=== PATIENT | female | born 1975 ===

== ENCOUNTER 2020-08-29 10:29 | Inpatient (IN) | payer OTHER, SELFPAY ==
[2020-08-29] VITALS (10 sets, daily range): BP systolic 117–140; BP diastolic 66–84; PULSE 58–80; RESP 14–18; TEMP 36.4–37.1; O2SAT 97–100; BMI 25.7
--- NOTE | 2020-08-29 11:25 | ECG_ITS ---
Test Reason : CHEST PRESSURE Blood Pressure : / mmHG Vent. Rate : 054 BPM Atrial Rate : 054 BPM P-R Int : 124 ms QRS Dur : 084 ms QT Int : 392 ms P-R-T Axes : 029 074 053 degrees QTc Int : 371 ms Sinus bradycardia Otherwise normal ECG No previous ECGs available Referred By: Marcio Lauren Electronically Signed By:ELKE SAMPSON MD
--- NOTE | 2020-08-29 11:25 | ED.SYNCOPE ---
HPI - Syncope General Chief Complaint: Headache Stated Complaint: syncope Time Seen by Provider: 08/29/20 12:27 Source: patient Mode of arrival: ambulatory Limitations: no limitations History of Present Illness HPI narrative: patient presents to ED for or witness syncopal fall that occurred on the 16 of August and patient states since then she has had near syncopal episodes, headache, and dizziness. Patient states denies any slurred speech, loss of vision, black curtain like loss of vission in either eye at one time, paralysis, neck pain, fever, or chills. . patient states she has had moments since 08/16 where she feels like she is about to pass out and feels like she is blacking out ( in terms of vision becoming dark) , but never actually passing out. Patient states she gathers herself and never loses consciousness. patient states this has happened before in the past due to low blood pressure. MD complaint: almost passed out Related Data Allergies Allergy/AdvReac Type Severity Reaction Status Date / Time erythromycin base Allergy Severe PANCREATITI Unverified 06/28/20 19:35 [ERYTHROMYCIN BASE] S Penicillins [PCN] Allergy Severe HIVES Unverified 06/28/20 19:35 Review of Systems Review of Systems: Yes all other systems are reviewed and are negative Constitutional: Constitutional: Reports as per HPI and Reports no additional constitutional complaints Eyes: Eyes: Reports as per HPI and Reports no additional eye complaints ENT: Reports system reviewed and no additional complaints, except as documented and Reports as per HPI Cardiovascular: Cardiovascular: Reports as per HPI and Reports no additional cardiovascular complaints Respiratory: Respiratory: Reports as per HPI and Reports no additional respiratory complaints Gastrointestinal: Gastrointestinal: Reports as per HPI and Reports no additional gastrointestinal complaints Musculoskeletal: Musculoskeletal: Reports no additional musculoskeletal complaints and Reports as per HPI Neurologic: Reports system reviewed and no additional complaints, except as documented and Reports as per HPI Psychiatric: Psychiatric: Reports no additional psychiatric complaints and Reports as per HPI [facility] [place] Social History Social History Alcohol intake: never Smoking Status: Never smoker Use of substances other than those prescribed or required for medical reasons: No Advance Directives: No Advance Directives Information Provided: Yes Physical Exam Vital Signs: Vital Signs: Last Vital Signs Temp 98.7 F 08/29/20 11:28 Pulse 80 08/29/20 11:28 Resp 18 08/29/20 11:28 BP 140/81 H 08/29/20 11:28 Pulse Ox 100 08/29/20 15:22 Body Mass Index 25.7 Const: General: cooperative, healthy appearing, comfortable, no acute distress, well developed, alert and awake Orientation/consciousness: patient oriented x3 HENMT: Head: Yes normal to inspection, Yes No palpable skull fracture present, Yes normocephalic, Yes atraumatic, No Friend's sign, No contusion, No hematoma, No laceration, No occipital foramen tenderness, No palpable skull fracture, No raccoon eyes, No scalp lesion, No scalp tenderness, No Temporal artery tenderness present and No periorbital ecchymosis Eyes: General: appearance normal, both eyes and all related structures Neck: Neck: Yes normal visual inspection, Yes full ROM, Yes no lymphadenopathy, Yes no meningeal signs, Yes trachea midline and No tender Chest: Chest palpation & inspection: normal inspection of the chest, normal palpation of entire chest wall and no localized rib tenderness Resp: Effort & Inspection: normal respiratory effort and able to speak in complete sentences Auscultation: clear to auscultation bilaterally Cardio: Jugular venous distension: no JVD Heart sounds: S1 normal heart sound present and S2 normal heart sound present GI: Inspection: Yes normal to inspection and No abdominal wall ecchymosis Palpation (GI): not firm, nontender, no guarding and not rigid : General: No CVA tenderness and Yes no CVA tenderness Back/Spine/Pelvis: Back: no CVA tenderness, No CVA tenderness and No back tenderness Skin: General skin exam: no rashes or lesions noted Neuro: General: patient oriented x3, gait normal, no meningeal signs and CN's II-XI intact bilaterally Cranial nerves: Yes CN's II-XII intact bilaterally Extrem: General: Yes normal to inspection and Yes full ROM Psych: Appearance: grossly normal and well kempt Course Course Course Narrative: patient presently is asymptomatic. Due to patient stating falling hitting head having symptoms ever since. Patient have his CT scan to rule out any bleed or fracture. Patient also have a cardiac workup and also D-dimer due to patient states she is on oral control pills. Although present patient denies any chest pain or shortness of breath. Patient also states chronic right shoulder and right buttock pain due to chronic disease that caused joint issues. Reevaluation(s) Reevaluation #1: patient not in any distress. patient's D-dimer came back positive. Patient sent for chest CT to rule out PE and it came back positive for small PE. Head CT negative for bleed. Spoke with hospitalist who accepted case for patient. Patient started on Lovenox. Time: 16:29 MDM - Syncope MDM Narrative Medical decision making narrative: PE Lab Data Result diagrams: 08/29/20 11:40 08/29/20 11:40 Labs: Lab Results 08/29/20 08/29/20 08/29/20 Range/Units 11:40 11:40 11:40 WBC (4.8-10.8) X10*3/uL RBC (4.20-5.50) X10*6/uL Hgb (12.0-16.0) g/dl Hct (37-47) % MCV (80-98) fL MCH (27.0-33.0) pg MCHC (31.0-35.0) g/dl RDW (11.0-16.0) % Plt Count (160-400) X10*3/uL MPV (9.4-12.3) fL Immature Gran % (Auto) (0.0-0.4) % Neut % (Auto) (45-73) % Lymph % (Auto) (20-40) % Andrew % (Auto) (2-11) % Eos % (Auto) (0-4) % Baso % (Auto) (0-2) % Lymph # (Auto) (1.2-4.9) X10*3/uL Andrew # (Auto) (0.1-1.2) X10*3/uL Eos # (Auto) (0.0-0.4) X10*3/uL Baso # (Auto) (0.0-0.2) X10*3/uL Abs Immat Gran (auto) (0.00-0.03) X10*3/uL Absolute Neuts (auto) (2.0-8.3) X10*3/uL Absolute Nucleated RBC (0.0-0.012) X10*3/uL Nucleated RBC % (auto) (0.0-0.2) /100WBC PT 11.1 (10.8-13.0) SEC INR 0.9 (0.9-1.1) APTT 29.0 (24.1-38.0) SEC D-Dimer 958 NG/ML Sodium 133 L (135-145) mmol/L Potassium 4.9 (3.3-5.1) mmol/l Chloride 102 (96-108) mmol/L Carbon Dioxide 24 (22-29) mmol/L Anion Gap 12 (12-20) BUN 10 (9-16) mg/dL Creatinine 0.81 (0.5-1.4) mg/dL Estim Creat Clear Calc 81.6 Estimated GFR > 60 Random Glucose 88 (60-115) mg/dL Calcium 8.3 L (8.4-10.2) mg/dL Total Bilirubin 0.4 (0.0-1.0) mg/dL AST 19 (5-31) U/L ALT 11 (0-31) U/L Alkaline Phosphatase 55 (39-117) U/L Troponin I High Sens < 3.5 (<3.5-17.0) ng/L Total Protein 6.9 (6.5-8.0) g/dL Albumin 3.9 (3.5-5.0) g/dL Beta HCG, Quant < 2 mIU/mL 1118/20 Range/Units 11:40 WBC 6.5 (4.8-10.8) X10*3/uL RBC 4.00 L (4.20-5.50) X10*6/uL Hgb 11.5 L (12.0-16.0) g/dl Hct 35.9 L (37-47) % MCV 89.8 (80-98) fL MCH 28.8 (27.0-33.0) pg MCHC 32.0 (31.0-35.0) g/dl RDW 13.4 (11.0-16.0) % Plt Count 341 (160-400) X10*3/uL MPV 9.0 L (9.4-12.3) fL Immature Gran % (Auto) 0.2 (0.0-0.4) % Neut % (Auto) 61.2 (45-73) % Lymph % (Auto) 29.2 (20-40) % Andrew % (Auto) 7.3 (2-11) % Eos % (Auto) 1.9 (0-4) % Baso % (Auto) 0.2 (0-2) % Lymph # (Auto) 1.9 (1.2-4.9) X10*3/uL Andrew # (Auto) 0.5 (0.1-1.2) X10*3/uL Eos # (Auto) 0.1 (0.0-0.4) X10*3/uL Baso # (Auto) 0.0 (0.0-0.2) X10*3/uL Abs Immat Gran (auto) 0.01 (0.00-0.03) X10*3/uL Absolute Neuts (auto) 4.0 (2.0-8.3) X10*3/uL Absolute Nucleated RBC 0.000 (0.0-0.012) X10*3/uL Nucleated RBC % (auto) 0.0 (0.0-0.2) /100WBC PT (10.8-13.0) SEC INR (0.9-1.1) APTT (24.1-38.0) SEC D-Dimer NG/ML Sodium (135-145) mmol/L Potassium (3.3-5.1) mmol/l Chloride (96-108) mmol/L Carbon Dioxide (22-29) mmol/L Anion Gap (12-20) BUN (9-16) mg/dL Creatinine (0.5-1.4) mg/dL Estim Creat Clear Calc Estimated GFR Random Glucose (60-115) mg/dL Calcium (8.4-10.2) mg/dL Total Bilirubin (0.0-1.0) mg/dL AST (5-31) U/L ALT (0-31) U/L Alkaline Phosphatase (39-117) U/L Troponin I High Sens (<3.5-17.0) ng/L Total Protein (6.5-8.0) g/dL Albumin (3.5-5.0) g/dL Beta HCG, Quant mIU/mL ECG Data Interpretation: sinus bradycardia. Ventricular rate 54. AR interval 124. QRS 84. Negative STEMI Discharge Plan Discharge Clinical Impression: Pulmonary embolism Patient Disposition: Admitted As Inpatient
[2020-08-29 11:53] LABS: INTERNATIONAL NORM RATIO 0.9 (0.9-1.1); Prothrombin Time 11.1 SEC (10.8-13.0)
[2020-08-29] MEDS: 0.9 % Sodium Chloride 1,000 ML 999 ML IVCONT (11:58)
[2020-08-29 12:15] LABS: MANUAL DIFF FLAG NO
[2020-08-29 12:16] LABS: Basophils Percent Auto 0.2 % (0-2); Eosinophils Absolute Auto 0.1 X10*3/uL (0.0-0.4); Eosinophils Percent Auto 1.9 % (0-4); Hematocrit 35.9 % (37-47); Hemoglobin 11.5 g/dl (12.0-16.0); Imm Gran Abs Auto 0.01 X10*3/uL (0.00-0.03); Imm Gran Pct Auto 0.2 % (0.0-0.4); Lymphocytes Absolute Auto 1.9 X10*3/uL (1.2-4.9); Lymphocytes Percent Auto 29.2 % (20-40); Mean Corpuscular Hemoglobin 28.8 pg (27.0-33.0); Mean Corpuscular Volume 89.8 fL (80-98); Monocytes Absolute Auto 0.5 X10*3/uL (0.1-1.2); Monocytes Percent Auto 7.3 % (2-11); Neutrophils Percent Auto 61.2 % (45-73); Platelet Count 341 X10*3/uL (160-400); Red Cell Distribution Width 13.4 % (11.0-16.0); White Blood Count 6.5 X10*3/uL (4.8-10.8)
[2020-08-29 12:21] LABS: HCG Quantitative < 2 mIU/mL; Troponin-I High Sensitivity < 3.5 ng/L (<3.5-17.0)
[2020-08-29 12:36] LABS: Alanine Aminotransferase 11 U/L (0-31); Albumin Level 3.9 g/dL (3.5-5.0); Alkaline Phosphatase 55 U/L (39-117); Anion Gap 12 (12-20); Aspartate Amino Transferase 19 U/L (5-31); Bilirubin Total 0.4 mg/dL (0.0-1.0); Blood Urea Nitrogen 10 mg/dL (9-16); Calcium 8.3 mg/dL (8.4-10.2); Carbon Dioxide 24 mmol/L (22-29); Chloride 102 mmol/L (96-108); Creatinine Clr Calc Pharmacy 81.6; Estimated Glomerular Filt Rate > 60; Glucose Random 88 mg/dL (60-115); Potassium 4.9 mmol/l (3.3-5.1); Sodium 133 mmol/L (135-145); Total Protein 6.9 g/dL (6.5-8.0)
[2020-08-29 12:40] LABS: D Dimer 958 NG/ML
--- NOTE | 2020-08-29 13:13 | CT_ITS ---
EXAMINATION: CT HEAD WITHOUT CONTRAST CLINICAL INFORMATION: Syncope. COMPARISON: None TECHNIQUE: Contiguous axial imaging was performed from the skull base to vertex without intravenous administration of contrast. Multiplanar reformatted images are submitted. This CT examination was performed using dose optimization techniques as appropriate, variously including the following: *Automated exposure control *Adjustment of mA and/or kV according to patient size (this includes techniques or standardized protocols for targeted exams where dose is matched to indication/reason for exam; i.e. extremities or head) *Use of iterative reconstruction technique DLP: 635 mGy-cm FINDINGS: There is no evidence of acute intracranial hemorrhage or territorial infarction. No abnormal mass effect or midline shift is seen. Gomez to white matter differentiation is well preserved. No extra-axial fluid collections are identified. The ventricles are normal in size. There is no abnormal attenuation within the brain parenchyma. The osseous structures and soft tissues are normal. The mastoid air cells and visualized portions of the paranasal sinuses are well aerated. CT/CT head/brain wo con IMPRESSION: No acute intracranial pathology.
--- NOTE | 2020-08-29 13:13 | CT_ITS ---
EXAMINATION: CT ANGIOGRAM OF THE CHEST WITH AND WITHOUT CONTRAST (CT PULMONARY ANGIOGRAM FOR PE) CLINICAL INFORMATION: Elevated d-dimer, rule out pulmonary embolism. COMPARISON: None TECHNIQUE: Prior to contrast administration, noncontrast localization images were obtained. Subsequently, multidetector volumetric imaging was performed from the thoracic inlet to below the diaphragms following the administration of 65 mLOmnipaque 350 intravenous contrast. No contrast reaction reported Sagittal, coronal, and MIP oblique sagittal reformatted images were obtained on the CT workstation, uploaded to PACS, and reviewed. This CT examination was performed using dose optimization techniques as appropriate, variously including the following: *Automated exposure control *Adjustment of mA and/or kV according to patient size (this includes techniques or standardized protocols for targeted exams where dose is matched to indication/reason for exam; i.e. extremities or head) *Use of iterative reconstruction technique Total exam dose-length product 235 mGy-cm FINDINGS: QUALITY OF STUDY/CONTRAST BOLUS: Satisfactory. PULMONARY ARTERIES: Filling defects are seen and subsegmental branches in the anterior posterior segment of the right lower lobe. No large filling defects are seen in the central arterial branches. THORACIC AORTA: No aneurysm or dissection. LUNGS/PLEURA/AIRWAYS: No significant/suspicious pulmonary nodule is seen. There are no pleural effusions. The airways are patent. MEDIASTINUM: Normal heart size. The thyroid gland is unremarkable. No pericardial effusion. No hilar or mediastinal lymphadenopathy. No evidence of septal bowing or right heart strain. CHEST WALL/AXILLA: No axillary or internal mammary lymphadenopathy. Bilateral subpectoral breast implants are seen in place without abnormality. OSSEOUS STRUCTURES: No acute or suspicious osseous abnormality. UPPER ABDOMEN: Unremarkable. No reflux of contrast into the hepatic veins to suggest elevated right heart pressures. CT/CT angio chest PE protocol IMPRESSION: 1. Positive pulmonary emboli in the anterior posterior segment of the right lower lobe. No other significant pulmonary abnormality. This critical result was discussed with RODERICK Hernandez at 2:19 PM on 08/29/2020 and it was ascertained that the content and urgency of the report was understood at the time of direct communication.
[2020-08-29] MEDS: iohexoL 350 MG/ML 100 ML INFUS..BTL IV (13:37)
[2020-08-29] MEDS: Enoxaparin Sodium 100 MG/ML SYRINGE 65 MG SUBCUT (15:19)
--- NOTE | 2020-08-29 15:20 | PC.NURSE ---
pt medictaed per emar, ambulating to bathroom att w steady gait. awaiting hospitalist eval.
[2020-08-29 16:48] LABS: COVID-19 Test Negative (Negative)
--- NOTE | 2020-08-29 17:53 | US_ITS ---
EXAMINATION: US VENOUS ULTRASOUND WITH DOPPLER LOWER EXTREMITY, BILATERAL CLINICAL INFORMATION: Pulmonary emboli. COMPARISON: None TECHNIQUE: Ultrasound of the deep veins is performed from the hip to the calf with compression sonography and color and pulse Doppler assessment. Spectral analysis with color-flow imaging is performed. FINDINGS: RIGHT: There is normal venous compression and respiratory variation and augmented flow. The visualized common femoral vein, superficial femoral vein, profunda femoral vein, popliteal vein, and the trifurcation region shows no evidence of deep venous thrombosis. There is no significant popliteal fossa cyst. LEFT: There is normal venous compression and respiratory variation and augmented flow. The visualized common femoral vein, superficial femoral vein, profunda femoral vein, popliteal vein, and the trifurcation region shows no evidence of deep venous thrombosis. There is no significant popliteal fossa cyst. There is a normal-appearing lymph node with fatty deondre and a short axis diameter 0.8 cm in the left groin. If the patient's symptoms persist, followup ultrasound in 5 days 7 days might be of value to exclude proximal propagation from a non-visualized calf vein. US/US venous duplex LE BI IMPRESSION: No DVT demonstrated in the bilateral lower extremity.
--- NOTE | 2020-08-29 17:54 | US_ITS ---
EXAMINATION: US EXTRACRANIAL CAROTID DUPLEX, BILATERAL CLINICAL INFORMATION: Syncope COMPARISON: CTA head on 08/29/2020 TECHNIQUE: Real-time ultrasound and Doppler techniques (integrating B-mode 2-D vascular images, Doppler spectral analysis and color-flow Doppler imaging) were utilized to interrogate the extracranial carotid arteries, the vertebral arteries and proximal subclavian arteries bilaterally. The degree of stenosis is determined by criteria similar to NASCET. FINDINGS: Right Side: 1. There is no atherosclerotic plaque seen in the bifurcation/proximal ICA region. 2. The common carotid artery PSV proximally is 77 cm/s and distally 75 cm/s. 3. The proximal internal carotid artery velocities are 74 cm/s systolic and 30 cm/s diastolic. 4. The proximal external carotid artery PSV is 94 cm/s. 5. The vertebral artery shows antegrade flow. 6. The subclavian artery waveforms are normal. Left Side: 1. There is no atherosclerotic plaque seen in the bifurcation/proximal ICA region. 2. The common carotid artery PSV proximally is 90 cm/s and distally 83 cm/s. 3. The proximal internal carotid artery velocities are 97 cm/s systolic and 36 cm/s diastolic. 4. The proximal external carotid artery PSV is 88 cm/s. 5. The vertebral artery shows antegrade flow. 6. The subclavian artery waveforms are normal. US/US carotid duplex BI IMPRESSION: 1. RIGHT: Normal right internal carotid artery without atherosclerotic plaque or hemodynamically significant stenosis. 2. LEFT: Normal left internal carotid artery without atherosclerotic plaque or hemodynamically significant stenosis.
--- NOTE | 2020-08-29 17:55 | P.HPHOSP_ITS ---
History of Present Illness Date of Service: 08/29/20 Chief Complaint: Syncope 45-year-old female who has history of dizziness she says from last year, but said she never passed out , she says usually when she tried to stand and walk she feel dizzy but she take it easy and does not had any episode of passing out until 5 days ago when she was sitting with her child and tried to stand up quickly to do something and then she does not remember she was on the floor- before passing out she says that she felt like she is blacking out and everything going dark, denies any chest pain or shortness of breath or palpitat ions or any seizure-like activity before that. 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 Hirsch who has done outpatient MRI with she is shows subchondral sclerosis in the left hip and she has outpatient appointment being made for ortho. She also says that she is eating and drinking as she regularly does, her orthostatics are fine. Labs hays has mild anemia, hyponatremia mild, EKG shows sinus bradycardia mild. Past medical history hays: EDS hypermobility type. Past surgical history: 1. Has left foot injury has brace. 2. She has ACL replacement and revision of right knee area. 3. Left hip subchondral sclerosis 4. Spinal fusion in neck C5-C6 area 5. Patient also had right shoulder surgery because of arthritis as per the patient. Allergy hays: She says she is allergic to penicillin it gives her hives And also she is allergic to erythromycin-she got pancreatitis as per the patient. Social history hays: Patient lives with her son, denies any use of any recreational drugs, EtOH use, no smoking. Review of Systems Review of Systems: Patient denies any chest pain or shortness of breath or abdominal pain or fever or chills or urinary complaints Patient has left foot pain which is chronic from 2 years due to foot injury Also has left hip pain area due to subchondral sclerosis as per the patient, and limited range of motion. Denies any weakness or numbness or any blurry vision Neurologic: Reports system reviewed and no additional complaints, except as documented and Reports as per [facility] Medical History EDS (Juan-Danlos syndrome) Subchondral sclerosis Surgical History H/O knee surgery H/O shoulder surgery Social History Household Members: Children Housing: Apartment Do you presently have visiting nurse or other home services: No Alcohol intake: never Smoking Status: Never smoker Smoked in Last 30 Days: No Patient Interested in Nicotine Replacement: No Patient Given Instructions on How to Stop Smoking: No Second Hand Smoke Exposure: No Use of substances other than those prescribed or required for medical reasons: No Currently Displaying Signs/Symptoms of Drug Intoxication Withdrawal: No Advance Directives: No Advance Directives Information Provided: Yes Do you have thoughts of harming others: None Do you have a plan to hurt others: No Plan service: No Current occupational status: unemployed Meds Allergies Allergy/AdvReac Type Severity Reaction Status Date / Time erythromycin base Allergy Severe PANCREATITI Unverified 06/28/20 19:35 [ERYTHROMYCIN BASE] S Penicillins [PCN] Allergy Severe HIVES Unverified 06/28/20 19:35 Home Medications Medication Instructions Recorded Confirmed Type buspirone 1 tab PO BID 08/29/20 08/29/20 History clonazepam 0.5 tab PO TID PRN 08/29/20 08/29/20 History dextroamphetamine-amphetamine 1 cap PO QAM 08/29/20 08/29/20 History dextroamphetamine-amphetamine 1 cap PO QAM 08/29/20 08/29/20 History gabapentin 1 tab PO TID 08/29/20 08/29/20 History norethindrone-ethin estradiol 1 tab PO DAILY 08/29/20 08/29/20 History [Nortrel 0.5/35 (28)] oxycodone-acetaminophen 1 tab PO Q8H PRN 08/29/20 08/29/20 History tizanidine 1 tab PO Q8H PRN 08/29/20 08/29/20 History vortioxetine [Trintellix] 1 tab PO DAILY 08/29/20 08/29/20 History Physical Exam Vital Signs and Narrative: Vital Signs: Last Vital Signs Temp 98.7 F 08/29/20 11:28 Pulse 75 08/29/20 16:28 Resp 16 08/29/20 16:28 BP 125/82 08/29/20 16:28 Pulse Ox 100 08/29/20 16:28 Body Mass Index 25.7 Physical exam: Constitutional Awake and Alert, No apparent distress Neck Supple, No lymphadenopathy Cvs: rrr, [id number] , no murmur res: clear to auscultation ,no rhonchii or wheezing abd: no rebound or guarding ,nt, bs present. ext pulses present , no cyanosis Left foot has brace Skin: No rash or erythema. neuro: axo3 , nonfocal. Results Labs CBC and Chem 7: 08/30/20 05:41 08/29/20 11:40 Labs: Laboratory Results - last 24 hr 08/29/20 08/29/20 08/29/20 11:40 11:40 11:40 MCV MCH MCHC RDW Plt Count MPV Immature Gran % (Auto) Neut % (Auto) Lymph % (Auto) [place] % (Auto) Eos % (Auto) Baso % (Auto) Lymph # (Auto) [place] # (Auto) Eos # (Auto) Baso # (Auto) Abs Immat Gran (auto) Absolute Neuts (auto) Absolute Nucleated RBC Nucleated RBC % (auto) PT 11.1 INR 0.9 APTT 29.0 D-Dimer 958 Anion Gap 12 Estim Creat Clear Calc 81.6 Estimated GFR > 60 Random Glucose 88 Calcium 8.3 L Total Bilirubin 0.4 AST 19 ALT 11 Alkaline Phosphatase 55 Troponin I High Sens < 3.5 Total Protein 6.9 Albumin 3.9 Beta HCG, Quant < 2 COVID-19 ([facility]ANDANA) COVID-19 Clin Com 08/29/20 08/29/20 11:40 16:23 MCV 89.8 MCH 28.8 MCHC 32.0 RDW 13.4 Plt Count 341 MPV 9.0 L Immature Gran % (Auto) 0.2 Neut % (Auto) 61.2 Lymph % (Auto) 29.2 [place] % (Auto) 7.3 Eos % (Auto) 1.9 Baso % (Auto) 0.2 Lymph # (Auto) 1.9 [place] # (Auto) 0.5 Eos # (Auto) 0.1 Baso # (Auto) 0.0 Abs Immat Gran (auto) 0.01 Absolute Neuts (auto) 4.0 Absolute Nucleated RBC 0.000 Nucleated RBC % (auto) 0.0 PT INR APTT D-Dimer Anion Gap Estim Creat Clear Calc Estimated GFR Random Glucose Calcium Total Bilirubin AST ALT Alkaline Phosphatase Troponin I High Sens Total Protein Albumin Beta HCG, Quant COVID-19 (VANDANA) Negative COVID-19 Clin Com See Note Imaging Radiologist's Impressions: Impressions Chest CTA 08/29/20 13:13 IMPRESSION: 1. Positive pulmonary emboli in the anterior posterior segment of the right lower lobe. No other significant pulmonary abnormality. This critical result was discussed with RODERICK Hernandez at 2:19 PM on 08/29/2020 and it was ascertained that the content and urgency of the report was understood at the time of direct communication. Head CT 08/29/20 13:13 IMPRESSION: No acute intracranial pathology. Assessment and Plan (1) Pulmonary embolism: Status: Acute (2) EDS (Juan-Danlos syndrome): Status: Inactive (3) Oral contraceptive use: Status: Acute Patient came with syncopal which happened 5 days ago, still feel on and off dizzy subsequently came to the ED: Workup shows pulmonary embolism -as per ED patient was started on Lovenox and admission is requested for syncope and pulmonary embolism. 1. Pulmonary embolism: Probably ? Oral contraceptive use, limited mobility might be contributing Patient was started on Lovenox already Venous duplex 2. syncope: Unclear etiology trops negative, ekg bradycardia Orthostasis negative Added carotid duplex and echo Cardiology evaluation in the morning 3.EDS: Patient has hypermobility type Has left hip subchondral sclerosis and has pain-managing with pain medication and muscle relaxer out patiently as per patient. full code
[2020-08-29] MEDS: Cyclobenzaprine HCl 10 MG TABLET PO (17:59)
[2020-08-29] MEDS: Gabapentin 600 MG TABLET PO (17:59)
[2020-08-29] MEDS: oxyCODONE HCl Immed Release 5 MG TABLET PO (17:59)
--- NOTE | 2020-08-29 18:17 | PC.NURSE ---
pt given one time dose of prn pain medication, tolerating po w.o issue.
--- NOTE | 2020-08-29 23:24 | PC.NURSE ---
called to c to give report and Pee anand will call back for report.
--- NOTE | 2020-08-29 23:44 | PC.NURSE ---
report given to Pee anand.
--- NOTE | 2020-08-30 00:17 | PC.NURSE ---
[place] [facility] [place]
[2020-08-30 00:35] VITALS: BP 151/90; PULSE 64; RESP 16; TEMP 37.1; O2SAT 99
[2020-08-30] MEDS: 0.9 % Sodium Chloride Flush 3 ML SYRINGE IVFLUSH (00:37)
[2020-08-30] MEDS: oxyCODONE HCl Immed Release 5 MG TABLET PO ×3 (00:48→16:06)
[2020-08-30] MEDS: TiZANidine HCL 4 MG TABLET PO ×3 (00:48→16:06)
[2020-08-30] MEDS: Gabapentin 600 MG TABLET PO ×3 (00:48→16:04)
[2020-08-30] MEDS: busPIRone HCl 5 MG TABLET 15 MG PO ×2 (00:50→09:03)
[2020-08-30] MEDS: clonazePAM 1 MG TABLET 0.5 MG PO (00:50)
[2020-08-30] MEDS: Enoxaparin Sodium 80 MG/0.8 ML SYRINGE 65 MG SUBCUT (01:12)
[2020-08-30] MEDS: 0.9 % Sodium Chloride 1,000 ML 100 ML IVCONT ×2 (01:13→09:58)
[2020-08-30 03:47] VITALS: BP 82/53; BP 98/59; PULSE 67; RESP 16; TEMP 36.9; O2SAT 95
[2020-08-30 06:56] LABS: Hematocrit 32.7 % (37-47); Hemoglobin 10.2 g/dl (12.0-16.0); Mean Corpuscular HGB Conc 31.2 g/dl (31.0-35.0); Mean Corpuscular Hemoglobin 28.1 pg (27.0-33.0); Mean Corpuscular Volume 90.1 fL (80-98); Mean Platelet Volume 9.7 fL (9.4-12.3); Platelet Count 326 X10*3/uL (160-400); Red Blood Count 3.63 X10*6/uL (4.20-5.50); Red Cell Distribution Width 13.4 % (11.0-16.0); White Blood Count 5.2 X10*3/uL (4.8-10.8)
[2020-08-30 07:43] VITALS: BP 105/62; PULSE 56; RESP 16; TEMP 36.9; O2SAT 99
[2020-08-30] MEDS: Vortioxetine Hydrobromide 20 MG TABLET PO (09:04)
--- NOTE | 2020-08-30 10:27 | PM.CNCAR ---
History of Present Illness History of Present Illness Date of Consult: August 30, 2020 Chief complaint: syncope,pulm embolism,eds hypermobility Narrative: This is a cardiology consultation regarding syncopal episode. 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 Does not have any known cardiac problems but at 1 point, she has been told to have incomplete right bundle-branch block. Otherwise no known coronary disease or myocardial infarction or cardiomyopathy or in fact any other cardiac concerns. She states that she was talking to her son and all of a sudden she felt dizzy. At that time, seems that she had a syncopal episode. However no cardiac symptoms like angina or shortness of breath or palpitations or seizure-like activity before that. She has been admitted for further evaluation. She states that she is feeling better. Chest CT has shown pulmonary embolism in the right lower lobe. She takes oral contraceptive Review of Systems Review of Systems: Cardiac-positive for dizziness syncope; no angina; shortness of breath or palpitations or leg swelling. Yes all other systems are reviewed and are negative PMFSH Past Medical History Medical History EDS (Juan-Danlos syndrome) Subchondral sclerosis Family History Pertinent family history: No significant family history per patient. Surgical History Surgical History H/O knee surgery H/O shoulder surgery Social History Social History Household Members: Children Housing: Apartment Do you presently have visiting nurse or other home services: No Alcohol intake: never Smoking Status: Never smoker Smoked in Last 30 Days: No Patient Interested in Nicotine Replacement: No Patient Given Instructions on How to Stop Smoking: No Second Hand Smoke Exposure: No Use of substances other than those prescribed or required for medical reasons: No Advance Directives: No Advance Directives Information Provided: Yes Meds Allergies Allergy/AdvReac Type Severity Reaction Status Date / Time erythromycin base Allergy Severe PANCREATITI Unverified 06/28/20 19:35 [ERYTHROMYCIN BASE] S Penicillins [PCN] Allergy Severe HIVES Unverified 06/28/20 19:35 Home Medications Medication Instructions Recorded Confirmed Type buspirone 1 tab PO BID 08/29/20 08/29/20 History clonazepam 0.5 tab PO TID PRN 08/29/20 08/29/20 History dextroamphetamine-amphetamine 1 cap PO QAM 08/29/20 08/29/20 History dextroamphetamine-amphetamine 1 cap PO QAM 08/29/20 08/29/20 History gabapentin 1 tab PO TID 08/29/20 08/29/20 History norethindrone-ethin estradiol 1 tab PO DAILY 08/29/20 08/29/20 History [Nortrel 0.5/35 (28)] oxycodone-acetaminophen 1 tab PO Q8H PRN 08/29/20 08/29/20 History tizanidine 1 tab PO Q8H PRN 08/29/20 08/29/20 History vortioxetine [Trintellix] 1 tab PO DAILY 08/29/20 08/29/20 History Physical Exam Vital Signs: Vital Signs: Last Vital Signs Temp 98.5 F 08/30/20 07:43 Pulse 56 08/30/20 07:43 Resp 16 08/30/20 07:43 BP 105/62 08/30/20 07:43 Pulse Ox 99 08/30/20 07:43 Body Mass Index 25.7 Comfortable, no distress No pallor, icterus or cyanosis HEENT -unremarkable JVD- normal Cardiac- normal heart sounds, no murmurs, gallops or rubs, normal PMI Respiratory-normal breath sounds bilaterally, no crackles, no wheeze Abdomen- soft, nontender Neuro- alert and oriented Lower extremities- no significant edema, warm well perfused Results Labs and Meds Result diagrams: 08/30/20 05:41 08/29/20 11:40 Lab results: Laboratory Results - last 24 hr 08/29/20 08/29/20 08/29/20 11:40 11:40 11:40 WBC RBC Hgb Hct MCV MCH MCHC RDW Plt Count MPV Immature Gran % (Auto) Neut % (Auto) Lymph % (Auto) [place] % (Auto) Eos % (Auto) Baso % (Auto) Lymph # (Auto) [place] # (Auto) Eos # (Auto) Baso # (Auto) Abs Immat Gran (auto) Absolute Neuts (auto) Absolute Nucleated RBC Nucleated RBC % (auto) PT 11.1 INR 0.9 APTT 29.0 D-Dimer 958 Sodium 133 L Potassium 4.9 Chloride 102 Carbon Dioxide 24 Anion Gap 12 BUN 10 Creatinine 0.81 Estim Creat Clear Calc 81.6 Estimated GFR > 60 Random Glucose 88 Calcium 8.3 L Total Bilirubin 0.4 AST 19 ALT 11 Alkaline Phosphatase 55 Troponin I High Sens < 3.5 Total Protein 6.9 Albumin 3.9 Beta HCG, Quant < 2 COVID-19 ([facility]) COVID-19 Clin Com 08/29/20 08/29/20 08/30/20 11:40 16:23 05:41 WBC 6.5 5.2 RBC 4.00 L 3.63 L Hgb 11.5 L 10.2 L Hct 35.9 L 32.7 L MCV 89.8 90.1 MCH 28.8 28.1 MCHC 32.0 31.2 RDW 13.4 13.4 Plt Count 341 326 MPV 9.0 L 9.7 Immature Gran % (Auto) 0.2 Neut % (Auto) 61.2 Lymph % (Auto) 29.2 [place] % (Auto) 7.3 Eos % (Auto) 1.9 Baso % (Auto) 0.2 Lymph # (Auto) 1.9 [place] # (Auto) 0.5 Eos # (Auto) 0.1 Baso # (Auto) 0.0 Abs Immat Gran (auto) 0.01 Absolute Neuts (auto) 4.0 Absolute Nucleated RBC 0.000 0.000 Nucleated RBC % (auto) 0.0 0.0 PT INR APTT D-Dimer Sodium Potassium Chloride Carbon Dioxide Anion Gap BUN Creatinine Estim Creat Clear Calc Estimated GFR Random Glucose Calcium Total Bilirubin AST ALT Alkaline Phosphatase Troponin I High Sens Total Protein Albumin Beta HCG, Quant COVID-19 ([facility]) Negative COVID-19 Clin Com See Note Assessment and Plan (1) Syncope and collapse: Status: Acute (2) Pulmonary embolism: Status: Acute EKG shows underlying sinus bradycardia at 54/Min; normal NV /QTc; otherwise unremarkable. Telemetry shows sinus bradycardia in the 50s but otherwise no significant Chai or tachyarrhythmias. CT scan of the chest as above shows positive pulmonary embolism. Negative orthostatic BPs from ER. Overrnight, she has had some low blood pressures as low as 82/53 mm Hg but now in normal range. From the pulmonary embolic standpoint, can use anticoagulation per protocol. Otherwise based on clinical examination, no obvious cardiac etiology to explain her dizziness /syncope. We can echocardiogram is as an inpatient or as an outpatient depending on when she is getting discharge. Follow-up can be arranged. Procedures Abscess I/D Date of Service: 08/30/20
[2020-08-30 11:53] VITALS: BP 108/59; PULSE 51; RESP 18; TEMP 36.6; O2SAT 98
--- NOTE | 2020-08-30 12:05 | MHC.CM.PN ---
CM met with pt who reports she lives at home with her 5yo autistic son. Pt reports she has no services in the home for herself and has no DME. Pt reports concern regarding being able to navigate her home as it is a 2 story apartment with a basement. CM discussed seeing her PCP to discuss a referral to [facility] based on her insurance. CM will arrange a VNA with [employer] services to assist while she works on the [facility] referral. pt reports she does not have a HCP but would like to complete one naming her mother, Jeniffer Malcolm ([phone]) as her agent. Current DC plan is home with VNA (agency TBD) and a PCP appt to discuss [facility] referral.
--- NOTE | 2020-08-30 12:19 | MHC.CM.PN ---
CM continuing to search for a VNA agency contracted with pts insurance that is able to provide necessary services. Pt is aware she will DC home with VNA and reported having no preferences around agency. ZIGZAG MACHINE OPERATOR contacted pts primary care office to arrange a follow up appt for pt, pt will discuss ongoing home care services at that appt. Per [facility] policy, the nurse will contact pt directly with appt. Pt also aware she will be going home on a new Eliquis prescription. 30 coupon provided along with explanation and instructions on why/how to use it.
--- NOTE | 2020-08-30 14:16 | MHC.CM.PN ---
Pt will discharge home with [facility]. Pt will transport herself at OR
--- NOTE | 2020-08-30 15:18 | PM.DS ---
DS: Providers Provider Date of admission: 08/29/20 17:49 Primary care physician: Frances Gaytan DO Consults: 08/29/20 23:28 Consult to Cardiology Routine Consulting Provider: James Ledesma Reason for consultation: Syncope ? blackout /dizziness Has provider been notified: No Consult to Hematology / Oncology Routine Consulting Provider: Luna Archuleta Reason for consultation: new pulm embolism , Eds Has provider been notified: No 08/30/20 07:36 Consult to Orthopedics Routine Consulting Provider: Fernie North Reason for consultation: EDS-left hip pain /subchondral sclerosis ? Has provider been notified: No DS: Diagnosis Discharge Diagnosis (1) Pulmonary embolism: Status: Acute (2) EDS (Juan-Danlos syndrome): Status: Inactive (3) Oral contraceptive use: Status: Acute DS: Medications Discharge Medications Home Medications: Home Medications Medication Instructions Recorded Confirmed buspirone 1 tab PO BID 08/29/20 08/29/20 clonazepam 0.5 tab PO TID PRN 08/29/20 08/29/20 dextroamphetamine-amphetamine 1 cap PO QAM 08/29/20 08/29/20 dextroamphetamine-amphetamine 1 cap PO QAM 08/29/20 08/29/20 gabapentin 1 tab PO TID 08/29/20 08/29/20 norethindrone-ethin estradiol 1 tab PO DAILY 08/29/20 08/29/20 [Nortrel 0.5/35 (28)] oxycodone-acetaminophen 1 tab PO Q8H PRN 08/29/20 08/29/20 tizanidine 1 tab PO Q8H PRN 08/29/20 08/29/20 vortioxetine [Trintellix] 1 tab PO DAILY 08/29/20 08/29/20 DS: Summary Hospital Course Hospital Course: 45-year-old female who has history of dizziness she says from last year, but said she never passed out , she says usually when she tried to stand and walk she feel dizzy but she take it easy and does not had any episode of passing out until 5 days ago when she was sitting with her child and tried to stand up quickly to do something and then she does not remember she was on the floor-before passing out she says that she felt like she is blacking out and everything going dark, denies any chest pain or shortness of breath or palpitations or any seizure-like activity before that. 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 Hirsch who has done outpatient MRI with she is shows subchondral sclerosis in the left hip and she has outpatient appointment being made for ortho. She also says that she is eating and drinking as she regularly does, her orthostatics are fine. Labs hays has mild anemia, hyponatremia mild, EKG shows sinus bradycardia mild. Past medical history hays: EDS hypermobility type. Past surgical history: 1. Has left foot injury has brace. 2. She has ACL replacement and revision of right knee area. 3. Left hip subchondral sclerosis 4. Spinal fusion in neck C5-C6 area 5. Patient also had right shoulder surgery because of arthritis as per the patient. Hospital Course problem hays section: Patient was found to have pulmonary embolism right lower lobe probably related to limited low mobility due to her underlying EDS, as well as patient was taking contraceptives, started on subcu Lovenox and subsequently patient says her shortness of breath seems better, walking fine without sob. Patient was switched to p.o. Eliquis upon discharge. Venous duplex negative Patient needs to follow up outpatient with Hematology, hematology office number was given to the patient. Syncopal hays: Etiology unclear but Patient was seen by Cardiology, carotid duplex seems fine, orthostasis negative, telemetry seems also fine except some bradycardia. Cardio saw the patient and recommended outpatient workup for syncopal episode. Patient had borderline blood pressure overnight 1 time, patient was told to hydrate well. EDS, left hip-OA / labral injruy stuff: Seen by Ortho recommended outpatient follow-up, patient is to call and make an appointment out patiently with Ortho. Physiotherapy saw the patient-recommended no PT at home at present. workers compensation adjuster have discussed the option of services as per PCP and information given.. Above management discussed with the patient in detail length she understand and in agreement with the above plan, time spent 50 minutes and 50% time spent on counseling. Significant findings: As above. Procedures performed: None. Treatment and response: As above. Complications: None. Time Spent with Patient Time attestation: Total time spent providing and/or coordinating discharge services: Physical Exam Vital Signs: Vital Signs: Last Vital Signs Temp 98 F 08/30/20 11:53 Pulse 51 08/30/20 11:53 Resp 18 08/30/20 11:53 BP 108/59 L 08/30/20 11:53 Pulse Ox 98 08/30/20 11:53 Body Mass Index 25.7 Physical exam: heent: eyes anicteric , no dischrage. Cvs: rrr, [id number] , no murmur res: clear to auscultation ,no rhonchii or wheezing abd: no rebound or guarding ,nt, bs present. ext pulses present , no cyanosis left foot brace. neuro: axo3 , nonfocal. DS: Data Data Completed and Pending Labs on day of discharge: 08/29/20 11:25 ECG 12 lead EKG Stat EKG Documentation DIRECTED 0.9 % Sodium Chloride [Ns] 1,000 ml IVCONT 999 mls/hr 08/29/20 11:40 Add Laboratory Test Stat Complete Blood Count Auto Diff Stat Comprehensive Met. Panel Stat D Dimer Stat HCG Quantitative Stat Partial Thromboplastin Time Stat Prothrombin Time INR Stat Troponin-I High Sensitivity Stat 08/29/20 12:33 Add Laboratory Test Stat 08/29/20 13:13 CT angio chest PE protocol Stat CT head/brain wo con Stat 08/29/20 13:37 iohexoL 350 MG/ML [Omnipaque 350 MG/ML] 100 ml IV ONCE ONE 08/29/20 14:44 Enoxaparin Sodium [Lovenox] 65 mg SUBCUT ONCE STA 08/29/20 16:23 COVID-19 ID NOW ([place]) Stat 08/29/20 17:35 Transfer Order Routine 08/29/20 17:53 Cyclobenzaprine HCl [Flexeril] 10 mg PO ONCE ONE Gabapentin [Neurontin] 600 mg PO ONCE ONE oxyCODONE HCl Immed Release [Roxicodone] 5 mg PO ONCE ONE 08/29/20 17:53 US venous duplex LE BI Stat 08/29/20 17:54 US carotid duplex BI Stat 08/29/20 23:28 Enoxaparin Sodium [Lovenox] 65 mg SUBCUT Q12H 08/29/20 23:28 Intake and Output QSHIFTE 08/30/20 05:41 Complete Blood Count no Diff DAILY@0600 Laboratory Last Values WBC 5.2 X10*3/uL (4.8-10.8) 08/30/20 05:41 RBC 3.63 X10*6/uL (4.20-5.50) L 08/30/20 05:41 Hgb 10.2 g/dl (12.0-16.0) L 08/30/20 05:41 Hct 32.7 % (37-47) L 08/30/20 05:41 MCV 90.1 fL (80-98) 08/30/20 05:41 MCH 28.1 pg (27.0-33.0) 08/30/20 05:41 MCHC 31.2 g/dl (31.0-35.0) 08/30/20 05:41 RDW 13.4 % (11.0-16.0) 08/30/20 05:41 Plt Count 326 X10*3/uL (160-400) 08/30/20 05:41 MPV 9.7 fL (9.4-12.3) 08/30/20 05:41 Immature Gran % (Auto) 0.2 % (0.0-0.4) 08/29/20 11:40 Neut % (Auto) 61.2 % (45-73) 08/29/20 11:40 Lymph % (Auto) 29.2 % (20-40) 08/29/20 11:40 [place] % (Auto) 7.3 % (2-11) 08/29/20 11:40 Eos % (Auto) 1.9 % (0-4) 08/29/20 11:40 Baso % (Auto) 0.2 % (0-2) 08/29/20 11:40 Lymph # (Auto) 1.9 X10*3/uL (1.2-4.9) 08/29/20 11:40 [place] # (Auto) 0.5 X10*3/uL (0.1-1.2) 08/29/20 11:40 Eos # (Auto) 0.1 X10*3/uL (0.0-0.4) 08/29/20 11:40 Baso # (Auto) 0.0 X10*3/uL (0.0-0.2) 08/29/20 11:40 Abs Immat Gran (auto) 0.01 X10*3/uL (0.00-0.03) 08/29/20 11:40 Absolute Neuts (auto) 4.0 X10*3/uL (2.0-8.3) 08/29/20 11:40 Absolute Nucleated RBC 0.000 X10*3/uL (0.0-0.012) 08/30/20 05:41 Nucleated RBC % (auto) 0.0 /100WBC (0.0-0.2) 08/30/20 05:41 PT 11.1 SEC (10.8-13.0) 08/29/20 11:40 INR 0.9 (0.9-1.1) 08/29/20 11:40 APTT 29.0 SEC (24.1-38.0) 08/29/20 11:40 D-Dimer 958 NG/ML 08/29/20 11:40 Sodium 133 mmol/L (135-145) L 08/29/20 11:40 Potassium 4.9 mmol/l (3.3-5.1) 08/29/20 11:40 Chloride 102 mmol/L (96-108) 08/29/20 11:40 Carbon Dioxide 24 mmol/L (22-29) 08/29/20 11:40 Anion Gap 12 (12-20) 08/29/20 11:40 BUN 10 mg/dL (9-16) 08/29/20 11:40 Creatinine 0.81 mg/dL (0.5-1.4) 08/29/20 11:40 Estim Creat Clear Calc 81.6 08/29/20 11:40 Estimated GFR > 60 08/29/20 11:40 Random Glucose 88 mg/dL (60-115) 08/29/20 11:40 Calcium 8.3 mg/dL (8.4-10.2) L 08/29/20 11:40 Total Bilirubin 0.4 mg/dL (0.0-1.0) 08/29/20 11:40 AST 19 U/L (5-31) 08/29/20 11:40 ALT 11 U/L (0-31) 08/29/20 11:40 Alkaline Phosphatase 55 U/L (39-117) 08/29/20 11:40 Troponin I High Sens < 3.5 ng/L (<3.5-17.0) 08/29/20 11:40 Total Protein 6.9 g/dL (6.5-8.0) 08/29/20 11:40 Albumin 3.9 g/dL (3.5-5.0) 08/29/20 11:40 Beta HCG, Quant < 2 mIU/mL 08/29/20 11:40 COVID-19 ([facility]) Negative (Negative) 08/29/20 16:23 COVID-19 Clin Com See Note 08/29/20 16:23 Discharge Plan Discharge Patient Disposition: Home, Self-Care Referrals: [facility] [Outside] Frances Sung DO [Primary Care Provider] - 1 Week (Nurse will call you with a follow up appointment today.) Discharge Medications: New Eliquis 5 mg Tablet 10 mg PO BID Qty: 42 RF: 0 Continued gabapentin 600 mg tablet 1 tab PO TID RF: 0 tizanidine 4 mg tablet 1 tab PO Q8H PRN (Reason: muscle spasm) RF: 0 clonazepam 1 mg tablet 0.5 tab PO TID PRN (Reason: Anxiety) RF: 0 oxycodone-acetaminophen 5-325 mg tablet 1 tab PO Q8H PRN (Reason: pain) RF: 0 dextroamphetamine-amphetamine 10 mg capsule,extended release 24hr 1 cap PO QAM RF: 0 dextroamphetamine-amphetamine 30 mg capsule,extended release 24hr 1 cap PO QAM RF: 0 buspirone 15 mg tablet 1 tab PO BID RF: 0 Trintellix 20 mg tablet 1 tab PO DAILY RF: 0 Discontinued Nortrel 0.5/35 (28) 0.5-35 mg-mcg tablet 1 tab PO DAILY RF: 0 Diet: advance to usual diet Activity on Discharge: As tolerated Visit Report Forms: Patient Portal Discharge page Care Plan Goals: Patient was admitted to the hospital because of for pulmonary embolism, started on blood thinner patient is to continue to take that, and follow-up with Hematology outpatient. Syncope hays: No other episode, only her blood pressure is slightly borderline overnight but improved, seen by Cardiology further workup out patiently and patient was encouraged to hydrate herself. EDS and hip pain hays: Follow-up outpatient with Ortho. In addition patient was advised to cut down slowly her psych medications if possible that might also be contributed to dizziness. Also patient was advised to hold off on oral concert contraceptive and follow-up with PCP for further use since patient has pulmonary embolism. Health Concerns: As above. Plan of Treatment: As above.
[2020-08-30 15:31] VITALS: BP 117/66; PULSE 77; RESP 18; TEMP 37; O2SAT 100
--- NOTE | 2020-08-30 16:17 | W.MHC.F2F ---
Service Date Service Date: 08/30/20 Encounter Date of encounter: 08/30/20 Encounter: Pulmonary embolism, syncope, EDS Reasons for Services Homebound: Leaving the home is medically contraindicated at this time without the asist of a device and/or another person due th the listed conditions above and below. Homebound supporting statement: Patient is generalized weak and needed go to appointments. Certification: Based on the above findings, I certify that this patient is confined to the home and needs intermittent [facility] care, physical therapy and/or speech therapy, or continues to need occupational therapy. The patient is under my care, and I have initiated the establishment of the plan of care. The patient will be followed by a physician who will periodically review the plan of care.
== END 2020-08-30 16:24 | disposition home health service (06) | DRG 134 ==
LOC: HO.ED 16:30 → HO.IMC 21:04
PROVIDERS: Physician Assistant; Admitting Provider Internal Medicine; Emergency Provider Emergency Medicine; PCP Internal Medicine; Visit Provider Internal Medicine
DX: I26.99 Other pulmonary embolism without acute cor pulmonale (principal); Q79.60 Ehlers-Danlos syndrome, unspecified; Z20.828 Contact with and (suspected) exposure to other viral communicable diseases; Z88.0 Allergy status to penicillin; Z79.3 Long term (current) use of hormonal contraceptives; Z79.01 Long term (current) use of anticoagulants; Z79.890 Hormone replacement therapy; Z79.899 Other long term (current) drug therapy
CPT/HCPCS: 36415; 70450; 71275; 80053; 84484; 84702; 85025; 85027; 85379; 85610; 85730; 87635; 93005; 93880; 93970; 96360; 96372; 97161; 99285; J1650; Q9967

== ENCOUNTER 2020-09-02 21:27 | Emergency (ER) | payer OTHER, SELFPAY ==
--- NOTE | 2020-09-02 08:39 | ECG_ITS ---
Test Reason : ARRHYTHMIA Blood Pressure : / mmHG Vent. Rate : 054 BPM Atrial Rate : 054 BPM P-R Int : 140 ms QRS Dur : 084 ms QT Int : 394 ms P-R-T Axes : 044 064 053 degrees QTc Int : 373 ms Sinus bradycardia Otherwise normal ECG When compared with ECG of 29-AUG-2020 16:01, No significant change was found Referred By: Francis Michelle Electronically Signed By:ELKE SAMPSON MD
[2020-09-02 21:40] VITALS: BP 115/68; PULSE 68; RESP 15; TEMP 36.9; O2SAT 98; BMI 25.7
--- NOTE | 2020-09-02 21:50 | ED.ARRPALP ---
HPI - Arrhythmia/Palpitations General Chief Complaint: Arrhythmia/Palpitations Stated Complaint: CP/SOB Time Seen by Provider: 09/02/20 21:49 Source: patient Mode of arrival: ambulatory Limitations: no limitations History of Present Illness HPI narrative: patient with recent diagnosis of PE on 08/29 after use of control pills on Eliquis 10 mg twice a day discharge 3 days ago comes back as while going upstairs patient notices palpitations check the heart rate on her wash was 140, with chest heaviness which lasted for 10 minutes now she is complaining of increased weakness no palpitation at this time patient denies any shortness of breath patient never had palpitations in the past patient denies any dizziness loss of consciousness MD complaint: rapid heart beat Related Data Home Medications Medication Instructions Recorded Confirmed Trintellix 1 tab PO DAILY 08/29/20 08/29/20 buspirone 1 tab PO BID 08/29/20 08/29/20 clonazepam 0.5 tab PO TID PRN 08/29/20 08/29/20 dextroamphetamine-amphetamine 1 cap PO QAM 08/29/20 08/29/20 dextroamphetamine-amphetamine 1 cap PO QAM 08/29/20 08/29/20 gabapentin 1 tab PO TID 08/29/20 08/29/20 oxycodone-acetaminophen 1 tab PO Q8H PRN 08/29/20 08/29/20 tizanidine 1 tab PO Q8H PRN 08/29/20 08/29/20 Previous Rx's Medication Instructions Recorded apixaban [Eliquis] 10 mg PO BID #42 tab 08/30/20 Allergies Allergy/AdvReac Type Severity Reaction Status Date / Time erythromycin base Allergy Severe PANCREATITI Unverified 06/28/20 19:35 [ERYTHROMYCIN BASE] S Penicillins [PCN] Allergy Severe HIVES Unverified 06/28/20 19:35 Review of Systems Review of Systems: REVIEW OF SYSTEMS: Pertinent positives and negatives are stated above in the history. GEN: no fevers, chills, fatigue ++ HEENT: no nasal congestion, sore throat, ear pain NEURO: no headache, dizziness, focal weakness PULM: no cough, shortness of breath CV:+ chest painm and palpitations, -ve LE edema ABD: no abdominal pain, nausea, vomiting, diarrhea : no dysuria, urgency, frequency SKIN: no rash ROS otherwise negative x 10 [facility] Past Medical History Medical History EDS (Juan-Danlos syndrome) Subchondral sclerosis Surgical History H/O knee surgery H/O shoulder surgery Social History Social History Household Members: Children Housing: Apartment Alcohol intake: never Smoking Status: Never smoker Smoked in Last 30 Days: No Second Hand Smoke Exposure: No Use of substances other than those prescribed or required for medical reasons: No Advance Directives: No Advance Directives Information Provided: Yes service: No Current occupational status: unemployed Physical Exam Vital Signs: Vital Signs: Last Vital Signs Temp 98.4 F 09/02/20 21:40 Pulse 56 09/02/20 22:41 Resp 15 09/02/20 22:41 BP 115/68 09/02/20 21:40 Pulse Ox 98 09/02/20 22:41 Body Mass Index 25.7 Const: General: cooperative and healthy appearing Nutritional Appearance: average body habitus Orientation/consciousness: oriented to person, oriented to place and oriented to time Limitations: no limitations HENMT: Mouth: moist mucous membranes Resp: Effort & Inspection: normal respiratory effort Auscultation: clear to auscultation bilaterally, no crackles, no rales and no rhonchi Cardio: Rate: regular rate Rhythm: regular rhythm Heart sounds: S1 normal heart sound present and S2 normal heart sound present Peripheral pulses: Peripheral pulses 2+ throughout GI: Inspection: Yes normal to inspection Palpation (GI): Soft to palpation and nontender Back/Spine/Pelvis: Thoracic/Lumbar Spine: thoracic and lumbar spine normal to inspection Neuro: General: oriented to person, oriented to place, oriented to time, gait normal, moves all extremities and Normal light touch and pain sensation Course Course Course Narrative: during stay in the ER environmental monitoring technician showed normal sinus rhythm with heart rate around 57-60 no arrhythmias noticed MDM - Arrhythmia/Palpitations Differential Diagnosis Differential diagnosis: Likely palpitations, anxiety, sinus tachycardia and artial fibrillation Lab Data Result diagrams: 09/02/20 23:00 09/02/20 22:22 Labs: Lab Results 09/02/20 09/02/2009/02/20 Range/Units 22:22 22:22 23:00 WBC 7.1 (4.8-10.8) X10*3/uL RBC 4.09 L (4.20-5.50) X10*6/uL Hgb 11.7 L (12.0-16.0) g/dl Hct 36.3 L (37-47) % MCV 88.8 (80-98) fL MCH 28.6 (27.0-33.0) pg MCHC 32.2 (31.0-35.0) g/dl RDW 13.3 (11.0-16.0) % Plt Count 308 (160-400) X10*3/uL MPV 9.3 L (9.4-12.3) fL Immature Gran % (Auto) 0.3 (0.0-0.4) % Neut % (Auto) 54.0 (45-73) % Lymph % (Auto) 35.0 (20-40) % [place] % (Auto) 8.3 (2-11) % Eos % (Auto) 2.0 (0-4) % Baso % (Auto) 0.4 (0-2) % Lymph # (Auto) 2.5 (1.2-4.9) X10*3/uL [place] # (Auto) 0.6 (0.1-1.2) X10*3/uL Eos # (Auto) 0.1 (0.0-0.4) X10*3/uL Baso # (Auto) 0.0 (0.0-0.2) X10*3/uL Abs Immat Gran (auto) 0.02 (0.00-0.03) X10*3/uL Absolute Neuts (auto) 3.9 (2.0-8.3) X10*3/uL Absolute Nucleated RBC 0.000 (0.0-0.012) X10*3/uL Nucleated RBC % (auto) 0.0 (0.0-0.2) /100WBC Sodium 138 (135-145) mmol/L Potassium 4.8 (3.3-5.1) mmol/l Chloride 102 (96-108) mmol/L Carbon Dioxide 23 (22-29) mmol/L Anion Gap 18 (12-20) BUN 13 (9-16) mg/dL Creatinine 0.78 (0.5-1.4) mg/dL Estim Creat Clear Calc 84.7 Estimated GFR > 60 Random Glucose 91 (60-115) mg/dL Calcium 8.6 (8.4-10.2) mg/dL Troponin I High Sens < 3.5 (<3.5-17.0) ng/L ECG Data Attestation: I personally reviewed and interpreted this ECG as follows: ECG interpretation date: 09/02/20 Prior ECG tracings: available for review Interpretation: sinus bradycardia with heart rate of 54 normal axis and intervals no acute ischemic changes impression sinus bradycardia Discharge Plan Discharge Clinical Impression: Palpitations Patient Disposition: Home, Self-Care Instructions: Heart Palpitations (ED) Additional Instructions: follow-up with your PCP. for further workup if palpitation recurs, Continue your medications Prescriptions: No Action gabapentin 600 mg tablet 1 tab PO TID RF: 0 tizanidine 4 mg tablet 1 tab PO Q8H PRN (Reason: muscle spasm) RF: 0 clonazepam 1 mg tablet 0.5 tab PO TID PRN (Reason: Anxiety) RF: 0 oxycodone-acetaminophen 5-325 mg tablet 1 tab PO Q8H PRN (Reason: pain) RF: 0 dextroamphetamine-amphetamine 10 mg capsule,extended release 24hr 1 cap PO QAM RF: 0 dextroamphetamine-amphetamine 30 mg capsule,extended release 24hr 1 cap PO QAM RF: 0 buspirone 15 mg tablet 1 tab PO BID RF: 0 Trintellix 20 mg tablet 1 tab PO DAILY RF: 0 Eliquis 5 mg Tablet 10 mg PO BID Qty: 42 RF: 0 Interventions: ED Discharge Assessment Last Done: 09/02/20 23:37 Discharge Date/Time: 09/02/20 23:38
[2020-09-02] MEDS: Apixaban 5 MG TABLET 10 MG PO (22:35)
[2020-09-02 22:41] VITALS: PULSE 56; RESP 15; O2SAT 98
--- NOTE | 2020-09-02 22:41 | PC.NURSE ---
Pt's daughter Rose Mary would like call with updates [phone]
--- NOTE | 2020-09-02 22:48 | PC.NURSE ---
ORDER ENTERED FOR REPEAT CBC W/AUTO DIFF TO BE DRAWN. SPOKE WITH LAB PRIOR TO [employer] DEVELOPER. PRIMARY RN AWARE.
[2020-09-02 22:57] LABS: Anion Gap 18 (12-20); Blood Urea Nitrogen 13 mg/dL (9-16); Calcium 8.6 mg/dL (8.4-10.2); Carbon Dioxide 23 mmol/L (22-29); Chloride 102 mmol/L (96-108); Creatinine Clr Calc Pharmacy 84.7; Estimated Glomerular Filt Rate > 60; Glucose Random 91 mg/dL (60-115); Potassium 4.8 mmol/l (3.3-5.1); Sodium 138 mmol/L (135-145)
[2020-09-02 23:02] LABS: Troponin-I High Sensitivity < 3.5 ng/L (<3.5-17.0)
[2020-09-02 23:05] LABS: Basophils Percent Auto 0.4 % (0-2); Eosinophils Absolute Auto 0.1 X10*3/uL (0.0-0.4); Hematocrit 36.3 % (37-47); Hemoglobin 11.7 g/dl (12.0-16.0); Imm Gran Abs Auto 0.02 X10*3/uL (0.00-0.03); Imm Gran Pct Auto 0.3 % (0.0-0.4); Lymphocytes Absolute Auto 2.5 X10*3/uL (1.2-4.9); MANUAL DIFF FLAG NO; Mean Corpuscular HGB Conc 32.2 g/dl (31.0-35.0); Mean Corpuscular Hemoglobin 28.6 pg (27.0-33.0); Mean Corpuscular Volume 88.8 fL (80-98); Mean Platelet Volume 9.3 fL (9.4-12.3); Monocytes Absolute Auto 0.6 X10*3/uL (0.1-1.2); Monocytes Percent Auto 8.3 % (2-11); Neutrophils Absolute Auto 3.9 X10*3/uL (2.0-8.3); Platelet Count 308 X10*3/uL (160-400); Red Blood Count 4.09 X10*6/uL (4.20-5.50); Red Cell Distribution Width 13.3 % (11.0-16.0); White Blood Count 7.1 X10*3/uL (4.8-10.8)
== END 2020-09-02 23:38 | disposition home or self-care (01) ==
PROVIDERS: Emergency Provider Internal Medicine; PCP Internal Medicine
DX: R00.2 Palpitations (principal); Z86.711 Personal history of pulmonary embolism; Z79.01 Long term (current) use of anticoagulants; Z79.899 Other long term (current) drug therapy
CPT/HCPCS: 36415; 80048; 84484; 85025; 93005; 99283; 99284

== ENCOUNTER → 2020-09-13 11:31 | Outpatient (REF) | payer OTHER, SELFPAY ==
--- NOTE | 2020-09-13 11:33 | CA_ITS ---
Transthoracic Echocardiogram Patient (Last, First, Middle): Deb Malcolm, Gender: Female Date of : 1975 Age: 45 Procedure Date: 09/13/2020 Procedure Type: Transthoracic Echocardiogram Location: OP Height: 160.02 cm Weight: 65.77 kg BSA: 1.69 m2 Heart Rate: bpm BP: 104 / 68 mmHg Civil Engineering Drafter: GEORGINA German MD: James Ledesma MD Executive Marketing Assistant: Toñito Menezes MD Symptoms: R55 - Syncope and collapse Study Quality: Fair ECG Rhythm: Sinus Conclusions: - Low normal LV systolic function otherwise normal study Findings Left Ventricle Normal left ventricular cavity size. There is normal left ventricular wall thickness. The left ventricular systolic function is low normal. Diastolic function is normal for age. Right Ventricle Normal right ventricular cavity size and systolic function. Atria Both atria are normal in size. There is no evidence of interatrial shunt. Aortic Valve Normal aortic valve structure and function. There is no aortic valve stenosis. There is no aortic valve regurgitation. Mitral Valve Normal mitral valve structure and function. There is trace mitral valve regurgitation. There is no mitral valve stenosis. Pulmonic Valve The pulmonic valve was not well visualized. Tricuspid Valve Likely normal tricuspid valve structure and function. There is trace tricuspid valve regurgitation. The right ventricular systolic pressure is normal. The right ventricular systolic pressure is 15 mmHg. Normal right atrial pressure. There is no evidence of pulmonary hypertension. Great Vessels All visible segments of the aorta are normal in size. The pulmonary artery was not well visualized. Venous The inferior vena cava is normal in size and collapses greater than 50% with inspiration. Pericardium/Pleural There is no evidence of pericardial effusion. Prior Study Comparison No prior study available for comparison. Measurements 2D Linear Measurements RVIDd: 2.74 RVIDd Index: 1.62 IVSd: 0.59 0.6-0.9/0.6-1.0 cm LVIDd: 5.01 3.9-5.3/4.2-5.9 cm LVIDd Index: 2.96 2.4-3.2/2.2-3.1 cm/m2 LVIDs: 3.60 2.0-3.6 cm LVPWd: 0.68 0.7-1.1 cm Ao Root: 2.80 2.1-3.5 cm LA Diam: 2.70 2.7-3.8/3.0-4.0 cm LAIDs Index: 1.60 1.5-2.3 cm/m2 LV Mass: 126.92 67-162/88-224 g LV Mass Index: 75.10 43-95/49-115 g/m2 LVOT Diam: 2.20 3.0+(-)1.3 cm 2D Systolic Function EF 4C: 48.10 >55% EF 2C: 64.70 >55% Mitral Valve MV Pk E: 0.50 MV PK A: 0.41 MV Decel Time: 183.00 E/A: 1.20 E'Lateral: 6.85 E'Medial: 6.64 E/E' Med: 7.60 E/E' Lat: 7.30 Aortic Valve AoV Pk Arsh: 1.12 AoV Mn Arsh: 0.88 AoV VTI: 0.18 AoV Pk Grad: 5.00 Aov Mn Grad: 3.00 DIYA Cont.VTI: 2.58 LVOT LVOT Pk Arsh: 0.72 LVOT Mn Arsh: 0.55 LVOT VTI: 0.12 LVOT Pk Grad: 2.00 LVOT Mn Grad: 1.00 LVOT Diam: 2.20 LVOT Area: 3.80 Diastolic Function MV Pk E: 0.50 MV Pk A: 0.41 E/A: 1.20 E'Medial: 6.64 E/E' Med: 7.60 E' Laterial: 6.85 E/E' Lat: 7.30 Tricuspid Valve TR Pk Arsh: 1.74 TR Pk Grad: 12.00 RA Press: 3.00 RVSP: 15.00 Great Vessels Aorta Ao Root-2D: 2.80 2.0-3.7 cm Ao Asc: 2.50 2.1-3.4 cm Ao Arch: 2.40 Updated in Other Vendor System with Status of Final Toñito Menezes MD electronically signed on 09/14/2020 3:54:44 PM with status of Final
== END ==
LOC: HO.CARD 11:31
PROVIDERS: Visit Provider Internal Medicine
DX: R55 Syncope and collapse (principal)
CPT/HCPCS: 93306

== ENCOUNTER → 2020-09-20 14:47 | Outpatient (BNVA) | payer OTHER, SELFPAY | PROVIDERS: PCP Internal Medicine; Referring Provider Internal Medicine; Visit Provider Internal Medicine | DX: R55 Syncope and collapse (principal); I26.99 Other pulmonary embolism without acute cor pulmonale; Q79.60 Ehlers-Danlos syndrome, unspecified | CPT/HCPCS: 99212 ==

== ENCOUNTER → 2020-09-21 10:58 | Outpatient (BNVA) | payer OTHER, SELFPAY | PROVIDERS: PCP Internal Medicine; Referring Provider Internal Medicine; Visit Provider Physician Assistant | DX: M25.552 Pain in left hip (principal) | CPT/HCPCS: 99202 ==

== ENCOUNTER 2020-10-01 12:24 | Outpatient (REF) | payer OTHER, SELFPAY | END 2020-10-01 12:25 | disposition home or self-care (01) | LOC: HO.LAB 12:24 | PROVIDERS: PCP Internal Medicine; Visit Provider Internal Medicine | DX: Z20.828 Contact with and (suspected) exposure to other viral communicable diseases (principal) | CPT/HCPCS: C9803; U0003 ==

== ENCOUNTER 2020-10-04 10:39 | Inpatient (IN) | payer OTHER, SELFPAY ==
[2020-10-04] VITALS (8 sets, daily range): BP systolic 55–103; BP diastolic 37–55; PULSE 44–69; RESP 12–20; TEMP 36.1–36.6; O2SAT 96–100; BMI 25.7
--- NOTE | 2020-10-04 11:14 | XR_ITS ---
EXAMINATION: XR CHEST CLINICAL INFORMATION: Shortness of breath COMPARISON: None TECHNIQUE: Portable upright AP view of the chest was obtained. FINDINGS: The lungs are clear. There is no airspace consolidation or groundglass opacity or effusion. The heart is normal in size and the hilar and mediastinal contours are normal. Vascularity normal. There is gentle dextrocurvature lower thoracic spine. XR/XR chest 1V IMPRESSION: Unremarkable examination.
--- NOTE | 2020-10-04 11:14 | CT_ITS ---
EXAMINATION: CT HEAD WITHOUT CONTRAST CLINICAL INFORMATION: Head injury. On Eliquis. COMPARISON: CT had noncontrast 08/29/2020. TECHNIQUE: Contiguous axial imaging was performed from the skull base to vertex without intravenous administration of contrast. Additional 2-D coronal and sagittal reformatted images are generated on the CT workstation and uploaded to PACS. This CT examination was performed using dose optimization techniques as appropriate, variously including the following: *Automated exposure control *Adjustment of mA and/or kV according to patient size (this includes techniques or standardized protocols for targeted exams where dose is matched to indication/reason for exam; i.e. extremities or head) *Use of iterative reconstruction technique DLP: 580 mGy-cm FINDINGS: There is no intracranial hemorrhage, hematoma, or extra-axial fluid collection. The ventricles are normal in size. There is no hydrocephalus, edema, or mass effect. The vargas-white matter differentiation appears symmetric. There is no visible acute territorial infarct or mass lesion. The calvarium appears intact. There is no pneumocephalus or orbital emphysema. The visualized sinuses and middle ears and mastoid air cells show no significant mucosal thickening. There are no air-fluid levels. CT/CT head/brain wo con IMPRESSION: No acute intracranial abnormality.
--- NOTE | 2020-10-04 11:14 | ECG_ITS ---
Test Reason : DIZZY Blood Pressure : / mmHG Vent. Rate : 052 BPM Atrial Rate : 052 BPM P-R Int : 150 ms QRS Dur : 086 ms QT Int : 426 ms P-R-T Axes : 050 092 075 degrees QTc Int : 396 ms Sinus bradycardia Rightward axis Borderline ECG When compared with ECG of 02-SEP-2020 21:52, No significant change was found Referred By: Thi Canela Electronically Signed By:ALEKS KELLEY MD
[2020-10-04 11:53] LABS: Basophils Percent Auto 0.3 % (0-2); Eosinophils Absolute Auto 0.2 X10*3/uL (0.0-0.4); Eosinophils Percent Auto 2.3 % (0-4); Hematocrit 35.6 % (37-47); Hemoglobin 11.3 g/dl (12.0-16.0); Imm Gran Abs Auto 0.03 X10*3/uL (0.00-0.03); Imm Gran Pct Auto 0.4 % (0.0-0.4); Lymphocytes Absolute Auto 1.7 X10*3/uL (1.2-4.9); Lymphocytes Percent Auto 24.8 % (20-40); MANUAL DIFF FLAG NO; Mean Corpuscular HGB Conc 31.7 g/dl (31.0-35.0); Mean Corpuscular Hemoglobin 28.1 pg (27.0-33.0); Mean Corpuscular Volume 88.6 fL (80-98); Mean Platelet Volume 9.6 fL (9.4-12.3); Monocytes Absolute Auto 0.6 X10*3/uL (0.1-1.2); Monocytes Percent Auto 8.9 % (2-11); Neutrophils Absolute Auto 4.4 X10*3/uL (2.0-8.3); Neutrophils Percent Auto 63.3 % (45-73); Platelet Count 334 X10*3/uL (160-400); Red Blood Count 4.02 X10*6/uL (4.20-5.50); Red Cell Distribution Width 12.8 % (11.0-16.0)
[2020-10-04] MEDS: 0.9 % Sodium Chloride 1,000 ML 999 ML IVCONT (11:58)
[2020-10-04 12:02] LABS: INTERNATIONAL NORM RATIO 1.4 (0.9-1.1); Prothrombin Time 16.7 SEC (10.8-13.0)
[2020-10-04 12:09] LABS: COVID-19 Test Negative (Negative); IDNOW Serial# 9DD0AD1C
[2020-10-04 12:22] LABS: Alanine Aminotransferase 13 U/L (0-31); Albumin Level 4.3 g/dL (3.5-5.0); Alkaline Phosphatase 67 U/L (39-117); Anion Gap 15 (12-20); Aspartate Amino Transferase 24 U/L (5-31); Bilirubin Direct 0.3 mg/dL (0.0-0.5); Bilirubin Total 0.7 mg/dL (0.0-1.0); Blood Urea Nitrogen 20 mg/dL (9-16); Calcium 9.7 mg/dL (8.4-10.2); Carbon Dioxide 28 mmol/L (22-29); Chloride 98 mmol/L (96-108); Creatinine Clr Calc Pharmacy 39.5; Estimated Glomerular Filt Rate 33; Glucose Random 104 mg/dL (60-115); Magnesium 2.1 mg/dL (1.6-2.6); Potassium 4.7 mmol/l (3.3-5.1); Sodium 136 mmol/L (135-145); Total Protein 7.4 g/dL (6.5-8.0)
[2020-10-04 12:29] LABS: HCG Quantitative < 2 mIU/mL; Troponin-I High Sensitivity < 3.5 ng/L (<3.5-17.0)
--- NOTE | 2020-10-04 12:59 | ED_ITS ---
HPI - Weakness General Chief complaint: Weakness Stated complaint: fall - dizziness Time Seen by Provider: 10/04/20 11:14 History of Present Illness HPI Narrative: Patient is a 45-year-old female with a history of connective tissue disorder. Presented today with generalized malaise weakness. Patient claims every time she sits up she is having feelings of almost passing out. Actually passed out twice. Patient did hit her head. Feels very tired. Also been having heavy menstrual bleeding. Patient has a history of being on Eliquis. She is on it for pulmonary emboli that was discovered previously. No coughing or congestion or upper respiratory symptoms. No diaphoresis. Patient is from home. No chest pain. No overt nausea no vomiting. No focal weakness. Positive feeling extremely tired. Related Data Home Medications Medication Instructions Recorded Confirmed Trintellix 20 mg PO QAM 08/29/20 10/04/20 buspirone 15 mg PO BID 08/29/20 10/04/20 clonazepam 0.5 tab PO TID PRN 08/29/20 10/04/20 dextroamphetamine-amphetamine 10 mg PO QAM 08/29/20 10/04/20 dextroamphetamine-amphetamine 30 mg PO QAM 08/29/20 10/04/20 gabapentin 600 mg PO TID 08/29/20 10/04/20 oxycodone-acetaminophen 1 tab PO Q8H PRN 08/29/20 10/04/20 tizanidine 4 mg PO Q8H PRN 08/29/20 10/04/20 apixaban 2.5 mg tablet 2.5 mg PO BID 09/20/20 10/04/20 multivitamin 1 tab PO DAILY 10/04/20 10/04/20 Allergies Allergy/AdvReac Type Severity Reaction Status Date / Time erythromycin base Allergy Severe PANCREATITI Verified 09/21/20 11:08 [ERYTHROMYCIN BASE] S Penicillins [PCN] Allergy Severe HIVES Verified 09/21/20 11:08 Review of Systems Review of Systems: Positive generalized malaise positive diffuse body ache positive headache positive head injury positive nausea positive heavy menstrual bleeding no rectal bleeding stools normal no vomiting Yes all other systems are reviewed and are negative PMFSH Past Medical History Attestation statement: The following information was validated with the patient. Source: unable to obtain Medical History EDS (Juan-Danlos syndrome) Oral contraceptive use Subchondral sclerosis Subchondral sclerosis Surgical History H/O knee surgery H/O shoulder surgery Family History Family History Paternal Aunt Breast cancer Father Diabetes High cholesterol HTN (hypertension) Maternal Uncle Stroke Maternal Grandfather Emphysema lung Lung cancer Maternal Grandmother Asthma Son Asthma Social History Social History Household Members: Children Housing: Apartment Alcohol intake: never Smoking Status: Never smoker Second Hand Smoke Exposure: No Use of substances other than those prescribed or required for medical reasons: No Advance Directives: No Advance Directives Information Provided: No service: No Current occupational status: unemployed Physical Exam Vital Signs: Vital Signs: Last Vital Signs Temp 97.8 F 10/04/20 11:19 Pulse 44 L 10/04/20 12:00 Resp 16 10/04/20 12:00 BP 75/41 L 10/04/20 12:00 Pulse Ox 96 10/04/20 11:19 Body Mass Index 25.7 Appearance: Alert. Oriented X3. Sick appearing Eyes: Pupils equal, round and reactive to light. ENT: Pharynx normal. Mucous membrane was pale Neck: Normal inspection. Neck supple. No lymph nodes noted. No crepitus CVS: Normal heart rate and rhythm. Pulses normal. Normal S1 and S2 Respiratory: No respiratory distress. Breath sounds normal. No Wheezing. No rales Abdomen: Soft and nontender. No rigidity. No distention. good BS x4 Skin: Skin warm and dry. Normal skin color. Normal skin turgor. Extremities: No lower extremity edema. Neurovascular intact to all extremities. No Lacerations. No Rash Neuro: Oriented X 3. No motor deficit. No sensory deficit. Moving all extermities. No slurred speech NIH Stroke Scale Internal: Initial- Upon Arrival Level of Consciousness: Alert Level of Consciousness Questions: Answers both questions correctly Level of Consciousness Commands: Performs both tasks correctly Best Gaze: Normal Visual: No visual loss Facial Palsy: Normal Motor Arm (Right): No drift Motor Arm (Left): No drift Motor Leg (Right): No drift Motor Leg (Left): No drift Limb Ataxia: Absent Sensory: Normal Best Language: No aphasia Dysarthia: Normal Extinction and Inattention: No abnormality Score: 0 MDM - Weakness MDM Narrative Medical decision making narrative: CT scan of the head was grossly negative for any acute evidence of bleeding. Given patient has a history of connective tissue disorder had syncopal episode had low blood pressure initially. A CT scan of the chest abdomen pelvis was done. There is no evidence for dissection no evidence for aneurysm. Patient's electrolytes showed an elevated BUN and creatinine consistent with dehydration. Multiple L of IV fluid was given. Blood pressure improved. Patient is to be admitted for further monitoring. Currently in stable condition. Lab Data Result diagrams: 10/04/20 11:39 10/04/20 11:39 Labs: Lab Results 10/04/20 10/04/20 10/04/20 Range/Units 11:39 11:39 11:39 WBC 7.0 (4.8-10.8) X10*3/uL RBC 4.02 L (4.20-5.50) X10*6/uL Hgb 11.3 L (12.0-16.0) g/dl Hct 35.6 L (37-47) % MCV 88.6 (80-98) fL MCH 28.1 (27.0-33.0) pg MCHC 31.7 (31.0-35.0) g/dl RDW 12.8 (11.0-16.0) % Plt Count 334 (160-400) X10*3/uL MPV 9.6 (9.4-12.3) fL Immature Gran % (Auto) 0.4 (0.0-0.4) % Neut % (Auto) 63.3 (45-73) % Lymph % (Auto) 24.8 (20-40) % [place] % (Auto) 8.9 (2-11) % Eos % (Auto) 2.3 (0-4) % Baso % (Auto) 0.3 (0-2) % Lymph # (Auto) 1.7 (1.2-4.9) X10*3/uL [place] # (Auto) 0.6 (0.1-1.2) X10*3/uL Eos # (Auto) 0.2 (0.0-0.4) X10*3/uL Baso # (Auto) 0.0 (0.0-0.2) X10*3/uL Abs Immat Gran (auto) 0.03 (0.00-0.03) X10*3/uL Absolute Neuts (auto) 4.4 (2.0-8.3) X10*3/uL Absolute Nucleated RBC 0.000 (0.0-0.012) X10*3/uL Nucleated RBC % (auto) 0.0 (0.0-0.2) /100WBC PT 16.7 H (10.8-13.0) SEC INR 1.4 H (0.9-1.1) Sodium 136 (135-145) mmol/L Potassium 4.7 (3.3-5.1) mmol/l Chloride 98 (96-108) mmol/L Carbon Dioxide 28 (22-29) mmol/L Anion Gap 15 (12-20) BUN 20 H D (9-16) mg/dL Creatinine 1.67 H (0.5-1.4) mg/dL Estim Creat Clear Calc 39.5 Estimated GFR 33 Random Glucose 104 (60-115) mg/dL Calcium 9.7 (8.4-10.2) mg/dL Magnesium 2.1 (1.6-2.6) mg/dL Total Bilirubin 0.7 (0.0-1.0) mg/dL Direct Bilirubin 0.3 (0.0-0.5) mg/dL AST 24 (5-31) U/L ALT 13 (0-31) U/L Alkaline Phosphatase 67 (39-117) U/L Troponin I High Sens (<3.5-17.0) ng/L Total Protein 7.4 (6.5-8.0) g/dL Albumin 4.3 (3.5-5.0) g/dL Beta HCG, Quant < 2 mIU/mL COVID-19 ([facility]ANDANA) (Negative) COVID-19 Clin Com Blood Type Antibody Screen 10/04/20 10/04/20 10/04/20 Range/Units 11:39 11:42 12:08 WBC (4.8-10.8) X10*3/uL RBC (4.20-5.50) X10*6/uL Hgb (12.0-16.0) g/dl Hct (37-47) % MCV (80-98) fL MCH (27.0-33.0) pg MCHC (31.0-35.0) g/dl RDW (11.0-16.0) % Plt Count (160-400) X10*3/uL MPV (9.4-12.3) fL Immature Gran % (Auto) (0.0-0.4) % Neut % (Auto) (45-73) % Lymph % (Auto) (20-40) % [place] % (Auto) (2-11) % Eos % (Auto) (0-4) % Baso % (Auto) (0-2) % Lymph # (Auto) (1.2-4.9) X10*3/uL [place] # (Auto) (0.1-1.2) X10*3/uL Eos # (Auto) (0.0-0.4) X10*3/uL Baso # (Auto) (0.0-0.2) X10*3/uL Abs Immat Gran (auto) (0.00-0.03) X10*3/uL Absolute Neuts (auto) (2.0-8.3) X10*3/uL Absolute Nucleated RBC (0.0-0.012) X10*3/uL Nucleated RBC % (auto) (0.0-0.2) /100WBC PT (10.8-13.0) SEC INR (0.9-1.1) Sodium (135-145) mmol/L Potassium (3.3-5.1) mmol/l Chloride (96-108) mmol/L Carbon Dioxide (22-29) mmol/L Anion Gap (12-20) BUN (9-16) mg/dL Creatinine (0.5-1.4) mg/dL Estim Creat Clear Calc Estimated GFR Random Glucose (60-115) mg/dL Calcium (8.4-10.2) mg/dL Magnesium (1.6-2.6) mg/dL Total Bilirubin (0.0-1.0) mg/dL Direct Bilirubin (0.0-0.5) mg/dL AST (5-31) U/L ALT (0-31) U/L Alkaline Phosphatase (39-117) U/L Troponin I High Sens < 3.5 (<3.5-17.0) ng/L Total Protein (6.5-8.0) g/dL Albumin (3.5-5.0) g/dL Beta HCG, Quant mIU/mL COVID-19 (VANDANA) Negative (Negative) COVID-19 Clin Com See Note Blood Type A Positive Antibody Screen NEGATIVE ECG Data Attestation: I personally reviewed and interpreted this ECG as follows: Interpretation: Sinus heart rate of 45 AL QRS QT within normal limits is no acute ST segment elevation noted. Critical Care Time Critical Care Time Total Critical Care Time: 40 Attestation: I have personally provided 40 minutes of critical care time exclusive of time spent on separately billable procedures. Time includes review of lab data, radiology results, discussion with consultants, and monitoring for potential decompensation. Interventions were performed as documented above Discharge Plan Discharge Clinical Impression: EDS (Juan-Danlos syndrome), Syncope and collapse, Dehydration Prescriptions: No Action multivitamin Tablet 1 tab PO DAILY RF: 0 gabapentin 600 mg tablet 600 mg PO TID RF: 0 tizanidine 4 mg tablet 4 mg PO Q8H PRN (Reason: muscle spasm) RF: 0 clonazepam 1 mg tablet 0.5 tab PO TID PRN (Reason: Anxiety) RF: 0 oxycodone-acetaminophen 5-325 mg tablet 1 tab PO Q8H PRN (Reason: pain) RF: 0 dextroamphetamine-amphetamine 10 mg capsule,extended release 24hr 10 mg PO QAM RF: 0 dextroamphetamine-amphetamine 30 mg capsule,extended release 24hr 30 mg PO QAM RF: 0 buspirone 15 mg tablet 15 mg PO BID RF: 0 Trintellix 20 mg tablet 20 mg PO QAM RF: 0 Eliquis 2.5 mg tablet 2.5 mg PO BID RF: 0
--- NOTE | 2020-10-04 13:04 | CT_ITS ---
CTA CHEST CTA ABDOMEN PELVIS CLINICAL INFORMATION: Trauma, shortness of breath, on Eliquis. Recent PE. COMPARISON: Chest radiographs 10/04/2020, CT had 10/04/2020, bilateral leg venous ultrasound with Doppler 08/29/2020, CTA chest 08/29/2020. TECHNIQUE: Multidetector volumetric CT imaging of the chest, abdomen, and pelvis is obtained after the administration of 100 mL Ultravist 370 intravenous contrast without immediate adverse reactions. Additional reformatted 2D images and maximum intensity projection 3D MIP images are generated on the CT workstation. This CT examination was performed using dose optimization techniques as appropriate, variously including the following: *Automated exposure control *Adjustment of mA and/or kV according to patient size (this includes techniques or standardized protocols for targeted exams where dose is matched to indication/reason for exam; i.e. extremities or head) *Use of iterative reconstruction technique DLP: 569 mGy-cm (chest, abdomen, pelvis) FINDINGS: CT CHEST: PULMONARY ARTERIES: The right lower lobe posterior segmental pulmonary emboli noted on prior CT 08/29/2020 and no longer demonstrated. There is no acute or sequela from chronic pulmonary emboli demonstrated. MEDIASTINUM: No hilar or mediastinal adenopathy. The thoracic aorta is normal in caliber and shows no dissection. Normal branching aortic arch. No right ventricular strain. No pericardial effusion. LUNGS: Bibasilar dependent atelectasis. No lobar or segmental airspace consolidation or groundglass opacities. No pneumothorax. Central airways are clear. PLEURA: There is no pleural effusion. No pleural mass or thickening. AXILLA: No axillary adenopathy. Bilateral breast implants present. CT ABDOMEN/PELVIS: LIVER, GALLBLADDER, AND BILIARY TREE: The liver is normal in size and smooth in contour and parenchyma are homogeneous. No focal parenchymal abnormality. Gallbladder is distended to 3.8 cm in diameter. There are nonmineralized gallstones with nitrogen gas scattered in the lumen. No gallbladder wall thickening or pericholecystic inflammatory changes. Common duct unremarkable. PANCREAS: Unremarkable. SPLEEN: Unremarkable. ADRENAL GLANDS: Unremarkable. KIDNEYS AND URETERS: Kidneys enhance symmetrically and are normal in size and contour. No hydronephrosis or perinephric stranding. BLADDER: Unremarkable. GASTROINTESTINAL TRACT: No inflammatory changes in bowel or mesentery. No ascites or fluid collection. ABDOMINAL WALL: No significant hernia is appreciated. LYMPH NODES: No lymphadenopathy. VASCULAR: The abdominal aorta and iliac arteries are unremarkable. No aneurysmal enlargement or dissection. Major abdominal aortic branches unremarkable. PELVIC VISCERA: No adnexal mass appreciated. No pelvic ascites. There is some accentuated myometrial vascularity likely related to the contrast bolus. OSSEOUS STRUCTURES: No acute bony abnormality. CT/CT angio abdomen pelvis IMPRESSION: 1. No thoracic or abdominal aortic aneurysm or dissection. 2. Recent right lower lobe segmental pulmonary embolism resolved. No acute PE. 3. Distended gallbladder with nonmineralized gallstones. No wall thickening or biliary ductal dilatation.
[2020-10-04] MEDS: iohexoL 350 MG/ML 100 ML INFUS..BTL IV (13:58)
[2020-10-04] MEDS: 0.9 % Sodium Chloride 500 ML 999 ML IV (14:16)
[2020-10-04] MEDS: 0.9 % Sodium Chloride 1,000 ML 999 ML IV (14:17)
[2020-10-04 15:19] LABS: Thyroid Stimulating Hormone 2.27 uIU/mL (0.32-4.0)
[2020-10-04 16:19] LABS: Glucose Urine UA NEG (NEG); Leukocyte Esterase Urine TRACE (NEG); Nitrite Urine NEG (NEG); Specific Gravity - Urine <= 1.005 (1.005-1.025); Urine Blood 3+ (NEG); Urine Ketones NEG (NEG); Urine Protein 1+ MG/DL (NEG-TRACE)
[2020-10-04 16:38] LABS: Appearance Urine TURBID; Color Urine RED
[2020-10-04 16:42] LABS: WBC Urine 0-2 /HPF (0-4)
[2020-10-04 16:43] LABS: Squamous Epithelial Cell Urine TRACE /LPF
[2020-10-04 16:47] LABS: Amphetamine Screen Urine Not Detected (Not Detect); Barbiturates, Urine Not Detected (Not Detect); Benzodiazepines Screen Urine Not Detected (Not Detect); Cannabinoid Screen Urine POSITIVE (Not Detect); Cocaine Screen Urine Not Detected (Not Detect); Opiate Screen Urine Not Detected (Not Detect); Phencyclidine Screen Urine Not Detected (Not Detect)
--- NOTE | 2020-10-04 17:01 | P.HPHOSP_ITS ---
History of Present Illness Date of Service: 10/04/20 Chief Complaint: Dizziness, vaginal bleeding, syncope A 45 years old lady with PMH of EDS hypermotility syndrome, recent PE on Eliquis among others who presented to the hospital for increased dizziness and shortness of breath with episode of syncope. The patient reports that she feels dizzy on and of during regular days but for the last 2 days she start having her menstrual per the iod For the 1st time while on blood thinners and noticed significant amount of bleeding using 6-8 pads the a day. She noticed exertional dyspnea and shortness of breath and she was not able to walk for any short distance because of dizziness and dyspnea. She denies any chest pain but reported feeling palpitation and O2 sat heart rate was running around 120 with exertion. She was well walking upstairs when she lost her conscious and fell on the stairs hitting a her face but seems like she never lost her conscious. In the emergency CTA of chest abdomen pelvis were negative for any acute findings. Showing previous PE to be resolved. Blood pressure was noted to be significantly low and admitted for further evaluation and treatment Review of Systems Review of Systems: No fever, chills but reports generalized weakness and lethargy No chest pain, palpitation Dyspnea on exertion but no coughing No abdominal pain, nausea or vomiting No urinary symptoms No any rash or wounds [facility] Medical History EDS (Juan-Danlos syndrome) Oral contraceptive use Subchondral sclerosis Subchondral sclerosis Family History Paternal Aunt Breast cancer Father Diabetes High cholesterol HTN (hypertension) Maternal Uncle Stroke Maternal Grandfather Emphysema lung Lung cancer Maternal Grandmother Asthma Son Asthma Surgical History H/O knee surgery H/O shoulder surgery Social History Household Members: Children Housing: Apartment Alcohol intake: never Smoking Status: Never smoker Second Hand Smoke Exposure: No Use of substances other than those prescribed or required for medical reasons: No Advance Directives: No Advance Directives Information Provided: No service: No Current occupational status: unemployed Meds Allergies Allergy/AdvReac Type Severity Reaction Status Date / Time erythromycin base Allergy Severe PANCREATITI Verified 09/21/20 11:08 [ERYTHROMYCIN BASE] S Penicillins [PCN] Allergy Severe HIVES Verified 09/21/20 11:08 Home Medications Medication Instructions Recorded Confirmed Type Trintellix 20 mg PO QAM 08/29/20 10/04/20 History buspirone 15 mg PO BID 08/29/20 10/04/20 History clonazepam 0.5 tab PO TID PRN 08/29/20 10/04/20 History dextroamphetamine-amphetamine 10 mg PO QAM 08/29/20 10/04/20 History dextroamphetamine-amphetamine 30 mg PO QAM 08/29/20 10/04/20 History gabapentin 600 mg PO TID 08/29/20 10/04/20 History oxycodone-acetaminophen 1 tab PO Q8H PRN 08/29/20 10/04/20 History tizanidine 4 mg PO Q8H PRN 08/29/20 10/04/20 History apixaban 2.5 mg tablet 2.5 mg PO BID 09/20/20 10/04/20 History multivitamin 1 tab PO DAILY 10/04/20 10/04/20 History Physical Exam Vital Signs and Narrative: Vital Signs: Last Vital Signs Temp 97.8 F 10/04/20 11:19 Pulse 46 L 10/04/20 15:19 Resp 18 10/04/20 15:19 BP 95/54 L 10/04/20 15:19 Pulse Ox 99 10/04/20 15:19 Body Mass Index 25.7 Constitutional : Alert, oriented, not in distress Neck : Normal inspection, Supple Cardiovascular : RRR, S1 S2, no lower extremity edema Respiratory : Good bilateral air entry, no crackles, wheezes or rhonchi Gastrointestinal: soft, lax, Normal bowel sounds, Non tender Skin : Warm/Dry, No rash Neurological : Alert & oriented x3, No focal deficit Results Labs CBC and Chem 7: 10/04/20 11:39 10/04/20 11:39 Labs: Laboratory Results - last 24 hr 10/04/20 10/04/20 10/04/20 11:39 11:39 11:39 MCV 88.6 MCH 28.1 MCHC 31.7 RDW 12.8 Plt Count 334 MPV 9.6 Immature Gran % (Auto) 0.4 Neut % (Auto) 63.3 Lymph % (Auto) 24.8 [place] % (Auto) 8.9 Eos % (Auto) 2.3 Baso % (Auto) 0.3 Lymph # (Auto) 1.7 [place] # (Auto) 0.6 Eos # (Auto) 0.2 Baso # (Auto) 0.0 Abs Immat Gran (auto) 0.03 Absolute Neuts (auto) 4.4 Absolute Nucleated RBC 0.000 Nucleated RBC % (auto) 0.0 PT 16.7 H INR 1.4 H Anion Gap 15 Estim Creat Clear Calc 39.5 Estimated GFR 33 Random Glucose 104 Calcium 9.7 Magnesium 2.1 Total Bilirubin 0.7 Direct Bilirubin 0.3 AST 24 ALT 13 Alkaline Phosphatase 67 Troponin I High Sens Total Protein 7.4 Albumin 4.3 TSH 2.27 Beta HCG, Quant < 2 Urine Color Urine Appearance Urine pH Ur Specific [place] Urine Protein Urine Glucose (UA) Urine Ketones Urine Blood Urine Nitrite Ur Leukocyte Esterase Urine RBC Urine WBC Ur Squamous Epith Cells Urine Bacteria Urine Opiates Screen Ur Barbiturates Screen Ur Phencyclidine Scrn Ur Amphetamines Screen U Benzodiazepines Scrn Urine Cocaine Screen U Marijuana (THC) Screen COVID-19 ([facility]ANDANA) COVID-19 Clin Com Blood Type Antibody Screen Crossmatch 10/04/20 10/04/20 10/04/20 11:39 11:42 12:08 MCV MCH MCHC RDW Plt Count MPV Immature Gran % (Auto) Neut % (Auto) Lymph % (Auto) [place] % (Auto) Eos % (Auto) Baso % (Auto) Lymph # (Auto) [place] # (Auto) Eos # (Auto) Baso # (Auto) Abs Immat Gran (auto) Absolute Neuts (auto) Absolute Nucleated RBC Nucleated RBC % (auto) PT INR Anion Gap Estim Creat Clear Calc Estimated GFR Random Glucose Calcium Magnesium Total Bilirubin Direct Bilirubin AST ALT Alkaline Phosphatase Troponin I High Sens < 3.5 Total Protein Albumin TSH Beta HCG, Quant Urine Color Urine Appearance Urine pH Ur Specific [place] Urine Protein Urine Glucose (UA) Urine Ketones Urine Blood Urine Nitrite Ur Leukocyte Esterase Urine RBC Urine WBC Ur Squamous Epith Cells Urine Bacteria Urine Opiates Screen Ur Barbiturates Screen Ur Phencyclidine Scrn Ur Amphetamines Screen U Benzodiazepines Scrn Urine Cocaine Screen U Marijuana (THC) Screen COVID-19 (VANDANA) Negative COVID-19 Clin Com See Note Blood Type A Positive Antibody Screen NEGATIVE Crossmatch See Detail 10/04/20 10/04/20 16:07 16:07 MCV MCH MCHC RDW Plt Count MPV Immature Gran % (Auto) Neut % (Auto) Lymph % (Auto) [place] % (Auto) Eos % (Auto) Baso % (Auto) Lymph # (Auto) [place] # (Auto) Eos # (Auto) Baso # (Auto) Abs Immat Gran (auto) Absolute Neuts (auto) Absolute Nucleated RBC Nucleated RBC % (auto) PT INR Anion Gap Estim Creat Clear Calc Estimated GFR Random Glucose Calcium Magnesium Total Bilirubin Direct Bilirubin AST ALT Alkaline Phosphatase Troponin I High Sens Total Protein Albumin TSH Beta HCG, Quant Urine Color RED Urine Appearance TURBID Urine pH 5.0 Ur Specific [place] <= 1.005 Urine Protein 1+ H Urine Glucose (UA) NEG Urine Ketones NEG Urine Blood 3+ H Urine Nitrite NEG Ur Leukocyte Esterase TRACE H Urine RBC 76-150 H Urine WBC 0-2 Ur Squamous Epith Cells TRACE Urine Bacteria NONE Urine Opiates Screen Not Detected Ur Barbiturates Screen Not Detected Ur Phencyclidine Scrn Not Detected Ur Amphetamines Screen Not Detected U Benzodiazepines Scrn Not Detected Urine Cocaine Screen Not Detected U Marijuana (THC) Screen POSITIVE H COVID-19 (VANDANA) COVID-19 Clin Com Blood Type Antibody Screen Crossmatch Imaging Radiologist's Impressions: Impressions Chest X-Ray 10/04/20 11:14 IMPRESSION: Unremarkable examination. Head CT 10/04/20 11:14 IMPRESSION: No acute intracranial abnormality. Abdomen/Pelvis CTA 10/04/20 13:04 IMPRESSION: 1. No thoracic or abdominal aortic aneurysm or dissection. 2. Recent right lower lobe segmental pulmonary embolism resolved. No acute PE. 3. Distended gallbladder with nonmineralized gallstones. No wall thickening or biliary ductal dilatation. Chest CTA 10/04/20 13:04 IMPRESSION: 1. No thoracic or abdominal aortic aneurysm or dissection. 2. Recent right lower lobe segmental pulmonary embolism resolved. No acute PE. 3. Distended gallbladder with nonmineralized gallstones. No wall thickening or biliary ductal dilatation. Assessment and Plan (1) Syncope and collapse: Status: Acute (2) Acute kidney injury (BISI) with acute tubular necrosis (ATN): Status: Acute (3) Dyspnea: Status: Acute (4) Blood loss anemia: Status: Acute A 45 years old lady with PMH of EDS hypermotility syndrome, recent PE on Eliquis among others who presented to the hospital for increased dizziness and shortness of breath with episode of syncope. Hypotension Unclear etiology, no clear underlying infection, mildly dehydrated to give IV fluid 1 now Monitor blood pressure and check orthostatic in the morning Blood-loss anemia Reporting significant amount of blood loss Hemoglobin remained stable as the blood loss acute but she has symptoms with dizziness, shortness of breath To give a unit of blood for the time being Monitor H&H To get gynecology evaluation Acute kidney injury Creatinine in double from baseline to 1.7 Could be ATN secondary to dehydration, prerenal To give IV fluid and monitor BMP Syncope and collapse Has recent presentation with similar complain, cardiac workup was negative at that point Could be related to postural hypotension, acute blood loss anemia The give blood transfusion To give IV fluid To check orthostatic pressure in the morning Given telemetry overnight Might need further evaluation and midodrine Recent PE Hold Eliquis for severe menstrual bleed DVT PPX Use SCDs for
[2020-10-04] MEDS: Gabapentin 300 MG CAPSULE 600 MG PO (17:59)
[2020-10-04] MEDS: busPIRone HCl 10 MG TABLET 15 MG PO (17:59)
[2020-10-04] MEDS: TiZANidine HCL 4 MG TABLET PO ×2 (18:00→22:42)
[2020-10-04] MEDS: oxyCODONE HCl Immed Release 5 MG TABLET PO (18:00)
[2020-10-04] MEDS: 0.9 % Sodium Chloride 1,000 ML 100 ML IVCONT (20:00)
[2020-10-04] MEDS: Lactated Ringers 1,000 ML 999 ML IVCONT (21:30)
[2020-10-04] MEDS: busPIRone HCl 5 MG TABLET 15 MG PO (22:21)
[2020-10-04] MEDS: Gabapentin 600 MG TABLET PO (22:21)
[2020-10-04] MEDS: clonazePAM 0.5 MG TABLET PO (22:43)
[2020-10-04] MEDS: Lactated Ringers 500 ML 999 ML IVCONT (23:13)
[2020-10-05] VITALS (10 sets, daily range): BP systolic 100–137; BP diastolic 55–75; PULSE 48–72; RESP 16–20; TEMP 35.8–36.8; O2SAT 98–100; BMI 24.1
[2020-10-05] MEDS: oxyCODONE HCl Immed Release 5 MG TABLET PO ×4 (00:23→21:21)
[2020-10-05] MEDS: 0.9 % Sodium Chloride 1,000 ML 100 ML IVCONT (00:26)
[2020-10-05] MEDS: 0.9 % Sodium Chloride Flush 3 ML SYRINGE IVFLUSH ×4 (01:17→20:01)
[2020-10-05 06:31] LABS: MANUAL DIFF FLAG NO
[2020-10-05 06:57] LABS: Basophils Percent Auto 0.2 % (0-2); Eosinophils Absolute Auto 0.2 X10*3/uL (0.0-0.4); Eosinophils Percent Auto 4.5 % (0-4); Hematocrit 33.1 % (37-47); Hemoglobin 10.7 g/dl (12.0-16.0); Imm Gran Abs Auto 0.01 X10*3/uL (0.00-0.03); Imm Gran Pct Auto 0.2 % (0.0-0.4); Lymphocytes Absolute Auto 1.7 X10*3/uL (1.2-4.9); Lymphocytes Percent Auto 37.4 % (20-40); Mean Corpuscular HGB Conc 32.3 g/dl (31.0-35.0); Mean Corpuscular Hemoglobin 28.5 pg (27.0-33.0); Mean Platelet Volume 10.1 fL (9.4-12.3); Monocytes Absolute Auto 0.5 X10*3/uL (0.1-1.2); Neutrophils Absolute Auto 2.1 X10*3/uL (2.0-8.3); Neutrophils Percent Auto 45.7 % (45-73); Platelet Count 244 X10*3/uL (160-400); Red Blood Count 3.76 X10*6/uL (4.20-5.50); Red Cell Distribution Width 12.9 % (11.0-16.0); White Blood Count 4.5 X10*3/uL (4.8-10.8)
[2020-10-05 06:59] LABS: Prothrombin Time 12.1 SEC (10.8-13.0)
[2020-10-05 07:23] LABS: Thyroid Stimulating Hormone 0.52 uIU/mL (0.32-4.0)
[2020-10-05 07:26] LABS: Anion Gap 11 (12-20); Blood Urea Nitrogen 17 mg/dL (9-16); Carbon Dioxide 23 mmol/L (22-29); Chloride 110 mmol/L (96-108); Creatinine Clr Calc Pharmacy 68.2; Estimated Glomerular Filt Rate > 60; Glucose Random 100 mg/dL (60-115); Potassium 4.4 mmol/l (3.3-5.1); Sodium 140 mmol/L (135-145)
[2020-10-05 07:42] LABS: Calcium 7.6 mg/dL (8.4-10.2)
[2020-10-05] MEDS: Vortioxetine Hydrobromide 20 MG TABLET PO (07:52)
[2020-10-05] MEDS: Gabapentin 600 MG TABLET PO ×3 (07:52→20:01)
[2020-10-05] MEDS: Multivitamin TABLET 1 TAB PO (07:52)
[2020-10-05] MEDS: busPIRone HCl 5 MG TABLET 15 MG PO ×2 (07:53→20:01)
[2020-10-05] MEDS: TiZANidine HCL 4 MG TABLET PO ×3 (07:57→23:15)
--- NOTE | 2020-10-05 08:24 | MHC.CM.PN ---
Female 45 DX Dizziness BISI Blood loss anemia. Pt lives with family. She requires assistance ADLs and uses a walker. HCP info and document provided, copy in chart. Referral [facility] res[facility] of [employer] [facility] and OT. DP resume services with [employer] [facility] transport. CM will follow.
--- NOTE | 2020-10-05 11:54 | HO.PM.IMPN ---
Subjective Subjective Date of Service: 10/05/20 Interval History: the patient was seen and evaluated this morning Laying in bed, feels comfortable Denies any fever, chills or shortness of breath but still feels dizzy Upon standing the bleeding decreased significantly The No reported other overnight events. Systemic review: No fever, chills she still feeling weakness No chest pain, palpitation No shortness of breath or coughing No abdominal pain, nausea or vomiting Vaginal spotting this morning No any rash or wounds The Physical Exam Vital Signs: Vital Signs: Last Vital Signs Temp 98.2 F 10/05/20 11:34 Pulse 60 10/05/20 11:38 Resp 18 10/05/20 11:34 BP 111/65 10/05/20 11:38 Pulse Ox 100 10/05/20 11:38 Body Mass Index 24.1 Constitutional : Alert, oriented, not in distress Neck : Normal inspection, Supple Cardiovascular : RRR, S1 S2, no lower extremity edema Respiratory : Good bilateral air entry, no crackles, wheezes or rhonchi Gastrointestinal: soft, lax, Normal bowel sounds, Non tender Skin : Warm/Dry, No rash Neurological : Alert & oriented x3, No focal deficit Objective Data Current Medications Generic Name Dose Route Start Last Admin Trade Name Freq PRN Reason Stop Dose Admin Acetaminophen 650 mg 10/04/20 18:27 Acetaminophen 325 Mg Tablet PO Q6H PRN Pain, Mild (Pain Scale 1-3) Apixaban 2.5 mg 10/05/20 21:00 Apixaban 2.5 Mg Tablet PO BID VERONICA Buspirone HCl 15 mg 10/04/20 21:00 10/05/20 07:53 Buspirone Hcl 5 Mg Tablet PO 15 mg BID VEROINCA Administration Clonazepam 0.5 mg 10/04/20 19:08 10/04/20 22:43 Clonazepam 0.5 Mg Tablet PO 0.5 mg TID PRN Administration Anxiety Gabapentin 600 mg 10/04/20 21:00 10/05/20 07:52 Gabapentin 600 Mg Tablet PO 600 mg TID VERONICA Administration Multivitamins/Vitamin C 1 tab 10/05/20 09:00 10/05/20 07:52 Multivitamin Tablet PO 1 tab DAILY VERONICA Administration Non-Formulary Medication 30 each 10/05/20 09:00 Non-Formulary Medication PO DAILY VERONICA Ondansetron HCl 4 mg 10/04/20 18:27 Ondansetron Hcl 4 Mg/2 Ml Vial IVPUSH Q8H PRN Nausea and Vomiting Oxycodone HCl 5 mg 10/04/20 16:55 10/05/20 07:57 Oxycodone Hcl Immed Release 5 Mg Tablet PO 5 mg Q6H PRN Administration Pain, Severe (Pain Scale 7-10) Pharmacy Consult 1 each 10/04/20 14:44 Consult Rx Perform Med Rec MISCELLANE ONCE PRN Consult order Sodium Chloride 3 ml 10/05/20 00:00 10/05/20 07:53 0.9 % Sodium Chloride Flush 3 Ml Syringe IVFLUSH 3 ml QSHIFT VERONICA Administration Tizanidine HCl 4 mg 10/04/20 18:27 10/05/20 07:57 Tizanidine Hcl 4 Mg Tablet PO 4 mg Q8H PRN Administration muscle spasm Vortioxetine 20 mg 10/05/20 09:00 10/05/20 07:52 Vortioxetine Hydrobromide 20 Mg Tablet PO 20 mg DAILY VERONICA Administration Labs CBC & Chem 7: 10/05/20 05:33 10/05/20 05:33 Microbiology Microbiology Results: Microbiology 10/04/20 16:00 Urine clean catch - Clean Catch Midstream Urine Culture - Preliminary No growth to date. Assessment and Plan (1) Syncope and collapse: Status: Acute (2) Acute kidney injury (BISI) with acute tubular necrosis (ATN): Status: Acute (3) Dyspnea: Status: Acute (4) Blood loss anemia: Status: Acute Assessment and Plan: A 45 years old lady with PMH of EDS hypermotility syndrome, recent PE on Eliquis among others who presented to the hospital for increased dizziness and shortness of breath with episode of syncope. Hypotension Seems to be her baseline with unclear etiology, could be related to ED S Blood pressure better controlled today, to hold IVF check orthostatic in the morning Blood-loss anemia Bleeding decreased Hemoglobin dropped to 10 even after 1 unit blood transfusion Hold on further transfusion for today Monitor H&H Vaginal Bleeding Bleeding decreased today Gynecology input appreciated, to do biopsy as outpatient To restart Eliquis and monitor for worsening bleeding Acute kidney injury Creatinine improved almost to baseline Likely secondary to dehydration, prerenal Hold IVF monitor BMP Syncope and collapse Has recent presentation with similar complain, cardiac workup was negative at that point Could be related to postural hypotension, acute blood loss anemia Received IVF and blood transfusion Monitor orthostatic pressure Given telemetry overnight Might need further evaluation and midodrine Recent PE Hold Eliquis for severe menstrual bleed DVT PPX Eliquis blood in, depression the (5) Vaginal bleeding: Status: Acute (6) Pulmonary embolism: Status: Acute
[2020-10-05] MEDS: Acetaminophen 325 MG TABLET 650 MG PO ×2 (11:58→20:01)
--- NOTE | 2020-10-05 12:05 | PM.GYNCN ---
[facility] - CN: HPI Data of Consult Consult date: 10/05/20 Requesting Physician: Parth Mo MD Primary Care Provider: Frances Gaytan DO Consult Narrative Narrative: Deb Malcolm is a 45 year old female who presented to the emergency room an episode of unconsciousness. Patient has been having heavy vaginal bleeding since you she was taken off the control pills because of the diagnosis of being in mid August and since then the patient has been on Eliquis. The patient has a long-term history of menorrhagia that has been controlled on control pills for the last few years. Since the patient was taken off the control pills menorrhagia recurred and this was the 1st episode the patient she had since she was started on Eliquis. The patient was admitted for observation Eliquis was put on hold and her bleeding stopped since yesterday repeat hematocrit dropped from 35 on admission to 33 this morning. TSH, hCG was negative. 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 - Review of Systems Review of Systems ROS Unobtainable: All systems reviewed & are unremarkable except as noted in HPI and below Cardiovascular: Denies Palpatations, Loss of consciousness and Chest pain Respiratory: Denies Cough, Wheezing and Shortness of breath Musculoskeletal: Denies Low back pain Gastrointestinal: Denies Heartburn, Constipation, Diarrhea, Nausea and Vomiting Genitourinary: Denies Pain with urination, Burning with urination and Urinary frequency Neurological: Denies Migranes Psychological: Denies Depression OB PMFSH Past Medical History Medical History EDS (Juan-Danlos syndrome) Oral contraceptive use Subchondral sclerosis Subchondral sclerosis Family History Family History Paternal Aunt Breast cancer Father Diabetes High cholesterol HTN (hypertension) Maternal Uncle Stroke Maternal Grandfather Emphysema lung Lung cancer Maternal Grandmother Asthma Son Asthma Surgical History Surgical History H/O knee surgery H/O shoulder surgery Social History Social History Household Members: Children Housing: Apartment Do you presently have visiting nurse or other home services: Yes (home health aid for housekeeping) Alcohol intake: never Smoking Status: Never smoker Second Hand Smoke Exposure: No Use of substances other than those prescribed or required for medical reasons: No Have you been hit, kicked, punched, or otherwise hurt by someone within the past year? If so, by whom?: No Do you feel safe in your current relationship?: No Current Relationship Is there a partner from a previous relationship who is making you feel unsafe now?: No Are you made to feel afraid or neglected: No Advance Directives: No Advance Directives Information Provided: No Do you have thoughts of harming others: None Do you have a plan to hurt others: No Plan Recently lost weight without trying: No service: No Current occupational status: unemployed Meds Allergies Allergy/AdvReac Type Severity Reaction Status Date / Time erythromycin base Allergy Severe PANCREATITI Verified 09/21/20 11:08 [ERYTHROMYCIN BASE] S Penicillins [PCN] Allergy Severe HIVES Verified 09/21/20 11:08 Home Medications Medication Instructions Recorded Confirmed Type Trintellix 20 mg PO QAM 08/29/20 10/04/20 History buspirone 15 mg PO BID 08/29/20 10/04/20 History clonazepam 0.5 tab PO TID PRN 08/29/20 10/04/20 History dextroamphetamine-amphetamine 10 mg PO QAM 08/29/20 10/04/20 History dextroamphetamine-amphetamine 30 mg PO QAM 08/29/20 10/04/20 History gabapentin 600 mg PO TID 08/29/20 10/04/20 History oxycodone-acetaminophen 1 tab PO Q8H PRN 08/29/20 10/04/20 History tizanidine 4 mg PO Q8H PRN 08/29/20 10/04/20 History apixaban 2.5 mg tablet 2.5 mg PO BID 09/20/20 10/04/20 History multivitamin 1 tab PO DAILY 10/04/20 10/04/20 History [facility] Physical Exam Vitals Vital signs: Temp Pulse Resp BP Pulse Ox 98.2 F 60 18 111/65 100 10/05/20 11:34 10/05/20 11:38 10/05/20 11:34 10/05/20 11:38 10/05/20 11:38 Body Mass Index 24.1 Constitutional General Appearance: Healthy appearing, Well-nourished and Well-developed Psychiatric Mood and Affect: active and alert, normal mood and normal affect Skin Appearance: No rashes and No lesions Lungs Respiratory Effort: No intercostal retractions Auscultation: Clear to auscultation Cardiovascular Auscultation: RRR Abdomen Auscultation/Inspection/Palpation: Normal bowel sounds, Soft, Non-distended and No tenderness Female Genitalia (Pelvic) Bladder/Urethra: Normal meatus Vulva: No lesions Vagina: No erythema and No lesions Cervix: Grossly normal and No discharge Uterus: Normal size Additional Comments: No blood per vagina no evidence of any vaginal bleeding [facility] - Results Labs CBC & Chem 7: 10/05/20 05:33 10/05/20 05:33 Labs: Short CBC 10/05/20 Range/Units 05:33 WBC 4.5 L (4.8-10.8) X10*3/uL Hgb 10.7 L (12.0-16.0) g/dl Hct 33.1 L (37-47) % Plt Count 244 D (160-400) X10*3/uL BMP 10/04/20 10/05/20 11:39 05:33 Sodium 136 140 Potassium 4.7 4.4 Chloride 98 110 H Carbon Dioxide 28 23 BUN 20 H D 17 H Creatinine 1.67 H 0.88 Calcium 9.7 7.6 L D Liver Function 10/04/20 Range/Units 11:39 Total Bilirubin 0.7 (0.0-1.0) mg/dL Direct Bilirubin 0.3 (0.0-0.5) mg/dL AST 24 (5-31) U/L ALT 13 (0-31) U/L Alkaline Phosphatase 67 (39-117) U/L Albumin 4.3 (3.5-5.0) g/dL Urine 10/04/20 Range/Units 16:07 Urine Color RED Urine Appearance TURBID Urine pH 5.0 (5.0-8.0) Ur Specific [place] <= 1.005 (1.005-1.025) Urine Protein 1+ H (NEG-TRACE) MG/DL Urine Glucose (UA) NEG (NEG) MG/DL Antibody Screen Antibody Screen NEGATIVE 10/04/20 12:08 Assessment and Plan (1) Menorrhagia: Status: Acute Discussed with the patient differential diagnosis menorrhagia including but not limited to thyroid disorders, accidents of which both were ruled, structural abnormalities in the uterus and adnexa which were both were ruled out by a normal CT, endometrial pathology including hyperplasia cancer for which endometrial biopsy is recommended. Also discussed the patient options treatment taking into consideration contraindication for estrogen treatment, including p.o. progesterone, progesterone IUD, endometrial ablation. All the pros and cons, risks and benefits of each were discussed with the patient and the patient elected to go ahead with the progesterone IUD. Will plan on endometrial biopsy on Thursday and progesterone IUD insertion. I Recommend to restart the pt on Eliquis ;if bleeding starts and it is [id number] will start the patient on p.o. Provera 10 mg q.d. till IUD insertion, if the bleeding is heavy & the patient is changing a pad every hour will proceed with D&C and emergent endometrial ablation. If IUD progesterone does not work within 3 months will consider endometrial ablation if both optionso f treatment fail the next step is a hysterectomy which we should try to avoid if possible given the patient's history of PE Eliquis. All questions answered, the patient verbalized understanding and agreed with the plan. Discussed the management with Dr. Love
[2020-10-05] MEDS: clonazePAM 0.5 MG TABLET PO ×2 (13:33→21:21)
[2020-10-05] MEDS: Apixaban 2.5 MG TABLET PO (20:01)
[2020-10-06] VITALS (11 sets, daily range): BP systolic 97–147; BP diastolic 56–87; PULSE 46–65; RESP 16–18; TEMP 36.6–37.1; O2SAT 97–100
[2020-10-06] MEDS: diphenhydrAMINE HCL 50 MG/ML VIAL 25 MG IVPUSH (00:35)
[2020-10-06] MEDS: diphenhydrAMINE HCL 50 MG/ML VIAL 12.5 MG IVPUSH ×3 (06:24→23:35)
[2020-10-06] MEDS: oxyCODONE HCl Immed Release 5 MG TABLET PO ×3 (06:24→20:21)
[2020-10-06 06:58] LABS: Hemoglobin 11.2 g/dl (12.0-16.0); Mean Corpuscular Hemoglobin 28.2 pg (27.0-33.0); Mean Corpuscular Volume 88.2 fL (80-98); Mean Platelet Volume 10.3 fL (9.4-12.3); Platelet Count 250 X10*3/uL (160-400); Red Blood Count 3.97 X10*6/uL (4.20-5.50); White Blood Count 5.3 X10*3/uL (4.8-10.8)
[2020-10-06 07:28] LABS: Anion Gap 12 (12-20); Blood Urea Nitrogen 10 mg/dL (9-16); Carbon Dioxide 25 mmol/L (22-29); Chloride 108 mmol/L (96-108); Creatinine Clr Calc Pharmacy 88.2; Estimated Glomerular Filt Rate > 60; Glucose Random 78 mg/dL (60-115); Potassium 3.6 mmol/l (3.3-5.1); Sodium 141 mmol/L (135-145)
[2020-10-06] MEDS: Gabapentin 600 MG TABLET PO ×3 (07:47→20:20)
[2020-10-06] MEDS: Vortioxetine Hydrobromide 20 MG TABLET PO (07:47)
[2020-10-06] MEDS: TiZANidine HCL 4 MG TABLET PO ×3 (07:47→23:30)
[2020-10-06] MEDS: Apixaban 2.5 MG TABLET PO ×2 (07:48→20:20)
[2020-10-06] MEDS: Multivitamin TABLET 1 TAB PO (07:48)
[2020-10-06] MEDS: busPIRone HCl 5 MG TABLET 15 MG PO ×2 (07:48→20:20)
[2020-10-06] MEDS: 0.9 % Sodium Chloride Flush 3 ML SYRINGE IVFLUSH ×3 (07:48→20:21)
--- NOTE | 2020-10-06 10:51 | MHC.CM.PN ---
pt to be dcd today request sent to for a script for a wheeled waLKER
[2020-10-06] MEDS: Acetaminophen 325 MG TABLET 650 MG PO ×2 (13:58→23:34)
[2020-10-06] MEDS: clonazePAM 0.5 MG TABLET PO ×2 (14:02→23:30)
--- NOTE | 2020-10-06 15:22 | HO.PM.IMPN ---
Subjective Subjective Date of Service: 10/06/20 Interval History: Interval History: the patient was seen and evaluated this morning Laying in bed, feels comfortable Denies any fever, chills or shortness of breath but still feels headache, more tired with reported left tremor the bleeding decreased significantly The No reported other overnight events. Systemic review: No fever, chills she still feeling weakness No chest pain, palpitation No shortness of breath or coughing No abdominal pain, nausea or vomiting Vaginal spotting this morning No any rash or wounds Physical Exam Vital Signs: Vital Signs: Last Vital Signs Temp 98.5 F 10/06/20 11:18 Pulse 65 10/06/20 11:18 Resp 18 10/06/20 11:18 BP 131/68 10/06/20 15:17 Pulse Ox 98 10/06/20 11:18 Body Mass Index 24.1 Constitutional : Alert, oriented, not in distress Neck : Normal inspection, Supple Cardiovascular : RRR, S1 S2, no lower extremity edema Respiratory : Good bilateral air entry, no crackles, wheezes or rhonchi Gastrointestinal: soft, lax, Normal bowel sounds, Non tender Skin : Warm/Dry, No rash Neurological : Alert & oriented x3, No focal deficit, left hand tremor which is not typical for resting or essential tremor, totally normal when the patient is distracted, likely anxiety related Objective Data Current Medications Generic Name Dose Route Start Last Admin Trade Name Freq PRN Reason Stop Dose Admin Acetaminophen 650 mg 10/04/20 18:27 10/06/20 13:58 Acetaminophen 325 Mg Tablet PO 650 mg Q6H PRN Administration Pain, Mild (Pain Scale 1-3) Apixaban 2.5 mg 10/05/20 21:00 10/06/20 07:48 Apixaban 2.5 Mg Tablet PO 2.5 mg BID VERONICA Administration Buspirone HCl 15 mg 10/04/20 21:00 10/06/20 07:48 Buspirone Hcl 5 Mg Tablet PO 15 mg BID VERONICA Administration Clonazepam 0.5 mg 10/04/20 19:08 10/06/20 14:02 Clonazepam 0.5 Mg Tablet PO 0.5 mg TID PRN Administration Anxiety Diphenhydramine HCl 12.5 mg 10/06/20 06:02 10/06/20 13:59 Diphenhydramine Hcl 50 Mg/Ml Vial IVPUSH 12.5 mg Q8H PRN Administration Itching Gabapentin 600 mg 10/04/20 21:00 10/06/20 13:59 Gabapentin 600 Mg Tablet PO 600 mg TID VERONICA Administration Multivitamins/Vitamin C 1 tab 10/05/20 09:00 10/06/20 07:48 Multivitamin Tablet PO 1 tab DAILY VERONICA Administration Non-Formulary Medication 30 each 10/05/20 09:00 Non-Formulary Medication PO DAILY VERONICA Ondansetron HCl 4 mg 10/04/20 18:27 Ondansetron Hcl 4 Mg/2 Ml Vial IVPUSH Q8H PRN Nausea and Vomiting Oxycodone HCl 5 mg 10/04/20 16:55 10/06/20 11:55 Oxycodone Hcl Immed Release 5 Mg Tablet PO 5 mg Q6H PRN Administration Pain, Severe (Pain Scale 7-10) Pharmacy Consult 1 each 10/04/20 14:44 Consult Rx Perform Med Rec MISCELLANE ONCE PRN Consult order Sodium Chloride 3 ml 10/05/20 00:00 10/06/20 14:02 0.9 % Sodium Chloride Flush 3 Ml Syringe IVFLUSH 3 ml QSHIFT VERONICA Administration Tizanidine HCl 4 mg 10/04/20 18:27 10/06/20 07:47 Tizanidine Hcl 4 Mg Tablet PO 4 mg Q8H PRN Administration muscle spasm Vortioxetine 20 mg 10/05/20 09:00 10/06/20 07:47 Vortioxetine Hydrobromide 20 Mg Tablet PO 20 mg DAILY VERONICA Administration Labs CBC & Chem 7: 10/06/20 05:11 10/06/20 05:11 Microbiology Microbiology Results: Microbiology 10/04/20 16:00 Urine clean catch - Clean Catch Midstream Urine Culture - Final No growth. Assessment and Plan (1) Syncope and collapse: Status: Acute (2) Acute kidney injury (BISI) with acute tubular necrosis (ATN): Status: Acute (3) Dyspnea: Status: Acute (4) Blood loss anemia: Status: Acute Assessment and Plan: A 45 years old lady with PMH of EDS hypermotility syndrome, recent PE on Eliquis among others who presented to the hospital for increased dizziness and shortness of breath with episode of syncope. Hypotension Seems to be her baseline with unclear etiology, dehydration , EDS? Blood pressure dropped to 90s over 40s this morning Improved with oral intake, to hold on IV fluids for now Encourage oral intake To use midodrine if continue to drop her blood pressure recheck orthostatic in the morning Acute Blood-loss anemia No more bleeding reported Hemoglobin stable after 1 unit blood transfusion Hold on further transfusion Monitor H&H Vaginal Bleeding Bleeding decreased today Gynecology input appreciated, to do biopsy as outpatient Continue Eliquis and monitor for worsening bleeding Acute kidney injury Creatinine improved almost to baseline Likely secondary to dehydration, prerenal Hold IVF monitor BMP Syncope and collapse Has recent presentation with similar complain, cardiac workup was negative at that point Could be related to postural hypotension, acute blood loss anemia Received IVF and blood transfusion Monitor orthostatic pressure Given telemetry overnight Might need further evaluation and midodrine Headache Seems to be secondary to sinus pain Start nasal spray and Advil Recent PE Hold Eliquis for severe menstrual bleed DVT PPX Eliquis blood in, depression the (5) Vaginal bleeding: Status: Acute (6) Pulmonary embolism: Status: Acute
--- NOTE | 2020-10-06 15:28 | PC.NURSE ---
Addendum entered by Sagrario Jeffrey RN 10/06/20 15:31: pt wanting to stay an additional night. aware. holding d/c for now Original Note: pt was set to d/c this afternoon. Pt rang call [facility]rew[facility] - stating she is having a naggining headache 04/20 and doesnt usually get headaches but cant shake this one. Also states she is having a tremor in left hand. Rn held hands of pt - very slight tremor in left. Pt unsure about leaving. Contacted Md; to room to talk with pt. Gave pt some tylenol for headache pain - accepted hot packs, didnt want any ice packs. Pt stated tylenol helped a bit but that the headache still lingering- MD added advil for sinus pain as well as nasal spray. Will give when pharmacy verifies.
[2020-10-06] MEDS: Ibuprofen 400 MG TABLET PO (15:54)
[2020-10-06] MEDS: Sodium Chloride 0.65 % Nasal 44 ML SPRBTL 1 SPRAY NOSTRIL-B ×3 (16:01→23:30)
[2020-10-07 04:16] VITALS: BP 125/71; PULSE 50; RESP 14; TEMP 37.1; O2SAT 97
[2020-10-07] MEDS: oxyCODONE HCl Immed Release 5 MG TABLET PO (05:40)
[2020-10-07] MEDS: Sodium Chloride 0.65 % Nasal 44 ML SPRBTL 1 SPRAY NOSTRIL-B (05:41)
[2020-10-07] MEDS: Acetaminophen 325 MG TABLET 650 MG PO (06:48)
[2020-10-07 06:59] LABS: Hematocrit 38.1 % (37-47); Hemoglobin 12.2 g/dl (12.0-16.0); Mean Corpuscular Hemoglobin 28.6 pg (27.0-33.0); Mean Corpuscular Volume 89.2 fL (80-98); Mean Platelet Volume 10.2 fL (9.4-12.3); Platelet Count 320 X10*3/uL (160-400); Red Blood Count 4.27 X10*6/uL (4.20-5.50); Red Cell Distribution Width 13.2 % (11.0-16.0); White Blood Count 7.1 X10*3/uL (4.8-10.8)
[2020-10-07 07:15] VITALS: BP 135/80; PULSE 47; RESP 18; TEMP 36.7; O2SAT 97
[2020-10-07] MEDS: Multivitamin TABLET 1 TAB PO (07:38)
[2020-10-07] MEDS: busPIRone HCl 5 MG TABLET 15 MG PO (07:38)
[2020-10-07] MEDS: Apixaban 2.5 MG TABLET PO (07:38)
[2020-10-07] MEDS: clonazePAM 0.5 MG TABLET PO (07:38)
[2020-10-07] MEDS: Gabapentin 600 MG TABLET PO (07:38)
[2020-10-07] MEDS: TiZANidine HCL 4 MG TABLET PO (07:38)
[2020-10-07] MEDS: Vortioxetine Hydrobromide 20 MG TABLET PO (07:38)
[2020-10-07] MEDS: diphenhydrAMINE HCL 50 MG/ML VIAL 12.5 MG IVPUSH (07:39)
[2020-10-07] MEDS: 0.9 % Sodium Chloride Flush 3 ML SYRINGE IVFLUSH (07:39)
[2020-10-07 08:00] VITALS: BP 135/80; PULSE 47
--- NOTE | 2020-10-07 11:10 | MHC.CM.PN ---
Pt will DC home today with no services
--- NOTE | 2020-10-07 16:20 | P.DS_ITS ---
DS: Providers Provider Date of admission: 10/04/20 16:55 Primary care physician: Frances Gaytan DO Consults: 10/04/20 16:56 Consult to Obstetrics / Gynecology Routine Consulting Provider: Harjinder Stovall Reason for consultation: symptomatic anemia, vaginal bleed, Hx uterin polyps on blood thinners DS: Diagnosis Discharge Diagnosis (1) Syncope and collapse: Status: Acute (2) Acute kidney injury (BISI) with acute tubular necrosis (ATN): Status: Acute (3) Dyspnea: Status: Acute (4) Blood loss anemia: Status: Acute (5) Vaginal bleeding: Status: Acute (6) Pulmonary embolism: Status: Acute DS: Medications Discharge Medications Home Medications: Home Medications Medication Instructions Recorded Confirmed Trintellix 20 mg PO QAM 08/29/20 10/04/20 buspirone 15 mg PO BID 08/29/20 10/04/20 clonazepam 0.5 tab PO TID PRN 08/29/20 10/04/20 dextroamphetamine-amphetamine 10 mg PO QAM 08/29/20 10/04/20 dextroamphetamine-amphetamine 30 mg PO QAM 08/29/20 10/04/20 gabapentin 600 mg PO TID 08/29/20 10/04/20 oxycodone-acetaminophen 1 tab PO Q8H PRN 08/29/20 10/04/20 tizanidine 4 mg PO Q8H PRN 08/29/20 10/04/20 apixaban 2.5 mg tablet 2.5 mg PO BID 09/20/20 10/04/20 multivitamin 1 tab PO DAILY 10/04/20 10/04/20 Previous Rx's Medication Instructions Recorded ferrous sulfate 325 mg PO DAILY #30 tab 10/06/20 walker [Ultra-Light Rollator] #1 ea 10/06/20 DS: Summary Hospital Course Hospital Course: Admission note HPI A 45 years old lady with PMH of EDS hypermotility syndrome, recent PE on Eliquis among others who presented to the hospital for increased dizziness and shortness of breath with episode of syncope. The patient reports that she feels dizzy on and of during regular days but for the last 2 days she start having her menstrual per the iod For the 1st time while on blood thinners and noticed significant amount of bleeding using 6-8 pads the a day. She noticed exertional dyspnea and shortness of breath and she was not able to walk for any short distance because of dizziness and dyspnea. She denies any chest pain but reported feeling palpitation and O2 sat heart rate was running around 120 with exertion. She was well walking upstairs when she lost her conscious and fell on the stairs hitting a her face but seems like she never lost her conscious. In the emergency CTA of chest abdomen pelvis were negative for any acute findings. Showing previous PE to be resolved. Blood pressure was noted to be significantly low and admitted for further evaluation and treatment Hospital course Acute Blood-loss anemia Symptomatic anemia As a of result or vaginal bleeding. Presented with dyspnea on exertion, fatigue. Hemoglobin was noticed to be dropping and she received 1 unit of transfusion with improvement to 12 at time of discharge. Vaginal Bleeding Secondary to commences while on Eliquis without taking her hormone and therapy. Gynecology evaluated the patient and there input appreciated, to do biopsy as outpatient S suggested to Continue Eliquis. The patient did not have any worsening bleedi ng after 1 day of Eliquis. To be discharged home to follow-up with Dr. Stovall in the office. Acute kidney injury Noticed at time of presentation which is likely a result of dehydration. Improved back to baseline with IV fluids. Syncope and collapse Likely related to postural hypotension, and acute blood loss anemia Has recent presentation with similar complain, cardiac workup was negative at th at point Hydration and decreased oral intake. Improved with IV fluid and encouraged oral intake. Orthostatic vitals were checked and returned back to normal with no symptomatic dizziness. Headache Seems to be secondary to sinus pain Relieved with nasal spray and Advil Recent PE Restarted on Eliquis Time Spent with Patient Time attestation: Total time spent providing and/or coordinating discharge services: Physical Exam Vital Signs: Vital Signs: Last Vital Signs Temp 98.1 F 10/07/20 07:15 Pulse 47 L 10/07/20 08:00 Resp 18 10/07/20 07:15 BP 135/80 10/07/20 08:00 Pulse Ox 97 10/07/20 07:15 Body Mass Index 24.1 Constitutional : Alert, oriented, not in distress Neck : Normal inspection, Supple Cardiovascular : RRR, S1 S2, no lower extremity edema Respiratory : Good bilateral air entry, no crackles, wheezes or rhonchi Gastrointestinal: soft, lax, Normal bowel sounds, Non tender Skin : Warm/Dry, No rash Neurological : Alert & oriented x3, No focal deficit DS: Data Data Completed and Pending Labs on day of discharge: 10/04/20 11:14 ECG [address] head/brain wo con Stat XR chest 1V Stat 10/04/20 11:15 0.9 % Sodium Chloride [Ns] 1,000 ml IVCONT 999 mls/hr 10/04/20 11:16 Continuous Cardiac Monitoring NOW EKG Documentation DIRECTED Vital Signs, Orthostatic NOW 10/04/20 11:39 Basic Metabolic Panel Stat Complete Blood Count Auto Diff Stat HCG Quantitative Stat Liver Panel Stat Magnesium Stat Prothrombin Time INR Stat Thyroid Stimulating Hormone Stat Troponin-I High Sensitivity Stat 10/04/20 11:42 COVID-19 ID NOW (Amanda Huff [facility]) Stat 10/04/20 12:08 Red Blood Cells Stat Type and Screen Stat 10/04/20 13:04 CT angio abdomen pelvis Stat CT angio chest Stat 10/04/20 13:15 0.9 % Sodium Chloride [Ns] 500 ml IV 999 mls/hr 10/04/20 13:30 0.9 % Sodium Chloride [Ns] 1,000 ml IV 999 mls/hr 10/04/20 13:57 iohexoL 350 MG/ML [Omnipaque 350 MG/ML] 100 ml IV ONCE ONE 10/04/20 14:38 Add Laboratory Test Stat 10/04/20 14:44 Consult Rx Perform Med Rec 1 each MISCELLANE ONCE PRN 10/04/20 16:00 Urine Culture Routine 10/04/20 16:07 Drug Screen Urine Stat 10/04/20 16:48 Transfer Order Routine 10/04/20 16:50 Code Status Routine 10/04/20 16:55 oxyCODONE HCl Immed Release [Roxicodone] 5 mg PO Q6H PRN 10/04/20 16:55 Compression Therapy QSHIFT 10/04/20 17:00 0.9 % Sodium Chloride [Ns] 1,000 ml IVCONT 100 mls/hr 10/04/20 17:46 Gabapentin [Neurontin] 600 mg PO ONCE ONE TiZANidine HCL [Zanaflex] 4 mg PO ONCE ONE busPIRone HCl [BuSpar] 15 mg PO ONCE ONE 10/04/20 18:27 Acetaminophen [Tylenol] 650 mg PO Q6H PRN TiZANidine HCL [Zanaflex] 4 mg PO Q8H PRN clonazePAM [KlonoPIN] 0.5 mg PO TID PRN ondansetron HCL [Zofran] 4 mg IVPUSH Q8H PRN 10/04/20 18:27 Bedrest w/bathroom privileges .as directed Cont. Telemetry w/Vital Sign limit Q4HR IV insert/maintain Q4HR Intake and Output QSHIFTE Pulse Oximetry Q4HR Vital Signs Q4HR 10/04/20 19:08 clonazePAM [KlonoPIN] 0.5 mg PO TID PRN 10/04/20 21:00 Gabapentin [Neurontin] 600 mg PO TID busPIRone HCl [BuSpar] 15 mg PO BID 10/04/20 21:45 Lactated Ringers [Lr] 1,000 ml IVCONT 999 mls/hr 10/04/20 23:00 Lactated Ringers [Lr] 500 ml IVCONT 999 mls/hr 10/05/20 00:00 0.9 % Sodium Chloride Flush [NS Flush] 3 ml IVFLUSH QSHIFT 10/05/20 05:33 Basic Metabolic Panel DAILY@0600 Complete Blood Count Auto Diff DAILY@0600 Prothrombin Time INR DAILY@0600 Thyroid Stimulating Hormone Routine 10/05/20 09:00 Vital Signs, Orthostatic DAILY Multivitamin 1 tab PO DAILY Non-Formulary Medication 30 each PO DAILY Vortioxetine Hydrobromide [Trintellix] 20 mg PO DAILY 10/05/20 10:48 Physical Therapy Eval & Treat NEEDED 10/05/20 21:00 Apixaban [Eliquis] 2.5 mg PO BID 10/06/20 00:24 diphenhydrAMINE HCL [Benadryl] 25 mg IVPUSH ONCE ONE 10/06/20 05:11 Basic Metabolic Panel DAILY@0600 Complete Blood Count no Diff DAILY@0600 10/06/20 06:02 diphenhydrAMINE HCL [Benadryl] 12.5 mg IVPUSH Q8H PRN 10/06/20 15:21 Ibuprofen [Motrin] 400 mg PO ONCE ONE Sodium Chloride 0.65 % Nasal [[place] 0.65% Nasal] 1 spray NOSTRIL-B Q1H PRN 10/07/20 05:18 Complete Blood Count no Diff DAILY@0600 Laboratory Last Values WBC 7.1 X10*3/uL (4.8-10.8) 10/07/20 05:18 RBC 4.27 X10*6/uL (4.20-5.50) 10/07/20 05:18 Hgb 12.2 g/dl (12.0-16.0) 10/07/20 05:18 Hct 38.1 % (37-47) 10/07/20 05:18 MCV 89.2 fL (80-98) 10/07/20 05:18 MCH 28.6 pg (27.0-33.0) 10/07/20 05:18 MCHC 32.0 g/dl (31.0-35.0) 10/07/20 05:18 RDW 13.2 % (11.0-16.0) 10/07/20 05:18 Plt Count 320 X10*3/uL (160-400) D 10/07/20 05:18 MPV 10.2 fL (9.4-12.3) 10/07/20 05:18 Immature Gran % (Auto) 0.2 % (0.0-0.4) 10/05/20 05:33 Neut % (Auto) 45.7 % (45-73) 10/05/20 05:33 Lymph % (Auto) 37.4 % (20-40) 10/05/20 05:33 [place] % (Auto) 12.0 % (2-11) H 10/05/20 05:33 Eos % (Auto) 4.5 % (0-4) H 10/05/20 05:33 Baso % (Auto) 0.2 % (0-2) 10/05/20 05:33 Lymph # (Auto) 1.7 X10*3/uL (1.2-4.9) 10/05/20 05:33 [place] # (Auto) 0.5 X10*3/uL (0.1-1.2) 10/05/20 05:33 Eos # (Auto) 0.2 X10*3/uL (0.0-0.4) 10/05/20 05:33 Baso # (Auto) 0.0 X10*3/uL (0.0-0.2) 10/05/20 05:33 Abs Immat Gran (auto) 0.01 X10*3/uL (0.00-0.03) 10/05/20 05:33 Absolute Neuts (auto) 2.1 X10*3/uL (2.0-8.3) 10/05/20 05:33 Absolute Nucleated RBC 0.000 X10*3/uL (0.0-0.012) 10/07/20 05:18 Nucleated RBC % (auto) 0.0 /100WBC (0.0-0.2) 10/07/20 05:18 PT 12.1 SEC (10.8-13.0) D 10/05/20 05:33 INR 1.0 (0.9-1.1) 10/05/20 05:33 Sodium 141 mmol/L (135-145) 10/06/20 05:11 Potassium 3.6 mmol/l (3.3-5.1) 10/06/20 05:11 Chloride 108 mmol/L (96-108) 10/06/20 05:11 Carbon Dioxide 25 mmol/L (22-29) 10/06/20 05:11 Anion Gap 12 (-20) 10/06/20 05:11 BUN 10 mg/dL (9-16) 10/06/20 05:11 Creatinine 0.68 mg/dL (0.5-1.4) 10/06/20 05:11 Estim Creat Clear Calc 88.2 10/06/20 05:11 Estimated GFR > 60 10/06/20 05:11 Random Glucose 78 mg/dL (60-115) 10/06/20 05:11 Calcium 8.0 mg/dL (8.4-10.2) L 10/06/20 05:11 Magnesium 2.1 mg/dL (1.6-2.6) 10/04/20 11:39 Total Bilirubin 0.7 mg/dL (0.0-1.0) 10/04/20 11:39 Direct Bilirubin 0.3 mg/dL (0.0-0.5) 10/04/20 11:39 AST 24 U/L (5-31) 10/04/20 11:39 ALT 13 U/L (0-31) 10/04/20 11:39 Alkaline Phosphatase 67 U/L (39-117) 10/04/20 11:39 Troponin I High Sens < 3.5 ng/L (<3.5-17.0) 10/04/20 11:39 Total Protein 7.4 g/dL (6.5-8.0) 10/04/20 11:39 Albumin 4.3 g/dL (3.5-5.0) 10/04/20 11:39 TSH 0.52 uIU/mL (0.32-4.0) 10/05/20 05:33 Beta HCG, Quant < 2 mIU/mL 10/04/20 11:39 Urine Color RED 10/04/20 16:07 Urine Appearance TURBID 10/04/20 16:07 Urine pH 5.0 (5.0-8.0) 10/04/20 16:07 Ur Specific [place] <= 1.005 (1.005-1.025) 10/04/20 16:07 Urine Protein 1+ MG/DL (NEG-TRACE) H 10/04/20 16:07 Urine Glucose (UA) NEG MG/DL (NEG) 10/04/20 16:07 Urine Ketones NEG MG/DL (NEG) 10/04/20 16:07 Urine Blood 3+ (NEG) H 10/04/20 16:07 Urine Nitrite NEG (NEG) 10/04/20 16:07 Ur Leukocyte Esterase TRACE (NEG) H 10/04/20 16:07 Urine RBC 76-150 /HPF (0) H 10/04/20 16:07 Urine WBC 0-2 /HPF (0-4) 10/04/20 16:07 Ur Squamous Epith Cells TRACE /LPF 10/04/20 16:07 Urine Bacteria NONE /LPF 10/04/20 16:07 Urine Opiates Screen Not Detected (Not Detect) 10/04/20 16:07 Ur Barbiturates Screen Not Detected (Not Detect) 10/04/20 16:07 Ur Phencyclidine Scrn Not Detected (Not Detect) 10/04/20 16:07 Ur Amphetamines Screen Not Detected (Not Detect) 10/04/20 16:07 U Benzodiazepines Scrn Not Detected (Not Detect) 10/04/20 16:07 Urine Cocaine Screen Not Detected (Not Detect) 10/04/20 16:07 U Marijuana (THC) Screen POSITIVE (Not Detect) H 10/04/20 16:07 COVID-19 (VANDANA) Negative (Negative) 10/04/20 11:42 COVID-19 Clin Com See Note 10/04/20 11:42 Blood Type A Positive 10/04/20 12:08 Antibody Screen NEGATIVE 10/04/20 12:08 Crossmatch See Detail 10/04/20 12:08 Discharge Plan Discharge Patient Disposition: Home Health Service Referrals: [facility] [Outside] Frances Sung DO [Primary Care Provider] - Discharge Medications: New ferrous sulfate 325 mg (65 mg iron) tablet 325 mg PO DAILY Qty: 30 RF: 0 (DME) Ultra-Light Rollator Misc See Rx Instructions .ROUTE .MEDSUPPLY Qty: 1 RF: 0 Continued multivitamin Tablet 1 tab PO DAILY RF: 0 gabapentin 600 mg tablet 600 mg PO TID RF: 0 tizanidine 4 mg tablet 4 mg PO Q8H PRN (Reason: muscle spasm) RF: 0 clonazepam 1 mg tablet 0.5 tab PO TID PRN (Reason: Anxiety) RF: 0 oxycodone-acetaminophen 5-325 mg tablet 1 tab PO Q8H PRN (Reason: pain) RF: 0 dextroamphetamine-amphetamine 10 mg capsule,extended release 24hr 10 mg PO QAM RF: 0 dextroamphetamine-amphetamine 30 mg capsule,extended release 24hr 30 mg PO QAM RF: 0 buspirone 15 mg tablet 15 mg PO BID RF: 0 Trintellix 20 mg tablet 20 mg PO QAM RF: 0 apixaban 2.5 mg tablet 2.5 mg PO BID RF: 0 Discharge Orders: Discharge Order (Routine); Ordered 10/07/20 Ordered By: Parth Mo Diet: advance to usual diet Activity on Discharge: As tolerated Discharge Date/Time: 10/07/20 12:50 Visit Report Forms: Patient Portal Discharge page Care Plan Goals: Read below Health Concerns: Read below Plan of Treatment: Admitted to the hospital for evaluation of increased dizziness and shortness of breath. Complaining of vaginal bleeding. You were noticed to have a drop in your blood level requiring 1 unit transfusion with good response. Your blood pressure improved with hydration. We advise you to continue drinking plenty of water during the day. You were evaluated by cadd operator Dr. Stovall who recommended follow-up as outpatient for further testing of your bleeding problem. Your kidneys were try at time of presentation but improved back to baseline with IV fluids. Continue home medications Start taking iron pills daily Follow-up with Dr. Stovall in the office after calling for an appointment
== END 2020-10-07 12:50 | disposition home health service (06) | DRG 532 ==
LOC: HO.ED 11:28 → HO.IMC 17:16
PROVIDERS: Admitting Provider Student in an Organized Health Care Education/Training Program; Emergency Provider Emergency Medicine Emergency Medical Services; PCP Internal Medicine; Visit Provider Student in an Organized Health Care Education/Training Program
DX: N92.0 Excessive and frequent menstruation with regular cycle (principal); N17.0 Acute kidney failure with tubular necrosis; D62 Acute posthemorrhagic anemia; I95.1 Orthostatic hypotension; Z20.828 Contact with and (suspected) exposure to other viral communicable diseases; Z86.711 Personal history of pulmonary embolism; Z88.0 Allergy status to penicillin; Z79.01 Long term (current) use of anticoagulants; Z79.3 Long term (current) use of hormonal contraceptives; Z79.891 Long term (current) use of opiate analgesic; Z79.899 Other long term (current) drug therapy
CPT/HCPCS: 36415; 70450; 71045; 71275; 74174; 80048; 80076; 80307; 81001; 83735; 84443; 84484; 84702; 85025; 85027; 85610; 86850; 86900; 86901; 86920; 86923; 87086; 87635; 93005; 96360; 96361; 97162; 99284; 99291; J1200; P9016; Q9967

== ENCOUNTER 2020-10-08 13:45 | Outpatient (REF) | payer OTHER, SELFPAY | END 2020-10-08 13:46 | disposition home or self-care (01) | LOC: HO.LAB 13:45 | PROVIDERS: PCP Internal Medicine; Visit Provider Obstetrics & Gynecology | DX: N93.9 Abnormal uterine and vaginal bleeding, unspecified (principal) | CPT/HCPCS: 58100; 88305; 99212 ==

== ENCOUNTER 2020-10-18 10:05 | Outpatient (REF) | payer OTHER, SELFPAY ==
[2020-10-19 22:38] LABS: C. trachomatis RNA TMA NOT DETECTED (NOT DETECTED); N. gonorrhoeae RNA TMA NOT DETECTED (NOT DETECTED)
== END 2020-10-18 10:06 | disposition home or self-care (01) ==
LOC: HO.LAB 10:05
PROVIDERS: PCP Internal Medicine; Visit Provider Obstetrics & Gynecology
DX: N93.9 Abnormal uterine and vaginal bleeding, unspecified (principal); Z30.430 Encounter for insertion of intrauterine contraceptive device
CPT/HCPCS: 36415; 87491; 87591

== ENCOUNTER 2020-10-19 14:28 | Emergency (ER) | payer OTHER, SELFPAY ==
[2020-10-19 14:44] VITALS: BP 141/87; PULSE 68; RESP 18; TEMP 36.8; O2SAT 100; BMI 25.7
== END 2020-10-19 19:00 | disposition left against medical advice (07) ==
PROVIDERS: Emergency Provider Emergency Medicine; PCP Internal Medicine
DX: Z04.9 Encounter for examination and observation for unspecified reason (principal)
CPT/HCPCS: 99281; 99282

== ENCOUNTER 2020-10-19 20:06 | Emergency (ER) | payer OTHER, SELFPAY ==
[2020-10-19 20:19] VITALS: BP 155/84; BP 172/90; PULSE 87; PULSE 88; RESP 18; TEMP 36.8; O2SAT 99; BMI 25.7
--- NOTE | 2020-10-19 22:21 | ECG_ITS ---
Test Reason : DIZZINESS Blood Pressure : / mmHG Vent. Rate : 055 BPM Atrial Rate : 055 BPM P-R Int : 136 ms QRS Dur : 094 ms QT Int : 408 ms P-R-T Axes : 049 084 061 degrees QTc Int : 390 ms Sinus bradycardia Anterior T wave inverions - consider ischemia abnormal ECG When compared to the previous EKG of Anterior T wave inversions are more prominent Referred By: Brett Roldan Electronically Signed By:Gerson Toibn
--- NOTE | 2020-10-19 22:21 | CT_ITS ---
EXAMINATION: CT HEAD WITHOUT CONTRAST CLINICAL INFORMATION: Headache. On blood thinners. COMPARISON: CT head 10/04/2020 TECHNIQUE: Contiguous axial imaging was performed from the skull base to vertex without intravenous administration of contrast. Coronal and sagittal reformatted images are performed at CT scanner This CT examination was performed using dose optimization techniques as appropriate, variously including the following: *Automated exposure control *Adjustment of mA and/or kV according to patient size (this includes techniques or standardized protocols for targeted exams where dose is matched to indication/reason for exam; i.e. extremities or head) *Use of iterative reconstruction technique DLP: 629 mGy-cm FINDINGS: There is no evidence of acute intracranial hemorrhage or territorial infarction. No abnormal mass effect or midline shift is seen. [place] to white matter differentiation is well preserved. No extra-axial fluid collections are identified. The ventricles are normal in size. There is no abnormal attenuation within the brain parenchyma. The osseous structures and soft tissues are normal. The mastoid air cells and visualized portions of the paranasal sinuses are well aerated. CT/CT head/brain wo con IMPRESSION: No acute intracranial pathology.
--- NOTE | 2020-10-19 22:24 | ED_ITS ---
HPI - General Adult General Chief complaint: General Medical Stated complaint: nausea vomiting dizness Time Seen by Provider: 10/19/20 22:06 Source: patient Mode of arrival: ambulatory Limitations: no limitations History of Present Illness HPI narrative: 45-year-old female who presents emergency department for evalu ation of dizziness, nausea, headache, blurred vision and weakness x1 day. The patient describes the dizziness as a lightheaded sensation as if she is going to pass out. She states that over the past 24 hours she has had nausea and vomiting has not been able to eat or drink secondary to her nausea and vomiting. The patient states that she is also having posterior neck pain and posterior headache which she describes as a constant, dull ache which is [id number] in intensity. Patient also states that she has been having visual hallucinations, seeing numbers and letters. The patient states that she had similar dizziness 2 weeks prior when she was admitted to the hospital. In reviewing the patient's records, the patient was admitted to this hospital October 04, 2020 for syncope secondary anemia caused by vaginal bleeding. The patient had a recent diagnosis of pulmonary embolism and was started on Eliquis which cause her to have significant vaginal bleeding which was thought to be the source of her anemia. The patient states that she was transfused 1 unit while she was in the hospital. She was also noted to have mild acute kidney injury secondary to acute tubular necrosis felt to be secondary to volume depletion. The patient did follow-up with gynecology and had a Mirena IUD placed yesterday. She states that since being discharged from the hospital she is continuing to take Eliquis and she has continued to have vaginal bleeding. She states that she changes her OB had every 3-4 hours which is less frequent than previously but still unusual for her. Related Data Home Medications Medication Instructions Recorded Confirmed Trintellix 20 mg PO QAM 08/29/20 10/04/20 buspirone 15 mg PO BID 08/29/20 10/04/20 clonazepam 0.5 tab PO TID PRN 08/29/20 10/04/20 dextroamphetamine-amphetamine 10 mg PO QAM 08/29/20 10/04/20 dextroamphetamine-amphetamine 30 mg PO QAM 08/29/20 10/04/20 gabapentin 600 mg PO TID 08/29/20 10/04/20 oxycodone-acetaminophen 1 tab PO Q8H PRN 08/29/20 10/04/20 tizanidine 4 mg PO Q8H PRN 08/29/20 10/04/20 apixaban 2.5 mg tablet 2.5 mg PO BID 09/20/20 10/04/20 multivitamin 1 tab PO DAILY 10/04/20 10/04/20 Previous Rx's Medication Instructions Recorded ferrous sulfate 325 mg PO DAILY #30 tab 10/06/20 walker [Ultra-Light Rollator] #1 ea 10/06/20 norethindrone (contraceptive) 0.35 0.35 mg PO DAILY #28 tab 10/08/20 mg tablet Allergies Allergy/AdvReac Type Severity Reaction Status Date / Time erythromycin base Allergy Severe PANCREATITI Verified 10/18/20 10:23 [ERYTHROMYCIN BASE] S Penicillins [PCN] Allergy Severe HIVES Verified 10/18/20 10:23 Review of Systems Review of Systems: Yes all other systems are reviewed and are negative Neurologic: Reports Abnormal speech present [facility] Past Medical History [facility] Narrative: The patient denies tobacco and alcohol use. She states that she uses medical marijuana for chronic pain but has not smoked in over 2 weeks. She usually smokes marijuana daily. Medical History EDS (Juan-Danlos syndrome) Menorrhagia Oral contraceptive use Pulmonary embolism Subchondral sclerosis Subchondral sclerosis Syncope and collapse Surgical History H/O knee surgery H/O shoulder surgery Family History Family History Paternal Aunt Breast cancer Father Diabetes High cholesterol HTN (hypertension) Maternal Uncle Stroke Maternal Grandfather Emphysema lung Lung cancer Maternal Grandmother Asthma Son Asthma Social History Social History Household Members: Children Housing: Apartment Alcohol intake: never Smoking Status: Never smoker Second Hand Smoke Exposure: No Advance Directives: No Advance Directives Information Provided: Yes service: No Current occupational status: unemployed Physical Exam Vital Signs: Vital Signs: Last Vital Signs Temp 98.3 F 10/19/20 20:19 Pulse 62 10/19/20 22:45 Resp 14 10/19/20 22:45 BP 141/86 H 10/19/20 22:45 Pulse Ox 99 10/19/20 22:45 Body Mass Index 25.7 Const: General: cooperative, healthy appearing and other (Very pleasant and cooperative) Orientation/consciousness: oriented to person and oriented to place Limitations: no limitations HENMT: Head: Yes normal to inspection, Yes normocephalic, Yes atraumatic and Yes scalp tenderness (Occipital area) Ears: external ears normal General nose exam: Normal external nose present Face and sinus: Yes normal facial exam Mouth: Normal oral and palatal mucosa present Throat: Yes posterior oropharynx normal Eyes: Periorbital: periorbital findings normal Eyelids: Yes eyelids normal Conjunctivae: conjunctivae normal Sclerae: sclerae normal Corneas: corneas normal Pupils: Equal, round and reactive pupils present Direct Ophthalmoscopy: normal light reflex Neck: Neck: Yes full ROM, Yes no lymphadenopathy, Yes no meningeal signs, Yes trachea midline, Yes supple and Yes other (Tender trapezius muscles bilaterally) Chest: Chest palpation & inspection: normal inspection of the chest and normal palpation of entire chest wall Resp: Effort & Inspection: normal respiratory effort and able to speak in complete sentences Auscultation: clear to auscultation bilaterally Cardio: Rate: regular rate Rhythm: regular rhythm Heart sounds: S1 n ormal heart sound present, S2 normal heart sound present and no murmurs GI: Inspection: Yes normal to inspection Palpation (GI): Soft to palpation, nontender, no guarding, not rigid and No hepatosplenomegaly present : General: Yes no CVA tenderness Back/Spine/Pelvis: Back: no CVA tenderness Cervical Spine: normal cervical lordosis Thoracic/Lumbar Spine: thoracic and lumbar spine normal to inspection Skin: Lesions: no lesions Rashes: no rashes Wounds: no wounds Neuro: General: oriented to person, oriented to place and no meningeal signs Cranial nerves: Yes CN's II-XII intact bilaterally, Yes Equal, round and reactive pupils present, Yes Nystagmus not present and Yes Midline tongue present Cognition (Neuro): normal cognition Speech: Abnormal speech present Motor exam (neuro): 5/5 motor strength present throughout Extrem: General: Yes normal to inspection and Yes full ROM Psych: Appearance: well kempt Mental Status: mental status grossly normal Speech and movement: Normal speech and movement present Affect: normal affect Attitude: cooperative Thought process: Normal thought process present Thought content: Normal thought content present Course Course Course Narrative: 45-year-old female who presents emergency department for evaluation nausea, vomiting, weakness and headache which started 24 hours prior to evaluation. The patient was hospitalized approximately 2 weeks prior for syncopal episode secondary to anemia caused by vaginal bleeding secondary to Eliquis use for recent pulmonary embolism. Patient states he has required 1 unit of transfusion during that admission. Patient continues to have vaginal bleeding since discharge. She did have a Mirena IUD placed yesterday. Patient's examination revealed a subcapital and neck tenderness otherwise was unremarkable. I did order laboratory evaluation, EKG to evaluate her weakness and CT scan of the head to rule out bleed secondary to anticoagulant use. Patient was ordered to get normal saline x1 L and Zofran 4 mg IV. 0034: The patient's H&H was normal at 12.9 and 39.7 which rules out anemia as the cause of her symptoms. The patient's laboratory evaluation was otherwise unremarkable except for urinalysis. The patient had positive trace leukocyte esterase, negative nitrates, microscopic field 15-29 wbc's, 3+ bacteria 3+ squamous cells. The patient is minimally symptomatic with pelvic pain with this could be related to IUD. I did discuss treating with antibiotics versus waiting for cultures and patient prefers inserted on antibiotic for possible urinary tract infection. She was given her 1st dose of Bactrim orally and started on Bactrim b.i.d. x5 days. Patient states she is feeling significantly better after receiving IV fluid and getting Zofran IV. Patient's symptoms may be related to the IUD or she may have a viral infection I discussed this with her. She was discharged with a prescription for Zofran as well. Medical Decision Making Lab Data Result diagrams: 10/19/20 23:00 10/19/20 23:00 Labs: Lab Results 10/19/20 10/19/20 10/19/20 Range/Units 22:38 23:00 23:00 WBC 9.9 (4.8-10.8) X10*3/uL RBC 4.57 (4.20-5.50) X10*6/uL Hgb 12.9 (12.0-16.0) g/dl Hct 39.7 (37-47) % MCV 86.9 (80-98) fL MCH 28.2 (27.0-33.0) pg MCHC 32.5 (31.0-35.0) g/dl RDW 13.3 (11.0-16.0) % Plt Count 401 H D (160-400) X10*3/uL MPV 9.6 (9.4-12.3) fL Immature Gran % (Auto) 0.2 (0.0-0.4) % Neut % (Auto) 72.1 (45-73) % Lymph % (Auto) 20.9 (20-40) % [place] % (Auto) 6.4 (2-11) % Eos % (Auto) 0.2 (0-4) % Baso % (Auto) 0.2 (0-2) % Lymph # (Auto) 2.1 (1.2-4.9) X10*3/uL [place] # (Auto) 0.6 (0.1-1.2) X10*3/uL Eos # (Auto) 0.0 (0.0-0.4) X10*3/uL Baso # (Auto) 0.0 (0.0-0.2) X10*3/uL Abs Immat Gran (auto) 0.02 (0.00-0.03) X10*3/uL Absolute Neuts (auto) 7.1 (2.0-8.3) X10*3/uL Absolute Nucleated RBC 0.000 (0.0-0.012) X10*3/uL Nucleated RBC % (auto) 0.0 (0.0-0.2) /100WBC Sodium 140 (135-145) mmol/L Potassium 3.5 (3.3-5.1) mmol/l Chloride 102 (96-108) mmol/L Carbon Dioxide 26 (22-29) mmol/L Anion Gap 16 (12-20) BUN 5 L (9-16) mg/dL Creatinine 0.74 (0.5-1.4) mg/dL Estim Creat Clear Calc 89.3 Estimated GFR > 60 Random Glucose 96 (60-115) mg/dL Calcium 9.3 D (8.4-10.2) mg/dL Total Bilirubin 0.9 (0.0-1.0) mg/dL AST 14 D (5-31) U/L ALT 9 (0-31) U/L Alkaline Phosphatase 55 (39-117) U/L Total Protein 8.1 H (6.5-8.0) g/dL Albumin 5.0 (3.5-5.0) g/dL Lipase 33 (8-78) U/L Urine Color YELLOW Urine Appearance HAZY Urine pH 6.0 (5.0-8.0) Ur Specific Shel[place] 1.020 (1.005-1.025) Urine Protein 2+ H (NEG-TRACE) MG/DL Urine Glucose (UA) NEG (NEG) MG/DL Urine Ketones >=80 (NEG) MG/DL Urine Blood 3+ H (NEG) Urine Nitrite NEG (NEG) Ur Leukocyte Esterase TRACE H (NEG) Urine RBC 1-4 (0) /HPF Urine WBC 15-29 H (0-4) /HPF Ur Squamous Epith Cells 3+ /LPF Urine Bacteria 3+ /LPF Blood Type Antibody Screen 10/19/20 Range/Units 23:00 WBC (4.8-10.8) X10*3/uL RBC (4.20-5.50) X10*6/uL Hgb (12.0-16.0) g/dl Hct (37-47) % MCV (80-98) fL MCH (27.0-33.0) pg MCHC (31.0-35.0) g/dl RDW (11.0-16.0) % Plt Count (160-400) X10*3/uL MPV (9.4-12.3) fL Immature Gran % (Auto) (0.0-0.4) % Neut % (Auto) (45-73) % Lymph % (Auto) (20-40) % [place] % (Auto) (2-11) % Eos % (Auto) (0-4) % Baso % (Auto) (0-2) % Lymph # (Auto) (1.2-4.9) X10*3/uL [place] # (Auto) (0.1-1.2) X10*3/uL Eos # (Auto) (0.0-0.4) X10*3/uL Baso # (Auto) (0.0-0.2) X10*3/uL Abs Immat Gran (auto) (0.00-0.03) X10*3/uL Absolute Neuts (auto) (2.0-8.3) X10*3/uL Absolute Nucleated RBC (0.0-0.012) X10*3/uL Nucleated RBC % (auto) (0.0-0.2) /100WBC Sodium (135-145) mmol/L Potassium (3.3-5.1) mmol/l Chloride (96-108) mmol/L Carbon Dioxide (22-29) mmol/L Anion Gap (12-20) BUN (9-16) mg/dL Creatinine (0.5-1.4) mg/dL Estim Creat Clear Calc Estimated GFR Random Glucose (60-115) mg/dL Calcium (8.4-10.2) mg/dL Total Bilirubin (0.0-1.0) mg/dL AST (5-31) U/L ALT (0-31) U/L Alkaline Phosphatase (39-117) U/L Total Protein (6.5-8.0) g/dL Albumin (3.5-5.0) g/dL Lipase (8-78) U/L Urine Color Urine Appearance Urine pH (5.0-8.0) Ur Specific Shelly (1.005-1.025) Urine Protein (NEG-TRACE) MG/DL Urine Glucose (UA) (NEG) MG/DL Urine Ketones (NEG) MG/DL Urine Blood (NEG) Urine Nitrite (NEG) Ur Leukocyte Esterase (NEG) Urine RBC (0) /HPF Urine WBC (0-4) /HPF Ur Squamous Epith Cells /LPF Urine Bacteria /LPF Blood Type A Positive Antibody Screen NEGATIVE Discharge Plan Discharge Clinical Impression: Vomiting, Acute dehydration, UTI (urinary tract infection) Patient Disposition: Home, Self-Care Instructions: Acute Nausea and Vomiting (ED), Urinary Tract Infection in Women (ED) Prescriptions: No Action multivitamin Tablet 1 tab PO DAILY RF: 0 ferrous sulfate 325 mg (65 mg iron) tablet 325 mg PO DAILY Qty: 30 RF: 0 (DME) Ultra-Light Rollator Misc See Rx Instructions .ROUTE .MEDSUPPLY Qty: 1 RF: 0 gabapentin 600 mg tablet 600 mg PO TID RF: 0 tizanidine 4 mg tablet 4 mg PO Q8H PRN (Reason: muscle spasm) RF: 0 clonazepam 1 mg tablet 0.5 tab PO TID PRN (Reason: Anxiety) RF: 0 oxycodone-acetaminophen 5-325 mg tablet 1 tab PO Q8H PRN (Reason: pain) RF: 0 dextroamphetamine-amphetamine 10 mg capsule,extended release 24hr 10 mg PO QAM RF: 0 dextroamphetamine-amphetamine 30 mg capsule,extended release 24hr 30 mg PO QAM RF: 0 buspirone 15 mg tablet 15 mg PO BID RF: 0 Trintellix 20 mg tablet 20 mg PO QAM RF: 0 apixaban 2.5 mg tablet 2.5 mg PO BID RF: 0 norethindrone (contraceptive) 0.35 mg tablet 0.35 mg PO DAILY Qty: 28 RF: 1
[2020-10-19 22:45] VITALS: BP 141/86; PULSE 62; RESP 14; O2SAT 99
[2020-10-19 23:11] LABS: Basophils Percent Auto 0.2 % (0-2); Eosinophils Percent Auto 0.2 % (0-4); Hematocrit 39.7 % (37-47); Hemoglobin 12.9 g/dl (12.0-16.0); Imm Gran Abs Auto 0.02 X10*3/uL (0.00-0.03); Imm Gran Pct Auto 0.2 % (0.0-0.4); Lymphocytes Absolute Auto 2.1 X10*3/uL (1.2-4.9); Lymphocytes Percent Auto 20.9 % (20-40); MANUAL DIFF FLAG NO; Mean Corpuscular HGB Conc 32.5 g/dl (31.0-35.0); Mean Corpuscular Hemoglobin 28.2 pg (27.0-33.0); Mean Corpuscular Volume 86.9 fL (80-98); Mean Platelet Volume 9.6 fL (9.4-12.3); Monocytes Absolute Auto 0.6 X10*3/uL (0.1-1.2); Monocytes Percent Auto 6.4 % (2-11); Neutrophils Absolute Auto 7.1 X10*3/uL (2.0-8.3); Neutrophils Percent Auto 72.1 % (45-73); Platelet Count 401 X10*3/uL (160-400); Red Blood Count 4.57 X10*6/uL (4.20-5.50); Red Cell Distribution Width 13.3 % (11.0-16.0); White Blood Count 9.9 X10*3/uL (4.8-10.8)
[2020-10-19 23:19] LABS: Glucose Urine UA NEG (NEG); Leukocyte Esterase Urine TRACE (NEG); Nitrite Urine NEG (NEG); Urine Blood 3+ (NEG); Urine Ketones >=80 MG/DL (NEG); Urine Protein 2+ MG/DL (NEG-TRACE)
[2020-10-19 23:32] LABS: Appearance Urine HAZY; Color Urine YELLOW
[2020-10-19 23:34] LABS: Alanine Aminotransferase 9 U/L (0-31); Alkaline Phosphatase 55 U/L (39-117); Anion Gap 16 (12-20); Aspartate Amino Transferase 14 U/L (5-31); Bilirubin Total 0.9 mg/dL (0.0-1.0); Blood Urea Nitrogen 5 mg/dL (9-16); Calcium 9.3 mg/dL (8.4-10.2); Carbon Dioxide 26 mmol/L (22-29); Chloride 102 mmol/L (96-108); Creatinine Clr Calc Pharmacy 89.3; Estimated Glomerular Filt Rate > 60; Glucose Random 96 mg/dL (60-115); Lipase 33 U/L (8-78); Potassium 3.5 mmol/l (3.3-5.1); Sodium 140 mmol/L (135-145); Total Protein 8.1 g/dL (6.5-8.0)
[2020-10-19 23:35] LABS: Squamous Epithelial Cell Urine 3+ /LPF
[2020-10-19 23:36] LABS: Bacteria Urine 3+ /LPF
[2020-10-19] MEDS: 0.9 % Sodium Chloride 1,000 ML 999 ML IV (23:52)
[2020-10-19] MEDS: ondansetron HCL 4 MG/2 ML VIAL IVPUSH (23:52)
--- NOTE | 2020-10-19 23:52 | PC.NURSE ---
20G IV ACCESS ESTABLISHED IN RIGHT AC. LABS PREVIOUSLY DRAWN AND SENT FOR ANALYSIS. PATIENT MEDICATED PER MD ORDER WITH NORMAL SALINE AND ZOFRAN FOR NAUSEA. PATIENT HAS NOT VOMITTED SINCE ARRIVAL TO ED. WILL CONTINUE TO MONITOR.
[2020-10-20] VITALS: BP 132/87; PULSE 66; RESP 18; O2SAT 99
== END 2020-10-20 01:00 | disposition home or self-care (01) ==
PROVIDERS: Emergency Provider Emergency Medicine Emergency Medical Services
DX: N39.0 Urinary tract infection, site not specified (principal); E86.0 Dehydration; R44.1 Visual hallucinations; R11.2 Nausea with vomiting, unspecified; M54.2 Cervicalgia; R42 Dizziness and giddiness; Z79.899 Other long term (current) drug therapy; Z79.01 Long term (current) use of anticoagulants
CPT/HCPCS: 36415; 70450; 80053; 81001; 81003; 83690; 85025; 86850; 86900; 86901; 87086; 93005; 96361; 96374; 99284; J2405

== ENCOUNTER → 2020-12-03 13:14 | Outpatient (REF) | payer OTHER, SELFPAY ==
--- NOTE | 2020-12-03 13:18 | ECG_ITS ---
Hook-up date: 2020-12-03 13:26:00 Duration: 47:57:00 Test Indications: SYNCOPE AND COLLAPSE Medications: 82019 QRS complexes 19 Ventricular ectopics which represent <1 % of total QRS comp. 5 Supraventricular ectopics which represent <1 % of total QRS comp. * Paced QRS complexs which represent % of total QRS comp. VENTRICULAR ECTOPY 19 Isolated 0 Bigeminal Cycles 0 Couplets 0 Runs 0 Beats in Runs * Beats LONGEST at * BPM at :: -- * Beats FASTEST at * BPM at :: -- SUPRAVENTRICULAR ECTOPY 0 Isolated 0 Couplets 1 Runs 5 Beats in Runs 5 Beats LONGEST at 91 BPM at 21:10:06 2020-12-03 5 Beats FASTEST at 91 BPM at 21:10:06 2020-12-03 HEART RATES 39 MIN at 01:29:46 2020-12-04 59 AVG 135 MAX at 10:32:53 2020-12-04 LONGEST RR 1.5680 secs at 01:29:40 2020-12-04 S-T LEVELS Channel 1 - 128 mm at 13:26:00 2020-12-03 - 128 mm at 13:26:00 2020-12-03 Channel 2 - 128 mm at 13:26:00 2020-12-03 - 128 mm at 13:26:00 2020-12-03 Channel 3 - 128 mm at 03:24:51 -- - 128 mm at 03:24:51 Basic rhythm Normal sinus rhythm No long pauses Frequent Sinus bradycardia , 61% of time HR < 60 bpm Rare Premature atrial complexes Patient reported symptom of partial syncope correlated with NSR Referred By: James Ledesma Overread By: ALEKS KELLEY MD
== END ==
LOC: HO.CARD 13:14
PROVIDERS: Visit Provider Internal Medicine
DX: R55 Syncope and collapse (principal)
CPT/HCPCS: 93225; 93226

== ENCOUNTER → 2021-02-06 09:47 | Outpatient (REF) | payer OTHER, SELFPAY ==
--- NOTE | 2021-02-06 09:51 | CA_ITS ---
Acquisition Time: 2021-02-06 09:59:33 Total Exercise Time: 00:06:49 Test Indications: Abnormal ECG Medications: APIXABAN BUSPIRONE CLONAZAPAM GABAPENTIN TIZANIDINE TRINTELLEX Protocol: ADENIKE Max HR: 157 BPM 88% of Pred: 177 BPM Max BP: 134/070 mmHG Max Work Load: 8.1 METS Exercise stress test using Adenike protocol, total of 6 min 49 sec. METS 8.10, TAPHR up to 88 %. Pt tolerated well, denies any anginal sx. EKG without any arrhythmias, no ischemic changes seen during exercise or in recovery. Normotensive response to exercise. Test reviewed with Dr. Menezes. Referred By: James Ledesma Overread By: Saida Fraser NP
== END ==
LOC: HO.CARD 09:47
PROVIDERS: Visit Provider Internal Medicine
DX: R55 Syncope and collapse (principal)
CPT/HCPCS: 93017; 93018

== ENCOUNTER → 2021-02-08 10:24 | Outpatient (BNVA) | payer OTHER, SELFPAY | PROVIDERS: PCP Internal Medicine; Visit Provider Obstetrics & Gynecology | DX: Z30.431 Encounter for routine checking of intrauterine contraceptive device (principal); N93.9 Abnormal uterine and vaginal bleeding, unspecified | CPT/HCPCS: 99212 ==

== ENCOUNTER 2021-02-13 18:23 | Emergency (ER) | payer OTHER, SELFPAY ==
[2021-02-13 19:12] VITALS: BP 96/55; PULSE 51; RESP 16; TEMP 36.6; O2SAT 98; BMI 26.6
--- NOTE | 2021-02-13 22:43 | ED_ITS ---
HPI - Female Genitourinary General Chief complaint: Urogenital-Female Stated complaint: bleeding, on blood thinner Time Seen by Provider: 02/13/21 22:13 Source: patient Mode of arrival: ambulatory History of Present Illness HPI Narrative: 45-year-old female with significant past medical history of Erhler Danlos, PE secondary to control and currently on Eliquis who presents with heavy menstrual bleeding that has worsened over the past 2-3 days, the patient states she has been bleeding since October despite having the Mirena placed. She states she has been offered ablation and plans to discuss further with her physician. However, she comes in today with increasing feelings of fatigue but denies any shortness of breath, chest pain/palpitations, GI symptoms, or symptoms. In addition, patient complaints of multiple bruising across her thighs and endorses she does have an autistic 5-year-old child, but does not feel that there has been additional physical of events that may have contributed to the bruising on her thighs. Related Data Home Medications Medication Instructions Recorded Confirmed Trintellix 20 mg PO QAM 08/29/20 02/06/21 buspirone 15 mg PO BID 08/29/20 02/06/21 clonazepam 0.5 tab PO TID PRN 08/29/20 02/06/21 dextroamphetamine-amphetamine 10 mg PO QAM 08/29/20 02/06/21 dextroamphetamine-amphetamine 30 mg PO QAM 08/29/20 02/06/21 gabapentin 600 mg PO TID 08/29/20 02/06/21 oxycodone-acetaminophen 1 tab PO Q8H PRN 08/29/20 02/06/21 tizanidine 4 mg PO Q8H PRN 08/29/20 02/06/21 levonorgestrel [Mirena] VAGINAL ONCE 02/06/21 02/06/21 Previous Rx's Medication Instructions Recorded walker [Ultra-Light Rollator] #1 ea 10/06/20 ondansetron 4 mg PO Q6-8H PRN #14 tab 10/20/20 apixaban 2.5 mg PO BID #180 tab 02/04/21 Allergies Allergy/AdvReac Type Severity Reaction Status Date / Time erythromycin base Allergy Severe PANCREATITI Verified 10/18/20 10:23 [ERYTHROMYCIN BASE] S Penicillins [PCN] Allergy Severe HIVES Verified 10/18/20 10:23 Review of Systems Review of Systems: Pertinent positives and negatives as stated in HPI 10 point review of systems is otherwise negative. [facility] Past Medical History Source: nursing notes reviewed Medical History EDS (Juan-Danlos syndrome) Menorrhagia Oral contraceptive use Pulmonary embolism Subchondral sclerosis Subchondral sclerosis Syncope and collapse Surgical History H/O knee surgery H/O shoulder surgery Family History Family History Paternal Aunt Breast cancer Father Diabetes High cholesterol HTN (hypertension) Maternal Uncle Stroke Maternal Grandfather Emphysema lung Lung cancer Maternal Grandmother Asthma Son Asthma Social History Social History Household Members: Children Housing: Apartment Alcohol intake: never Smoking Status: Never smoker Second Hand Smoke Exposure: No Advance Directives: No Advance Directives Information Provided: Yes Patient : No service: No Current occupational status: unemployed Physical Exam Vital Signs: Vital Signs: Last Vital Signs Temp 97.9 F 02/13/21 19:12 Pulse 51 02/13/21 19:12 Resp 16 02/13/21 19:12 BP 96/55 L 02/13/21 19:12 Pulse Ox 98 02/13/21 19:12 Body Mass Index 26.6 VITAL SIGNS: Reviewed. GENERAL: Well developed, well nourished, in no acute distress. HEAD: Normocephalic/atraumatic, EYES: PERRLA, EOMI, pale conjunctiva OROPHARYNX: no oral lesions noted, posterior pharynx clear NECK: Supple, no adenopathy LUNGS: Normal breath sounds. No adventitious sounds or accessory muscle use. SpO2<98> CARDIOVASCULAR: Regular rate and rhythm without noted murmurs ABDOMEN: Soft, non-tender, non-distended with bowel sounds. BILATERAL THIGHS: Patient does have scattered bruising noted to bilateral upper thighs (left> right) that appear to be in different stages of healing as there is noted yellowing along the edges without any skin breaks SKIN: Inspection of the skin reveals no rashes, ulcerations, jaundice, pallor, or petechiae. NEUROLOGIC: Alert and oriented x 4. Course Course Course Narrative: 45-year-old female with history and clinical presentation consistent with menorrhagia likely secondary to anticoagulation, but will rule out the need for transfusion. Review of all investigations and on re-evaluation there are no acute findings from chronic baseline and patient feels better after having received the IV fluid resuscitation. All results and findings were discussed with her bedside and she was strongly encouraged to consider the ablation therapy for her menorrhagia. She was encouraged to follow up tomorrow morning with her outpatient providers. MDM - Female Genitourinary Lab Data Result diagrams: 02/13/21 23:11 02/13/21 23:11 Labs: Lab Results 02/13/21 02/13/21 02/13/21 Range/Units 23:07 23:07 23:11 WBC 6.9 (4.8-10.8) X10*3/uL RBC 4.15 L (4.20-5.50) X10*6/uL Hgb 11.9 L (12.0-16.0) g/dl Hct 37.2 (37-47) % MCV 89.6 (80-98) fL MCH 28.7 (27.0-33.0) pg MCHC 32.0 (31.0-35.0) g/dl RDW 12.7 (11.0-16.0) % Plt Count 281 (160-400) X10*3/uL MPV 9.2 L (9.4-12.3) fL Immature Gran % (Auto) 0.1 (0.0-0.4) % Neut % (Auto) 40.3 L (45-73) % Lymph % (Auto) 49.6 H (20-40) % [place] % (Auto) 7.2 (2-11) % Eos % (Auto) 2.7 (0-4) % Baso % (Auto) 0.1 (0-2) % Lymph # (Auto) 3.4 (1.2-4.9) X10*3/uL [place] # (Auto) 0.5 (0.1-1.2) X10*3/uL Eos # (Auto) 0.2 (0.0-0.4) X10*3/uL Baso # (Auto) 0.0 (0.0-0.2) X10*3/uL Abs Immat Gran (auto) 0.01 (0.00-0.03) X10*3/uL Absolute Neuts (auto) 2.8 (2.0-8.3) X10*3/uL Absolute Nucleated RBC 0.000 (0.0-0.012) X10*3/uL Nucleated RBC % (auto) 0.0 (0.0-0.2) /100WBC PT (10.8-13.0) SEC INR (0.9-1.1) Sodium (135-145) mmol/L Potassium (3.3-5.1) mmol/L Chloride (96-108) mmol/L Carbon Dioxide (22-29) mmol/L Anion Gap (12-20) BUN (9-16) mg/dL Creatinine (0.5-1.4) mg/dL Estim Creat Clear Calc Estimated GFR Random Glucose (60-115) mg/dL Calcium (8.4-10.2) mg/dL Total Bilirubin (0.0-1.0) mg/dL AST (5-31) U/L ALT (0-31) U/L Alkaline Phosphatase (39-117) U/L Total Protein (6.5-8.0) g/dL Albumin (3.5-5.0) g/dL Urine Color YELLOW Urine Appearance CLEAR Urine pH 5.5 (5.0-8.0) Ur Specific [place] >= 1.030 H (1.005-1.025) Urine Protein NEG (NEG-TRACE) MG/DL Urine Glucose (UA) NEG (NEG) MG/DL Urine Ketones NEG (NEG) MG/DL Urine Blood 3+ H (NEG) Urine Nitrite NEG (NEG) Ur Leukocyte Esterase TRACE H (NEG) Urine RBC 5-9 H (0) /HPF Urine WBC 15-29 H (0-4) /HPF Ur Squamous Epith Cells 1+ /LPF Urine Bacteria 2+ /LPF Urine Mucus 1+ /LPF Urine Test NEGATIVE (NEGATIVE) 02/13/21 02/13/21 Range/Units 23:11 23:11 WBC (4.8-10.8) X10*3/uL RBC (4.20-5.50) X10*6/uL Hgb (12.0-16.0) g/dl Hct (37-47) % MCV (80-98) fL MCH (27.0-33.0) pg MCHC (31.0-35.0) g/dl RDW (11.0-16.0) % Plt Count (160-400) X10*3/uL MPV (9.4-12.3) fL Immature Gran % (Auto) (0.0-0.4) % Neut % (Auto) (45-73) % Lymph % (Auto) (20-40) % [place] % (Auto) (2-11) % Eos % (Auto) (0-4) % Baso % (Auto) (0-2) % Lymph # (Auto) (1.2-4.9) X10*3/uL [place] # (Auto) (0.1-1.2) X10*3/uL Eos # (Auto) (0.0-0.4) X10*3/uL Baso # (Auto) (0.0-0.2) X10*3/uL Abs Immat Gran (auto) (0.00-0.03) X10*3/uL Absolute Neuts (auto) (2.0-8.3) X10*3/uL Absolute Nucleated RBC (0.0-0.012) X10*3/uL Nucleated RBC % (auto) (0.0-0.2) /100WBC PT 12.0 (10.8-13.0) SEC INR 1.0 (0.9-1.1) Sodium 138 (135-145) mmol/L Potassium 4.3 (3.3-5.1) mmol/L Chloride 104 (96-108) mmol/L Carbon Dioxide 29 (22-29) mmol/L Anion Gap 9 L (12-20) BUN 17 H (9-16) mg/dL Creatinine 0.87 (0.5-1.4) mg/dL Estim Creat Clear Calc 80.2 Estimated GFR > 60 Random Glucose 97 (60-115) mg/dL Calcium 8.8 (8.4-10.2) mg/dL Total Bilirubin 0.5 (0.0-1.0) mg/dL AST 18 (5-31) U/L ALT 6 (0-31) U/L Alkaline Phosphatase 58 (39-117) U/L Total Protein 7.5 (6.5-8.0) g/dL Albumin 4.4 (3.5-5.0) g/dL Urine Color Urine Appearance Urine pH (5.0-8.0) Ur Specific [place] (1.005-1.025) Urine Protein (NEG-TRACE) MG/DL Urine Glucose (UA) (NEG) MG/DL Urine Ketones (NEG) MG/DL Urine Blood (NEG) Urine Nitrite (NEG) Ur Leukocyte Esterase (NEG) Urine RBC (0) /HPF Urine WBC (0-4) /HPF Ur Squamous Epith Cells /LPF Urine Bacteria /LPF Urine Mucus /LPF Urine Test (NEGATIVE) Discharge Plan Discharge Clinical Impression: Menorrhagia Patient Disposition: Home, Self-Care Instructions: Menorrhagia (ED) Additional Instructions: 1. Resume all home medications as prescribed. 2. Continue to drink plenty of fluids especially water. 3. Please follow-up with your primary care provider and/or air table operator for further discussion regarding next steps as it pertains to your heavy menstrual cycles. Do not hesitate to return to the emergency department for any acute worsening of your symptoms. Prescriptions: No Action apixaban 2.5 mg tablet 2.5 mg PO BID Qty: 180 RF: 4 (DME) Ultra-Light Rollator Misc See Rx Instructions .ROUTE .MEDSUPPLY Qty: 1 RF: 0 gabapentin 600 mg tablet 600 mg PO TID RF: 0 tizanidine 4 mg tablet 4 mg PO Q8H PRN (Reason: muscle spasm) RF: 0 clonazepam 1 mg tablet 0.5 tab PO TID PRN (Reason: Anxiety) RF: 0 oxycodone-acetaminophen 5-325 mg tablet 1 tab PO Q8H PRN (Reason: pain) RF: 0 dextroamphetamine-amphetamine 10 mg capsule,extended release 24hr 10 mg PO QAM RF: 0 dextroamphetamine-amphetamine 30 mg capsule,extended release 24hr 30 mg PO QAM RF: 0 buspirone 15 mg tablet 15 mg PO BID RF: 0 Trintellix 20 mg tablet 20 mg PO QAM RF: 0 Mirena 20 mcg/24 hours (6 yrs) 52 mg intrauterine device vaginal ONCE RF: 0 ondansetron 4 mg tablet,disintegrating 4 mg PO Q6-8H PRN (Reason: nausea and vomiting) Qty: 14 RF: 0 Referrals: Frances Sung DO [Primary Care Provider] - 2 days (Re-evaluation and discussion regarding heavy menstrual bleeding secondary to anticoagulative therapy.)
[2021-02-13] MEDS: 0.9 % Sodium Chloride 1,000 ML 999 ML IV (23:15)
[2021-02-13 23:20] LABS: MANUAL DIFF FLAG NO
[2021-02-13 23:21] LABS: Basophils Percent Auto 0.1 % (0-2); Eosinophils Absolute Auto 0.2 X10*3/uL (0.0-0.4); Eosinophils Percent Auto 2.7 % (0-4); Hematocrit 37.2 % (37-47); Hemoglobin 11.9 g/dl (12.0-16.0); Imm Gran Abs Auto 0.01 X10*3/uL (0.00-0.03); Imm Gran Pct Auto 0.1 % (0.0-0.4); Lymphocytes Absolute Auto 3.4 X10*3/uL (1.2-4.9); Lymphocytes Percent Auto 49.6 % (20-40); Mean Corpuscular Hemoglobin 28.7 pg (27.0-33.0); Mean Corpuscular Volume 89.6 fL (80-98); Mean Platelet Volume 9.2 fL (9.4-12.3); Monocytes Absolute Auto 0.5 X10*3/uL (0.1-1.2); Monocytes Percent Auto 7.2 % (2-11); Neutrophils Absolute Auto 2.8 X10*3/uL (2.0-8.3); Neutrophils Percent Auto 40.3 % (45-73); Platelet Count 281 X10*3/uL (160-400); Red Blood Count 4.15 X10*6/uL (4.20-5.50); Red Cell Distribution Width 12.7 % (11.0-16.0); White Blood Count 6.9 X10*3/uL (4.8-10.8)
[2021-02-13 23:22] LABS: Glucose Urine UA NEG (NEG); Leukocyte Esterase Urine TRACE (NEG); Nitrite Urine NEG (NEG); PH 5.5 (5.0-8.0); Specific Gravity - Urine >= 1.030 (1.005-1.025); UACC Culture Trigger YES; Urine Blood 3+ (NEG); Urine Ketones NEG (NEG); Urine Protein NEG (NEG-TRACE)
[2021-02-13 23:24] LABS: UPreg QC Valid YES; Urine Pregnancy NEGATIVE (NEGATIVE)
[2021-02-13 23:29] LABS: Appearance Urine CLEAR; Color Urine YELLOW
[2021-02-13 23:30] LABS: Bacteria Urine 2+ /LPF; Mucus Urine 1+ /LPF; Squamous Epithelial Cell Urine 1+ /LPF
[2021-02-13 23:50] LABS: Alanine Aminotransferase 6 U/L (0-31); Albumin Level 4.4 g/dL (3.5-5.0); Alkaline Phosphatase 58 U/L (39-117); Aspartate Amino Transferase 18 U/L (5-31); Bilirubin Total 0.5 mg/dL (0.0-1.0); Blood Urea Nitrogen 17 mg/dL (9-16); Calcium 8.8 mg/dL (8.4-10.2); Creatinine Clr Calc Pharmacy 80.2; Estimated Glomerular Filt Rate > 60; Glucose Random 97 mg/dL (60-115); Total Protein 7.5 g/dL (6.5-8.0)
[2021-02-14] LABS: Anion Gap 9 (12-20); Carbon Dioxide 29 mmol/L (22-29); Chloride 104 mmol/L (96-108); Potassium 4.3 mmol/L (3.3-5.1); Sodium 138 mmol/L (135-145)
[2021-02-14 01:21] VITALS: BP 108/55; PULSE 87; RESP 16; O2SAT 97
== END 2021-02-14 01:38 | disposition home or self-care (01) ==
PROVIDERS: Emergency Provider Student in an Organized Health Care Education/Training Program; PCP Internal Medicine
DX: N92.0 Excessive and frequent menstruation with regular cycle (principal); Z79.01 Long term (current) use of anticoagulants; Z79.899 Other long term (current) drug therapy
CPT/HCPCS: 36415; 80053; 81001; 81003; 81025; 85025; 85610; 87086; 99284

== ENCOUNTER 2021-03-12 12:30 | Emergency (ER) | payer OTHER, SELFPAY ==
--- NOTE | ~2021-03-12 | XR_ITS ---
EXAMINATION: XR HAND, RIGHT CLINICAL INFORMATION: Trauma, pain COMPARISON: None TECHNIQUE: PA, lateral, and oblique views of the right hand. FINDINGS: There is a oblique fracture involving the distal shaft and neck right fifth metacarpal. There is mild overlap of the fracture fragments and mild medial displacement distal fracture fragment with dorsal angulation at fracture site. A few small comminuted osseous foci are present at the fracture site. There is no dislocation or destructive process. XR/XR hand RT min 3V IMPRESSION: Displaced oblique fracture distal shaft and neck right fifth metacarpal with mild comminution. No dislocation or destructive process.
[2021-03-12 13:20] VITALS: BP 97/67; PULSE 62; RESP 18; TEMP 36.3; O2SAT 99; BMI 27.4
--- NOTE | 2021-03-12 14:14 | ED.EXTPRO ---
HPI - Extremity Problem General Chief complaint: Extremity Injury, Upper Stated complaint: rt hand inj Time Seen by Provider: 03/12/21 13:35 History of Present Illness HPI Narrative: Patient complains of right hand pain after punching the wall several days ago after getting some bad news, no other injury, no numbness weakness or tingling Related Data Home Medications Medication Instructions Recorded Confirmed Trintellix 20 mg PO QAM 08/29/20 02/06/21 buspirone 15 mg PO BID 08/29/20 02/06/21 clonazepam 0.5 tab PO TID PRN 08/29/20 02/06/21 dextroamphetamine-amphetamine 10 mg PO QAM 08/29/20 02/06/21 dextroamphetamine-amphetamine 30 mg PO QAM 08/29/20 02/06/21 gabapentin 600 mg PO TID 08/29/20 02/06/21 oxycodone-acetaminophen 1 tab PO Q8H PRN 08/29/20 02/06/21 tizanidine 4 mg PO Q8H PRN 08/29/20 02/06/21 levonorgestrel [Mirena] VAGINAL ONCE 02/06/21 02/06/21 Previous Rx's Medication Instructions Recorded walker [Ultra-Light Rollator] #1 ea 10/06/20 ondansetron 4 mg PO Q6-8H PRN #14 tab 10/20/20 apixaban 2.5 mg PO BID #180 tab 02/04/21 oxycodone-acetaminophen 1 - 2 tab PO Q6H PRN #30 tab 03/19/21 oxycodone 5 mg capsule 5 mg PO Q6H PRN #20 cap 03/20/21 Allergies Allergy/AdvReac Type Severity Reaction Status Date / Time erythromycin base Allergy Severe PANCREATITI Verified 03/13/21 13:24 [ERYTHROMYCIN BASE] S Penicillins [PCN] Allergy Severe HIVES Verified 03/13/21 13:24 Review of Systems Review of Systems: Positive for right hand pain Negatives are no headache no neck pain no back pain no numbness weakness or tingling no laceration Yes all other systems are reviewed and are negative PMFSH Past Medical History Source: nursing notes reviewed Medical History EDS (Juan-Danlos syndrome) Menorrhagia Oral contraceptive use Pulmonary embolism Subchondral sclerosis Subchondral sclerosis Syncope and collapse Surgical History H/O knee surgery H/O shoulder surgery Family History Family History Paternal Aunt Breast cancer Father Diabetes High cholesterol HTN (hypertension) Maternal Uncle Stroke Maternal Grandfather Emphysema lung Lung cancer Maternal Grandmother Asthma Son Asthma Social History Social History Household Members: Children Housing: Apartment Do you presently have visiting nurse or other home services: Yes (home health aid for housekeeping) Alcohol intake: never Patient Tobacco Use Status: Never used Tobacco Second Hand Smoke Exposure: No Use of substances other than those prescribed or required for medical reasons: Yes Substance Use Type: Marijuana Substance Use Type Other:: Medical marijuana Substance Use Frequency: Occasionally Advance Directives: No Advance Directives Information Provided: No Patient : No service: No Current occupational status: unemployed Current occupation: right handed Physical Exam Vital Signs: Vital Signs: Last Vital Signs Temp 97.3 F 03/12/21 13:20 Pulse 62 03/12/21 13:20 Resp 18 03/12/21 13:20 BP 97/67 03/12/21 13:20 Pulse Ox 99 03/12/21 13:20 Body Mass Index 27.4 General appearance is no acute distress Head is normocephalic atraumatic Neck is supple Respiratory no distress The right hand exam showed tenderness and swelling in the dorsal right hand ulnar aspect, neurovascular intact distal, skin is intact and normal Other extremities normal Skin no rash Neuro no gross motor sensory deficits Course Course Course Narrative: X-ray showed a 5th metatarsal fracture on the right side Tech placed ulnar gutter splint and re-evaluation post application showed neurovascular intact Plans follow with orthopedic hand specialist and patient is given a referral Discharge Plan Discharge Clinical Impression: Hand fracture, right Patient Disposition: Home, Self-Care Additional Instructions: X-ray showed a broken bone in the hand so you will need to follow-up with hand doctor Leave splint in place and call Hand doctor today or tomorrow morning to make an appointment Return any time any concerns Prescriptions: No Action apixaban 2.5 mg tablet 2.5 mg PO BID Qty: 180 RF: 4 oxycodone 5 mg capsule 5 mg PO Q6H PRN (Reason: pain) Qty: 20 RF: 0 (DME) Ultra-Light Rollator Misc See Rx Instructions .ROUTE .MEDSUPPLY Qty: 1 RF: 0 oxycodone-acetaminophen 5-325 mg tablet 1 - 2 tab PO Q6H PRN (Reason: pain) Qty: 30 RF: 0 gabapentin 600 mg tablet 600 mg PO TID RF: 0 tizanidine 4 mg tablet 4 mg PO Q8H PRN (Reason: muscle spasm) RF: 0 clonazepam 1 mg tablet 0.5 tab PO TID PRN (Reason: Anxiety) RF: 0 oxycodone-acetaminophen 5-325 mg tablet 1 tab PO Q8H PRN (Reason: pain) RF: 0 dextroamphetamine-amphetamine 10 mg capsule,extended release 24hr 10 mg PO QAM RF: 0 dextroamphetamine-amphetamine 30 mg capsule,extended release 24hr 30 mg PO QAM RF: 0 buspirone 15 mg tablet 15 mg PO BID RF: 0 Trintellix 20 mg tablet 20 mg PO QAM RF: 0 Mirena 20 mcg/24 hours (6 yrs) 52 mg intrauterine device vaginal ONCE RF: 0 ondansetron 4 mg tablet,disintegrating 4 mg PO Q6-8H PRN (Reason: nausea and vomiting) Qty: 14 RF: 0 Referrals: Nereida Vazquez MD [Physician] - 2 days (Right hand 5th metacarpal fracture) Interventions: ED Discharge Assessment Last Done: 03/12/21 14:40 Discharge Date/Time: 03/12/21 14:43
== END 2021-03-12 14:43 | disposition home or self-care (01) ==
PROVIDERS: Emergency Provider Emergency Medicine; PCP Internal Medicine
DX: S62.91XA Unspecified fracture of right hand, initial encounter for closed fracture (principal); S62.101A Fracture of unspecified carpal bone, right wrist, initial encounter for closed fracture; M79.641 Pain in right hand; X58.XXXA Exposure to other specified factors, initial encounter; Y93.9 Activity, unspecified; Y92.009 Unspecified place in unspecified non-institutional (private) residence as the place of occurrence of the external cause; Y99.9 Unspecified external cause status; Z79.899 Other long term (current) drug therapy
CPT/HCPCS: 29130; 73130; 99283

== ENCOUNTER → 2021-03-13 13:14 | Outpatient (BNVA) | payer OTHER, SELFPAY | PROVIDERS: Visit Provider Physician Assistant | DX: S62.308A Unspecified fracture of other metacarpal bone, initial encounter for closed fracture (principal) | CPT/HCPCS: 99212 ==

== ENCOUNTER 2021-03-19 11:24 | Day surgery (SDC) | payer OTHER, SELFPAY ==
--- NOTE | 2021-03-18 10:55 | HO.ANESPROP2 ---
Documented by User: Eugenie Loo 03/18/21 10:57 HPI - Anesthesia Eval Consult details Narrative: 45yo F for Right 5th Metacarpal ORIF vs Closed Reduction with Fixation Recent negative cardiac work up after syncopal episode and dx of Juan Danlos Eliquis for PE 08/2020 opioids prn PMFSH Active Problems Active Problems: All Active Problems (Updated 03/13/21 @ 15:01 by Fernie North PA-C) Fracture of fifth metacarpal bone (Acute) Physical deconditioning (Acute) Left hip pain (Acute) H/O shoulder surgery (Chronic) Pulmonary embolism (Acute) Past Medical History Medical History EDS (Juan-Danlos syndrome) Menorrhagia Oral contraceptive use Pulmonary embolism Subchondral sclerosis Subchondral sclerosis Syncope and collapse Family History Family History Paternal Aunt Breast cancer Father Diabetes High cholesterol HTN (hypertension) Maternal Uncle Stroke Maternal Grandfather Emphysema lung Lung cancer Maternal Grandmother Asthma Son Asthma Surgical History Surgical History H/O knee surgery H/O shoulder surgery Social History Social History Household Members: Children Housing: Apartment Do you presently have visiting nurse or other home services: Yes (home health aid for housekeeping) Alcohol intake: never Patient Tobacco Use Status: Never used Tobacco Second Hand Smoke Exposure: No Use of substances other than those prescribed or required for medical reasons: Yes Substance Use Frequency: Daily Are you DNR?: No Advance Directives: No Advance Directives Information Provided: Yes service: No Current occupational status: unemployed Current occupation: right handed Meds Allergies Allergy/AdvReac Type Severity Reaction Status Date / Time erythromycin base Allergy Severe PANCREATITI Verified 03/13/21 13:24 [ERYTHROMYCIN BASE] S Penicillins [PCN] Allergy Severe HIVES Verified 03/13/21 13:24 Home Medications Medication Instructions Recorded Confirmed Last Taken Type Trintellix 20 mg PO QAM 08/29/20 02/06/21 10/04/20 History buspirone 15 mg PO BID 08/29/20 02/06/21 03/19/21 History clonazepam 0.5 tab PO TID PRN 08/29/20 02/06/21 10/04/20 History dextroamphetamine-amphetamine 10 mg PO QAM 08/29/20 02/06/21 10/04/20 History dextroamphetamine-amphetamine 30 mg PO QAM 08/29/20 02/06/21 10/04/20 History gabapentin 600 mg PO TID 08/29/20 02/06/21 03/19/21 History oxycodone-acetaminophen 1 tab PO Q8H PRN 08/29/20 02/06/21 03/19/21 History tizanidine 4 mg PO Q8H PRN 08/29/20 02/06/21 03/19/21 History levonorgestrel [Mirena] VAGINAL ONCE 02/06/21 02/06/21 Unknown History Exam Exam Date and Time: March 18, 2021 1055 Pertinent Lab Results Pertinent Lab Results: Laboratory Tests 02/13/21 02/13/21 23:11 23:11 WBC 6.9 Hgb 11.9 L Hct 37.2 Plt Count 281 Sodium 138 Potassium 4.3 Chloride 104 Carbon Dioxide 29 BUN 17 H Creatinine 0.87 Narrative Narrative: EKG 10/2020 Vent. Rate : 055 BPM Atrial Rate : 055 BPM P-R Int : 136 ms QRS Dur : 094 ms QT Int : 408 ms P-R-T Axes : 049 084 061 degrees QTc Int : 390 ms Sinus bradycardia Anterior T wave inverions - consider ischemia abnormal ECG When compared to the previous EKG of Anterior T wave inversions are more prominent Holter 11/2020 Basic rhythm Normal sinus rhythm No long pauses Frequent Sinus bradycardia , 61% of time HR < 60 bpm Rare Premature atrial complexes Patient reported symptom of partial syncope correlated with NSR ECHO 09/2020 Conclusions: - Low normal LV systolic function otherwise normal study Stress 01/2021 Exercise stress test using Louie protocol, total of 6 min 49 sec. METS 8.10, TAPHR up to 88 %. Pt tolerated well, denies any anginal sx. EKG without any arrhythmias, no ischemic changes seen during exercise or in recovery. Normotensive response to exercise. Test reviewed with Dr. Menezes. Assessment and Plan Assessment Anesthesia Assessment: Chart Reviewed Documented by User: Jeffery Monk 03/19/21 15:47 [facility] Past Medical History Medical History EDS (Juan-Danlos syndrome) Menorrhagia Oral contraceptive use Pulmonary embolism Subchondral sclerosis Subchondral sclerosis Syncope and collapse Family History Family History Paternal Aunt Breast cancer Father Diabetes High cholesterol HTN (hypertension) Maternal Uncle Stroke Maternal Grandfather Emphysema lung Lung cancer Maternal Grandmother Asthma Son Asthma Surgical History Surgical History H/O knee surgery H/O shoulder surgery Social History Social History Household Members: Children Housing: Apartment Do you presently have visiting nurse or other home services: Yes (home health aid for housekeeping) Alcohol intake: never Patient Tobacco Use Status: Never used Tobacco Second Hand Smoke Exposure: No Use of substances other than those prescribed or required for medical reasons: Yes Substance Use Frequency: Daily Are you DNR?: No Advance Directives: No Advance Directives Information Provided: Yes service: No Current occupational status: unemployed Current occupation: right handed Meds Allergies Allergy/AdvReac Type Severity Reaction Status Date / Time erythromycin base Allergy Severe PANCREATITI Verified 03/13/21 13:24 [ERYTHROMYCIN BASE] S Penicillins [PCN] Allergy Severe HIVES Verified 03/13/21 13:24 Home Medications Medication Instructions Recorded Confirmed Last Taken Type Trintellix 20 mg PO QAM 08/29/20 02/06/21 10/04/20 History buspirone 15 mg PO BID 08/29/20 02/06/21 03/19/21 History clonazepam 0.5 tab PO TID PRN 08/29/20 02/06/21 10/04/20 History dextroamphetamine-amphetamine 10 mg PO QAM 08/29/20 02/06/21 10/04/20 History dextroamphetamine-amphetamine 30 mg PO QAM 08/29/20 02/06/21 10/04/20 History gabapentin 600 mg PO TID 08/29/20 02/06/21 03/19/21 History oxycodone-acetaminophen 1 tab PO Q8H PRN 08/29/20 02/06/21 03/19/21 History tizanidine 4 mg PO Q8H PRN 08/29/20 02/06/21 03/19/21 History levonorgestrel [Mirena] VAGINAL ONCE 02/06/21 02/06/21 Unknown History Exam Airway Mallampati Class: II TM Dist: >3cm Neck ROM: Full Loose/Missing/Broken Teeth: Yes Heart: [id number] Lungs: cta b/l Assessment and Plan Assessment Anesthesia Assessment: Anesthesia Plan Discussed, PAT Visit and Chart Reviewed Final Anesthetic Review NPO: Yes ASA Class: III Final Preanesthetic Review: No Changes in Pt Med Stat, Meds/Allgs Chart Reviewed, Consent Obtained/Reviewed and Anes Risks/Benef Reviewed Patient Risk: Intermediate Procedure Risk: Low Assessment/Block/Sedation in SS: Assess/Block/Sedation-SS Anesthetic Plan Anesthetic Plan: GA and Agree w/ Assess. and Plan Disposition: Standard PACU
[2021-03-19] VITALS (12 sets, daily range): BP systolic 96–150; BP diastolic 56–97; PULSE 45–108; RESP 15–19; TEMP 35.9–36.3; O2SAT 97–100; BMI 26.6
--- NOTE | ~2021-03-19 | FL_ITS ---
EXAMINATION: XR FLUOROSCOPY WITH IMAGES CLINICAL INFORMATION: Right fifth metacarpal fracture COMPARISON: Previous x-ray 03/12/2021 TECHNIQUE: Fluoroscopy performed by George. Fluoroscopy time: 76 seconds DAP: [id number] Images: 5 FINDINGS: Images demonstrate 2 K wires across the fracture of the distal shaft of the fifth metacarpal bone with improved alignment. FL/FL guidance in OR IMPRESSION: Fluoroscopy guidance for ORIF of right fifth metacarpal fracture.
[2021-03-19 12:37] LABS: UPreg QC Valid YES; Urine Pregnancy NEGATIVE (NEGATIVE)
[2021-03-19] MEDS: Lactated Ringers 1,000 ML 100 ML IVCONT (13:09)
--- NOTE | 2021-03-19 13:16 | MHC.SHP ---
Pre-Procedural Eval Section B Chief Complaint: 5th metacarpal bone Allergies: Allergies Allergy/AdvReac Type Severity Reaction Status Date / Time erythromycin base Allergy Severe PANCREATITI Verified 03/13/21 13:24 [ERYTHROMYCIN BASE] S Penicillins [PCN] Allergy Severe HIVES Verified 03/13/21 13:24 Plan I have reviewed the history and physical and performed a pertinent physical examination on my patient. No changes have occurred unless specified.
--- NOTE | 2021-03-19 13:16 | W.PM.OPN ---
Operative Note Operative Note Date of Service: 03/19/21 Narrative: Operative Note Narrative: Preop diagnosis: 1. Right 5th Metacarpal shaft fracture Postop diagnosis: Same Procedure: 1. Right 5th Metacarpal fracture closed reduction percutaneous pinning 2. Ulnar nerve block Surgeon: Nereida Vazquez MD Anesthesia: General Findings: Metacarpal fracture Implants: 0.062 K-wires times 2 Tourniquet time: None EBL: Minimal Specimen: None Drains: None Complications: None Disposition: Brought to the recovery room in stable condition Plan: Follow-up in 10-14 days for a wound check, postop radiographs and for placement in a short-arm cast or splint Anticipate K-wire removal in 4 weeks based on interval bony healing Educate the patient that full fracture healing anticipated in approximately 8-12 weeks. Indications: The patient is 45 years old with right 5th metacarpal shaft fracture after punching a wall . The risks and benefits of operative treatment, including but not limited to risk of damage to blood vessels, nerves, tendons, infection, recurrence, delayed or nonunion of fracture, persistent pain or numbness, incomplete resolution of preoperative symptoms, or need for further surgery were discussed with the patient and they wished to proceed with surgery. Procedure: Once consent was obtained patient was brought back to the operating suite and placed in the operating table in a supine position. . Perioperative antibiotics and general anesthesia was administered by the anesthesia team. A tourniquet was applied to the proximal aspect of the right upper extremity and the limb was prepped and draped in a standard surgical fashion. Tourniquet was not inflated during the case. The FluoroScan was used during the case to assist with our fracture reduction and placement of all implants. The patient has an oblique fracture of the 5th metacarpal shaft. A closed reduction was performed on the patient's right metacarpal shaft fracture. I placed a single 0.062 K-wire retrograde through the head of the 5th metacarpal extending proximally to the fracture site. I then angled the distal fracture fragment so that I was able to pass the K-wire retrograde across the fracture site into the shaft. I then further reduced the fracture by bringing the distal fragment into alignment with the proximal fragment, and then advanced the K-wire retrograde down the shaft to the base of the metacarpal. I was very satisfied with our reduction and placement of this K-wire. A 2nd 0.062 K-wire was placed obliquely through the ulnar aspect of the 5th metacarpal shaft passing distally across the oblique fracture and then into the 4th metacarpal to prevent malrotation. Fracture alignment was assessed for both angular and rotational malalignment. Once satisfied with our fracture reduction and implant placement, the K-wires were bent and cut short and pin caps applied. Final fluoroscopic images were then obtained. The wounds were copiously irrigated with normal saline. An ulnar nerve block was then performed by infiltrating about the ulnar nerve at the wrist with some 0.5% plain Marcaine for postop pain control. A Sterile dressing and short volar splint was applied. The patient appears to have tolerated the procedure well and with no complications. All digits were well vascularized at the conclusion of the case.
[2021-03-19] MEDS: oxyCODONE HCl Immed Release 5 MG TABLET PO (14:39)
[2021-03-19] MEDS: Gabapentin 600 MG TABLET PO (14:40)
[2021-03-19] MEDS: Ketorolac Tromethamine 15 MG/ML VIAL 30 MG IV (18:12)
[2021-03-19] MEDS: fentaNYL citrate/PF 100 MCG/2 ML VIAL 50 MCG IVPUSH ×2 (18:30→18:40)
[2021-03-19] MEDS: ondansetron HCL 4 MG/2 ML VIAL IVPUSH (19:06)
== END 2021-03-19 19:35 ==
LOC: HO.SSS 11:24
PROVIDERS: Nurse Practitioner; PCP Internal Medicine; Visit Provider Orthopaedic Surgery
PROC: (CPT 26615; principal; 2021-03-19 15:10)
DX: S62.326A Displaced fracture of shaft of fifth metacarpal bone, right hand, initial encounter for closed fracture (principal); W22.09XA Striking against other stationary object, initial encounter; Y93.9 Activity, unspecified; Y92.9 Unspecified place or not applicable; Y99.9 Unspecified external cause status; Z88.0 Allergy status to penicillin
CPT/HCPCS: 26608; 81025; J0131; J0330; J0690; J1100; J1885; J2250; J2370; J2405; J3010

== ENCOUNTER 2021-03-30 06:24 | Emergency (ER) | payer OTHER, SELFPAY ==
--- NOTE | 2021-03-30 | ECG_ITS ---
Test Reason : CP Blood Pressure : / mmHG Vent. Rate : 059 BPM Atrial Rate : 059 BPM P-R Int : 124 ms QRS Dur : 094 ms QT Int : 402 ms P-R-T Axes : 041 089 084 degrees QTc Int : 397 ms Sinus bradycardia T inversion anterior leads; When compared with ECG of 19-OCT-2020 22:50, No significant change was found Referred By: Generic ED Physician Electronically Signed By:TRISH CARBAJAL
--- NOTE | ~2021-03-30 | CT_ITS ---
EXAMINATION: CTA CHEST PE STUDY CLINICAL INFORMATION: recent surgery off Eliquis for 2 days r/o PE COMPARISON: 10/04/2020 TECHNIQUE: Prior to contrast administration, noncontrast localization images were obtained. After the administration of 70 mL of Omnipaque 350 IV contrast, contiguous thin slice helical images were obtained through the thorax. Reformatted MIP images in the coronal and sagittal planes were obtained at the acquisition workstation. This CT examination was performed using dose optimization techniques as appropriate, variously including the following: *Automated exposure control *Adjustment of mA and/or kV according to patient size (this includes techniques or standardized protocols for targeted exams where dose is matched to indication/reason for exam; i.e. extremities or head) *Use of iterative reconstruction technique DLP: 273 mGy-cm. FINDINGS: The bolus timing on this study was acceptable for visualization of the pulmonary arterial tree. There are no intraluminal pulmonary arterial filling defects present to suggest pulmonary embolism. Minimal dependent atelectasis.. No abnormal pulmonary nodules or masses are appreciated. No significant hilar or mediastinal adenopathy. There is no evidence of pleural effusion or pneumothorax. The heart is normal in size. No evidence of ventricular septal bowing or right heart strain. Great vessels are normal. Otherwise the mediastinum is unremarkable. There is no pericardial effusion or pericardial thickening. Bilateral breast prostheses noted. Limited evaluation of the upper abdominal viscera is unremarkable. CT/CT angio chest PE protocol IMPRESSION: No evidence for pulmonary emboli. Minimal basilar atelectasis. VTE: Negative
[2021-03-30 06:40] VITALS: BP 135/86; PULSE 60; RESP 14; TEMP 36.6; O2SAT 97; BMI 26.6
--- NOTE | 2021-03-30 06:50 | ED.CHESTPAIN ---
HPI - Chest Pain General Chief Complaint: Chest Pain Stated Complaint: chest pains, nausea and vomit Time Seen by Provider: 03/30/21 06:40 Source: patient Mode of arrival: ambulatory Limitations: no limitations History of Present Illness complaint: chest pain Onset (ago): day(s) (today) Prior episodes: Yes Onset: during rest Pain location: substernal Pain radiation: none Severity: moderate Quality: aching Relieving factors: nothing Exacerbating factors: other (started after 2 days of n/v which she suspects is related to recent anesthesia off of eliquis for 2 days) Context: recent surgery Associated symptoms: nausea and vomiting Treatment prior to arrival: none Related Data Home Medications Medication Instructions Recorded Confirmed Trintellix 20 mg PO QAM 08/29/20 02/06/21 buspirone 15 mg PO BID 08/29/20 02/06/21 clonazepam 0.5 tab PO TID PRN 08/29/20 02/06/21 dextroamphetamine-amphetamine 10 mg PO QAM 08/29/20 02/06/21 dextroamphetamine-amphetamine 30 mg PO QAM 08/29/20 02/06/21 gabapentin 600 mg PO TID 08/29/20 02/06/21 oxycodone-acetaminophen 1 tab PO Q8H PRN 08/29/20 02/06/21 tizanidine 4 mg PO Q8H PRN 08/29/20 02/06/21 levonorgestrel [Mirena] VAGINAL ONCE 02/06/21 02/06/21 Previous Rx's Medication Instructions Recorded walker [Ultra-Light Rollator] #1 ea 10/06/20 ondansetron 4 mg PO Q6-8H PRN #14 tab 10/20/20 apixaban 2.5 mg PO BID #180 tab 02/04/21 oxycodone-acetaminophen 1 - 2 tab PO Q6H PRN #30 tab 03/19/21 oxycodone 5 mg capsule 5 mg PO Q6H PRN #20 cap 03/20/21 ondansetron 4 mg PO Q8H PRN #20 tab 03/30/21 promethazine 25 mg MN Q6H PRN #12 ea 03/30/21 Allergies Allergy/AdvReac Type Severity Reaction Status Date / Time erythromycin base Allergy Severe PANCREATITI Verified 03/13/21 13:24 [ERYTHROMYCIN BASE] S Penicillins [PCN] Allergy Severe HIVES Verified 03/13/21 13:24 Review of Systems Review of Systems: Constitutional : No Weight loss, No Fever, No Chills ENT/Mouth : No sore throat, No Rhinorrhea Eyes: No Eye Pain, No Swelling Cardiovascular : pos Chest Pain, no SOB, no Dyspnea on Exertion, No Orthopnea, No Edema, No Palpitations Respiratory : No Cough, No Sputum Gastrointestinal : pos Nausea, pos Vomiting, No Diarrhea, No abdominal Pain, No Hematochezia, No Melena Genitourinary : No Dysuria, No Urinary Frequency, pos vaginal bleedig for months Musculoskeletal : No joint pain, No Myalgias, No Joint Swelling Skin : No Skin Lesions, No rash Neuro : No Weakness, No Numbness, No Dizziness, No Headache Psych : No Anxiety/Panic, No Depression Heme/Lymph: No Bruising, No Lymphadenopathy Endocrine : No Polyuria, No Polydipsia All other systems reviewed and are negative [facility] Past Medical History Attestation statement: The following information was validated with the patient. Medical History EDS (Juan-Danlos syndrome) Menorrhagia Oral contraceptive use Pulmonary embolism Subchondral sclerosis Subchondral sclerosis Syncope and collapse Surgical History H/O knee surgery H/O shoulder surgery Family History Family History Paternal Aunt Breast cancer Father Diabetes High cholesterol HTN (hypertension) Maternal Uncle Stroke Maternal Grandfather Emphysema lung Lung cancer Maternal Grandmother Asthma Son Asthma Social History Social History Household Members: Children Housing: Apartment Do you presently have visiting nurse or other home services: Yes (home health aid for housekeeping) Alcohol intake: never Patient Tobacco Use Status: Never used Tobacco Second Hand Smoke Exposure: No Use of substances other than those prescribed or required for medical reasons: Yes Substance Use Type: Marijuana Substance Use Type Other:: Medical marijuana Substance Use Frequency: Occasionally Advance Directives: No Advance Directives Information Provided: No Patient : No service: No Current occupational status: unemployed Current occupation: right handed Physical Exam Vital Signs: Vital Signs: Last Vital Signs Temp 98.3 F 03/30/21 09:02 Pulse 60 03/30/21 09:02 Resp 18 03/30/21 09:02 BP 132/74 03/30/21 09:02 Pulse Ox 100 03/30/21 09:02 Body Mass Index 26.6 Appearance: Alert. Oriented X3. No acute distress. Eyes: Pupils equal, round and reactive to light. ENT: Pharynx normal. Neck: Normal inspection. Neck supple. CVS: Normal heart rate and rhythm. Pulses normal. Respiratory: No respiratory distress. Breath sounds normal. Abdomen: Soft and non-tender. Skin: Skin warm and dry. Normal skin color. Normal skin turgor. Extremities: No lower extremity edema. No calf ttp Neuro: Oriented X 3. No motor deficit. No sensory deficit. Course Course Course Narrative: trop remains flat, no changes in EKG at this time, negative for PE, will refer back to cardiology doubt dissection/PE/ACS or myocarditis at this time MDM - Chest Pain MDM Narrative Medical decision making narrative: 45 yo female with bouts of chest pain in past worked up negative for cardiac in past through our cardiology office, hx of PE on eliquis comes in today with c/o chest pain since this morning but also c/o n/v for 2 days likely due to recent anesthesia from repair of R hand fracture - she has not taken her eliquis in 2 days at this time labs, EKG, IVF, zofran/pepcid, CTA of chest to r/o PE, doubt ACS at this time Lab Data Result diagrams: 03/30/21 07:22 03/30/21 07:22 Labs: Lab Results 03/30/21 03/30/21 03/30/21 Range/Units 07:21 07:22 07:22 WBC 6.5 (4.8-10.8) X10*3/uL RBC 4.21 (4.20-5.50) X10*6/uL Hgb 11.7 L (12.0-16.0) g/dl Hct 35.6 L (37-47) % MCV 84.6 (80-98) fL MCH 27.8 (27.0-33.0) pg MCHC 32.9 (31.0-35.0) g/dl RDW 13.0 (11.0-16.0) % Plt Count 305 (160-400) X10*3/uL MPV 9.3 L (9.4-12.3) fL Immature Gran % (Auto) 0.2 (0.0-0.4) % Neut % (Auto) 70.4 (45-73) % Lymph % (Auto) 22.6 (20-40) % [place] % (Auto) 6.3 (2-11) % Eos % (Auto) 0.3 (0-4) % Baso % (Auto) 0.2 (0-2) % Lymph # (Auto) 1.5 (1.2-4.9) X10*3/uL [place] # (Auto) 0.4 (0.1-1.2) X10*3/uL Eos # (Auto) 0.0 (0.0-0.4) X10*3/uL Baso # (Auto) 0.0 (0.0-0.2) X10*3/uL Abs Immat Gran (auto) 0.01 (0.00-0.03) X10*3/uL Absolute Neuts (auto) 4.6 (2.0-8.3) X10*3/uL Absolute Nucleated RBC 0.000 (0.0-0.012) X10*3/uL Nucleated RBC % (auto) 0.0 (0.0-0.2) /100WBC PT (10.8-13.0) SEC INR (0.9-1.1) APTT (24.1-38.0) SEC Sodium 139 (135-145) mmol/L Potassium 3.5 (3.3-5.1) mmol/L Chloride 104 (96-108) mmol/L Carbon Dioxide 24 (22-29) mmol/L Anion Gap 15 (12-20) BUN 7 L D (9-16) mg/dL Creatinine 0.79 (0.5-1.4) mg/dL Estim Creat Clear Calc 88.3 Estimated GFR > 60 Random Glucose 89 (60-115) mg/dL Calcium 9.6 D (8.4-10.2) mg/dL Magnesium (1.6-2.6) mg/dL Total Bilirubin (0.0-1.0) mg/dL Direct Bilirubin (0.0-0.5) mg/dL AST (5-31) U/L ALT (0-31) U/L Alkaline Phosphatase (39-117) U/L Troponin I High Sens 19.1 H* (<3.5-17.0) ng/L Total Protein (6.5-8.0) g/dL Albumin (3.5-5.0) g/dL Lipase (8-78) U/L 03/30/21 03/30/21 Range/Units 07:22 07:22 WBC (4.8-10.8) X10*3/uL RBC (4.20-5.50) X10*6/uL Hgb (12.0-16.0) g/dl Hct (37-47) % MCV (80-98) fL MCH (27.0-33.0) pg MCHC (31.0-35.0) g/dl RDW (11.0-16.0) % Plt Count (160-400) X10*3/uL MPV (9.4-12.3) fL Immature Gran % (Auto) (0.0-0.4) % Neut % (Auto) (45-73) % Lymph % (Auto) (20-40) % [place] % (Auto) (2-11) % Eos % (Auto) (0-4) % Baso % (Auto) (0-2) % Lymph # (Auto) (1.2-4.9) X10*3/uL [place] # (Auto) (0.1-1.2) X10*3/uL Eos # (Auto) (0.0-0.4) X10*3/uL Baso # (Auto) (0.0-0.2) X10*3/uL Abs Immat Gran (auto) (0.00-0.03) X10*3/uL Absolute Neuts (auto) (2.0-8.3) X10*3/uL Absolute Nucleated RBC (0.0-0.012) X10*3/uL Nucleated RBC % (auto) (0.0-0.2) /100WBC PT 13.7 H (10.8-13.0) SEC INR 1.2 H (0.9-1.1) APTT 36.5 (24.1-38.0) SEC Sodium (135-145) mmol/L Potassium (3.3-5.1) mmol/L Chloride (96-108) mmol/L Carbon Dioxide (22-29) mmol/L Anion Gap (12-20) BUN (9-16) mg/dL Creatinine (0.5-1.4) mg/dL Estim Creat Clear Calc Estimated GFR Random Glucose (60-115) mg/dL Calcium (8.4-10.2) mg/dL Magnesium 1.8 (1.6-2.6) mg/dL Total Bilirubin 0.8 (0.0-1.0) mg/dL Direct Bilirubin 0.3 (0.0-0.5) mg/dL AST 15 (5-31) U/L ALT 6 (0-31) U/L Alkaline Phosphatase 59 (39-117) U/L Troponin I High Sens (<3.5-17.0) ng/L Total Protein 7.8 (6.5-8.0) g/dL Albumin 4.7 (3.5-5.0) g/dL Lipase 112 H (8-78) U/L ECG Data ECG #1: Attestation: I personally reviewed and interpreted this ECG as follows: ECG interpretation date: 03/30/21 ECG interpretation time: 06:51 Interpretation: Rate: 59 Rhythm: sinus bradycardia [place]:normal Normal P waves. Normal ZHANE. Normal QRS complex. ST T wave : inverted aVL biphasic V1-V3, no CELESTINA qTC: normal prior studies: no change from Oct 2020 The study has been interpreted contemporaneously by me. . Discharge Plan Discharge Clinical Impression: Atypical chest pain, Elevated troponin Vomiting Qualifiers: Vomiting type: unspecified Vomiting Intractability: non-intractable Nausea presence: with nausea Qualified Code(s): R11.2 - Nausea with vomiting, unspecified Patient Disposition: Home, Self-Care Instructions: Chest Pain (ED), Acute Nausea and Vomiting (ED) Additional Instructions: return to ED for any worsening symptoms or concerns Prescriptions: New promethazine 25 mg suppository 25 mg MN Q6H PRN (Reason: nausea and vomiting) Qty: 12 RF: 0 ondansetron 4 mg tablet,disintegrating 4 mg PO Q8H PRN (Reason: nausea and vomiting) Qty: 20 RF: 0 No Action apixaban 2.5 mg tablet 2.5 mg PO BID Qty: 180 RF: 4 oxycodone 5 mg capsule 5 mg PO Q6H PRN (Reason: pain) Qty: 20 RF: 0 (DME) Ultra-Light Rollator Misc See Rx Instructions .ROUTE .MEDSUPPLY Qty: 1 RF: 0 oxycodone-acetaminophen 5-325 mg tablet 1 - 2 tab PO Q6H PRN (Reason: pain) Qty: 30 RF: 0 gabapentin 600 mg tablet 600 mg PO TID RF: 0 tizanidine 4 mg tablet 4 mg PO Q8H PRN (Reason: muscle spasm) RF: 0 clonazepam 1 mg tablet 0.5 tab PO TID PRN (Reason: Anxiety) RF: 0 oxycodone-acetaminophen 5-325 mg tablet 1 tab PO Q8H PRN (Reason: pain) RF: 0 dextroamphetamine-amphetamine 10 mg capsule,extended release 24hr 10 mg PO QAM RF: 0 dextroamphetamine-amphetamine 30 mg capsule,extended release 24hr 30 mg PO QAM RF: 0 buspirone 15 mg tablet 15 mg PO BID RF: 0 Trintellix 20 mg tablet 20 mg PO QAM RF: 0 Mirena 20 mcg/24 hours (6 yrs) 52 mg intrauterine device vaginal ONCE RF: 0 ondansetron 4 mg tablet,disintegrating 4 mg PO Q6-8H PRN (Reason: nausea and vomiting) Qty: 14 RF: 0 Referrals: James Ledesma MD [Physician] - 1 week
[2021-03-30 07:30] LABS: MANUAL DIFF FLAG NO
[2021-03-30 07:32] LABS: Basophils Percent Auto 0.2 % (0-2); Eosinophils Percent Auto 0.3 % (0-4); Hematocrit 35.6 % (37-47); Hemoglobin 11.7 g/dl (12.0-16.0); Imm Gran Abs Auto 0.01 X10*3/uL (0.00-0.03); Imm Gran Pct Auto 0.2 % (0.0-0.4); Lymphocytes Absolute Auto 1.5 X10*3/uL (1.2-4.9); Lymphocytes Percent Auto 22.6 % (20-40); Mean Corpuscular HGB Conc 32.9 g/dl (31.0-35.0); Mean Corpuscular Hemoglobin 27.8 pg (27.0-33.0); Mean Corpuscular Volume 84.6 fL (80-98); Mean Platelet Volume 9.3 fL (9.4-12.3); Monocytes Absolute Auto 0.4 X10*3/uL (0.1-1.2); Monocytes Percent Auto 6.3 % (2-11); Neutrophils Absolute Auto 4.6 X10*3/uL (2.0-8.3); Neutrophils Percent Auto 70.4 % (45-73); Platelet Count 305 X10*3/uL (160-400); Red Blood Count 4.21 X10*6/uL (4.20-5.50); White Blood Count 6.5 X10*3/uL (4.8-10.8)
[2021-03-30 07:39] LABS: INTERNATIONAL NORM RATIO 1.2 (0.9-1.1); Prothrombin Time 13.7 SEC (10.8-13.0)
[2021-03-30 07:42] LABS: Partial Thromboplastin Time 36.5 SEC (24.1-38.0)
[2021-03-30] MEDS: 0.9 % Sodium Chloride 1,000 ML 999 ML IVCONT (07:46)
[2021-03-30] MEDS: ondansetron HCL 4 MG/2 ML VIAL IVPUSH (07:47)
[2021-03-30] MEDS: Famotidine/PF 20 MG/2 ML VIAL IVPUSH (07:47)
[2021-03-30 08:04] LABS: Troponin-I High Sensitivity 19.1 ng/L (<3.5-17.0)
[2021-03-30 08:04] LABS: Anion Gap 15 (12-20); Blood Urea Nitrogen 7 mg/dL (9-16); Calcium 9.6 mg/dL (8.4-10.2); Carbon Dioxide 24 mmol/L (22-29); Chloride 104 mmol/L (96-108); Creatinine Clr Calc Pharmacy 88.3; Estimated Glomerular Filt Rate > 60; Glucose Random 89 mg/dL (60-115); Potassium 3.5 mmol/L (3.3-5.1); Sodium 139 mmol/L (135-145)
[2021-03-30 08:09] LABS: Alanine Aminotransferase 6 U/L (0-31); Albumin Level 4.7 g/dL (3.5-5.0); Alkaline Phosphatase 59 U/L (39-117); Aspartate Amino Transferase 15 U/L (5-31); Bilirubin Direct 0.3 mg/dL (0.0-0.5); Bilirubin Total 0.8 mg/dL (0.0-1.0); Magnesium 1.8 mg/dL (1.6-2.6); Total Protein 7.8 g/dL (6.5-8.0)
[2021-03-30 08:22] LABS: Lipase 112 U/L (8-78)
[2021-03-30 09:02] VITALS: BP 132/74; PULSE 60; RESP 18; TEMP 36.8; O2SAT 100
[2021-03-30 09:03] VITALS: PULSE 75
[2021-03-30] MEDS: iohexoL 350 MG/ML 100 ML INFUS..BTL IV (09:08)
[2021-03-30] MEDS: diphenhydrAMINE HCL 50 MG/ML VIAL 25 MG IVPUSH (09:17)
[2021-03-30] MEDS: Metoclopramide HCl 10 MG/2 ML VIAL IVPUSH (09:18)
--- NOTE | 2021-03-30 09:18 | PC.NURSE ---
When pt returned from CT she reported that she continued to feel nauseous. Ponce ordered/given.
== END 2021-03-30 11:38 | disposition home or self-care (01) ==
PROVIDERS: Emergency Provider Emergency Medicine
DX: R07.89 Other chest pain (principal); R11.2 Nausea with vomiting, unspecified; R79.89 Other specified abnormal findings of blood chemistry; Z86.711 Personal history of pulmonary embolism
CPT/HCPCS: 36415; 71275; 80048; 80076; 83690; 83735; 84484; 85025; 85610; 85730; 93005; 96361; 96374; 96375; 99285; J1200; J2405; J2765; Q9967

== ENCOUNTER 2021-04-01 09:06 | Outpatient (REF) | payer OTHER, SELFPAY ==
--- NOTE | ~2021-04-01 | XR_ITS ---
EXAMINATION: XR HAND, RIGHT CLINICAL INFORMATION: Fracture COMPARISON: Previous x-rays most recent 03/19/2021 TECHNIQUE: PA, lateral, and oblique views of the right hand. FINDINGS: There are 2 wires or pins transfixing the oblique fracture of the distal shaft of the fifth metacarpal bone. Orthopedic hardware appears unchanged. Bone alignment appears unchanged. Soft tissues are unremarkable. XR/XR hand RT min 3V IMPRESSION: ORIF of right fifth metacarpal fracture similar to fluoroscopic exam 03/19/2021
== END 2021-04-01 09:07 | disposition home or self-care (01) ==
LOC: HO.HOSX 09:06
PROVIDERS: Visit Provider Orthopaedic Surgery
DX: S62.326D Displaced fracture of shaft of fifth metacarpal bone, right hand, subsequent encounter for fracture with routine healing (principal)
CPT/HCPCS: 73130; 99212

== ENCOUNTER → 2021-04-05 11:09 | Outpatient (BNVA) | payer OTHER, SELFPAY | PROVIDERS: Visit Provider Obstetrics & Gynecology | DX: N93.9 Abnormal uterine and vaginal bleeding, unspecified (principal) | CPT/HCPCS: 99212 ==

== ENCOUNTER 2021-04-11 08:51 | Day surgery (SDC) | payer OTHER, SELFPAY ==
--- NOTE | 2021-03-12 14:55 | P.CONAN_ITS ---
HPI - Anesthesia Eval Consult details Narrative: 45yo F for D&C Hysteroscopy with Novasure & IUD Removal Recent negative cardiac work up after syncopal episode and dx of Juan Loli Ornelasis of PE 08/2020 Rescheduled to 04/11/21 [facility] Active Problems Active Problems: All Active Problems (Updated 03/12/21 @ 14:17 by RODERICK De Leon) Hand fracture, right (Acute) Physical deconditioning (Acute) Left hip pain (Acute) H/O shoulder surgery (Chronic) Pulmonary embolism (Acute) Past Medical History Medical History EDS (Juan-Danlos syndrome) Menorrhagia Oral contraceptive use Pulmonary embolism Subchondral sclerosis Subchondral sclerosis Syncope and collapse Family History Family History Paternal Aunt Breast cancer Father Diabetes High cholesterol HTN (hypertension) Maternal Uncle Stroke Maternal Grandfather Emphysema lung Lung cancer Maternal Grandmother Asthma Son Asthma Surgical History Surgical History H/O knee surgery H/O shoulder surgery Social History Social History (Updated 03/13/21 @ 13:24 by RADHA Salcedo) Household Members: Children Housing: Apartment Do you presently have visiting nurse or other home services: Yes (home health aid for housekeeping) Alcohol intake: never Second Hand Smoke Exposure: No service: No Current occupational status: unemployed Current occupation: right handed Meds Allergies Allergy/AdvReac Type Severity Reaction Status Date / Time erythromycin base Allergy Severe PANCREATITI Verified 03/13/21 13:24 [ERYTHROMYCIN BASE] S Penicillins [PCN] Allergy Severe HIVES Verified 03/13/21 13:24 Home Medications Medication Instructions Recorded Confirmed Last Taken Type Trintellix 20 mg PO QAM 08/29/20 02/06/21 10/04/20 History buspirone 15 mg PO BID 08/29/20 02/06/21 10/04/20 History clonazepam 0.5 tab PO TID PRN 08/29/20 02/06/21 10/04/20 History dextroamphetamine-amphetamine 10 mg PO QAM 08/29/20 02/06/2110/04/20 History dextroamphetamine-amphetamine 30 mg PO QAM 08/29/20 02/06/21 10/04/20 History gabapentin 600 mg PO TID 08/29/20 02/06/21 10/04/20 History oxycodone-acetaminophen 1 tab PO Q8H PRN 08/29/20 02/06/21 10/04/20 History tizanidine 4 mg PO Q8H PRN 08/29/20 02/06/21 10/04/20 History levonorgestrel [Mirena] VAGINAL ONCE 02/06/21 02/06/21 Unknown History Exam Exam Date and Time: March 12, 2021 1455 Narrative Narrative: EKG 10/2020 Vent. Rate : 055 BPM Atrial Rate : 055 BPM P-R Int : 136 ms QRS Dur : 094 ms QT Int : 408 ms P-R-T Axes : 049 084 061 degrees QTc Int : 390 ms Sinus bradycardia Anterior T wave inverions - consider ischemia abnormal ECG When compared to the previous EKG of Anterior T wave inversions are more prominent Holter 11/2020 Basic rhythm Normal sinus rhythm No long pauses Frequent Sinus bradycardia , 61% of time HR < 60 bpm Rare Premature atrial complexes Patient reported symptom of partial syncope correlated with NSR ECHO 09/2020 Conclusions: - Low normal LV systolic function otherwise normal study Stress 01/2021 Exercise stress test using Louie protocol, total of 6 min 49 sec. METS 8.10, TAPHR up to 88 %. Pt tolerated well, denies any anginal sx. EKG without any arrhythmias, no ischemic changes seen during exercise or in recovery. Normotensive response to exercise. Test reviewed with Dr. Menezes. Assessment and Plan Assessment Anesthesia Assessment: Chart Reviewed
[2021-04-11] VITALS (7 sets, daily range): BP systolic 102–119; BP diastolic 60–92; PULSE 55–74; RESP 16–18; TEMP 36.4; O2SAT 97–100; BMI 23.0
[2021-04-11 09:21] LABS: UPreg QC Valid YES; Urine Pregnancy NEGATIVE (NEGATIVE)
[2021-04-11] MEDS: Lactated Ringers 1,000 ML 100 ML IVCONT (09:29)
--- NOTE | 2021-04-11 09:36 | HO.ANESPROP2 ---
HPI - Anesthesia Eval Consult details Narrative: 45 yo female patient for D&C, hysteroscopy with Novasure ablation and IUD removal Recent negative cardiac work up after syncopal episode and dx of Juan Danlos Shaniquequis for PE 08/2020 Rescheduled to 04/11/21 Again seen in ED on 03/30/21 for chestpain, N&V after hand surgery. Elevated troponins on initial check but stayed flat. No other change in cardiac status. Discharged with diagnosis of atypical chest pain;N&V probably secondary to anesthesia PMFSH Active Problems Active Problems: All Active Problems (Updated 04/05/21 @ 11:14 by Soraya Valderrama MD) Abnormal uterine bleeding (Acute) Pulmonary embolism (Acute) Left hip pain (Acute) Physical deconditioning (Acute) Fracture of fifth metacarpal bone (Acute) Fracture of shaft of fifth metacarpal bone of right hand (Acute) H/O shoulder surgery (Chronic) Past Medical History Medical History (Updated 04/11/21 @ 10:03 by Teressa Haskins) Atypical chest pain EDS (Juan-Danlos syndrome) Menorrhagia On anticoagulant therapy Oral contraceptive use GEORGES (obstructive sleep apnea) Pulmonary embolism Subchondral sclerosis Subchondral sclerosis Syncope and collapse Family History Family History Paternal Aunt Breast cancer Father Diabetes High cholesterol HTN (hypertension) Maternal Uncle Stroke Maternal Grandfather Emphysema lung Lung cancer Maternal Grandmother Asthma Son Asthma Family history of problems with anesthesia: No Surgical History Surgical History H/O knee surgery H/O shoulder surgery History of Problems with Anesthesia: Yes (PONV) Social History Social History Household Members: Children Housing: Apartment Do you presently have visiting nurse or other home services: Yes (home health aid for housekeeping) Alcohol intake: never Patient Tobacco Use Status: Never used Tobacco Second Hand Smoke Exposure: No Use of substances other than those prescribed or required for medical reasons: Yes Substance Use Type: Marijuana Substance Use Frequency: Daily Are you DNR?: No Advance Directives: No Advance Directives Information Provided: Yes service: No Current occupational status: unemployed Current occupation: right handed Meds Allergies Allergy/AdvReac Type Severity Reaction Status Date / Time erythromycin base Allergy Severe PANCREATITI Verified 04/05/21 11:18 [ERYTHROMYCIN BASE] S Penicillins [PCN] Allergy Severe HIVES Verified 04/05/21 11:18 Active Medications: Current Medications Generic Name Dose Route Start Last Admin Trade Name Adamq PRN Reason Stop Dose Admin Lactated Ringer's 1,000 mls @ 100 mls/hr 04/11/21 09:00 04/11/21 09:29 Lr IVCONT 100 mls/hr .Q10H VERONICA Administration Home Medications Medication Instructions Recorded Confirmed Last Taken Type Trintellix 20 mg PO QAM 08/29/20 04/05/21 10/04/20 History buspirone 15 mg PO BID 08/29/20 04/05/21 04/11/21 History clonazepam 0.5 tab PO TID PRN 08/29/20 04/05/21 04/11/21 History dextroamphetamine-amphetamine 10 mg PO QAM 08/29/20 04/05/21 10/04/20 History dextroamphetamine-amphetamine 30 mg PO QAM 08/29/20 04/05/21 10/04/20 History gabapentin 600 mg PO TID 08/29/20 04/05/21 04/11/21 History oxycodone-acetaminophen 1 tab PO Q8H PRN 08/29/20 02/06/21 03/19/21 History tizanidine 4 mg PO Q8H PRN 08/29/20 04/05/21 03/19/21 History levonorgestrel [Mirena] VAGINAL ONCE 02/06/21 02/06/21 Unknown History Exam Exam Date and Time: April 11, 2021 0936 Height,Weight and Vital Signs: Height 5 ft 4 in Weight 60.781 kg Last Vital Signs Temp 97.5 F 04/11/21 09:00 Pulse 64 04/11/21 09:00 Resp 18 04/11/21 09:00 BP 102/69 04/11/21 09:00 Pulse Ox 97 04/11/21 09:00 Pertinent Lab Results Pertinent Lab Results: Laboratory Tests 04/11/21 09:05 Urine Test NEGATIVE Narrative Narrative: Date of Service: 03/30/21 Procedure(s): ECG 12 lead EKG Test Reason : CP Blood Pressure : / mmHG Vent. Rate : 059 BPM Atrial Rate : 059 BPM P-R Int : 124 ms QRS Dur : 094 ms QT Int : 402 ms P-R-T Axes : 041 089 084 degrees QTc Int : 397 ms Sinus bradycardia T inversion anterior leads; When compared with ECG of 19-OCT-2020 22:50, No significant change was found Holter 11/2020 Basic rhythm Normal sinus rhythm No long pauses Frequent Sinus bradycardia , 61% of time HR < 60 bpm Rare Premature atrial complexes Patient reported symptom of partial syncope correlated with NSR ECHO 09/2020 Conclusions: - Low normal LV systolic function otherwise normal study Stress 01/2021 Exercise stress test using Louie protocol, total of 6 min 49 sec. METS 8.10, TAPHR up to 88 %. Pt tolerated well, denies any anginal sx. EKG without any arrhythmias, no ischemic changes seen during exercise or in recovery. Normotensive response to exercise. Test reviewed with Dr. Menezes Airway Mallampati Class: II TM Dist: >3cm Neck ROM: Full Loose/Missing/Broken Teeth: Yes (Missing some) Heart: RRR Lungs: CTAB Assessment and Plan Assessment Anesthesia Assessment: Anesthesia Plan Discussed and Chart Reviewed Final Anesthetic Review NPO: Yes ASA Class: III Final Preanesthetic Review: No Changes in Pt Med Stat, Meds/Allgs Chart Reviewed, Consent Obtained/Reviewed and Anes Risks/Benef Reviewed Patient Risk: Intermediate Procedure Risk: Low Assessment/Block/Sedation in SS: Assess/Block/Sedation-SS Anesthetic Plan Anesthetic Plan: GA (Anti-emetics) Disposition: Standard PACU
[2021-04-11] MEDS: Scopolamine 1.5 MG PATCH.TD.3 TRANSDERMA (10:01)
--- NOTE | 2021-04-11 10:33 | P.OP_ITS ---
Operative Note Operative Note Date of Service: 04/11/21 Narrative: Ms. Malcolm is a 45yo with AUB which has been unresponsive to Mirena IUD, inserted 10/18/20. An endometrial biopsy was performed, which showed proliferative endometrium; no atypia or hyperplasia seen. A pelvic CT was done when the patient presented to the ER with acute AUB in September and was unremarkable. The patient was counseled that endometrial ablation is not indicated if she desires future fertility. The patient expressed understanding of this and stated that her family planning is complete and her current form of control is abstinence. Surgical Risks: The patient was informed of the risks and benefits of the procedure. Risks included but were not limited to bleeding, infection, injury to the vulva, vagina, or cervix, and uterine perforation. The patient was also informed of the risk that the Novasure ablation may not result in full resolution of symptoms. The patient expressed understanding of the risks involved, all questions were answered, and she consented to the procedure. The patient was taken to the operating room where a time out was performed to confirm correct patient and correct procedure. []General anesthesia was established. The patient was then positioned on the operating table in the dorsal lithotomy position and her legs supported using stirrups. All pressure points were padded and a warm blanket was placed to maintain control of core body temperature. The patient was then prepped and draped in the usual sterile fashion. The adnexa were palpated bilaterally and there were no palpable masses. The bladder was emptied with a straight catheter and 75mL of urine was ob tained. A bivalve speculum was inserted into the vagina. The cervix was visualized with Mirena IUD strings visible at the os. These were grasped with a ring forceps and the IUD was removed with gentle traction. The anterior lip of the cervix was grasped using a single tooth tenaculum. 6mL of 0.5% bupivicaine was injected at the 4 and 8 o?clock positions each as a paracervical block. The hysteroscope was introduced through the cervix and advanced to the fundus of the uterus under direct visualization using distending media. Inspection of the entire uterine cavity was performed. There were no abnormalities noted. The ostia were visualized bilaterally. The hysteroscope was then removed and sharp curettage performed covering all uterine surfaces. Endometrial curettings were sent to pathology for examination. The Novasure SureSound device was then inserted through the cervix. The malecot was then deployed and the device was anchored on the internal os. The cervical length was measured and found to be 3cm. The probe was then extended to the fundus and the uterine cavity was measured and found to be 5.5cm. The SureSound was then removed and the Novasure was introduced through the cervix and advanced to the fundus. The Novasure was released and rotated from side to side in order to measure the cavity width; it was found to be 3.4cm. The test was performed using the NovaSure and there was no leakage of gas noted. The NovaSure was then set and deployed. It was set to a power of 103W and a burn time of 1:27. The NovaSure was then fully retracted and the hysteroscope reintroduced through the cervix and global ablation to the entire cavity was noted. The procedure was felt to be successful. The hysteroscope was then removed and the single tooth tenaculum was removed from the anterior lip of the cervix. Good hemostasis was confirmed. All needle, sponge, and instrument counts were noted to be correct x2 at the end of the procedure. The patient was transferred to the recovery room in stable condition.
--- NOTE | 2021-04-11 10:37 | MHC.SHP ---
Pre-Procedural Eval Section A Date of Service: 04/11/21 The patient is an INPATIENT: No Changes since office visit: No Cold of Flu in the past 2 weeks, No New Medical Problems, No Changes in Medication and No Patient answered all questions The History & Physical has been completed within 30 days and I have reviewed it.: Yes Section B Chief Complaint: AUB, IUD Surveillance Allergies: Allergies Allergy/AdvReac Type Severity Reaction Status Date / Time erythromycin base Allergy Severe PANCREATITI Verified 04/05/21 11:18 [ERYTHROMYCIN BASE] S Penicillins [PCN] Allergy Severe HIVES Verified 04/05/21 11:18 Plan I have reviewed the history and physical and performed a pertinent physical examination on my patient. No changes have occurred unless specified.
[2021-04-11] MEDS: Ketorolac Tromethamine 15 MG/ML VIAL IVPUSH (12:08)
== END 2021-04-11 13:00 | disposition home or self-care (01) ==
LOC: HO.SSS 08:51
PROVIDERS: Nurse Practitioner; PCP Internal Medicine; Visit Provider Obstetrics & Gynecology
PROC: (CPT 58563; principal; 2021-04-11 11:30)
DX: N93.8 Other specified abnormal uterine and vaginal bleeding (principal); Z30.432 Encounter for removal of intrauterine contraceptive device; I26.99 Other pulmonary embolism without acute cor pulmonale; Z79.899 Other long term (current) drug therapy; Z88.0 Allergy status to penicillin; Z88.1 Allergy status to other antibiotic agents
CPT/HCPCS: 58563; 58301; 81025; 88305; J1100; J1885; J2250; J2405; J2765; J3010

== ENCOUNTER → 2021-04-19 11:32 | Outpatient (BNVA) | payer OTHER, SELFPAY | PROVIDERS: PCP Internal Medicine; Visit Provider Obstetrics & Gynecology ==

== ENCOUNTER 2021-04-24 08:28 | Outpatient (REF) | payer OTHER, SELFPAY ==
--- NOTE | ~2021-04-24 | XR_ITS ---
EXAMINATION: XR HAND, RIGHT CLINICAL INFORMATION: Right hand pain. COMPARISON: Most recent right hand radiographs dated 04/01/2021. TECHNIQUE: PA, lateral, and oblique views of the right hand. FINDINGS: Oblique 5th metacarpal fracture in unchanged anatomic alignment with associated orthopedic pins. No hardware fracture. No perihardware lucency to suggest loosening or infection. Increased new bone/callus formation when compared to the prior examination. XR/XR hand RT min 3V IMPRESSION: Fifth metacarpal fracture in unchanged anatomic alignment with increase in new bone/callus formation. Orthopedic pins without evidence of hardware complication.
== END 2021-04-24 08:29 | disposition home or self-care (01) ==
LOC: HO.HOSX 08:28
PROVIDERS: Visit Provider Orthopaedic Surgery
DX: S62.326D Displaced fracture of shaft of fifth metacarpal bone, right hand, subsequent encounter for fracture with routine healing (principal)
CPT/HCPCS: 73130; 99212

== ENCOUNTER 2021-05-22 08:31 | Outpatient (REF) | payer OTHER, SELFPAY | END 2021-05-22 08:32 | disposition home or self-care (01) | LOC: HO.HOSX 08:31 | PROVIDERS: Visit Provider Orthopaedic Surgery | DX: Z13.89 Encounter for screening for other disorder (principal) ==

== ENCOUNTER 2022-05-14 11:45 | Outpatient (REF) | payer OTHER, SELFPAY ==
[2022-05-14 19:47] LABS: CT PCR DETECTED (Not Detect.); NG PCR NOT DETECTED (Not Detect.)
[2022-05-15 09:20] LABS: BV Int Neg Control Negative (Negative); BV Int Pos Control Positive (Positive)
[2022-05-17 14:37] LABS: HPV mRNA E6/E7 rflx Not Detected (Not Detected)
== END 2022-05-14 11:46 | disposition home or self-care (01) ==
LOC: HO.LAB 11:45
PROVIDERS: PCP Internal Medicine; Visit Provider Obstetrics & Gynecology
DX: Z01.419 Encounter for gynecological examination (general) (routine) without abnormal findings (principal); Z11.51 Encounter for screening for human papillomavirus (HPV); B37.3 Candidiasis of vulva and vagina
CPT/HCPCS: 81025; 87480; 87491; 87510; 87591; 87624; 87660; 88142; 99212

== ENCOUNTER 2022-06-12 12:29 | Outpatient (REF) | payer OTHER, SELFPAY ==
[2022-06-12 15:37] LABS: CT PCR NOT DETECTED (Not Detect.); NG PCR NOT DETECTED (Not Detect.)
[2022-06-13 08:07] LABS: HBsAGNum1 0.23 S/CO (0.00-0.99); HIV AB/AG Nonreactive (Nonreactive); HIV Num 1 0.08 S/CO (0.00-0.99); Hepatitis B Surface Antigen Negative (Negative); ~HepC Num1 0.09 S/CO (0.00-0.79); ~Hepatitis C Antibody Nonreactive (Nonreactive)
[2022-06-13 08:08] LABS: Syphilis Screen Nonreactive (Nonreactive)
[2022-06-13 14:29] LABS: BV Int Neg Control Negative (Negative); BV Int Pos Control Positive (Positive)
== END 2022-06-12 12:30 | disposition home or self-care (01) ==
LOC: HO.LAB 12:29
PROVIDERS: PCP Internal Medicine; Visit Provider Obstetrics & Gynecology
DX: A74.9 Chlamydial infection, unspecified (principal); Z11.3 Encounter for screening for infections with a predominantly sexual mode of transmission; Z11.8 Encounter for screening for other infectious and parasitic diseases; Z11.4 Encounter for screening for human immunodeficiency virus [HIV]; Z11.59 Encounter for screening for other viral diseases
CPT/HCPCS: 36415; 86780; 86803; 87340; 87389; 87480; 87491; 87510; 87591; 87660; 99212

== ENCOUNTER 2022-07-22 11:10 | Outpatient (REF) | payer OTHER, SELFPAY ==
[2022-07-22 14:25] LABS: CT PCR NOT DETECTED (Not Detect.); NG PCR NOT DETECTED (Not Detect.)
[2022-07-23 12:44] LABS: BV Int Neg Control Negative (Negative); BV Int Pos Control Positive (Positive)
== END 2022-07-22 11:11 | disposition home or self-care (01) ==
LOC: HO.LNP 11:10
PROVIDERS: Visit Provider Obstetrics & Gynecology
DX: Z11.3 Encounter for screening for infections with a predominantly sexual mode of transmission (principal); N93.9 Abnormal uterine and vaginal bleeding, unspecified
CPT/HCPCS: 87480; 87491; 87510; 87591; 87660; 99212

== ENCOUNTER → 2022-09-16 08:44 | Outpatient (BNVA) | payer OTHER, SELFPAY | PROVIDERS: PCP Internal Medicine; Visit Provider Internal Medicine Rheumatology | DX: M79.7 Fibromyalgia (principal); Q79.60 Ehlers-Danlos syndrome, unspecified | CPT/HCPCS: 99212 ==

== ENCOUNTER 2022-12-30 14:47 | Outpatient (REF) | payer OTHER, SELFPAY ==
--- NOTE | ~2022-12-30 | US_ITS ---
EXAM: Pelvic Ultrasound CLINICAL INDICATION: Abnormal uterine bleeding COMPARISON: None TECHNIQUE: The pelvis was evaluated using transabdominal and transvaginal imaging. FINDINGS: The uterus measures 9.2 x 4.4 x 4.9 cm in longitudinal by AP by transverse dimension. The uterus demonstrates overall heterogeneous echotexture. There is shadowing of the anterior uterus felt to be from prior scar. The endometrial stripe is not thickened and measures 0.5 cm. The cervix measures approximately 2.2 cm in length. Nabothian cyst identified within the cervix. The left ovary measures approximately 3.6 x 2.3 x 2.2 cm and is normal. The right ovary measures approximately 2.2 x 1.2 x 2.1 cm and is also normal. There are no abnormal adnexal masses. There is a small amount of free fluid in the pelvis. US/US pelvic and transvaginal IMPRESSION: 1. Normal thickness endometrial stripe. 2. Heterogeneous echotexture of the uterus. 3. Shadowing of the anterior uterus felt to be from prior scar. 4. Small amount of free pelvic fluid which is likely physiologic in a female of this age.
== END 2022-12-30 14:48 | disposition home or self-care (01) ==
LOC: HO.US 14:47
PROVIDERS: PCP Internal Medicine; Visit Provider Obstetrics & Gynecology
DX: N93.9 Abnormal uterine and vaginal bleeding, unspecified (principal)
CPT/HCPCS: 76830; 76856

== ENCOUNTER 2023-01-22 08:17 | Outpatient (REF) | payer OTHER, SELFPAY | END 2023-01-22 08:18 | disposition home or self-care (01) | LOC: HO.LNP 08:17 | PROVIDERS: PCP Internal Medicine; Visit Provider Obstetrics & Gynecology | DX: N93.9 Abnormal uterine and vaginal bleeding, unspecified (principal) | CPT/HCPCS: 58100; 81025; 88305 ==

== ENCOUNTER 2023-01-22 09:00 | Outpatient (REF) | payer OTHER, SELFPAY ==
[2023-01-23 08:23] LABS: HBsAGNum1 0.41 S/CO (0.00-0.99); HIV AB/AG Nonreactive (Nonreactive); Hepatitis B Surface Antigen Negative (Negative); ~HepC Num1 0.16 S/CO (0.00-0.79); ~Hepatitis C Antibody Nonreactive (Nonreactive)
[2023-01-23 08:47] LABS: Syphilis Screen Nonreactive (Nonreactive)
[2023-01-23 09:25] LABS: CT PCR NOT DETECTED (Not Detect.); NG PCR NOT DETECTED (Not Detect.)
[2023-01-23 09:56] LABS: BV Int Neg Control Negative (Negative); BV Int Pos Control Positive (Positive)
== END 2023-01-22 09:01 | disposition home or self-care (01) ==
LOC: HO.LAB 09:00
PROVIDERS: PCP Internal Medicine; Visit Provider Obstetrics & Gynecology
DX: N93.9 Abnormal uterine and vaginal bleeding, unspecified (principal); Z20.2 Contact with and (suspected) exposure to infections with a predominantly sexual mode of transmission
CPT/HCPCS: 0353U; 86780; 86803; 87340; 87389; 87480; 87510; 87660

== ENCOUNTER 2023-02-19 08:15 | Outpatient (REF) | payer OTHER, SELFPAY ==
[2023-02-19 10:01] LABS: Hematocrit 38.2 % (37.0-47.0); Hemoglobin 12.1 g/dl (12.0-16.0); Mean Corpuscular HGB Conc 31.7 g/dl (31.0-35.0); Mean Corpuscular Hemoglobin 27.8 pg (27.0-33.0); Mean Corpuscular Volume 87.6 fL (80.0-98.0); Mean Platelet Volume 9.4 fL (9.4-12.3); Platelet Count 316 X10*3/uL (160-400); Red Blood Count 4.36 X10*6/uL (4.20-5.50); Red Cell Distribution Width 13.6 % (11.0-16.0); White Blood Count 6.8 X10*3/uL (4.8-10.8)
[2023-02-19 10:57] LABS: HCG Quantitative < 2 mIU/mL; TSH reflex Free T4 1.79 uIU/mL (0.32-4.0)
[2023-02-20 08:42] LABS: Syphilis Screen Nonreactive (Nonreactive)
[2023-02-20 09:19] LABS: HBsAGNum1 0.34 S/CO (0.00-0.99); HIV AB/AG Nonreactive (Nonreactive); HIV Num 1 0.08 S/CO (0.00-0.99); Hepatitis B Surface Antigen Negative (Negative); ~HepC Num1 0.13 S/CO (0.00-0.79); ~Hepatitis C Antibody Nonreactive (Nonreactive)
[2023-02-21 06:03] LABS: Follicle Stimulating Hormone 8.1 mIU/mL; Lutenizing Hormone 10.6 mIU/mL
== END 2023-02-19 08:16 | disposition home or self-care (01) ==
LOC: HO.LAB 08:15
PROVIDERS: PCP Internal Medicine; Visit Provider Obstetrics & Gynecology
DX: Z30.09 Encounter for other general counseling and advice on contraception (principal); N93.9 Abnormal uterine and vaginal bleeding, unspecified; N92.0 Excessive and frequent menstruation with regular cycle
CPT/HCPCS: 36415; 81025; 83001; 83002; 84443; 84702; 85027; 86780; 86803; 87340; 87389

== ENCOUNTER 2023-03-17 08:56 | Outpatient (REF) | payer OTHER, SELFPAY ==
--- NOTE | ~2023-03-17 | XR_ITS ---
EXAMINATION: XR KNEE, RIGHT CLINICAL INFORMATION: Chondromalacia patellae, unspecified knee Pain COMPARISON: None available. TECHNIQUE: Three views of the right knee. FINDINGS: The bones are intact. No fracture or joint effusion. Alignment is anatomic. There is evidence of prior ACL repair with 2 screws in the distal femur and a screw in the proximal medial tibia and a second anchor in the proximal medial tibial shaft evidence of a tunnel is seen within the tibia. There is moderate narrowing of the medial joint compartment with marginal osteophyte formation. There is mild narrowing of the patellofemoral joint compartment. There is tricompartment marginal osteophyte formation. XR/XR knee RT 3V IMPRESSION: 1. No acute bony abnormality. 2. Status post ACL repair. 3. Moderate osteoarthritis.
--- NOTE | ~2023-03-17 | XR_ITS ---
EXAMINATION: XR SHOULDER, LEFT CLINICAL INFORMATION: Other specified post procedural is states Pain COMPARISON: None available. TECHNIQUE: AP external rotation, Grashey, scapular Y, and axillary views of the left shoulder. FINDINGS: The bones and soft tissues are normal. No fracture. Glenohumeral and acromioclavicular alignment is anatomic with normal joint space. No abnormal soft tissue calcifications. XR/XR shoulder LT min 2V IMPRESSION: No bony abnormality.
--- NOTE | ~2023-03-17 | XR_ITS ---
EXAMINATION: XR KNEE, LEFT CLINICAL INFORMATION: Patellar chondromalacia COMPARISON: None available. TECHNIQUE: Four views of the left knee. FINDINGS: Bones and soft tissues are normal. No fracture or joint effusion. Alignment is anatomic. Joint spaces are well maintained. No abnormal soft tissue calcification. XR/XR knee LT 3V IMPRESSION: Normal left knee.
== END 2023-03-17 08:57 | disposition home or self-care (01) ==
LOC: HO.XRAY 08:56
PROVIDERS: PCP Internal Medicine; Visit Provider Internal Medicine Rheumatology
DX: M22.40 Chondromalacia patellae, unspecified knee (principal); M79.7 Fibromyalgia; Q79.60 Ehlers-Danlos syndrome, unspecified; Z98.890 Other specified postprocedural states; Z79.899 Other long term (current) drug therapy
CPT/HCPCS: 73030; 73562

== ENCOUNTER → 2023-03-25 12:11 | Outpatient (BNVA) | payer OTHER, SELFPAY | PROVIDERS: PCP Physician Assistant; Visit Provider Obstetrics & Gynecology | DX: Z30.430 Encounter for insertion of intrauterine contraceptive device (principal); Z53.8 Procedure and treatment not carried out for other reasons | CPT/HCPCS: 58300; 81025 ==

== ENCOUNTER 2023-04-29 12:50 | Outpatient (REF) | payer OTHER, SELFPAY ==
[2023-04-30 11:26] LABS: CT PCR NOT DETECTED (Not Detect.); NG PCR NOT DETECTED (Not Detect.)
[2023-04-30 14:07] LABS: BV Int Neg Control Negative (Negative); BV Int Pos Control Positive (Positive)
== END 2023-04-29 12:51 | disposition home or self-care (01) ==
LOC: HO.LNP 12:50
PROVIDERS: PCP Physician Assistant; Visit Provider Obstetrics & Gynecology
DX: A60.00 Herpesviral infection of urogenital system, unspecified (principal)
CPT/HCPCS: 0353U; 87255; 87480; 87510; 87660

== ENCOUNTER 2023-04-29 12:50 | Outpatient (AMB) | payer OTHER, SELFPAY ==
--- NOTE | 2023-04-29 12:51 | A.OFFVIS_ITS ---
Intake Vital Signs 04/29/23 12:54 Height 5 ft 3 in Weight 156 lb 8.451 oz BMI 27.7 BP 116/68 Intake Visit Reasons: outbreak Inlayer Required: No Information Interpreted: non-clinical & clinical Green Building Engineer: Green Building Engineer Present (Elba GARCIA) Accompanied by: Self / Same As Patient Allergies erythromycin base [ERYTHROMYCIN BASE] Allergy (Severe, Verified 04/29/23 12:55) PANCREATITIS Penicillins [PCN] Allergy (Severe, Verified 04/29/23 12:55) HIVES Is last menstrual period known: Yes Last menstrual period: 04/25/23 HPI HPI Comments 2 History of Present Illness Details Presenting complaining of outbreak of lesions on the vulva that the tender in nature patient went to urgent care few weeks ago with the same outbreak had a swab and was negative PFSH Medical History Atypical chest pain EDS (Juan-Danlos syndrome) Menorrhagia On anticoagulant therapy GEORGES (obstructive sleep apnea) Pulmonary embolism Subchondral sclerosis Subchondral sclerosis Syncope and collapse Surgical History H/O bilateral breast reduction surgery H/O knee surgery H/O shoulder surgery (~02/2019) History of back surgery Hx of section Family History Paternal Aunt Breast cancer Father Diabetes High cholesterol HTN (hypertension) Maternal Uncle Stroke Maternal Grandfather Emphysema lung Lung cancer Maternal Grandmother Asthma Son Asthma Social History Household Members: Children Housing: Apartment Do you presently have visiting nurse or other home services: Yes (home health aid for housekeeping) Alcohol intake: never Patient Tobacco Use Status: Never used Tobacco Second Hand Smoke Exposure: No Substance Use Type: Marijuana service: No Current occupational status: employed 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 Gender identity: Female Female Reproductive History Menstrual Age of Menarche: 14 Date of last menstrual period: 04/25/23 Review of Systems Const All systems reviewed & are unremarkable except as noted in HPI and below Physical Exam Vital Signs: Last Vital Signs BP 116/68 04/29/23 12:54 BMI result Body Mass Index 27.7 General: Yes no CVA tenderness External Female Exam: normal appearance of the urethra and other (Bilateral multiple vesicles tender herpes like) Speculum Exam - Vagina: normal appearance of the vagina, normal palpation, no lesions and no masses Speculum Exam - Cervix: normal appearance of the cervix, normal palpation, no lesions, no masses and nontender Bimanual exam- vagina & uterus: normal bimanual exam, normal palpation, uterine size normal, normal palpation, uterine shape normal, No Cervical tenderness present and non-tender Bimanual Exam- Adnexa, other: normal adnexae Back/Spine/Pelvis Back: no CVA tenderness Assessment & Plan Assessment & Plan (1) Herpes genitalia: Code(s): A60.00 - Herpesviral infection of urogenital system, unspecified Plan: Discussed with the patient the findings on physical exam, diagnosis being suspicious for herpes and the mode of transmission. Will rule out other STDs including RPR, hep B and C, HIV, GC and chlamydia and Trichomonas. Valtrex Prescription 500 mg p.o. b.i.d. for 5 days days for episodic therapy outbreak was sent to the patient pharmacy with 6 refills. Instructions given the patient to discontinue Tizanidone intake during Valtrex course because of the int eraction. all questions answered patient verbalized understanding. Orders: Orders Bacterial Vaginosis Panel Today A60.00 - Herpesviral infection of urogenital system, unspecified CT NG by PCR Today A60.00 - Herpesviral infection of urogenital system, u nspecified Herpes Virus Culture rflx Type Today A60.00 - Herpesviral infection of urogenital system, unspecified Medications: New valacyclovir (Valtrex) Start 1 tablet twice a day for 3 days p.r.n. out break 500 mg PO BID 3 days 6 tabs 6RF Discontinued tizanidine Discontinued Reason: Doctor's Order 4 mg PO Q8H PRN 90 tabs 3RF for muscle spasm M79.7 - Fibromyalgia Coding Level of Care Code Est Pt Level 3 (38617) Diagnoses Herpes genitalia A60.00
[2023-04-29 12:54] VITALS: BP 116/68; BMI 27.7
== END 2023-04-29 15:53 | disposition home or self-care (01) ==
LOC: HO.HWS 12:50
PROVIDERS: PCP Physician Assistant; Visit Provider Obstetrics & Gynecology
DX: A60.00 Herpesviral infection of urogenital system, unspecified (principal)
CPT/HCPCS: 99213

== ENCOUNTER 2023-05-05 09:12 | Outpatient (AMB) | payer OTHER, SELFPAY ==
[2023-05-05 09:14] VITALS: BP 106/68; PULSE 78; O2SAT 100; BMI 31.0
--- NOTE | 2023-05-05 09:14 | MHC.PC.OV ---
Vital Signs 05/05/23 09:14 Height 5 ft 3 in Weight 175 lb BMI 31.0 BP 106/68 Blood Pressure Location Lt brachial Position Sitting Pulse 78 Pulse Source Pulse Oximeter Pulse Oximetry (%) 100 Oxygen Delivery Method Room Air Intake Visit Reasons: PHYSICAL Allergies erythromycin base [ERYTHROMYCIN BASE] Allergy (Severe, Verified 05/05/23 09:40) PANCREATITIS Penicillins [PCN] Allergy (Severe, Verified 05/05/23 09:40) HIVES Medication List - Last Reconciled 05/05/23 by Betito Rico PA-C acetaminophen ER 650 mg PO Q8H aripiprazole 5 mg PO DAILY cholecalciferol (vitamin D3) 50 mcg PO DAILY clonazepam 0.5 mg PO BID PRN dextroamphetamine-amphetamine 20 mg ER 1 cap PO QAM dextroamphetamine-amphetamine 30 mg ER 30 mg PO QAM diclofenac sodium 1% grams topical docusate sodium 100 mg PO BID fluoxetine (Prozac) 40 mg PO DAILY ibuprofen 800 mg PO Q8H pregabalin 300 mg PO BID trazodone 50 mg PO BEDTIME valacyclovir (Valtrex) 500 mg PO BID 3 days Tobacco use date assessed: 05/05/23 Dental Screening Dental Screen Date: 05/05/23 Did you have a dental visit in the last 12 months?: Yes Did you have a dental problem in the last 6 months where you did not have access to dental care?: No Was dental information given to patient?: Patient has dentist HPI PHYSICAL HPI Details Pateint is a 47 y/u F here today for a new patient annual physical. Patient has a past medical history significant for EDS, fibromyalgia, ADHD, mood disorder. .. Mood disorder/ADHD: Followed by a therapist and a psychiatrist whom is working well with her. She feels stable from a mental health point of view. .. EDS : Followed by a business and marketing teacher and gets injections which have helped reduce her joint pains. Has had multiple surgeries on her knees and neck related to her EDS and disc disorder. Was previously on narcotic pain medication though has been able to get off. Continues on pregabalin which has been helpful reducing her widespread pain. She would like to continue seeing a chief of vital statistics as she reports having a genetic disorder/disposition to EDS. .. ADJUSTER AND INSPECTOR: Is followed by [facility], has done Pap smear which was normal . Colon cancer screening: Willing to do colonoscopy Mammogram: Willing to get mammogram done [facility] Medical History Atypical chest pain EDS (Juan-Danlos syndrome) Menorrhagia On anticoagulant therapy GEORGES (obstructive sleep apnea) Pulmonary embolism Subchondral sclerosis Subchondral sclerosis Syncope and collapse Surgical History H/O bilateral breast reduction surgery H/O knee surgery H/O shoulder surgery (~02/2019) History of back surgery Hx of section Family History Paternal Aunt Breast cancer Father Diabetes High cholesterol HTN (hypertension) Maternal Uncle Stroke Maternal Grandfather Emphysema lung Lung cancer Maternal Grandmother Asthma Son Asthma Social History (Updated 05/05/23 @ 09:52 by Betito Rico PA-C) Household Members: Children Housing: Apartment Do you presently have visiting nurse or other home services: Yes (home health aid for housekeeping) Alcohol intake: current Alcohol intake frequency: holidays/special occasions only Patient Tobacco Use Status: Never used Tobacco Second Hand Smoke Exposure: No Substance Use Type: Marijuana service: No Current occupational status: employed 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 1. Little interest or pleasure in doing things: not at all 2. Feeling down, depressed, or hopeless: not at all 3. Trouble falling or staying asleep, or sleeping too much: not at all 4. Feeling tired or having little energy: not at all 5. Poor appetite or overeating: not at all 6. Feeling bad about yourself - or that you are a failure or have let yourself or your family down: not at all 7. Trouble concentrating on things, such as reading the newspaper or watching television: not at all 8. Moving or speaking so slowly that other people could have noticed. Or the opposite - being so fidgety or restless that you have been moving around a lot more than usual: not at all 9. Thoughts that you would be better off or of hurting yourself in some way: not at all Total score: 0 Depression Screening Interpretation: Negative 99167 - PHQ-9 Billing: Yes Source: Developed by Drs. Joseluis Chew, Tameka Lane, Jose J Josue and colleagues, with an educational ligia from [employer]. Thrive Questionnaire Date Thrive assessed: 05/05/23 I am a: Patient What is your living situation today?: I have a steady place to live Within the past 12 months, did the food you bought not last and you didn't have the money to get more?: Never true Within the past 12 months, did you worry whether your food would run out before you got money to buy more?: Never true AUDIT C Alcohol Use Questionnaire (AUDIT-C) 1. How often do you have a drink containing alcohol?: Never 3. How often do you have six or more drinks on one occasion?: Never Total Score: 0 ARLENE-7 AMB Questionnaire ARLENE-7 Date ARLENE - 7 assessed: 05/05/23 Feeling nervous, anxious, or on edge: 0 = Not at all Not being able to stop or control worryin = Not at all Worrying too much about different things: 0 = Not at all Trouble relaxin = Not at all Being so restless that it is hard to sit still: 0 = Not at all Becoming easily annoyed or irritable: 0 = Not at all Feeling afraid as if something awful might happen: 0 = Not at all Total ARLENE-7 score (0-4 normal; 5-9 mild; 10-14 moderate; 15-21 severe): 0 Source: Developed by Drs. Joseluis Chew, Tameka Lane, Jose J Josue and colleagues, with an educational ligia from [employer]. ARLENE-7 Assessment Billing ARLENE-7 Assessment Tool: ARLENE-7 Assessment 15632 Review of Systems Const Denies body aches, Denies chills, Denies excessive sweating, Denies fatigue, Denies fever(s) and Denies headache(s) Eyes Denies blurry vision ENT Denies dysphagia, Denies vertigo, Denies dizziness, Denies headache(s), Denies hearing loss, Reports neck pain and Denies tinnitus Card Denies chest pain, Denies chest pain with activity, Denies syncope, Denies irregular heart rhythm and Denies dyspnea Resp Denies chest congestion, Denies cough, Denies hemoptysis, Denies dyspnea and Denies wheezing GI Denies abdominal pain, Denies melena, Denies hematochezia, Denies coffee ground emesis, Denies dysphagia, Denies diarrhea, Denies nausea and Denies vomiting Denies urinary frequency, Denies dysuria, Denies urinary hesitancy and Denies urinary urgency Musc Details: + bilateral shoulder and neck pains Reports back pain, Reports arthralgias, Denies limited range of motion, Denies muscle cramps, Denies muscle weakness and Reports neck pain Skin/Breast Denies rash and Denies skin ulcer Neuro Denies Abnormal speech present, Denies confusion, Denies vertigo, Denies dizziness, Denies syncope, Denies headache(s), Denies memory loss and Denies seizure-like activity Psych Denies anxiety, Denies confusion, Denies depression, Denies memory loss, Denies panic attacks and Denies paranoia Endo Denies excessive sweating, Denies fatigue, Denies flushing, Denies polydipsia and Denies polyuria Aller/Immun Denies wheezing Physical exam (Primary Care) Vital Signs: Last Vital Signs Pulse 78 05/05/23 09:14 BP 106/68 05/05/23 09:14 Pulse Ox 100 05/05/23 09:14 Oxygen Delivery Method Room Air 05/05/23 09:14 BMI result Body Mass Index 31.0 BMI Assessment/Plan discussion: High Tobacco/Smoking Status: Tobacco use Status Tobacco use date assessed 05/05/23 05/05/23 09:19 Patient Tobacco Use Status Never used Tobacco 05/05/23 09:52 PHQ-9: PHQ-9 Score PHQ-9: Total score 0 05/05/23 10:10 Depression Screening Interpretation: Negative Thrive Assessment: Date of Thrive Assessment Date Thrive assessed 05/05/23 05/05/23 09:19 Const Other: Obese General: cooperative, comfortable, no acute distress, alert and awake; No confusion Orientation/consciousness: oriented to person, oriented to place, patient oriented x3 and No confusion HENMT Head: Yes normocephalic Ears: external ears normal and TM's normal bilaterally Face and sinus: No sinus tenderness Mouth: Normal oral and palatal mucosa present and tongue normal Teeth and gingiva: dentition normal and gingiva normal Throat: Yes posterior oropharynx normal, Yes tonsils normal and Yes uvula midline Eyes Conjunctivae: conjunctivae normal Sclerae: sclerae normal Pupils: Equal, round and reactive pupils present EOM: EOMs intact bilaterally Direct Ophthalmoscopy: No no photophobia Neck Neck: Yes no lymphadenopathy, No tender and Yes no JVD Thyroid: Thyroid normal Carotids: no bruits Chest Chest palpation & inspection: no tenderness Resp Effort & Inspection: normal respiratory effort, no audible wheezes, not labored and no stridor Auscultation: no crackles, no rales, no rhonchi and no wheezes Cardio Jugular venous distension: no JVD Rate: regular rate, not bradycardic and not tachycardic Rhythm: regular rhythm Bruits: no carotid bruits Peripheral pulses: Peripheral pulses 2+ throughout GI Inspection: Yes normal to inspection, No abdominal wall ecchymosis and No visible herniation Palpation (GI): Soft to palpation, nontender, no guarding, not rigid and No hepatosplenomegaly present Auscultation: normoactive bowel sounds General: Yes no CVA tenderness Back/Spine/Pelvis Back: no CVA tenderness and No back tenderness Cervical Spine: cervical ROM normal Thoracic/Lumbar Spine: thoracic and lumbar spine normal to inspection, straight leg raise negative bilaterally, No thoraco-lumbar ROM limited and No lumbar spinal tenderness Skin Lesions: no lesions Rashes: no rashes Wounds: no wounds Neuro General: oriented to person, oriented to place, patient oriented x3, CN's II-XI intact bilaterally and No confusion Cranial nerves: Yes Equal, round and reactive pupils present and Yes Normal accommodation reflex present Cognition (Neuro): normal cognition Speech: No Abnormal speech present Gait exam (Neuro): Normal gait present Motor exam (neuro): 5/5 motor strength present throughout Extrem Right upper extremity: full ROM; no cyanosis Left upper extremity: full ROM; no cyanosis Right lower extremity: no edema Left lower extremity: no edema Psych Appearance: grossly normal Mental Status: mental status grossly normal Affect: normal affect Attitude: cooperative Thought process: Normal thought process present Immunizations Boostrix Tdap Performing Provider: Betito Rico PA-C Administered by: RADHA Gutierrez on 05/05/23 10:10 Dose Route Admin Location Lot Number Expiration Date NDC Early Years Teacher 0.5 mL IM Left Deltoid [id number] 07/22/25 [id number] [employer] VIS Given Date VIS Provided VIS Publication Date 05/05/23 Single Vaccine 21 Eligibility Eligibility Date Funding Source Not [facility] Eligible 05/05/23 Private Assessment and Plan Assessment & Plan (1) Annual physical exam: Code(s): Z00.00 - Encounter for general adult medical examination without abnormal findings (2) EDS (Juan-Danlos syndrome): Comment: Hyperextensible joints with several orthopedic surgeries. Not aware of any affectation of heart or blood vessels Code(s): Q79.60 - Juan-Danlos syndrome, unspecified Plan: Continues to follow a business and marketing teacher whom gives her injections and handles her medications for pain. She reports her pain has been fairly controlled with pregabalin. Would like to follow-up with chief of vital statistics about her genetic disposition to EDS (3) MDD (major depressive disorder), recurrent episode, moderate: Code(s): F33.1 - Major depressive disorder, recurrent, moderate Plan: Continues to follow psychiatry and continues on SSRI therapy and mood stabilizer. She feels she is stable from a mental health point of view. ---> Did have trouble with major /severe depression after her grandmother had passed. (4) Colon cancer screening: Code(s): Z12.11 - Encounter for screening for malignant neoplasm of colon (5) Breast cancer screening: Code(s): Z12.39 - Encounter for other screening for malignant neoplasm of breast Qualifiers: Breast cancer screening modality: mammogram Qualified Code(s): Z12.31 - Encounter for screening mammogram for malignant neoplasm of breast (6) Screening for diabetes mellitus (DM): Code(s): Z13.1 - Encounter for screening for diabetes mellitus (7) Borderline high cholesterol: Code(s): E78.9 - Disorder of lipoprotein metabolism, unspecified Plan: Has a history of borderline high cholesterol. Also taking antipsychotic medication. Will check fasting lipid panel. (8) Obese: Code(s): E66.9 - Obesity, unspecified Qualifiers: Obesity type: due to excess calories Obesity classification: adult class 1 (BMI 30 - 34.9) Serious obesity comorbidity presence: without serious comorbidity Body mass index: BMI 31.0-31.9 Qualified Code(s): E66.09 - Other obesity due to excess calories; Z68.31 - Body mass index [BMI] 31.0-31.9, adult Plan: Has gained weight since increasing her psychiatric medications. Patient does understand her BMI is at 31 will work on being more physically active and adapting to better eating habits to reduce her weight. Orders: Orders Comprehensive [place]. Panel Fast Today Z13.1 - Encounter for screening for diabetes mellitus Lipid Panel Today E78.9 - Disorder of lipoprotein metabolism, unspecified MM screening mammo BI Today Z12.31 - Encounter for screening mammogram for malignant neoplasm of breast TDaP Immunization Today F33.1 - Major depressive disorder, recurrent, moderate, Z23 - Encounter for immunization Referrals Gastroenterology Referral Z12.11 - Encounter for screening for malignant neoplasm of colon Genetics Referral Q79.60 - Juan-Danlos syndrome, unspecified Medications: Changed From cholecalciferol (vitamin D3) 50 mcg PO DAILY F33.1 - Major depressive disorder, recurrent, moderate To cholecalciferol (vitamin D3) 50 mcg PO DAILY 90 caps 1RF 90 days F33.1 - Major depressive disorder, recurrent, moderate Coding Level of Care Code New Pt Prev Care 40-64y(82821) Diagnoses Annual physical exam Z00.00 EDS (Juan-Danlos syndrome) Q79.60 MDD (major depressive disorder), recurrent episode, moderate F33.1 Colon cancer screening Z12.11 Breast cancer screening Z12.31 Breast cancer screening modality: mammogram Screening for diabetes mellitus (DM) Z13.1 Borderline high cholesterol E78.9 Obese E66.09; Z68.31 Obesity type: due to excess calories Obesity classification: adult class 1 (BMI 30 - 34.9) Serious obesity comorbidity presence: without serious comorbidity Body mass index: BMI 31.0-31.9 Additional Codes ARLENE-7 Assessment Billing - ARLENE-7 Assessment Tool: ARLENE-7 Assessment 45327 ([id number])
== END 2023-05-05 11:43 | disposition home or self-care (01) ==
PROVIDERS: PCP Physician Assistant; Visit Provider Physician Assistant
DX: Z00.00 Encounter for general adult medical examination without abnormal findings (principal); F33.1 Major depressive disorder, recurrent, moderate; Z68.31 Body mass index [BMI] 31.0-31.9, adult; Z23 Encounter for immunization; Q79.60 Ehlers-Danlos syndrome, unspecified; Z12.11 Encounter for screening for malignant neoplasm of colon; E66.09 Other obesity due to excess calories; Z12.31 Encounter for screening mammogram for malignant neoplasm of breast; Z13.1 Encounter for screening for diabetes mellitus; E78.9 Disorder of lipoprotein metabolism, unspecified
CPT/HCPCS: 90471; 90715; 99386

== ENCOUNTER 2023-05-05 13:20 | Emergency (ER) | payer OTHER, MEDICARE, MEDICAID, SELFPAY ==
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
--- NOTE | ~2023-05-05 | CT_ITS ---
EXAMINATION: CT CERVICAL SPINE WITHOUT CONTRAST CLINICAL INFORMATION: Neck pain COMPARISON: None available. TECHNIQUE: Noncontrast CT imaging of the cervical spine is performed. The axial images and multiplanar reformatted images are reviewed. This CT examination was performed using dose optimization techniques as appropriate, variously including the following: *Automated exposure control *Adjustment of mA and/or kV according to patient size (this includes techniques or standardized protocols for targeted exams where dose is matched to indication/reason for exam; i.e. extremities or head) *Use of iterative reconstruction technique DLP: 1187 mGy-cm FINDINGS: The craniocervical junction is normal. The cervical vertebra have normal height and alignment. No focal lytic or osteoblastic lesion. No fracture, subluxation, prevertebral edema or soft tissue hematoma. The dens and atlantodental articulation are intact. The facet joints are normal. There is mild dextrocurvature of the cervical spine. The disc spaces are well-preserved at C2-C3 and C3-C4. At C4-C5, there is [id number] degenerative loss of disc height and mild vertebral osteophyte formation. The uncovertebral joints are hypertrophied at C4-C5 and osteophytes mildly narrow the neural foramina (left worse than right). No spinal canal stenosis. There has been discectomy and anterior fusion at C5-C6. The bone graft is incorporated into the vertebral endplates. The anterior fusion plate and screws are well-positioned; no hardware loosening. Mild narrowing of disc space and small osteophytes at C6-C7. C7-T1 is unremarkable. The visualized upper thoracic vertebra are normal. Soft tissues of neck are unremarkable. No lymphadenopathy. Thyroid gland is normal. The visualized lung apices are normal. CT/CT cervical spine wo IV con IMPRESSION: * No acute imaging abnormalities within the cervical spine. No fracture or malalignment. * [id number]-mh-czjjuncy disc degenerative change, bilateral uncovertebral joint hypertrophy and mild neural foraminal stenosis (left more so than right) at C4-C5. * Postoperative changes from discectomy and anterior fusion at C5-C6. No loosening of the spinal fusion hardware.
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
[2023-05-05 13:24] VITALS: BP 102/70; PULSE 68; O2SAT 97
[2023-05-05 13:43] VITALS: BP 112/74; PULSE 61; RESP 16; TEMP 36.3; O2SAT 97; BMI 31.0
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
[2023-05-05 14:43] LABS: MANUAL DIFF FLAG NO
[2023-05-05] MEDS: Ketorolac Tromethamine 15 MG/ML VIAL IVPUSH (14:47)
[2023-05-05 14:48] LABS: Appearance Urine Clear; Color Urine Yellow; Glucose Urine UA Negative (Negative); Leukocyte Esterase Urine Negative (Negative); Nitrite Urine Negative (Negative); Specific Gravity - Urine <= 1.005 (1.005-1.025); Urine Blood Negative (Negative); Urine Ketones Negative (Negative); Urine Protein Negative (Neg-Trace)
[2023-05-05 14:49] LABS: Basophils Percent Auto 0.6 % (0-2); Eosinophils Absolute Auto 0.1 X10*3/uL (0.0-0.4); Hematocrit 39.1 % (37.0-47.0); Hemoglobin 12.1 g/dl (12.0-16.0); Imm Gran Abs Auto 0.01 X10*3/uL (0.00-0.03); Imm Gran Pct Auto 0.1 % (0.0-0.4); Lymphocytes Absolute Auto 2.3 X10*3/uL (1.2-4.9); Lymphocytes Percent Auto 32.5 % (20-40); Mean Corpuscular HGB Conc 30.9 g/dl (31.0-35.0); Mean Corpuscular Volume 90.5 fL (80.0-98.0); Mean Platelet Volume 9.6 fL (9.4-12.3); Monocytes Absolute Auto 0.5 X10*3/uL (0.1-1.2); Monocytes Percent Auto 7.2 % (2-11); Neutrophils Percent Auto 57.6 % (45-73); Platelet Count 350 X10*3/uL (160-400); Red Blood Count 4.32 X10*6/uL (4.20-5.50); Red Cell Distribution Width 13.6 % (11.0-16.0)
[2023-05-05 14:50] LABS: Bacteria Urine None Seen (None Seen); Hyaline Casts Urine 0-2 /LPF (0-2); RBC Urine 0-2 /HPF (0-2); Squamous Epithelial Cell Urine 0-2 /HPF (0-2); WBC Urine 0-5 /HPF (0-5)
[2023-05-05 14:55] LABS: UPreg QC Valid YES; Urine Pregnancy NEGATIVE (NEGATIVE)
[2023-05-05 14:59] LABS: Anion Gap 11 (12-20); Blood Urea Nitrogen 9 mg/dL (9-16); Calcium 9.1 mg/dL (8.4-10.2); Carbon Dioxide 32 mmol/L (22-29); Chloride 103 mmol/L (96-108); Creatinine Clr Calc Pharmacy 90.8; Estimated Glomerular Filt Rate > 60; Glucose Random 83 mg/dL (60-115); Potassium 3.8 mmol/L (3.3-5.1); Sodium 142 mmol/L (135-145)
[2023-05-05] MEDS: iohexoL 350 MG/ML 100 ML INFUS..BTL IV (15:12)
== END 2023-05-05 17:12 | disposition home or self-care (01) ==
PROVIDERS: Emergency Provider Emergency Medicine Emergency Medical Services; PCP Physician Assistant
DX: S09.90XA Unspecified injury of head, initial encounter (principal); V43.52XA Car driver injured in collision with other type car in traffic accident, initial encounter; K80.20 Calculus of gallbladder without cholecystitis without obstruction; Y93.89 Activity, other specified; Y92.414 Local residential or business street as the place of occurrence of the external cause; Y99.9 Unspecified external cause status; F12.90 Cannabis use, unspecified, uncomplicated; Z86.711 Personal history of pulmonary embolism; Z79.899 Other long term (current) drug therapy; Z79.01 Long term (current) use of anticoagulants
CPT/HCPCS: 36415; 70450; 71260; 72125; 74177; 80048; 81001; 81025; 85025; 96374; 99284; J1885; Q9967

== ENCOUNTER 2023-05-11 07:44 | Outpatient (REF) | payer OTHER, SELFPAY ==
[2023-05-11 08:43] LABS: Alanine Aminotransferase 21 U/L (0-31); Albumin Level 3.9 g/dL (3.5-5.0); Alkaline Phosphatase 70 U/L (39-117); Anion Gap 15 (12-20); Aspartate Amino Transferase 22 U/L (5-31); Bilirubin Total 0.2 mg/dL (0.0-1.0); Blood Urea Nitrogen 10 mg/dL (9-16); Calcium 9.2 mg/dL (8.4-10.2); Carbon Dioxide 26 mmol/L (22-29); Chloride 103 mmol/L (96-108); Cholesterol 214 mg/dL; Estimated Glomerular Filt Rate > 60; Glucose Fasting 98 mg/dL (60-99); HDL Cholesterol 58 mg/dL; LDL Cholesterol Calculated 135 mg/dl; Potassium 3.9 mmol/L (3.3-5.1); Sodium 140 mmol/L (135-145); Total Protein 7.4 g/dL (6.5-8.0); Triglycerides 107 mg/dL
== END 2023-05-11 07:45 | disposition home or self-care (01) ==
LOC: HO.LAB 07:44
PROVIDERS: PCP Physician Assistant; Visit Provider Physician Assistant
DX: Z13.1 Encounter for screening for diabetes mellitus (principal); E78.9 Disorder of lipoprotein metabolism, unspecified
CPT/HCPCS: 36415; 80053; 80061

== ENCOUNTER 2023-05-14 07:27 | Outpatient (AMB) | payer OTHER, SELFPAY ==
--- NOTE | 2023-05-14 07:49 | A.OFFVIS_ITS ---
Intake Vital Signs 05/14/23 07:54 Height 5 ft 3 in Weight 175 lb BMI 31.0 BP 106/60 Blood Pressure Location Lt brachial Position Sitting Pulse 95 Intake Visit Reasons: Colonoscopy Screening Intake Note: Patient new consult for 1st pre colonoscopy screening. Patient cc: between diarrhea/constipation, GERD with burning sensation, some abdominal pain, couples of month patient was with rectal bleeding. Boat Hoist Operator Required: No Allergies erythromycin base [ERYTHROMYCIN BASE] Allergy (Severe, Verified 05/14/23 07:44) PANCREATITIS Penicillins [PCN] Allergy (Severe, Verified 05/14/23 07:44) HIVES Medication List - Last Reconciled 05/14/23 by Ximena Howard PA-C acetaminophen ER 650 mg PO Q8H aripiprazole 5 mg PO DAILY cholecalciferol (vitamin D3) 50 mcg PO DAILY 90 days clonazepam 0.5 mg PO BID PRN dextroamphetamine-amphetamine 20 mg ER 1 cap PO QAM dextroamphetamine-amphetamine 30 mg ER 30 mg PO QAM diclofenac sodium 1% grams topical docusate sodium 100 mg PO BID fluoxetine (Prozac) 40 mg PO DAILY ibuprofen 400 mg PO Q6H PRN ibuprofen 800 mg PO Q8H pregabalin 300 mg PO BID trazodone 50 mg PO BEDTIME valacyclovir (Valtrex) 500 mg PO BID 3 days HPI HPI Comments History of Present Illness Details 47-year-old female EDS referred for index screening colonoscopy. She has alternating stool pattern.She had a period where she had diarrhea- for several months- has resolved. 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[employer] she recently changed her jobs to a less physical demanding due to EDS No nausea, vomiting, hematemesis, hematochezia fever chills PFSH Medical History (Updated 05/14/23 @ 08:44 by Ximena Howard PA-C) Atypical chest pain EDS (Juan-Danlos syndrome) Menorrhagia On anticoagulant therapy GEORGES (obstructive sleep apnea) Pulmonary embolism Subchondral sclerosis Subchondral sclerosis Syncope and collapse Surgical History H/O bilateral breast reduction surgery H/O knee surgery H/O shoulder surgery (~02/2019) History of back surgery Hx of section Family History Paternal Aunt Breast cancer Father Diabetes High cholesterol HTN (hypertension) Maternal Uncle Stroke Maternal Grandfather Emphysema lung Lung cancer Maternal Grandmother Asthma Son Asthma Social History Household Members: Children Housing: Apartment Do you presently have visiting nurse or other home services: Yes (home health aid for housekeeping) Alcohol intake: never Patient Tobacco Use Status: Never used Tobacco Second Hand Smoke Exposure: No Substance Use Type: Marijuana service: No Current occupational status: employed 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 Gender identity: Female Cognitive needs: No Hearing needs: No Vision needs: No Female Reproductive History Menstrual Age of Menarche: 14 Review of Systems Const All systems reviewed & are unremarkable except as noted in HPI and below Card Denies chest pain and Denies dyspnea Resp Denies dyspnea GI Denies abdominal pain, Denies hematochezia, Reports heartburn, Denies diarrhea, Denies nausea and Denies vomiting Musc Reports arthralgias Physical Exam Const General: cooperative, healthy appearing, comfortable and no acute distress Orientation/consciousness: patient oriented x3 Limitations: no limitations Resp Effort & Inspection: normal respiratory effort and able to speak in complete sentences Auscultation: clear to auscultation bilaterally, no rales, no rhonchi and no wheezes Cardio Rate: regular rate Rhythm: regular rhythm Heart sounds: S1 normal heart sound present and S2 normal heart sound present GI Palpation (GI): Soft to palpation and nontender Auscultation: normal bowel sounds Neuro General: patient oriented x3 Psych Appearance: grossly normal and well kempt Mental Status: mental status grossly normal Speech and movement: Normal speech and movement present Affect: normal affect Attitude: cooperative Thought process: Normal thought process present Thought content: Normal thought content present Insight: Good insight present (Psych) Judgement: Good judgement present (Psych) Results Reviewed Results Reviewed: ED Assessment & Plan Assessment & Plan (1) Colon cancer screening: Comment: Mother history colon polyps Code(s): Z12.11 - Encounter for screening for malignant neoplasm of colon Plan: Index screening colonoscopy MiraLax Gatorade (2) Chronic GERD: Comment: History GERD, treated in the past however had resolved Recent weight gain-likely plays a role However, works with patient's, will get H pylori breath test if positive will treat Code(s): K21.9 - Gastro-esophageal reflux disease without esophagitis Plan: Try to avoid further weight gain She will begin pantoprazole 20 mg Await results of H pylori if positive will treat Orders: Orders H Pylori Breath Test Today Colonoscopy - GI Use Only Today Z12.11 - Encounter for screening for malignant neoplasm of colon Medications: New pantoprazole 20 mg PO QAM 30 tabs 6RF bisacodyl (Dulcolax (bisacodyl)) Take 4 tablets by mouth at 12:00pm the day before your procedure. 20 mg (4 x 5 mg) PO ONCE 1 day 4 tabs 0RF colonoscopy prep Z12.11 - Encounter for screening for malignant neoplasm of colon polyethylene glycol 3350 (Miralax) Take as directed by mouth the day before your procedure. 238 grams PO ONCE 1 day 238 grams 0RF Patient Instructions: A very pleasant 47-year-old female referred for index screening colonoscopy Discussed procedure, rare risks, need for escorted due to anesthesia as well as MiraLax Gatorade prep literature given Will await H pylori breath test if positive will treat Encouraged to call questions or concerns Coding Level of Care Code New Pt Level 3 (57552) Diagnoses Colon cancer screening Z12.11 Chronic GERD K21.9 Time Spent (min) 30
[2023-05-14 07:54] VITALS: BP 106/60; PULSE 95; BMI 31.0
== END 2023-05-14 08:23 | disposition home or self-care (01) ==
PROVIDERS: PCP Physician Assistant; Visit Provider Physician Assistant
DX: K21.9 Gastro-esophageal reflux disease without esophagitis (principal); Z12.11 Encounter for screening for malignant neoplasm of colon; Z83.71 Family history of colonic polyps
CPT/HCPCS: 99213

== ENCOUNTER 2023-05-14 08:18 | Outpatient (REF) | payer OTHER, SELFPAY ==
[2023-05-15 10:12] LABS: H Pylori Breath Test Negative (Negative)
== END 2023-05-14 08:19 | disposition home or self-care (01) ==
LOC: HO.LNP 08:18
PROVIDERS: PCP Physician Assistant; Visit Provider Physician Assistant
DX: Z11.2 Encounter for screening for other bacterial diseases (principal); K21.9 Gastro-esophageal reflux disease without esophagitis; M17.11 Unilateral primary osteoarthritis, right knee
CPT/HCPCS: 83013

== ENCOUNTER 2023-05-14 14:39 | Outpatient (AMB) | payer OTHER, SELFPAY ==
--- NOTE | 2023-05-14 14:56 | MHC.OFFVIS ---
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 Patient reports pain presented about a couple of month ago and has been getting worse. States nerve pain that starts in anterior aspect of knee and shoots down to her vaughn area. Her pain is worse with walking and stair use. Takes lyrica for nerve pain. Denies injury, numbness or tingling. Finds relief with voltarin gel, lyrica, Tylenol and Motrin. Hx of right knee surgeries, states ACL repair, meniscus repair and a ACL revision. 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 She states she has worsening nerve pain in the anterior aspect of her knee which radiates down to her vaughn area. Her pain is aggravated with ambulation and stair use. She denies any numbness or tingling and has not had any injury in the past. She finds relief with voltaren gel, Lyrica, Tylenol and Motrin. She has a history of ACL reconstruction with revision . [facility] Medical History Atypical chest pain EDS (Juan-Danlos syndrome) Menorrhagia On anticoagulant therapy GEORGES (obstructive sleep apnea) Pulmonary embolism Subchondral sclerosis Subchondral sclerosis Syncope and collapse Surgical History H/O bilateral breast reduction surgery H/O knee surgery H/O shoulder surgery (~02/2019) History of back surgery Hx of section Family History Paternal Aunt Breast cancer Father Diabetes High cholesterol HTN (hypertension) Maternal Uncle Stroke Maternal Grandfather Emphysema lung Lung cancer Maternal Grandmother Asthma Son Asthma Social History Household Members: Children Housing: Apartment Do you presently have visiting nurse or other home services: Yes (home health aid for housekeeping) Alcohol intake: never Patient Tobacco Use Status: Never used Tobacco Second Hand Smoke Exposure: No Substance Use Type: Marijuana service: No Current occupational status: employed 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 Gender identity: Female Cognitive needs: No Hearing needs: No Vision needs: No Female Reproductive History Menstrual Age of Menarche: 14 Review of Systems Const All systems reviewed & are unremarkable except as noted in HPI and below Physical Exam Const General: cooperative, healthy appearing, comfortable, no acute distress, well developed and alert Orientation/consciousness: patient oriented x3 HEENT Head: Yes normal to inspection, Yes normocephalic and Yes atraumatic Eyes General: appearance normal, both eyes and all related structures Resp Effort & Inspection: normal respiratory effort and able to speak in complete sentences Cardio Rate: regular rate Peripheral pulses: Peripheral pulses 2+ throughout GI Palpation (GI): Soft to palpation Skin Lesions: no lesions Rashes: no rashes Neuro General: patient oriented x3 Extrem Other: Right knee: Skin intact, no erythema or joint effusion. Lateral retropatellar tenderness present. Full ROM with crepitus. Negative Raya?s. No ligamentous laxity. NVI. Results Reviewed Results Reviewed: xrays of the right knee obtained on 03/17/23 IMPRESSION: 1. No acute bony abnormality. 2. Status post ACL repair. 3. Moderate osteoarthritis. Assessment & Plan Assessment & Plan (1) Osteoarthritis of right knee: Code(s): M17.11 - Unilateral primary osteoarthritis, right knee Plan We discussed options which include PT, NSAIDs and injections. The patient will defer on formal therapy today and proceed with PT and NSAIDs. She was given some home exercises to work on her right knee. She was also fit for an off the shelf Janumet knee brace in the office today. If symptoms persist, the patient will contact me for an injection, otherwise, PRN. Patient Instructions: Scribed for Fernie North PA-C, by Cristhian Morrison medical affairs specialist, on 05/14/2023 at 3:00 PM EST. Fernie Glass PA-C, have personally reviewed and agree with the information entered by the scribe. Coding Level of Care Code New Pt Level 3 (76975) Diagnoses Osteoarthritis of right knee M17.11
== END 2023-05-14 15:58 | disposition home or self-care (01) ==
PROVIDERS: PCP Physician Assistant; Visit Provider Physician Assistant
DX: M17.11 Unilateral primary osteoarthritis, right knee (principal)
CPT/HCPCS: 99213

== ENCOUNTER 2023-05-19 07:50 | Outpatient (AMB) | payer OTHER, MEDICAID, SELFPAY ==
[2023-05-19 07:53] VITALS: BP 122/74; PULSE 80; O2SAT 98; BMI 31.4
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
== END 2023-05-19 08:18 | disposition home or self-care (01) ==
PROVIDERS: PCP Physician Assistant; Visit Provider Physician Assistant
DX: R07.9 Chest pain, unspecified (principal); T07.XXXA Unspecified multiple injuries, initial encounter; V89.2XXD Person injured in unspecified motor-vehicle accident, traffic, subsequent encounter; Z04.2 Encounter for examination and observation following work accident
CPT/HCPCS: 99213

== ENCOUNTER 2023-06-11 09:55 | Outpatient (AMB) | payer OTHER, SELFPAY ==
--- NOTE | 2023-06-11 09:56 | MHC.OFFVIS ---
Intake Vital Signs 06/11/23 09:57 Height 5 ft 3 in Weight 177 lb BMI 31.4 Intake Visit Reasons: OV-RT knee Synvisc injection Intake Note: Deb a 47 year old female who presents today for a right knee synvisc injection. Allergies erythromycin base [ERYTHROMYCIN BASE] Allergy (Severe, Verified 06/11/23 09:57) PANCREATITIS Penicillins [PCN] Allergy (Severe, Verified 06/11/23 09:57) HIVES HPI OV-RT knee Synvisc injection HPI Details 47-year-old female who returns to the office today for a right knee Synvisc injection. [facility] Medical History Atypical chest pain EDS (Juan-Danlos syndrome) Menorrhagia On anticoagulant therapy GEORGES (obstructive sleep apnea) Pulmonary embolism Subchondral sclerosis Subchondral sclerosis Syncope and collapse Surgical History H/O bilateral breast reduction surgery H/O knee surgery H/O shoulder surgery (~02/2019) History of back surgery Hx of section Family History Paternal Aunt Breast cancer Father Diabetes High cholesterol HTN (hypertension) Maternal Uncle Stroke Maternal Grandfather Emphysema lung Lung cancer Maternal Grandmother Asthma Son Asthma Social History Household Members: Children Housing: Apartment Do you presently have visiting nurse or other home services: Yes (home health aid for housekeeping) Alcohol intake: never Patient Tobacco Use Status: Never used Tobacco e-Cigarette/Vaping Use: Never Used Second Hand Smoke Exposure: No Substance Use Type: Marijuana service: No 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 occupational status: employed 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 Gender identity: Female Cognitive needs: No Hearing needs: No Vision needs: No Female Reproductive History Menstrual Age of Menarche: 14 Review of Systems Const All systems reviewed & are unremarkable except as noted in HPI and below Physical Exam Vital Signs: BMI result Body Mass Index 31.4 Const General: cooperative, healthy appearing, comfortable, no acute distress, well developed and alert Orientation/consciousness: patient oriented x3 HEENT Head: Yes normal to inspection, Yes normocephalic and Yes atraumatic Eyes General: appearance normal, both eyes and all related structures Resp Effort & Inspection: normal respiratory effort and able to speak in complete sentences Cardio Rate: regular rate Peripheral pulses: Peripheral pulses 2+ throughout GI Palpation (GI): Soft to palpation Skin Lesions: no lesions Rashes: no rashes Neuro General: patient oriented x3 Extrem Other: Right knee: Skin intact, no erythema or joint effusion. Lateral retropatellar tenderness present. Full ROM with crepitus. Negative Raya?s. No ligamentous laxity. NVI. Office Procedures Joint Injection/Drain Joint Injection/Drain Details: Hylan G-F 20 [Synvisc-One] ? 48 mg INTRAARTIC .STK-MED ONE Primary Site: right knee Prep: site was prepped using aseptic technique, ethochloride spray was applied and injection warnings given Injected: in the joint Approach Used: anterolateral Procedure: The patient tolerated the procedure well Coding 88003 - Glenohumeral/Tronchanteric Bursa/Intraarticular Procedure code (CPT) selection complete Results Reviewed Results Reviewed: 06/11/23 09:48 Hylan G-F 20 [Synvisc-One] 48 mg INTRAARTIC .STK-MED ONE Assessment & Plan Assessment & Plan (1) Osteoarthritis of right knee: Code(s): M17.11 - Unilateral primary osteoarthritis, right knee Plan She did consent to move forward with the right knee Synvisc 1 injection, which was tolerated well. I recommended rest, ice and elevation and OTC anti-inflammatories PRN for discomfort. If symptoms persist or worsens over the next 6-8 weeks, patient will contact the office, otherwise follow-up as needed. Patient Instructions: Scribed for Fernie North PA-C, by Cristhian Morrison faculty i on call medical assistant, on 06/11/2023 at 9:15 AM EST. IFernie PA-C, have personally reviewed and agree with the information entered by the scribe. Coding Level of Care Code Procedure Only Diagnoses Osteoarthritis of right knee M17.11 CPT Codes Coding - Joint 7: 50820 - Glenohumeral/Tronchanteric Bursa/Intraarticular ([id number])
[2023-06-11 09:57] VITALS: BMI 31.4
== END 2023-06-11 10:04 | disposition home or self-care (01) ==
LOC: HO.HOS 09:55
PROVIDERS: PCP Physician Assistant; Visit Provider Physician Assistant
DX: M17.11 Unilateral primary osteoarthritis, right knee (principal)
CPT/HCPCS: 20610

== ENCOUNTER → 2023-06-11 09:55 | Outpatient (BNVA) | payer OTHER, SELFPAY | PROVIDERS: PCP Physician Assistant; Visit Provider Physician Assistant | DX: M17.11 Unilateral primary osteoarthritis, right knee (principal) | CPT/HCPCS: 20610; J7325 ==

== ENCOUNTER 2023-06-25 07:42 | Outpatient (REF) | payer OTHER, SELFPAY ==
--- NOTE | ~2023-06-25 | MM_ITS ---
EXAMINATION: MM SCREENING DIGITAL BREAST TOMOSYNTHESIS, BILATERAL WITH BREAST IMPLANTS CLINICAL INFORMATION: Screening. Asymptomatic. COMPARISON: Mammography: There are no prior mammograms for comparison. TECHNIQUE: Digital mammography is performed in craniocaudal and mediolateral oblique views along with computer-aided detection (CAD). Digital breast tomosynthesis is performed in implant-displaced craniocaudal and implant-displaced mediolateral oblique views along with computer-aided detection (CAD). Synthesized 2D images are generated from the tomosynthesis. FINDINGS: There are scattered areas of fibroglandular density (ACR BI-RADS breast composition Category b). There are bilateral, retropectoral, mammographically intact saline breast implants. There are no significant masses, abnormal calcifications, or other abnormalities. MM/MM tomosynthesis screen imp BI IMPRESSION: There are no significant changes from prior study. ASSESSMENT: BI-RADS BI-RADS 1 - Negative RECOMMENDATION: Routine annual mammography screening. 1 year F/U This patient's information was entered into a reminder system with a target due date for their next mammogram.
== END 2023-06-25 07:43 | disposition home or self-care (01) ==
LOC: HO.MAMMO 07:42
PROVIDERS: PCP Physician Assistant; Visit Provider Physician Assistant
DX: Z12.31 Encounter for screening mammogram for malignant neoplasm of breast (principal)
CPT/HCPCS: 77063; 77067

== ENCOUNTER → 2023-06-25 08:00 | Outpatient (BNV) | payer OTHER, SELFPAY | PROVIDERS: PCP Physician Assistant; Visit Provider Radiology Diagnostic Radiology | DX: Z12.31 Encounter for screening mammogram for malignant neoplasm of breast (principal) | CPT/HCPCS: 77063; 77067 ==

== ENCOUNTER 2023-07-13 11:07 | Outpatient (AMB) | payer OTHER, SELFPAY ==
--- NOTE | 2023-07-13 11:17 | AM.OFFVISNUR ---
Intake Intake Visit Reasons: flu shot Allergies erythromycin base [ERYTHROMYCIN BASE] Allergy (Severe, Verified 06/11/23 09:57) PANCREATITIS Penicillins [PCN] Allergy (Severe, Verified 06/11/23 09:57) HIVES Office Procedures Flu Questionnaire Does the patient have a severe egg allergy?: No Does the patient have severe life threatening allergies?: No Does the patient have a fever or illness today?: No Has the patient ever had Guillain-Cobb Syndrome?: No Has the patient ever had any past reaction to a flu shot?: No Immunizations flu vacc [id number] 6mos up(PF) 60 mcg(15 mcgx4)/0.5 mL IM syringe Performing Provider: Betito Rico PA-C [facility] Administered by: Israel Palomino RN on 07/13/23 11:05 Dose Route Admin Location Dispensed Lot Number Expiration Date NDC [employer] Property Evaluator 0.5 mL IM Right Deltoid 0.5 mL [id number] 04/10/24 69099-823-15 [facility] VIS Given Date VIS Provided VIS Publication Date 07/13/23 Single Vaccine 21 Eligibility Eligibility Date Funding Source Not VFC Eligible 07/13/23 Private Administration Comments: tolerated well Coding Assessment & Plan Assessment & Plan Orders: Orders Influenza [id number] Immunization Today Z23 - Encounter for immunization
== END 2023-07-13 11:23 | disposition home or self-care (01) ==
PROVIDERS: PCP Physician Assistant; Visit Provider Physician Assistant
DX: Z23 Encounter for immunization (principal)
CPT/HCPCS: 90471; 90686

== ENCOUNTER 2023-07-23 09:07 | Day surgery (SDC) | payer OTHER, SELFPAY ==
[2023-07-21 14:24] VITALS: BMI 31.0
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
[2023-07-23 09:18] VITALS: BMI 31.0
[2023-07-23 09:27] VITALS: BP 106/61; PULSE 61; RESP 16; TEMP 36.2; O2SAT 97
[2023-07-23 09:30] LABS: UPreg QC Valid YES; Urine Pregnancy NEGATIVE (NEGATIVE)
[2023-07-23] MEDS: Lactated Ringers 1,000 ML 100 ML IVCONT (09:32)
--- NOTE | 2023-07-23 09:36 | MHC.SHP ---
Pre-Procedural Eval Section A Date of Service: 07/23/23 Section B Chief Complaint: screening Details of Present Illness: mother with colon polyps Relevant Family History (Specify if Yes): Yes Relevant Social History: None Present Medications: see Short Stay Collaborative assessment Medical History: Significant History (Osteoarthritis Depression GERD (gastroesophageal reflux disease) Atypical chest pain GEORGES (obstructive sleep apnea) On anticoagulant therapy Menorrhagia Pulmonary embolism Syncope and collapse Subchondral sclerosis EDS (Juan-Danlos syndrome)) History of Previous Operations: Relevant previous surgery/procedure and date(s) (Hx of hand surgery History of endometrial ablation H/O bilateral breast reduction surgery Hx of section History of back surgery H/O knee surgery H/O shoulder surgery (~02/2019)) Allergies: Allergies Allergy/AdvReac Type Severity Reaction Status Date / Time erythromycin base Allergy Severe PANCREATITI Verified 07/23/23 09:28 [ERYTHROMYCIN BASE] S Penicillins [PCN] Allergy Severe HIVES Verified 07/23/23 09:28 Review of Systems Sugical H&P ROS: Negative: Constitution, Cardiovascular, Respiratory, Neurological, Psychiatric, Hem-Onc, Allergic/Immunologic, Gastrointestinal, Genitourinary, Musculoskeletal, Integumentary, Endocrine and Eyes/Ears/Nose/Throat Exam Surgical H&P Exam: Normal: HEENT, Normal: Heart, Normal: Lungs, Normal: Extremities, Normal: Abdomen, Normal: Skin and Normal: Neurological Plan Diagnosis/Plan: Unchanged I have reviewed the history and physical and performed a pertinent physical examination on my patient. No changes have occurred unless specified. Time Spent With Patient Time: Total time managing care of this patient today ____ minutes.
--- NOTE | 2023-07-23 10:07 | W.PM.OPN ---
Operative Note Operative Note Date of Service: 07/23/23 Narrative: Operative Information Procedure Description: Colonoscopy Indication: screening Anesthesia: MAC COLONOSCOPY Instrument: Olympus variable stiffness pediatric scope 190L Colonoscopy Monitoring: Vital signs and clinical assessment, continuous EKG monitoring, Pulse oximetry, Carbon Dioxide monitoring and blood pressure monitoring were done throughout the procedure. Colon withdrawal time was 10 minutes. Procedure: The patient was placed in the left lateral decubitis position and pre-procedure medications were administered. After a digital rectal examination of the ano-rectum, the video colonoscope was inserted into the rectum and advanced through the colon to the cecum/TI. The colonoscope was slowly withdrawn in a retrograde panoramic fashion and the colon mucosa was carefully examined including a retroflexed view of the rectum. Findings and interventions are described below. Procedure Difficulty: moderate Findings: Terminal Ileum- unable to intubate due to looping Cecum:normal Ascending Colon: normal Transverse Colon -normal Descending Colon:normal Sigmoid Colon: normal Rectum: Retroflexion with small internal hemorrhoids, grade I Anorectum - normal Colon preparation: [place] Bowel Preparation Scale Right colon; 2 Transverse colon: 2 Left colon; 2 (0 = Unprepared colon segment with mucosa not seen due to solid stool that cannot be cleared. 1 = Portion of mucosa of the colon segment seen, but other areas of the colon segment not well seen due to staining, residual stool and/or opaque liquid. 2 = Minor amount of residual staining, small fragments of stool and/or opaque liquid, but mucosa of colon segment seen well. 3 = Entire mucosa of colon segment seen well with no residual staining, small fragments of stool or opaque liquid) Impression and Post Procedure Diagnosis: internal hemorrhoids Plan: High fiber diet leaflet Avoid straining at stool, epsom salts and sitz bath, anusol supps or cream Repeat Colonoscopy in 10 years or earlier if clinically indicated Above findings were reviewed with the patient and relevant handouts were provided if indicated.
[2023-07-23 10:14] VITALS: BP 101/70; PULSE 58; RESP 20; TEMP 36.6; O2SAT 96
[2023-07-23 10:29] VITALS: BP 107/64; PULSE 69; RESP 18; TEMP 36.6; O2SAT 97
== END 2023-07-23 10:53 | disposition home or self-care (01) ==
PROVIDERS: Nurse Practitioner; PCP Physician Assistant; Visit Provider Internal Medicine Gastroenterology
PROC: 0DJD8ZZ Inspection of Lower Intestinal Tract, Via Natural or Artificial Opening Endoscopic (ICD-10-PCS; CPT 45378; principal; 2023-07-23 10:50)
DX: Z12.11 Encounter for screening for malignant neoplasm of colon (principal); Z83.719 Family history of colon polyps, unspecified; K64.0 First degree hemorrhoids; K21.9 Gastro-esophageal reflux disease without esophagitis; G47.33 Obstructive sleep apnea (adult) (pediatric); I26.99 Other pulmonary embolism without acute cor pulmonale; Q79.60 Ehlers-Danlos syndrome, unspecified; M24.152 Other articular cartilage disorders, left hip; M79.7 Fibromyalgia; F32.A Depression, unspecified; Z79.01 Long term (current) use of anticoagulants; Z79.899 Other long term (current) drug therapy; Z88.0 Allergy status to penicillin; Z88.1 Allergy status to other antibiotic agents; Z79.890 Hormone replacement therapy; F12.90 Cannabis use, unspecified, uncomplicated
CPT/HCPCS: 45378; 81025

== ENCOUNTER → 2023-07-23 09:07 | Outpatient (BNV) | payer OTHER, SELFPAY | PROVIDERS: PCP Physician Assistant; Visit Provider Internal Medicine Gastroenterology | DX: Z12.11 Encounter for screening for malignant neoplasm of colon (principal); K64.0 First degree hemorrhoids | CPT/HCPCS: 45378 ==

== ENCOUNTER 2023-07-23 19:05 | Inpatient (IN) | payer OTHER, SELFPAY ==
--- NOTE | 2023-07-23 19:33 | ECG_ITS ---
Test Reason : MEDICAL CLEARANCE Blood Pressure : / mmHG Vent. Rate : 054 BPM Atrial Rate : 054 BPM P-R Int : 140 ms QRS Dur : 092 ms QT Int : 410 ms P-R-T Axes : 040 081 063 degrees QTc Int : 388 ms Sinus bradycardia Otherwise normal ECG When compared with ECG of 30-MAR-2021 06:34, No significant change was found Referred By: Miltno Weiss Electronically Signed By:ELKE SAMPSON MD
--- NOTE | 2023-07-23 19:34 | ED.GENADULT ---
HPI - General Adult General Chief complaint: Psychiatric Symptoms Stated complaint: 72 hour hold Time Seen by Provider: 07/23/23 19:43 Source: patient and old records reviewed Mode of arrival: ambulatory Limitations: no limitations History of Present Illness HPI narrative: 48 yo female with PMH of EDS, GERD, HLD, depression, fibromyalgia, GEORGES, PE here with c/o recently losing her about a week ago unexpectedly (daughter had alcoholism and from multiorgan system failure) now with overwhelming grief and thoughts of SI. She has just been taking her clonazepam and smoking THC. She has SI, she has been self harming her L wrist. She notes 2 years ago when her grandmother she overdosed on her clonazepam and tizanidine and was intubated - she was very upset and did not want to wake up and could not believe she was saved. Her family is checking on her but she just doesn't know how to live. complaint: SI Onset (ago): week(s) (1) Severity: moderate Exacerbating factors: other (loss of daughter) Associated symptoms: other (superficial abrasions to L forearm) Treatments prior to arrival: none Related Data Home Medications Medication Instructions Recorded Confirmed fluoxetine 40 mg capsule (Prozac) 40 mg PO DAILY 05/14/22 07/23/23 diclofenac sodium 1 % topical gel 1 ea topical DAILY 09/16/22 07/23/23 trazodone 50 mg tablet 50 mg PO BEDTIME 09/16/22 07/23/23 aripiprazole 5 mg tablet 5 mg PO DAILY 03/17/23 07/23/23 clonazepam 0.5 mg tablet 0.5 mg PO BID PRN Anxiety 03/17/23 07/23/23 dextroamphetamine-amphetamine ER 1 cap PO DAILY@1400 07/23/23 07/23/23 20 mg 24hr capsule,extend release dextroamphetamine-amphetamine ER 1 cap PO DAILY@0800 07/23/23 07/23/23 30 mg 24hr capsule,extend release pantoprazole 20 mg tablet,delayed 20 mg PO DAILY 07/23/23 07/23/23 release pregabalin 300 mg capsule 300 mg PO BID 07/23/23 07/23/23 Allergies Allergy/AdvReac Type Severity Reaction Status Date / Time erythromycin base Allergy Severe PANCREATITI Verified 07/23/23 09:28 [ERYTHROMYCIN BASE] S Penicillins [PCN] Allergy Severe HIVES Verified 07/23/23 09:28 Review of Systems Review of Systems: Constitutional : No Fever, No Chills Cardiovascular : No Chest Pain, No SOB Respiratory : No Cough, No Sputum, No Dyspnea Gastrointestinal : No Nausea, No Vomiting, No Diarrhea, No Hematochezia, No Melena Genitourinary : No Dysuria, No Urinary Frequency, No Hematuria Musculoskeletal : No Myalgias Skin : No Skin Lesions, No rash Neuro : No Weakness, No Numbness, No Paresthesias, No Dizziness, No Headache Psych : positive Anxiety, positive Depression, positive SI no HI All other systems reviewed and are negative PMFSH Past Medical History Source: old records reviewed Medical History Osteoarthritis Depression GERD (gastroesophageal reflux disease) Atypical chest pain GEORGES (obstructive sleep apnea) On anticoagulant therapy Menorrhagia Pulmonary embolism Syncope and collapse Subchondral sclerosis EDS (Juan-Danlos syndrome) Surgical History Hx of hand surgery History of endometrial ablation H/O bilateral breast reduction surgery Hx of section History of back surgery H/O knee surgery H/O shoulder surgery (~02/2019) Family History Family History Paternal Aunt Breast cancer Father Diabetes High cholesterol HTN (hypertension) Maternal Uncle Stroke Maternal Grandfather Emphysema lung Lung cancer Maternal Grandmother Asthma Son Asthma Social History Social History Household Members: Children Housing: Apartment Do you presently have visiting nurse or other home services: Yes (home health aid for housekeeping) Alcohol intake: never Patient Tobacco Use Status: Never used Tobacco e-Cigarette/Vaping Use: Never Used Second Hand Smoke Exposure: No Substance Use Type: Marijuana Advance Directives: No Advance Directives Information Provided: No service: No 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 Oriented X3. No acute distress. appears mildly sedated Eyes: Pupils equal, round and reactive to light. ENT: Pharynx normal. Neck: Normal inspection. Neck supple. CVS: Normal heart rate and rhythm. Pulses normal. Respiratory: No respiratory distress. Breath sounds normal. Abdomen: Soft and nontender. Skin: Skin warm and dry. Normal skin color. Normal skin turgor. Extremities: No lower extremity edema. No calf ttp Neuro: Oriented X 3. No motor deficit. No sensory deficit. CN2-12 intact Course Course Course Narrative: RME- 48 year old female presents for evaluation of depression with suicidal ideation. She reports this was triggered by the of her daughter 4 days ago. Plan for care team consult after medical clearance. She will be brought back to the behavioral pod Reevaluation(s) Reevaluation #1: Physician observation started at 847pm. Patient placed in physician observation because the patient needed more time for CARE team to assess the need for psych admission. At the time observation was started the patient's vitals were stable, patient is alert and oriented, Neuro: nonfocal, CV RRR, Lungs clear Medical Decision Making Medical Decision Making [facility] Narrative: 48 yo female with PMH of EDS, GERD, HLD, depression, fibromyalgia, GEORGES, PE who recently lost her 29 year old daughter due to ETOH abuse and liver failure/organ failure in the past week - she comes in with c/o SI and has hx of attempt 2 years ago requiring intubation. She denies ingestion to me. At this time will need labs, CARE team consult. Differential Diagnosis Differential Diagnoses: The differential diagnosis associated with the presentation includes SI, depression, grief reaction Admission/Observation Consideration of admission/observation: Escalation of care including admission/observation considered observe until cleared by CARE team Consult Healthcare Provider Management of the patient was discussed with: Behavioral Health Provider Lab Data [facility] Lab Attestation statement: I reviewed the patient's lab results. no urinary symptoms will wait on culture lipase always elevated denies abdominal pain 07/23/23 20:17 07/23/23 20:17 Labs: Lab Results 07/23/23 07/23/23 Range/Units 20:08 20:17 WBC 7.5 (4.8-10.8) X10*3/uL RBC 4.08 L (4.20-5.50) X10*6/uL Hgb 11.3 L (12.0-16.0) g/dl Hct 35.8 L (37.0-47.0) % MCV 87.7 (80.0-98.0) fL MCH 27.7 (27.0-33.0) pg MCHC 31.6 (31.0-35.0) g/dl RDW 13.9 (11.0-16.0) % Plt Count 317 (160-400) X10*3/uL MPV 9.4 (9.4-12.3) fL Immature Gran % (Auto) 0.4 (0.0-0.4) % Neut % (Auto) 61.0 (45-73) % Lymph % (Auto) 27.3 (20-40) % [place] % (Auto) 7.6 (2-11) % Eos % (Auto) 3.3 (0-4) % Baso % (Auto) 0.4 (0-2) % Lymph # (Auto) 2.1 (1.2-4.9) X10*3/uL [place] # (Auto) 0.6 (0.1-1.2) X10*3/uL Eos # (Auto) 0.3 (0.0-0.4) X10*3/uL Baso # (Auto) 0.0 (0.0-0.2) X10*3/uL Abs Immat Gran (auto) 0.03 (0.00-0.03) X10*3/uL Absolute Neuts (auto) 4.6 (2.0-8.3) x10*3/uL Absolute Nucleated RBC 0.000 (0.0-0.012) X10*3/uL Nucleated RBC % (auto) 0.0 (0.0-0.2) /100WBC Sodium 143 (135-145) mmol/L Potassium 4.1 (3.3-5.1) mmol/L Chloride 108 (96-108) mmol/L Carbon Dioxide 25 (22-29) mmol/L Anion Gap 14 (12-20) BUN 7 L (9-16) mg/dL Creatinine 0.85 (0.5-1.4) mg/dL Estim Creat Clear Calc 82.5 Estimated GFR > 60 Random Glucose 89 (60-115) mg/dL Calcium 8.7 (8.4-10.2) mg/dL Total Bilirubin 0.3 (0.0-1.0) mg/dL AST 18 (5-31) U/L ALT 10 (0-31) U/L Alkaline Phosphatase 91 (39-117) U/L Total Protein 7.5 (6.5-8.0) g/dL Albumin 3.8 (3.5-5.0) g/dL Lipase 122 H (8-78) U/L Urine Color Yellow Urine Appearance Clear Urine pH 5.5 (5.0-9.0) Ur Specific [place] 1.010 (1.005-1.025) Urine Protein Negative (Neg-Trace) mg/dL Urine Glucose (UA) Negative (Negative) mg/dL Urine Ketones Negative (Negative) mg/dL Urine Blood Negative (Negative) Urine Nitrite Negative (Negative) Ur Leukocyte Esterase Small (1+) H (Negative) Urine RBC 0-2 (0-2) /HPF Urine WBC 11-20 H (0-5) /HPF Ur Squamous Epith Cells 3-5 (0-2) /HPF Urine Bacteria 3+ (None Seen) Hyaline Casts 0-2 (0-2) /LPF Urine Test NEGATIVE (NEGATIVE) Salicylates < 5.0 L (15-30) mg/dL Acetaminophen < 17 (<30) mcg/mL Ethyl Alcohol < 10 mg/dL External Record Review External record reviewed: Inpatient record Social Determinants Patient?s care significantly limited by Social Determinants of Health including: Alcoholism and drug addiction in family and Problems related to primary support group Discharge Plan Discharge Clinical Impression: Grief reaction Depression Qualifiers: Depression Type: unspecified Qualified Code(s): F32.A - Depression, unspecified Patient Disposition: Still a Patient Prescriptions: No Action dextroamphetamine-amphetamine 20 mg capsule,extended release 24hr 1 cap PO DAILY@1400 pantoprazole 20 mg tablet,delayed release (DR/EC) 20 mg PO DAILY pregabalin 300 mg capsule 300 mg PO BID dextroamphetamine-amphetamine 30 mg capsule,extended release 24hr 1 cap PO DAILY@0800 diclofenac sodium 1 % gel 1 ea topical DAILY trazodone 50 mg tablet 50 mg PO BEDTIME fluoxetine [Prozac] 40 mg capsule 40 mg PO DAILY aripiprazole 5 mg tablet 5 mg PO DAILY clonazepam 0.5 mg tablet 0.5 mg PO BID PRN (Reason: Anxiety)
[2023-07-23 19:36] VITALS: BP 116/69; PULSE 58; RESP 16; TEMP 36.1; O2SAT 98; BMI 31.0
[2023-07-23 20:22] LABS: MANUAL DIFF FLAG NO
[2023-07-23 20:24] LABS: Basophils Percent Auto 0.4 % (0-2); Eosinophils Absolute Auto 0.3 X10*3/uL (0.0-0.4); Eosinophils Percent Auto 3.3 % (0-4); Hematocrit 35.8 % (37.0-47.0); Hemoglobin 11.3 g/dl (12.0-16.0); Imm Gran Abs Auto 0.03 X10*3/uL (0.00-0.03); Imm Gran Pct Auto 0.4 % (0.0-0.4); Lymphocytes Absolute Auto 2.1 X10*3/uL (1.2-4.9); Lymphocytes Percent Auto 27.3 % (20-40); Mean Corpuscular HGB Conc 31.6 g/dl (31.0-35.0); Mean Corpuscular Hemoglobin 27.7 pg (27.0-33.0); Mean Corpuscular Volume 87.7 fL (80.0-98.0); Mean Platelet Volume 9.4 fL (9.4-12.3); Monocytes Absolute Auto 0.6 X10*3/uL (0.1-1.2); Monocytes Percent Auto 7.6 % (2-11); Neutrophils Absolute Auto 4.6 x10*3/uL (2.0-8.3); Platelet Count 317 X10*3/uL (160-400); Red Blood Count 4.08 X10*6/uL (4.20-5.50); Red Cell Distribution Width 13.9 % (11.0-16.0); White Blood Count 7.5 X10*3/uL (4.8-10.8)
[2023-07-23 20:28] LABS: Appearance Urine Clear; Color Urine Yellow; Glucose Urine UA Negative (Negative); Leukocyte Esterase Urine Small (1+) (Negative); Nitrite Urine Negative (Negative); PH 5.5 (5.0-9.0); UMIC TRIGGER UACC YES; UPreg QC Valid YES; Urine Blood Negative (Negative); Urine Ketones Negative (Negative); Urine Pregnancy NEGATIVE (NEGATIVE); Urine Protein Negative (Neg-Trace)
[2023-07-23 20:41] LABS: Bacteria Urine 3+ (None Seen); Hyaline Casts Urine 0-2 /LPF (0-2); RBC Urine 0-2 /HPF (0-2); UACC Culture Trigger YES
[2023-07-23 20:42] LABS: Acetaminophen LAB < 17 mcg/mL (<30); Alanine Aminotransferase 10 U/L (0-31); Albumin Level 3.8 g/dL (3.5-5.0); Alkaline Phosphatase 91 U/L (39-117); Anion Gap 14 (12-20); Aspartate Amino Transferase 18 U/L (5-31); Bilirubin Total 0.3 mg/dL (0.0-1.0); Blood Urea Nitrogen 7 mg/dL (9-16); Calcium 8.7 mg/dL (8.4-10.2); Carbon Dioxide 25 mmol/L (22-29); Chloride 108 mmol/L (96-108); Creatinine Clr Calc Pharmacy 82.5; Estimated Glomerular Filt Rate > 60; Ethanol < 10 mg/dL; Glucose Random 89 mg/dL (60-115); Lipase 122 U/L (8-78); Potassium 4.1 mmol/L (3.3-5.1); Salicylate < 5.0 mg/dL (15-30); Sodium 143 mmol/L (135-145); Total Protein 7.5 g/dL (6.5-8.0)
[2023-07-23] MEDS: traZODone HCL 50 MG TABLET PO (21:49)
[2023-07-23] MEDS: Pregabalin 150 MG CAPSULE 300 MG PO (21:50)
[2023-07-23] MEDS: clonazePAM 0.5 MG TABLET PO (21:50)
[2023-07-23 22:12] LABS: Amphetamine Screen Urine Not Detected (Not Detect); Barbiturates, Urine Not Detected (Not Detect); Benzodiazepines Screen Urine Not Detected (Not Detect); Cannabinoid Screen Urine POSITIVE (Not Detect); Cocaine Screen Urine Not Detected (Not Detect); Fentanyl, urine Not Detected (Not Detect); Opiate Screen Urine Not Detected (Not Detect); Phencyclidine Screen Urine Not Detected (Not Detect)
[2023-07-24] MEDS: clonazePAM 0.5 MG TABLET PO ×3 (00:14→20:47)
--- NOTE | 2023-07-24 06:12 | PC.NURSE ---
Patient slept through the night, no distress observed/reported except emotional pain due to sad demise of her daughter a week ago, patient had few tearful moments, medication compliant, engaged well with care team clinician, disposition is section 12 inpatient bed search, labs completed/resulted, VSS, will continue to monitor.
[2023-07-24] MEDS: Omeprazole 20 MG CAPSULE.DR PO (08:25)
[2023-07-24] MEDS: ARIPiprazole 5 MG TABLET PO (08:25)
[2023-07-24] MEDS: Dextroamphetamine/Amphetamine XR 10 MG CAP.ER.24H 30 MG PO (08:25)
[2023-07-24] MEDS: FLUoxetine HCl 20 MG CAPSULE 40 MG PO (08:25)
[2023-07-24] MEDS: Pregabalin 150 MG CAPSULE 300 MG PO ×2 (08:25→20:47)
[2023-07-24 08:47] LABS: COVID-19 Test Negative (Negative); IDNOW Serial# 08D9AD1C
[2023-07-24] MEDS: TiZANidine HCL 4 MG TABLET PO (09:53)
[2023-07-24] MEDS: Trolamine Salicylate 10 % Cream 85 GM TUBE 1 APPL TOPICAL (09:53)
--- NOTE | 2023-07-24 10:34 | PC.NURSE ---
upon arrival to shift patient requesting medications soon after t/ws arrival cooperative and patient, appeared to be in little distress, stated my daughter last week , will continue to monitor for safety
[2023-07-24 13:41] VITALS: BP 113/64; PULSE 50; RESP 16; TEMP 36.1; O2SAT 100
[2023-07-24] MEDS: Dextroamphetamine/Amphetamine XR 10 MG CAP.ER.24H 20 MG PO (14:35)
[2023-07-24 17:00] VITALS: BP 120/70; PULSE 80; TEMP 37.1; O2SAT 98
--- NOTE | 2023-07-24 17:38 | PC.ADMIT ---
Deb is a 48-year-old female admitted from [facility] pod to M3 on a CV for treatment of MDD, PTSD, adjustment disorder with depressed mood. Tox screen positive for THC. Pt reports SI with plan to cut herself and increased depression after her daughter last week from organ failure related to alcoholism. Pt's grandmother also two years ago from COVID. Pt reports two prior suicide attempts, one attempt was by toxic ingestion of pills resulting in hospitalization and intubation. Upon admission assessment, pt is alert, oriented, pleasant and cooperative with linear thought process. Pt is anxious because her psychiatric provider reduced her Klonopin from TID to BID but that was prior to her daughter's and she feels like she needs it to be increased again. Pt is worried about being unable to function or cope. 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 Pt endorses frequent thoughts of dying but does not have a specific plan while on the unit. Pt denies HI/AH/VH but will reach out to staff if thoughts occur.
--- NOTE | 2023-07-24 18:13 | PC.NURSE ---
Pt refused flu vaccine, pt stated she had already been immunized this season.
[2023-07-24] MEDS: Acetaminophen 325 MG TABLET 650 MG PO (18:39)
[2023-07-24] MEDS: hydrOXYzine HCL 25 MG TABLET PO (18:40)
[2023-07-24 19:55] VITALS: BP 113/63; PULSE 57; RESP 16; TEMP 36.4; O2SAT 100
[2023-07-25] MEDS: traZODone HCL 50 MG TABLET PO (01:47)
[2023-07-25] MEDS: Omeprazole 20 MG CAPSULE.DR PO (06:18)
[2023-07-25] MEDS: hydrOXYzine HCL 25 MG TABLET PO (06:18)
[2023-07-25] MEDS: TiZANidine HCL 4 MG TABLET PO ×2 (07:36→15:50)
[2023-07-25 08:40] VITALS: BP 92/54; PULSE 54; RESP 16; TEMP 36.2; O2SAT 96
[2023-07-25] MEDS: FLUoxetine HCl 20 MG CAPSULE 40 MG PO (08:44)
[2023-07-25] MEDS: Pregabalin 150 MG CAPSULE 300 MG PO ×2 (08:45→20:33)
[2023-07-25] MEDS: ARIPiprazole 5 MG TABLET PO (08:45)
[2023-07-25] MEDS: Dextroamphetamine/Amphetamine XR 10 MG CAP.ER.24H 30 MG PO (08:46)
[2023-07-25 11:10] LABS: Alanine Aminotransferase 12 U/L (0-31); Albumin Level 3.8 g/dL (3.5-5.0); Alkaline Phosphatase 85 U/L (39-117); Anion Gap 14 (12-20); Aspartate Amino Transferase 16 U/L (5-31); Bilirubin Total 0.3 mg/dL (0.0-1.0); Blood Urea Nitrogen 12 mg/dL (9-16); Calcium 9.2 mg/dL (8.4-10.2); Carbon Dioxide 23 mmol/L (22-29); Chloride 106 mmol/L (96-108); Cholesterol 185 mg/dL (<200); Creatinine Clr Calc Pharmacy 84.4; Estimated Glomerular Filt Rate > 60; Glucose Fasting 128 mg/dL (60-99); HDL Cholesterol 49 mg/dL (>40); LDL Cholesterol Calculated 109 mg/dL (<100); Potassium 3.8 mmol/L (3.3-5.1); Sodium 139 mmol/L (135-145); Total Protein 7.3 g/dL (6.5-8.0); Triglycerides 137 mg/dL (<150)
[2023-07-25 11:15] LABS: Estimated Average Glucose 111 mg/dL; Hemoglobin A1c % 5.5 % (<6.0)
--- NOTE | 2023-07-25 11:17 | P.HPPS_ITS ---
HPI Date of Service: 07/25/23 Chief Complaint: SI Sources of Information: patient interviewed, chart reviewed and crisis/core team assessment reviewed HPI Subjective Notes: Conditional Voluntary Narrative: met with patient. Discussed with Nursing. 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 Overall patient lost her daughter age 29 on 07/19/2023. Daughter from complications of alcohol disorder in [place]. Patient was with her when she passed in the hospital. Reports that she is finding it hard to see a future or purpose in living and after her daughter passed took an overdose of Eliquis tablets that she had from prior PE treatment. Reports in recent a superficially cutting herself and punching her face and has bruises consistent with same. Reports feeling guilty, sad, overwhelmed and suicidal. Also open to help. Reports that the last time she felt this way was when her grandma 2 years ago and she had a significant overdose requiring intubation. Reports she feels much worse mentally this time compared to 2 years ago. Mood low, energy motivational, sleep broken, no psychosis. Endorses SI. No plans or intent on the unit and feels supported. No HI. Regarding medications was on Abilify 7 mg and this was over 2 months ago, Klonopin 0.5 mg 3 times per day which was lower 4 months ago, Adderall, Prozac. No substance issues. Abilify and Klonopin were lowered as patient was doing better. Patient is open to Abilify being increased again along with Klonopin on a short-term basis. Past Psychiatric History: Reports history of 5 suicide attempts and the last use 1 week ago with Eliquis after her daughter . Was significant was 2 years ago after her grandmother which was an overdose and required intubation. On Klonopin, Adderall, Prozac, Abilify. 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 Lives in [place] mostly alone. A year old son was with his father in [place]. Two adult children in [place] that will be coming to visit soon. No substance issues. Has a court date that may have passed for an eviction hearing and also a upcoming court date for child support payments but unsure when this is. Diagnostics Vital Signs (24Hr): Vital Signs - 24 hr 07/24/23 13:41 07/24/23 17:00 07/24/23 19:55 Temperature 97.0 F 98.7 F 97.6 F Pulse Rate 50 80 57 Respiratory Rate 16 16 Blood Pressure 113/64 120/70 113/63 Pulse Oximetry 100 98 100 Oxygen Delivery Method Room Air Room Air Room Air BMI result Body Mass Index 31.0 Labs 07/23/23 20:17 07/25/23 10:09 Labs: Laboratory Results - last 48 hr 07/23/23 07/23/23 07/24/23 20:08 20:17 08:08 WBC 7.5 RBC 4.08 L Hgb 11.3 L Hct 35.8 L MCV 87.7 MCH 27.7 MCHC 31.6 RDW 13.9 Plt Count 317 MPV 9.4 Immature Gran % (Auto) 0.4 Neut % (Auto) 61.0 Lymph % (Auto) 27.3 [place] % (Auto) 7.6 Eos % (Auto) 3.3 Baso % (Auto) 0.4 Lymph # (Auto) 2.1 [place] # (Auto) 0.6 Eos # (Auto) 0.3 Baso # (Auto) 0.0 Abs Immat Gran (auto) 0.03 Absolute Neuts (auto) 4.6 Absolute Nucleated RBC 0.000 Nucleated RBC % (auto) 0.0 Sodium 143 Potassium 4.1 Chloride 108 Carbon Dioxide 25 Anion Gap 14 BUN 7 L Creatinine 0.85 Estim Creat Clear Calc 82.5 Estimated GFR > 60 Random Glucose 89 Fasting Glucose Estimat Average Glucose Hemoglobin A1c % Calcium 8.7 Total Bilirubin 0.3 AST 18 ALT 10 Alkaline Phosphatase 91 Total Protein 7.5 Albumin 3.8 Triglycerides Cholesterol LDL Cholesterol, Calc HDL Cholesterol Lipase 122 H Urine Color Yellow Urine Appearance Clear Urine pH 5.5 Ur Specific [place] 1.010 Urine Protein Negative Urine Glucose (UA) Negative Urine Ketones Negative Urine Blood Negative Urine Nitrite Negative Ur Leukocyte Esterase Small (1+) H Urine RBC 0-2 Urine WBC 11-20 H Ur Squamous Epith Cells 3-5 Urine Bacteria 3+ Hyaline Casts 0-2 Urine Test NEGATIVE Salicylates < 5.0 L Urine Opiates Screen Not Detected Urine Fentanyl Screen Not Detected Acetaminophen < 17 Ur Barbiturates Screen Not Detected Ur Phencyclidine Scrn Not Detected Ur Amphetamines Screen Not Detected U Benzodiazepines Scrn Not Detected Urine Cocaine Screen Not Detected U Marijuana (THC) Screen POSITIVE H Ethyl Alcohol < 10 COVID-19 (VANDANA) Negative COVID-19 Merfac See Note 07/25/23 10:09 WBC RBC Hgb Hct MCV MCH MCHC RDW Plt Count MPV Immature Gran % (Auto) Neut % (Auto) Lymph % (Auto) [place] % (Auto) Eos % (Auto) Baso % (Auto) Lymph # (Auto) [place] # (Auto) Eos # (Auto) Baso # (Auto) Abs Immat Gran (auto) Absolute Neuts (auto) Absolute Nucleated RBC Nucleated RBC % (auto) Sodium 139 Potassium 3.8 Chloride 106 Carbon Dioxide 23 Anion Gap 14 BUN 12 Creatinine 0.83 Estim Creat Clear Calc 84.4 Estimated GFR > 60 Random Glucose Fasting Glucose 128 H Estimat Average Glucose 111 Hemoglobin A1c % 5.5 Calcium 9.2 Total Bilirubin 0.3 AST 16 ALT 12 Alkaline Phosphatase 85 Total Protein 7.3 Albumin 3.8 Triglycerides 137 Cholesterol 185 LDL Cholesterol, Calc 109 H HDL Cholesterol 49 Lipase Urine Color Urine Appearance Urine pH Ur Specific [place] Urine Protein Urine Glucose (UA) Urine Ketones Urine Blood Urine Nitrite Ur Leukocyte Esterase Urine RBC Urine WBC Ur Squamous Epith Cells Urine Bacteria Hyaline Casts Urine Test Salicylates Urine Opiates Screen Urine Fentanyl Screen Acetaminophen Ur Barbiturates Screen Ur Phencyclidine Scrn Ur Amphetamines Screen U Benzodiazepines Scrn Urine Cocaine Screen U Marijuana (THC) Screen Ethyl Alcohol COVID-19 (VANDANA) COVID-19 Merfac Meds/Allergies Meds Home Medications Medication Instructions Recorded Confirmed Type fluoxetine 40 mg capsule (Prozac) 40 mg PO DAILY 05/14/22 07/23/23 History diclofenac sodium 1 % topical gel 1 ea topical DAILY 09/16/22 07/23/23 History trazodone 50 mg tablet 50 mg PO BEDTIME 09/16/22 07/23/23 History aripiprazole 5 mg tablet 5 mg PO DAILY 03/17/23 07/23/23 History clonazepam 0.5 mg tablet 0.5 mg PO BID PRN Anxiety 03/17/23 07/23/23 History dextroamphetamine-amphetamine ER 1 cap PO DAILY@1400 07/23/23 07/23/23 History 20 mg 24hr capsule,extend release dextroamphetamine-amphetamine ER 1 cap PO DAILY@0800 07/23/23 07/23/23 History 30 mg 24hr capsule,extend release pantoprazole 20 mg tablet,delayed 20 mg PO DAILY 07/23/23 07/23/23 History release pregabalin 300 mg capsule 300 mg PO BID 07/23/23 07/23/23 History Allergies Allergies Allergy/AdvReac Type Severity Reaction Status Date / Time erythromycin base Allergy Severe PANCREATITI Verified 07/23/23 09:28 [ERYTHROMYCIN BASE] S Penicillins [PCN] Allergy Severe HIVES Verified 07/23/23 09:28 Mental Status Exam Mental Status Exam Narrative: Pleasant. Engaged. Fairly presented. Depressed. Suicidal. No plans or intent currently. wants help. No HI. No agitation. No psychosis. Insight and judgment fair Assessment & Plan Assessment & Plan (1) Severe major depression: Status: Acute Code(s): F32.2 - Major depressive disorder, single episode, severe without psychotic features Plan Presents with major depressive episode in the context of a significant loss. Also additional stressors (court x 2). Regarding medications was on Abilify 7 mg and this was over 2 months ago, Klonopin 0.5 mg 3 times per day which was lower 4 months ago, Adderall, Prozac. No substance issues. Abilify and Klonopin were lowered as patient was doing better. Patient is open to Abilify being increased again along with Klonopin on a short-term basis. Patient educated on: diagnosis and medication risk/benefits Informed Consent: understands Reason for continued inpatient stay Substantial Risk for: harm to self Statement Statement: I have reviewed the history and physical and performed a pertinent examination on my patient. No changes have occurred unless specified. If the History and Physical was not performed prior to admission, the Hospitalist's service will be consulted for completing the admission physical. Time Spent With Patient Time: Total time managing care of this patient today ____ minutes.
[2023-07-25 11:27] LABS: Free T4 (Free Thyroxine) 0.76 ng/dL (0.71-1.85); Thyroid Stimulating Hormone 1.43 uIU/mL (0.32-4.0)
[2023-07-25 11:35] LABS: Folate 3.9 ng/mL (> or = 4.0); Vitamin B12 274 pg/mL (200-900)
[2023-07-25] MEDS: clonazePAM 0.5 MG TABLET PO ×2 (11:45→20:33)
[2023-07-25] MEDS: Dextroamphetamine/Amphetamine XR 10 MG CAP.ER.24H 20 MG PO (14:21)
[2023-07-25 20:25] VITALS: BP 99/59; PULSE 77; RESP 16; TEMP 36.4; O2SAT 96
[2023-07-26] MEDS: traZODone HCL 50 MG TABLET PO ×2 (01:45→20:38)
[2023-07-26] MEDS: hydrOXYzine HCL 25 MG TABLET PO ×2 (01:45→16:18)
[2023-07-26] MEDS: Acetaminophen 325 MG TABLET 650 MG PO (02:39)
[2023-07-26 08:35] VITALS: BP 114/73; PULSE 79; RESP 16; TEMP 36.7; O2SAT 98
[2023-07-26] MEDS: Dextroamphetamine/Amphetamine XR 10 MG CAP.ER.24H 30 MG PO (08:35)
[2023-07-26] MEDS: Omeprazole 20 MG CAPSULE.DR PO (08:36)
[2023-07-26] MEDS: Pregabalin 150 MG CAPSULE 300 MG PO ×2 (08:37→20:35)
[2023-07-26] MEDS: FLUoxetine HCl 20 MG CAPSULE 40 MG PO (08:37)
[2023-07-26] MEDS: ARIPiprazole 10 MG TABLET PO (08:37)
[2023-07-26] MEDS: TiZANidine HCL 4 MG TABLET PO ×2 (08:46→18:29)
[2023-07-26] MEDS: clonazePAM 0.5 MG TABLET PO ×2 (12:05→20:35)
[2023-07-26] MEDS: Dextroamphetamine/Amphetamine XR 10 MG CAP.ER.24H 20 MG PO (14:22)
--- NOTE | 2023-07-26 14:32 | P.PNPSI_ITS ---
Subjective Subjective Date of Service: 07/26/23 Reason For Visit: SI Subjective Notes: Conditional Voluntary Interim History: met with patient. Discussed with Nursing. Reports that today is much better than yesterday. More relaxed. Attending groups. Or work has been helpful. Trying to read and meditate. Hopeful she can be discharged by the end of the week as her daughter from [place] will be coming up. No suicidal thoughts today. Medication Compliance: Yes Side effects from medications: No Attending Groups: Yes Review of Systems Acute medical concerns: No Review of Systems Review of Systems Yes all other systems are reviewed and are negative Mental Status Exam Mental Status Exam Narrative: Pleasant. Engaged. Organized. Brighter affect and less depressed. No SI. No HI. No agitation or psychosis. Insight and judgment fair Diagnostics Vital Signs (24Hr): Vital Signs - 24 hr 07/25/23 20:25 07/26/23 08:35 Temperature 97.5 F 98.0 F Pulse Rate 77 79 Respiratory Rate 16 16 Blood Pressure 99/59 L 114/73 Pulse Oximetry 96 98 Oxygen Delivery Method Room Air Room Air BMI result Body Mass Index 31.0 Labs 07/23/23 20:17 07/25/23 10:09 Labs: Laboratory Results - last 48 hr 07/25/23 10:09 Sodium 139 Potassium 3.8 Chloride 106 Carbon Dioxide 23 Anion Gap 14 BUN 12 Creatinine 0.83 Estim Creat Clear Calc 84.4 Estimated GFR > 60 Fasting Glucose 128 H Estimat Average Glucose 111 Hemoglobin A1c % 5.5 Calcium 9.2 Total Bilirubin 0.3 AST 16 ALT 12 Alkaline Phosphatase 85 Total Protein 7.3 Albumin 3.8 Triglycerides 137 Cholesterol 185 LDL Cholesterol, Calc 109 H HDL Cholesterol 49 Vitamin B12 274 Folate 3.9 L TSH 1.43 Free T4 0.76 Medications Medications Current Medications Acetaminophen (Acetaminophen 325 Mg Tablet) 650 mg PO Q6H PRN PRN Reason: Headache/Pain Mild Scale (1-3) Last Admin: 07/26/23 02:39 Dose: 650 mg Al Hydroxide/Mg Hydroxide (Magnesium Hydrox/Alum Hydrox 30 Ml Oral.Susp) 30 ml PO Q6H PRN PRN Reason: Heartburn/Nausea Amphetamine/Dextroamphetamine (Dextroamphetamine/Amphetamine Xr 10 Mg Cap.Er.24h) 20 mg PO DAILY@1400 [facility] Last Admin: 07/26/23 14:22 Dose: 20 mg Amphetamine/Dextroamphetamine (Dextroamphetamine/Amphetamine Xr 10 Mg Cap.Er.24h) 30 mg PO DAILY@0800 [facility] Last Admin: 07/26/23 08:35 Dose: 30 mg Aripiprazole (Aripiprazole 10 Mg Tablet) 10 mg PO DAILY [facility] Last Admin: 07/26/23 08:37 Dose: 10 mg Clonazepam (Clonazepam 0.5 Mg Tablet) 0.5 mg PO TID PRN PRN Reason: Anxiety Last Admin: 07/26/23 12:05 Dose: 0.5 mg Fluoxetine HCl (Fluoxetine Hcl 20 Mg Capsule) 40 mg PO DAILY [facility] Last Admin: 07/26/23 08:37 Dose: 40 mg Hydroxyzine HCl (Hydroxyzine Hcl 25 Mg Tablet) 25 mg PO Q6H PRN PRN Reason: Anxiety Last Admin: 07/26/23 01:45 Dose: 25 mg Magnesium Hydroxide (Milk Of Magnesia 30 Ml Oral.Susp) 30 ml PO DAILY PRN PRN Reason: Constipation Nicotine Polacrilex (Nicotine Polacrilex 2 Mg Gum) 2 mg BUCCAL Q2H PRN PRN Reason: Nicotine Cravings Pt Own (Diclofenac (75mg)) 75 each PO BID PRN PRN Reason: moderate pain Last Admin: 07/25/23 22:21 Dose: 75 each Non-Formulary Medication ( Diclofenac 1% Gel) 1 each TOPICAL TID PRN PRN Reason: joint pain Last Admin: 07/26/23 02:47 Dose: 1 each Omeprazole (Omeprazole 20 Mg Capsule.Dr) 20 mg PO DAILY@0630 [facility] Last Admin: 07/26/23 08:36 Dose: 20 mg Pregabalin (Pregabalin 150 Mg Capsule) 300 mg PO BID [facility] Last Admin: 07/26/23 08:37 Dose: 300 mg Tizanidine HCl (Tizanidine Hcl 4 Mg Tablet) 4 mg PO TID PRN PRN Reason: Muscle Spasm Last Admin: 07/26/23 08:46 Dose: 4 mg Trazodone HCl (Trazodone Hcl 50 Mg Tablet) 50 mg PO BEDTIME [facility] Last Admin: 07/26/23 02:05 Dose: Not Given Trazodone HCl (Trazodone Hcl 50 Mg Tablet) 50 mg PO BEDTIME MRX1 PRN PRN Reason: Insomnia Last Admin: 07/26/23 01:45 Dose: 50 mg Allergies Allergies Allergy/AdvReac Type Severity Reaction Status Date / Time erythromycin base Allergy Severe PANCREATITI Verified 07/23/23 09:28 [ERYTHROMYCIN BASE] S Penicillins [PCN] Allergy Severe HIVES Verified 07/23/23 09:28 Assessment & Plan Assessment & Plan (1) Severe major depression: Status: Acute Code(s): F32.2 - Major depressive disorder, single episode, severe without psychotic features Plan Presents with major depressive episode in the context of a significant loss. Also additional stressors (court x 2). Regarding medications was on Abilify 7 mg and this was over 2 months ago, Klonopin 0.5 mg 3 times per day which was lower 4 months ago, Adderall, Prozac. No substance issues. Abilify and Klonopin were lowered as patient was doing better. Patient is open to Abilify being increased again along with Klonopin on a short-term basis. 07/26: no med changes. Reason for continued inpatient stay Substantial Risk for: harm to self Time Spent With Patient Time: Total time managing care of this patient today ____ minutes.
[2023-07-26 18:20] VITALS: BP 136/87; PULSE 85; RESP 16; TEMP 36.2; O2SAT 97
[2023-07-27] MEDS: hydrOXYzine HCL 25 MG TABLET PO ×2 (01:51→22:01)
[2023-07-27] MEDS: traZODone HCL 50 MG TABLET PO ×2 (01:53→22:01)
[2023-07-27] MEDS: TiZANidine HCL 4 MG TABLET PO ×3 (03:34→22:49)
[2023-07-27] MEDS: Omeprazole 20 MG CAPSULE.DR PO (08:24)
[2023-07-27] MEDS: ARIPiprazole 10 MG TABLET PO (08:24)
[2023-07-27] MEDS: FLUoxetine HCl 20 MG CAPSULE 40 MG PO (08:25)
[2023-07-27] MEDS: Pregabalin 150 MG CAPSULE 300 MG PO ×2 (08:25→22:01)
[2023-07-27] MEDS: Dextroamphetamine/Amphetamine XR 10 MG CAP.ER.24H 30 MG PO (08:26)
[2023-07-27 09:10] VITALS: BP 110/69; PULSE 84; RESP 16; TEMP 36.5; O2SAT 99
[2023-07-27] MEDS: clonazePAM 0.5 MG TABLET PO (14:25)
[2023-07-27] MEDS: Dextroamphetamine/Amphetamine XR 10 MG CAP.ER.24H 20 MG PO (14:26)
--- NOTE | 2023-07-27 15:31 | HO.PSYCHPN ---
Subjective Subjective Date of Service: 07/27/23 Reason For Visit: SI Interim History: feeling sad but safe. wants to discharge or thursday so she can attend wake for her daughter. asks to increase SSRI, which is accommodated. per staff, dep 10, anx 6. no SIBI. poor sleep, but normal for her. no SI O/N. trazodone, atarax PRN. slept about 5 hours total overnight. Mental Status Exam Mental Status Exam Narrative: Pleasant. Engaged. Organized. Brighter affect and less depressed. No SI. No HI. No agitation or psychosis. Insight and judgment fair Diagnostics Vital Signs (24Hr): Vital Signs - 24 hr 07/26/23 18:20 07/27/23 09:10 Temperature 97.1 F 97.7 F Pulse Rate 85 84 Respiratory Rate 16 16 Blood Pressure 136/87 110/69 Pulse Oximetry 97 99 Oxygen Delivery Method Room Air Room Air BMI result Body Mass Index 31.0 Labs 07/23/23 20:17 07/25/23 10:09 Medications Medications Current Medications Acetaminophen (Acetaminophen 325 Mg Tablet) 650 mg PO Q6H PRN PRN Reason: Headache/Pain Mild Scale (1-3) Last Admin: 07/26/23 02:39 Dose: 650 mg Al Hydroxide/Mg Hydroxide (Magnesium Hydrox/Alum Hydrox 30 Ml Oral.Susp) 30 ml PO Q6H PRN PRN Reason: Heartburn/Nausea Amphetamine/Dextroamphetamine (Dextroamphetamine/Amphetamine Xr 10 Mg Cap.Er.24h) 20 mg PO DAILY@1400 [facility] Last Admin: 07/27/23 14:26 Dose: 20 mg Amphetamine/Dextroamphetamine (Dextroamphetamine/Amphetamine Xr 10 Mg Cap.Er.24h) 30 mg PO DAILY@0800 [facility] Last Admin: 07/27/23 08:26 Dose: 30 mg Aripiprazole (Aripiprazole 10 Mg Tablet) 10 mg PO DAILY [facility] Last Admin: 07/27/23 08:24 Dose: 10 mg Clonazepam (Clonazepam 0.5 Mg Tablet) 0.5 mg PO TID PRN PRN Reason: Anxiety Last Admin: 07/27/23 14:25 Dose: 0.5 mg Fluoxetine HCl (Fluoxetine Hcl 20 Mg Capsule) 60 mg PO DAILY [facility] Hydroxyzine HCl (Hydroxyzine Hcl 25 Mg Tablet) 25 mg PO Q6H PRN PRN Reason: Anxiety Last Admin: 07/27/23 01:51 Dose: 25 mg Magnesium Hydroxide (Milk Of Magnesia 30 Ml Oral.Susp) 30 ml PO DAILY PRN PRN Reason: Constipation Nicotine Polacrilex (Nicotine Polacrilex 2 Mg Gum) 2 mg BUCCAL Q2H PRN PRN Reason: Nicotine Cravings Pt Own (Diclofenac (75mg)) 75 each PO BID PRN PRN Reason: moderate pain Last Admin: 07/26/23 16:18 Dose: 75 each Non-Formulary Medication ( Diclofenac 1% Gel) 1 each TOPICAL TID PRN PRN Reason: joint pain Last Admin: 07/26/23 02:47 Dose: 1 each Omeprazole (Omeprazole 20 Mg Capsule.Dr) 20 mg PO DAILY@0630 [facility] Last Admin: 07/27/23 08:24 Dose: 20 mg Pregabalin (Pregabalin 150 Mg Capsule) 300 mg PO BID [facility] Last Admin: 07/27/23 08:25 Dose: 300 mg Tizanidine HCl (Tizanidine Hcl 4 Mg Tablet) 4 mg PO TID PRN PRN Reason: Muscle Spasm Last Admin: 07/27/23 11:33 Dose: 4 mg Trazodone HCl (Trazodone Hcl 50 Mg Tablet) 50 mg PO BEDTIME [facility] Last Admin: 07/26/23 20:38 Dose: 50 mg Trazodone HCl (Trazodone Hcl 50 Mg Tablet) 50 mg PO BEDTIME MRX1 PRN PRN Reason: Insomnia Last Admin: 07/27/23 01:53 Dose: 50 mg Allergies Allergies Allergy/AdvReac Type Severity Reaction Status Date / Time erythromycin base Allergy Severe PANCREATITI Verified 07/23/23 09:28 [ERYTHROMYCIN BASE] S Penicillins [PCN] Allergy Severe HIVES Verified 07/23/23 09:28 Assessment & Plan Assessment & Plan (1) Severe major depression: Status: Acute Code(s): F32.2 - Major depressive disorder, single episode, severe without psychotic features Plan Presents with major depressive episode in the context of a significant loss. Also additional stressors (court x 2). Regarding medications was on Abilify 7 mg and this was over 2 months ago, Klonopin 0.5 mg 3 times per day which was lower 4 months ago, Adderall, Prozac. No substance issues. Abilify and Klonopin were lowered as patient was doing better. Patient is open to Abilify being increased again along with Klonopin on a short-term basis. 07/26: no med changes. 07/27: increase rpozac to 60. otherwise continue current mgmt. sad but safe. planning to discharge or thursday in time for daughter's wake thursday. Reason for continued inpatient stay Substantial Risk for: harm to self, inability to function and rapid decompensation Time Spent With Patient Time: Total time managing care of this patient today __25__ minutes.
[2023-07-27 19:45] VITALS: BP 112/60; PULSE 73; RESP 18; TEMP 36.5; O2SAT 98
[2023-07-28] MEDS: clonazePAM 0.5 MG TABLET PO (04:25)
[2023-07-28 06:00] VITALS: BP 103/66; PULSE 77; RESP 16; TEMP 36.3; O2SAT 98
[2023-07-28] MEDS: ARIPiprazole 10 MG TABLET PO (09:32)
[2023-07-28] MEDS: Omeprazole 20 MG CAPSULE.DR PO (09:32)
[2023-07-28] MEDS: Pregabalin 150 MG CAPSULE 300 MG PO ×2 (09:32→19:58)
[2023-07-28] MEDS: FLUoxetine HCl 20 MG CAPSULE 60 MG PO (09:33)
[2023-07-28] MEDS: Dextroamphetamine/Amphetamine XR 10 MG CAP.ER.24H 30 MG PO (09:34)
[2023-07-28] MEDS: TiZANidine HCL 4 MG TABLET PO ×2 (12:35→19:59)
[2023-07-28] MEDS: hydrOXYzine HCL 25 MG TABLET PO ×2 (12:35→20:49)
[2023-07-28] MEDS: Dextroamphetamine/Amphetamine XR 10 MG CAP.ER.24H 20 MG PO (13:21)
--- NOTE | 2023-07-28 15:34 | HO.PSYCHPN ---
Subjective Subjective Date of Service: 07/28/23 Reason For Visit: SI Interim History: calm, cooperative, pleasant. 3-day up but says she's will to stay until thursday. denies side effects from medications regimen. per staff, no SI/HI. attending groups. social, cooperative. med-compliant. slept about 5 hours overnight. Mental Status Exam Mental Status Exam Narrative: Pleasant. Engaged. Organized. Brighter affect and less depressed. No SI. No HI. No agitation or psychosis. Insight and judgment fair Diagnostics Vital Signs (24Hr): Vital Signs - 24 hr 07/27/23 19:45 07/28/23 06:00 Temperature 97.7 F 97.4 F Pulse Rate 73 77 Respiratory Rate 18 16 Blood Pressure 112/60 103/66 Pulse Oximetry 98 98 Oxygen Delivery Method Room Air Room Air BMI result Body Mass Index 31.0 Labs 07/23/23 20:17 07/25/23 10:09 Medications Medications Current Medications Acetaminophen (Acetaminophen 325 Mg Tablet) 650 mg PO Q6H PRN PRN Reason: Headache/Pain Mild Scale (1-3) Last Admin: 07/26/23 02:39 Dose: 650 mg Al Hydroxide/Mg Hydroxide (Magnesium Hydrox/Alum Hydrox 30 Ml Oral.Susp) 30 ml PO Q6H PRN PRN Reason: Heartburn/Nausea Amphetamine/Dextroamphetamine (Dextroamphetamine/Amphetamine Xr 10 Mg Cap.Er.24h) 20 mg PO DAILY@1400 [facility] Last Admin: 07/28/23 13:21 Dose: 20 mg Amphetamine/Dextroamphetamine (Dextroamphetamine/Amphetamine Xr 10 Mg Cap.Er.24h) 30 mg PO DAILY@0800 [facility] Last Admin: 07/28/23 09:34 Dose: 30 mg Aripiprazole (Aripiprazole 10 Mg Tablet) 10 mg PO DAILY [facility] Last Admin: 07/28/23 09:32 Dose: 10 mg Clonazepam (Clonazepam 0.5 Mg Tablet) 0.5 mg PO TID PRN PRN Reason: Anxiety Last Admin: 07/28/23 04:25 Dose: 0.5 mg Fluoxetine HCl (Fluoxetine Hcl 20 Mg Capsule) 60 mg PO DAILY [facility] Last Admin: 07/28/23 09:33 Dose: 60 mg Hydroxyzine HCl (Hydroxyzine Hcl 25 Mg Tablet) 25 mg PO Q6H PRN PRN Reason: Anxiety Last Admin: 07/28/23 12:35 Dose: 25 mg Magnesium Hydroxide (Milk Of Magnesia 30 Ml Oral.Susp) 30 ml PO DAILY PRN PRN Reason: Constipation Nicotine Polacrilex (Nicotine Polacrilex 2 Mg Gum) 2 mg BUCCAL Q2H PRN PRN Reason: Nicotine Cravings Pt Own (Diclofenac (75mg)) 75 each PO BID PRN PRN Reason: moderate pain Last Admin: 07/28/23 04:25 Dose: 75 each Non-Formulary Medication ( Diclofenac 1% Gel) 1 each TOPICAL TID PRN PRN Reason: joint pain Last Admin: 07/27/23 19:48 Dose: 1 each Omeprazole (Omeprazole 20 Mg Capsule.Dr) 20 mg PO DAILY@0630 [facility] Last Admin: 07/28/23 09:32 Dose: 20 mg Pregabalin (Pregabalin 150 Mg Capsule) 300 mg PO BID [facility] Last Admin: 07/28/23 09:32 Dose: 300 mg Tizanidine HCl (Tizanidine Hcl 4 Mg Tablet) 4 mg PO TID PRN PRN Reason: Muscle Spasm Last Admin: 07/28/23 12:35 Dose: 4 mg Trazodone HCl (Trazodone Hcl 50 Mg Tablet) 50 mg PO BEDTIME [facility] Last Admin: 07/27/23 22:01 Dose: 50 mg Trazodone HCl (Trazodone Hcl 50 Mg Tablet) 50 mg PO BEDTIME MRX1 PRN PRN Reason: Insomnia Last Admin: 07/27/23 01:53 Dose: 50 mg Allergies Allergies Allergy/AdvReac Type Severity Reaction Status Date / Time erythromycin base Allergy Severe PANCREATITI Verified 07/23/23 09:28 [ERYTHROMYCIN BASE] S Penicillins [PCN] Allergy Severe HIVES Verified 07/23/23 09:28 Assessment & Plan Assessment & Plan (1) Severe major depression: Status: Acute Code(s): F32.2 - Major depressive disorder, single episode, severe without psychotic features Plan Presents with major depressive episode in the context of a significant loss. Also additional stressors (court x 2). Regarding medications was on Abilify 7 mg and this was over 2 months ago, Klonopin 0.5 mg 3 times per day which was lower 4 months ago, Adderall, Prozac. No substance issues. Abilify and Klonopin were lowered as patient was doing better. Patient is open to Abilify being increased again along with Klonopin on a short-term basis. 07/26: no med changes. 07/27: increase rpozac to 60. otherwise continue current mgmt. sad but safe. planning to discharge or thursday in time for daughter's wake thursday. 07/28: agreeable to remain until thursday despite having three-day notice up . stable, improved. continue current mgmt. Reason for continued inpatient stay Substantial Risk for: inability to function and rapid decompensation Time Spent With Patient Time: Total time managing care of this patient today __25__ minutes.
[2023-07-28 18:00] VITALS: BP 111/71; PULSE 91; RESP 16; TEMP 36.4; O2SAT 97
[2023-07-28] MEDS: traZODone HCL 50 MG TABLET PO (20:00)
[2023-07-29] MEDS: traZODone HCL 50 MG TABLET PO ×3 (02:32→21:07)
[2023-07-29] MEDS: Acetaminophen 325 MG TABLET 650 MG PO ×2 (02:33→21:08)
[2023-07-29] MEDS: clonazePAM 0.5 MG TABLET PO ×2 (02:33→15:38)
[2023-07-29 08:30] VITALS: BP 102/65; PULSE 78; RESP 16; TEMP 36.4; O2SAT 98
[2023-07-29] MEDS: Omeprazole 20 MG CAPSULE.DR PO (08:54)
[2023-07-29] MEDS: TiZANidine HCL 4 MG TABLET PO ×2 (08:55→21:08)
[2023-07-29] MEDS: ARIPiprazole 10 MG TABLET PO (08:55)
[2023-07-29] MEDS: Pregabalin 150 MG CAPSULE 300 MG PO ×2 (08:55→21:07)
[2023-07-29] MEDS: Dextroamphetamine/Amphetamine XR 10 MG CAP.ER.24H 30 MG PO (08:56)
[2023-07-29] MEDS: FLUoxetine HCl 20 MG CAPSULE 60 MG PO (08:56)
[2023-07-29] MEDS: hydrOXYzine HCL 25 MG TABLET PO (13:00)
[2023-07-29] MEDS: Dextroamphetamine/Amphetamine XR 10 MG CAP.ER.24H 20 MG PO (14:41)
--- NOTE | 2023-07-29 15:30 | P.PNPSI_ITS ---
Subjective Subjective Date of Service: 07/29/23 Reason For Visit: SI Interim History: MNA in an agitated state. prazosin for nightmares and insomnia in PTSD discussed, pt agrees to trial. per staff, pt rescinded 3-day notice. attending groups, pleasant, cooperative, sad. spending much time on phone. had PRN at 0230 for sleep. Mental Status Exam Mental Status Exam Narrative: Pleasant. Engaged. Organized. constricted affect, depressed. No SI. No HI. No agitation or psychosis. Insight and judgment fair Diagnostics Vital Signs (24Hr): Vital Signs - 24 hr 07/28/23 18:00 07/29/23 08:30 Temperature 97.5 F 97.6 F Pulse Rate 91 78 Respiratory Rate 16 16 Blood Pressure 111/71 102/65 Pulse Oximetry 97 98 Oxygen Delivery Method Room Air Room Air BMI result Body Mass Index 31.0 Labs 07/23/23 20:17 07/25/23 10:09 Medications Medications Current Medications Acetaminophen (Acetaminophen 325 Mg Tablet) 650 mg PO Q6H PRN PRN Reason: Headache/Pain Mild Scale (1-3) Last Admin: 07/29/23 02:33 Dose: 650 mg Acyclovir (Acyclovir 800 Mg Tablet) 800 mg PO TID [facility] Stop: 07/31/23 09:01 Last Admin: 07/29/23 15:06 Dose: 800 mg Al Hydroxide/Mg Hydroxide (Magnesium Hydrox/Alum Hydrox 30 Ml Oral.Susp) 30 ml PO Q6H PRN PRN Reason: Heartburn/Nausea Amphetamine/Dextroamphetamine (Dextroamphetamine/Amphetamine Xr 10 Mg Cap.Er.24h) 20 mg PO DAILY@1400 [facility] Last Admin: 07/29/23 14:41 Dose: 20 mg Amphetamine/Dextroamphetamine (Dextroamphetamine/Amphetamine Xr 10 Mg Cap.Er.24h) 30 mg PO DAILY@0800 [facility] Last Admin: 07/29/23 08:56 Dose: 30 mg Aripiprazole (Aripiprazole 10 Mg Tablet) 10 mg PO DAILY [facility] Last Admin: 07/29/23 08:55 Dose: 10 mg Clonazepam (Clonazepam 0.5 Mg Tablet) 0.5 mg PO TID PRN PRN Reason: Anxiety Last Admin: 07/29/23 02:33 Dose: 0.5 mg Fluoxetine HCl (Fluoxetine Hcl 20 Mg Capsule) 60 mg PO DAILY [facility] Last Admin: 07/29/23 08:56 Dose: 60 mg Hydroxyzine HCl (Hydroxyzine Hcl 25 Mg Tablet) 25 mg PO Q6H PRN PRN Reason: Anxiety Last Admin: 07/29/23 13:00 Dose: 25 mg Magnesium Hydroxide (Milk Of Magnesia 30 Ml Oral.Susp) 30 ml PO DAILY PRN PRN Reason: Constipation Nicotine Polacrilex (Nicotine Polacrilex 2 Mg Gum) 2 mg BUCCAL Q2H PRN PRN Reason: Nicotine Cravings Pt Own (Diclofenac (75mg)) 75 each PO BID PRN PRN Reason: moderate pain Last Admin: 07/29/23 08:54 Dose: 75 each Non-Formulary Medication ( Diclofenac 1% Gel) 1 each TOPICAL TID PRN PRN Reason: joint pain Last Admin: 07/27/23 19:48 Dose: 1 each Omeprazole (Omeprazole 20 Mg Capsule.Dr) 20 mg PO DAILY@0630 [facility] Last Admin: 07/29/23 08:54 Dose: 20 mg Prazosin HCl (Prazosin Hcl 1 Mg Capsule) 1 mg PO BEDTIME [facility]; Protocol Pregabalin (Pregabalin 150 Mg Capsule) 300 mg PO BID [facility] Last Admin: 07/29/23 08:55 Dose: 300 mg Tizanidine HCl (Tizanidine Hcl 4 Mg Tablet) 4 mg PO TID PRN PRN Reason: Muscle Spasm Last Admin: 07/29/23 08:55 Dose: 4 mg Trazodone HCl (Trazodone Hcl 50 Mg Tablet) 50 mg PO BEDTIME [facility] Last Admin: 07/29/23 02:32 Dose: 50 mg Trazodone HCl (Trazodone Hcl 50 Mg Tablet) 50 mg PO BEDTIME MRX1 PRN PRN Reason: Insomnia Last Admin: 07/29/23 02:33 Dose: 50 mg Allergies Allergies Allergy/AdvReac Type Severity Reaction Status Date / Time erythromycin base Allergy Severe PANCREATITI Verified 07/23/23 09:28 [ERYTHROMYCIN BASE] S Penicillins [PCN] Allergy Severe HIVES Verified 07/23/23 09:28 Assessment & Plan Assessment & Plan (1) Severe major depression: Status: Acute Code(s): F32.2 - Major depressive disorder, single episode, severe without psychotic features Plan Presents with major depressive episode in the context of a significant loss. Also additional stressors (court x 2). Regarding medications was on Abilify 7 mg and this was over 2 months ago, Klonopin 0.5 mg 3 times per day which was lower 4 months ago, Adderall, Prozac. No substance issues. Abilify and Klonopin were lowered as patient was doing better. Patient is open to Abilify being increased again along with Klonopin on a short-term basis. 07/26: no med changes. 07/27: increase rpozac to 60. otherwise continue current mgmt. sad but safe. planning to discharge or thursday in time for daughter's wake thursday. 07/28: agreeable to remain until thursday despite having three-day notice up . stable, improved. continue current mgmt. 07/29: MNA, agitated. severe trauma Hx. agrees to trial of prazosin to start tonight. Reason for continued inpatient stay Substantial Risk for: harm to self, inability to function and rapid decompensation Time Spent With Patient Time: Total time managing care of this patient today __25__ minutes.
[2023-07-29 20:58] VITALS: BP 120/56; PULSE 88; RESP 18; TEMP 36.3; O2SAT 100
[2023-07-29] MEDS: Prazosin HCL 1 MG CAPSULE PO (21:07)
[2023-07-30] MEDS: traZODone HCL 50 MG TABLET PO ×3 (02:23→23:24)
[2023-07-30] MEDS: clonazePAM 0.5 MG TABLET PO ×3 (02:23→21:15)
[2023-07-30 07:00] VITALS: BMI 33.2
[2023-07-30 08:40] VITALS: BP 110/59; PULSE 89; RESP 16; TEMP 36.4; O2SAT 96
[2023-07-30] MEDS: Dextroamphetamine/Amphetamine XR 10 MG CAP.ER.24H 30 MG PO (08:41)
[2023-07-30] MEDS: FLUoxetine HCl 20 MG CAPSULE 60 MG PO (08:42)
[2023-07-30] MEDS: Pregabalin 150 MG CAPSULE 300 MG PO ×2 (08:42→21:14)
[2023-07-30] MEDS: ARIPiprazole 10 MG TABLET PO (08:43)
[2023-07-30] MEDS: Omeprazole 20 MG CAPSULE.DR PO (08:44)
[2023-07-30] MEDS: TiZANidine HCL 4 MG TABLET PO (09:02)
[2023-07-30] MEDS: hydrOXYzine HCL 25 MG TABLET PO ×2 (09:03→17:00)
--- NOTE | 2023-07-30 10:58 | P.DS_ITS ---
DS: Providers Provider Date of Service: 07/30/23 Date of admission: 07/24/23 14:59 Primary care physician: Betito Rico PA-C DS: Diagnosis Discharge Diagnosis (1) Severe major depression: Status: Acute DS: Medications Discharge Medications Home Medications: Home Medications Medication Instructions Recorded Confirmed diclofenac sodium 1 % topical gel 1 ea topical DAILY 09/16/22 07/23/23 trazodone 50 mg tablet 50 mg PO BEDTIME 09/16/22 07/23/23 dextroamphetamine-amphetamine ER 1 cap PO DAILY@1400 07/23/23 07/23/23 20 mg 24hr capsule,extend release dextroamphetamine-amphetamine ER 1 cap PO DAILY@0800 07/23/23 07/23/23 30 mg 24hr capsule,extend release pregabalin 300 mg capsule 300 mg PO BID 07/23/23 07/23/23 Previous Rx's Medication Instructions Recorded aripiprazole 10 mg tablet 10 mg PO DAILY 30 days #30 tabs 07/30/23 clonazepam 0.5 mg tablet 0.5 mg PO TID PRN Anxiety 30 days 07/30/23 #30 tabs fluoxetine 20 mg capsule 60 mg (3 x 20 mg) PO DAILY 30 days 07/30/23 #90 caps hydroxyzine HCl 25 mg tablet 25 mg PO TID PRN Anxiety 30 days 07/30/23 #90 tabs omeprazole 20 mg capsule,delayed 20 mg PO DAILY@0630 30 days #30 07/30/23 release caps prazosin 1 mg capsule 2 mg PO BEDTIME 30 days #60 caps 07/30/23 tizanidine 4 mg tablet 4 mg PO TID PRN Muscle Spasm #0 07/30/23 tabs trazodone 50 mg tablet 50 mg PO BEDTIME PRN Insomnia 30 07/30/23 days #30 tabs Mental Status Exam Mental Status Exam Narrative: Pleasant. Engaged. Organized. constricted affect, depressed. No SI. No HI. No agitation or psychosis. Insight and judgment fair Data Data Completed and Pending Completed studies during hospitalization [Text1]: 07/23/23 07/23/23 07/24/23 20:08 20:17 08:08 WBC 7.5 RBC 4.08 L Hgb 11.3 L Hct 35.8 L MCV 87.7 MCH 27.7 MCHC 31.6 RDW 13.9 Plt Count 317 MPV 9.4 Immature Gran % (Auto) 0.4 Neut % (Auto) 61.0 Lymph % (Auto) 27.3 Williamson % (Auto) 7.6 Eos % (Auto) 3.3 Baso % (Auto) 0.4 Lymph # (Auto) 2.1 Williamson # (Auto) 0.6 Eos # (Auto) 0.3 Baso # (Auto) 0.0 Abs Immat Gran (auto) 0.03 Absolute Neuts (auto) 4.6 Absolute Nucleated RBC 0.000 Nucleated RBC % (auto) 0.0 Sodium 143 Potassium 4.1 Chloride 108 Carbon Dioxide 25 Anion Gap 14 BUN 7 L Creatinine 0.85 Estim Creat Clear Calc 82.5 Estimated GFR > 60 Random Glucose 89 Fasting Glucose Estimat Average Glucose Hemoglobin A1c % Calcium 8.7 Total Bilirubin 0.3 AST 18 ALT 10 Alkaline Phosphatase 91 Total Protein 7.5 Albumin 3.8 Triglycerides Cholesterol LDL Cholesterol, Calc HDL Cholesterol Lipase 122 H Vitamin B12 Folate TSH Free T4 Urine Color Yellow Urine Appearance Clear Urine pH 5.[address] 1.010 Urine Protein Negative Urine Glucose (UA) Negative Urine Ketones Negative Urine Blood Negative Urine Nitrite Negative Ur Leukocyte Esterase Small (1+) H Urine RBC 0-2 Urine WBC 11-20 H Ur Squamous Epith Cells 3-5 Urine Bacteria 3+ Hyaline Casts 0-2 Urine Test NEGATIVE Salicylates < 5.0 L Urine Opiates Screen Not Detected Urine Fentanyl Screen Not Detected Acetaminophen < 17 Ur Barbiturates Screen Not Detected Ur Phencyclidine Scrn Not Detected Ur Amphetamines Screen Not Detected U Benzodiazepines Scrn Not Detected Urine Cocaine Screen Not Detected U Marijuana (THC) Screen POSITIVE H Ethyl Alcohol < 10 COVID-19 ([facility]) Negative COVID-19 Clin Com See Note 07/25/23 10:09 WBC RBC Hgb Hct MCV MCH MCHC RDW Plt Count MPV Immature Gran % (Auto) Neut % (Auto) Lymph % (Auto) Williamson % (Auto) Eos % (Auto) Baso % (Auto) Lymph # (Auto) Williamson # (Auto) Eos # (Auto) Baso # (Auto) Abs Immat Gran (auto) Absolute Neuts (auto) Absolute Nucleated RBC Nucleated RBC % (auto) Sodium 139 Potassium 3.8 Chloride 106 Carbon Dioxide 23 Anion Gap 14 BUN 12 Creatinine 0.83 Estim Creat Clear Calc 84.4 Estimated GFR > 60 Random Glucose Fasting Glucose 128 H Estimat Average Glucose 111 Hemoglobin A1c % 5.5 Calcium 9.2 Total Bilirubin 0.3 AST 16 ALT 12 Alkaline Phosphatase 85 Total Protein 7.3 Albumin 3.8 Triglycerides 137 Cholesterol 185 LDL Cholesterol, Calc 109 H HDL Cholesterol 49 Lipase Vitamin B12 274 Folate 3.9 L TSH 1.43 Free T4 0.76 Urine Color Urine Appearance Urine pH Ur Specific [address] Urine Protein Urine Glucose (UA) Urine Ketones Urine Blood Urine Nitrite Ur Leukocyte Esterase Urine RBC Urine WBC Ur Squamous Epith Cells Urine Bacteria Hyaline Casts Urine Test Salicylates Urine Opiates Screen Urine Fentanyl Screen Acetaminophen Ur Barbiturates Screen Ur Phencyclidine Scrn Ur Amphetamines Screen U Benzodiazepines Scrn Urine Cocaine Screen U Marijuana (THC) Screen Ethyl Alcohol COVID-19 ([facility]) COVID-19 Clin Com 07/23/23 21:19 Urine clean catch - Urine vargas top Urine Culture - Final DS: Summary Hospital Course Hospital Course: per 07/25 admission note: met with patient. Discussed with Nursing. 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 Overall patient lost her daughter age 29 on 07/19/2023. Daughter from complications of alcohol disorder in [place]. Patient was with her when she passed in the hospital. Reports that she is finding it hard to see a future or purpose in living and after her daughter passed took an overdose of Eliquis tablets that she had from prior PE treatment. Reports in recent a superficially cutting herself and punching her face and has bruises consistent with same. Reports feeling guilty, sad, overwhelmed and suicidal. Also open to help. Repo rts that the last time she felt this way was when her grandma 2 years ago and she had a significant overdose requiring intubation. Reports she feels much worse mentally this time compared to 2 years ago. Mood low, energy motivational, sleep broken, no psychosis. Endorses SI. No plans or intent on the unit and feels supported. No HI. Regarding medications was on Abilify 7 mg and this was over 2 months ago, Klonopin 0.5 mg 3 times per day which was lower 4 months ago, Adderall, Prozac. No substance issues. Abilify and Klonopin were lowered as patient was doing better. Patient is open to Abilify being increased again along with Klonopin on a short-term basis. Past Psychiatric History: Reports history of 5 suicide attempts and the last use 1 week ago with Zach after her daughter . Was significant was 2 years ago after her grandmother which was an overdose and required intubation. On Klonopin, Adderall, Prozac, Abilify. 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 Lives in [place] mostly alone. A year old son was with his father in [place]. Two adult children in [place] that will be coming to visit soon. No substance issues. Has a court date that may have passed for an eviction hearing and also a upcoming court date for child support payments but unsure when this is. Precis: Presents with major depressive episode in the context of a significant loss. Also additional stressors (court x 2). Regarding medications was on Abilify 7 mg and this was over 2 months ago, Klonopin 0.5 mg 3 times per day which was lower 4 months ago, Adderall, Prozac. No substance issues. Abilify and Klonopin were lowered as patient was doing better. Patient is open to Abilify being increased again along with Klonopin on a short-term basis. 07/26: no med changes. 07/27: increase rpozac to 60. otherwise continue current mgmt. sad but safe. planning to discharge or thursday in time for daughter's wake thursday. 07/28: agreeable to remain until thursday despite having three-day notice up . stable, improved. continue current mgmt. 07/29: MNA, agitated. severe trauma Hx. agrees to trial of prazosin to start tonight. 07/30: calm, cooperative. sad but safe. increase prazosin to 2 mg tonight. discharge tomorrow as per plan. 07/31: discharged as per plan. stable, no safety or medical concerns overnight. Time Spent with Patient Time attestation: Total time managing care of this patient today ____ minutes. Time spent: Greater than 30 minutes Discharge Plan Discharge Anticipated Discharge Date/Time: 07/31/23 11:00 Patient Disposition: Home, Self-Care Discharge Diagnosis: Bereavement Major Depressive Disorder, Recurrent, Severe Referrals: Dotty Gallardo (Psychiatry) [Other] - 08/07/23 11:20 am (TELEHEALTH APPOINTMENT) Mandy Mims (Therapy) [Other] - 08/05/23 5:30 pm (Telehealth appointment -Please reach out to your therapist in regards to this appointment taking place in person. ) Betito Rico PA-C [Primary Care Provider] - 08/10/23 1:00 pm (PCP appt confirmed for @ 1pm) Discharge Medications: New trazodone 50 mg Tablet 50 mg PO BEDTIME PRN (Reason: Insomnia) 30 Days Qty: 30 0RF tizanidine 4 mg Tablet 4 mg PO TID PRN (Reason: Muscle Spasm) Qty: 0 0RF prazosin 1 mg Capsule 2 mg PO BEDTIME 30 Days Qty: 60 0RF Protocol: Hold for SBP< HOLD for SBP < : 90 clonazepam 0.5 mg Tablet 0.5 mg PO TID PRN (Reason: Anxiety) 30 Days Qty: 30 0RF omeprazole 20 mg Capsule,Delayed Release(Dr/Ec) 20 mg PO DAILY@0630 30 Days Qty: 30 0RF hydroxyzine HCl 25 mg Tablet 25 mg PO TID PRN (Reason: Anxiety) 30 Days Qty: 90 0RF fluoxetine 20 mg Capsule 60 mg PO DAILY 30 Days Qty: 90 0RF aripiprazole 10 mg Tablet 10 mg PO DAILY 30 Days Qty: 30 0RF Continued dextroamphetamine-amphetamine 20 mg capsule,extended release 24hr 1 cap PO DAILY@1400 pregabalin 300 mg capsule 300 mg PO BID dextroamphetamine-amphetamine 30 mg capsule,extended release 24hr 1 cap PO DAILY@0800 diclofenac sodium 1 % gel 1 ea topical DAILY trazodone 50 mg tablet 50 mg PO BEDTIME Discontinued pantoprazole 20 mg tablet,delayed release (DR/EC) 20 mg PO DAILY fluoxetine [Prozac] 40 mg capsule 40 mg PO DAILY aripiprazole 5 mg tablet 5 mg PO DAILY clonazepam 0.5 mg tablet 0.5 mg PO BID PRN (Reason: Anxiety) Discharge Orders: Discharge Order (Routine); Ordered 07/31/23 Ordered By: Mikey Aguilera Diet: Advance to usual diet Activity on Discharge: As tolerated Stand Alone Forms: Patient Portal Discharge page, Community Support Care Plan Goals: remain safe and stable in the outpatient treatment setting Health Concerns: none Plan of Treatment: take medications as prescribed, attend appointments as scheduled Assessment: not at imminent risk of harm to self or others due to hopefulness, sense of strong psychosocial supports. at elevated risk generally due to history of suicide attempts and recent loss of her daughter, however. Discharge Date/Time: 07/31/23 10:58
[2023-07-30] MEDS: Dextroamphetamine/Amphetamine XR 10 MG CAP.ER.24H 20 MG PO (14:33)
[2023-07-30 21:10] VITALS: BP 121/71; PULSE 95; RESP 18; O2SAT 95
[2023-07-30] MEDS: Prazosin HCL 1 MG CAPSULE 2 MG PO (21:15)
[2023-07-31] MEDS: hydrOXYzine HCL 25 MG TABLET PO (01:10)
[2023-07-31] MEDS: TiZANidine HCL 4 MG TABLET PO (01:11)
[2023-07-31 09:00] VITALS: BP 93/52; PULSE 92; RESP 16; TEMP 36.6; O2SAT 97
[2023-07-31] MEDS: Omeprazole 20 MG CAPSULE.DR PO (09:02)
[2023-07-31] MEDS: Dextroamphetamine/Amphetamine XR 10 MG CAP.ER.24H 30 MG PO (09:02)
[2023-07-31] MEDS: ARIPiprazole 10 MG TABLET PO (09:02)
[2023-07-31] MEDS: Pregabalin 150 MG CAPSULE 300 MG PO (09:03)
[2023-07-31] MEDS: FLUoxetine HCl 20 MG CAPSULE 60 MG PO (09:04)
== END 2023-07-31 10:58 | disposition home or self-care (01) | DRG 751 ==
LOC: HO.ED 20:22 → HO.PADLT16 07-24 16:30
PROVIDERS: Physician Assistant; Student in an Organized Health Care Education/Training Program; Admitting Provider Psychiatry & Neurology Psychiatry; Emergency Provider Emergency Medicine; PCP Physician Assistant; Visit Provider Psychiatry & Neurology Psychiatry
DX: F33.2 Major depressive disorder, recurrent severe without psychotic features (principal); R45.851 Suicidal ideations; Q79.60 Ehlers-Danlos syndrome, unspecified; F43.10 Post-traumatic stress disorder, unspecified; M79.7 Fibromyalgia; Z20.822 Contact with and (suspected) exposure to COVID-19; Z91.51 Personal history of suicidal behavior; Z91.52 Personal history of nonsuicidal self-harm; Z63.4 Disappearance and death of family member
CPT/HCPCS: 36415; 80053; 80061; 80143; 80179; 80307; 81001; 81025; 82607; 82746; 83036; 83690; 84439; 84443; 85025; 87086; 87635; 93005; 99285; S9485

== ENCOUNTER → 2023-07-24 14:59 | Outpatient (BNV) | payer OTHER, SELFPAY | PROVIDERS: Admitting Provider Psychiatry & Neurology Psychiatry; Emergency Provider Emergency Medicine; PCP Physician Assistant; Visit Provider Psychiatry & Neurology Psychiatry | DX: F32.2 Major depressive disorder, single episode, severe without psychotic features (principal) | CPT/HCPCS: 90792; 99231; 99232; 99239 ==

== ENCOUNTER 2023-08-10 12:52 | Outpatient (AMB) | payer OTHER, SELFPAY ==
[2023-08-10 12:53] VITALS: BP 110/60; PULSE 69; O2SAT 100; BMI 34.1
--- NOTE | 2023-08-10 12:53 | A.OFFPC_ITS ---
Vital Signs 08/10/23 12:53 Height 5 ft 3 in Weight 192 lb 8 oz BMI 34.1 BP 110/60 Blood Pressure Location Lt brachial Position Sitting Pulse 69 Pulse Source Pulse Oximeter Pulse Oximetry (%) 100 Oxygen Delivery Method Room Air Intake Visit Reasons: HDF Intake Note: Patient is here for hospital discharge follow up. Patient was discharged from [facility] on 07/31/23. Generator Repairer Required: No Assembler Rubber Footwear: Not Required per policy Accompanied by: Self / Same As Patient Allergies erythromycin base [ERYTHROMYCIN BASE] Allergy (Severe, Verified 08/10/23 12:59) PANCREATITIS Penicillins [PCN] Allergy (Severe, Verified 08/10/23 12:59) HIVES Medication List - Last Reconciled 08/10/23 by Betito Rico PA-C aripiprazole 10 mg PO DAILY 30 days clonazepam 0.5 mg PO TID PRN 30 days dextroamphetamine-amphetamine 20 mg ER 1 cap PO DAILY@1400 dextroamphetamine-amphetamine 30 mg ER 1 cap PO DAILY@0800 diclofenac sodium 1% 1 ea topical DAILY fluoxetine 60 mg (3 x 20 mg) PO DAILY 30 days hydroxyzine HCl 25 mg PO TID PRN 30 days omeprazole 20 mg PO DAILY@0630 30 days prazosin 3 mg See Protocol PO BEDTIME pregabalin 300 mg PO BID tizanidine 4 mg PO TID PRN trazodone 50 mg PO BEDTIME PRN 30 days trazodone 50 mg PO BEDTIME Tobacco use date assessed: 08/10/23 Dental Screening Dental Screen Date: 08/10/23 Did you have a dental visit in the last 12 months?: Yes Did you have a dental problem in the last 6 months where you did not have access to dental care?: No Was dental information given to patient?: Patient has dentist HPI HDF HPI Details Patient is a 48-year-old female here today for hospital discharge follow-up . Patient has a past medical history significant for EDS, fibromyalgia, ADHD, mood disorder. Recently admitted to the hospital for his acute suicidal ideations prompted by the passing of her daughter whom was living in [place]. Patient was in mid for a few days in the psychiatric unit. Med adjustments were made to her existing medications and prazosin 3 mg was added for night time use. She reports the prazosin has been helpful on reducing her night terrors and symptoms at night. .. Obesity/ impaired glucose metabolism: Have noted some weight gain and in impaired fasting blood sugar on most recent labs. She is willing to try Ozempic for glycemic control and added benefit of weight loss. [facility] Medical History (Updated 08/10/23 @ 13:26 by Betito Rico PA-C) Osteoarthritis Depression GERD (gastroesophageal reflux disease) Atypical chest pain GEORGES (obstructive sleep apnea) On anticoagulant therapy Menorrhagia Pulmonary embolism Syncope and collapse Subchondral sclerosis EDS (Juan-Danlos syndrome) Surgical History Hx of colonoscopy Hx of hand surgery History of endometrial ablation H/O bilateral breast reduction surgery Hx of section History of back surgery H/O knee surgery H/O shoulder surgery (~02/2019) Family History Paternal Aunt Breast cancer Father Diabetes High cholesterol HTN (hypertension) Maternal Uncle Stroke Maternal Grandfather Emphysema lung Lung cancer Maternal Grandmother Asthma Son Asthma Social History Household Members: None Housing: House Do you presently have visiting nurse or other home services: Yes (home health aid for housekeeping) Alcohol intake: never Patient Tobacco Use Status: Never used Tobacco e-Cigarette/Vaping Use: Never Used Second Hand Smoke Exposure: No Substance Use Type: Marijuana service: No Current occupational status: employed 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 Jsoeluis Chew, Tameka Lane, Jose J Josue and colleagues, with an educational ligia from [employer]. Review of Systems Const Denies headache(s) Eyes Denies loss of vision ENT Denies vertigo, Denies dizziness, Denies headache(s) and Denies sore throat Card Denies chest pain, Denies leg edema and Denies lightheadedness Resp Denies cough, Denies hemoptysis and Denies wheezing GI Denies abdominal pain, Denies melena, Denies constipation, Denies diarrhea and Denies vomiting Denies urinary frequency, Denies dysuria and Denies urinary urgency Musc Denies arthralgias, Denies joint swelling, Denies numbness and Denies tingling Neuro Denies Abnormal speech present, Denies behavioral changes, Denies vertigo, Denies dizziness, Denies headache(s), Denies loss of vision, Denies memory loss, Denies numbness and Denies tingling Psych Denies anxiety, Denies behavioral changes, Reports depression, Reports hopelessness, Denies memory loss and Denies panic attacks Michael/Lymph Denies easy bleeding and Denies easy bruising Aller/Immun Denies wheezing Physical exam (Primary Care) Vital Signs: Last Vital Signs Pulse 69 08/10/23 12:53 BP 110/60 08/10/23 12:53 Pulse Ox 100 08/10/23 12:53 Oxygen Delivery Method Room Air 08/10/23 12:53 BMI result Body Mass Index 34.1 Tobacco/Smoking Status: Tobacco use Status Tobacco use date assessed 08/10/23 08/10/23 12:57 Patient Tobacco Use Status Never used Tobacco 08/10/23 12:57 e-Cigarette/Vaping Use Never Used 08/10/23 12:57 Thrive Assessment: Date of Thrive Assessment Date Thrive assessed 07/27/23 08/10/23 12:57 Const General: healthy appearing, no acute distress, alert and awake Nutritional Appearance: well nourished Orientation/consciousness: oriented to person, oriented to place and oriented to time HENMT Ears: TM's normal bilaterally General nose exam: Normal nasal mucous membranes and turbinates present Eyes Conjunctivae: conjunctivae normal Sclerae: sclerae normal Pupils: Equal, round and reactive pupils present Neck Neck: Yes no lymphadenopathy and Yes no JVD Thyroid: Thyroid normal Carotids: no bruits Resp Effort & Inspection: normal respiratory effort and not tachypneic Auscultation: no crackles, no rales, no rhonchi and no wheezes Cardio Rate: regular rate Rhythm: regular rhythm Heart sounds: no murmurs and normal S1 and S2 GI Palpation (GI): Soft to palpation, nontender, no hepatomegaly and no splenomegaly Auscultation: normal bowel sounds Skin General skin exam: no rashes or lesions noted and dry skin Neuro General: oriented to person, oriented to place and oriented to time Cranial nerves: Yes Equal, round and reactive pupils present Speech: No Abnormal speech present Gait exam (Neuro): Normal gait present Motor exam (neuro): no tremor noted Extrem Right upper extremity: full ROM Left upper extremity: full ROM Right lower extremity: full ROM; no edema Left lower extremity: full ROM; no edema Psych Mental Status: mental status grossly normal Speech and movement: Normal speech and movement present Affect: normal affect Attitude: cooperative Thought process: Normal thought process present Assessment and Plan Assessment & Plan (1) Grief reaction: Code(s): F43.21 - Adjustment disorder with depressed mood Plan: As per HPI (2) Severe major depression: Code(s): F32.2 - Major depressive disorder, single episode, severe without psychotic features Plan: As per HPI patient for having increased depression due to her recent her daughter. Psychiatric medication adjustments have been made. She is speaking with a mental therapist and her psychiatrist and feels well supported. She is back to work full-time has been helpful. She mentions she would like to join a support group for people that have lost children. Prazosin has been started 3 mg at night which has been helpful for her night terrors. (3) Obese: Code(s): E66.9 - Obesity, unspecified Qualifiers: Body mass index: BMI 31.0-31.9 Obesity classification: adult class 1 (BMI 30 - 34.9) Obesity type: due to excess calories Serious obesity comorbidity presence: without serious comorbidity Qualified Code(s): E66.09 - Other obesity due to excess calories; Z68.31 - Body mass index [BMI] 31.0-31.9, adult Plan: Unfortunately has gained weight. Likely due to psychiatric medications. Willing to try Ozempic (4) DMII (diabetes mellitus, type 2): Code(s): E11.9 - Type 2 diabetes mellitus without complications Qualifiers: Diabetes mellitus complication status: with hyperglycemia Diabetes mellitus penitentiary insulin use: without penitentiary use Qualified Code(s): E11.65 - Type 2 diabetes mellitus with hyperglycemia Plan: Patient's most recent fasting blood sugar and diabetic range. Willing to try Ozempic for added benefit of weight loss Medications: New semaglutide (Ozempic) for 4 weeks 0.25 mg (0.368 mL) subcut QWEEK 6 weeks 3 mL 1RF E11.9 - Type 2 diabetes mellitus without complications, E66.9 - Obesity, unspecified Changed From prazosin 3 mg See Protocol PO BEDTIME F32.2 - Major depressive disorder, single episode, severe without psychotic features To prazosin 3 mg See Protocol PO BEDTIME 30 days 90 caps 3RF F32.2 - Major depressive disorder, single episode, severe without psychotic features Coding Level of Care Code Est Pt Level 4 (00450) Diagnoses Grief reaction F43.21 Severe major depression F32.2 Class 1 obesity due to excess calories without serious comorbidity with body mass index (BMI) of 31.0 to 31.9 in adult E66.09; Z68.31 Body mass index: BMI 31.0-31.9 Obesity classification: adult class 1 (BMI 30 - 34.9) Obesity type: due to excess calories Serious obesity comorbidity presence: without serious comorbidity Type 2 diabetes mellitus with hyperglycemia, without long-term current use of insulin E11.65 Diabetes mellitus complication status: with hyperglycemia Diabetes mellitus toolroom checker insulin use: without penitentiary use
== END 2023-08-10 13:26 | disposition home or self-care (01) ==
PROVIDERS: PCP Physician Assistant; Visit Provider Physician Assistant
DX: F32.2 Major depressive disorder, single episode, severe without psychotic features (principal); E66.09 Other obesity due to excess calories; Z68.31 Body mass index [BMI] 31.0-31.9, adult; E11.65 Type 2 diabetes mellitus with hyperglycemia
CPT/HCPCS: 99214

== ENCOUNTER 2023-09-23 07:59 | Outpatient (AMB) | payer OTHER, SELFPAY ==
--- NOTE | 2023-09-23 08:02 | A.OFFVIS_ITS ---
Intake Vital Signs 09/23/23 08:03 Height 5 ft 3 in Weight 187 lb 2.759 oz BMI 33.2 BP 122/64 Blood Pressure Location Lt brachial Position Sitting Pulse 60 Pulse Source Pulse Oximeter Temp 97 F Temp Source Skin Pulse Oximetry (%) 96 Oxygen Delivery Method Room Air Intake Visit Reasons: fm, ehd Intake Note: Patient last seen 03/17/23, presents today for follow up and test results. Field Human Resources Manager Required: No Accompanied by: Self / Same As Patient Allergies erythromycin base [ERYTHROMYCIN BASE] Allergy (Severe, Verified 09/23/23 08:06) PANCREATITIS Penicillins [PCN] Allergy (Severe, Verified 09/23/23 08:06) HIVES Medication List - Last Reconciled 09/23/23 by Clifton Velez MD aripiprazole 5 mg PO DAILY clonazepam 0.5 mg PO TID PRN 30 days dextroamphetamine-amphetamine 20 mg ER 1 cap PO DAILY@1400 dextroamphetamine-amphetamine 30 mg ER 1 cap PO DAILY@0800 diclofenac sodium 1% 1 ea topical DAILY fluoxetine 60 mg (3 x 20 mg) PO DAILY 30 days hydroxyzine HCl 25 mg PO TID PRN 30 days pantoprazole 20 mg PO DAILY prazosin 3 mg See Protocol PO BEDTIME 30 days pregabalin 300 mg PO BID semaglutide (Ozempic) 0.25 mg (0.368 mL) subcut QWEEK 6 weeks tizanidine 4 mg PO TID PRN trazodone 50 mg PO BEDTIME PRN 30 days HPI HPI Comments History of Present Illness Details The patient returns for evaluation of her fibromyalgia and osteoarthritis. She says she feels about the same. She remains on Lyrica 300 b.i.d., tizanidine 4 mg t.i.d., and Tylenol Arthritis. She does use some diclofenac gel as well. She remains on Abilify, clonazepam, Adderall, fluoxetine, hydroxyzine, and trazodone. It sounds as if her mental health condition is reasonably stable at present. She did receive a Synvisc injection in the right knee in Orthopedics for her OA. This was helpful for a while but it is now starting to bother her once again. She has also had corticosteroid injections in the back from Dr. Olmedo. They were somewhat helpful as well. She has had distant surgery on the left shoulder but it is occasionally bothersome. I had referred her for physical therapy for the shoulder earlier in the year but apparently she says she was never called about that. [facility] Medical History (Updated 09/23/23 @ 09:52 by Clifton Velez MD) Osteoarthritis Depression GERD (gastroesophageal reflux disease) Atypical chest pain GEORGES (obstructive sleep apnea) On anticoagulant therapy Menorrhagia Pulmonary embolism Syncope and collapse Subchondral sclerosis EDS (Juan-Danlos syndrome) Surgical History Hx of colonoscopy Hx of hand surgery History of endometrial ablation H/O bilateral breast reduction surgery Hx of section History of back surgery H/O knee surgery H/O shoulder surgery (~02/2019) Family History Paternal Aunt Breast cancer Father Diabetes High cholesterol HTN (hypertension) Maternal Uncle Stroke Maternal Grandfather Emphysema lung Lung cancer Maternal Grandmother Asthma Son Asthma Social History Household Members: None Housing: House Do you presently have visiting nurse or other home services: Yes (home health aid for housekeeping) Alcohol intake: never Comment: stated was minimal Patient Tobacco Use Status: Never used Tobacco e-Cigarette/Vaping Use: Never Used Second Hand Smoke Exposure: No Substance Use Type: Marijuana service: No Current occupational status: employed 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 Negative for appetite change, weight change, fever, chills, malaise Eyes Details: Occasional headache. Negative for vision change, dry eyes, and dizziness ENT Details: Negative for hearing change, tinnitus, oral ulcer, nose bleeds and oral dryness. Card Details: Negative chest pain, edema and syncope Resp Details: Negative for SOB, cough and wheezing GI Details: Negative indigestion/heartburn, nausea, abdominal pain, bowel changes, diarrhea, constipation and bloody stool. Psych Details: anxiety, depression stable with current medications Endo Details: Negative for polyuria and polydypsia Michael/Lymph Details: Negative for excessive bruising or bleeding. Physical Exam Vital Signs: Last Vital Signs Temp 97 F 09/23/23 08:03 Pulse 60 09/23/23 08:03 BP 122/64 09/23/23 08:03 Pulse Ox 96 09/23/23 08:03 Oxygen Delivery Method Room Air 09/23/23 08:03 BMI result Body Mass Index 33.2 APPEARANCE: Patient in no acute distress EXTREMITIES: No edema, no calf tenderness, normal peripheral pulses. SKIN: No inflammatory or neoplastic lesions. Normal color and turgor JOINT EXAM: Cervical Spine:.? Full range of motion without pain; mild cervical muscle tenderness. Thoracic Spine:.? No scoliosis.? Mild paraspinal muscle tenderness on palpation. Lumbar Spine:.? Alignment normal.? Full range of motion without pain, no tenderness. Chest Wall:.? No tenderness, swelling, increased warmth or erythema. Hands:? Right:? Slight pain across the MCPs but no swelling is appreciated.? There is slight tenderness of the MCPs but no triggering or swelling is noted. There is also no tenderness or swelling in the PIP or DIP joints.? No sensory loss or thenar atrophy.? Left: Slight tenderness across the MCPs without swelling.? Other joints have normal pain-free range of motion without tenderness, swelling, increased warmth or erythema. Able to make a full fist and has a good hearing aid mechanic strength. Wrists:.? Mild pains with flexion extension at 75 degrees with some dorsal tenderness but no swelling, increased warmth or erythema.? She is able to passively abduct both thumbs such that they touched the forearm. Elbows:.? There is some degree of hyperextension the elbows. This is perhaps for 15 degrees.? However there is pain-free range of motion without tenderness, swelling, increased warmth or erythema. Shoulders:.? Left:? Mild pain with abduction at 135 degrees or with more than 20 degrees of internal or external rotation. There is mild subacromial, anterior and posterior tenderness. I do not detect any abductor weakness or adenopathy.? Right:? Full range of motion without pain. No tenderness, weakness, swelling, increased warmth or erythema. Hips:.? Full range of motion without pain. Hip bursa:.? Mild return tenderness. Knees:.??Right: Multiple well-healed scars are noted. There is mild pain at full extension or flexion.? Mild medial tenderness without redness or effusion.? Left:? Normal pain-free range of motion with slight peripatellar tenderness but no effusion, joint margin tenderness, swelling, increased warmth or erythema.? Ankles:? Normal pain-free range of motion with slight tenderness but no swelling, increased warmth or erythema. Feet:? Normal pain-free range of motion without tenderness, swelling, increased warmth or erythema. Tender points:? Mild tenderness to digital palpation at the trapezius, second rib, lateral epicondyle, knees, greater trochanter? area bilaterally. ?? Results Reviewed Results Reviewed: Laboratory Tests 07/23/23 07/25/23 20:17 10:09 WBC 7.5 Hgb 11.3 L Creatinine 0.83 TSH 1.43 [place] [id number] XRay Report Signed Patient: Deb Malcolm MR#: [id number] : 1975 Acct:[id number] Age/Sex: 47 / F ADM Date: 03/17/23 Ordering Physician: Clifton Velez MD Date of Service: 03/17/23 Procedure(s): XR shoulder LT min 2V Accession Number(s): [id number] cc: Clifton Velez MD~ EXAMINATION: XR SHOULDER, LEFT CLINICAL INFORMATION: Other specified post procedural is states Pain COMPARISON: None available. TECHNIQUE: AP external rotation, Grashey, scapular Y, and axillary views of the left shoulder. FINDINGS: The bones and soft tissues are normal. No fracture. Glenohumeral and acromioclavicular alignment is anatomic with normal joint space. No abnormal soft tissue calcifications. XR/XR shoulder LT min 2V IMPRESSION: No bony abnormality. Dictated By: Sharon Ervin MD Assessment & Plan Assessment & Plan (1) Tendinitis of left rotator cuff: Code(s): M75.82 - Other shoulder lesions, left shoulder (2) Osteoarthritis of right knee: Code(s): M17.11 - Unilateral primary osteoarthritis, right knee (3) Fibromyalgia: Code(s): M79.7 - Fibromyalgia Plan There are many tender points but no signs of an active inflammatory disease. The back pain is likely due to osteoarthritis and degenerative disc disease. She has had surgery on the left shoulder and now has impingement symptoms suggesting some rotator cuff tendinitis. I think again a course of physical therapy may be helpful so we will try to arrange that. She seems to be taking the medications including the pregabalin without any apparent side effects so I think it can be continued. Follow-up in 6 months would be reasonable. Orders: Orders PT Evaluation and Treatment Today M75.82 - Other shoulder lesions, left shoulder Coding Level of Care Code Est Pt Level 3 (85013) Diagnoses Tendinitis of left rotator cuff M75.82 Osteoarthritis of right knee M17.11 Fibromyalgia M79.7
[2023-09-23 08:03] VITALS: BP 122/64; PULSE 60; TEMP 36.1; O2SAT 96; BMI 33.2
== END 2023-09-23 08:34 | disposition home or self-care (01) ==
PROVIDERS: PCP Physician Assistant; Visit Provider Internal Medicine Rheumatology
DX: M75.82 Other shoulder lesions, left shoulder (principal); M17.11 Unilateral primary osteoarthritis, right knee; M79.7 Fibromyalgia
CPT/HCPCS: 99213

== ENCOUNTER → 2023-09-23 07:59 | Outpatient (BNVA) | payer OTHER, SELFPAY | PROVIDERS: PCP Physician Assistant; Visit Provider Internal Medicine Rheumatology ==

== ENCOUNTER 2023-09-24 09:17 | Outpatient (REF) | payer OTHER, SELFPAY ==
--- NOTE | ~2023-09-24 | XR_ITS ---
EXAMINATION: XR SHOULDER, LEFT CLINICAL INFORMATION: Impingement. COMPARISON: Left shoulder radiographs dated 03/17/2023. TECHNIQUE: AP external rotation, Grashey, scapular Y, and axillary views of the left shoulder. FINDINGS: No acute fracture or dislocation. No joint space narrowing or marginal osteophytes. Mild prominence of the acromioclavicular space is unchanged when compared to remote radiographs. No acute injury. No abnormal soft tissue calcification. No osseous erosion. XR/XR shoulder LT min 2V IMPRESSION: Unremarkable examination.
== END 2023-09-24 09:18 | disposition home or self-care (01) ==
LOC: HO.XRAY 09:17
PROVIDERS: PCP Physician Assistant; Visit Provider Physical Medicine & Rehabilitation
DX: M75.42 Impingement syndrome of left shoulder (principal)
CPT/HCPCS: 73030

== ENCOUNTER 2023-10-22 13:07 | Outpatient (REF) | payer OTHER, SELFPAY ==
[2023-10-28 05:39] LABS: PTT (LAC) Screen 38 sec (<=40)
== END 2023-10-22 13:08 | disposition home or self-care (01) ==
LOC: HO.LAB 13:07
PROVIDERS: Visit Provider Psychiatry & Neurology Neurology
DX: R55 Syncope and collapse (principal)
CPT/HCPCS: 36415; 85597; 85598; 85613; 85730; 86147

== ENCOUNTER 2023-10-27 07:00 | Outpatient (RCR) | payer OTHER, SELFPAY ==
--- NOTE | 2023-10-21 10:49 | MHC.PT.EP ---
[facility] [place] Office [place] Office [place] Office [address] Rashard Ballard [address] [phone] F: [phone] F: [phone] F: [phone] F: [phone] Physical Therapy Plan of Care Date of Evaluation: 10/21/23 Date of Surgery: Diagnosis: TENDONITIS LEFT ROTATOR CUFF Assessment: 48 YO FEMALE REF TO PT FOR Lt SHOULDER ANTERIOR SHOULDER/ RC PAIN- SHE HAS A H/O Lt DCE/SAD APPROX 7 YRS AGO- OF IMPORTANCE, THE Pt HAS A H/O EDS (Juan-Danlos syndrome), CERVICAL ACDF C5/C6, ON ANTICOAG THERAPY, H/O PULM EMBOLISM. 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 THE Pt IS Rt HAND DOMINANT- HER PAIN IS WORST WHILE SLEEPING SHE PREFERS SIDESLEEPING. OBJECTIVE FINDINGS INCLUDE: DECR POSTURAL AWARENESS, TIGHT/ DOMINANT PECT MM, WEAK POST RC/ SCAPULAR MM, TTP Lt UT/ LEV /ANT GH, AND PAIN IN Lt ANT GH. FUNCTIONAL LIMITATIONS INCLUDE DECR MADHAV TO PHYSICALLY CHALLENGING ADLs W REG ADLs / WORK TASKS AND SORENESS THROUGHOUT THE RANGE OF MOTION. SHE WOULD BENEFIT FROM GENTLE PT, ADDRESSING POSTURE, SOFT TISSUE MOB , AND THER EX W RESPECT TO EDS. Frequency and Duration: The patient will be seen 2 x WK x 5 WKS Short Term Goals: *Pt INDEP SELF-CORRECT POSTURE W VARIED ADLs, WORK-SITE *DECR Lt ANT SH PAIN TO 2-12/19 *INITIATE HEP *Pt DEMON APPROP SCAP DEPR/ RETRACTION W/O PECT MM COMPENSATION/ DOMINANCE Prison Goals: *Pt INDEP W HEP AND SELF-SX MGMT STRATEGIES *Pt RESUME REG ADLS W/O Lt SH SXS IMPACTNG HER MADHAV-> IMPROVED SPADI BY 8 POINTS (AT EVAL 34/130) *Pt REPORT ABLE TO SIDESLEEP W/O Lt SH SXS SELF-LIMITING Treatment Plan: Modalities to reduce pain, spasms and effusion. Manual therapy to restore motion and function. Therapeutic exercise to improve strength and flexibility. Neuromuscular re-education for posture and balance. Therapeutic activities to return to functional activities of daily living. Electronically signed by: JAMAL MORRISSEY PT Please sign and return to therapist. Thank you for your referral.
--- NOTE | 2023-11-05 07:42 | MHC.PT.DC ---
[facility] [place] Office [place] Office [place] Office [address] Rashard Ballard 140 [facility] [phone] F: [phone] F: [phone] F: [phone] F: [phone] Physical Therapy Discharge Report Diagnosis: TENDONITIS LEFT ROTATOR CUFF Date of Surgery: Date of Evaluation: 10/21/23 Date of Discharge: 11/05/23 Treatments to Date: 2 Cancellations to Date: 0 No Shows to Date: 4 Discharge Status: Patient Elected to Stop Visit Non-compliance Discharge Summary: MS BEARD APPEARED TO RESPOND WELL TO GENTLE, GRADUAL PROGRESSION W EXER-> GRACIE EXER TO ADDRESS SH STABILITY AND INDIRECTLY EASE ANT Lt SH TISSUE TENSION- WE INITIATED A GENTLE KT TRIAL TO EASE TISSUE TENSION AND POSTURAL CARRYOVER W ADLs/WORK-SITE TASKS. THE Pt IS DISCHARGED HOWEVER, PER THE PT DEPT ATTENDANCE POLICY, DUE TO POOR ATTENDANCE FOR SCHEDULED PT APPTS NOTED ABOVE. Electronically signed by: JAMAL MORRISSEY,PT Please sign and return to therapist. Thank you for your referral.
== END 2023-11-05 07:42 | disposition home or self-care (01) ==
LOC: HO.PT 07:00
PROVIDERS: PCP Physician Assistant; Visit Provider Internal Medicine Rheumatology
DX: M75.82 Other shoulder lesions, left shoulder (principal)
CPT/HCPCS: 97035; 97140; 97162; 97530

== ENCOUNTER 2023-10-29 17:19 | Outpatient (REF) | payer OTHER, SELFPAY ==
--- NOTE | ~2023-10-29 | MR_ITS ---
EXAMINATION: MR BRAIN WITHOUT CONTRAST CLINICAL INFORMATION: Syncope. Collapse. COMPARISON: CT head from 05/05/2023. TECHNIQUE: MRI of the brain was obtained using routine sequences without contrast. FINDINGS: No focal restricted diffusion is demonstrated to suggest acute or subacute cerebral ischemia. No evidence of acute or chronic hemorrhagic products on heme-sensitive imaging. Few nonspecific scattered periventricular and deep white matter faint T2 FLAIR hyperintensities. The ventricles are normal in morphology and size. No abnormal mass effect. No midline shift. Normal appearance of the pituitary gland. Normal positioning of the cerebellar tonsils. Normal arterial and venous vascular flow voids are present. Normal, homogeneous marrow signal. Mild mucosal thickening of the paranasal sinuses. Moderate leftward nasal septal deviation. No signal abnormalities within the mastoids. MR/MR head/brain wo con IMPRESSION: 1. No acute intracranial abnormalities. 2. Mild nonspecific white matter changes.
== END 2023-10-29 17:20 | disposition home or self-care (01) ==
LOC: HO.MRI 17:19
PROVIDERS: PCP Physician Assistant; Visit Provider Psychiatry & Neurology Neurology
DX: R55 Syncope and collapse (principal)
CPT/HCPCS: 70551

== ENCOUNTER 2024-04-27 13:05 | Outpatient (AMB) | payer OTHER, SELFPAY ==
[2024-04-27 13:07] VITALS: BP 98/64; PULSE 76; O2SAT 97; BMI 31.9
--- NOTE | 2024-04-27 13:07 | A.OFFPC_ITS ---
Vital Signs 04/27/24 13:07 Height 5 ft 3 in Weight 180 lb 4 oz BMI 31.9 BP 98/64 Blood Pressure Location Lt brachial Position Sitting Pulse 76 Pulse Source Pulse Oximeter Pulse Oximetry (%) 97 Oxygen Delivery Method Room Air Intake Visit Reasons: OD SUICIDE ATTEMPT String Laster Required: No Accompanied by: Self / Same As Patient Allergies erythromycin base [ERYTHROMYCIN BASE] Allergy (Severe, Verified 04/27/24 13:18) PANCREATITIS Penicillins [PCN] Allergy (Severe, Verified 04/27/24 13:18) HIVES Medication List - Last Reconciled 04/27/24 by Betito Rico PA-C aripiprazole 5 mg PO DAILY cholecalciferol (vitamin D3) 50 mcg PO DAILY 90 days clonazepam 0.5 mg PO TID PRN 30 days dextroamphetamine-amphetamine 20 mg ER 1 cap PO DAILY@1400 dextroamphetamine-amphetamine 30 mg ER 1 cap PO DAILY@0800 diclofenac sodium 1% 1 ea topical DAILY fluoxetine 60 mg (3 x 20 mg) PO DAILY 30 days hydroxyzine HCl 25 mg PO TID PRN 30 days pantoprazole 20 mg PO DAILY prazosin 3 mg See Protocol PO BEDTIME 30 days pregabalin 300 mg PO BID semaglutide (weight loss) (Wegovy) 0.5 mg (0.5 mL) subcut QWEEK 4 weeks tizanidine 4 mg PO TID PRN trazodone 50 mg PO BEDTIME PRN 30 days valacyclovir (Valtrex) 500 mg PO BID 3 days Tobacco use date assessed: 04/27/24 Dental Screening Dental Screen Date: 04/27/24 Did you have a dental visit in the last 12 months?: Yes Did you have a dental problem in the last 6 months where you did not have access to dental care?: No Was dental information given to patient?: Patient has dentist HPI OD SUICIDE ATTEMPT HPI Details Patient is a 48-year-old female here today for hospital discharge follow-up . Patient has a past medical history significant for EDS, fibromyalgia, ADHD, mood disorder. Recently admitted to the hospital for his acute suicide attempt due to feeling overwhelmed increasingly depressed prompted by the passing of her daughter whom was living in [place]. Patient was in mid for a few days in the psychiatric unit. Med adjustments were made to her existing medications and prazosin was discontinued She reports the prazosin has been helpful on reducing her night terrors and symptoms at night. Patient does have a psychiatrist nurse practitioner whom is managing her mental health medications. She reports she would like to establish with a mental health counselor for grief counseling. [facility] Medical History (Updated 04/28/24 @ 12:46 by Betito Rico PA-C) Osteoarthritis Depression GERD (gastroesophageal reflux disease) Atypical chest pain GEORGES (obstructive sleep apnea) On anticoagulant therapy Menorrhagia Pulmonary embolism Syncope and collapse Subchondral sclerosis EDS (Juan-Danlos syndrome) Surgical History Hx of colonoscopy Hx of hand surgery History of endometrial ablation H/O bilateral breast reduction surgery Hx of section History of back surgery H/O knee surgery H/O shoulder surgery (~02/2019) Family History Paternal Aunt Breast cancer Father Diabetes High cholesterol HTN (hypertension) Maternal Uncle Stroke Maternal Grandfather Emphysema lung Lung cancer Maternal Grandmother Asthma Son Asthma Social History Household Members: None Housing: House Do you presently have visiting nurse or other home services: Yes (home health aid for housekeeping) Alcohol intake: never Comment: stated was minimal Patient Tobacco Use Status: Never used Tobacco e-Cigarette/Vaping Use: Never Used Second Hand Smoke Exposure: No Substance Use Type: Marijuana service: No Current occupational status: employed 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 1. Little interest or pleasure in doing things: several days 2. Feeling down, depressed, or hopeless: more than half the days 3. Trouble falling or staying asleep, or sleeping too much: not at all 4. Feeling tired or having little energy: more than half the days 5. Poor appetite or overeating: several days 6. Feeling bad about yourself - or that you are a failure or have let yourself or your family down: more than half the days 7. Trouble concentrating on things, such as reading the newspaper or watching television: several days 8. Moving or speaking so slowly that other people could have noticed. Or the opposite - being so fidgety or restless that you have been moving around a lot more than usual: not at all 9. Thoughts that you would be better off or of hurting yourself in some way: several days Total score: 10 Depression Screening Interpretation: Positive Depression Screening Follow-up: Existing condition and In treatment Depression Screening Done: Yes 62360 - PHQ-9 Billing: Yes Source: Developed by Drs. Joseluis Chew, Tameka Lane, Jose J Josue and colleagues, with an educational ligia from [employer]. Thrive Questionnaire Date Thrive assessed: 04/27/24 I am a: Patient What is your living situation today?: I have a steady place to live Within the past 12 months, did the food you bought not last and you didn't have the money to get more?: Never true Within the past 12 months, did you worry whether your food would run out before you got money to buy more?: Never true Do you have trouble paying for medicines?: No Do you have trouble getting transportation to medical appointments?: No Do you have trouble paying your heating and electricity bill?: No Do you have trouble taking care of your child, family member or friend?: No Do you have trouble with day-to-day activities such as bathing, preparing meals, shopping, managing finances, etc.?: No Are you currently unemployed and looking for a job?: No Are you interested in more education?: No Please select the resources that you would like help with: None Currently or been in a relationship where the following occur: No concerns reported THRIVE Score: 0 AUDIT C Alcohol Use Questionnaire (AUDIT-C) 1. How often do you have a drink containing alcohol?: Never 3. How often do you have six or more drinks on one occasion?: Never Total Score: 0 ARLENE-7 AMB Questionnaire ARLENE-7 Date ARLENE - 7 assessed: 04/27/24 Feeling nervous, anxious, or on edge: 1 = Several days Not being able to stop or control worryin = More than half the days Worrying too much about different things: 2 = More than half the days Trouble relaxin = Several days Being so restless that it is hard to sit still: 1 = Several days Becoming easily annoyed or irritable: 1 = Several days Feeling afraid as if something awful might happen: 0 = Not at all Total ARLENE-7 score (0-4 normal; 5-9 mild; 10-14 moderate; 15-21 severe): 8 Source: Developed by Drs. Joseluis Chew, Tameka Lane, Jose J Josue and colleagues, with an educational ligia from [employer]. ARLENE-7 Assessment Billing ARLENE-7 Assessment Tool: ARLENE-7 Assessment 73092 Review of Systems Const Denies headache(s) Eyes Denies loss of vision ENT Denies vertigo, Denies dizziness, Denies headache(s) and Denies sore throat Card Denies chest pain, Denies leg edema and Denies lightheadedness Resp Denies cough, Denies hemoptysis and Denies wheezing GI Denies abdominal pain, Denies melena, Denies constipation, Denies diarrhea and Denies vomiting Denies urinary frequency, Denies dysuria and Denies urinary urgency Musc Denies arthralgias, Denies joint swelling, Denies numbness and Denies tingling Neuro Denies Abnormal speech present, Denies behavioral changes, Denies vertigo, Denies dizziness, Denies headache(s), Denies loss of vision, Denies memory loss, Denies numbness and Denies tingling Psych Denies anxiety, Denies behavioral changes, Denies depression, Denies memory loss and Denies panic attacks Michael/Lymph Denies easy bleeding and Denies easy bruising Aller/Immun Denies wheezing Physical exam (Primary Care) Vital Signs: Last Vital Signs Pulse 76 04/27/24 13:07 BP 98/64 04/27/24 13:07 Pulse Ox 97 04/27/24 13:07 Oxygen Delivery Method Room Air 04/27/24 13:07 BMI result Body Mass Index 31.9 Tobacco/Smoking Status: Tobacco use Status Tobacco use date assessed 04/27/24 04/27/24 13:16 Patient Tobacco Use Status Never used Tobacco 04/27/24 13:12 e-Cigarette/Vaping Use Never Used 04/27/24 13:12 PHQ-9: PHQ-9 Score PHQ-9: Total score 10 04/28/24 08:13 Depression Screening Interpretation: Positive Depression Screening Follow-up: Existing condition and In treatment Thrive Assessment: Date of Thrive Assessment Date Thrive assessed 04/27/24 04/27/24 13:12 Currently or been in a relationship where the following occur: No concerns reported Const General: healthy appearing, no acute distress, alert and awake Nutritional Appearance: well nourished Orientation/consciousness: oriented to person, oriented to place and oriented to time HENMT Ears: TM's normal bilaterally General nose exam: Normal nasal mucous membranes and turbinates present Eyes Conjunctivae: conjunctivae normal Sclerae: sclerae normal Pupils: Equal, round and reactive pupils present Neck Neck: Yes no lymphadenopathy and Yes no JVD Thyroid: Thyroid normal Carotids: no bruits Resp Effort & Inspection: normal respiratory effort and not tachypneic Auscultation: no crackles, no rales, no rhonchi and no wheezes Cardio Rate: regular rate Rhythm: regular rhythm Heart sounds: no murmurs and normal S1 and S2 GI Palpation (GI): Soft to palpation, nontender, no hepatomegaly and no splenomegaly Auscultation: normal bowel sounds Skin General skin exam: no rashes or lesions noted and dry skin Neuro General: oriented to person, oriented to place and oriented to time Cranial nerves: Yes Equal, round and reactive pupils present Speech: No Abnormal speech present Gait exam (Neuro): Normal gait present Motor exam (neuro): no tremor noted Extrem Right upper extremity: full ROM Left upper extremity: full ROM Right lower extremity: full ROM; no edema Left lower extremity: full ROM; no edema Psych Mental Status: mental status grossly normal Speech and movement: Normal speech and movement present Affect: normal affect Attitude: cooperative Thought process: Normal thought process present Assessment and Plan Assessment & Plan (1) Grief reaction: Code(s): F43.21 - Adjustment disorder with depressed mood Plan: As per HPI (2) Severe major depression: Code(s): F32.2 - Major depressive disorder, single episode, severe without psychotic features Plan: As per HPI patient for having increased depression due to her recent her daughter. Psychiatric medication adjustments have been made. She is now off of prazosin She is speaking with a psychiatrist and feels she has support from her family. She does have an action plan in place for feelings of suicidality . She is back to work full-time has been helpful. She would like to establish with a grief counselor. (3) GERD (gastroesophageal reflux disease): Code(s): K21.9 - Gastro-esophageal reflux disease without esophagitis Qualifiers: Esophagitis presence: without esophagitis Qualified Code(s): K21.9 - Gastro-esophageal reflux disease without esophagitis Plan: Days he does report having GERD like symptoms. Has used pantoprazole in the past though felt made her symptoms worse. Will trial Carafate. Orders: Orders Lipid Panel 04/27/24 E78.9 - Disorder of lipoprotein metabolism, unspecified Comprehensive [place]. Panel Fast 04/27/24 E78.9 - Disorder of lipoprotein metabolism, unspecified Complete Blood Count no Diff 04/27/24 E78.9 - Disorder of lipoprotein metabolism, unspecified Medications: New sucralfate (Carafate) 1 g PO BID 60 tabs 2RF 30 days K21.9 - Gastro-esophageal reflux disease without esophagitis Discontinued prazosin Discontinued Reason: Doctor's Order 3 mg See Protocol PO BEDTIME 30 days 90 caps 3RF F32.2 - Major depressive disorder, single episode, severe without psychotic features Coding Level of Care Code Est Pt Level 4 (12732) Diagnoses Grief reaction F43.21 Severe major depression F32.2 Gastroesophageal reflux disease without esophagitis K21.9 Esophagitis presence: without esophagitis Additional Codes ARLENE-7 Assessment Billing - ARLENE-7 Assessment Tool: ARLENE-7 Assessment 48307 ([id number])
== END 2024-04-27 14:19 | disposition home or self-care (01) ==
PROVIDERS: PCP Physician Assistant; Visit Provider Physician Assistant
DX: F43.21 Adjustment disorder with depressed mood (principal); F32.2 Major depressive disorder, single episode, severe without psychotic features; K21.9 Gastro-esophageal reflux disease without esophagitis
CPT/HCPCS: 99214

== ENCOUNTER → 2024-06-09 13:37 | Outpatient (RCR) | payer OTHER, SELFPAY ==
[2020-09-12 14:32] VITALS: BP 117/74; PULSE 96; RESP 12; TEMP 36.4; O2SAT 100; BMI 24.5
--- NOTE | 2020-09-12 14:44 | PM.HEMONCCN ---
Subjective - Subjective Chief complaint: consult for PE. Consult date: 09/12/20 Primary Care Provider: Frances Gaytan DO Medical Summary: DIAGNOSIS: PULMONARY EMBOLISM. HPI - Consult Narrative Reason for consult: PULMONARY EMBOLISM Narrative: Deb Malcolm is a pleasant 45 year old lady,45-year-old female who has history of dizziness she says from last year, but said she never passed out , she says usually when she tried to stand and walk she feel dizzy but she take it easy and does not had any episode of passing out until 5 days ago when she was sitting with her child and tried to stand up quickly to do something and then she does not remember she was on the floor-before passing out she says that she felt like she is blacking out and everything going dark, denies any chest pain or shortness of breath or palpitations or any seizure-like activity before that. CTA revealed; Positive pulmonary emboli in the anterior posterior segment of the right lower lobe. No other significant pulmonary abnormality. U/S of L.E: No DVT demonstrated in the bilateral lower extremity. 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 Hirsch who has done outpatient MRI with she is shows subchondral sclerosis in the left hip and she has outpatient appointment being made for ortho. She also says that she is eating and drinking as she regularly does, her orthostatics are fine. Labs hays has mild anemia, hyponatremia mild, EKG shows sinus bradycardia mild. Hospital Course: Patient was found to have pulmonary embolism right lower lobe probably related to limited low mobility due to her underlying EDS, as well as patient was taking contraceptives. Started on subcu Lovenox. Subsequently her shortness of breath improved, walking fine without sob. She was switched to p.o. Eliquis upon discharge. Venous duplex negative Syncopal hays: Etiology unclear but Patient was seen by Cardiology, carotid duplex seems fine, orthostasis negative, telemetry seems also fine except some bradycardia. Cardio saw the patient and recommended outpatient workup for syncopal episode. EDS, left hip-OA / labral injruy stuff: Seen by Ortho recommended outpatient follow-up, patient is to call and make an appointment out patiently with Ortho. Past medical history: EDS hypermobility type. Past surgical history: 1. Has left foot injury has brace. 2. She has ACL replacement and revision of right knee area. 3. Left hip subchondral sclerosis 4. Spinal fusion in neck C5-C6 area 5. Patient also had right shoulder surgery because of arthritis as per the patient. Review of Systems - Constitutional Reports system reviewed and no additional complaints, except as documented, Reports fatigue, Reports lack of energy, Reports malaise, Reports poor appetite, Denies anorexia, Denies fever(s), Denies headache(s), Denies night sweats - Eyes Reports as per HPI, Reports system reviewed and no additional complaints, except as documented, Denies double vision - ENT Reports system reviewed and no additional complaints, except as documented - Cardiovascular Reports system reviewed and no additional complaints, except as documented, Reports shortness of breath - Respiratory Reports no additional respiratory complaints - Gastrointestinal Reports system reviewed and no additional complaints, except as documented - Genitourinary Reports no additional female genitourinary complaints, Reports abnormal vaginal bleeding, Reports heavy periods - Musculoskeletal Reports system reviewed and no additional complaints, except as documented - Integumentary/Breasts Skin/Breast: Reports no additional skin complaints - Neurologic Reports system reviewed and no additional complaints, except as documented - Psychiatric Reports system reviewed and no additional complaints, except as documented - Endocrine Reports no additional endocrine complaints - Hematologic/Lymphatic Reports system reviewed and no additional complaints, except as documented - Allergic/Immunologic Reports system reviewed and no additional complaints, except as documented PMFSH Medical History: Medical History (Last Reviewed 09/21/20 @ 11:09 by Cayla Hdez CMA) EDS (Juan-Danlos syndrome) Oral contraceptive use Subchondral sclerosis Subchondral sclerosis Functional capacity: independent ambulation Patient : No Family History: Family History (Last Reviewed 09/21/20 @ 11:09 by Cayla Hdez CMA) Paternal Aunt Breast cancer Father Diabetes High cholesterol HTN (hypertension) Maternal Uncle Stroke Maternal Grandfather Emphysema lung Lung cancer Maternal Grandmother Asthma Son Asthma Surgical History: Surgical History (Last Reviewed 09/21/20 @ 11:09 by Cayla Hdez CMA) H/O knee surgery H/O shoulder surgery Smoking status: Never smoker Home Medications and Allergies Home Medications Medication Instructions Recorded Confirmed Type Trintellix 1 tab PO DAILY 08/29/20 09/20/20 History buspirone 1 tab PO BID 08/29/20 09/20/20 History clonazepam 0.5 tab PO TID PRN 08/29/20 09/20/20 History dextroamphetamine-amphetamine 1 cap PO QAM 08/29/20 09/20/20 History dextroamphetamine-amphetamine 1 cap PO QAM 08/29/20 09/20/20 History gabapentin 1 tab PO TID 08/29/20 09/20/20 History oxycodone-acetaminophen 1 tab PO Q8H PRN 08/29/20 09/20/20 History tizanidine 1 tab PO Q8H PRN 08/29/20 09/20/20 History apixaban 2.5 mg tablet 2.5 mg PO BID 09/20/20 09/20/20 History Allergies Allergy/AdvReac Type Severity Reaction Status Date / Time erythromycin base Allergy Severe PANCREATITI Verified 09/21/20 11:08 [ERYTHROMYCIN BASE] S Penicillins [PCN] Allergy Severe HIVES Verified 09/21/20 11:08 Physical Exam Vital signs: Vital Signs Temp 97.6 F 09/12/20 14:32 Pulse 96 09/12/20 14:32 Resp 12 09/12/20 14:32 BP 117/74 09/12/20 14:32 Pulse Ox 100 09/12/20 14:32 Intake & Output 09/11/20 09/12/20 09/12/20 18:59 06:59 18:59 Other: Weight 65 kg Weight 65 kg - Constitutional Present: no acute distress - Routine HEENT Exam Head: Present: normal inspection ENT: Present: mucous membranes moist - Routine Neck Exam Present: supple - Routine Respiratory Exam Present: CTAB - Routine Cardiovascular Exam Cardiovascular: Present: RRR, S1, S2 - Routine Abdominal Exam Present: soft, nontender - Routine Rectal Exam Patient deferred: digital exam - Routine Skin Exam Present: intact - Routine Neurological Exam Present: alert, oriented X3 - Detailed Neurological Exam: Coma Scale Eye Opening: Spontaneous (4) Verbal Response: Oriented (5) Motor Response: Obeys commands (6) [place] Coma Scale Total: 15 - Routine Psychiatric Exam Present: normal affect Hem/Onc Consult Result - Labs CBC & Chem 7: 09/12/20 15:01 09/12/20 15:01 Assessment and Plan (1) Pulmonary embolism Status: Acute This is a pleasant unfortunate 45-year-old lady who presented after a syncopal episode. She was diagnosed with pulmonary emboli. The ultrasound of the legs is negative for DVT. Her risk factors: are likely sedentary lifestyle from underlying loose joints from and control use. She is currently on Eliquis. PLAN: Will continue her on the Eliquis, for now. I Will proceed with workup for hypercoagulable state. Will decide about the duration of anticoagulation, based upon the results. She will return in 3 months for a follow-up visit. Thanks, CC: Loli Josue
[2020-09-12 15:03] LABS: MANUAL DIFF FLAG NO
[2020-09-12 15:42] LABS: Basophils Percent Auto 0.1 % (0-2); Eosinophils Absolute Auto 0.1 X10*3/uL (0.0-0.4); Eosinophils Percent Auto 1.6 % (0-4); Hemoglobin 12.4 g/dl (12.0-16.0); Imm Gran Abs Auto 0.02 X10*3/uL (0.00-0.03); Imm Gran Pct Auto 0.3 % (0.0-0.4); Lymphocytes Absolute Auto 2.1 X10*3/uL (1.2-4.9); Mean Corpuscular HGB Conc 31.8 g/dl (31.0-35.0); Mean Corpuscular Hemoglobin 28.1 pg (27.0-33.0); Mean Corpuscular Volume 88.2 fL (80-98); Mean Platelet Volume 9.8 fL (9.4-12.3); Monocytes Absolute Auto 0.5 X10*3/uL (0.1-1.2); Monocytes Percent Auto 6.6 % (2-11); Neutrophils Absolute Auto 4.3 X10*3/uL (2.0-8.3); Neutrophils Percent Auto 61.4 % (45-73); Platelet Count 430 X10*3/uL (160-400); Red Blood Count 4.42 X10*6/uL (4.20-5.50)
[2020-09-12 15:47] LABS: INTERNATIONAL NORM RATIO 1.4 (0.9-1.1); Prothrombin Time 16.9 SEC (10.8-13.0)
[2020-09-12 15:50] LABS: D Dimer 248 NG/ML
[2020-09-12 16:12] LABS: Alanine Aminotransferase 10 U/L (0-31); Albumin Level 4.4 g/dL (3.5-5.0); Alkaline Phosphatase 69 U/L (39-117); Anion Gap 14 (12-20); Aspartate Amino Transferase 18 U/L (5-31); Bilirubin Total 0.9 mg/dL (0.0-1.0); Blood Urea Nitrogen 10 mg/dL (9-16); Calcium 9.5 mg/dL (8.4-10.2); Carbon Dioxide 27 mmol/L (22-29); Chloride 103 mmol/L (96-108); Creatinine Clr Calc Pharmacy 78.3; Estimated Glomerular Filt Rate > 60; Glucose Random 92 mg/dL (60-115); Potassium 4.5 mmol/l (3.3-5.1); Sodium 139 mmol/L (135-145); Total Protein 7.7 g/dL (6.5-8.0)
--- NOTE | 2020-09-13 13:56 | MHC.HEMONCMA ---
Patient called in for a refill on her on her Eliquis, states that she is running low and needs refill. I called and spoke with the patient letting her know that Dr Archuleta is reducing her dose from 5mg BID to 2.5 mg BID. I let her know that she can continue to take the 5mg until she runs out and that the 2.5mg will be ready at the pharmacy for her. She is ok with this plan.
--- NOTE | 2020-09-13 14:20 | MHC.HEMONCMA ---
Called in rx for 2.5mg eliquis for patient per Dr Archuleta. Patient is aware.
[2020-09-14 09:05] LABS: PTT (LAC) Screen 38
[2020-09-14 17:57] LABS: Homocysteine 9.5 umol/L (<10.4)
[2020-09-14 23:48] LABS: Cardiolipin IgG Ab <14 GPL; Cardiolipin IgM Ab 14 MPL
--- NOTE | 2020-10-04 10:02 | MHC.HEMONCMA ---
Patient called in with some concerns, she states that she has been bleeding very heavily from her period, more than usual. She also states that she fell and hit her face/head, and has been dropping things because she is so dizzy. She also states that she can not walk to the bathroom because she is so dizzy. I advised her to go to the ER, but she was very hesitant and did not like my answer, so I let her know that I would put her on hold and get a nurse. I called Yenni over, and she spoke with the patient and advised the patient of the same things, that she needs to go to the ER to be evaluated. Patient told Yenni that she will try to get someone to bring her, and if not she will call an ambulance.
[2020-10-09 14:38] LABS: Anti-Thrombin III Antigen 108 % (80-120); Protein C Activity 126 % (70-180); Protein S Activity rflx Tot&Fr 98 % (60-140)
--- NOTE | 2021-02-06 15:30 | P.PNHO_ITS ---
Medical Summary - Medical Summary Date of Service: 02/06/21 Chief complaint: Follow-up for: PE. Medical Summary: DIAGNOSIS: PULMONARY EMBOLISM. CURRENT THERAPY: Eliquis 2.5 mg b.i.d. Interval History Interval history: Deb Malcolm is a pleasant 45 year old lady, here for a follow-up visit. She tells me she has been feeling quite well, other than feeling tired at times. She had developed heavy vaginal bleeding. the Eliquis was lowered to 2.5 mg b.i.d. she has had the Mirena IUD placed. Since then her bleeding has lightened. No Lower extremity pain or swelling. Denies headache no dizziness. No chest pain or trouble breathing. She denies abdominal pain nausea vomiting heartburn indigestion. Bowels are working without any gross blood in it. She enjoys a good appetite. Her weight is stable. She is in good spirits. Rest of the review of systems is unremarkable. Previous history: She has history of dizziness she says from last year, but said she never passed out , she says usually when she tried to stand and walk she feel dizzy but she take it easy and does not had any episode of passing out until 5 days ago when she was sitting with her child and tried to stand up quickly to do something and then she does not remember she was on the floor-before passing out she says that she felt like she is blacking out and everything going dark, denies any chest pain or shortness of breath or palpitations or any seizure-like activity before that. CTA revealed; Positive pulmonary emboli in the anterior posterior segment of the right lower lobe. No other significant pulmonary abnormality. U/S of L.E: No DVT demonstrated in the bilateral lower extremity. 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 Hirsch who has done outpatient MRI with she is shows subchondral sclerosis in the left hip and she has outpatient appointment being made for ortho. She also says that she is eating and drinking as she regularly does, her orthostatics are fine. Labs hays has mild anemia, hyponatremia mild, EKG shows sinus bradycardia mild. Hospital Course: Patient was found to have pulmonary embolism right lower lobe probably related to limited low mobility due to her underlying EDS, as well as patient was taking contraceptives. Started on subcu Lovenox. Subsequently her shortness of breath improved, walking fine without sob. She was switched to p.o. Eliquis upon discharge. Venous duplex negative Syncopal hays: Etiology unclear but Patient was seen by Cardiology, carotid duplex seems fine, orthostasis negative, telemetry seems also fine except some bradycardia. Cardio saw the patient and recommended outpatient workup for syncopal episode. EDS, left hip-OA / labral injruy stuff: Seen by Ortho recommended outpatient follow-up, patient is to call and make an appointment out patiently with Ortho. Past medical history: EDS hypermobility type. Past surgical history: 1. Has left foot injury has brace. 2. She has ACL replacement and revision of right knee area. 3. Left hip subchondral sclerosis 4. Spinal fusion in neck C5-C6 area 5. Patient also had right shoulder surgery because of arthritis as per the patient. Review of Systems - Constitutional Reports no additional constitutional complaints - Eyes Reports no additional eye complaints - ENT Reports no additional ear, nose, mouth, and throat complaints - Cardiovascular Reports no additional cardiovascular complaints - Respiratory Reports no additional respiratory complaints - Gastrointestinal Reports no additional gastrointestinal complaints - Genitourinary Reports no additional female genitourinary complaints - Musculoskeletal Reports no additional musculoskeletal complaints - Integumentary/Breasts Skin/Breast: Reports no additional skin complaints - Neurologic Reports no additional neurologic complaints, Denies headache(s) - Psychiatric Reports no additional psychiatric complaints - Endocrine Reports no additional endocrine complaints - Hematologic/Lymphatic Reports no additional hematologic/lymphatic complaints - Allergic/Immunologic Reports no additional allergic/immunologic complaints [facility] Medical History: Medical History (Last Reviewed 10/19/20 @ 22:32 by Brett Roldan MD) EDS (Juan-Danlos syndrome) Menorrhagia Oral contraceptive use Pulmonary embolism Subchondral sclerosis Subchondral sclerosis Syncope and collapse Functional capacity: independent ambulation Patient : No Family History: Family History (Last Reviewed 10/19/20 @ 22:32 by Brett Roldan MD) Paternal Aunt Breast cancer Father Diabetes High cholesterol HTN (hypertension) Maternal Uncle Stroke Maternal Grandfather Emphysema lung Lung cancer Maternal Grandmother Asthma Son Asthma Surgical History: Surgical History (Last Reviewed 10/19/20 @ 22:32 by Brett Roldan MD) H/O knee surgery H/O shoulder surgery Social History: Social History (Last Reviewed 10/19/20 @ 22:32 by Brett Roldan MD) Living Situation History: Household Members: Children Housing: Apartment Alcohol History: Alcohol intake: never Alcohol History Details: Alcohol intake frequency: does not drink Tobacco History: Smoking Status: Never smoker Second Hand Smoke Exposure: No Substance Use History: Use of substances other than those prescribed or required for medical reasons : No Nutrition Assessment: Patient : No Occupation Assessmet: service: No Current occupational status: unemployed Smoking status: Never smoker Oncology Screenings - ECOG Performance Status ECOG Performance Status: 0 Home Medications and Allergies Home Medications Medication Instructions Recorded Confirmed Type Trintellix 20 mg PO QAM 08/29/20 02/06/21 History buspirone 15 mg PO BID 08/29/20 02/06/21 History clonazepam 0.5 tab PO TID PRN 08/29/20 02/06/21 History dextroamphetamine-amphetamine 10 mg PO QAM 08/29/20 02/06/21 History dextroamphetamine-amphetamine 30 mg PO QAM 08/29/20 02/06/21 History gabapentin 600 mg PO TID 08/29/20 02/06/21 History oxycodone-acetaminophen 1 tab PO Q8H PRN 08/29/20 02/06/21 History tizanidine 4 mg PO Q8H PRN 08/29/20 02/06/21 History levonorgestrel [Mirena] VAGINAL ONCE 02/06/21 02/06/21 History Allergies Allergy/AdvReac Type Severity Reaction Status Date / Time erythromycin base Allergy Severe PANCREATITI Verified 10/18/20 10:23 [ERYTHROMYCIN BASE] S Penicillins [PCN] Allergy Severe HIVES Verified 10/18/20 10:23 Exam Vital signs: Vital Signs Temp 97.6 F 09/12/20 14:32 Pulse 96 09/12/20 14:32 Resp 12 09/12/20 14:32 BP 117/74 09/12/20 14:32 Pulse Ox 100 12/02/20 14:32 Weight 65 kg Body Mass Index 24.5 - Constitutional Present: no acute distress - Routine HEENT Exam Head: Present: normal inspection Eye: Present: normal appearance ENT: Present: mucous membranes moist - Routine Neck Exam Present: full ROM - Routine Respiratory Exam Present: CTAB - Routine Cardiovascular Exam Cardiovascular: Present: RRR, S1, S2 - Routine Abdominal Exam Present: soft, nontender - Routine Rectal Exam Patient deferred: digital exam - Routine Extremities Exam Present: nontender - Routine Back/Spine/Pelvis Exam Back/Spine: Present: full ROM - Routine Skin Exam Present: intact - Routine Neurological Exam Present: alert, oriented X3 - Detailed Neurological Exam: Coma Scale Eye Opening: Spontaneous (4) - Routine Psychiatric Exam Present: normal affect Data - Labs CBC & Chem 7: 02/06/21 15:42 02/06/21 15:42 Labs: 09/12/20 15:01 Anti-Thrombin III Antigen Routine Cardiolipin Antibodies Routine Complete Blood Count Auto Diff Routine Comprehensive Met. Panel Routine DDimer [D Dimer] Routine Factor V Leiden Routine Homocysteine Routine Lupus Anticoagulant Panel Routine Protein C Activity Reflex Ag Routine Protein S Activity reflex Ag Routine Prothrombin [id number] Routine Prothrombin Time INR Routine Laboratory Last Values WBC 7.0 X10*3/uL (4.8-10.8) 09/12/20 15:01 RBC 4.42 X10*6/uL (4.20-5.50) 09/12/20 15:01 Hgb 12.4 g/dl (12.0-16.0) 09/12/20 15:01 Hct 39.0 % (37-47) 09/12/20 15:01 MCV 88.2 fL (80-98) 09/12/20 15:01 MCH 28.1 pg (27.0-33.0) 09/12/20 15:01 MCHC 31.8 g/dl (31.0-35.0) 09/12/20 15:01 RDW 13.0 % (11.0-16.0) 09/12/20 15:01 Plt Count 430 X10*3/uL (160-400) H D 09/12/20 15:01 MPV 9.8 fL (9.4-12.3) 09/12/20 15:01 Immature Gran % (Auto) 0.3 % (0.0-0.4) 09/12/20 15:01 Neut % (Auto) 61.4 % (45-73) 09/12/20 15:01 Lymph % (Auto) 30.0 % (20-40) 09/12/20 15:01 [place] % (Auto) 6.6 % (2-11) 09/12/20 15:01 Eos % (Auto) 1.6 % (0-4) 09/12/20 15:01 Baso % (Auto) 0.1 % (0-2) 09/12/20 15:01 Lymph # (Auto) 2.1 X10*3/uL (1.2-4.9) 09/12/20 15:01 [place] # (Auto) 0.5 X10*3/uL (0.1-1.2) 09/12/20 15:01 Eos # (Auto) 0.1 X10*3/uL (0.0-0.4) 09/12/20 15:01 Baso # (Auto) 0.0 X10*3/uL (0.0-0.2) 09/12/20 15:01 Abs Immat Gran (auto) 0.02 X10*3/uL (0.00-0.03) 09/12/20 15:01 Absolute Neuts (auto) 4.3 X10*3/uL (2.0-8.3) 09/12/20 15:01 Absolute Nucleated RBC 0.000 X10*3/uL (0.0-0.012) 09/12/20 15:01 Nucleated RBC % (auto) 0.0 /100WBC (0.0-0.2) 09/12/20 15:01 PT 16.9 SEC (10.8-13.0) H D 09/12/20 15:01 INR 1.4 (0.9-1.1) H 09/12/20 15:01 D-Dimer 248 NG/ML 09/12/20 15:01 LA PTT Screen 38 09/12/20 15:01 LA Thrombin Time TNP 09/12/20 15:01 dRVVT Confirm Interp TNP 09/12/20 15:01 dRVVT Mixing Study TNP 09/12/20 15:01 dRVV Screen 42 sec (< OR = 45) 09/12/20 15:01 dRVVT Mix Interpret TNP 09/12/20 15:01 Hexagon Phase Neutraliz TNP 09/12/20 15:01 Lupus Anticoag Interp SEE NOTE (NOT DETECTED) 09/12/20 15:01 Protein C Antigen TNP 09/12/20 15:01 Protein C Activity 126 % (70-180) 09/12/20 15:01 Protein S Activity 98 % (60-140) 09/12/20 15:01 Total Protein S Ag TNP 09/12/20 15:01 Free Protein S Antigen TNP 09/12/20 15:01 Antithrombin III Ag 108 % (80-120) 09/12/20 15:01 Factor V Leiden SEE NOTE 09/12/20 15:01 Factor V Leiden Interp SEE NOTE 09/12/20 15:01 Sodium 139 mmol/L (135-145) 09/12/20 15:01 Potassium 4.5 mmol/l (3.3-5.1) 09/12/20 15:01 Chloride 103 mmol/L (96-108) 09/12/20 15:01 Carbon Dioxide 27 mmol/L (22-29) 09/12/20 15:01 Anion Gap 14 (12-20) 09/12/20 15:01 BUN 10 mg/dL (9-16) 09/12/20 15:01 Creatinine 0.80 mg/dL (0.5-1.4) 09/12/20 15:01 Estim Creat Clear Calc 78.3 09/12/20 15:01 Estimated GFR > 60 09/12/20 15:01 Random Glucose 92 mg/dL (60-115) 09/12/20 15:01 Calcium 9.5 mg/dL (8.4-10.2) D 09/12/20 15:01 Total Bilirubin 0.9 mg/dL (0.0-1.0) 09/12/20 15:01 AST 18 U/L (5-31) 09/12/20 15:01 ALT 10 U/L (0-31) 09/12/20 15:01 Alkaline Phosphatase 69 U/L (39-117) D 09/12/20 15:01 Total Protein 7.7 g/dL (6.5-8.0) 12/02/20 15:01 Albumin 4.4 g/dL (3.5-5.0) 09/12/20 15:01 Homocysteine 9.5 umol/L (<10.4) 09/12/20 15:01 Anti-Cardiolipin IgG Ab <14 GPL 09/12/20 15:01 Anti-Cardiolipin IgM Ab 14 MPL H 09/12/20 15:01 Prothrombin [id number] Mut SEE NOTE 09/12/20 15:01 Prothrombin Mut Interp SEE NOTE 09/12/20 15:01 Progress Note: A/P (1) Pulmonary embolism Status: Inactive Assessment and plan: This is a pleasant unfortunate 45-year-old lady who presented after a syncopal episode. She was diagnosed with pulmonary emboli. The ultrasound of the legs is negative for DVT. Her risk factors: are likely sedentary lifestyle from underlying loose joints from Juan Danlos syndrome, and control use. She is currently on Eliquis. I proceeded with workup for hypercoagulable state. This came back negative. He is clinically doing well. Her D-dimer is:248. PLAN: Will continue her on the Eliquis, 2.5 mg, for now. Will continue to follow clinically and with serial D-dimer levels. Will decide about the duration of anticoagulation, based upon the results. She will return in 6 months for a follow-up visit. Thanks, CC: Loraine Barcenas. - Time Spent With Patient Total time spent is greater than 50% in coordination of care (as documented) at patient's floor/unit and/or counseling patient: 25 - 35 minutes
[2021-02-06 15:35] VITALS: BP 92/61; PULSE 72; RESP 18; TEMP 35.9; O2SAT 97; BMI 21.5
[2021-02-06 15:44] LABS: MANUAL DIFF FLAG NO
[2021-02-06 15:56] LABS: Basophils Percent Auto 0.3 % (0-2); Eosinophils Absolute Auto 0.2 X10*3/uL (0.0-0.4); Eosinophils Percent Auto 2.8 % (0-4); Hematocrit 36.9 % (37-47); Hemoglobin 11.9 g/dl (12.0-16.0); Imm Gran Abs Auto 0.01 X10*3/uL (0.00-0.03); Imm Gran Pct Auto 0.2 % (0.0-0.4); Lymphocytes Absolute Auto 2.8 X10*3/uL (1.2-4.9); Lymphocytes Percent Auto 46.7 % (20-40); Mean Corpuscular HGB Conc 32.2 g/dl (31.0-35.0); Mean Corpuscular Hemoglobin 28.5 pg (27.0-33.0); Mean Corpuscular Volume 88.5 fL (80-98); Mean Platelet Volume 10.1 fL (9.4-12.3); Monocytes Absolute Auto 0.4 X10*3/uL (0.1-1.2); Monocytes Percent Auto 7.4 % (2-11); Neutrophils Absolute Auto 2.5 X10*3/uL (2.0-8.3); Neutrophils Percent Auto 42.6 % (45-73); Platelet Count 286 X10*3/uL (160-400); Red Blood Count 4.17 X10*6/uL (4.20-5.50)
[2021-02-06 16:22] LABS: Alanine Aminotransferase 7 U/L (0-31); Albumin Level 4.5 g/dL (3.5-5.0); Alkaline Phosphatase 58 U/L (39-117); Anion Gap 12 (12-20); Aspartate Amino Transferase 20 U/L (5-31); Bilirubin Total 0.4 mg/dL (0.0-1.0); Blood Urea Nitrogen 16 mg/dL (9-16); Calcium 9.2 mg/dL (8.4-10.2); Carbon Dioxide 28 mmol/L (22-29); Chloride 103 mmol/L (96-108); Creatinine Clr Calc Pharmacy 72.8; Estimated Glomerular Filt Rate > 60; Glucose Random 93 mg/dL (60-115); Sodium 139 mmol/L (135-145); Total Protein 7.5 g/dL (6.5-8.0)
[2021-02-06 16:42] LABS: Ferritin 21 ng/mL (10-250)
== END | disposition home or self-care (01) ==
LOC: HO.ONC 09-12 14:23
PROVIDERS: PCP Internal Medicine; Visit Provider Internal Medicine Medical Oncology
DX: I26.99 Other pulmonary embolism without acute cor pulmonale (principal); Z79.01 Long term (current) use of anticoagulants; Q79.60 Ehlers-Danlos syndrome, unspecified
CPT/HCPCS: 36415; 80053; 81240; 81241; 82728; 83090; 85025; 85301; 85302; 85303; 85305; 85306; 85379; 85597; 85610; 85613; 85730; 86147; 99214

== ENCOUNTER 2024-08-29 15:32 | Outpatient (AMB) | payer OTHER, SELFPAY ==
--- NOTE | 2024-08-29 15:34 | MHC.OFFVIS ---
Vital Signs 08/29/24 15:36 BP 118/70 Intake Visit Reasons: Persistent outbreaks Team Lead: Team Lead Present (Yumiko) Accompanied by: Self / Same As Patient Allergies erythromycin base [ERYTHROMYCIN BASE] Allergy (Severe, Verified 08/29/24 15:35) PANCREATITIS Penicillins [PCN] Allergy (Severe, Verified 08/29/24 15:35) HIVES HPI Comments Details: Presenting complaining of recurrent herpes outbreaks over the last year. Recurrence are according once a month, resolve after episodic treatment with valacyclovir 500 mg p.o. b.i.d. for 3 days. No other associated symptoms. Last STD serology including HIV test all were all negative in 2022 [facility] Medical History (Updated 08/29/24 @ 15:59 by Harjinder Stovall MD) Osteoarthritis Depression GERD (gastroesophageal reflux disease) Atypical chest pain GEORGES (obstructive sleep apnea) On anticoagulant therapy Menorrhagia Pulmonary embolism Syncope and collapse Subchondral sclerosis EDS (Juan-Danlos syndrome) Surgical History Hx of colonoscopy Hx of hand surgery History of endometrial ablation H/O bilateral breast reduction surgery Hx of section History of back surgery H/O knee surgery H/O shoulder surgery (~02/2019) Family History Paternal Aunt Breast cancer Father Diabetes High cholesterol HTN (hypertension) Maternal Uncle Stroke Maternal Grandfather Emphysema lung Lung cancer Maternal Grandmother Asthma Son Asthma Social History Household Members: None Housing: House Do you presently have visiting nurse or other home services: Yes (home health aid for housekeeping) Alcohol intake: never Comment: stated was minimal Patient Tobacco Use Status: Never used Tobacco e-Cigarette/Vaping Use: Never Used Second Hand Smoke Exposure: No Substance Use Type: Marijuana service: No 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 occupational status: employed 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 Gender identity: Female Cognitive needs: No Hearing needs: No Vision needs: No Female Reproductive History Menstrual Age of Menarche: 14 Review of Systems Const All systems reviewed & are unremarkable except as noted in HPI and below Reports as per HPI and Reports no additional complaints GI Reports no additional complaints Reports no additional complaints Physical Exam Vital Signs: Last Vital Signs BP 118/70 08/29/24 15:36 Assessment & Plan Assessment & Plan (1) Recurrent genital HSV (herpes simplex virus) infection: Code(s): A60.00 - Herpesviral infection of urogenital system, unspecified Category: Medical Plan: Recommended the patient repeat serology testing including HIV, hepatitis-B surface antigen, hepatitis-C antibody, and syphilis in addition will discontinue episodic treatment and start daily suppressive treatment with valacyclovir 500 mg p.o. daily. Instructions given the patient to call in case symptoms do not improve. Instructions given the patient to discontinue tizanidine since it interacts with valacyclovir. All questions answered, the patient verbalized understanding Orders: Orders Hepatitis B Surface Antigen Today Z20.2 - Contact with and (suspected) exposure to infections with a predominantly sexual mode of transmission HIV Ab/Ag Today Z20.2 - Contact with and (suspected) exposure to infections with a predominantly sexual mode of transmission Hepatitis C Antibody Today Z20.2 - Contact with and (suspected) exposure to infections with a predominantly sexual mode of transmission Syphilis Screen Today Z20.2 - Contact with and (suspected) exposure to infections with a predominantly sexual mode of transmission Medications: New valacyclovir 500 mg PO DAILY 90 days 90 tabs 3RF Discontinued tizanidine Discontinued Reason: Doctor's Order 4 mg PO TID PRN 270 tabs 0RF for muscle spasm Coding Level of Care Code Est Pt Level 3 (57367) Diagnoses Recurrent genital HSV (herpes simplex virus) infection A60.00
[2024-08-29 15:36] VITALS: BP 118/70
== END 2024-08-29 16:09 | disposition home or self-care (01) ==
LOC: HO.HWS 15:32
PROVIDERS: PCP Physician Assistant; Visit Provider Obstetrics & Gynecology
DX: A60.00 Herpesviral infection of urogenital system, unspecified (principal)
CPT/HCPCS: 99213

== ENCOUNTER → 2024-08-29 15:32 | Outpatient (BNVA) | payer OTHER, SELFPAY | PROVIDERS: PCP Physician Assistant; Visit Provider Obstetrics & Gynecology ==

== ENCOUNTER 2024-10-06 08:07 | Outpatient (AMB) | payer OTHER, SELFPAY ==
[2024-10-06 08:11] VITALS: BP 102/52; PULSE 66; O2SAT 98; BMI 32.4
--- NOTE | 2024-10-06 08:11 | MHC.PC.OV ---
Vital Signs 10/06/24 08:11 Height 5 ft 3 in Weight 183 lb BMI 32.4 BP 102/52 L Blood Pressure Location Lt brachial Position Sitting Pulse 66 Pulse Source Pulse Oximeter Pulse Oximetry (%) 98 Oxygen Delivery Method Room Air Intake Visit Reasons: Overdue PE/Weight loss medication request Allergies erythromycin base [ERYTHROMYCIN BASE] Allergy (Severe, Verified 10/06/24 08:12) PANCREATITIS Penicillins [PCN] Allergy (Severe, Verified 10/06/24 08:12) HIVES Medication List - Last Reconciled 10/06/24 by Betito Rico PA-C aripiprazole 5 mg PO DAILY cholecalciferol (vitamin D3) 50 mcg PO DAILY 90 days clonazepam 0.5 mg PO TID PRN 30 days dextroamphetamine-amphetamine 20 mg ER 1 cap PO DAILY@1400 dextroamphetamine-amphetamine 30 mg ER 1 cap PO DAILY@0800 diclofenac sodium 1% 1 ea topical DAILY fluoxetine 60 mg (3 x 20 mg) PO DAILY 30 days hydroxyzine HCl 25 mg PO TID PRN 30 days pregabalin 300 mg PO BID sucralfate (Carafate) 1 g PO BID 30 days trazodone 50 mg PO BEDTIME PRN 30 days valacyclovir 500 mg PO DAILY 90 days Tobacco use date assessed: 10/06/24 Dental Screening Dental Screen Date: 04/27/24 HPI Overdue PE/Weight loss medication request HPI Details Patient is a 49 y/u F here today for an annual physical. Patient has a past medical history significant for EDS, fibromyalgia, ADHD, mood disorder. .. Mood disorder/ADHD: Followed by a therapist and a psychiatrist whom is working well with her. She feels stable from a mental health point of view. .. Obesity: Deb has been struggling to lose weight. Today's BMI at 32.4. She reports her appetite is somewhat altered due to her mental health medication though when she eats she does not over indulge. She has not been able to be physically active due to chronic pain. Some of her weight issues are likely related to mental health medication namely Abilify and her high dose of Lyrica. .. EDS : Followed by a commercial director and gets injections which have helped reduce her joint pains. Has had multiple surgeries on her knees and neck related to her EDS and disc disorder. Was previously on narcotic pain medication though has been able to get off. Continues on pregabalin which has been helpful reducing her widespread pain. She would like to continue seeing a director process as she reports having a genetic disorder/disposition to EDS. .. 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 Colon cancer screening: Colonoscopy done in 2022-normal repeat 10 years Mammogram: Needs screening mammogram [facility] Medical History Osteoarthritis Depression GERD (gastroesophageal reflux disease) Atypical chest pain GEORGES (obstructive sleep apnea) On anticoagulant therapy Menorrhagia Pulmonary embolism Syncope and collapse Subchondral sclerosis EDS (Juan-Danlos syndrome) Surgical History Hx of colonoscopy Hx of hand surgery History of endometrial ablation H/O bilateral breast reduction surgery Hx of section History of back surgery H/O knee surgery H/O shoulder surgery (~02/2019) Family History Paternal Aunt Breast cancer Father Diabetes High cholesterol HTN (hypertension) Maternal Uncle Stroke Maternal Grandfather Emphysema lung Lung cancer Maternal Grandmother Asthma Son Asthma Social History (Updated 10/06/24 @ 08:22 by Betito Rico PA-C) Household Members: None Housing: House Do you presently have visiting nurse or other home services: Yes (home health aid for housekeeping) Alcohol intake: never Comment: stated was minimal Patient Tobacco Use Status: Never used Tobacco Tobacco use type: Cigarette e-Cigarette/Vaping Use: Never Used Second Hand Smoke Exposure: No Substance Use Type: Marijuana service: No Current occupational status: employed Current occupation: [employer] Sexual 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/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 Gender identity: Female Cognitive needs: No Hearing needs: No Vision needs: No Female Reproductive History Menstrual Age of Menarche: 14 Questionnaire PHQ-9 Over the last 2 weeks, how often have you been bothered by any of the following problems? 1. Little interest or pleasure in doing things: several days 2. Feeling down, depressed, or hopeless: several days 3. Trouble falling or staying asleep, or sleeping too much: several days 4. Feeling tired or having little energy: several days 5. Poor appetite or overeating: several days 6. Feeling bad about yourself - or that you are a failure or have let yourself or your family down: several days 7. Trouble concentrating on things, such as reading the newspaper or watching television: several days 8. Moving or speaking so slowly that other people could have noticed. Or the opposite - being so fidgety or restless that you have been moving around a lot more than usual: not at all 9. Thoughts that you would be better off or of hurting yourself in some way: not at all Total score: 7 Depression Screening Interpretation: Positive Depression Screening Follow-up: Existing condition and In treatment Depression Screening Done: Yes 39311 - PHQ-9 Billing: Yes Source: Developed by Drs. Joseluis Chew, Tameka Lane, Jose J Josue and colleagues, with an educational ligia from [employer]. Thrive Questionnaire Date Thrive assessed: 10/06/24 I am a: Patient What is your living situation today?: I have a steady place to live Within the past 12 months, did the food you bought not last and you didn't have the money to get more?: Never true Within the past 12 months, did you worry whether your food would run out before you got money to buy more?: Never true Do you have trouble paying for medicines?: No Do you have trouble getting transportation to medical appointments?: No Do you have trouble paying your heating and electricity bill?: No Do you have trouble taking care of your child, family member or friend?: No Do you have trouble with day-to-day activities such as bathing, preparing meals, shopping, managing finances, etc.?: No Are you currently unemployed and looking for a job?: No Are you interested in more education?: No Please select the resources that you would like help with: None Currently or been in a relationship where the following occur: No concerns reported THRIVE Score: 0 AUDIT C Alcohol Use Questionnaire (AUDIT-C) 1. How often do you have a drink containing alcohol?: Monthly or less 2. How many drinks containing alcohol do you have on a typical day when you are drinking?: 1 or 2 3. How often do you have six or more drinks on one occasion?: Never Total Score: 1 ARLENE-7 AMB Questionnaire ARLENE-7 Date ARLENE - 7 assessed: 10/06/24 Feeling nervous, anxious, or on edge: 0 = Not at all Not being able to stop or control worryin = Not at all Worrying too much about different things: 0 = Not at all Trouble relaxin = Not at all Being so restless that it is hard to sit still: 0 = Not at all Becoming easily annoyed or irritable: 0 = Not at all Feeling afraid as if something awful might happen: 0 = Not at all Total ARLENE-7 score (0-4 normal; 5-9 mild; 10-14 moderate; 15-21 severe): 0 Source: Developed by Drs. Joseluis Chew, Tameka Lane, Jose J Josue and colleagues, with an educational ligia from [employer]. ARLENE-7 Assessment Billing ARLENE-7 Assessment Tool: ARLENE-7 Assessment 91617 Review of Systems Const Denies body aches, Denies chills, Denies excessive sweating, Denies fatigue, Denies fever(s) and Denies headache(s) Eyes Denies blurry vision ENT Denies dysphagia, Denies vertigo, Denies dizziness, Denies headache(s), Denies hearing loss and Denies tinnitus Card Denies chest pain, Denies chest pain with activity, Denies syncope, Denies irregular heart rhythm and Denies dyspnea Resp Denies chest congestion, Denies cough, Denies hemoptysis, Denies dyspnea and Denies wheezing GI Denies abdominal pain, Denies melena, Denies hematochezia, Denies coffee ground emesis, Denies dysphagia, Denies diarrhea, Denies nausea and Denies vomiting Denies urinary frequency, Denies dysuria, Denies urinary hesitancy and Denies urinary urgency Musc Denies arthralgias, Denies limited range of motion, Denies muscle cramps and Denies muscle weakness Skin/Breast Denies rash and Denies skin ulcer Neuro Denies Abnormal speech present, Denies confusion, Denies vertigo, Denies dizziness, Denies syncope, Denies headache(s), Denies memory loss and Denies seizure-like activity Psych Denies anxiety, Denies confusion, Denies depression, Denies memory loss, Denies panic attacks and Denies paranoia Endo Denies excessive sweating, Denies fatigue, Denies flushing, Denies polydipsia and Denies polyuria Aller/Immun Denies wheezing Physical exam (Primary Care) Vital Signs: Last Vital Signs Pulse 66 10/06/24 08:11 BP 102/52 L 10/06/24 08:11 Pulse Ox 98 10/06/24 08:11 Oxygen Delivery Method Room Air 10/06/24 08:11 BMI result Body Mass Index 32.4 Tobacco/Smoking Status: Tobacco use Status Tobacco use date assessed 10/06/24 10/06/24 08:16 Patient Tobacco Use Status Never used Tobacco 10/06/24 08:22 Tobacco use type Cigarette 10/06/24 08:22 e-Cigarette/Vaping Use Never Used 10/06/24 08:22 PHQ-9: PHQ-9 Score PHQ-9: Total score 7 10/06/24 08:16 Depression Screening Interpretation: Positive Depression Screening Follow-up: Existing condition and In treatment Thrive Assessment: Date of Thrive Assessment Date Thrive assessed 10/06/24 10/06/24 08:16 Currently or been in a relationship where the following occur: No concerns reported Const General: cooperative, comfortable, no acute distress, alert and awake; No confusion Orientation/consciousness: oriented to person, oriented to place, patient oriented x3 and No confusion HENMT Head: Yes normocephalic Ears: external ears normal and TM's normal bilaterally Face and sinus: No sinus tenderness Mouth: Normal oral and palatal mucosa present and tongue normal Teeth and gingiva: dentition normal and gingiva normal Throat: Yes posterior oropharynx normal, Yes tonsils normal and Yes uvula midline Eyes Conjunctivae: conjunctivae normal Sclerae: sclerae normal Pupils: Equal, round and reactive pupils present EOM: EOMs intact bilaterally Direct Ophthalmoscopy: No no photophobia Neck Neck: Yes no lymphadenopathy, No tender and Yes no JVD Thyroid: Thyroid normal Carotids: no bruits Chest Chest palpation & inspection: no tenderness Resp Effort & Inspection: normal respiratory effort, no audible wheezes, not labored and no stridor Auscultation: no crackles, no rales, no rhonchi and no wheezes Cardio Jugular venous distension: no JVD Rate: regular rate, not bradycardic and not tachycardic Rhythm: regular rhythm Bruits: no carotid bruits Peripheral pulses: Peripheral pulses 2+ throughout GI Inspection: Yes normal to inspection, No abdominal wall ecchymosis and No visible herniation Palpation (GI): Soft to palpation, nontender, no guarding, not rigid and No hepatosplenomegaly present Auscultation: normoactive bowel sounds General: Yes no CVA tenderness Back/Spine/Pelvis Back: no CVA tenderness and No back tenderness Cervical Spine: cervical ROM normal Thoracic/Lumbar Spine: thoracic and lumbar spine normal to inspection, straight leg raise negative bilaterally, No thoraco-lumbar ROM limited and No lumbar spinal tenderness Skin Lesions: no lesions Rashes: no rashes Wounds: no wounds Neuro General: oriented to person, oriented to place, patient oriented x3, CN's II-XI intact bilaterally and No confusion Cranial nerves: Yes Equal, round and reactive pupils present and Yes Normal accommodation reflex present Cognition (Neuro): normal cognition Speech: No Abnormal speech present Gait exam (Neuro): Normal gait present Motor exam (neuro): 5/5 motor strength present throughout Extrem Right upper extremity: full ROM; no cyanosis Left upper extremity: full ROM; no cyanosis Right lower extremity: no edema Left lower extremity: no edema Psych Appearance: grossly normal Mental Status: mental status grossly normal Affect: normal affect Attitude: cooperative Thought process: Normal thought process present Coding Level of Care Code Est Pt Prev Care 40-64y(60713) Diagnoses Annual physical exam Z00.00 Class 1 obesity E66.811 MDD (major depressive disorder), recurrent episode, moderate F33.1 Borderline high cholesterol E78.9 GEORGES (obstructive sleep apnea) G47.33 Screening for diabetes mellitus (DM) Z13.1 Additional Codes PHQ-9 - 51201 - PHQ-9 Billing: Yes ([id number]) ARLENE-7 Assessment Billing - ARLENE-7 Assessment Tool: ARLENE-7 Assessment [id number] ([id number]) Assessment & Plan Assessment & Plan (1) Annual physical exam: Code(s): Z00.00 - Encounter for general adult medical examination without abnormal findings Category: Medical Plan: As per HPI (2) Class 1 obesity: Code(s): E66.811 - Obesity, class 1 Category: Medical Plan: Patient does understand her BMI is over 30 will work on being more physically active and adapting to better eating habits to reduce her weight. She is interested in starting a GLP 1 to help her lose weight as she has struggled over the last few years to lose weight. Summer for weight gain likely related to mental health medications in some of her inability to be more physically active secondary to her chronic pain. She also does have history of obstructive sleep apnea though was not using CPAP machine. Her obstructive sleep apnea symptoms likely will get better with weight reduction. (3) MDD (major depressive disorder), recurrent episode, moderate: Code(s): F33.1 - Major depressive disorder, recurrent, moderate Category: Medical Plan: Patient continues to follow psychiatry who manages her mental health medication. She feels her mental health is well managed with current medication doses. (4) Borderline high cholesterol: Code(s): E78.9 - Disorder of lipoprotein metabolism, unspecified Category: Medical Plan: Patient has a history of borderline high total cholesterol. She will work weight reduction and better eating habits to reduce her cholesterol. Will continue to follow fasting lipid panel. (5) GEORGES (obstructive sleep apnea): Comment: Had been treated with CPAP in the past but has not used recently because of change in insurance and not having supplies Code(s): G47.33 - Obstructive sleep apnea (adult) (pediatric) Category: Medical Plan: As above (6) Screening for diabetes mellitus (DM): Code(s): Z13.1 - Encounter for screening for diabetes mellitus Category: Medical Plan: As per HPI Medications: New tirzepatide (weight loss) (Zepbound) for 4 weeks 2.5 mg (0.5 mL) subcut QWEEK 2 mL 0RF 4 weeks E66.811 - Obesity, class 1, E78.9 - Disorder of lipoprotein metabolism, unspecified, G47.33 - Obstructive sleep apnea (adult) (pediatric) Refilled cholecalciferol (vitamin D3) 50 mcg PO DAILY 90 caps 1RF 90 days E55.9 - Vitamin D deficiency, unspecified, F33.1 - Major depressive disorder, recurrent, moderate
== END 2024-10-06 08:36 | disposition home or self-care (01) ==
PROVIDERS: PCP Physician Assistant; Visit Provider Physician Assistant
DX: Z00.00 Encounter for general adult medical examination without abnormal findings (principal); E66.811 Obesity, class 1; F33.1 Major depressive disorder, recurrent, moderate; Z68.32 Body mass index [BMI] 32.0-32.9, adult; E78.9 Disorder of lipoprotein metabolism, unspecified; G47.33 Obstructive sleep apnea (adult) (pediatric); Z13.1 Encounter for screening for diabetes mellitus

== ENCOUNTER 2024-10-06 08:07 | Outpatient (REF) | payer OTHER, SELFPAY ==
[2024-10-06 14:06] LABS: Syphilis Screen Nonreactive (Nonreactive)
[2024-10-06 15:08] LABS: HBsAGNum1 0.44 S/CO (0.00-0.99); HIV AB/AG Nonreactive (Nonreactive); HIV Num 1 0.06 S/CO (0.00-0.99); Hepatitis B Surface Antigen Negative (Negative); ~HepC Num1 0.15 S/CO (0.00-0.79); ~Hepatitis C Antibody Nonreactive (Nonreactive)
== END 2024-10-06 08:08 | disposition home or self-care (01) ==
LOC: HO.LAB 08:07
PROVIDERS: Absent Provider Obstetrics & Gynecology; PCP Physician Assistant; Visit Provider Physician Assistant
DX: Z00.00 Encounter for general adult medical examination without abnormal findings (principal); E66.811 Obesity, class 1; F33.1 Major depressive disorder, recurrent, moderate; E78.9 Disorder of lipoprotein metabolism, unspecified; G47.33 Obstructive sleep apnea (adult) (pediatric); Z20.2 Contact with and (suspected) exposure to infections with a predominantly sexual mode of transmission
CPT/HCPCS: 36415; 86780; 86803; 87340; 87389; 96127

== ENCOUNTER 2024-11-11 13:21 | Outpatient (REF) | payer OTHER, SELFPAY ==
--- NOTE | ~2024-11-11 | XR_ITS ---
CLINICAL HISTORY: M54.2 - Cervicalgia 3 views cervical spine Comparison: 05/05/2023 Findings: Normal alignment. No acute fractures or dislocation. Anterior cervical discectomy and fusion changes at C5-C6 with intact and well-positioned surgical hardware. C4-C5 and C6-C7 degenerative disc change.. Prevertebral soft tissues within normal limits. IMPRESSION: No acute findings. This document has been electronically signed by: Juan M Sheldon MD on 11/11/2024 19:27:39
--- NOTE | ~2024-11-11 | XR_ITS ---
CLINICAL HISTORY: M54.2 - Cervicalgia 3 views thoracic spine Comparison: None Findings: Scoliotic curvature. No acute fractures or dislocation. No significant degenerative change. IMPRESSION: No acute findings. This document has been electronically signed by: Juan M Sheldon MD on 11/11/2024 18:57:59
--- OUTSIDE RECORDS SUMMARY | 2024-11-11 13:35 | XMS_ITS | Encounter Summary ---
Author Organization [facility] Address [address] [place] [address] Care Team Providers Care Daycare Director Name Role Phone Betito Rico Primary Care Provider [phone] Reason for Referral * Pain Management (Routine) - Authorized Specialty Diagnoses / Procedures Referred By Hector bigsg Referred To Contact Pain Medicine Diagnoses Radiculopathy, thoracic region Procedures INJECTION STEROID EPIDURAL TRANSFORAMINAL LEFT Sixto Olmedo DO [address] [address] Referral ID Status Reason Start Date Expiration Date V isits Requested Visits Authorized [id number] Authorized 10/27/2024 10/27/2025 1 1 Reason for Visit * Pain Management (Routine) - Authorized Specialty Diagnoses / Procedures Referred By Hector biggs Referred To Contact Pain Medicine Diagnoses Radiculopathy, thoracic region Procedures INJECTION STEROID EPIDURAL TRANSFORAMINAL LEFT Sixto Olmedo DO [address] [address] Referral ID Status Reason Start Date Expiration Date V isits Requested Visits Authorized [id number] Authorized 10/27/2024 10/27/2025 1 1 Encounter Details Date Type Department Care Team (Latest Contact Info) Description 11/08/2024 12:08 PM EST Hospital Encounter [facility] Pain Management [address] [place] [id number] Sixto Olmedo DO [address] [address] Radiculopathy, thoracic region Social History Tobacco Use Types Packs/Day Years Used Date Smoking Tobacco: Never Smokeless Tobacco: Never Alcohol Use Standard Drinks/Week Comments Yes 0 (1 standard drink = 0.6 oz pur e alcohol) Sex and Gender Information Value Date Recorded Sex Assigned at Female 11/08/2024 12:04 PM EST Gender Identity Female 11/08/2024 12:04 PM EST Sexual Orientation Straight 11/08/2024 12 :04 PM EST Job Start Date Occupation Industry Not on file Not on file Not on file documented as of this encounter Last Filed Vital Signs Vital Sign Reading Time Taken Comments Blood Pressure 103/72 11/08/2024 2:29 PM EST Pulse 53 11/08/2024 2:29 PM EST Temperature 36.9 ??C (98.4 ??F) 11/08/2024 2:05 PM ES T Respiratory Rate 14 11/08/2024 2:29 PM EST Oxygen Saturation 99% 11/08/2024 2:29 PM EST Inhaled Oxygen Concentration - - Weight - - Height - - Body Mass Index - - documented in this encounter H&P Notes * Sixto Olmedo DO - 11/08/2024 1:30 PM EST Please refer to our office notes for complete details of history of present illness and physical examination. They were reviewed. No changes are reported. documented in this encounter Procedure Notes * Lissette Roldan RN - 11/08/2024 1:30 PM EST Johnny carrillo [phone], ride home * Kristy Parra RN - 11/08/2024 1:30 PM EST Tolerating po well Bandaid cdi Discharge instructions reviewed with stated understanding Md at bedside speaking withpatient * Sixto Olmedo DO - 11/08/2024 1:30 PM EST Procedure performed: Left T6 thoracic transforaminal epidural steroid injection Pre-op diagnosis: Thoracic pain/thoracic radiculitis Postop diagnosis: Same Physician: Sixto Olmedo DO Anesthesia: MAC Procedure in detail: After informed consent was obtained patient was brought in the procedure room and placed in the prone position on the procedure table. Skin over thoracic area was prepped and draped in usual sterile manner. Left T6 pedicle was visualized utilizing fluoroscopy. 3.5 inch 22-gauge spinal needle was introduced percutaneously and advanced toward the pedicle at about 6 o'clock position. Once level of neural foramen was reached, as documented on lateral fluoroscopic image, needle placement was verified utilizing 3 cc of Isovue contrast lotion. Total volume of 6 cc containing 3 cc of 1% lidocaine, 20mg of preservative-free dexamethasone and normal saline solution were injected after negative aspiration for blood and cerebrospinal fluid. Patient tolerated procedure very well. Patient was transported to the recovery room. After observation patient was discharged home in stable condition accompanied by family member. Postop instructions were provided. Radiation exposure was documented in the chart. documented in this encounter Plan of Treatment Scheduled Orders Name Type Priority Associated Diagnoses Orde r Schedule INJECTION STEROID EPIDURAL TRANSFORAMINAL LEFT Procedures Routine Radiculopathy, thoracic region Once for 1 Occurrences starting 11/08/2024 until 11/08/2024 documented as of this encounter Procedures Procedure Name Priority Date/Time Associated Diagnosis Comments POC PREGANCY, URINE SCREENING Routine 11/08/2024 12:22 PM EST documented in this encounter Results * POC , urine NO CHARGE screening manually resulted (11/08/2024 12:22 PM EST) HCG, Ur POC Negative Negative POC hCG Int QC Pass? Yes Yes Urine Urine specimen obtained by clean catch procedure / Unknown 11/08/2024 12:22 PM EST Sixto Olmedo DO POINT OF CARE TEST E NTER/EDIT ORDERABLES documented in this encounter Visit Diagnoses Diagnosis Radiculopathy, thoracic region Thoracic or lumbosacral neuritis or radiculitis, unspecified documented in this encounter Administered Medications Inactive Administered Medications - up to 3 most recent administrations Medication Order MAR Action Action Date Dose Rate Site dexAMETHasone (DECADRON) injection As needed, Starting on Thu11/08/24 at 1353, Intraprocedure Given 11/08/2024 1:53 PM EST 20 mg Back iopamidoL (ISOVUE-300) 300 mg iodine /mL (61 %) solution As needed, Starting on Thu11/08/24 at 1354, Intraprocedure Given 11/08/2024 1:54 PM EST 3 mL Back lidocaine (XYLOCAINE) 1 % injection As needed, Starting on Thu11/08/24 at 1354, Intraprocedure Given 11/08/2024 1:54 PM EST 5 mL Back documented in this encounter Discontinued Medications Medication Sig Discontinue Reason Start Date End Da te docusate sodium (COLACE) 100 mg capsule Take 1 Capsule by mouth 2 times daily. 11/08/2024 pregabalin (LYRICA) 300 mg capsule Take 1 Capsule by mouth 2 times daily. 11/08/2024 senna (SENOKOT) 8.6 mg tablet Take 1 Tablet by mouth 2 times daily for 30 days. 11/08/2024 documented as of this encounter Orders Medications Ordered That Aleksandr ht Not Have Been Administered Count Last Ordered Date First Ordered Date lactated Ringer's infusion 1 11/08/2024 sodium chloride 0.9 % flush 10 mL 2 025 Nursing Count Last Ordered Date First Orde red Date MAINTAIN IV ACCESS 1 11/08/2024 IV Count Last Ordered Date First Orde red Date INSERT PERIPHERAL IV 1 11/08/2024 SALINE LOCK IV 1 11/08/2024 Discharge Count Last Ordered Date First Orde red Date DISCHARGE PATIENT 1 11/08/2024 documented in this encounter Care Teams Daycare Director Relationship Specialty Start Date End Date Betito Rico PA [address] [place] [address] PCP - General Physician Launch Engineer 11/08/24 documented as of this encounter
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
--- OUTSIDE RECORDS SUMMARY | 2024-11-11 13:35 | XMS_ITS | Encounter Summary ---
Author Organization [facility] Address [address] [place] [address] Care Team Providers Care Residential Monitor Name Role Phone Betito Rico Primary Care Provider [phone] Encounter Details Date Type Department Care Team (Latest Contact Info) Description 11/08/2024 6:23 AM EST - 11/08/2024 11:59 PM EST Hospital Encounter [facility] Xray [address] [place] [address] Pain Discharge Disposition: Home or Self Care Social History Tobacco Use Types Packs/Day Years [...] on file documented as of this encounter Medications at Time of Discharge Medication Sig Dispensed Refills Start Date End Date acetaminophen (TYLENOL ORAL) Take 2 Tablets by mouth every 6 hours as needed for Pain. amphetamine-dextroamphet amine XR (ADDERALL XR) 10 mg 24 hr capsule Take 1 Capsule by mouth daily. Take one capsule in the afternoon amphetamine-dextroamphet amine XR (ADDERALL XR) 30 mg 24 hr capsule Take 30 mg by mouth every morning. ARIPiprazole (ABILIFY) 2 mg tablet Take 1 Tablet by mouth daily. ARIPiprazole (ABILIFY) 5 mg tablet Take 1 Tablet by mouth daily. cholecalciferol (VITAMIN D-3) 50 mcg (2,000 unit) capsule Take 1 Capsule by mouth daily. clonazePAM (KlonoPIN) 0.5 mg tablet Take 1 Tablet by mouth 2 times daily as needed. diclofenac (VOLTAREN) 1 % topical gel FLUoxetine (PROzac) 40 mg capsule Take 1 Capsule by mouth daily. tiZANidine (ZANAFLEX) 4 mg tablet Take 1 Tablet by mouth every 8 hours as needed for Muscle spasms (may cause sedation). traZODone (DESYREL) 50 mg tablet Take 1 Tablet by mouth at bedtime. documented as of this encounter Discharge Disposition Disposition Code Departure Means Destination Home or Self Care documented in this encounter Plan of Treatment Pending Results Name Type Priority Associated Diagnoses Date /Time XR Fluoro Up To 1 Hour Imaging Routine Pain 11/08/2024 2:04 PM EST Scheduled Orders Name Type Priority Associated Diagnoses Orde r Schedule XR Fluoro Up To 1 Hour Imaging Routine Pain Once for 1 Occurrences starting 11/08/2024 until 11/08/2024 documented as of this encounter Visit Diagnoses Diagnosis Pain Generalized pain documented in this encounter Care Teams Residential Monitor Relationship Specialty Start Date End Date Betito Rico PA [address] [place] [address] PCP - General Physician Bath House Attendant 11/08/24 documented as of this encounter
--- OUTSIDE RECORDS SUMMARY | 2024-11-11 13:35 | XMS_ITS | Encounter Summary ---
Author Organization [facility] Address [address] [place] [address] Care Team Providers Care Cassandra Developer Name Role Phone Betito Rico Primary Care Provider [phone]- [phone] Encounter Details Date Type Department Care Team (Late st Contact Info) Description 11/08/2024 1:46 PM EST Anesthesia Event [facility] [address] [place] [phone] Milton Gross MD [address] [place] [address] Anesthesia Record Procedure Summary Procedure Name Responsible Anesthesiologist Anesthesia Start Time Anesthesia Stop Time INJECTION STEROID EPIDURAL TRANSFORAMINAL LEFT Milton Gorss MD 11/08/24 1346 11/08/24 1402 Events Date Time Event Comment 11/08/2024 1231 1346 An Start 1346 An Start Data The patient wa s reevaluated immediately before moderate or deep sedation use and before anesthesia induction. 1347 In Room 1349 Anesthesia Ready 1350 Proc Start 1356 an stop data 1358 Proc Fin 1400 Out of Room 1402 Handoff to RN I completed my handoff to the receiving nurse during which we: 1. Identified the patient 2. Identified the responsible provider 3. Reviewed the pertinent medical history 4. Discussed the surgical course 5. Reviewed intra-op anesthesia management and issues during anesthesia 6. Set expectations for post-procedure period 7. Allowed opportunity for questions and acknowledgement of understanding. 1402 An Stop Meds Name Total fentaNYL 0.05 mg/mL 150 mcg midazolam 1 mg/mL 2 mg lidocaine PF (XYLOCAINE-MPF) local injec tion 2% 30 mg lactated Ringer's infusion 150 mL * Agents Name O2 N2O Air * Blood No blood administrations on file. Lines, Drains, and Airways Type Details Placement Removal Wound (puncture); Back; Le ft, Medial 11/08/24 1359 by Peripheral IV Placement Date: 10/13 06/05; Placement Time: 1233; Catheter Size: 20 G; Orientation: Posterior, Right; Location: Hand; Site Prep: Chlorhexidine; Inserted by: cb; Insertion Attempts: 1; Patient Tolerance: Tolerated well; Removal Date: 11/08/24; Removal Time: 1410 11/08/24 1233 by Lissette Roldan RN 11/08/24 1410 by Kristy Parra RN documented in this encounter Social History Tobacco Use Types Packs/Day Years [...] on file documented as of this encounter Progress Notes * Jeff Askew CRNA - 11/08/2024 2:02 PM EST Patient: Deb Malcolm Procedure Summary Date: 11/08/24 Room / Location: [facility] Anesthesia Start: 1346 Anesthesia Stop: 1402 Procedure: INJECTION STEROID EPIDURAL TRANSFORAMINAL LEFT Diagnosis: Radiculopathy, thoracic region Scheduled Providers: Sixto Olmedo DO Responsible Provider: Milton Gross MD Anesthesia Type: MAC ASA Status: 2 Anesthesia Plan: MAC Visit Vitals BP 112/71 Pulse 62 Temp 36.8 ??C (98.2 ??F) Resp 16 SpO2 99% OB Status Having periods Smoking Status Never No data recorded Anesthesia Post Evaluation Patient location during evaluation: PACU Patient participation: complete - patient participated Level of consciousness: awake and alert Pain score: 0 Pain management: adequate Airway patency: patent Anesthetic complications: no Cardiovascular status: acceptable Respiratory status: acceptable Hydration status: acceptable Nausea: No Vomiting: No There were no known notable events for this encounter. * Milton Gross MD - 11/08/2024 12:30 PM EST Relevant Problems No relevant active problems Clinical information reviewed: Tobacco Allergies Meds Med Hx Surg Hx OB Status Fam Hx Soc Hx Anesthesia Plan ASA 2 Anesthesia Plan: MAC Anesthesia Risks Discussed serious complications Anesthetic plan and risks discussed with patient. Anesthesia Evaluation No history of anesthetic complications Airway Mallampati: II Dental - normal exam Pulmonary - normal exam (-) COPD, asthma, sleep apnea Cardiovascular Exercise tolerance: good (-) past MN, dysrhythmias Rhythm: regular Rate: normal Neuro/Psych (+) psychiatric history (-) seizures, CVA Comments: Normal ROM in c-spine, s/p cervical fusions GI/Hepatic/Renal (-) GERD, liver disease, renal disease Endo/Other (-) diabetes mellitus Comments: MJ Abdominal (+) obese PONV RISK SCORE: 2 Vitals: 11/08/24 1219 BP: 112/71 Pulse: 62 Resp: 16 Temp: 36.8 ??C (98.2 ??F) SpO2: 99% SpO2 Readings from Last 1 Encounters: 11/08/24 99% No results found for: WBC , RBC , HGB , HCT , PLT , MCV Allergies Allergen Reactions Erythromycin GI intolerance Pancreatitis, acute Ibuprofen Diarrhea Other Adhesive Tape [Tape] Penicillins Hives STOP BANG: No data recorded NPO Status: Time of Last Solid: 1999 documented in this encounter Plan of Treatment Not on file documented as of this encounter Visit Diagnoses Not on filedocumented in this encounter Administered Medications Active Administered Medications - up to 3 most recent administrations Medication Order MAR Action Action Date Dose Rate Site lactated Ringer's infusion 100 mL/hr, intravenous, Continuous, Starting on Thu11/08/24 at 1300, Preprocedure New Bag 11/08/2024 1:48 PM EST Inactive Administered Medications - up to 3 most recent administrations Medication Order MAR Action Action Date Dose Rate Site fentaNYL (PF) (SUBLIMAZE) injection intravenous, As needed, Starting on Thu11/08/24 at 1349, Anesthesia Intraprocedure Given 11/08/2024 1:55 PM EST 50 mcg Given 11/08/2024 1:52 PM EST 50 mcg Given 11/08/2024 1:49 PM EST 50 mcg lidocaine (PF) (XYLOCAINE-MPF) 2 % injection injection, As needed, Starting on Thu11/08/24 at 1349, Anesthesia Intraprocedure Given 11/08/2024 1:49 PM EST 30 mg midazolam (VERSED) injection intravenous, As needed, Starting on Thu11/08/24 at 1348, Anesthesia Intraprocedure Given 11/08/2024 1:48 PM EST 2 mg documented in this encounter Care Teams Cassandra Developer Relationship Specialty Start Date End Date Betito Rico PA [address] [place] [address] PCP - General Physician Mechanical Manufacturing Engineer 11/08/24 documented as of this encounter
[2024-11-11 14:03] LABS: Hematocrit 40.1 % (37.0-47.0); Hemoglobin 12.9 g/dl (12.0-16.0); Mean Corpuscular HGB Conc 32.2 g/dl (31.0-35.0); Mean Corpuscular Hemoglobin 28.6 pg (27.0-33.0); Mean Corpuscular Volume 88.9 fL (80.0-98.0); Mean Platelet Volume 9.3 fL (9.4-12.3); Platelet Count 360 X10*3/uL (160-400); Red Blood Count 4.51 X10*6/uL (4.20-5.50); Red Cell Distribution Width 14.4 % (11.0-16.0); White Blood Count 10.1 X10*3/uL (4.8-10.8)
[2024-11-11 14:36] LABS: Alanine Aminotransferase 31 U/L (0-31); Alkaline Phosphatase 67 U/L (39-117); Anion Gap 13 (12-20); Aspartate Amino Transferase 18 U/L (5-31); Bilirubin Total 0.3 mg/dL (0.0-1.0); Blood Urea Nitrogen 21 mg/dL (9-16); Carbon Dioxide 29 mmol/L (22-29); Chloride 103 mmol/L (96-108); Cholesterol 171 mg/dL (<200); Estimated Glomerular Filt Rate > 60; Glucose Fasting 82 mg/dL (60-99); HDL Cholesterol 48 mg/dL (>40); LDL Cholesterol Calculated 109 mg/dL (<100); Potassium 4.3 mmol/L (3.3-5.1); Sodium 141 mmol/L (135-145); Total Protein 7.8 g/dL (6.5-8.0); Triglycerides 74 mg/dL (<150)
== END 2024-11-11 13:22 | disposition home or self-care (01) ==
LOC: HO.LAB 13:21
PROVIDERS: PCP Physician Assistant; Visit Provider Physician Assistant
DX: M54.2 Cervicalgia (principal); M54.6 Pain in thoracic spine; E78.9 Disorder of lipoprotein metabolism, unspecified
CPT/HCPCS: 36415; 72040; 72072; 80053; 80061; 85027

== ENCOUNTER → 2024-11-11 13:37 | Outpatient (BNV) | payer OTHER, SELFPAY | PROVIDERS: PCP Physician Assistant; Visit Provider Specialist | DX: M54.2 Cervicalgia (principal) | CPT/HCPCS: 72040; 72072 ==

== ENCOUNTER 2024-12-04 08:05 | Inpatient (IN) | payer OTHER, MEDICARE, SELFPAY ==
[2024-12-04 08:16] VITALS: BP 93/62; PULSE 67; RESP 14; TEMP 36.8; O2SAT 98; BMI 31.1
[2024-12-04 08:30] LABS: MANUAL DIFF FLAG NO
[2024-12-04 08:31] LABS: Basophils Percent Auto 0.4 % (0-2); Eosinophils Absolute Auto 0.2 X10*3/uL (0.0-0.4); Eosinophils Percent Auto 2.9 % (0-4); Hematocrit 38.3 % (37.0-47.0); Hemoglobin 12.4 g/dl (12.0-16.0); Imm Gran Abs Auto 0.03 X10*3/uL (0.00-0.03); Imm Gran Pct Auto 0.4 % (0.0-0.4); Lymphocytes Absolute Auto 2.7 X10*3/uL (1.2-4.9); Lymphocytes Percent Auto 35.6 % (20-40); Mean Corpuscular HGB Conc 32.4 g/dl (31.0-35.0); Mean Corpuscular Hemoglobin 28.6 pg (27.0-33.0); Mean Corpuscular Volume 88.5 fL (80.0-98.0); Mean Platelet Volume 9.2 fL (9.4-12.3); Monocytes Absolute Auto 0.7 X10*3/uL (0.1-1.2); Monocytes Percent Auto 9.1 % (2-11); Neutrophils Absolute Auto 3.9 x10*3/uL (2.0-8.3); Neutrophils Percent Auto 51.6 % (45-73); Platelet Count 300 X10*3/uL (160-400); Red Blood Count 4.33 X10*6/uL (4.20-5.50); Red Cell Distribution Width 14.1 % (11.0-16.0); White Blood Count 7.6 X10*3/uL (4.8-10.8)
--- NOTE | 2024-12-04 08:34 | ED.GENADULT ---
HPI - General Adult General Chief complaint: Psychiatric Symptoms Stated complaint: crisis Time Seen by Provider: 12/04/24 08:30 Source: patient Mode of arrival: ambulatory Limitations: no limitations History of Present Illness ED Provider: Amparo Marin PA-C HPI narrative: Patient is a 49 year old assigned female at with a history of fibromyalgia, MDD, EDS, and treatment resistant depression presenting to the emergency department today with SI. Patient states that she has had a recent change in medication and is now feeling suicidal and more depressed. Patient denies any dizziness, lightheadedness, abdominal pain, nausea, vomiting, fever, chills, blurry vision, double vision, loss of vision, chest pain, difficulty breathing, shortness of breath, back pain, night sweats, pain with urination, increased urinary frequency, increased urinary urgency, blood in her urine or stool, syncope or a near syncopal episode, recent trauma or falls, bowel incontinence, bladder incontinence, or any other complaints at this time. Relieving factors: none Exacerbating factors: none Associated symptoms: denies other symptoms Treatments prior to arrival: none Related Data Home Medications ?Medication ?Instructions ?Recorded ?Confirmed dextroamphetamine-amphetamine ER 1 cap PO DAILY@0800 07/23/23 12/04/24 30 mg 24hr capsule,extend release clonazepam 0.5 mg tablet 0.5 mg PO BID PRN Anxiety 12/04/24 12/04/24 lurasidone 20 mg tablet 20 mg PO BEDTIME 12/04/24 12/04/24 tizanidine 4 mg tablet 4 mg PO TID PRN muscle spasm 12/04/24 12/04/24 trazodone 50 mg tablet 100 mg PO BEDTIME Insomnia 12/04/24 12/04/24 Previous Rx's ?Medication ?Instructions ?Recorded fluoxetine 20 mg capsule 60 mg (3 x 20 mg) PO DAILY 30 days 07/30/23 #90 caps valacyclovir 500 mg tablet 500 mg PO DAILY 90 days #90 tabs 08/29/24 Allergies Allergy/AdvReac Type Severity Reaction Status Date / Time erythromycin base Allergy Severe PANCREATITI Verified 12/04/24 08:20 [ERYTHROMYCIN BASE] S Penicillins [PCN] Allergy Severe HIVES Verified 12/04/24 08:20 Review of Systems Constitutional: Constitutional: Reports no additional constitutional complaints, Denies chills, Denies fever(s) and Denies night sweats Eyes: Eyes: Reports no additional eye complaints, Denies blurry vision, Denies change in vision, Denies diplopia, Denies eye discharge, Denies loss of vision and Denies eye pain ENT: Denies dizziness Cardiovascular: Cardiovascular: Reports no additional cardiovascular complaints, Denies chest pain, Denies lightheadedness, Denies Loss of Consciousness and Denies dyspnea Respiratory: Respiratory: Reports no additional respiratory complaints and Denies dyspnea Gastrointestinal: Gastrointestinal: Reports no additional gastrointestinal complaints, Denies abdominal pain, Denies melena, Denies hematochezia, Denies change in bowel habits and Denies change in stool character Genitourinary: Genitourinary: Denies hematuria, Denies urinary frequency, Denies dysuria, Denies urinary incontinence, Denies urinary hesitancy and Denies urinary urgency Musculoskeletal: Musculoskeletal: Reports no additional musculoskeletal complaints, Denies numbness and Denies tingling Neurologic: Denies dizziness, Denies loss of vision, Denies numbness and Denies tingling Psychiatric: Psychiatric: Reports depression, Denies homicidal ideation and Reports suicidal ideation Endocrine: Endocrine: Reports no additional endocrine complaints Hematologic/Lymphatic: Hematologic/Lymphatic: Reports no additional hematologic/lymphatic complaints Allergic/Immunologic: Allergic/Immunologic: Reports no additional allergic/immunologic complaints [facility] Past Medical History Attestation statement: The following information was validated with the patient. Source: old records reviewed and nursing notes reviewed Medical History Osteoarthritis Depression GERD (gastroesophageal reflux disease) Atypical chest pain GEORGES (obstructive sleep apnea) On anticoagulant therapy Menorrhagia Pulmonary embolism Syncope and collapse Subchondral sclerosis EDS (Juan-Danlos syndrome) Surgical History Hx of colonoscopy Hx of hand surgery History of endometrial ablation H/O bilateral breast reduction surgery Hx of section History of back surgery H/O knee surgery H/O shoulder surgery (~02/2019) Family History Family History Paternal Aunt Breast cancer Father Diabetes High cholesterol HTN (hypertension) Maternal Uncle Stroke Maternal Grandfather Emphysema lung Lung cancer Maternal Grandmother Asthma Son Asthma Social History Social History Household Members: None Housing: House Do you presently have visiting nurse or other home services: Yes (home health aid for housekeeping) Alcohol intake: never Comment: stated was minimal Patient Tobacco Use Status: Never used Tobacco Tobacco use type: Cigarette Smoked in Last 30 Days: No e-Cigarette/Vaping Use: Never Used Second Hand Smoke Exposure: No Use of substances other than those prescribed or required for medical reasons: Yes Substance Use Type: Marijuana Advance Directives: Yes Advance Directives on File: Yes Advance Directives Date on File: 08/31/20 Patient : No service: No Current occupational status: employed Current occupation: [employer] Sexual 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/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 Gender identity: Female Cognitive needs: No Hearing needs: No Vision needs: No Physical Exam ED Vital Signs: Vital Signs - 24 hr 12/04/24 08:16 12/04/24 11:26 12/04/24 14:13 Temperature 98.3 F 98.1 F Pulse Rate 67 74 55 Respiratory Rate 14 14 16 Blood Pressure 93/62 86/43 L 98/52 L Pulse Oximetry 98 99 97 Oxygen Delivery Method Room Air Room Air Room Air BMI result Body Mass Index 31.1 Const General: cooperative, no acute distress, alert and awake Nutritional Appearance: well nourished Orientation/consciousness: patient oriented x3 Limitations: no limitations HENMT Head: Yes normal to inspection and Yes atraumatic Ears: hearing grossly normal bilaterally and external ears normal General nose exam: Normal external nose present, no nasal discharge noted and no epistaxis Face and sinus: Yes normal facial exam, No abrasion and No laceration Mouth: Normal oral and palatal mucosa present, no drooling and no muffled voice Eyes General: appearance normal, both eyes and all related structures Periorbital: periorbital findings normal Eyelids: Yes eyelids normal Conjunctivae: conjunctivae normal Pupils: Equal, round and reactive pupils present EOM: EOMs intact bilaterally Neck Neck: Yes normal visual inspection, Yes full ROM and Yes no lymphadenopathy Chest Chest palpation & inspection: normal inspection of the chest Resp Effort & Inspection: normal respiratory effort and able to speak in complete sentences GI Inspection: Yes normal to inspection Neuro General: patient oriented x3, moves all extremities and CN's II-XI intact bilaterally Cranial nerves: Yes Equal, round and reactive pupils present Cognition (Neuro): normal cognition Extrem General: Yes normal to inspection, Yes full ROM and Yes capillary refill normal Psych Appearance: grossly normal Mental Status: mental status grossly normal Affect: Sad affect present Attitude: Guarded attititude/behavior present Thought content: Suicidality present Course Reevaluation(s) Reevaluation #1: Patient remained stable hemodynamically no event reported here for SI remain psychiatric inpatient level of care Time: 07:05 Medications Administered Generic Name Dose Route Start Last Admin Trade Name Freq PRN Reason Stop Dose Admin Clonazepam 0.5 mg 12/04/24 17:25 12/04/24 19:15 Clonazepam 0.5 Mg Tablet PO 0.5 mg BID PRN Administration Anxiety Lurasidone HCl 20 mg 12/04/24 21:00 12/04/24 20:05 Lurasidone Hcl 20 Mg Tablet PO 20 mg BEDTIME VERONICA Administration Tizanidine HCl 4 mg 12/04/24 17:25 12/05/24 04:32 Tizanidine Hcl 4 Mg Tablet PO 4 mg TID PRN Administration muscle spasm Trazodone HCl 100 mg 12/04/24 21:00 12/04/24 20:05 Trazodone Hcl 100 Mg Tablet PO 100 mg BEDTIME VERONICA Administration Discontinued Medications Generic Name Dose Route Start Last Admin Trade Name Freq PRN Reason Stop Dose Admin Ibuprofen 600 mg 12/04/24 18:45 12/04/24 18:50 Ibuprofen 600 Mg Tablet PO 12/04/24 18:46 600 mg ONCE ONE Administration Medical Decision Making Medical Decision Making [facility] Narrative: Patient is a 49 year old assigned female at with a history of fibromyalgia, MDD, EDS, and treatment resistant depression presenting to the emergency department today with SI. Patient's physical exam was as noted in the physical exam portion of this note. Patient's blood work was unremarkable. Patient's urine showed a possible UTI but the patient has no symptoms consistent with UTI - will await culture before treating. I explained my physical exam findings as well as all test results to the patient. I answered all questions asked by the patient. Patient is awaiting CARE team evaluation. Differential Diagnosis Differential Diagnoses: The differential diagnosis associated with the presentation includes SI Depression Admission/Observation Consideration of admission/observation: Escalation of care including admission/observation considered Patient's disposition will be determined after CARE team evaluation. Lab Data [facility] Lab Attestation statement: I reviewed the patient's lab results. My interpretation of these results are in the MDM Rationale portion of this note. 12/04/24 08:27 12/04/24 08:27 Labs: Lab Results 12/04/24 12/04/24 Range/Units 08:27 09:52 WBC 7.6 (4.8-10.8) X10*3/uL RBC 4.33 (4.20-5.50) X10*6/uL Hgb 12.4 (12.0-16.0) g/dl Hct 38.3 (37.0-47.0) % MCV 88.5 (80.0-98.0) fL MCH 28.6 (27.0-33.0) pg MCHC 32.4 (31.0-35.0) g/dl RDW 14.1 (11.0-16.0) % Plt Count 300 (160-400) X10*3/uL MPV 9.2 L (9.4-12.3) fL Immature Gran % (Auto) 0.4 (0.0-0.4) % Neut % (Auto) 51.6 (45-73) % Lymph % (Auto) 35.6 (20-40) % Tillman % (Auto) 9.1 (2-11) % Eos % (Auto) 2.9 (0-4) % Baso % (Auto) 0.4 (0-2) % Lymph # (Auto) 2.7 (1.2-4.9) X10*3/uL Tillman # (Auto) 0.7 (0.1-1.2) X10*3/uL Eos # (Auto) 0.2 (0.0-0.4) X10*3/uL Baso # (Auto) 0.0 (0.0-0.2) X10*3/uL Abs Immat Gran (auto) 0.03 (0.00-0.03) X10*3/uL Absolute Neuts (auto) 3.9 (2.0-8.3) x10*3/uL Absolute Nucleated RBC 0.000 (0.0-0.012) X10*3/uL Nucleated RBC % (auto) 0.0 (0.0-0.2) /100WBC Sodium 141 (135-145) mmol/L Potassium 4.3 (3.3-5.1) mmol/L Chloride 109 H (96-108) mmol/L Carbon Dioxide 24 (22-29) mmol/L Anion Gap 12 (12-20) BUN 12 (9-16) mg/dL Creatinine 0.97 (0.5-1.4) mg/dL Estim Creat Clear Calc 71.7 Estimated GFR > 60 Random Glucose 102 (60-115) mg/dL Calcium 8.6 (8.4-10.2) mg/dL Total Bilirubin 0.4 (0.0-1.0) mg/dL AST 22 (5-31) U/L ALT 18 (0-31) U/L Alkaline Phosphatase 73 (39-117) U/L Total Protein 7.4 (6.5-8.0) g/dL Albumin 3.7 (3.5-5.0) g/dL Urine Color Yellow Urine Appearance Cloudy Urine pH 5.5 (5.0-9.0) Ur Specific [place] 1.025 (1.005-1.025) Urine Protein Negative (Neg-Trace) mg/dL Urine Glucose (UA) Negative (Negative) mg/dL Urine Ketones Negative (Negative) mg/dL Urine Blood Negative (Negative) Urine Nitrite Negative (Negative) Ur Leukocyte Esterase Moderate (2+) H (Negative) Urine RBC 0-2 (0-2) /HPF Urine WBC 11-20 (0-5) /HPF Ur Squamous Epith Cells 11-20 (0-2) /HPF Urine Bacteria 3+ (None Seen) Hyaline Casts 0-2 (0-2) /LPF Salicylates < 5.0 L (15-30) mg/dL Urine Opiates Screen POSITIVE H (Not Detect) Ur Buprenorphine Scrn Not Detected (Not Detect) ng/mL Ur Oxycodone Screen Positive H (Not Detect) ng/mL Urine Methadone Screen Not Detected (Not Detect) ng/mL Urine Fentanyl Screen Not Detected (Not Detect) Acetaminophen < 3 (<30) mcg/mL Ur Barbiturates Screen Not Detected (Not Detect) Ur Phencyclidine Scrn Not Detected (Not Detect) Ur Amphetamines Screen POSITIVE H (Not Detect) U Benzodiazepines Scrn Not Detected (Not Detect) Urine Cocaine Screen Not Detected (Not Detect) U Marijuana (THC) Screen POSITIVE H (Not Detect) Ethyl Alcohol < 10 mg/dL Discharge Plan Discharge Clinical Impression: Depression, Feeling suicidal Patient Disposition: Still a Patient Prescriptions: No Action dextroamphetamine-amphetamine 30 mg capsule,extended release 24hr 1 cap PO DAILY@0800 fluoxetine 20 mg Capsule 60 mg PO DAILY 30 Days Qty: 90 0RF trazodone 50 mg tablet 100 mg PO BEDTIME clonazepam 0.5 mg tablet 0.5 mg PO BID PRN (Reason: Anxiety) lurasidone 20 mg tablet 20 mg PO BEDTIME tizanidine 4 mg tablet 4 mg PO TID PRN (Reason: muscle spasm) valacyclovir 500 mg tablet 500 mg PO DAILY 90 Days Qty: 90 3RF Interventions: Loving-Suicide Risk Severity Scale Last Done: 12/04/24 11:49 Print Language: [place] Citizen
[2024-12-04 08:50] LABS: Acetaminophen LAB < 3 mcg/mL (<30); Salicylate < 5.0 mg/dL (15-30)
[2024-12-04 08:51] LABS: Alanine Aminotransferase 18 U/L (0-31); Albumin Level 3.7 g/dL (3.5-5.0); Alkaline Phosphatase 73 U/L (39-117); Anion Gap 12 (12-20); Aspartate Amino Transferase 22 U/L (5-31); Bilirubin Total 0.4 mg/dL (0.0-1.0); Blood Urea Nitrogen 12 mg/dL (9-16); Calcium 8.6 mg/dL (8.4-10.2); Carbon Dioxide 24 mmol/L (22-29); Chloride 109 mmol/L (96-108); Creatinine Clr Calc Pharmacy 71.7; Estimated Glomerular Filt Rate > 60; Ethanol < 10 mg/dL; Glucose Random 102 mg/dL (60-115); Potassium 4.3 mmol/L (3.3-5.1); Sodium 141 mmol/L (135-145); Total Protein 7.4 g/dL (6.5-8.0)
--- OUTSIDE RECORDS SUMMARY | 2024-12-04 09:32 | XMS_ITS | Encounter Summary ---
Author Organization [facility] Address [address] [place] [address] Care Team Providers Care Soaker Helper Name Role Phone Betito Rico Primary Care Provider [phone] Reason for Referral * Imaging (Routine) - Pending Review Specialty Diagnoses / Procedures Referred By Deedeeac dian Referred To Contact Radiology Diagnoses Radiculopathy Procedures MR Cervical Spine wo Contrast Sixto Olmedo DO [address] [address] Phone: tel: fax: [facility] Referral ID Status Reason Start Date Expiration Date V isits Requested Visits Authorized [id number] Pending Review 11/28/2024 11/28/2025 1 1 Reason for Visit * Imaging (Routine) - Pending Review Specialty Diagnoses / Procedures Referred By Hector biggs Referred To Contact Radiology Diagnoses Radiculopathy Procedures MR Cervical Spine wo Contrast Sixto Olmedo DO [address] [address] Phone: tel: fax: [facility] Referral ID Status Reason Start Date Expiration Date V isits Requested Visits Authorized [id number] Pending Review 11/28/2024 11/28/2025 1 1 Encounter Details Date Type Department Care Team (Latest Contact Info) Description 11/30/2024 6:17 PM EST - 11/30/2024 11:59 PM EST Hospital Encounter MRI [address] [place] [id number] Radiculopathy Discharge Disposition: Home or Self Care Social History Tobacco Use Types Packs/Day Years Used Date Smoking Tobacco: Never Smokeless Tobacco: Never Alcohol Use Standard Drinks/Week Comments Yes 0 (1 standard drink = 0.6 oz pur e alcohol) Comments No Sex and Gender Information Value Date Recorded Sex Assigned at Female 11/08/2024 12:04 PM EST Legal Sex Female 2:32 PM EST Gender Identity Female 11/08/2024 12:04 PM EST Sexual Orientation Straight 11/08/2024 12 :04 PM EST documented as of this encounter Medications at Time of Discharge acetaminophen (TYLENOL ORAL) Take 2 Tablets by mouth every 6 hours as needed for Pain. amphetamine-dext roamphetamine XR (ADDERALL XR) 10 mg 24 hr capsule Take 1 Capsule by mouth daily. Take one capsule in the afternoon amphetamine-dext roamphetamine XR (ADDERALL XR) 30 mg 24 hr [...] on file documented as of this encounter Procedures Procedure Name Priority Date/Time Associated Diagnosis Comments MR CERVICAL SPINE WO CONTRAST Routine 11/30/2024 6:40 PM EST Radiculopathy documented in this encounter Results * MR Cervical Spine wo Contrast (11/30/2024 6:40 PM EST) Anatomical Region Laterality Modality C-spine, Spine Magnetic Resonan ce 12/01/2024 6:52 PM EST Impressions 12/01/2024 7:18 PM EST Degenerative and postsurgical changes in the cervical spine with severe left and moderate right foraminal stenosis at C4-5. No high-grade spinal canal stenosis, mass effect upon the cord, cord signal abnormality -------- FINAL REPORT -------- Dictated By: PAZ TILLMAN Dictated Date: 12/01/2024 18:52 ET Assigned Physician: PAZ TILLMAN Reviewed and Electronically Signed By: PAZ TILLMAN Signed Date: 12/01/2024 19:18 ET Workstation ID: [id number] Transcribed By: Self Edit Transcribed Date: 12/01/2024 18:52 ET Narrative 12/01/2024 7:18 PM EST PROCEDURE: Cervical spine MRI INDICATION: Pain, radiculopathy TECHNIQUE: Multiplanar, multisequence MRI of the Cervical spine Without contrast. COMPARISON: ??No priors available. FINDINGS: Mild retrolisthesis at C4-5. ??No fracture or suspicious marrow replacing lesion. Anterior discectomy and fusion at C5-6 with complete fusion across the disc space and hardware in place anteriorly. Mild multilevel degenerative loss of normal disc height and signal with associated degenerative endplate spurring, most pronounced at C4-5 and C6-7. Cervical cord is normal in signal and morphology. ??No epidural collection or mass is seen within the spinal canal. Paraspinal muscles are normal. ??Foramen magnum is normal. Findings by level: C2-C3: No focal disc protrusion, foraminal stenosis, or spinal canal stenosis. C3-C4: No focal disc protrusion, foraminal stenosis, or spinal canal stenosis. C4-C5: Posterior disc osteophyte complex with left greater than right uncovertebral spurring resulting in moderate right and severe left foraminal stenosis. ??Mild spinal canal stenosis. C5-C6: Anterior discectomy and fusion. ??No foraminal or spinal canal stenosis. C6-C7: Posterior disc osteophyte complex and bilateral uncovertebral spurring no foraminal or spinal canal stenosis. C7-T1: No focal disc protrusion, foraminal stenosis, or spinal canal stenosis. Procedure Note Paz Tillman MD - 12/01/2024 PROCEDURE: Cervical spine MRI INDICATION: Pain, radiculopathy TECHNIQUE: Multiplanar, multisequence MRI of the Cervical spine Withoutcontrast. COMPARISON: No priors available. FINDINGS: Mild retrolisthesis at C4-5. No fracture or suspicious marrow replacinglesion. Anterior discectomy and fusion at C5-6 with complete fusion across thedisc space and hardware in place anteriorly. Mild multilevel degenerative loss of normal disc height and signal withassociated degenerative endplate spurring, most pronounced at C4-5 andC6-7. Cervical cord is normal in signal and morphology. No epidural collectionor mass is seen within the spinal canal. Paraspinal muscles are normal. Foramen magnum is normal. Findings by level: C2-C3: No focal disc protrusion, foraminal stenosis, or spinal canalstenosis. C3-C4: No focal disc protrusion, foraminal stenosis, or spinal canalstenosis. C4-C5: Posterior disc osteophyte complex with left greater than rightuncovertebral spurring resulting in moderate right and severe leftforaminal stenosis. Mild spinal canal stenosis. C5-C6: Anterior discectomy and fusion. No foraminal or spinal canalstenosis. C6-C7: Posterior disc osteophyte complex and bilateral uncovertebralspurring no foraminal or spinal canal stenosis. C7-T1: No focal disc protrusion, foraminal stenosis, or spinal canalstenosis. IMPRESSION: Degenerative and postsurgical changes in the cervical spine with severeleft and moderate right foraminal stenosis at C4-5. No high-grade spinal canal stenosis, mass effect upon the cord, cordsignal abnormality -------- FINAL REPORT -------- Dictated By: PAZ TILLMAN Dictated Date: 12/01/2024 18:52 ET Assigned Physician: PAZ TILLMAN Reviewed and Electronically Signed By: PAZ TILLMAN Signed Date: 12/01/2024 19:18 ET Workstation ID: [id number] Transcribed By: Self Edit Transcribed Date: 12/01/2024 18:52 ET Sixto Olmedo DO [facility] [place] Final Result documented in this encounter Visit Diagnoses Diagnosis Radiculopathy Unspecified neuralgia, neuritis, and radiculitis documented in this encounter Care Teams Soaker Helper Relationship Specialty Start Date End Date Betito Rico PA PCP - General Physician Radio Tower Technician 11/08/24 documented as of this encounter
--- OUTSIDE RECORDS SUMMARY | 2024-12-04 09:32 | XMS_ITS | Encounter Summary ---
Author Organization [employer] Address [address] [place] [address] Care Team Providers Care Pupil Personnel Services Director Name Role Phone Betito Rico Primary Care Provider Encounter Details Date Type Department Care Team (Late st Contact Info) Description 11/08/2024 1:46 PM EST Anesthesia Event [facility] [address] [place] [phone] Milton Gross MD [address] [place] [address] Anesthesia Record Procedure Summary Procedure Name Responsible Anesthesiologist Anesthesia Start Time Anesthesia Stop Time INJECTION STEROID EPIDURAL TRANSFORAMINAL LEFT Milton Gross MD 11/08/24 1346 11/08/24 1402 Events Date [...] PM EST documented as of this encounter Progress Notes * Jeff Askew CRNA - 11/08/2024 2:02 PM EST Patient: Deb Malcolm Procedure Summary Date: 11/08/24 Room / Location: [facility] Anesthesia Start: 1346 Anesthesia Stop: [...] apnea Cardiovascular Exercise tolerance: good (-) past [place], dysrhythmias Rhythm: regular Rate: normal Neuro/Psych (+) [...] on filedocumented in this encounter Administered Medications Inactive Administered Medications - up to 3 most recent administrations Medication Order MAR Action Action Date Dose Rate Site fentaNYL (PF) (SUBLIMAZE) injection intravenous, As needed, Starting on Thu11/08/24 at 1349, Anesthesia Intraprocedure Given 11/08/2024 1:55 PM EST 50 mcg Given 11/08/2024 1:52 PM EST 50 mcg Given 11/08/2024 1:49 PM EST 50 mcg lactated Ringer's infusion 100 mL/hr, intravenous, Continuous, Starting on Thu11/08/24 at 1300, Preprocedure New Bag 11/08/2024 1:48 PM EST lidocaine (PF) (XYLOCAINE-MPF) 2 % injection injection, As needed, Starting on Thu11/08/24 at 1349, Anesthesia Intraprocedure Given 11/08/2024 1:49 PM EST 3 0 mg midazolam (VERSED) injection intravenous, As needed, Starting on Thu11/08/24 at 1348, Anesthesia Intraprocedure Given 11/08/2024 1:48 PM EST 2 mg documented in this encounter Care Teams Pupil Personnel Services Director Relationship Specialty Start Date End Date Betito Rico PA PCP - General Physician Shelf Filler 11/08/24 documented as of this encounter
--- OUTSIDE RECORDS SUMMARY | 2024-12-04 09:32 | XMS_ITS | Encounter Summary ---
Author Organization [employer] Address [address] [place] [address] Care Team Providers Care Top Collar Maker Name Role Phone Betito Rico Primary Care Provider Encounter Details Date Type Department Care Team (Latest Contact Info) Description 11/08/2024 6:23 AM EST - 11/08/2024 11:59 PM EST Hospital Encounter [facility] [address] [place] [address] Pain Discharge Disposition: Home or Self Care [...] pain documented in this encounter Care Teams Top Collar Maker Relationship Specialty Start Date End Date Betito Rico PA PCP - General Physician Pantry Worker 11/08/24 documented as of this encounter
--- OUTSIDE RECORDS SUMMARY | 2024-12-04 09:32 | XMS_ITS | Encounter Summary ---
Author Organization [facility] Address [address] [place] [address] Care Team Providers Care Exploitation Analyst Name Role Phone Betito Rico Primary Care Provider [phone] Reason for Referral * Pain Management (Routine) - Closed Specialty Diagnoses / Procedures Referred By Deedeeac t Referred To Contact Pain Medicine Diagnoses Radiculopathy, thoracic region Procedures INJECTION STEROID EPIDURAL TRANSFORAMINAL LEFT Sixto Olmedo DO [address] [address] Phone: tel: fax: Referral ID Status Reason Start Date Expiration Date Visits Re quested Visits Authorized [id number] Closed 10/27/2024 10/27/2025 1 1 Reason for Visit * Pain Management (Routine) - Closed Specialty Diagnoses / Procedures Referred By Contac t Referred To Contact Pain Medicine Diagnoses Radiculopathy, thoracic region Procedures INJECTION STEROID EPIDURAL TRANSFORAMINAL LEFT Sixto Olmedo DO [address] [address] Phone: tel: fax: Referral ID Status Reason Start Date Expiration Date Visits Re quested Visits Authorized [id number] Closed 10/27/2024 10/27/2025 1 1 Encounter Details Date Type Department Care Team (Latest Contact Info) Description 11/08/2024 12:08 PM EST - 11/08/2024 11:59 PM EST Hospital Encounter [facility] Pain Management [address] [place] [address] YvonneSixto anand DO [address] [address] Radiculopathy, thoracic region Discharge Disposition: Home or Self Care Social [...] PM EST documented as of this encounter Last Filed [...] Index - - documented in this encounter Discharge Instructions * Attachments The following attachments cannot be sent through Care Everywhere. * Soft Tissue Injection for Pain (Croatian) documented in this encounter Medications at Time of Discharge [...] or Self Care documented in this encounter H&P Notes * Sixto Olmedo DO - 11/08/2024 1:30 PM EST Please refer to our office notes for complete details of history of present illness and physical examination. They were reviewed. No changes are reported. documented in this encounter Procedure Notes * Lissette Roldan RN - 11/08/2024 1:30 PM EST Johnny carrillo [phone], ride home * Kristy Parra RN - [...] Sixto Olmedo DO POINT OF CARE TEST ENTER/EDIT OR DERABLES Final Result documented in this encounter Visit [...] 0.9 % flush 10 mL 2 025 Discharge Count Last Ordered Date First Orde red Date DISCHARGE PATIENT 1 11/08/2024 documented in this encounter Care Teams Exploitation Analyst Relationship Specialty Start Date End Date Betito Rico PA PCP - General Physician Associate Media Planner 11/08/24 documented as of this encounter
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
[2024-12-04 10:07] LABS: Amphetamine Screen Urine POSITIVE (Not Detect); Barbiturates, Urine Not Detected (Not Detect); Benzodiazepines Screen Urine Not Detected (Not Detect); Buprenorphine Scr Not Detected (Not Detect); Cannabinoid Screen Urine POSITIVE (Not Detect); Cocaine Screen Urine Not Detected (Not Detect); Fentanyl, urine Not Detected (Not Detect); Methadone Screen, Urine Not Detected (Not Detect); Opiate Screen Urine POSITIVE (Not Detect); Oxycodone Screen Urine Positive (Not Detect); Phencyclidine Screen Urine Not Detected (Not Detect)
[2024-12-04 11:10] LABS: Appearance Urine Cloudy; Color Urine Yellow; Glucose Urine UA Negative (Negative); Leukocyte Esterase Urine Moderate (2+) (Negative); Nitrite Urine Negative (Negative); PH 5.5 (5.0-9.0); Specific Gravity - Urine 1.025 (1.005-1.025); UMIC TRIGGER UA YES; Urine Blood Negative (Negative); Urine Ketones Negative (Negative); Urine Protein Negative (Neg-Trace)
--- NOTE | 2024-12-04 11:20 | PC.NURSE ---
report given to shubham RN- pt moved to [facility]
[2024-12-04 11:25] LABS: Bacteria Urine 3+ (None Seen); Hyaline Casts Urine 0-2 /LPF (0-2); RBC Urine 0-2 /HPF (0-2)
[2024-12-04 11:26] VITALS: BP 86/43; PULSE 74; RESP 14; O2SAT 99
--- NOTE | 2024-12-04 11:50 | PC.NURSE ---
Assumed care of patient at 1140, patient is calm and cooperative, speaking with CARE team
--- NOTE | 2024-12-04 12:17 | MHC.CARE ---
Pt will be an adult [facility] bedsearch.
[2024-12-04 14:13] VITALS: BP 98/52; PULSE 55; RESP 16; TEMP 36.7; O2SAT 97
[2024-12-04] MEDS: Ibuprofen 600 MG TABLET PO (18:50)
[2024-12-04] MEDS: clonazePAM 0.5 MG TABLET PO (19:15)
[2024-12-04] MEDS: Lurasidone HCl 20 MG TABLET PO (20:05)
[2024-12-04] MEDS: traZODone HCL 100 MG TABLET PO (20:05)
[2024-12-05] MEDS: TiZANidine HCL 4 MG TABLET PO ×3 (04:32→21:08)
[2024-12-05] MEDS: FLUoxetine HCl 20 MG CAPSULE 60 MG PO (07:31)
[2024-12-05] MEDS: Dextroamphetamine/Amphetamine XR 10 MG CAP.ER.24H 30 MG PO (07:32)
[2024-12-05] MEDS: Ibuprofen 600 MG TABLET PO (07:32)
--- NOTE | 2024-12-05 07:50 | ECG_ITS ---
Test Reason : admission Blood Pressure : */* mmHG Vent. Rate : 54 BPM Atrial Rate : 54 BPM P-R Int : 134 ms QRS Dur : 86 ms QT Int : 426 ms P-R-T Axes : 47 82 65 degrees QTcB Int : 403 ms Sinus bradycardia Otherwise normal ECG When compared with ECG of 23-Jul-2023 20:28, No significant change was found Referred By: Eva Trammell Electronically Signed By: TRISH CARBAJAL
--- NOTE | 2024-12-05 09:18 | PHA.MEDREC ---
Addendum entered by Cassius Kenyon RPh 12/05/24 09:28: Med rec was reviewed by [facility]. Original Note: Pharmacy Consult ? Medication Reconciliation Pharmacy has completed the medication reconciliation. Reviewed med rec done by nursing.
[2024-12-05] MEDS: valACYclovir HCL 500 MG TABLET PO (09:26)
[2024-12-05] MEDS: clonazePAM 0.5 MG TABLET PO ×2 (09:45→23:52)
[2024-12-05] MEDS: Acetaminophen 325 MG TABLET 975 MG PO ×3 (10:27→21:09)
[2024-12-05 12:16] VITALS: BP 94/56; PULSE 61; RESP 12; TEMP 36.3; O2SAT 100
--- NOTE | 2024-12-05 12:42 | P.HPPS_ITS ---
[facility] Date of Service: 12/05/24 Chief Complaint: crisis Sources of Information: patient interviewed, chart reviewed and crisis/core team assessment reviewed HPI Subjective Notes: Barnhart Warning and Conditional Voluntary Narrative: Patient is a 49-year-old female with history MDD and PTSD who self presented to ER due to suicidal ideation secondary to increased depression. Per crisis report, patient reports suicidal ideation and increased depression. She states having a recent change in medications. History of suicide attempts, 1 requiring intubation. Was hospitalized at [facility] in 2022 after her adult daughter . She also had a suicide attempt after her grandmother in 2020; She was intubated during that attempt. History of multiple inpatient psychiatric hospitalizations. History of self-injurious behavior via cutting and hitting self. Patient reports marijuana use daily and sporadic use of opiates that she reports taking a friend's due to chronic pain. Utox positive for opiates, oxycodone, amphetamines and marijuana. Patient reports she feels her medications are not working. She reported suicidal ideation but did not want to disclose a plan. denies HI/VH/AH. She reports poor sleep. During admission assessment, patient presents alert and oriented x3. Calm and cooperative. Patient reports increased depression; patient stated, I'm always depressed. Since my daughter it has been worse. I don't feel like doing life anymore. I don't see the point in any of this . Patient reports history of depression and suicidal ideation since the age of 20. She reports multiple suicide attempts via overdosing on prescribed medications. History of cutting and hitting self but states she has not done this in a few years. She reports being medication compliant. Patient reports at baseline she still feels depressed but just not suicidal . She reports difficulty falling and staying asleep. Denies HI/VH/AH. Patient reports smoking marijuana daily but denies any other substance use. Discussed medications; risks/benefits reviewed of lithium. Patient agreed to trial. T/W spoke to outpatient prescriber, Dotty Chung, who reports patient is having a difficult time accepting the of her daughter to alcoholism. She reports patient states that she stops her medications at times to harm self and cause discomfort. Reports history of borderline personality traits. Discussed starting patient on lithium. Past Psychiatric History: History of multiple inpatient psychiatric hospitalizations. History of multiple suicide attempts since age 20. One requiring intubation. Patient reports all attempts were via overdose of prescription medications. History of SIB via cutting and hitting self. Outpatient prescriber: Dotty Chung Therapist: Anahi (she can not recall therapist last name or clinic) Medication trials of: Prozac, Wellbutrin, Paxil, Abilify, Latuda, sertraline, trintellix, trazodone, citalopram. Medical Evaluation Reviewed: Yes [facility] Medical History Osteoarthritis Depression GERD (gastroesophageal reflux disease) Atypical chest pain GEORGES (obstructive sleep apnea) On anticoagulant therapy Menorrhagia Pulmonary embolism Syncope and collapse Subchondral sclerosis EDS (Juan-Danlos syndrome) Surgical History Hx of colonoscopy Hx of hand surgery History of endometrial ablation H/O bilateral breast reduction surgery Hx of section History of back surgery H/O knee surgery H/O shoulder surgery (~02/2019) Family History: unknown. Social History: Lives alone. single. 4 kids (9 y/o son lives with his father. Two adult children in [place]. 1 child in 2022). 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 Substance History: she reports smoking marijuana daily. denies any other substance use. utox positive for marijuana, opiates and amphetamines. Trauma History: yes Diagnostics Vital Signs (24Hr): Vital Signs - 24 hr 12/04/24 14:13 12/05/24 12:16 Temperature 98.1 F 97.3 F Pulse Rate 55 61 Respiratory Rate 16 12 Blood Pressure 98/52 L 94/56 L Pulse Oximetry 97 100 Oxygen Delivery Method Room Air Room Air BMI result Body Mass Index 31.1 Labs 12/04/24 08:27 12/05/24 14:04 Labs: Laboratory Results - last 48 hr 12/04/24 12/04/24 08:27 09:52 WBC 7.6 RBC 4.33 Hgb 12.4 Hct 38.3 MCV 88.5 MCH 28.6 MCHC 32.4 RDW 14.1 Plt Count 300 MPV 9.2 L Immature Gran % (Auto) 0.4 Neut % (Auto) 51.6 Lymph % (Auto) 35.6 [place] % (Auto) 9.1 Eos % (Auto) 2.9 Baso % (Auto) 0.4 Lymph # (Auto) 2.7 [place] # (Auto) 0.7 Eos # (Auto) 0.2 Baso # (Auto) 0.0 Abs Immat Gran (auto) 0.03 Absolute Neuts (auto) 3.9 Absolute Nucleated RBC 0.000 Nucleated RBC % (auto) 0.0 Sodium 141 Potassium 4.3 Chloride 109 H Carbon Dioxide 24 Anion Gap 12 BUN 12 Creatinine 0.97 Estim Creat Clear Calc 71.7 Estimated GFR > 60 Random Glucose 102 Calcium 8.6 Total Bilirubin 0.4 AST 22 ALT 18 Alkaline Phosphatase 73 Total Protein 7.4 Albumin 3.7 Urine Color Yellow Urine Appearance Cloudy Urine pH 5.5 Ur Specific New Site 1.025 Urine Protein Negative Urine Glucose (UA) Negative Urine Ketones Negative Urine Blood Negative Urine Nitrite Negative Ur Leukocyte Esterase Moderate (2+) H Urine RBC 0-2 Urine WBC 11-20 Ur Squamous Epith Cells 11-20 Urine Bacteria 3+ Hyaline Casts 0-2 Salicylates < 5.0 L Urine Opiates Screen POSITIVE H Ur Buprenorphine Scrn Not Detected Ur Oxycodone Screen Positive H Urine Methadone Screen Not Detected Urine Fentanyl Screen Not Detected Acetaminophen < 3 Ur Barbiturates Screen Not Detected Ur Phencyclidine Scrn Not Detected Ur Amphetamines Screen POSITIVE H U Benzodiazepines Scrn Not Detected Urine Cocaine Screen Not Detected U Marijuana (THC) Screen POSITIVE H Ethyl Alcohol < 10 Meds/Allergies Meds Home Medications ?Medication ?Instructions ?Recorded ?Confirmed ?Type dextroamphetamine-amphetamine ER 1 cap PO DAILY@0800 07/23/23 12/04/24 History 30 mg 24hr capsule,extend release clonazepam 0.5 mg tablet 0.5 mg PO BID PRN Anxiety 12/04/24 12/04/24 History lurasidone 20 mg tablet 20 mg PO BEDTIME 12/04/24 12/04/24 History tizanidine 4 mg tablet 4 mg PO TID PRN muscle spasm 12/04/24 12/04/24 History trazodone 50 mg tablet 100 mg PO BEDTIME Insomnia 12/04/24 12/04/24 History Allergies Allergies Allergy/AdvReac Type Severity Reaction Status Date / Time erythromycin base Allergy Severe PANCREATITI Verified 12/04/24 08:20 [ERYTHROMYCIN BASE] S Penicillins [PCN] Allergy Severe HIVES Verified 12/04/24 08:20 Mental Status Exam Mental Status Exam Narrative: Pt is alert and oriented; behavior is cooperative, calm; dressed in casual attire; mood is described as depressed ; eye contact appropriate; Speech is normal rate, volume and not pressured; thought process is organized and goal directed; Thought content is on tx; denies HI/VH/AH. She reports suicidal ideation with plan to overdose on medications. Assessment & Plan Assessment & Plan (1) MDD (major depressive disorder), recurrent episode, moderate: Status: Acute Code(s): F33.1 - Major depressive disorder, recurrent, moderate (2) PTSD (post-traumatic stress disorder): Status: Acute Code(s): F43.10 - Post-traumatic stress disorder, unspecified Plan Patient is a 49-year-old female with history MDD and PTSD who self presented to ER due to suicidal ideation secondary to increased depression. Plan: CV 15 minute safety checks Continue home medications Start: Bailey 300mg PO BID Obtain collateral Encourage groups Discharge planning Patient educated on: diagnosis and medication risk/benefits Reason for continued inpatient stay Substantial Risk for: harm to self and med/psych decompensation Statement Statement: I have reviewed the history and physical and performed a pertinent examination on my patient. No changes have occurred unless specified. If the History and Physical was not performed prior to admission, the Hospitalist's service will be consulted for completing the admission physical. Time Spent With Patient Time: Total time managing care of this patient today __60__ minutes.
[2024-12-05 13:00] VITALS: BP 105/59; PULSE 52; RESP 16; TEMP 36.1; O2SAT 98
[2024-12-05] MEDS: Ibuprofen 800 MG TABLET PO ×2 (13:30→17:42)
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
[2024-12-05 14:19] VITALS: BMI 30.9
--- NOTE | 2024-12-05 14:25 | PC.NURSE ---
pt declined flu vaccine, already immunized this season
[2024-12-05 14:29] LABS: Alanine Aminotransferase 14 U/L (0-31); Albumin Level 3.6 g/dL (3.5-5.0); Alkaline Phosphatase 75 U/L (39-117); Anion Gap 9 (12-20); Aspartate Amino Transferase 21 U/L (5-31); Bilirubin Total 0.6 mg/dL (0.0-1.0); Blood Urea Nitrogen 10 mg/dL (9-16); Calcium 8.6 mg/dL (8.4-10.2); Carbon Dioxide 25 mmol/L (22-29); Chloride 109 mmol/L (96-108); Creatinine Clr Calc Pharmacy 84.5; Estimated Glomerular Filt Rate > 60; Glucose Random 110 mg/dL (60-115); Potassium 4.3 mmol/L (3.3-5.1); Sodium 139 mmol/L (135-145)
[2024-12-05 16:57] LABS: Appearance Urine Clear; Color Urine Yellow; Glucose Urine UA Negative (Negative); Leukocyte Esterase Urine Large (3+) (Negative); Nitrite Urine Negative (Negative); PH 6.5 (5.0-9.0); Specific Gravity - Urine 1.015 (1.005-1.025); UMIC TRIGGER UA YES; Urine Blood Negative (Negative); Urine Ketones Negative (Negative); Urine Protein Negative (Neg-Trace)
[2024-12-05 16:58] LABS: UPreg QC Valid YES; Urine Pregnancy NEGATIVE (NEGATIVE)
[2024-12-05 16:59] LABS: Bacteria Urine 3+ (None Seen); RBC Urine 0-2 /HPF (0-2); WBC Urine 21-50 /HPF (0-5)
[2024-12-05 20:00] VITALS: BP 100/50; PULSE 51; RESP 16; TEMP 36.4; O2SAT 95
[2024-12-05] MEDS: Lithium Carbonate ER 300 MG TABLET.ER PO (20:18)
[2024-12-05] MEDS: Lurasidone HCl 20 MG TABLET PO (20:18)
[2024-12-05] MEDS: traZODone HCL 50 MG TABLET PO (23:52)
[2024-12-06] MEDS: TiZANidine HCL 4 MG TABLET PO ×3 (06:56→23:50)
[2024-12-06 07:50] VITALS: BP 82/40; PULSE 50; RESP 16; TEMP 36.3; O2SAT 96
[2024-12-06 08:49] LABS: Cholesterol 193 mg/dL (<200); HDL Cholesterol 47 mg/dL (>40); LDL Cholesterol Calculated 131 mg/dL (<100); Triglycerides 78 mg/dL (<150)
[2024-12-06] MEDS: Dextroamphetamine/Amphetamine XR 10 MG CAP.ER.24H 30 MG PO (08:59)
[2024-12-06] MEDS: valACYclovir HCL 500 MG TABLET PO (09:00)
[2024-12-06] MEDS: FLUoxetine HCl 20 MG CAPSULE 60 MG PO (09:00)
[2024-12-06] MEDS: Lithium Carbonate ER 300 MG TABLET.ER PO ×2 (09:00→20:31)
--- NOTE | 2024-12-06 09:18 | P.PNPSI_ITS ---
Subjective Subjective Date of Service: 12/06/24 Reason For Visit: crisis Subjective Notes: Conditional Voluntary Interim History: Pt continues to report feeling depressed; states suicidal ideation with no plan. denies HI/VH/AH. She reports sleeping well last night. denies any side effects from medications. encouraged to attend groups. Continue current tx plan. Medication Compliance: Yes Side effects from medications: No Mental Status Exam Mental Status Exam Narrative: Pt is alert and oriented; behavior is cooperative, calm; dressed in casual attire; mood is described as depressed ; eye contact appropriate; Speech is normal rate, volume and not pressured; thought process is organized and goal directed; Thought content is on tx; denies HI/VH/AH. She reports suicidal ideation without plan. Diagnostics Vital Signs (24Hr): Vital Signs - 24 hr 12/05/24 12:16 12/05/24 13:00 12/05/24 20:00 Temperature 97.3 F 96.9 F 97.5 F Pulse Rate 61 52 51 Respiratory Rate 12 16 16 Blood Pressure 94/56 L 105/59 L 100/50 L Pulse Oximetry 100 98 95 Oxygen Delivery Method Room Air Room Air Room Air 12/06/24 07:50 Temperature 97.3 F Pulse Rate 50 Respiratory Rate 16 Blood Pressure 82/40 L Pulse Oximetry 96 Oxygen Delivery Method Room Air BMI result Body Mass Index 30.9 Labs 12/04/24 08:27 12/05/24 14:04 Labs: Laboratory Results - last 48 hr 12/04/24 12/05/24 12/05/24 09:52 14:04 16:30 Sodium 139 Potassium 4.3 Chloride 109 H Carbon Dioxide 25 Anion Gap 9 L BUN 10 Creatinine 0.82 Estim Creat Clear Calc 84.5 Estimated GFR > 60 Random Glucose 110 Calcium 8.6 Total Bilirubin 0.6 AST 21 ALT 14 Alkaline Phosphatase 75 Total Protein 7.0 Albumin 3.6 Triglycerides Cholesterol LDL Cholesterol, Calc HDL Cholesterol Urine Color Yellow Yellow Urine Appearance Cloudy Clear Urine pH 5.5 6.5 Ur Specific [place] 1.025 1.015 Urine Protein Negative Negative Urine Glucose (UA) Negative Negative Urine Ketones Negative Negative Urine Blood Negative Negative Urine Nitrite Negative Negative Ur Leukocyte Esterase Moderate (2+) H Large (3+) H Urine RBC 0-2 0-2 Urine WBC 11-20 21-50 H Ur Squamous Epith Cells 11-20 6-10 Urine Bacteria 3+ 3+ Hyaline Casts 0-2 3-5 Urine Test NEGATIVE Urine Opiates Screen POSITIVE H Ur Buprenorphine Scrn Not Detected Ur Oxycodone Screen Positive H Urine Methadone Screen Not Detected Urine Fentanyl Screen Not Detected Ur Barbiturates Screen Not Detected Ur Phencyclidine Scrn Not Detected Ur Amphetamines Screen POSITIVE H U Benzodiazepines Scrn Not Detected Urine Cocaine Screen Not Detected U Marijuana (THC) Screen POSITIVE H 12/06/24 07:31 Sodium Potassium Chloride Carbon Dioxide Anion Gap BUN Creatinine Estim Creat Clear Calc Estimated GFR Random Glucose Calcium Total Bilirubin AST ALT Alkaline Phosphatase Total Protein Albumin Triglycerides 78 Cholesterol 193 LDL Cholesterol, Calc 131 H HDL Cholesterol 47 Urine Color Urine Appearance Urine pH Ur Specific [place] Urine Protein Urine Glucose (UA) Urine Ketones Urine Blood Urine Nitrite Ur Leukocyte Esterase Urine RBC Urine WBC Ur Squamous Epith Cells Urine Bacteria Hyaline Casts Urine Test Urine Opiates Screen Ur Buprenorphine Scrn Ur Oxycodone Screen Urine Methadone Screen Urine Fentanyl Screen Ur Barbiturates Screen Ur Phencyclidine Scrn Ur Amphetamines Screen U Benzodiazepines Scrn Urine Cocaine Screen U Marijuana (THC) Screen Medications Medications Current Medications Acetaminophen (Acetaminophen 325 Mg Tablet) 975 mg PO TID PRN PRN Reason: Pain, Moderate(Pain Scale 4-6) Last Admin: 12/05/24 21:09 Dose: 975 mg Al Hydroxide/Mg Hydroxide (Magnesium Hydrox/Alum Hydrox 30 Ml Oral.Susp) 30 ml PO Q6H PRN PRN Reason: Heartburn/Nausea Amphetamine/Dextroamphetamine (Dextroamphetamine/Amphetamine Xr 10 Mg Cap.Er.24h) 30 mg PO DAILY@0800 [facility] Last Admin: 12/06/24 08:59 Dose: 30 mg Amphetamine/Dextroamphetamine (Dextroamphetamine/Amphetamine Xr 10 Mg Cap.Er.24h) 20 mg PO DAILY@1300 [facility] Clonazepam (Clonazepam 0.5 Mg Tablet) 0.5 mg PO BID PRN PRN Reason: Anxiety Last Admin: 12/05/24 23:52 Dose: 0.5 mg Fluoxetine HCl (Fluoxetine Hcl 20 Mg Capsule) 60 mg PO DAILY [facility] Last Admin: 12/06/24 09:00 Dose: 60 mg Hydroxyzine HCl (Hydroxyzine Hcl 25 Mg Tablet) 25 mg PO Q6H PRN PRN Reason: mild anxiety Ibuprofen (Ibuprofen 800 Mg Tablet) 800 mg PO TID PRN PRN Reason: Pain, Mild 1-3,fever,headache Last Admin: 12/05/24 17:42 Dose: 800 mg [place] Carbonate ([place] Carbonate Er 300 Mg Tablet.Er) 300 mg PO BID [facility] Last Admin: 12/06/24 09:00 Dose: 300 mg Lurasidone HCl (Lurasidone Hcl 20 Mg Tablet) 20 mg PO BEDTIME [facility] Last Admin: 12/05/24 20:18 Dose: 20 mg Magnesium Hydroxide (Milk Of Magnesia 30 Ml Oral.Susp) 30 ml PO DAILY PRN PRN Reason: Constipation Nicotine Polacrilex (Nicotine Polacrilex 2 Mg Gum) 4 mg BUCCAL Q2H PRN PRN Reason: Nicotine Cravings Tizanidine HCl (Tizanidine Hcl 4 Mg Tablet) 4 mg PO TID PRN PRN Reason: muscle spasm Last Admin: 12/06/24 06:56 Dose: 4 mg Trazodone HCl (Trazodone Hcl 50 Mg Tablet) 50 mg PO BEDTIME MRX1 PRN PRN Reason: Insomnia Last Admin: 12/05/24 23:52 Dose: 50 mg Valacyclovir HCl (Valacyclovir Hcl 500 Mg Tablet) 500 mg PO DAILY [facility] Last Admin: 12/06/24 09:00 Dose: 500 mg Allergies Allergies Allergy/AdvReac Type Severity Reaction Status Date / Time erythromycin base Allergy Severe PANCREATITI Verified 12/04/24 08:20 [ERYTHROMYCIN BASE] S Penicillins [PCN] Allergy Severe HIVES Verified 12/04/24 08:20 Assessment & Plan Assessment & Plan (1) MDD (major depressive disorder), recurrent episode, moderate: Status: Acute Code(s): F33.1 - Major depressive disorder, recurrent, moderate (2) PTSD (post-traumatic stress disorder): Status: Acute Code(s): F43.10 - Post-traumatic stress disorder, unspecified Plan Patient is a 49-year-old female with history MDD and PTSD who self presented to ER due to suicidal ideation secondary to increased depression. Plan: CV 15 minute safety checks Continue home medications Start: [place] 300mg PO BID Obtain collateral Encourage groups Discharge planning 12/06: Pt continues to report feeling depressed; states suicidal ideation with no plan. denies HI/VH/AH. She reports sleeping well last night. denies any side effects from medications. encouraged to attend groups. Continue current tx plan. Patient educated on: diagnosis, medication risk/benefits and therapeutic strategies Reason for continued inpatient stay Substantial Risk for: harm to self and med/psych decompensation Time Spent With Patient Time: Total time managing care of this patient today _20___ minutes.
[2024-12-06] MEDS: Ibuprofen 800 MG TABLET PO ×2 (10:15→17:40)
[2024-12-06] MEDS: Acetaminophen 325 MG TABLET 975 MG PO ×2 (12:36→20:31)
[2024-12-06] MEDS: Dextroamphetamine/Amphetamine XR 10 MG CAP.ER.24H 20 MG PO (12:36)
[2024-12-06] MEDS: clonazePAM 0.5 MG TABLET PO (12:37)
[2024-12-06 20:00] VITALS: BP 98/60; PULSE 54; RESP 16; TEMP 36.3; O2SAT 97
[2024-12-06] MEDS: Lurasidone HCl 20 MG TABLET PO (20:31)
[2024-12-06] MEDS: traZODone HCL 50 MG TABLET PO (23:50)
[2024-12-07] MEDS: clonazePAM 0.5 MG TABLET PO ×2 (02:24→14:06)
[2024-12-07] MEDS: Ibuprofen 800 MG TABLET PO ×3 (02:26→16:42)
[2024-12-07] MEDS: Acetaminophen 325 MG TABLET 975 MG PO ×3 (07:21→23:54)
[2024-12-07] MEDS: TiZANidine HCL 4 MG TABLET PO ×2 (07:24→20:11)
[2024-12-07 07:25] VITALS: BP 96/55; PULSE 68; RESP 14; TEMP 36; O2SAT 99
[2024-12-07] MEDS: Lithium Carbonate ER 300 MG TABLET.ER PO ×2 (08:44→20:12)
[2024-12-07] MEDS: FLUoxetine HCl 20 MG CAPSULE 60 MG PO (08:44)
[2024-12-07] MEDS: Dextroamphetamine/Amphetamine XR 10 MG CAP.ER.24H 30 MG PO (08:45)
[2024-12-07] MEDS: valACYclovir HCL 500 MG TABLET PO (08:46)
--- NOTE | 2024-12-07 09:34 | HO.PSYCHPN ---
Subjective Subjective Date of Service: 12/07/24 Reason For Visit: crisis Subjective Notes: Conditional Voluntary Interim History: Keeping to self. laying in bed. not attending groups. Pt continues to report feeling depressed but reports feels she is improving; pt stated, I don't feel super sad or teary anymore. I'm not actively thinking about ways to . I'm not feeling as hopeless. I'm thinking about my son . Pt reports passive suicidal ideation. denies HI/VH/AH. She is requesting to stop taking Latuda; DC latuda. Medication Compliance: Yes Side effects from medications: No Attending Groups: No Mental Status Exam Mental Status Exam Narrative: Pt is alert and oriented; behavior is cooperative, calm; dressed in casual attire; mood is described as depressed ; eye contact appropriate; Speech is normal rate, volume and not pressured; thought process is organized and goal directed; Thought content is on tx; denies HI/VH/AH. passive suicidal ideation Diagnostics Vital Signs (24Hr): Vital Signs - 24 hr 12/06/24 20:00 12/07/24 07:25 Temperature 97.3 F 96.8 F Pulse Rate 54 68 Respiratory Rate 16 14 Blood Pressure 98/60 96/55 L Pulse Oximetry 97 99 Oxygen Delivery Method Room Air Room Air BMI result Body Mass Index 30.9 Labs 12/04/24 08:27 12/05/24 14:04 Labs: Laboratory Results - last 48 hr 12/05/24 12/05/24 12/06/24 14:04 16:30 07:31 Sodium 139 Potassium 4.3 Chloride 109 H Carbon Dioxide 25 Anion Gap 9 L BUN 10 Creatinine 0.82 Estim Creat Clear Calc 84.5 Estimated GFR > 60 Random Glucose 110 Calcium 8.6 Total Bilirubin 0.6 AST 21 ALT 14 Alkaline Phosphatase 75 Total Protein 7.0 Albumin 3.6 Triglycerides 78 Cholesterol 193 LDL Cholesterol, Calc 131 H HDL Cholesterol 47 Urine Color Yellow Urine Appearance Clear Urine pH 6.5 Ur Specific [place] 1.015 Urine Protein Negative Urine Glucose (UA) Negative Urine Ketones Negative Urine Blood Negative Urine Nitrite Negative Ur Leukocyte Esterase Large (3+) H Urine RBC 0-2 Urine WBC 21-50 H Ur Squamous Epith Cells 6-10 Urine Bacteria 3+ Hyaline Casts 3-5 Urine Test NEGATIVE Medications Medications Current Medications Acetaminophen (Acetaminophen 325 Mg Tablet) 975 mg PO TID PRN PRN Reason: Pain, Moderate(Pain Scale 4-6) Last Admin: 12/07/24 07:21 Dose: 975 mg Al Hydroxide/Mg Hydroxide (Magnesium Hydrox/Alum Hydrox 30 Ml Oral.Susp) 30 ml PO Q6H PRN PRN Reason: Heartburn/Nausea Amphetamine/Dextroamphetamine (Dextroamphetamine/Amphetamine Xr 10 Mg Cap.Er.24h) 30 mg PO DAILY@0800 [facility] Last Admin: 12/07/24 08:45 Dose: 30 mg Amphetamine/Dextroamphetamine (Dextroamphetamine/Amphetamine Xr 10 Mg Cap.Er.24h) 20 mg PO DAILY@1300 [facility] Last Admin: 12/06/24 12:36 Dose: 20 mg Clonazepam (Clonazepam 0.5 Mg Tablet) 0.5 mg PO BID PRN PRN Reason: Anxiety Last Admin: 12/07/24 02:24 Dose: 0.5 mg Fluoxetine HCl (Fluoxetine Hcl 20 Mg Capsule) 60 mg PO DAILY [facility] Last Admin: 12/07/24 08:44 Dose: 60 mg Hydroxyzine HCl (Hydroxyzine Hcl 25 Mg Tablet) 25 mg PO Q6H PRN PRN Reason: mild anxiety Ibuprofen (Ibuprofen 800 Mg Tablet) 800 mg PO TID PRN PRN Reason: Pain, Mild 1-3,fever,headache Last Admin: 12/07/24 02:26 Dose: 800 mg [place] Carbonate ([place] Carbonate Er 300 Mg Tablet.Er) 300 mg PO BID [facility] Last Admin: 12/07/24 08:44 Dose: 300 mg Lurasidone HCl (Lurasidone Hcl 20 Mg Tablet) 20 mg PO BEDTIME [facility] Last Admin: 12/06/24 20:31 Dose: 20 mg Magnesium Hydroxide (Milk Of Magnesia 30 Ml Oral.Susp) 30 ml PO DAILY PRN PRN Reason: Constipation Nicotine Polacrilex (Nicotine Polacrilex 2 Mg Gum) 4 mg BUCCAL Q2H PRN PRN Reason: Nicotine Cravings Tizanidine HCl (Tizanidine Hcl 4 Mg Tablet) 4 mg PO TID PRN PRN Reason: muscle spasm Last Admin: 12/07/24 07:24 Dose: 4 mg Trazodone HCl (Trazodone Hcl 50 Mg Tablet) 50 mg PO BEDTIME MRX1 PRN PRN Reason: Insomnia Last Admin: 12/06/24 23:50 Dose: 50 mg Valacyclovir HCl (Valacyclovir Hcl 500 Mg Tablet) 500 mg PO DAILY [facility] Last Admin: 12/07/24 08:46 Dose: 500 mg Allergies Allergies Allergy/AdvReac Type Severity Reaction Status Date / Time erythromycin base Allergy Severe PANCREATITI Verified 12/04/24 08:20 [ERYTHROMYCIN BASE] S Penicillins [PCN] Allergy Severe HIVES Verified 12/04/24 08:20 Assessment & Plan Assessment & Plan (1) MDD (major depressive disorder), recurrent episode, moderate: Status: Acute Code(s): F33.1 - Major depressive disorder, recurrent, moderate (2) PTSD (post-traumatic stress disorder): Status: Acute Code(s): F43.10 - Post-traumatic stress disorder, unspecified Plan Patient is a 49-year-old female with history MDD and PTSD who self presented to ER due to suicidal ideation secondary to increased depression. Plan: CV 15 minute safety checks Continue home medications Start: [place] 300mg PO BID Obtain collateral Encourage groups Discharge planning 12/06: Pt continues to report feeling depressed; states suicidal ideation with no plan. denies HI/VH/AH. She reports sleeping well last night. denies any side effects from medications. encouraged to attend groups. Continue current tx plan. 12/07: Keeping to self. laying in bed. not attending groups. Pt continues to report feeling depressed but reports feels she is improving; pt stated, I don't feel super sad or teary anymore. I'm not actively thinking about ways to . I'm not feeling as hopeless. I'm thinking about my son . Pt reports passive suicidal ideation. denies HI/VH/AH. She is requesting to stop taking Latuda; DC latuda. Patient educated on: diagnosis and medication risk/benefits Reason for continued inpatient stay Substantial Risk for: med/psych decompensation Time Spent With Patient Time: Total time managing care of this patient today _20___ minutes.
[2024-12-07] MEDS: Dextroamphetamine/Amphetamine XR 10 MG CAP.ER.24H 20 MG PO (12:50)
[2024-12-07 20:00] VITALS: BP 98/54; PULSE 58; RESP 16; TEMP 36.7; O2SAT 96
[2024-12-07] MEDS: hydrOXYzine HCL 25 MG TABLET PO (23:55)
[2024-12-07] MEDS: traZODone HCL 50 MG TABLET PO (23:55)
[2024-12-08] MEDS: TiZANidine HCL 4 MG TABLET PO ×3 (04:37→20:51)
[2024-12-08] MEDS: Ibuprofen 800 MG TABLET PO (04:38)
[2024-12-08 07:00] VITALS: BMI 30.5
[2024-12-08 07:58] VITALS: BP 86/50; PULSE 60; RESP 20; TEMP 36; O2SAT 97
[2024-12-08] MEDS: Dextroamphetamine/Amphetamine XR 10 MG CAP.ER.24H 30 MG PO (08:36)
[2024-12-08] MEDS: valACYclovir HCL 500 MG TABLET PO (08:36)
[2024-12-08] MEDS: Lithium Carbonate ER 300 MG TABLET.ER PO ×2 (08:36→20:47)
[2024-12-08] MEDS: FLUoxetine HCl 20 MG CAPSULE 60 MG PO (08:36)
[2024-12-08] MEDS: Acetaminophen 325 MG TABLET 975 MG PO ×2 (08:52→16:17)
--- NOTE | 2024-12-08 09:21 | HO.PSYCHPN ---
Subjective Subjective Date of Service: 12/08/24 Reason For Visit: crisis Subjective Notes: Conditional Voluntary Interim History: Pt reports feeling better today; less blunted during 1:1, joking at times. Pt continues to report passive suicidal ideation. denies HI/VH/AH. denies side effects from stopping latuda. She reports sleeping well. attending some groups. Medication Compliance: Yes Side effects from medications: No Attending Groups: Intermittent Mental Status Exam Mental Status Exam Narrative: Pt is alert and oriented; behavior is cooperative, calm; dressed in casual attire; mood is described as better ; eye contact appropriate; Speech is normal rate, volume and not pressured; thought process is organized and goal directed; Thought content is on tx; denies HI/VH/AH. passive suicidal ideation Diagnostics Vital Signs (24Hr): Vital Signs - 24 hr 12/07/24 20:00 12/08/24 07:58 Temperature 98.1 F 96.8 F Pulse Rate 58 60 Respiratory Rate 16 20 Blood Pressure 98/54 L 86/50 L Pulse Oximetry 96 97 Oxygen Delivery Method Room Air Room Air BMI result Body Mass Index 30.5 Labs 12/04/24 08:27 12/05/24 14:04 Medications Medications Current Medications Acetaminophen (Acetaminophen 325 Mg Tablet) 975 mg PO TID PRN PRN Reason: Pain, Moderate(Pain Scale 4-6) Last Admin: 12/08/24 08:52 Dose: 975 mg Al Hydroxide/Mg Hydroxide (Magnesium Hydrox/Alum Hydrox 30 Ml Oral.Susp) 30 ml PO Q6H PRN PRN Reason: Heartburn/Nausea Amphetamine/Dextroamphetamine (Dextroamphetamine/Amphetamine Xr 10 Mg Cap.Er.24h) 30 mg PO DAILY@0800 [facility] Last Admin: 12/08/24 08:36 Dose: 30 mg Amphetamine/Dextroamphetamine (Dextroamphetamine/Amphetamine Xr 10 Mg Cap.Er.24h) 20 mg PO DAILY@1300 [facility] Last Admin: 12/07/24 12:50 Dose: 20 mg Clonazepam (Clonazepam 0.5 Mg Tablet) 0.5 mg PO BID PRN PRN Reason: Anxiety Last Admin: 12/07/24 14:06 Dose: 0.5 mg Fluoxetine HCl (Fluoxetine Hcl 20 Mg Capsule) 60 mg PO DAILY [facility] Last Admin: 12/08/24 08:36 Dose: 60 mg Hydroxyzine HCl (Hydroxyzine Hcl 25 Mg Tablet) 25 mg PO Q6H PRN PRN Reason: mild anxiety Last Admin: 12/07/24 23:55 Dose: 25 mg Ibuprofen (Ibuprofen 800 Mg Tablet) 800 mg PO TID PRN PRN Reason: Pain, Mild 1-3,fever,headache Last Admin: 12/08/24 04:38 Dose: 800 mg [place] Carbonate ([place] Carbonate Er 300 Mg Tablet.Er) 300 mg PO BID [facility] Last Admin: 12/08/24 08:36 Dose: 300 mg Magnesium Hydroxide (Milk Of Magnesia 30 Ml Oral.Susp) 30 ml PO DAILY PRN PRN Reason: Constipation Nicotine Polacrilex (Nicotine Polacrilex 2 Mg Gum) 4 mg BUCCAL Q2H PRN PRN Reason: Nicotine Cravings Tizanidine HCl (Tizanidine Hcl 4 Mg Tablet) 4 mg PO TID PRN PRN Reason: muscle spasm Last Admin: 12/08/24 04:37 Dose: 4 mg Trazodone HCl (Trazodone Hcl 50 Mg Tablet) 50 mg PO BEDTIME MRX1 PRN PRN Reason: Insomnia Last Admin: 12/07/24 23:55 Dose: 50 mg Valacyclovir HCl (Valacyclovir Hcl 500 Mg Tablet) 500 mg PO DAILY [facility] Last Admin: 12/08/24 08:36 Dose: 500 mg Allergies Allergies Allergy/AdvReac Type Severity Reaction Status Date / Time erythromycin base Allergy Severe PANCREATITI Verified 12/04/24 08:20 [ERYTHROMYCIN BASE] S Penicillins [PCN] Allergy Severe HIVES Verified 12/04/24 08:20 Assessment & Plan Assessment & Plan (1) MDD (major depressive disorder), recurrent episode, moderate: Status: Acute Code(s): F33.1 - Major depressive disorder, recurrent, moderate (2) PTSD (post-traumatic stress disorder): Status: Acute Code(s): F43.10 - Post-traumatic stress disorder, unspecified Plan Patient is a 49-year-old female with history MDD and PTSD who self presented to ER due to suicidal ideation secondary to increased depression. Plan: CV 15 minute safety checks Continue home medications Start: [place] 300mg PO BID Obtain collateral Encourage groups Discharge planning 12/06: Pt continues to report feeling depressed; states suicidal ideation with no plan. denies HI/VH/AH. She reports sleeping well last night. denies any side effects from medications. encouraged to attend groups. Continue current tx plan. 12/07: Keeping to self. laying in bed. not attending groups. Pt continues to report feeling depressed but reports feels she is improving; pt stated, I don't feel super sad or teary anymore. I'm not actively thinking about ways to . I'm not feeling as hopeless. I'm thinking about my son . Pt reports passive suicidal ideation. denies HI/VH/AH. She is requesting to stop taking Latuda; DC latuda. 12/08: Pt reports feeling better today; less blunted during 1:1, joking at times. Pt continues to report passive suicidal ideation. denies HI/VH/AH. denies side effects from stopping latuda. She reports sleeping well. attending some groups. Continue current tx plan. Patient educated on: diagnosis, medication risk/benefits and therapeutic strategies Reason for continued inpatient stay Substantial Risk for: med/psych decompensation Time Spent With Patient Time: Total time managing care of this patient today _20___ minutes.
[2024-12-08] MEDS: hydrOXYzine HCL 25 MG TABLET PO ×2 (09:43→16:18)
[2024-12-08] MEDS: Dextroamphetamine/Amphetamine XR 10 MG CAP.ER.24H 20 MG PO (13:48)
[2024-12-08 19:54] VITALS: BP 103/53; PULSE 51; RESP 14; TEMP 36.4; O2SAT 96
[2024-12-08] MEDS: traZODone HCL 50 MG TABLET PO (22:27)
[2024-12-08] MEDS: clonazePAM 0.5 MG TABLET PO (22:27)
[2024-12-09] MEDS: hydrOXYzine HCL 25 MG TABLET PO ×3 (03:36→20:01)
[2024-12-09] MEDS: Acetaminophen 325 MG TABLET 975 MG PO ×3 (03:36→20:01)
[2024-12-09] MEDS: TiZANidine HCL 4 MG TABLET PO ×3 (06:58→22:24)
[2024-12-09 07:49] VITALS: BP 99/55; PULSE 69; RESP 20; TEMP 36.4; O2SAT 98
[2024-12-09] MEDS: FLUoxetine HCl 20 MG CAPSULE 60 MG PO (08:51)
[2024-12-09] MEDS: Lithium Carbonate ER 300 MG TABLET.ER PO ×2 (08:52→20:01)
[2024-12-09] MEDS: valACYclovir HCL 500 MG TABLET PO (08:52)
--- NOTE | 2024-12-09 09:07 | HO.PSYCHPN ---
Subjective Subjective Date of Service: 12/09/24 Reason For Visit: crisis Subjective Notes: Conditional Voluntary Interim History: Pt reports feeling good today; pt stated, I'm feeling better. I think I'm always going to be depressed because of my daughter passing away and my baseline is that I don't care if I don't wake up in the morning. Pt continues to report passive suicidal ideation. denies HI/VH/AH. [place] level to be drawn tomorrow morning. Pt is hoping to be discharged home on Thursday d/t having to return to work on Thursday. Medication Compliance: Yes Side effects from medications: No Mental Status Exam Mental Status Exam Narrative: Pt is alert and oriented; behavior is cooperative, calm; dressed in casual attire; mood is described as good ; eye contact appropriate; Speech is normal rate, volume and not pressured; thought process is organized and goal directed; Thought content is on tx; denies HI/VH/AH. passive suicidal ideation, which patient reports is her baseline. Diagnostics Vital Signs (24Hr): Vital Signs - 24 hr 12/08/24 19:54 12/09/24 07:49 Temperature 97.6 F 97.6 F Pulse Rate 51 69 Respiratory Rate 14 20 Blood Pressure 103/53 L 99/55 L Pulse Oximetry 96 98 Oxygen Delivery Method Room Air Room Air BMI result Body Mass Index 30.5 Labs 12/04/24 08:27 12/05/24 14:04 Medications Medications Current Medications Acetaminophen (Acetaminophen 325 Mg Tablet) 975 mg PO TID PRN PRN Reason: Pain, Moderate(Pain Scale 4-6) Last Admin: 12/09/24 03:36 Dose: 975 mg Al Hydroxide/Mg Hydroxide (Magnesium Hydrox/Alum Hydrox 30 Ml Oral.Susp) 30 ml PO Q6H PRN PRN Reason: Heartburn/Nausea Amphetamine/Dextroamphetamine (Dextroamphetamine/Amphetamine Xr 10 Mg Cap.Er.24h) 30 mg PO DAILY@0800 [facility] Last Admin: 12/08/24 08:36 Dose: 30 mg Amphetamine/Dextroamphetamine (Dextroamphetamine/Amphetamine Xr 10 Mg Cap.Er.24h) 20 mg PO DAILY@1300 [facility] Last Admin: 12/08/24 13:48 Dose: 20 mg Clonazepam (Clonazepam 0.5 Mg Tablet) 0.5 mg PO BID PRN PRN Reason: Anxiety Last Admin: 12/08/24 22:27 Dose: 0.5 mg Fluoxetine HCl (Fluoxetine Hcl 20 Mg Capsule) 60 mg PO DAILY [facility] Last Admin: 12/09/24 08:51 Dose: 60 mg Hydroxyzine HCl (Hydroxyzine Hcl 25 Mg Tablet) 25 mg PO Q6H PRN PRN Reason: mild anxiety Last Admin: 12/09/24 03:36 Dose: 25 mg Ibuprofen (Ibuprofen 800 Mg Tablet) 800 mg PO TID PRN PRN Reason: Pain, Mild 1-3,fever,headache Last Admin: 12/08/24 04:38 Dose: 800 mg [place] Carbonate ([place] Carbonate Er 300 Mg Tablet.Er) 300 mg PO BID [facility] Last Admin: 12/09/24 08:52 Dose: 300 mg Magnesium Hydroxide (Milk Of Magnesia 30 Ml Oral.Susp) 30 ml PO DAILY PRN PRN Reason: Constipation Nicotine Polacrilex (Nicotine Polacrilex 2 Mg Gum) 4 mg BUCCAL Q2H PRN PRN Reason: Nicotine Cravings Tizanidine HCl (Tizanidine Hcl 4 Mg Tablet) 4 mg PO TID PRN PRN Reason: muscle spasm Last Admin: 12/09/24 06:58 Dose: 4 mg Trazodone HCl (Trazodone Hcl 50 Mg Tablet) 50 mg PO BEDTIME MRX1 PRN PRN Reason: Insomnia Last Admin: 12/08/24 22:27 Dose: 50 mg Valacyclovir HCl (Valacyclovir Hcl 500 Mg Tablet) 500 mg PO DAILY [facility] Last Admin: 12/09/24 08:52 Dose: 500 mg Allergies Allergies Allergy/AdvReac Type Severity Reaction Status Date / Time erythromycin base Allergy Severe PANCREATITI Verified 12/04/24 08:20 [ERYTHROMYCIN BASE] S Penicillins [PCN] Allergy Severe HIVES Verified 12/04/24 08:20 Assessment & Plan Assessment & Plan (1) MDD (major depressive disorder), recurrent episode, moderate: Status: Acute Code(s): F33.1 - Major depressive disorder, recurrent, moderate (2) PTSD (post-traumatic stress disorder): Status: Acute Code(s): F43.10 - Post-traumatic stress disorder, unspecified Plan Patient is a 49-year-old female with history MDD and PTSD who self presented to ER due to suicidal ideation secondary to increased depression. Plan: CV 15 minute safety checks Continue home medications Start: [place] 300mg PO BID Obtain collateral Encourage groups Discharge planning 12/06: Pt continues to report feeling depressed; states suicidal ideation with no plan. denies HI/VH/AH. She reports sleeping well last night. denies any side effects from medications. encouraged to attend groups. Continue current tx plan. 12/07: Keeping to self. laying in bed. not attending groups. Pt continues to report feeling depressed but reports feels she is improving; pt stated, I don't feel super sad or teary anymore. I'm not actively thinking about ways to . I'm not feeling as hopeless. I'm thinking about my son . Pt reports passive suicidal ideation. denies HI/VH/AH. She is requesting to stop taking Latuda; DC latuda. 12/08: Pt reports feeling better today; less blunted during 1:1, joking at times. Pt continues to report passive suicidal ideation. denies HI/VH/AH. denies side effects from stopping latuda. She reports sleeping well. attending some groups. Continue current tx plan. 12/09: Pt reports feeling good today; pt stated, I'm feeling better. I think I'm always going to be depressed because of my daughter passing away and my baseline is that I don't care if I don't wake up in the morning. Pt continues to report passive suicidal ideation. denies HI/VH/AH. [place] level to be drawn tomorrow morning. Pt is hoping to be discharged home on Thursday d/t having to return to work on Thursday. Patient educated on: diagnosis and medication risk/benefits Reason for continued inpatient stay Substantial Risk for: med/psych decompensation Time Spent With Patient Time: Total time managing care of this patient today _20___ minutes.
[2024-12-09] MEDS: Dextroamphetamine/Amphetamine XR 10 MG CAP.ER.24H 30 MG PO (09:20)
[2024-12-09] MEDS: Dextroamphetamine/Amphetamine XR 10 MG CAP.ER.24H 20 MG PO (12:51)
[2024-12-09] MEDS: clonazePAM 0.5 MG TABLET PO ×2 (15:18→22:25)
[2024-12-09 19:52] VITALS: BP 91/59; PULSE 64; RESP 14; TEMP 36.4; O2SAT 98
[2024-12-09] MEDS: traZODone HCL 50 MG TABLET PO (22:25)
[2024-12-10] MEDS: traZODone HCL 50 MG TABLET PO (01:43)
[2024-12-10] MEDS: hydrOXYzine HCL 25 MG TABLET PO (06:06)
[2024-12-10] MEDS: Acetaminophen 325 MG TABLET 975 MG PO (06:06)
[2024-12-10] MEDS: valACYclovir HCL 500 MG TABLET PO (08:45)
[2024-12-10] MEDS: Dextroamphetamine/Amphetamine XR 10 MG CAP.ER.24H 30 MG PO (08:45)
[2024-12-10] MEDS: FLUoxetine HCl 20 MG CAPSULE 60 MG PO (08:45)
--- NOTE | 2024-12-10 08:53 | HO.PSYCHPN ---
Subjective Subjective Date of Service: 12/10/24 Reason For Visit: crisis Subjective Notes: Conditional Voluntary Interim History: The nursing staff reported the patient has an improved with her mood she is flat and withdrawn but slightly brighter affect. The patient is medication compliance. In the afternoon of yesterday was seen that she was more awake and alert. On interview the patient denies new symptoms she reports some improvement. Mental Status Exam Mental Status Exam Patient Appearance: Appropriate Patient Orientation: Person and Situation Level of Consciousness: Awake and Appropriate Patient Behavior: Appropriate, Cooperative and Passive Mood Description: Calm Affect Description: Constricted Patient Cognition Impaired: Yes Ability to Follow Directions: Good Speech Pattern: Clear Hallucinations: None Delusions: Not Present Thought Process: Linear Thought Content: positive for Circumstantial Judgement: Fair Diagnostics Vital Signs (24Hr): Vital Signs - 24 hr 12/09/24 19:52 Temperature 97.6 F Pulse Rate 64 Respiratory Rate 14 Blood Pressure 91/59 L Pulse Oximetry 98 Oxygen Delivery Method Room Air BMI result Body Mass Index 30.5 Labs 12/04/24 08:27 12/10/24 08:40 Medications Medications Current Medications Acetaminophen (Acetaminophen 325 Mg Tablet) 975 mg PO TID PRN PRN Reason: Pain, Moderate(Pain Scale 4-6) Last Admin: 12/10/24 06:06 Dose: 975 mg Al Hydroxide/Mg Hydroxide (Magnesium Hydrox/Alum Hydrox 30 Ml Oral.Susp) 30 ml PO Q6H PRN PRN Reason: Heartburn/Nausea Amphetamine/Dextroamphetamine (Dextroamphetamine/Amphetamine Xr 10 Mg Cap.Er.24h) 30 mg PO DAILY@0800 COUNT INCLUDES THE [facility] Last Admin: 12/10/24 08:45 Dose: 30 mg Amphetamine/Dextroamphetamine (Dextroamphetamine/Amphetamine Xr 10 Mg Cap.Er.24h) 20 mg PO DAILY@1300 COUNT INCLUDES THE [facility] Last Admin: 12/09/24 12:51 Dose: 20 mg Clonazepam (Clonazepam 0.5 Mg Tablet) 0.5 mg PO BID PRN PRN Reason: Anxiety Last Admin: 12/09/24 22:25 Dose: 0.5 mg Fluoxetine HCl (Fluoxetine Hcl 20 Mg Capsule) 60 mg PO DAILY COUNT INCLUDES THE [facility] Last Admin: 12/10/24 08:45 Dose: 60 mg Hydroxyzine HCl (Hydroxyzine Hcl 25 Mg Tablet) 25 mg PO Q6H PRN PRN Reason: mild anxiety Last Admin: 12/10/24 06:06 Dose: 25 mg [place] Carbonate ([place] Carbonate Er 300 Mg Tablet.Er) 300 mg PO BID COUNT INCLUDES THE [facility] Last Admin: 12/09/24 20:01 Dose: 300 mg Magnesium Hydroxide (Milk Of Magnesia 30 Ml Oral.Susp) 30 ml PO DAILY PRN PRN Reason: Constipation Nicotine Polacrilex (Nicotine Polacrilex 2 Mg Gum) 4 mg BUCCAL Q2H PRN PRN Reason: Nicotine Cravings Tizanidine HCl (Tizanidine Hcl 4 Mg Tablet) 4 mg PO TID PRN PRN Reason: muscle spasm Last Admin: 12/09/24 22:24 Dose: 4 mg Trazodone HCl (Trazodone Hcl 50 Mg Tablet) 50 mg PO BEDTIME MRX1 PRN PRN Reason: Insomnia Last Admin: 12/10/24 01:43 Dose: 50 mg Valacyclovir HCl (Valacyclovir Hcl 500 Mg Tablet) 500 mg PO DAILY COUNT INCLUDES THE [facility] Last Admin: 12/10/24 08:45 Dose: 500 mg Allergies Allergies Allergy/AdvReac Type Severity Reaction Status Date / Time erythromycin base Allergy Severe PANCREATITI Verified 12/04/24 08:20 [ERYTHROMYCIN BASE] S Penicillins [PCN] Allergy Severe HIVES Verified 12/04/24 08:20 Assessment & Plan Assessment & Plan (1) MDD (major depressive disorder), recurrent episode, moderate: Status: Acute Code(s): F33.1 - Major depressive disorder, recurrent, moderate (2) PTSD (post-traumatic stress disorder): Status: Acute Code(s): F43.10 - Post-traumatic stress disorder, unspecified Plan Patient is a 49-year-old female with history MDD and PTSD who self presented to ER due to suicidal ideation secondary to increased depression. Plan: CV 15 minute safety checks Continue home medications Start: [place] 300mg PO BID Obtain collateral Encourage groups Discharge planning 12/06: Pt continues to report feeling depressed; states suicidal ideation with no plan. denies HI/VH/AH. She reports sleeping well last night. denies any side effects from medications. encouraged to attend groups. Continue current tx plan. 12/07: Keeping to self. laying in bed. not attending groups. Pt continues to report feeling depressed but reports feels she is improving; pt stated, I don't feel super sad or teary anymore. I'm not actively thinking about ways to . I'm not feeling as hopeless. I'm thinking about my son . Pt reports passive suicidal ideation. denies HI/VH/AH. She is requesting to stop taking Latuda; DC latuda. 12/08: Pt reports feeling better today; less blunted during 1:1, joking at times. Pt continues to report passive suicidal ideation. denies HI/VH/AH. denies side effects from stopping latuda. She reports sleeping well. attending some groups. Continue current tx plan. 12/09: Pt reports feeling good today; pt stated, I'm feeling better. I think I'm always going to be depressed because of my daughter passing away and my baseline is that I don't care if I don't wake up in the morning. Pt continues to report passive suicidal ideation. denies HI/VH/AH. [place] level to be drawn tomorrow morning. Pt is hoping to be discharged home on Thursday d/t having to return to work on Thursday. 12/10 the patient reports some improvement but still slightly dysphoric. No new symptoms. Reason for continued inpatient stay Substantial Risk for: inability to function, rapid decompensation and med/psych decompensation Time Spent With Patient Time: Total time managing care of this patient today __20__ minutes.
[2024-12-10 09:01] LABS: Lithium 1.06 mmol/L (0.60-1.20)
[2024-12-10] MEDS: TiZANidine HCL 4 MG TABLET PO ×2 (09:02→20:41)
[2024-12-10 09:05] VITALS: BP 92/61; PULSE 58; RESP 17; TEMP 36.3; O2SAT 98
[2024-12-10 09:05] LABS: Anion Gap 10 (12-20); Blood Urea Nitrogen 8 mg/dL (9-16); Carbon Dioxide 28 mmol/L (22-29); Chloride 106 mmol/L (96-108); Creatinine Clr Calc Pharmacy 68.1; Estimated Glomerular Filt Rate 59; Potassium 4.5 mmol/L (3.3-5.1); Sodium 139 mmol/L (135-145)
[2024-12-10] MEDS: Lithium Carbonate ER 300 MG TABLET.ER PO ×2 (09:11→20:44)
[2024-12-10] MEDS: Dextroamphetamine/Amphetamine XR 10 MG CAP.ER.24H 20 MG PO (13:26)
[2024-12-10] MEDS: clonazePAM 0.5 MG TABLET PO (13:28)
[2024-12-10 19:13] VITALS: BP 106/61; PULSE 65; RESP 18; TEMP 36.4; O2SAT 98
[2024-12-11] MEDS: traZODone HCL 50 MG TABLET PO ×3 (00:11→23:33)
[2024-12-11] MEDS: clonazePAM 0.5 MG TABLET PO ×2 (00:11→14:49)
[2024-12-11] MEDS: hydrOXYzine HCL 25 MG TABLET PO ×2 (05:04→20:22)
[2024-12-11] MEDS: Acetaminophen 325 MG TABLET 975 MG PO ×3 (05:04→20:23)
--- NOTE | 2024-12-11 07:56 | P.PNPSI_ITS ---
Subjective Subjective Date of Service: 12/11/24 Reason For Visit: crisis Interim History: The nursing staff reported the patient had been compliant with medications her affect had been flat. His lithium level was 1.06. She reported the pain in her back and slept 7 hours. On interview I offer her lidocaine patch her back pain but she advocate for opioids. She stated that lidocaine does not work for her Mental Status Exam Mental Status Exam Patient Appearance: Appropriate Patient Orientation: Person Level of Consciousness: Awake Patient Behavior: Guarded and Passive Mood Description: Withdrawn Affect Description: Constricted Patient Cognition Impaired: Yes Ability to Follow Directions: Good Speech Pattern: Clear Hallucinations: None Delusions: Paranoid Ideation and Ideas of Reference Thought Process: Distracted and Slowed Thinking Thought Content: positive for Wing and positive for Poverty of Content Judgement: Fair Diagnostics Vital Signs (24Hr): Vital Signs - 24 hr 12/10/24 09:05 12/10/24 19:13 Temperature 97.4 F 97.6 F Pulse Rate 58 65 Respiratory Rate 17 18 Blood Pressure 92/61 106/61 Pulse Oximetry 98 98 Oxygen Delivery Method Room Air Room Air BMI result Body Mass Index 30.5 Labs 12/04/24 08:27 12/10/24 08:40 Labs: Laboratory Results - last 48 hr 12/10/24 08:40 Sodium 139 Potassium 4.5 Chloride 106 Carbon Dioxide 28 Anion Gap 10 L BUN 8 L Creatinine 1.01 Estim Creat Clear Calc 68.1 Estimated GFR 59 [place] 1.06 Medications Medications Current Medications Acetaminophen (Acetaminophen 325 Mg Tablet) 975 mg PO TID PRN PRN Reason: Pain, Moderate(Pain Scale 4-6) Last Admin: 12/11/24 05:04 Dose: 975 mg Al Hydroxide/Mg Hydroxide (Magnesium Hydrox/Alum Hydrox 30 Ml Oral.Susp) 30 ml PO Q6H PRN PRN Reason: Heartburn/Nausea Amphetamine/Dextroamphetamine (Dextroamphetamine/Amphetamine Xr 10 Mg Cap.Er.24h) 30 mg PO DAILY@0800 [facility] Last Admin: 12/10/24 08:45 Dose: 30 mg Amphetamine/Dextroamphetamine (Dextroamphetamine/Amphetamine Xr 10 Mg Cap.Er.24h) 20 mg PO DAILY@1300 [facility] Last Admin: 12/10/24 13:26 Dose: 20 mg Clonazepam (Clonazepam 0.5 Mg Tablet) 0.5 mg PO BID PRN PRN Reason: Anxiety Last Admin: 12/11/24 00:11 Dose: 0.5 mg Fluoxetine HCl (Fluoxetine Hcl 20 Mg Capsule) 60 mg PO DAILY [facility] Last Admin: 12/10/24 08:45 Dose: 60 mg Hydroxyzine HCl (Hydroxyzine Hcl 25 Mg Tablet) 25 mg PO Q6H PRN PRN Reason: mild anxiety Last Admin: 12/11/24 05:04 Dose: 25 mg [place] Carbonate ([place] Carbonate Er 300 Mg Tablet.Er) 300 mg PO BID [facility] Last Admin: 12/10/24 20:44 Dose: 300 mg Magnesium Hydroxide (Milk Of Magnesia 30 Ml Oral.Susp) 30 ml PO DAILY PRN PRN Reason: Constipation Nicotine Polacrilex (Nicotine Polacrilex 2 Mg Gum) 4 mg BUCCAL Q2H PRN PRN Reason: Nicotine Cravings Tizanidine HCl (Tizanidine Hcl 4 Mg Tablet) 4 mg PO TID PRN PRN Reason: muscle spasm Last Admin: 12/10/24 20:41 Dose: 4 mg Trazodone HCl (Trazodone Hcl 50 Mg Tablet) 50 mg PO BEDTIME MRX1 PRN PRN Reason: Insomnia Last Admin: 12/11/24 00:11 Dose: 50 mg Valacyclovir HCl (Valacyclovir Hcl 500 Mg Tablet) 500 mg PO DAILY [facility] Last Admin: 12/10/24 08:45 Dose: 500 mg Allergies Allergies Allergy/AdvReac Type Severity Reaction Status Date / Time erythromycin base Allergy Severe PANCREATITI Verified 12/04/24 08:20 [ERYTHROMYCIN BASE] S Penicillins [PCN] Allergy Severe HIVES Verified 12/04/24 08:20 Assessment & Plan Assessment & Plan (1) MDD (major depressive disorder), recurrent episode, moderate: Status: Acute Code(s): F33.1 - Major depressive disorder, recurrent, moderate (2) PTSD (post-traumatic stress disorder): Status: Acute Code(s): F43.10 - Post-traumatic stress disorder, unspecified Plan Patient is a 49-year-old female with history MDD and PTSD who self presented to ER due to suicidal ideation secondary to increased depression. Plan: CV 15 minute safety checks Continue home medications Start: [place] 300mg PO BID Obtain collateral Encourage groups Discharge planning 12/06: Pt continues to report feeling depressed; states suicidal ideation with no plan. denies HI/VH/AH. She reports sleeping well last night. denies any side effects from medications. encouraged to attend groups. Continue current tx plan. 12/07: Keeping to self. laying in bed. not attending groups. Pt continues to report feeling depressed but reports feels she is improving; pt stated, I don't feel super sad or teary anymore. I'm not actively thinking about ways to . I'm not feeling as hopeless. I'm thinking about my son . Pt reports passive suicidal ideation. denies HI/VH/AH. She is requesting to stop taking Latuda; DC latuda. 12/08: Pt reports feeling better today; less blunted during 1:1, joking at times. Pt continues to report passive suicidal ideation. denies HI/VH/AH. denies side effects from stopping latuda. She reports sleeping well. attending some groups. Continue current tx plan. 12/09: Pt reports feeling good today; pt stated, I'm feeling better. I think I'm always going to be depressed because of my daughter passing away and my baseline is that I don't care if I don't wake up in the morning. Pt continues to report passive suicidal ideation. denies HI/VH/AH. [place] level to be drawn tomorrow morning. Pt is hoping to be discharged home on Thursday d/t having to return to work on Thursday. 12/10 the patient reports some improvement but still slightly dysphoric. No new symptoms. 12/11 keep same treatment, we are offering lidocaine patch but she refused. Reason for continued inpatient stay Substantial Risk for: inability to function, rapid decompensation and med/psych decompensation Time Spent With Patient Time: Total time managing care of this patient today __20__ minutes.
[2024-12-11 08:00] VITALS: BP 87/53; PULSE 60; RESP 16; TEMP 36.6; O2SAT 99
[2024-12-11] MEDS: Lithium Carbonate ER 300 MG TABLET.ER PO ×2 (08:42→20:23)
[2024-12-11] MEDS: valACYclovir HCL 500 MG TABLET PO (08:42)
[2024-12-11] MEDS: FLUoxetine HCl 20 MG CAPSULE 60 MG PO (08:42)
[2024-12-11] MEDS: Dextroamphetamine/Amphetamine XR 10 MG CAP.ER.24H 30 MG PO (08:42)
[2024-12-11] MEDS: TiZANidine HCL 4 MG TABLET PO ×2 (08:48→23:33)
[2024-12-11] MEDS: Dextroamphetamine/Amphetamine XR 10 MG CAP.ER.24H 20 MG PO (13:32)
[2024-12-11 14:00] VITALS: BP 105/55; PULSE 64
[2024-12-11 20:00] VITALS: BP 101/65; PULSE 59; RESP 16; TEMP 36.8; O2SAT 100
[2024-12-12] MEDS: clonazePAM 0.5 MG TABLET PO (05:17)
[2024-12-12 08:48] VITALS: BP 95/58; PULSE 80; RESP 14; TEMP 36.1; O2SAT 97
[2024-12-12] MEDS: Lithium Carbonate ER 300 MG TABLET.ER PO (08:51)
[2024-12-12] MEDS: valACYclovir HCL 500 MG TABLET PO (08:51)
[2024-12-12] MEDS: TiZANidine HCL 4 MG TABLET PO (08:51)
[2024-12-12] MEDS: Dextroamphetamine/Amphetamine XR 10 MG CAP.ER.24H 30 MG PO (08:52)
[2024-12-12] MEDS: FLUoxetine HCl 20 MG CAPSULE 60 MG PO (08:52)
--- NOTE | 2024-12-12 10:34 | P.DS_ITS ---
DS: Providers Provider Date of Service: 12/12/24 Date of admission: 12/05/24 12:13 Date of discharge: 12/12/24 Primary care physician: Betito Rico PA-C Admitting clinician: Shikha Booth Attending physician on admission: Richard Wesley Attending physician on discharge: Richard Wesley Discharging clinician: Shikha Booth DS: Diagnosis Discharge Diagnosis (1) MDD (major depressive disorder), recurrent episode, moderate: Status: Acute (2) PTSD (post-traumatic stress disorder): Status: Acute DS: Medications Discharge Medications Home Medications: Home Medications ?Medication ?Instructions ?Recorded ?Confirmed dextroamphetamine-amphetamine ER 1 cap PO DAILY@0800 07/23/23 12/04/24 30 mg 24hr capsule,extend release clonazepam 0.5 mg tablet 0.5 mg PO BID PRN Anxiety 12/04/24 12/04/24 lurasidone 20 mg tablet 20 mg PO BEDTIME 12/04/24 12/04/24 tizanidine 4 mg tablet 4 mg PO TID PRN muscle spasm 12/04/24 12/04/24 trazodone 50 mg tablet 100 mg PO BEDTIME Insomnia 12/04/24 12/04/24 Previous Rx's ?Medication ?Instructions ?Recorded fluoxetine 20 mg capsule 60 mg (3 x 20 mg) PO DAILY 30 days 07/30/23 #90 caps valacyclovir 500 mg tablet 500 mg PO DAILY 90 days #90 tabs 08/29/24 Mental Status Exam Mental Status Exam Narrative: Pt is alert and oriented; behavior is cooperative, calm; dressed in casual a ttire; mood is described as good ; eye contact appropriate; Speech is normal rate, volume and not pressured; thought process is organized; Thought content is on tx; denies SI/HI/VH/AH. Data Data Completed and Pending Completed studies during hospitalization [Text1]: 12/05/24 12/05/24 12/06/24 14:04 16:30 07:31 Sodium 139 Potassium 4.3 Chloride 109 H Carbon Dioxide 25 Anion Gap 9 L BUN 10 Creatinine 0.82 Estim Creat Clear Calc 84.5 Estimated GFR > 60 Random Glucose 110 Calcium 8.6 Total Bilirubin 0.6 AST 21 ALT 14 Alkaline Phosphatase 75 Total Protein 7.0 Albumin 3.6 Triglycerides 78 Cholesterol 193 LDL Cholesterol, Calc 131 H HDL Cholesterol 47 Urine Color Yellow Urine Appearance Clear Urine pH 6.5 Ur Specific [place] 1.015 Urine Protein Negative Urine Glucose (UA) Negative Urine Ketones Negative Urine Blood Negative Urine Nitrite Negative Ur Leukocyte Esterase Large (3+) H Urine RBC 0-2 Urine WBC 21-50 H Ur Squamous Epith Cells 6-10 Urine Bacteria 3+ Hyaline Casts 3-5 Urine Test NEGATIVE [place] 12/10/24 08:40 Sodium 139 Potassium 4.5 Chloride 106 Carbon Dioxide 28 Anion Gap 10 L BUN 8 L Creatinine 1.01 Estim Creat Clear Calc 68.1 Estimated GFR 59 Random Glucose Calcium Total Bilirubin AST ALT Alkaline Phosphatase Total Protein Albumin Triglycerides Cholesterol LDL Cholesterol, Calc HDL Cholesterol Urine Color Urine Appearance Urine pH Ur Specific [place] Urine Protein Urine Glucose (UA) Urine Ketones Urine Blood Urine Nitrite Ur Leukocyte Esterase Urine RBC Urine WBC Ur Squamous Epith Cells Urine Bacteria Hyaline Casts Urine Test [place] 1.06 DS: Summary Hospital Course Hospital Course: Patient is a 49-year-old female with history MDD and PTSD who self presented to ER due to suicidal ideation secondary to increased depression. Per crisis report, patient reports suicidal ideation and increased depression. She states having a recent change in medications. History of suicide attempts, 1 requiring intubation. Was hospitalized at [facility] in 2022 after her adult daughter . She also had a suicide attempt after her grandmother in 2020; She was intubated during that attempt. History of multiple inpatient psychiatric hospitalizations. History of self-injurious behavior via cutting and hitting self. Patient reports marijuana use daily and sporadic use of opiates that she reports taking a friend's due to chronic pain. Utox positive for opiates, oxycodone, amphetamines and marijuana. Patient reports she feels her medications are not working. She reported suicidal ideation but did not want to disclose a plan. denies HI/VH/AH. She reports poor sleep. During admission assessment, patient presents alert and oriented x3. Calm and cooperative. Patient reports increased depression; patient stated, I'm always depressed. Since my daughter it has been worse. I don't feel like doing life anymore. I don't see the point in any of this . Patient reports history of depression and suicidal ideation since the age of 20. She reports multiple suicide attempts via overdosing on prescribed medications. History of cutting and hitting self but states she has not done this in a few years. She reports being medication compliant. Patient reports at baseline she still feels depressed but just not suicidal . She reports difficulty falling and staying asleep. Denies HI/VH/AH. Patient reports smoking marijuana daily but denies any other substance use. Discussed medications; risks/benefits reviewed of lithium. Patient agreed to trial. T/W spoke to outpatient prescriber, Dotty Gallardo, who reports patient is having a difficult time accepting the of her daughter to alcoholism. She reports patient states that she stops her medications at times to harm self and cause discomfort. Reports history of borderline personality traits. Discussed starting patient on lithium. Plan: CV 15 minute safety checks Continue home medications Start: [place] 300mg PO BID Obtain collateral Encourage groups Discharge planning Pt continues to report feeling depressed; states suicidal ideation with no plan. denies HI/VH/AH. She reports sleeping well last night. denies any side effects from medications. encouraged to attend groups. Continue current tx plan. Keeping to self. laying in bed. not attending groups. Pt continues to report feeling depressed but reports feels she is improving; pt stated, I don't feel super sad or teary anymore. I'm not actively thinking about ways to . I'm not feeling as hopeless. I'm thinking about my son . Pt reports passive suicidal ideation. denies HI/VH/AH. She is requesting to stop taking Latuda; DC latuda. Pt reports feeling better today; less blunted during 1:1, joking at times. Pt continues to report passive suicidal ideation. denies HI/VH/AH. denies side effects from stopping latuda. She reports sleeping well. attending some groups. Continue current tx plan. Pt reports feeling good today; pt stated, I'm feeling better. I think I'm always going to be depressed because of my daughter passing away and my baseline is that I don't care if I don't wake up in the morning. Pt continues to report passive suicidal ideation. denies HI/VH/AH. [place] level to be drawn tomorrow morning. Pt is hoping to be discharged home on Thursday d/t having to return to work on Thursday. [place] level 1.06 on 12/10/24. Pt reports feeling good today; pt stated, I feel like I'm in control of my emotions. I plan on going back to work tomorrow. The people I work with are supportive and we all hang out outside of work . denies SI/HI/VH/AH. Pt reports she plans on following up with her outpatient providers. Status at Discharge Cognitive/behavioral status at discharge: Patient has insight and demonstrates good judgment in terms of wanting to pursue treatment. Patient has a safety plan that includes presenting to the closest ER or calling 911 if feeling unsafe. Functional status at discharge: independent ambulation Overall status at discharge: patient is back to baseline Time Spent with Patient Time attestation: Total time managing care of this patient today __20__ minutes. Time spent: Less than 30 minutes Discharge Plan Discharge Anticipated Discharge Date/Time: 12/12/24 11:30 Patient Disposition: Home, Self-Care Discharge Diagnosis: MDD, PTSD Referrals: Psych Prescriber: Dotty Gallardo [Other] - 12/19/24 12:40 pm (Appointment is in person at the office ) Therapist: Anahi ([facility]) [Other] - 1 Week (Anahi was asked to call you to schedule your next appointment ) Betito Rico PA-C [Primary Care Provider] - 1 Week (12-12-24 12-12-24 Your primary care physicians office has been notified of your discharge and will be contacting you directly with your follow up appt date and time.) Discharge Medications: New dextroamphetamine-amphetamine [Adderall XR] 10 mg Capsule,Extended Release 24hr 20 mg PO DAILY@1300 Qty: 0 0RF Rx Instructions: Partial Fill upon patient request. lithium carbonate 300 mg Tablet Extended Release 300 mg PO BID 7 Days Qty: 14 0RF Continued dextroamphetamine-amphetamine 30 mg capsule,extended release 24hr 1 cap PO DAILY@0800 fluoxetine 20 mg Capsule 60 mg PO DAILY 30 Days Qty: 90 0RF trazodone 50 mg tablet 100 mg PO BEDTIME clonazepam 0.5 mg tablet 0.5 mg PO BID PRN (Reason: Anxiety) tizanidine 4 mg tablet 4 mg PO TID PRN (Reason: muscle spasm) valacyclovir 500 mg tablet 500 mg PO DAILY 90 Days Qty: 90 3RF Discontinued lurasidone 20 mg tablet 20 mg PO BEDTIME Discharge Orders: Discharge Order (Routine); Ordered 12/12/24 Ordered By: Shikha Booth Diet: Regular diet Activity on Discharge: As tolerated Stand Alone Forms: Patient Portal Discharge page, Community Support Print Language: Slovak Care Plan Goals: Maintain mood and safe behaviors Take medications as prescribed Practice coping skills Continue with outpatient providers and reach out to them as needed Health Concerns: Mood stability and behaviors Follow up with outpatient providers regarding monitoring [place] level Plan of Treatment: Follow up with your PCP, psychiatric provider and other outpatient providers regarding above concerns Take medications as prescribed Assessment: Patient has insight and demonstrates good judgment in terms of wanting to pursue treatment. Patient has a safety plan that includes presenting to the closest ER or calling 911 if feeling unsafe. Discharge Date/Time: 12/12/24 11:05
== END 2024-12-12 11:05 | disposition home or self-care (01) | DRG 751 ==
LOC: HO.ED 17:12 → HO.PADLT16 12-05 12:14
PROVIDERS: Admitting Provider Registered Nurse; Emergency Provider Emergency Medicine; PCP Physician Assistant; Responsible Provider Registered Nurse; Visit Provider Psychiatry & Neurology Psychiatry
DX: F33.1 Major depressive disorder, recurrent, moderate (principal); R45.851 Suicidal ideations; F43.10 Post-traumatic stress disorder, unspecified; Z63.4 Disappearance and death of family member; Z79.899 Other long term (current) drug therapy
CPT/HCPCS: 36415; 80051; 80053; 80061; 80143; 80178; 80179; 80307; 81001; 81025; 82565; 84520; 85025; 93005; 99285; S9485

== ENCOUNTER → 2024-12-05 07:50 | Outpatient (BNV) | payer OTHER, SELFPAY | PROVIDERS: Admitting Provider Registered Nurse; Emergency Provider Emergency Medicine; PCP Physician Assistant; Responsible Provider Registered Nurse; Visit Provider Internal Medicine | DX: R00.1 Bradycardia, unspecified (principal) | CPT/HCPCS: 93010 ==

== ENCOUNTER → 2024-12-05 12:13 | Outpatient (BNV) | payer OTHER, SELFPAY | PROVIDERS: Admitting Provider Registered Nurse; Emergency Provider Emergency Medicine; PCP Physician Assistant; Responsible Provider Registered Nurse; Visit Provider Registered Nurse | DX: F33.1 Major depressive disorder, recurrent, moderate (principal); F43.10 Post-traumatic stress disorder, unspecified | CPT/HCPCS: 90792; 99232 ==

== ENCOUNTER 2025-03-07 10:08 | Outpatient (AMB) | payer OTHER, SELFPAY ==
--- NOTE | 2025-03-07 10:10 | MHC.PC.OV ---
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 Required: No Accompanied by: Self / Same As Patient Allergies erythromycin base [ERYTHROMYCIN BASE] Allergy (Severe, Verified 03/07/25 10:25) PANCREATITIS Penicillins [PCN] Allergy (Severe, Verified 03/07/25 10:25) HIVES Medication List - Last Reconciled 03/07/25 by Betito Rico PA-C clonazepam 0.5 mg PO BID PRN dextroamphetamine-amphetamine 10 mg ER (Adderall XR) 20 mg (2 x 10 mg) PO DAILY@1300 dextroamphetamine-amphetamine 30 mg ER 1 cap PO DAILY@0800 fluoxetine 60 mg (3 x 20 mg) PO DAILY 30 days lithium carbonate ER 300 mg PO BID 7 days tizanidine 4 mg PO TID PRN trazodone 100 mg PO BEDTIME valacyclovir 500 mg PO DAILY 90 days Tobacco use date assessed: 10/06/24 Dental Screening Dental Screen Date: 04/27/24 HPI severe fatigue HPI Details Patient is a 49 y/u F here today for for problem visit Patient has a past medical history significant for EDS, fibromyalgia, ADHD, mood disorder. She describes chronic fatigue that has been ongoing for a significant duration, remaining unmitigated by medications such as Adderall and multivitamins. The fatigue is pervasive, affecting daily activities and persisting despite rest during a recent vacation. 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 She also reports chronic right hip instability and pain. 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 The current issue involves a feeling of obstruction or tissue entrapment in the right hip, limiting her range of motion and causing pain, especially when turning. The patient has a complex psychiatric history and is currently on a regimen including lithium, fluoxetine, trazodone, Adderall, and clonazepam, with a recent switch from Abilify due to severe side effects, including suicidal thoughts. A history of low heart rates is corroborated by past monitoring, and there is a concern for sleep apnea, as she was diagnosed in the past but has not complied with CPAP therapy. FOR[facility]LY [facility], [facility] Medical History Feeling suicidal Depression Osteoarthritis Depression GERD (gastroesophageal reflux disease) Atypical chest pain GEORGES (obstructive sleep apnea) On anticoagulant therapy Menorrhagia Pulmonary embolism Syncope and collapse Subchondral sclerosis EDS (Juan-Danlos syndrome) Surgical History Hx of colonoscopy Hx of hand surgery History of endometrial ablation H/O bilateral breast reduction surgery Hx of section History of back surgery H/O knee surgery H/O shoulder surgery (~02/2019) Family History Paternal Aunt Breast cancer Father Diabetes High cholesterol HTN (hypertension) Maternal Uncle Stroke Maternal Grandfather Emphysema lung Lung cancer Maternal Grandmother Asthma Son Asthma Social History Household Members: Children Housing: Apartment Do you presently have visiting nurse or other home services: No Alcohol intake: never Comment: stated was minimal Patient Tobacco Use Status: Never used Tobacco Tobacco use type: Cigarette e-Cigarette/Vaping Use: Never Used Second Hand Smoke Exposure: No Substance Use Type: Marijuana Advance Directives Date on File: 08/31/20 service: No Current occupational status: employed Current occupation: [employer] Sexual 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/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 Gender identity: Female Cognitive needs: No Hearing needs: No Vision needs: No Female Reproductive History Menstrual Age of Menarche: 14 Questionnaire PHQ-9 Over the last 2 weeks, how often have you been bothered by any of the following problems? 1. Little interest or pleasure in doing things: nearly every day 2. Feeling down, depressed, or hopeless: nearly every day 3. Trouble falling or staying asleep, or sleeping too much: nearly every day 4. Feeling tired or having little energy: nearly every day 5. Poor appetite or overeating: nearly every day 6. Feeling bad about yourself - or that you are a failure or have let yourself or your family down: nearly every day 7. Trouble concentrating on things, such as reading the newspaper or watching television: nearly every day 8. Moving or speaking so slowly that other people could have noticed. Or the opposite - being so fidgety or restless that you have been moving around a lot more than usual: nearly every day 9. Thoughts that you would be better off or of hurting yourself in some way: more than half the days Total score: 26 Depression Screening Interpretation: Positive Depression Screening Follow-up: Existing condition and In treatment Depression Screening Done: Yes 56626 - PHQ-9 Billing: Yes Source: Developed by Drs. Joseluis Chew, Tameka Lane, Jose J Josue and colleagues, with an educational ligia from [employer]. Thrive Questionnaire Date Thrive assessed: 03/07/25 I am a: Patient What is your living situation today?: I have a steady place to live Within the past 12 months, did the food you bought not last and you didn't have the money to get more?: Never true Within the past 12 months, did you worry whether your food would run out before you got money to buy more?: Never true Do you have trouble paying for medicines?: No Do you have trouble getting transportation to medical appointments?: No Do you have trouble paying your heating and electricity bill?: No Do you have trouble taking care of your child, family member or friend?: No Do you have trouble with day-to-day activities such as bathing, preparing meals, shopping, managing finances, etc.?: No Are you currently unemployed and looking for a job?: No Are you interested in more education?: No Please select the resources that you would like help with: None Currently or been in a relationship where the following occur: I choose not to answer THRIVE Score: 0 AUDIT C Alcohol Use Questionnaire (AUDIT-C) 1. How often do you have a drink containing alcohol?: Monthly or less 2. How many drinks containing alcohol do you have on a typical day when you are drinking?: 1 or 2 3. How often do you have six or more drinks on one occasion?: Never Total Score: 1 ARLENE-7 AMB Questionnaire ARLENE-7 Date ARLENE - 7 assessed: 03/07/25 Feeling nervous, anxious, or on edge: 1 = Several days Not being able to stop or control worryin = Several days Worrying too much about different things: 1 = Several days Trouble relaxin = Nearly every day Being so restless that it is hard to sit still: 1 = Several days Becoming easily annoyed or irritable: 1 = Several days Feeling afraid as if something awful might happen: 0 = Not at all Total ARLENE-7 score (0-4 normal; 5-9 mild; 10-14 moderate; 15-21 severe): 8 Source: Developed by Drs. Joseluis Chew, Tameka Lane, Jose J Josue and colleagues, with an educational ligia from [employer]. ARLENE-7 Assessment Billing ARLENE-7 Assessment Tool: ARLENE-7 Assessment 29601 Review of Systems Const Reports fatigue, Denies headache(s), Reports lethargy and Reports malaise Eyes Denies loss of vision ENT Denies vertigo, Denies dizziness, Denies headache(s) and Denies sore throat Card Denies chest pain, Denies leg edema and Denies lightheadedness Resp Denies cough, Denies hemoptysis and Denies wheezing GI Denies abdominal pain, Denies melena, Denies constipation, Denies diarrhea and Denies vomiting Denies urinary frequency, Denies dysuria and Denies urinary urgency Musc Denies arthralgias, Denies joint swelling, Denies numbness and Denies tingling Neuro Denies Abnormal speech present, Denies behavioral changes, Denies vertigo, Denies dizziness, Denies headache(s), Denies loss of vision, Denies memory loss, Denies numbness and Denies tingling Psych Denies anxiety, Denies behavioral changes, Denies depression, Denies memory loss and Denies panic attacks Endo Reports fatigue Michael/Lymph Denies easy bleeding and Denies easy bruising Aller/Immun Denies wheezing Physical exam (Primary Care) Vital Signs: Last Vital Signs Pulse 70 03/07/25 10:11 BP 106/74 03/07/25 10:11 Pulse Ox 98 03/07/25 10:11 Oxygen Delivery Method Room Air 03/07/25 10:11 BMI result Body Mass Index 29.8 Tobacco/Smoking Status: Tobacco use Status Tobacco use date assessed 10/06/24 03/07/25 10:15 Patient Tobacco Use Status Never used Tobacco 03/07/25 10:15 Tobacco use type Cigarette 03/07/25 10:15 e-Cigarette/Vaping Use Never Used 03/07/25 10:15 PHQ-9: PHQ-9 Score PHQ-9: Total score 26 03/07/25 10:48 Depression Screening Interpretation: Positive Depression Screening Follow-up: Existing condition and In treatment Thrive Assessment: Date of Thrive Assessment Date Thrive assessed 03/07/25 03/07/25 10:15 Currently or been in a relationship where the following occur: I choose not to answer Const General: healthy appearing, no acute distress, alert and awake Nutritional Appearance: well nourished Orientation/consciousness: oriented to person, oriented to place and oriented to time HENMT Ears: TM's normal bilaterally General nose exam: Normal nasal mucous membranes and turbinates present Eyes Conjunctivae: conjunctivae normal Sclerae: sclerae normal Pupils: Equal, round and reactive pupils present Neck Neck: Yes no lymphadenopathy and Yes no JVD Thyroid: Thyroid normal Carotids: no bruits Resp Effort & Inspection: normal respiratory effort and not tachypneic Auscultation: no crackles, no rales, no rhonchi and no wheezes Cardio Rate: regular rate Rhythm: regular rhythm Heart sounds: no murmurs and normal S1 and S2 GI Palpation (GI): Soft to palpation, nontender, no hepatomegaly and no splenomegaly Auscultation: normal bowel sounds Skin General skin exam: no rashes or lesions noted and dry skin Neuro General: oriented to person, oriented to place and oriented to time Cranial nerves: Yes Equal, round and reactive pupils present Speech: No Abnormal speech present Gait exam (Neuro): Normal gait present Motor exam (neuro): no tremor noted Extrem Right upper extremity: full ROM Left upper extremity: full ROM Right lower extremity: full ROM; no edema Left lower extremity: full ROM; no edema Psych Mental Status: mental status grossly normal Speech and movement: Normal speech and movement present Affect: normal affect Attitude: cooperative Thought process: Normal thought process present Coding Level of Care Code Est Pt Level 4 (39256) Diagnoses Chronic fatigue R53.82 Idiopathic hypotension I95.0 Hypotension type: idiopathic hypotension Right hip pain M25.551 GEORGES (obstructive sleep apnea) G47.33 Additional Codes ARLENE-7 Assessment Billing - ARLENE-7 Assessment Tool: ARLENE-7 Assessment 98346 ([id number]) PHQ-9 - 30342 - PHQ-9 Billing: Yes ([id number]) Assessment & Plan Assessment & Plan (1) Chronic fatigue: Code(s): R53.82 - Chronic fatigue, unspecified Category: Medical Plan: Comprehensively created a plan addressing potential causes of fatigue including lab work and evaluation of psychiatric medication side effects, and monitoring for lithium toxicity. Echocardiogram and home sleep study were ordered. (2) Hypotension: Code(s): I95.9 - Hypotension, unspecified Category: Medical Qualifiers: Hypotension type: idiopathic hypotension Qualified Code(s): I95.0 - Idiopathic hypotension Plan: Noted chronic hypotension. EKG from November 2024 showed sinus bradycardia. In the setting of low blood pressures will send for echocardiogram to evaluate for structural heart disease. (3) Right hip pain: Code(s): M25.551 - Pain in right hip Category: Medical Plan: Ordered x-ray and planning MRI for hip pain. Physical therapy consultation will be pursued, ensuring expertise in Juan-Danlos treatment. (4) GEORGES (obstructive sleep apnea): Comment: Had been treated with CPAP in the past but has not used recently because of change in insurance and not having supplies Code(s): G47.33 - Obstructive sleep apnea (adult) (pediatric) Category: Medical Plan: Reassessing sleep apnea via a home sleep study to consider CPAP therapy, utilizing advanced, smaller CPAP devices if necessary. Orders: Orders Vitamin B12 and Folate 03/07/25 E53.8 - Deficiency of other specified B group vitamins, R53.82 - Chronic fatigue, unspecified Vitamin D 25-OH Total 03/07/25 R53.82 - Chronic fatigue, unspecified Comprehensive Met. Panel 03/07/25 R53.82 - Chronic fatigue, unspecified XR hip RT min 2V 03/07/25 M25.551 - Pain in right hip RT home sleep study 03/07/25 G47.33 - Obstructive sleep apnea (adult) (pediatric) Lipid Panel 03/07/25 R53.82 - Chronic fatigue, unspecified Complete Blood Count no Diff 03/07/25 R53.82 - Chronic fatigue, unspecified Wat[place] 03/07/25 F32.2 - Major depressive disorder, single episode, severe without psychotic features CA echo transthoracic complete 03/07/25 I95.9 - Hypotension, unspecified, R53.82 - Chronic fatigue, unspecified TSH reflex Free T4 03/07/25 R53.82 - Chronic fatigue, unspecified
[2025-03-07 10:11] VITALS: BP 106/74; PULSE 70; O2SAT 98; BMI 29.8
--- OUTSIDE RECORDS SUMMARY | 2025-03-07 10:51 | XMS_ITS ---
Author Organization [facility] [address] Address [address] [place] [address] Care Team Providers Care Head Sampler Name Role Phone APRIL MILES Primary Care Provider UnavailRizwana Atwood Unavailable [phone] Allergies Allergen (clinical drug ingredient) Drug/Non Drug Allergy documented on EMR Reaction Allergy Type Onset Date Status erythromycin Erythromycin pancreatitis Drug Allergy Active Penicillin hives Drug Allergy Active REASON FOR VISIT Patient seen in office for weight management consult with [facility]. Medications Medication SIG (Take, Route, Frequency, Duration) Notes Start Date End Date Status traZODone HCl 50 MG TAKE 2 TABLETS BY MO UTH EVERY DAY AT BEDTIME Oral for 30 Days Active valACYclovir HCl 500 MG Oral for 90 Days Active [place] Carbonate ER 300 MG Oral for 90 Days Active Pregabalin 300 MG Oral for 30 Days Active FLUoxetine HCl 20 MG TAKE 3 CAPSULES BY MOUTH EVERY DAY Oral for 90 Days Active Encounters Encounter Location Date Provider Diagnosis [facility] [address] [address] 02/13/2025 Rizwana Carias Plan Of Treatment No Information Progress Notes * Deb MALCOLMDOB:1975 ([age] yo F)Acc No.[id number]:02/13/2025 Patient:?Deb MALCOLM Provider:?Rizwana Carias PA-C :1975???Age:49 Y???Sex:Female D ate:02/13/2025 Address:[address] [place], [place] Pcp:APRIL MILES Subjective: * Chief Complaints: * ???1. Patient seen in office for weight management consult with [facility].. * Medical History:?Weight gain /loss, Arthritis, Anxiety, Depression. * Hospitalization/Major Diagno stic Procedure:?Denies Past Hospitalization. * Family History:?Father: anil kruger 71 yrs.?Mother: alive 65 yrs.?2 brother(s) - healthy. .? 4 children. * Social History:?Pt denies having any concerns with current living situation denies all tobacco use recreational drug use- quit 01/16/2025. * Medications:?Taking [place] Carbonate ER 300 MG Tablet Extended Release Oral , Taking valACYclovir HCl 500 MG Tablet Oral , Taking traZODone HCl 50 MG Tablet TAKE 2 TABLETS BY MOUTH EVERY DAY AT BEDTIME Oral , Taking FLUoxetine HCl 20 MG Capsule TAKE 3 CAPSULES BY MOUTH EVERY DAY Oral , Taking Pregabalin 300 MG Capsule Oral , Medication List reviewed and reconciled with the patient * Allergies:?Penicillin: hives , Erythromycin: pancreatitis. Objective: * Vitals:? Assessment: Plan: * Treatment: * Procedure Codes:?55312 NO SH OW OFFICE VISIT * Images: Billing Information: * Visit Code:? * Procedure Codes:? 72976 NO SHOW OFFICE VISIT. * Electronic signature of Rizwana Carias PA-C on 03/07/2025 at 10:51 AM EDT Sign off status: Pending * Provider:?Rizwana Carias PA-C Date:?2024 Generated for Tacho macario/Flavio/Paulette on:?03/07/2025 10:51 AM EDT
== END 2025-03-07 11:32 | disposition home or self-care (01) ==
LOC: HO.HMCH 10:09
PROVIDERS: PCP Physician Assistant; Visit Provider Physician Assistant
DX: R53.82 Chronic fatigue, unspecified (principal); I95.0 Idiopathic hypotension; M25.551 Pain in right hip; G47.33 Obstructive sleep apnea (adult) (pediatric)

== ENCOUNTER → 2025-03-07 10:08 | Outpatient (BNVA) | payer OTHER, SELFPAY | PROVIDERS: PCP Physician Assistant; Visit Provider Physician Assistant | DX: M79.7 Fibromyalgia (principal); F90.9 Attention-deficit hyperactivity disorder, unspecified type; R53.83 Other fatigue; R53.82 Chronic fatigue, unspecified; M25.551 Pain in right hip; M25.351 Other instability, right hip; I95.0 Idiopathic hypotension; G47.33 Obstructive sleep apnea (adult) (pediatric); E53.8 Deficiency of other specified B group vitamins | CPT/HCPCS: 96127 ==

== ENCOUNTER 2025-03-15 07:05 | Outpatient (REF) | payer OTHER, SELFPAY ==
--- NOTE | ~2025-03-15 | XR_ITS ---
EXAMINATION: XR HIP, RIGHT CLINICAL INFORMATION: M25.551 - Pain in right hip COMPARISON: None available. TECHNIQUE: Two views of the right hip. FINDINGS: Right hip joint is unremarkable. Joint space is preserved. No osseous metastases are identified. XR/XR hip RT min 2V IMPRESSION: Unremarkable right hip. Electronically signed by: Anthony Vargas MD 03/15/2025 05:22 PM EDT
[2025-03-15 07:49] LABS: Hematocrit 38.6 % (37.0-47.0); Hemoglobin 12.4 g/dl (12.0-16.0); Mean Corpuscular HGB Conc 32.1 g/dl (31.0-35.0); Mean Corpuscular Hemoglobin 29.2 pg (27.0-33.0); Mean Platelet Volume 9.2 fL (9.4-12.3); Platelet Count 336 X10*3/uL (160-400); Red Blood Count 4.24 X10*6/uL (4.20-5.50); Red Cell Distribution Width 13.3 % (11.0-16.0); White Blood Count 8.3 X10*3/uL (4.8-10.8)
[2025-03-15 08:29] LABS: Anion Gap 17 (12-20)
[2025-03-15 08:35] LABS: Alanine Aminotransferase 24 U/L (0-31); Albumin Level 4.3 g/dL (3.5-5.0); Aspartate Amino Transferase 36 U/L (5-31); Bilirubin Total 0.3 mg/dL (0.0-1.0); Blood Urea Nitrogen 13 mg/dL (9-16); Calcium 9.1 mg/dL (8.4-10.2); Carbon Dioxide 24 mmol/L (22-29); Chloride 102 mmol/L (96-108); Cholesterol 190 mg/dL (<200); Estimated Glomerular Filt Rate > 60; Glucose Random 140 mg/dL (60-115); HDL Cholesterol 50 mg/dL (>40); LDL Cholesterol Calculated 121 mg/dL (<100); Potassium 3.9 mmol/L (3.3-5.1); Sodium 139 mmol/L (135-145); Total Protein 7.8 g/dL (6.5-8.0); Triglycerides 99 mg/dL (<150)
[2025-03-15 08:57] LABS: TSH reflex Free T4 1.72 uIU/mL (0.32-4.0); Vitamin D 25-OH Total 52.1 ng/mL (>30)
[2025-03-15 09:00] LABS: Folate 10.5 ng/mL (> or = 4.0); Vitamin B12 881 pg/mL (200-900)
[2025-03-15 13:07] LABS: Alkaline Phosphatase 91 U/L (39-117)
[2025-03-15 14:09] LABS: Lithium < 0.10 mmol/L (0.60-1.20)
== END 2025-03-15 07:06 | disposition home or self-care (01) ==
LOC: HO.LAB 07:05
PROVIDERS: PCP Physician Assistant; Visit Provider Physician Assistant
DX: F32.2 Major depressive disorder, single episode, severe without psychotic features (principal); R53.82 Chronic fatigue, unspecified; E53.8 Deficiency of other specified B group vitamins; M25.551 Pain in right hip
CPT/HCPCS: 36415; 73502; 80053; 80061; 80178; 82306; 82607; 82746; 84443; 85027

== ENCOUNTER → 2025-03-15 07:27 | Outpatient (BNV) | payer OTHER, SELFPAY | PROVIDERS: PCP Physician Assistant; Visit Provider Radiology Diagnostic Radiology | DX: M25.551 Pain in right hip (principal) | CPT/HCPCS: 73502 ==

== ENCOUNTER 2025-06-15 08:31 | Outpatient (REF) | payer OTHER, SELFPAY ==
--- OUTSIDE RECORDS SUMMARY | 2025-06-15 09:00 | XMS_ITS | Continuity of Care Document ---
Author Organization [email or web address] Address [address] [address] Insurance Providers Payer Plan Claims Address Claims Phone Policy Number Group Number Relation Employer Guarantor Name Guarantor Guarantor Address Guarantor Phone EMILY DAVID FRANCISCA Rodriguez PLAN [address] [address], [place] [address] Schedule [employer]vy[employer] O [id number] Self Deb Malcolm 1975 [address] [place] [id number] [facility], [address], [place] [address] tel:[phone] [id number] [id number] Self Deb Malcolm 1975 [address] [place] [id number] EMILY Carlo BRUNERHong [employer] [address] [address], [place] [address] tel:[phone] Self Deb Malcolm 1975 [address] [place] [address] Problems Condition ICD9 code ICD10 code SNOMED code Start Date End Date S tatus Encounter for screening for other metabolic disorders Z13.228 Results No Results Allergies, adverse reactions, alerts No known allergies and adverse reactions Medications No administered medications reported Vital Signs No vital signs reported Social History No smoking Hx information available
--- OUTSIDE RECORDS SUMMARY | 2025-06-15 09:01 | XMS_ITS | Patient Health Record ---
Author Organization [facility] [address] Address [address] [place] [address] Care Team Providers Care Coating Machine Feeder Name Role Phone APRIL MILES Primary Care Provider Unavailab Jacquie Card Unavailable [phone] LAURI LEIVA Unavailable [phone] Allergies Allergen (clinical drug ingredient) Drug/Non Drug Allergy documented on EMR Reaction Allergy Type Onset Date Status azithromycin Azithromycin pancreatitis Drug Allergy Active Penicillin hives Drug Allergy Active Results Component Value Reference Range Notes EKG (Not yet reviewed by pro vider) Interpretation: Performing Lab: Notes/Report: ECGDiastolicBP 76 ECGHr 60 ECGPRInterval 136 ECGPWaveAxis 32 ECGQRSDuration 82 ECGQrsWaveAxis 44 ECGQTcInterval 386 ECGQTInterval 386 ECGSystolicBP 118 ECGTWaveAxis 59 RR_DiastolicBP 0 RR_MaxRRInterval 0 RR_MeanHR 0 RR_MeanRRInterval 0 RR_MinRRInterval 0 RR_NumBeats 0 RR_NumNormalBeats 0 RR_SystolicBP 0 Reason For Referral Reason sleep medicine servi milena Diagnosis 1 Obstructive sleep ap aida (G47.33) Referral Organization [facility] Referring Provider First Name Jacquie Referring Provider Last Name Ted Referring Provider Speciality Internal M edicine Referred Provider Specialty Pulmonology General Notes Shweta Kirkland 08/2025 08:34:17 AM > referral form faxed to [phone] and pt given phone [phone] Clinical Notes Sparkle Reynolds 02:49:32 PM > I called the office, and they informed me that they reached out to the patient three times and even sent a letter, but have not received a response. Referral Priority Routine Medications Medication SIG (Take, Route, Fr equency, Duration) Notes Start Date End Date Status Phentermine HCl 15 MG 1 capsule Orally O nce a day; Duration: 30 days 05/22/2025 Active Wegovy 0.25 MG/0.5ML 0.5 mL Subcutaneous Active Phentermine HCl 15 MG 1 capsule Orally O nce a day; Duration: 30 days 04/19/2025 Active Ondansetron 4 MG 1 tablet on the tongue and allow to dissolve Orally Once a day; Duration: 30 days As needed nausea 05/08/2025 Active Social History Tobacco Use: Social History Observation Description Date Details (start date - stop date) Never Smoker NA - NA Tobacco Control (Standard) Question Answer Notes Tobacco use: Nonsmoker AUDIT-C (Standard) Question Answer Notes Did you have a drink contain ing alcohol in the past year? Yes How often did you have a dri nk containing alcohol in the past year? 2 to 4 times a month (2 points) How many drinks did you have on a typical day when you were drinking in the past year? 1 or 2 drinks (0 point) How often did you have six o r more drinks on one occasion in the past year? Never (0 point) Points 2 Interpretation Negative Section Notes: etoh: infrequent tobacco: never drug use: marijuana etoh: infrequent tobacco: never drug use: marijuana etoh: infrequent tobacco: never drug use: marijuana Problems Problem Type SNOMED Code ICD Code Onset Dates Problem Status W/U Status Risk Notes Problem Obstructive sleep apnea (35954677) Obstructive sleep apnea (G47.33) Active confirmed Problem Obese class I (699045447939432 ) BMI 33.0-33.9,adult (Z68.33) Active confirmed Problem Body mass index 30.00 to 34.99 (551937968941070 ) BMI 31.0-31.9,adult (Z68.31) Active confirmed Problem Depression (751483276) Depression (F32.9) Active confirmed Problem Obesity (676494956) Moderate obesity (E66.9) Active confirmed Vital Signs Heart Rate 81 /min 05/22/2025 Oximetry 90 % 05/22/2025 Blood pressure diastolic 80 mm Hg 05/22/2025 Height 63 in 05/22/2025 Blood pressure systolic 108 mm Hg 05/22/2025 Weight 171.7 lbs 05/22/2025 BMI 30.41 kg/m2 05/22/2025 Encounters Encounter Location Date Provider Diagnosis [facility] [address] 03/17/2025 Jacquie Normoyle Moderate obesity E66 .9 ; BMI 31.0-31.9,adult Z68.31 ; Obstructive sleep apnea G47.33 ; Depression F32.9 and Encounter for examination of blood pressure without abnormal findings Z01.30 [facility] [address] 04/17/2025 Jacquie Normoyle BMI 33.0-33.9,adult Z68.33 ; Moderate obesity E66.9 ; Obstructive sleep apnea G47.33 ; Depression F32.9 and Encounter for examination of blood pressure without abnormal findings Z01.30 [facility] [address] 05/22/2025 Jacquie Normoyle BMI 29.0-29.9,adult Z68.29 ; Obstructive sleep apnea G47.33 ; Moderate obesity E66.9 ; Depression F32.9 and Encounter for examination of blood pressure without abnormal findings Z01.30 [facility] [address] 03/17/2025 Jacquie Normoyle [facility] [address] 03/22/2025 Jacquie Normoyle [facility] [address] 04/19/2025 Jacquie Normoyle [facility] [address] 04/19/2025 Jacquie Normoyle Moderate obesity E66 .[address] [facility] [address] [place] [address] 04/19/2025 Jacuqie Normoyle Moderate obesity E66 .9 [facility] [address] [address] 04/19/2025 LAURI LEIVA Moderate obesity E66 .9 [facility] [address] [facility] [address] [place] [address] 05/02/2025 Jacquie Normoyle [facility] [address] [facility] [address] [place] [address] 05/02/2025 Jacquie Normoyle [facility] [address] [facility] [address] [place] [address] 04/19/2025 Jacquie Normoyle [facility] [address] [facility] [address] [place] [address] 05/05/2025 Jacquie Normoyle Assessments Encounter Date Diagnosis (ICD Code) Assessment Notes Treatment Notes Treatment Clinical Notes Section Notes 03/17/2025 BMI 31.0-31.9,adul t (ICD-10 - Z68.31) Deb is a 49-year-old female with past medical history of GEORGES who presents for weight management consult. Medical history, labs, allergies, medications, and social history reviewed with the patient. Provided education on healthy diet and lifestyle which includes high-protein, low carbohydrate, high-fiber, and a variety of fruits and vegetables. Patient encouraged to exercise with emphasis on resistance training minimum 3 times per week to maintain muscle mass and cardio to burn fat. All patient questions answered. Patient will follow-up in 4 weeks for weight management. #Obesity: 03/17/2025: Weight 177 pounds, BMI 31.35. Patient has tried weight watchers in the past, she utilizes her gym membership and walking pad twice per week. She is encouraged to increase her diet to include 3 meals per day with a goal of 80 to 100 g of protein per day. Discussed oral and injectable medications. Patient is familiar with Zepbound and would like to trial this medication. PA sent today. Plan to start Zepbound 2.5 mg injection weekly. Educated on side effects including constipation, nausea, reflux, hair thinning. Follow-up in 4 weeks. MICC injection given today. #Obstructive sleep apnea: Patient follows with sleep study service in [facility], and is requesting referral to nearby sleep medicine services. She does have a CPAP at home. Continue nocturnal CPAP. Start Zepbound 2.5 mg weekly injections to help with GEORGES. 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 Referral to sleep medicine services placed today #Depression: Patient does have severe depression which is a large barrier to her weight loss. Denies wanting to start medication at this time. Continue following with psychiatry monthly and therapy weekly. Denies any thoughts of hurting self or others at this time. encouraged to call the office if their symptoms worsen or persist. Patient was reassured and welcomed to the practice. We discussed that we stress a hollistic medical approach with emphasis on lifestyle modification. Patient was informed that a healthy lifestyle with exercise and good eating habits can help reduce his risk of medical complications. Patient is explained that obesity increases his risk of diabetes, cardiovascular disease, or organ damage. We spent a lot of time discussing the relationship between food, exercise, sleep, mental health and obesity. Patient was counseled on the importance EATING local, organic food when possible. Patient was educated on clean 15 and dirty dozen. I provided information about reading books called The Food Rules by Ryder Cordero and Eat Fat Get Lean by Dr Hector Milton. Self education is important in the journey for weight management. Patient was offered diagnostic testing/ SECA scale. We want to measure visceral adiposity, advanced body composition, adverse lipids, fatty acid balance, risk for heart disease and atherosclerosis, markers of inflammation and genetic susceptibility. Patient was counseled on weight management and was advised to lose weight using A. Meal Replacement Products Patient was educated on the replacement products called optifast. This is a good way of taking fixed amount of calories. It has been shown in studies to be ineffective weight management tool. This however has to be coupled with lifestyle intervention as well as laboratory data and EKG monitoring. It is impossible to know how a person will tolerate complete meal replacement. The side effects of meal replacement and weight loss could include syncopal attacks, dizziness, gallstones, potential cholecystectomy, possible heart attack and even . The benefits of meal replacement would be potential weight loss but no guarantees can be made. Meal replacement products are not covered by insurance. Once the patient has bought these products we cannot return them B. Lifestyle management which includes several strategies as below 1. Eat a low carbohydrate good fat good protein diet. Eliminate refined carbohydrates from the diet. Limit sugared beverages. Eat local organic when possible. Cook your own meals. Read food labels. Focus on healthy snacks. Portion control and food with low glycemic index 2. Exercise regularly. Try to get at least 6000 steps a day. Use a predominant to track activity level. Consider using apps like 7 minute excercise, Shopsypal, lose it, stick as needed for self-monitoring and weight management. Consider group exercises. Consider hiring a personal vehicle advisor. Regular exercise is castro to sustainable health and prevents as a buffer against weight regain 3. Sleep is most important for healing. Try to sleep at least 6-8 hours a night. A good quality sleep needs a sleep ritual with ideal room temperature of around 68. It might help to take a shower and have no electronics in the room and sleep in a very dark room without artificial light. Start sleep routine and get up early in the morning and go to bed on time. 4. Make a social connection. Surround yourself with positive people with positive energy. Connect with friends and family. 5. Get into the habit of meditating and mindfulness while doing everything. 6. Go outside and connect with nature. C. Prescription medications Patient was educated on the use of prescription medications for medical weight loss. This is a growing list and includes phentermine, Topamax,Qsymia, contrave, belviq and saxenda, wegovy etc. All prescription medications could have side effects including but not limited to kidney stones, seizure disorder cardiac arrhythmias heart attack pancreatitis, GI effects, Etc. Patient was encouraged to read the prescription insert and have coaching with their pharmacist and make an informed decision about taking medication and know that these medications are being prescribed with good intentions and we do not know how a patient would react to her medication. Some medications are FDA approved for weight loss and there is also off label use depending on patient's inability to afford medications in an attempt to lose weight D. Behavioral counseling was done to establish a relationship between food and an mood. Patient was provided information about local counseling and psychiatry and Dr Chambers at [employer]. We would like to cover regular topics and build on low glycemic eating exercise mindful eating, using yoga and meditation along with deep breathing and connecting with friends and family. E. MASS PAT reviewed, Patient's current medications were reviewed and opinion was given on medication that can cause weight gain and can be substituted F. Patient was assessed for risk with obesity including and not limiting to atherosclerosis heart disease stroke kidney disease, restrictive lung disease, irritable bowel syndrome and overall mortality. Risk of developing prediabetes diabetes and metabolic syndrome was discussed G. Therapeutic plan: We have decided to make therapeutic plan which would include choosing wisely on calories restricting portion getting active, tracking weight, getting good quality sleep and working on time management H. Patient will follow up in 4 weeks for weight management Total time spent today was 60 minutes of which greater than 50% was spent on coordinating and counseling Case discussed with collaborating physician Yvette Sexton who reviewed the assessment and plan. Chart, medications, labs, vital signs reviewed. Dictation was accomplished with the use of Dónde voice recognition software, prone to medical misidentifications and grammatical errors. This is unintentional and the practitioner does try to identify and correct these, but some could still be present. Please do not hesitate to contact practitioner for clarification. All questions answered to patients satisfaction. Patient verbalized understanding of diagnosis and treatments explained. To call sooner prior to next visit it any questions/concerns arise. 03/17/2025 Moderate obesity (ICD-10 - E66.9) Deb is a 49-year-old female with past medical history of GEORGES who presents for weight management consult. Medical history, labs, allergies, medications, and social history reviewed with the patient. Provided education on healthy diet and lifestyle which includes high-protein, low carbohydrate, high-fiber, and a variety of fruits and vegetables. Patient encouraged to exercise with emphasis on resistance training minimum 3 times per week to maintain muscle mass and cardio to burn fat. All patient questions answered. Patient will follow-up in 4 weeks for weight management. #Obesity: 03/17/2025: Weight 177 pounds, BMI 31.35. Patient has tried weight watchers in the past, she utilizes her gym membership and walking pad twice per week. She is encouraged to increase her diet to include 3 meals per day with a goal of 80 to 100 g of protein per day. Discussed oral and injectable medications. Patient is familiar with Zepbound and would like to trial this medication. PA sent today. Plan to start Zepbound 2.5 mg injection weekly. Educated on side effects including constipation, nausea, reflux, hair thinning. Follow-up in 4 weeks. MICC injection given today. #Obstructive sleep apnea: Patient follows with sleep study service in [facility], and is requesting referral to nearby sleep medicine services. She does have a CPAP at home. Continue nocturnal CPAP. Start Zepbound 2.5 mg weekly injections to help with GEORGES. 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 Referral to sleep medicine services placed today #Depression: Patient does have severe depression which is a large barrier to her weight loss. Denies wanting to start medication at this time. Continue following with psychiatry monthly and therapy weekly. Denies any thoughts of hurting self or others at this time. encouraged to call the office if their symptoms worsen or persist. Patient was reassured and welcomed to the practice. We discussed that we stress a hollistic medical approach with emphasis on lifestyle modification. Patient was informed that a healthy lifestyle with exercise and good eating habits can help reduce his risk of medical complications. Patient is explained that obesity increases his risk of diabetes, cardiovascular disease, or organ damage. We spent a lot of time discussing the relationship between food, exercise, sleep, mental health and obesity. Patient was counseled on the importance EATING local, organic food when possible. Patient was educated on clean 15 and dirty dozen. I provided information about reading books called The Food Rules by Ryder Cordero and Eat Fat Get Lean by Dr Hector Milton. Self education is important in the journey for weight management. Patient was offered diagnostic testing/ SECA scale. We want to measure visceral adiposity, advanced body composition, adverse lipids, fatty acid balance, risk for heart disease and atherosclerosis, markers of inflammation and genetic susceptibility. Patient was counseled on weight management and was advised to lose weight using A. Meal Replacement Products Patient was educated on the replacement products called optifast. This is a good way of taking fixed amount of calories. It has been shown in studies to be ineffective weight management tool. This however has to be coupled with lifestyle intervention as well as laboratory data and EKG monitoring. It is impossible to know how a person will tolerate complete meal replacement. The side effects of meal replacement and weight loss could include syncopal attacks, dizziness, gallstones, potential cholecystectomy, possible heart attack and even . The benefits of meal replacement would be potential weight loss but no guarantees can be made. Meal replacement products are not covered by insurance. Once the patient has bought these products we cannot return them B. Lifestyle management which includes several strategies as below 1. Eat a low carbohydrate good fat good protein diet. Eliminate refined carbohydrates from the diet. Limit sugared beverages. Eat local organic when possible. Cook your own meals. Read food labels. Focus on healthy snacks. Portion control and food with low glycemic index 2. Exercise regularly. Try to get at least 6000 steps a day. Use a predominant to track activity level. Consider using apps like 7 minute excercise, myfitnesspal, lose it, stick as needed for self-monitoring and weight management. Consider group exercises. Consider hiring a personal vehicle advisor. Regular exercise is castro to sustainable health and prevents as a buffer against weight regain 3. Sleep is most important for healing. Try to sleep at least 6-8 hours a night. A good quality sleep needs a sleep ritual with ideal room temperature of around 68. It might help to take a shower and have no electronics in the room and sleep in a very dark room without artificial light. Start sleep routine and get up early in the morning and go to bed on time. 4. Make a social connection. Surround yourself with positive people with positive energy. Connect with friends and family. 5. Get into the habit of meditating and mindfulness while doing everything. 6. Go outside and connect with nature. C. Prescription medications Patient was educated on the use of prescription medications for medical weight loss. This is a growing list and includes phentermine, Topamax,Qsymia, contrave, belviq and saxenda, wegovy etc. All prescription medications could have side effects including but not limited to kidney stones, seizure disorder cardiac arrhythmias heart attack pancreatitis, GI effects, Etc. Patient was encouraged to read the prescription insert and have coaching with their pharmacist and make an informed decision about taking medication and know that these medications are being prescribed with good intentions and we do not know how a patient would react to her medication. Some medications are FDA approved for weight loss and there is also off label use depending on patient's inability to afford medications in an attempt to lose weight D. Behavioral counseling was done to establish a relationship between food and an mood. Patient was provided information about local counseling and psychiatry and Dr Chambers at [employer]. We would like to cover regular topics and build on low glycemic eating exercise mindful eating, using yoga and meditation along with deep breathing and connecting with friends and family. E. MASS PAT reviewed, Patient's current medications were reviewed and opinion was given on medication that can cause weight gain and can be substituted F. Patient was assessed for risk with obesity including and not limiting to atherosclerosis heart disease stroke kidney disease, restrictive lung disease, irritable bowel syndrome and overall mortality. Risk of developing prediabetes diabetes and metabolic syndrome was discussed G. Therapeutic plan: We have decided to make therapeutic plan which would include choosing wisely on calories restricting portion getting active, tracking weight, getting good quality sleep and working on time management H. Patient will follow up in 4 weeks for weight management Total time spent today was 60 minutes of which greater than 50% was spent on coordinating and counseling Case discussed with collaborating physician Yvette Sexton who reviewed the assessment and plan. Chart, medications, labs, vital signs reviewed. Dictation was accomplished with the use of Dónde voice recognition software, prone to medical misidentifications and grammatical errors. This is unintentional and the practitioner does try to identify and correct these, but some could still be present. Please do not hesitate to contact practitioner for clarification. All questions answered to patients satisfaction. Patient verbalized understanding of diagnosis and treatments explained. To call sooner prior to next visit it any questions/concerns arise. 04/17/2025 BMI 33.0-33.9,adul t (ICD-10 - Z68.33) Deb is a 49-year-old female with past medical history of GEORGES who presents for weight management consult. Medical history, labs, allergies, medications, and social history reviewed with the patient. Provided education on healthy diet and lifestyle which includes high-protein, low carbohydrate, high-fiber, and a variety of fruits and vegetables. Patient encouraged to exercise with emphasis on resistance training minimum 3 times per week to maintain muscle mass and cardio to burn fat. All patient questions answered. Patient will follow-up in 4 weeks for weight management. #Obesity: 03/17/2025: Weight 177 pounds, BMI 31.35. Patient has tried weight watchers in the past, she utilizes her gym membership and walking pad twice per week. She is encouraged to increase her diet to include 3 meals per day with a goal of 80 to 100 g of protein per day. Discussed oral and injectable medications. Patient is familiar with Zepbound and would like to trial this medication. PA sent today. Plan to start Zepbound 2.5 mg injection weekly. Educated on side effects including constipation, nausea, reflux, hair thinning. Follow-up in 4 weeks. MICC injection given today. #04/17/2025: Weight 187.7 pounds, BMI 33.25. Patient has gained 6 pounds of fat mass and 2 pounds of muscle mass since last visit. Encouraged to increase exercise to 3-4 times per week for 30 to 40 minutes, and to eat whole foods focusing on protein and vegetables. Plan to start phentermine today. Educated on side effects including increased blood pressure, heart rate, palpitations. EKG done in office. Follow-up in 4 weeks. #Obstructive sleep apnea: Had a CPAP years ago but has since broken. Referral to sleep medicine services was placed last visit. Pending appointment. #Depression: Patient does have severe depression which is a large barrier to her weight loss. Denies wanting to start medication at this time. Continue following with psychiatry monthly and therapy weekly. Denies any thoughts of hurting self or others at this time. encouraged to call the office if their symptoms worsen or persist. Patient was reassured and welcomed to the practice. We discussed that we stress a hollistic medical approach with emphasis on lifestyle modification. Patient was informed that a healthy lifestyle with exercise and good eating habits can help reduce his risk of medical complications. Patient is explained that obesity increases his risk of diabetes, cardiovascular disease, or organ damage. We spent a lot of time discussing the relationship between food, exercise, sleep, mental health and obesity. Patient was counseled on the importance EATING local, organic food when possible. Patient was educated on clean 15 and dirty dozen. I provided information about reading books called The Food Rules by Ryder Cordero and Eat Fat Get Lean by Dr Hector Milton. Self education is important in the journey for weight management. Patient was offered diagnostic testing/ SECA scale. We want to measure visceral adiposity, advanced body composition, adverse lipids, fatty acid balance, risk for heart disease and atherosclerosis, markers of inflammation and genetic susceptibility. Patient was counseled on weight management and was advised to lose weight using A. Meal Replacement Products Patient was educated on the replacement products called optifast. This is a good way of taking fixed amount of calories. It has been shown in studies to be ineffective weight management tool. This however has to be coupled with lifestyle intervention as well as laboratory data and EKG monitoring. It is impossible to know how a person will tolerate complete meal replacement. The side effects of meal replacement and weight loss could include syncopal attacks, dizziness, gallstones, potential cholecystectomy, possible heart attack and even . The benefits of meal replacement would be potential weight loss but no guarantees can be made. Meal replacement products are not covered by insurance. Once the patient has bought these products we cannot return them B. Lifestyle management which includes several strategies as below 1. Eat a low carbohydrate good fat good protein diet. Eliminate refined carbohydrates from the diet. Limit sugared beverages. Eat local organic when possible. Cook your own meals. Read food labels. Focus on healthy snacks. Portion control and food with low glycemic index 2. Exercise regularly. Try to get at least 6000 steps a day. Use a predominant to track activity level. Consider using apps like 7 minute excercise, [employer]pal, lose it, stick as needed for self-monitoring and weight management. Consider group exercises. Consider hiring a personal vehicle advisor. Regular exercise is castro to sustainable health and prevents as a buffer against weight regain 3. Sleep is most important for healing. Try to sleep at least 6-8 hours a night. A good quality sleep needs a sleep ritual with ideal room temperature of around 68. It might help to take a shower and have no electronics in the room and sleep in a very dark room without artificial light. Start sleep routine and get up early in the morning and go to bed on time. 4. Make a social connection. Surround yourself with positive people with positive energy. Connect with friends and family. 5. Get into the habit of meditating and mindfulness while doing everything. 6. Go outside and connect with nature. C. Prescription medications Patient was educated on the use of prescription medications for medical weight loss. This is a growing list and includes phentermine, Topamax,Qsymia, contrave, belviq and saxenda, wegovy etc. All prescription medications could have side effects including but not limited to kidney stones, seizure disorder cardiac arrhythmias heart attack pancreatitis, GI effects, Etc. Patient was encouraged to read the prescription insert and have coaching with their pharmacist and make an informed decision about taking medication and know that these medications are being prescribed with good intentions and we do not know how a patient would react to her medication. Some medications are FDA approved for weight loss and there is also off label use depending on patient's inability to afford medications in an attempt to lose weight D. Behavioral counseling was done to establish a relationship between food and an mood. Patient was provided information about local counseling and psychiatry and Dr Chambers at [facility]. We would like to cover regular topics and build on low glycemic eating exercise mindful eating, using yoga and meditation along with deep breathing and connecting with friends and family. E. MASS PAT reviewed, Patient's current medications were reviewed and opinion was given on medication that can cause weight gain and can be substituted F. Patient was assessed for risk with obesity including and not limiting to atherosclerosis heart disease stroke kidney disease, restrictive lung disease, irritable bowel syndrome and overall mortality. Risk of developing prediabetes diabetes and metabolic syndrome was discussed G. Therapeutic plan: We have decided to make therapeutic plan which would include choosing wisely on calories restricting portion getting active, tracking weight, getting good quality sleep and working on time management H. Patient will follow up in 4 weeks for weight management Total time spent today was 60 minutes of which greater than 50% was spent on coordinating and counseling Case discussed with collaborating physician Yvette Sexton who reviewed the assessment and plan. Chart, medications, labs, vital signs reviewed. Dictation was accomplished with the use of Dónde voice recognition software, prone to medical misidentifications and grammatical errors. This is unintentional and the practitioner does try to identify and correct these, but some could still be present. Please do not hesitate to contact practitioner for clarification. All questions answered to patients satisfaction. Patient verbalized understanding of diagnosis and treatments explained. To call sooner prior to next visit it any questions/concerns arise. 04/19/2025 Moderate obesity (ICD-10 - E66.9) 04/19/2025 Moderate obesity (ICD-10 - E66.9) 04/19/2025 Moderate obesity (ICD-10 - E66.9) 05/22/2025 BMI 29.0-29.9,adul t (ICD-10 - Z68.29) Deb is a 49-year-old female with past medical history of GEORGES who presents for weight management consult. Medical history, labs, allergies, medications, and social history reviewed with the patient. Provided education on healthy diet and lifestyle which includes high-protein, low carbohydrate, high-fiber, and a variety of fruits and vegetables. Patient encouraged to exercise with emphasis on resistance training minimum 3 times per week to maintain muscle mass and cardio to burn fat. All patient questions answered. Patient will follow-up in 4 weeks for weight management. #Obesity: 03/17/2025: Weight 177 pounds, BMI 31.35. Patient has tried weight watchers in the past, she utilizes her gym membership and walking pad twice per week. She is encouraged to increase her diet to include 3 meals per day with a goal of 80 to 100 g of protein per day. Discussed oral and injectable medications. Patient is familiar with Zepbound and would like to trial this medication. PA sent today. Plan to start Zepbound 2.5 mg injection weekly. Educated on side effects including constipation, nausea, reflux, hair thinning. Follow-up in 4 weeks. MICC injection given today. #04/17/2025: Weight 187.7 pounds, BMI 33.25. Patient has gained 6 pounds of fat mass and 2 pounds of muscle mass since last visit. Encouraged to increase exercise to 3-4 times per week for 30 to 40 minutes, and to eat whole foods focusing on protein and vegetables. Plan to start phentermine today. Educated on side effects including increased blood pressure, heart rate, palpitations. EKG done in office. Follow-up in 4 weeks. #05/22/2025: Weight 171.2 pounds, BMI 29.7. Congratulated on effort. On review of body composition scan, skeletal muscle mass decreased 1 pound, however, skeletal muscle mass percentage increased to 27.3%, visceral adipose tissue decreased from 3.8-3.4, waist circumference decreased from 46 inches to 42 inches, fat mass decreased 8 pounds total. Plan to continue on phentermine 15 mg daily. Consider reinitiation of PA at next visit as it will have been 3 months total of lifestyle modifications. Follow-up in 4 weeks. #Obstructive sleep apnea: Had a CPAP years ago but has since broken. Referral to sleep medicine services was placed last visit. Pending appointment. #Depression: Patient does have severe depression which is a large barrier to her weight loss. Denies wanting to start medication at this time. Continue following with psychiatry monthly and therapy weekly. Denies any thoughts of hurting self or others at this time. encouraged to call the office if their symptoms worsen or persist. Patient was reassured and welcomed to the practice. We discussed that we stress a hollistic medical approach with emphasis on lifestyle modification. Patient was informed that a healthy lifestyle with exercise and good eating habits can help reduce his risk of medical complications. Patient is explained that obesity increases his risk of diabetes, cardiovascular disease, or organ damage. We spent a lot of time discussing the relationship between food, exercise, sleep, mental health and obesity. Patient was counseled on the importance EATING local, organic food when possible. Patient was educated on clean 15 and dirty dozen. I provided information about reading books called The Food Rules by Ryder Cordero and Eat Fat Get Lean by Dr Hector Milton. Self education is important in the journey for weight management. Patient was offered diagnostic testing/ SECA scale. We want to measure visceral adiposity, advanced body composition, adverse lipids, fatty acid balance, risk for heart disease and atherosclerosis, markers of inflammation and genetic susceptibility. Patient was counseled on weight management and was advised to lose weight using A. Meal Replacement Products Patient was educated on the replacement products called optifast. This is a good way of taking fixed amount of calories. It has been shown in studies to be ineffective weight management tool. This however has to be coupled with lifestyle intervention as well as laboratory data and EKG monitoring. It is impossible to know how a person will tolerate complete meal replacement. The side effects of meal replacement and weight loss could include syncopal attacks, dizziness, gallstones, potential cholecystectomy, possible heart attack and even . The benefits of meal replacement would be potential weight loss but no guarantees can be made. Meal replacement products are not covered by insurance. Once the patient has bought these products we cannot return them B. Lifestyle management which includes several strategies as below 1. Eat a low carbohydrate good fat good protein diet. Eliminate refined carbohydrates from the diet. Limit sugared beverages. Eat local organic when possible. Cook your own meals. Read food labels. Focus on healthy snacks. Portion control and food with low glycemic index 2. Exercise regularly. Try to get at least 6000 steps a day. Use a predominant to track activity level. Consider using apps like 7 minute excercise, myfitnesspal, lose it, stick as needed for self-monitoring and weight management. Consider group exercises. Consider hiring a personal vehicle advisor. Regular exercise is castro to sustainable health and prevents as a buffer against weight regain 3. Sleep is most important for healing. Try to sleep at least 6-8 hours a night. A good quality sleep needs a sleep ritual with ideal room temperature of around 68. It might help to take a shower and have no electronics in the room and sleep in a very dark room without artificial light. Start sleep routine and get up early in the morning and go to bed on time. 4. Make a social connection. Surround yourself with positive people with positive energy. Connect with friends and family. 5. Get into the habit of meditating and mindfulness while doing everything. 6. Go outside and connect with nature. C. Prescription medications Patient was educated on the use of prescription medications for medical weight loss. This is a growing list and includes phentermine, Topamax,Qsymia, contrave, belviq and saxenda, wegovy etc. All prescription medications could have side effects including but not limited to kidney stones, seizure disorder cardiac arrhythmias heart attack pancreatitis, GI effects, Etc. Patient was encouraged to read the prescription insert and have coaching with their pharmacist and make an informed decision about taking medication and know that these medications are being prescribed with good intentions and we do not know how a patient would react to her medication. Some medications are FDA approved for weight loss and there is also off label use depending on patient's inability to afford medications in an attempt to lose weight D. Behavioral counseling was done to establish a relationship between food and an mood. Patient was provided information about local counseling and psychiatry and Dr Chambers at [facility]. We would like to cover regular topics and build on low glycemic eating exercise mindful eating, using yoga and meditation along with deep breathing and connecting with friends and family. E. MASS PAT reviewed, Patient's current medications were reviewed and opinion was given on medication that can cause weight gain and can be substituted F. Patient was assessed for risk with obesity including and not limiting to atherosclerosis heart disease stroke kidney disease, restrictive lung disease, irritable bowel syndrome and overall mortality. Risk of developing prediabetes diabetes and metabolic syndrome was discussed G. Therapeutic plan: We have decided to make therapeutic plan which would include choosing wisely on calories restricting portion getting active, tracking weight, getting good quality sleep and working on time management H. Patient will follow up in 4 weeks for weight management Total time spent today was 60 minutes of which greater than 50% was spent on coordinating and counseling Case discussed with collaborating physician Yvette Sexton who reviewed the assessment and plan. Chart, medications, labs, vital signs reviewed. Dictation was accomplished with the use of Dónde voice recognition software, prone to medical misidentifications and grammatical errors. This is unintentional and the practitioner does try to identify and correct these, but some could still be present. Please do not hesitate to contact practitioner for clarification. All questions answered to patients satisfaction. Patient verbalized understanding of diagnosis and treatments explained. To call sooner prior to next visit it any questions/concerns arise. 04/17/2025 Obstructive sleep apnea (ICD-10 - G47.33) Deb is a 49-year-old female with past medical history of GEORGES who presents for weight management consult. Medical history, labs, allergies, medications, and social history reviewed with the patient. Provided education on healthy diet and lifestyle which includes high-protein, low carbohydrate, high-fiber, and a variety of fruits and vegetables. Patient encouraged to exercise with emphasis on resistance training minimum 3 times per week to maintain muscle mass and cardio to burn fat. All patient questions answered. Patient will follow-up in 4 weeks for weight management. #Obesity: 03/17/2025: Weight 177 pounds, BMI 31.35. Patient has tried weight watchers in the past, she utilizes her gym membership and walking pad twice per week. She is encouraged to increase her diet to include 3 meals per day with a goal of 80 to 100 g of protein per day. Discussed oral and injectable medications. Patient is familiar with Zepbound and would like to trial this medication. PA sent today. Plan to start Zepbound 2.5 mg injection weekly. Educated on side effects including constipation, nausea, reflux, hair thinning. Follow-up in 4 weeks. MICC injection given today. #04/17/2025: Weight 187.7 pounds, BMI 33.25. Patient has gained 6 pounds of fat mass and 2 pounds of muscle mass since last visit. Encouraged to increase exercise to 3-4 times per week for 30 to 40 minutes, and to eat whole foods focusing on protein and vegetables. Plan to start phentermine today. Educated on side effects including increased blood pressure, heart rate, palpitations. EKG done in office. Follow-up in 4 weeks. #Obstructive sleep apnea: Had a CPAP years ago but has since broken. Referral to sleep medicine services was placed last visit. Pending appointment. #Depression: Patient does have severe depression which is a large barrier to her weight loss. Denies wanting to start medication at this time. Continue following with psychiatry monthly and therapy weekly. Denies any thoughts of hurting self or others at this time. encouraged to call the office if their symptoms worsen or persist. Patient was reassured and welcomed to the practice. We discussed that we stress a hollistic medical approach with emphasis on lifestyle modification. Patient was informed that a healthy lifestyle with exercise and good eating habits can help reduce his risk of medical complications. Patient is explained that obesity increases his risk of diabetes, cardiovascular disease, or organ damage. We spent a lot of time discussing the relationship between food, exercise, sleep, mental health and obesity. Patient was counseled on the importance EATING local, organic food when possible. Patient was educated on clean 15 and dirty dozen. I provided information about reading books called The Food Rules by Ryder Cordero and Eat Fat Get Lean by Dr Hector Milton. Self education is important in the journey for weight management. Patient was offered diagnostic testing/ SECA scale. We want to measure visceral adiposity, advanced body composition, adverse lipids, fatty acid balance, risk for heart disease and atherosclerosis, markers of inflammation and genetic susceptibility. Patient was counseled on weight management and was advised to lose weight using A. Meal Replacement Products Patient was educated on the replacement products called optifast. This is a good way of taking fixed amount of calories. It has been shown in studies to be ineffective weight management tool. This however has to be coupled with lifestyle intervention as well as laboratory data and EKG monitoring. It is impossible to know how a person will tolerate complete meal replacement. The side effects of meal replacement and weight loss could include syncopal attacks, dizziness, gallstones, potential cholecystectomy, possible heart attack and even . The benefits of meal replacement would be potential weight loss but no guarantees can be made. Meal replacement products are not covered by insurance. Once the patient has bought these products we cannot return them B. Lifestyle management which includes several strategies as below 1. Eat a low carbohydrate good fat good protein diet. Eliminate refined carbohydrates from the diet. Limit sugared beverages. Eat local organic when possible. Cook your own meals. Read food labels. Focus on healthy snacks. Portion control and food with low glycemic index 2. Exercise regularly. Try to get at least 6000 steps a day. Use a predominant to track activity level. Consider using apps like 7 minute excercise, [employer]pal, lose it, stick as needed for self-monitoring and weight management. Consider group exercises. Consider hiring a personal vehicle advisor. Regular exercise is castro to sustainable health and prevents as a buffer against weight regain 3. Sleep is most important for healing. Try to sleep at least 6-8 hours a night. A good quality sleep needs a sleep ritual with ideal room temperature of around 68. It might help to take a shower and have no electronics in the room and sleep in a very dark room without artificial light. Start sleep routine and get up early in the morning and go to bed on time. 4. Make a social connection. Surround yourself with positive people with positive energy. Connect with friends and family. 5. Get into the habit of meditating and mindfulness while doing everything. 6. Go outside and connect with nature. C. Prescription medications Patient was educated on the use of prescription medications for medical weight loss. This is a growing list and includes phentermine, Topamax,Qsymia, contrave, belviq and saxenda, wegovy etc. All prescription medications could have side effects including but not limited to kidney stones, seizure disorder cardiac arrhythmias heart attack pancreatitis, GI effects, Etc. Patient was encouraged to read the prescription insert and have coaching with their pharmacist and make an informed decision about taking medication and know that these medications are being prescribed with good intentions and we do not know how a patient would react to her medication. Some medications are FDA approved for weight loss and there is also off label use depending on patient's inability to afford medications in an attempt to lose weight D. Behavioral counseling was done to establish a relationship between food and an mood. Patient was provided information about local counseling and psychiatry and Dr Chambers at [employer]. We would like to cover regular topics and build on low glycemic eating exercise mindful eating, using yoga and meditation along with deep breathing and connecting with friends and family. E. MASS PAT reviewed, Patient's current medications were reviewed and opinion was given on medication that can cause weight gain and can be substituted F. Patient was assessed for risk with obesity including and not limiting to atherosclerosis heart disease stroke kidney disease, restrictive lung disease, irritable bowel syndrome and overall mortality. Risk of developing prediabetes diabetes and metabolic syndrome was discussed G. Therapeutic plan: We have decided to make therapeutic plan which would include choosing wisely on calories restricting portion getting active, tracking weight, getting good quality sleep and working on time management H. Patient will follow up in 4 weeks for weight management Total time spent today was 60 minutes of which greater than 50% was spent on coordinating and counseling Case discussed with collaborating physician Yvette Sexton who reviewed the assessment and plan. Chart, medications, labs, vital signs reviewed. Dictation was accomplished with the use of Dragon voice recognition software, prone to medical misidentifications and grammatical errors. This is unintentional and the practitioner does try to identify and correct these, but some could still be present. Please do not hesitate to contact practitioner for clarification. All questions answered to patients satisfaction. Patient verbalized understanding of diagnosis and treatments explained. To call sooner prior to next visit it any questions/concerns arise. 04/17/2025 Moderate obesity (ICD-10 - E66.9) Deb is a 49-year-old female with past medical history of GEORGES who presents for weight management consult. Medical history, labs, allergies, medications, and social history reviewed with the patient. Provided education on healthy diet and lifestyle which includes high-protein, low carbohydrate, high-fiber, and a variety of fruits and vegetables. Patient encouraged to exercise with emphasis on resistance training minimum 3 times per week to maintain muscle mass and cardio to burn fat. All patient questions answered. Patient will follow-up in 4 weeks for weight management. #Obesity: 03/17/2025: Weight 177 pounds, BMI 31.35. Patient has tried weight watchers in the past, she utilizes her gym membership and walking pad twice per week. She is encouraged to increase her diet to include 3 meals per day with a goal of 80 to 100 g of protein per day. Discussed oral and injectable medications. Patient is familiar with Zepbound and would like to trial this medication. PA sent today. Plan to start Zepbound 2.5 mg injection weekly. Educated on side effects including constipation, nausea, reflux, hair thinning. Follow-up in 4 weeks. MICC injection given today. #04/17/2025: Weight 187.7 pounds, BMI 33.25. Patient has gained 6 pounds of fat mass and 2 pounds of muscle mass since last visit. Encouraged to increase exercise to 3-4 times per week for 30 to 40 minutes, and to eat whole foods focusing on protein and vegetables. Plan to start phentermine today. Educated on side effects including increased blood pressure, heart rate, palpitations. EKG done in office. Follow-up in 4 weeks. #Obstructive sleep apnea: Had a CPAP years ago but has since broken. Referral to sleep medicine services was placed last visit. Pending appointment. #Depression: Patient does have severe depression which is a large barrier to her weight loss. Denies wanting to start medication at this time. Continue following with psychiatry monthly and therapy weekly. Denies any thoughts of hurting self or others at this time. encouraged to call the office if their symptoms worsen or persist. Patient was reassured and welcomed to the practice. We discussed that we stress a hollistic medical approach with emphasis on lifestyle modification. Patient was informed that a healthy lifestyle with exercise and good eating habits can help reduce his risk of medical complications. Patient is explained that obesity increases his risk of diabetes, cardiovascular disease, or organ damage. We spent a lot of time discussing the relationship between food, exercise, sleep, mental health and obesity. Patient was counseled on the importance EATING local, organic food when possible. Patient was educated on clean 15 and dirty dozen. I provided information about reading books called The Food Rules by Ryder Cordero and Eat Fat Get Lean by Dr Hector Milton. Self education is important in the journey for weight management. Patient was offered diagnostic testing/ SECA scale. We want to measure visceral adiposity, advanced body composition, adverse lipids, fatty acid balance, risk for heart disease and atherosclerosis, markers of inflammation and genetic susceptibility. Patient was counseled on weight management and was advised to lose weight using A. Meal Replacement Products Patient was educated on the replacement products called optifast. This is a good way of taking fixed amount of calories. It has been shown in studies to be ineffective weight management tool. This however has to be coupled with lifestyle intervention as well as laboratory data and EKG monitoring. It is impossible to know how a person will tolerate complete meal replacement. The side effects of meal replacement and weight loss could include syncopal attacks, dizziness, gallstones, potential cholecystectomy, possible heart attack and even . The benefits of meal replacement would be potential weight loss but no guarantees can be made. Meal replacement products are not covered by insurance. Once the patient has bought these products we cannot return them B. Lifestyle management which includes several strategies as below 1. Eat a low carbohydrate good fat good protein diet. Eliminate refined carbohydrates from the diet. Limit sugared beverages. Eat local organic when possible. Cook your own meals. Read food labels. Focus on healthy snacks. Portion control and food with low glycemic index 2. Exercise regularly. Try to get at least 6000 steps a day. Use a predominant to track activity level. Consider using apps like 7 minute excercise, myfitnesspal, lose it, stick as needed for self-monitoring and weight management. Consider group exercises. Consider hiring a personal vehicle advisor. Regular exercise is castro to sustainable health and prevents as a buffer against weight regain 3. Sleep is most important for healing. Try to sleep at least 6-8 hours a night. A good quality sleep needs a sleep ritual with ideal room temperature of around 68. It might help to take a shower and have no electronics in the room and sleep in a very dark room without artificial light. Start sleep routine and get up early in the morning and go to bed on time. 4. Make a social connection. Surround yourself with positive people with positive energy. Connect with friends and family. 5. Get into the habit of meditating and mindfulness while doing everything. 6. Go outside and connect with nature. C. Prescription medications Patient was educated on the use of prescription medications for medical weight loss. This is a growing list and includes phentermine, Topamax,Qsymia, contrave, belviq and saxenda, wegovy etc. All prescription medications could have side effects including but not limited to kidney stones, seizure disorder cardiac arrhythmias heart attack pancreatitis, GI effects, Etc. Patient was encouraged to read the prescription insert and have coaching with their pharmacist and make an informed decision about taking medication and know that these medications are being prescribed with good intentions and we do not know how a patient would react to her medication. Some medications are FDA approved for weight loss and there is also off label use depending on patient's inability to afford medications in an attempt to lose weight D. Behavioral counseling was done to establish a relationship between food and an mood. Patient was provided information about local counseling and psychiatry and Dr Chambers at [facility]. We would like to cover regular topics and build on low glycemic eating exercise mindful eating, using yoga and meditation along with deep breathing and connecting with friends and family. E. MASS PAT reviewed, Patient's current medications were reviewed and opinion was given on medication that can cause weight gain and can be substituted F. Patient was assessed for risk with obesity including and not limiting to atherosclerosis heart disease stroke kidney disease, restrictive lung disease, irritable bowel syndrome and overall mortality. Risk of developing prediabetes diabetes and metabolic syndrome was discussed G. Therapeutic plan: We have decided to make therapeutic plan which would include choosing wisely on calories restricting portion getting active, tracking weight, getting good quality sleep and working on time management H. Patient will follow up in 4 weeks for weight management Total time spent today was 60 minutes of which greater than 50% was spent on coordinating and counseling Case discussed with collaborating physician Yvette Sexton who reviewed the assessment and plan. Chart, medications, labs, vital signs reviewed. Dictation was accomplished with the use of Dónde voice recognition software, prone to medical misidentifications and grammatical errors. This is unintentional and the practitioner does try to identify and correct these, but some could still be present. Please do not hesitate to contact practitioner for clarification. All questions answered to patients satisfaction. Patient verbalized understanding of diagnosis and treatments explained. To call sooner prior to next visit it any questions/concerns arise. 03/17/2025 Obstructive sleep apnea (ICD-10 - G47.33) Deb is a 49-year-old female with past medical history of GEORGES who presents for weight management consult. Medical history, labs, allergies, medications, and social history reviewed with the patient. Provided education on healthy diet and lifestyle which includes high-protein, low carbohydrate, high-fiber, and a variety of fruits and vegetables. Patient encouraged to exercise with emphasis on resistance training minimum 3 times per week to maintain muscle mass and cardio to burn fat. All patient questions answered. Patient will follow-up in 4 weeks for weight management. #Obesity: 03/17/2025: Weight 177 pounds, BMI 31.35. Patient has tried weight watchers in the past, she utilizes her gym membership and walking pad twice per week. She is encouraged to increase her diet to include 3 meals per day with a goal of 80 to 100 g of protein per day. Discussed oral and injectable medications. Patient is familiar with Zepbound and would like to trial this medication. PA sent today. Plan to start Zepbound 2.5 mg injection weekly. Educated on side effects including constipation, nausea, reflux, hair thinning. Follow-up in 4 weeks. MICC injection given today. #Obstructive sleep apnea: Patient follows with sleep study service in [facility], and is requesting referral to nearby sleep medicine services. She does have a CPAP at home. Continue nocturnal CPAP. Start Zepbound 2.5 mg weekly injections to help with GEORGES. 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 Referral to sleep medicine services placed today #Depression: Patient does have severe depression which is a large barrier to her weight loss. Denies wanting to start medication at this time. Continue following with psychiatry monthly and therapy weekly. Denies any thoughts of hurting self or others at this time. encouraged to call the office if their symptoms worsen or persist. Patient was reassured and welcomed to the practice. We discussed that we stress a hollistic medical approach with emphasis on lifestyle modification. Patient was informed that a healthy lifestyle with exercise and good eating habits can help reduce his risk of medical complications. Patient is explained that obesity increases his risk of diabetes, cardiovascular disease, or organ damage. We spent a lot of time discussing the relationship between food, exercise, sleep, mental health and obesity. Patient was counseled on the importance EATING local, organic food when possible. Patient was educated on clean 15 and dirty dozen. I provided information about reading books called The Food Rules by Ryder Cordero and Eat Fat Get Lean by Dr Hector Milton. Self education is important in the journey for weight management. Patient was offered diagnostic testing/ SECA scale. We want to measure visceral adiposity, advanced body composition, adverse lipids, fatty acid balance, risk for heart disease and atherosclerosis, markers of inflammation and genetic susceptibility. Patient was counseled on weight management and was advised to lose weight using A. Meal Replacement Products Patient was educated on the replacement products called optifast. This is a good way of taking fixed amount of calories. It has been shown in studies to be ineffective weight management tool. This however has to be coupled with lifestyle intervention as well as laboratory data and EKG monitoring. It is impossible to know how a person will tolerate complete meal replacement. The side effects of meal replacement and weight loss could include syncopal attacks, dizziness, gallstones, potential cholecystectomy, possible heart attack and even . The benefits of meal replacement would be potential weight loss but no guarantees can be made. Meal replacement products are not covered by insurance. Once the patient has bought these products we cannot return them B. Lifestyle management which includes several strategies as below 1. Eat a low carbohydrate good fat good protein diet. Eliminate refined carbohydrates from the diet. Limit sugared beverages. Eat local organic when possible. Cook your own meals. Read food labels. Focus on healthy snacks. Portion control and food with low glycemic index 2. Exercise regularly. Try to get at least 6000 steps a day. Use a predominant to track activity level. Consider using apps like 7 minute excercise, myfitnesspal, lose it, stick as needed for self-monitoring and weight management. Consider group exercises. Consider hiring a personal vehicle advisor. Regular exercise is castro to sustainable health and prevents as a buffer against weight regain 3. Sleep is most important for healing. Try to sleep at least 6-8 hours a night. A good quality sleep needs a sleep ritual with ideal room temperature of around 68. It might help to take a shower and have no electronics in the room and sleep in a very dark room without artificial light. Start sleep routine and get up early in the morning and go to bed on time. 4. Make a social connection. Surround yourself with positive people with positive energy. Connect with friends and family. 5. Get into the habit of meditating and mindfulness while doing everything. 6. Go outside and connect with nature. C. Prescription medications Patient was educated on the use of prescription medications for medical weight loss. This is a growing list and includes phentermine, Topamax,Qsymia, contrave, belviq and saxenda, wegovy etc. All prescription medications could have side effects including but not limited to kidney stones, seizure disorder cardiac arrhythmias heart attack pancreatitis, GI effects, Etc. Patient was encouraged to read the prescription insert and have coaching with their pharmacist and make an informed decision about taking medication and know that these medications are being prescribed with good intentions and we do not know how a patient would react to her medication. Some medications are FDA approved for weight loss and there is also off label use depending on patient's inability to afford medications in an attempt to lose weight D. Behavioral counseling was done to establish a relationship between food and an mood. Patient was provided information about local counseling and psychiatry and Dr Chambers at [employer] [employer]. We would like to cover regular topics and build on low glycemic eating exercise mindful eating, using yoga and meditation along with deep breathing and connecting with friends and family. E. MASS PAT reviewed, Patient's current medications were reviewed and opinion was given on medication that can cause weight gain and can be substituted F. Patient was assessed for risk with obesity including and not limiting to atherosclerosis heart disease stroke kidney disease, restrictive lung disease, irritable bowel syndrome and overall mortality. Risk of developing prediabetes diabetes and metabolic syndrome was discussed G. Therapeutic plan: We have decided to make therapeutic plan which would include choosing wisely on calories restricting portion getting active, tracking weight, getting good quality sleep and working on time management H. Patient will follow up in 4 weeks for weight management Total time spent today was 60 minutes of which greater than 50% was spent on coordinating and counseling Case discussed with collaborating physician Yvette Sexton who reviewed the assessment and plan. Chart, medications, labs, vital signs reviewed. Dictation was accomplished with the use of Dónde voice recognition software, prone to medical misidentifications and grammatical errors. This is unintentional and the practitioner does try to identify and correct these, but some could still be present. Please do not hesitate to contact practitioner for clarification. All questions answered to patients satisfaction. Patient verbalized understanding of diagnosis and treatments explained. To call sooner prior to next visit it any questions/concerns arise. 05/22/2025 Obstructive sleep apnea (ICD-10 - G47.33) Deb is a 49-year-old female with past medical history of GEORGES who presents for weight management consult. Medical history, labs, allergies, medications, and social history reviewed with the patient. Provided education on healthy diet and lifestyle which includes high-protein, low carbohydrate, high-fiber, and a variety of fruits and vegetables. Patient encouraged to exercise with emphasis on resistance training minimum 3 times per week to maintain muscle mass and cardio to burn fat. All patient questions answered. Patient will follow-up in 4 weeks for weight management. #Obesity: 03/17/2025: Weight 177 pounds, BMI 31.35. Patient has tried weight watchers in the past, she utilizes her gym membership and walking pad twice per week. She is encouraged to increase her diet to include 3 meals per day with a goal of 80 to 100 g of protein per day. Discussed oral and injectable medications. Patient is familiar with Zepbound and would like to trial this medication. PA sent today. Plan to start Zepbound 2.5 mg injection weekly. Educated on side effects including constipation, nausea, reflux, hair thinning. Follow-up in 4 weeks. MICC injection given today. #04/17/2025: Weight 187.7 pounds, BMI 33.25. Patient has gained 6 pounds of fat mass and 2 pounds of muscle mass since last visit. Encouraged to increase exercise to 3-4 times per week for 30 to 40 minutes, and to eat whole foods focusing on protein and vegetables. Plan to start phentermine today. Educated on side effects including increased blood pressure, heart rate, palpitations. EKG done in office. Follow-up in 4 weeks. #05/22/2025: Weight 171.2 pounds, BMI 29.7. Congratulated on effort. On review of body composition scan, skeletal muscle mass decreased 1 pound, however, skeletal muscle mass percentage increased to 27.3%, visceral adipose tissue decreased from 3.8-3.4, waist circumference decreased from 46 inches to 42 inches, fat mass decreased 8 pounds total. Plan to continue on phentermine 15 mg daily. Consider reinitiation of PA at next visit as it will have been 3 months total of lifestyle modifications. Follow-up in 4 weeks. #Obstructive sleep apnea: Had a CPAP years ago but has since broken. Referral to sleep medicine services was placed last visit. Pending appointment. #Depression: Patient does have severe depression which is a large barrier to her weight loss. Denies wanting to start medication at this time. Continue following with psychiatry monthly and therapy weekly. Denies any thoughts of hurting self or others at this time. encouraged to call the office if their symptoms worsen or persist. Patient was reassured and welcomed to the practice. We discussed that we stress a hollistic medical approach with emphasis on lifestyle modification. Patient was informed that a healthy lifestyle with exercise and good eating habits can help reduce his risk of medical complications. Patient is explained that obesity increases his risk of diabetes, cardiovascular disease, or organ damage. We spent a lot of time discussing the relationship between food, exercise, sleep, mental health and obesity. Patient was counseled on the importance EATING local, organic food when possible. Patient was educated on clean 15 and dirty dozen. I provided information about reading books called The Food Rules by Ryder Cordero and Eat Fat Get Lean by Dr Hector Milton. Self education is important in the journey for weight management. Patient was offered diagnostic testing/ SECA scale. We want to measure visceral adiposity, advanced body composition, adverse lipids, fatty acid balance, risk for heart disease and atherosclerosis, markers of inflammation and genetic susceptibility. Patient was counseled on weight management and was advised to lose weight using A. Meal Replacement Products Patient was educated on the replacement products called optifast. This is a good way of taking fixed amount of calories. It has been shown in studies to be ineffective weight management tool. This however has to be coupled with lifestyle intervention as well as laboratory data and EKG monitoring. It is impossible to know how a person will tolerate complete meal replacement. The side effects of meal replacement and weight loss could include syncopal attacks, dizziness, gallstones, potential cholecystectomy, possible heart attack and even . The benefits of meal replacement would be potential weight loss but no guarantees can be made. Meal replacement products are not covered by insurance. Once the patient has bought these products we cannot return them B. Lifestyle management which includes several strategies as below 1. Eat a low carbohydrate good fat good protein diet. Eliminate refined carbohydrates from the diet. Limit sugared beverages. Eat local organic when possible. Cook your own meals. Read food labels. Focus on healthy snacks. Portion control and food with low glycemic index 2. Exercise regularly. Try to get at least 6000 steps a day. Use a predominant to track activity level. Consider using apps like 7 minute excercise, Shopsypal, lose it, stick as needed for self-monitoring and weight management. Consider group exercises. Consider hiring a personal vehicle advisor. Regular exercise is castro to sustainable health and prevents as a buffer against weight regain 3. Sleep is most important for healing. Try to sleep at least 6-8 hours a night. A good quality sleep needs a sleep ritual with ideal room temperature of around 68. It might help to take a shower and have no electronics in the room and sleep in a very dark room without artificial light. Start sleep routine and get up early in the morning and go to bed on time. 4. Make a social connection. Surround yourself with positive people with positive energy. Connect with friends and family. 5. Get into the habit of meditating and mindfulness while doing everything. 6. Go outside and connect with nature. C. Prescription medications Patient was educated on the use of prescription medications for medical weight loss. This is a growing list and includes phentermine, Topamax,Qsymia, contrave, belviq and saxenda, wegovy etc. All prescription medications could have side effects including but not limited to kidney stones, seizure disorder cardiac arrhythmias heart attack pancreatitis, GI effects, Etc. Patient was encouraged to read the prescription insert and have coaching with their pharmacist and make an informed decision about taking medication and know that these medications are being prescribed with good intentions and we do not know how a patient would react to her medication. Some medications are FDA approved for weight loss and there is also off label use depending on patient's inability to afford medications in an attempt to lose weight D. Behavioral counseling was done to establish a relationship between food and an mood. Patient was provided information about local counseling and psychiatry and Dr Chambers at [employer]. We would like to cover regular topics and build on low glycemic eating exercise mindful eating, using yoga and meditation along with deep breathing and connecting with friends and family. E. MASS PAT reviewed, Patient's current medications were reviewed and opinion was given on medication that can cause weight gain and can be substituted F. Patient was assessed for risk with obesity including and not limiting to atherosclerosis heart disease stroke kidney disease, restrictive lung disease, irritable bowel syndrome and overall mortality. Risk of developing prediabetes diabetes and metabolic syndrome was discussed G. Therapeutic plan: We have decided to make therapeutic plan which would include choosing wisely on calories restricting portion getting active, tracking weight, getting good quality sleep and working on time management H. Patient will follow up in 4 weeks for weight management Total time spent today was 60 minutes of which greater than 50% was spent on coordinating and counseling Case discussed with collaborating physician Yvette Sexton who reviewed the assessment and plan. Chart, medications, labs, vital signs reviewed. Dictation was accomplished with the use of Dónde voice recognition software, prone to medical misidentifications and grammatical errors. This is unintentional and the practitioner does try to identify and correct these, but some could still be present. Please do not hesitate to contact practitioner for clarification. All questions answered to patients satisfaction. Patient verbalized understanding of diagnosis and treatments explained. To call sooner prior to next visit it any questions/concerns arise. 03/17/2025 Depression (ICD-10 - F32.9) Deb is a 49-year-old female with past medical history of GEORGES who presents for weight management consult. Medical history, labs, allergies, medications, and social history reviewed with the patient. Provided education on healthy diet and lifestyle which includes high-protein, low carbohydrate, high-fiber, and a variety of fruits and vegetables. Patient encouraged to exercise with emphasis on resistance training minimum 3 times per week to maintain muscle mass and cardio to burn fat. All patient questions answered. Patient will follow-up in 4 weeks for weight management. #Obesity: 03/17/2025: Weight 177 pounds, BMI 31.35. Patient has tried weight watchers in the past, she utilizes her gym membership and walking pad twice per week. She is encouraged to increase her diet to include 3 meals per day with a goal of 80 to 100 g of protein per day. Discussed oral and injectable medications. Patient is familiar with Zepbound and would like to trial this medication. PA sent today. Plan to start Zepbound 2.5 mg injection weekly. Educated on side effects including constipation, nausea, reflux, hair thinning. Follow-up in 4 weeks. MICC injection given today. #Obstructive sleep apnea: Patient follows with sleep study service in [facility], and is requesting referral to nearby sleep medicine services. She does have a CPAP at home. Continue nocturnal CPAP. Start Zepbound 2.5 mg weekly injections to help with GEORGES. 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 Referral to sleep medicine services placed today #Depression: Patient does have severe depression which is a large barrier to her weight loss. Denies wanting to start medication at this time. Continue following with psychiatry monthly and therapy weekly. Denies any thoughts of hurting self or others at this time. encouraged to call the office if their symptoms worsen or persist. Patient was reassured and welcomed to the practice. We discussed that we stress a hollistic medical approach with emphasis on lifestyle modification. Patient was informed that a healthy lifestyle with exercise and good eating habits can help reduce his risk of medical complications. Patient is explained that obesity increases his risk of diabetes, cardiovascular disease, or organ damage. We spent a lot of time discussing the relationship between food, exercise, sleep, mental health and obesity. Patient was counseled on the importance EATING local, organic food when possible. Patient was educated on clean 15 and dirty dozen. I provided information about reading books called The Food Rules by Ryder Cordero and Eat Fat Get Lean by Dr Hector Milton. Self education is important in the journey for weight management. Patient was offered diagnostic testing/ SECA scale. We want to measure visceral adiposity, advanced body composition, adverse lipids, fatty acid balance, risk for heart disease and atherosclerosis, markers of inflammation and genetic susceptibility. Patient was counseled on weight management and was advised to lose weight using A. Meal Replacement Products Patient was educated on the replacement products called optifast. This is a good way of taking fixed amount of calories. It has been shown in studies to be ineffective weight management tool. This however has to be coupled with lifestyle intervention as well as laboratory data and EKG monitoring. It is impossible to know how a person will tolerate complete meal replacement. The side effects of meal replacement and weight loss could include syncopal attacks, dizziness, gallstones, potential cholecystectomy, possible heart attack and even . The benefits of meal replacement would be potential weight loss but no guarantees can be made. Meal replacement products are not covered by insurance. Once the patient has bought these products we cannot return them B. Lifestyle management which includes several strategies as below 1. Eat a low carbohydrate good fat good protein diet. Eliminate refined carbohydrates from the diet. Limit sugared beverages. Eat local organic when possible. Cook your own meals. Read food labels. Focus on healthy snacks. Portion control and food with low glycemic index 2. Exercise regularly. Try to get at least 6000 steps a day. Use a predominant to track activity level. Consider using apps like 7 minute excercise, [employer]pal, lose it, stick as needed for self-monitoring and weight management. Consider group exercises. Consider hiring a personal vehicle advisor. Regular exercise is castro to sustainable health and prevents as a buffer against weight regain 3. Sleep is most important for healing. Try to sleep at least 6-8 hours a night. A good quality sleep needs a sleep ritual with ideal room temperature of around 68. It might help to take a shower and have no electronics in the room and sleep in a very dark room without artificial light. Start sleep routine and get up early in the morning and go to bed on time. 4. Make a social connection. Surround yourself with positive people with positive energy. Connect with friends and family. 5. Get into the habit of meditating and mindfulness while doing everything. 6. Go outside and connect with nature. C. Prescription medications Patient was educated on the use of prescription medications for medical weight loss. This is a growing list and includes phentermine, Topamax,Qsymia, contrave, belviq and saxenda, wegovy etc. All prescription medications could have side effects including but not limited to kidney stones, seizure disorder cardiac arrhythmias heart attack pancreatitis, GI effects, Etc. Patient was encouraged to read the prescription insert and have coaching with their pharmacist and make an informed decision about taking medication and know that these medications are being prescribed with good intentions and we do not know how a patient would react to her medication. Some medications are FDA approved for weight loss and there is also off label use depending on patient's inability to afford medications in an attempt to lose weight D. Behavioral counseling was done to establish a relationship between food and an mood. Patient was provided information about local counseling and psychiatry and Dr Chambers at [employer]. We would like to cover regular topics and build on low glycemic eating exercise mindful eating, using yoga and meditation along with deep breathing and connecting with friends and family. E. MASS PAT reviewed, Patient's current medications were reviewed and opinion was given on medication that can cause weight gain and can be substituted F. Patient was assessed for risk with obesity including and not limiting to atherosclerosis heart disease stroke kidney disease, restrictive lung disease, irritable bowel syndrome and overall mortality. Risk of developing prediabetes diabetes and metabolic syndrome was discussed G. Therapeutic plan: We have decided to make therapeutic plan which would include choosing wisely on calories restricting portion getting active, tracking weight, getting good quality sleep and working on time management H. Patient will follow up in 4 weeks for weight management Total time spent today was 60 minutes of which greater than 50% was spent on coordinating and counseling Case discussed with collaborating physician Yvette Sexton who reviewed the assessment and plan. Chart, medications, labs, vital signs reviewed. Dictation was accomplished with the use of Dónde voice recognition software, prone to medical misidentifications and grammatical errors. This is unintentional and the practitioner does try to identify and correct these, but some could still be present. Please do not hesitate to contact practitioner for clarification. All questions answered to patients satisfaction. Patient verbalized understanding of diagnosis and treatments explained. To call sooner prior to next visit it any questions/concerns arise. 04/17/2025 Depression (ICD-10 - F32.9) Deb is a 49-year-old female with past medical history of GEORGES who presents for weight management consult. Medical history, labs, allergies, medications, and social history reviewed with the patient. Provided education on healthy diet and lifestyle which includes high-protein, low carbohydrate, high-fiber, and a variety of fruits and vegetables. Patient encouraged to exercise with emphasis on resistance training minimum 3 times per week to maintain muscle mass and cardio to burn fat. All patient questions answered. Patient will follow-up in 4 weeks for weight management. #Obesity: 03/17/2025: Weight 177 pounds, BMI 31.35. Patient has tried weight watchers in the past, she utilizes her gym membership and walking pad twice per week. She is encouraged to increase her diet to include 3 meals per day with a goal of 80 to 100 g of protein per day. Discussed oral and injectable medications. Patient is familiar with Zepbound and would like to trial this medication. PA sent today. Plan to start Zepbound 2.5 mg injection weekly. Educated on side effects including constipation, nausea, reflux, hair thinning. Follow-up in 4 weeks. MICC injection given today. #04/17/2025: Weight 187.7 pounds, BMI 33.25. Patient has gained 6 pounds of fat mass and 2 pounds of muscle mass since last visit. Encouraged to increase exercise to 3-4 times per week for 30 to 40 minutes, and to eat whole foods focusing on protein and vegetables. Plan to start phentermine today. Educated on side effects including increased blood pressure, heart rate, palpitations. EKG done in office. Follow-up in 4 weeks. #Obstructive sleep apnea: Had a CPAP years ago but has since broken. Referral to sleep medicine services was placed last visit. Pending appointment. #Depression: Patient does have severe depression which is a large barrier to her weight loss. Denies wanting to start medication at this time. Continue following with psychiatry monthly and therapy weekly. Denies any thoughts of hurting self or others at this time. encouraged to call the office if their symptoms worsen or persist. Patient was reassured and welcomed to the practice. We discussed that we stress a hollistic medical approach with emphasis on lifestyle modification. Patient was informed that a healthy lifestyle with exercise and good eating habits can help reduce his risk of medical complications. Patient is explained that obesity increases his risk of diabetes, cardiovascular disease, or organ damage. We spent a lot of time discussing the relationship between food, exercise, sleep, mental health and obesity. Patient was counseled on the importance EATING local, organic food when possible. Patient was educated on clean 15 and dirty dozen. I provided information about reading books called The Food Rules by Ryder Cordero and Eat Fat Get Lean by Dr Hector Milton. Self education is important in the journey for weight management. Patient was offered diagnostic testing/ SECA scale. We want to measure visceral adiposity, advanced body composition, adverse lipids, fatty acid balance, risk for heart disease and atherosclerosis, markers of inflammation and genetic susceptibility. Patient was counseled on weight management and was advised to lose weight using A. Meal Replacement Products Patient was educated on the replacement products called optifast. This is a good way of taking fixed amount of calories. It has been shown in studies to be ineffective weight management tool. This however has to be coupled with lifestyle intervention as well as laboratory data and EKG monitoring. It is impossible to know how a person will tolerate complete meal replacement. The side effects of meal replacement and weight loss could include syncopal attacks, dizziness, gallstones, potential cholecystectomy, possible heart attack and even . The benefits of meal replacement would be potential weight loss but no guarantees can be made. Meal replacement products are not covered by insurance. Once the patient has bought these products we cannot return them B. Lifestyle management which includes several strategies as below 1. Eat a low carbohydrate good fat good protein diet. Eliminate refined carbohydrates from the diet. Limit sugared beverages. Eat local organic when possible. Cook your own meals. Read food labels. Focus on healthy snacks. Portion control and food with low glycemic index 2. Exercise regularly. Try to get at least 6000 steps a day. Use a predominant to track activity level. Consider using apps like 7 minute excercise, myfitnesspal, lose it, stick as needed for self-monitoring and weight management. Consider group exercises. Consider hiring a personal vehicle advisor. Regular exercise is castro to sustainable health and prevents as a buffer against weight regain 3. Sleep is most important for healing. Try to sleep at least 6-8 hours a night. A good quality sleep needs a sleep ritual with ideal room temperature of around 68. It might help to take a shower and have no electronics in the room and sleep in a very dark room without artificial light. Start sleep routine and get up early in the morning and go to bed on time. 4. Make a social connection. Surround yourself with positive people with positive energy. Connect with friends and family. 5. Get into the habit of meditating and mindfulness while doing everything. 6. Go outside and connect with nature. C. Prescription medications Patient was educated on the use of prescription medications for medical weight loss. This is a growing list and includes phentermine, Topamax,Qsymia, contrave, belviq and saxenda, wegovy etc. All prescription medications could have side effects including but not limited to kidney stones, seizure disorder cardiac arrhythmias heart attack pancreatitis, GI effects, Etc. Patient was encouraged to read the prescription insert and have coaching with their pharmacist and make an informed decision about taking medication and know that these medications are being prescribed with good intentions and we do not know how a patient would react to her medication. Some medications are FDA approved for weight loss and there is also off label use depending on patient's inability to afford medications in an attempt to lose weight D. Behavioral counseling was done to establish a relationship between food and an mood. Patient was provided information about local counseling and psychiatry and Dr Chambers at [employer] [employer]. We would like to cover regular topics and build on low glycemic eating exercise mindful eating, using yoga and meditation along with deep breathing and connecting with friends and family. E. MASS PAT reviewed, Patient's current medications were reviewed and opinion was given on medication that can cause weight gain and can be substituted F. Patient was assessed for risk with obesity including and not limiting to atherosclerosis heart disease stroke kidney disease, restrictive lung disease, irritable bowel syndrome and overall mortality. Risk of developing prediabetes diabetes and metabolic syndrome was discussed G. Therapeutic plan: We have decided to make therapeutic plan which would include choosing wisely on calories restricting portion getting active, tracking weight, getting good quality sleep and working on time management H. Patient will follow up in 4 weeks for weight management Total time spent today was 60 minutes of which greater than 50% was spent on coordinating and counseling Case discussed with collaborating physician Yvette Sexton who reviewed the assessment and plan. Chart, medications, labs, vital signs reviewed. Dictation was accomplished with the use of Dónde voice recognition software, prone to medical misidentifications and grammatical errors. This is unintentional and the practitioner does try to identify and correct these, but some could still be present. Please do not hesitate to contact practitioner for clarification. All questions answered to patients satisfaction. Patient verbalized understanding of diagnosis and treatments explained. To call sooner prior to next visit it any questions/concerns arise. 05/22/2025 Depression (ICD-10 - F32.9) Deb is a 49-year-old female with past medical history of GEORGES who presents for weight management consult. Medical history, labs, allergies, medications, and social history reviewed with the patient. Provided education on healthy diet and lifestyle which includes high-protein, low carbohydrate, high-fiber, and a variety of fruits and vegetables. Patient encouraged to exercise with emphasis on resistance training minimum 3 times per week to maintain muscle mass and cardio to burn fat. All patient questions answered. Patient will follow-up in 4 weeks for weight management. #Obesity: 03/17/2025: Weight 177 pounds, BMI 31.35. Patient has tried weight watchers in the past, she utilizes her gym membership and walking pad twice per week. She is encouraged to increase her diet to include 3 meals per day with a goal of 80 to 100 g of protein per day. Discussed oral and injectable medications. Patient is familiar with Zepbound and would like to trial this medication. PA sent today. Plan to start Zepbound 2.5 mg injection weekly. Educated on side effects including constipation, nausea, reflux, hair thinning. Follow-up in 4 weeks. MICC injection given today. #04/17/2025: Weight 187.7 pounds, BMI 33.25. Patient has gained 6 pounds of fat mass and 2 pounds of muscle mass since last visit. Encouraged to increase exercise to 3-4 times per week for 30 to 40 minutes, and to eat whole foods focusing on protein and vegetables. Plan to start phentermine today. Educated on side effects including increased blood pressure, heart rate, palpitations. EKG done in office. Follow-up in 4 weeks. #05/22/2025: Weight 171.2 pounds, BMI 29.7. Congratulated on effort. On review of body composition scan, skeletal muscle mass decreased 1 pound, however, skeletal muscle mass percentage increased to 27.3%, visceral adipose tissue decreased from 3.8-3.4, waist circumference decreased from 46 inches to 42 inches, fat mass decreased 8 pounds total. Plan to continue on phentermine 15 mg daily. Consider reinitiation of PA at next visit as it will have been 3 months total of lifestyle modifications. Follow-up in 4 weeks. #Obstructive sleep apnea: Had a CPAP years ago but has since broken. Referral to sleep medicine services was placed last visit. Pending appointment. #Depression: Patient does have severe depression which is a large barrier to her weight loss. Denies wanting to start medication at this time. Continue following with psychiatry monthly and therapy weekly. Denies any thoughts of hurting self or others at this time. encouraged to call the office if their symptoms worsen or persist. Patient was reassured and welcomed to the practice. We discussed that we stress a hollistic medical approach with emphasis on lifestyle modification. Patient was informed that a healthy lifestyle with exercise and good eating habits can help reduce his risk of medical complications. Patient is explained that obesity increases his risk of diabetes, cardiovascular disease, or organ damage. We spent a lot of time discussing the relationship between food, exercise, sleep, mental health and obesity. Patient was counseled on the importance EATING local, organic food when possible. Patient was educated on clean 15 and dirty dozen. I provided information about reading books called The Food Rules by Ryder Cordero and Eat Fat Get Lean by Dr Hector Milton. Self education is important in the journey for weight management. Patient was offered diagnostic testing/ SECA scale. We want to measure visceral adiposity, advanced body composition, adverse lipids, fatty acid balance, risk for heart disease and atherosclerosis, markers of inflammation and genetic susceptibility. Patient was counseled on weight management and was advised to lose weight using A. Meal Replacement Products Patient was educated on the replacement products called optifast. This is a good way of taking fixed amount of calories. It has been shown in studies to be ineffective weight management tool. This however has to be coupled with lifestyle intervention as well as laboratory data and EKG monitoring. It is impossible to know how a person will tolerate complete meal replacement. The side effects of meal replacement and weight loss could include syncopal attacks, dizziness, gallstones, potential cholecystectomy, possible heart attack and even . The benefits of meal replacement would be potential weight loss but no guarantees can be made. Meal replacement products are not covered by insurance. Once the patient has bought these products we cannot return them B. Lifestyle management which includes several strategies as below 1. Eat a low carbohydrate good fat good protein diet. Eliminate refined carbohydrates from the diet. Limit sugared beverages. Eat local organic when possible. Cook your own meals. Read food labels. Focus on healthy snacks. Portion control and food with low glycemic index 2. Exercise regularly. Try to get at least 6000 steps a day. Use a predominant to track activity level. Consider using apps like 7 minute excercise, [employer], lose it, stick as needed for self-monitoring and weight management. Consider group exercises. Consider hiring a personal vehicle advisor. Regular exercise is castro to sustainable health and prevents as a buffer against weight regain 3. Sleep is most important for healing. Try to sleep at least 6-8 hours a night. A good quality sleep needs a sleep ritual with ideal room temperature of around 68. It might help to take a shower and have no electronics in the room and sleep in a very dark room without artificial light. Start sleep routine and get up early in the morning and go to bed on time. 4. Make a social connection. Surround yourself with positive people with positive energy. Connect with friends and family. 5. Get into the habit of meditating and mindfulness while doing everything. 6. Go outside and connect with nature. C. Prescription medications Patient was educated on the use of prescription medications for medical weight loss. This is a growing list and includes phentermine, Topamax,Qsymia, contrave, belviq and saxenda, wegovy etc. All prescription medications could have side effects including but not limited to kidney stones, seizure disorder cardiac arrhythmias heart attack pancreatitis, GI effects, Etc. Patient was encouraged to read the prescription insert and have coaching with their pharmacist and make an informed decision about taking medication and know that these medications are being prescribed with good intentions and we do not know how a patient would react to her medication. Some medications are FDA approved for weight loss and there is also off label use depending on patient's inability to afford medications in an attempt to lose weight D. Behavioral counseling was done to establish a relationship between food and an mood. Patient was provided information about local counseling and psychiatry and Dr Chambers at [employer] [employer]. We would like to cover regular topics and build on low glycemic eating exercise mindful eating, using yoga and meditation along with deep breathing and connecting with friends and family. E. MASS PAT reviewed, Patient's current medications were reviewed and opinion was given on medication that can cause weight gain and can be substituted F. Patient was assessed for risk with obesity including and not limiting to atherosclerosis heart disease stroke kidney disease, restrictive lung disease, irritable bowel syndrome and overall mortality. Risk of developing prediabetes diabetes and metabolic syndrome was discussed G. Therapeutic plan: We have decided to make therapeutic plan which would include choosing wisely on calories restricting portion getting active, tracking weight, getting good quality sleep and working on time management H. Patient will follow up in 4 weeks for weight management Total time spent today was 60 minutes of which greater than 50% was spent on coordinating and counseling Case discussed with collaborating physician Yvette Sexton who reviewed the assessment and plan. Chart, medications, labs, vital signs reviewed. Dictation was accomplished with the use of Dónde voice recognition software, prone to medical misidentifications and grammatical errors. This is unintentional and the practitioner does try to identify and correct these, but some could still be present. Please do not hesitate to contact practitioner for clarification. All questions answered to patients satisfaction. Patient verbalized understanding of diagnosis and treatments explained. To call sooner prior to next visit it any questions/concerns arise. 05/22/2025 Moderate obesity (ICD-10 - E66.9) Deb is a 49-year-old female with past medical history of GEORGES who presents for weight management consult. Medical history, labs, allergies, medications, and social history reviewed with the patient. Provided education on healthy diet and lifestyle which includes high-protein, low carbohydrate, high-fiber, and a variety of fruits and vegetables. Patient encouraged to exercise with emphasis on resistance training minimum 3 times per week to maintain muscle mass and cardio to burn fat. All patient questions answered. Patient will follow-up in 4 weeks for weight management. #Obesity: 03/17/2025: Weight 177 pounds, BMI 31.35. Patient has tried weight watchers in the past, she utilizes her gym membership and walking pad twice per week. She is encouraged to increase her diet to include 3 meals per day with a goal of 80 to 100 g of protein per day. Discussed oral and injectable medications. Patient is familiar with Zepbound and would like to trial this medication. PA sent today. Plan to start Zepbound 2.5 mg injection weekly. Educated on side effects including constipation, nausea, reflux, hair thinning. Follow-up in 4 weeks. MICC injection given today. #04/17/2025: Weight 187.7 pounds, BMI 33.25. Patient has gained 6 pounds of fat mass and 2 pounds of muscle mass since last visit. Encouraged to increase exercise to 3-4 times per week for 30 to 40 minutes, and to eat whole foods focusing on protein and vegetables. Plan to start phentermine today. Educated on side effects including increased blood pressure, heart rate, palpitations. EKG done in office. Follow-up in 4 weeks. #05/22/2025: Weight 171.2 pounds, BMI 29.7. Congratulated on effort. On review of body composition scan, skeletal muscle mass decreased 1 pound, however, skeletal muscle mass percentage increased to 27.3%, visceral adipose tissue decreased from 3.8-3.4, waist circumference decreased from 46 inches to 42 inches, fat mass decreased 8 pounds total. Plan to continue on phentermine 15 mg daily. Consider reinitiation of PA at next visit as it will have been 3 months total of lifestyle modifications. Follow-up in 4 weeks. #Obstructive sleep apnea: Had a CPAP years ago but has since broken. Referral to sleep medicine services was placed last visit. Pending appointment. #Depression: Patient does have severe depression which is a large barrier to her weight loss. Denies wanting to start medication at this time. Continue following with psychiatry monthly and therapy weekly. Denies any thoughts of hurting self or others at this time. encouraged to call the office if their symptoms worsen or persist. Patient was reassured and welcomed to the practice. We discussed that we stress a hollistic medical approach with emphasis on lifestyle modification. Patient was informed that a healthy lifestyle with exercise and good eating habits can help reduce his risk of medical complications. Patient is explained that obesity increases his risk of diabetes, cardiovascular disease, or organ damage. We spent a lot of time discussing the relationship between food, exercise, sleep, mental health and obesity. Patient was counseled on the importance EATING local, organic food when possible. Patient was educated on clean 15 and dirty dozen. I provided information about reading books called The Food Rules by Ryder Cordero and Eat Fat Get Lean by Dr Hector Milton. Self education is important in the journey for weight management. Patient was offered diagnostic testing/ SECA scale. We want to measure visceral adiposity, advanced body composition, adverse lipids, fatty acid balance, risk for heart disease and atherosclerosis, markers of inflammation and genetic susceptibility. Patient was counseled on weight management and was advised to lose weight using A. Meal Replacement Products Patient was educated on the replacement products called optifast. This is a good way of taking fixed amount of calories. It has been shown in studies to be ineffective weight management tool. This however has to be coupled with lifestyle intervention as well as laboratory data and EKG monitoring. It is impossible to know how a person will tolerate complete meal replacement. The side effects of meal replacement and weight loss could include syncopal attacks, dizziness, gallstones, potential cholecystectomy, possible heart attack and even . The benefits of meal replacement would be potential weight loss but no guarantees can be made. Meal replacement products are not covered by insurance. Once the patient has bought these products we cannot return them B. Lifestyle management which includes several strategies as below 1. Eat a low carbohydrate good fat good protein diet. Eliminate refined carbohydrates from the diet. Limit sugared beverages. Eat local organic when possible. Cook your own meals. Read food labels. Focus on healthy snacks. Portion control and food with low glycemic index 2. Exercise regularly. Try to get at least 6000 steps a day. Use a predominant to track activity level. Consider using apps like 7 minute excercise, [employer], lose it, stick as needed for self-monitoring and weight management. Consider group exercises. Consider hiring a personal vehicle advisor. Regular exercise is castro to sustainable health and prevents as a buffer against weight regain 3. Sleep is most important for healing. Try to sleep at least 6-8 hours a night. A good quality sleep needs a sleep ritual with ideal room temperature of around 68. It might help to take a shower and have no electronics in the room and sleep in a very dark room without artificial light. Start sleep routine and get up early in the morning and go to bed on time. 4. Make a social connection. Surround yourself with positive people with positive energy. Connect with friends and family. 5. Get into the habit of meditating and mindfulness while doing everything. 6. Go outside and connect with nature. C. Prescription medications Patient was educated on the use of prescription medications for medical weight loss. This is a growing list and includes phentermine, Topamax,Qsymia, contrave, belviq and saxenda, wegovy etc. All prescription medications could have side effects including but not limited to kidney stones, seizure disorder cardiac arrhythmias heart attack pancreatitis, GI effects, Etc. Patient was encouraged to read the prescription insert and have coaching with their pharmacist and make an informed decision about taking medication and know that these medications are being prescribed with good intentions and we do not know how a patient would react to her medication. Some medications are FDA approved for weight loss and there is also off label use depending on patient's inability to afford medications in an attempt to lose weight D. Behavioral counseling was done to establish a relationship between food and an mood. Patient was provided information about local counseling and psychiatry and Dr Chambers at [facility]. We would like to cover regular topics and build on low glycemic eating exercise mindful eating, using yoga and meditation along with deep breathing and connecting with friends and family. E. MASS PAT reviewed, Patient's current medications were reviewed and opinion was given on medication that can cause weight gain and can be substituted F. Patient was assessed for risk with obesity including and not limiting to atherosclerosis heart disease stroke kidney disease, restrictive lung disease, irritable bowel syndrome and overall mortality. Risk of developing prediabetes diabetes and metabolic syndrome was discussed G. Therapeutic plan: We have decided to make therapeutic plan which would include choosing wisely on calories restricting portion getting active, tracking weight, getting good quality sleep and working on time management H. Patient will follow up in 4 weeks for weight management Total time spent today was 60 minutes of which greater than 50% was spent on coordinating and counseling Case discussed with collaborating physician Yvette Sexton who reviewed the assessment and plan. Chart, medications, labs, vital signs reviewed. Dictation was accomplished with the use of Dónde voice recognition software, prone to medical misidentifications and grammatical errors. This is unintentional and the practitioner does try to identify and correct these, but some could still be present. Please do not hesitate to contact practitioner for clarification. All questions answered to patients satisfaction. Patient verbalized understanding of diagnosis and treatments explained. To call sooner prior to next visit it any questions/concerns arise. 05/22/2025 Encounter for examination of blood pressure without abnormal findings (ICD-10 - Z01.30) Deb is a 49-year-old female with past medical history of GEORGES who presents for weight management consult. Medical history, labs, allergies, medications, and social history reviewed with the patient. Provided education on healthy diet and lifestyle which includes high-protein, low carbohydrate, high-fiber, and a variety of fruits and vegetables. Patient encouraged to exercise with emphasis on resistance training minimum 3 times per week to maintain muscle mass and cardio to burn fat. All patient questions answered. Patient will follow-up in 4 weeks for weight management. #Obesity: 03/17/2025: Weight 177 pounds, BMI 31.35. Patient has tried weight watchers in the past, she utilizes her gym membership and walking pad twice per week. She is encouraged to increase her diet to include 3 meals per day with a goal of 80 to 100 g of protein per day. Discussed oral and injectable medications. Patient is familiar with Zepbound and would like to trial this medication. PA sent today. Plan to start Zepbound 2.5 mg injection weekly. Educated on side effects including constipation, nausea, reflux, hair thinning. Follow-up in 4 weeks. MICC injection given today. #04/17/2025: Weight 187.7 pounds, BMI 33.25. Patient has gained 6 pounds of fat mass and 2 pounds of muscle mass since last visit. Encouraged to increase exercise to 3-4 times per week for 30 to 40 minutes, and to eat whole foods focusing on protein and vegetables. Plan to start phentermine today. Educated on side effects including increased blood pressure, heart rate, palpitations. EKG done in office. Follow-up in 4 weeks. #05/22/2025: Weight 171.2 pounds, BMI 29.7. Congratulated on effort. On review of body composition scan, skeletal muscle mass decreased 1 pound, however, skeletal muscle mass percentage increased to 27.3%, visceral adipose tissue decreased from 3.8-3.4, waist circumference decreased from 46 inches to 42 inches, fat mass decreased 8 pounds total. Plan to continue on phentermine 15 mg daily. Consider reinitiation of PA at next visit as it will have been 3 months total of lifestyle modifications. Follow-up in 4 weeks. #Obstructive sleep apnea: Had a CPAP years ago but has since broken. Referral to sleep medicine services was placed last visit. Pending appointment. #Depression: Patient does have severe depression which is a large barrier to her weight loss. Denies wanting to start medication at this time. Continue following with psychiatry monthly and therapy weekly. Denies any thoughts of hurting self or others at this time. encouraged to call the office if their symptoms worsen or persist. Patient was reassured and welcomed to the practice. We discussed that we stress a hollistic medical approach with emphasis on lifestyle modification. Patient was informed that a healthy lifestyle with exercise and good eating habits can help reduce his risk of medical complications. Patient is explained that obesity increases his risk of diabetes, cardiovascular disease, or organ damage. We spent a lot of time discussing the relationship between food, exercise, sleep, mental health and obesity. Patient was counseled on the importance EATING local, organic food when possible. Patient was educated on clean 15 and dirty dozen. I provided information about reading books called The Food Rules by Ryder Cordero and Eat Fat Get Lean by Dr Hector Milton. Self education is important in the journey for weight management. Patient was offered diagnostic testing/ SECA scale. We want to measure visceral adiposity, advanced body composition, adverse lipids, fatty acid balance, risk for heart disease and atherosclerosis, markers of inflammation and genetic susceptibility. Patient was counseled on weight management and was advised to lose weight using A. Meal Replacement Products Patient was educated on the replacement products called optifast. This is a good way of taking fixed amount of calories. It has been shown in studies to be ineffective weight management tool. This however has to be coupled with lifestyle intervention as well as laboratory data and EKG monitoring. It is impossible to know how a person will tolerate complete meal replacement. The side effects of meal replacement and weight loss could include syncopal attacks, dizziness, gallstones, potential cholecystectomy, possible heart attack and even . The benefits of meal replacement would be potential weight loss but no guarantees can be made. Meal replacement products are not covered by insurance. Once the patient has bought these products we cannot return them B. Lifestyle management which includes several strategies as below 1. Eat a low carbohydrate good fat good protein diet. Eliminate refined carbohydrates from the diet. Limit sugared beverages. Eat local organic when possible. Cook your own meals. Read food labels. Focus on healthy snacks. Portion control and food with low glycemic index 2. Exercise regularly. Try to get at least 6000 steps a day. Use a predominant to track activity level. Consider using apps like 7 minute excercise, myfitnesspal, lose it, stick as needed for self-monitoring and weight management. Consider group exercises. Consider hiring a personal vehicle advisor. Regular exercise is castro to sustainable health and prevents as a buffer against weight regain 3. Sleep is most important for healing. Try to sleep at least 6-8 hours a night. A good quality sleep needs a sleep ritual with ideal room temperature of around 68. It might help to take a shower and have no electronics in the room and sleep in a very dark room without artificial light. Start sleep routine and get up early in the morning and go to bed on time. 4. Make a social connection. Surround yourself with positive people with positive energy. Connect with friends and family. 5. Get into the habit of meditating and mindfulness while doing everything. 6. Go outside and connect with nature. C. Prescription medications Patient was educated on the use of prescription medications for medical weight loss. This is a growing list and includes phentermine, Topamax,Qsymia, contrave, belviq and saxenda, wegovy etc. All prescription medications could have side effects including but not limited to kidney stones, seizure disorder cardiac arrhythmias heart attack pancreatitis, GI effects, Etc. Patient was encouraged to read the prescription insert and have coaching with their pharmacist and make an informed decision about taking medication and know that these medications are being prescribed with good intentions and we do not know how a patient would react to her medication. Some medications are FDA approved for weight loss and there is also off label use depending on patient's inability to afford medications in an attempt to lose weight D. Behavioral counseling was done to establish a relationship between food and an mood. Patient was provided information about local counseling and psychiatry and Dr Chambers at [facility]. We would like to cover regular topics and build on low glycemic eating exercise mindful eating, using yoga and meditation along with deep breathing and connecting with friends and family. E. MASS PAT reviewed, Patient's current medications were reviewed and opinion was given on medication that can cause weight gain and can be substituted F. Patient was assessed for risk with obesity including and not limiting to atherosclerosis heart disease stroke kidney disease, restrictive lung disease, irritable bowel syndrome and overall mortality. Risk of developing prediabetes diabetes and metabolic syndrome was discussed G. Therapeutic plan: We have decided to make therapeutic plan which would include choosing wisely on calories restricting portion getting active, tracking weight, getting good quality sleep and working on time management H. Patient will follow up in 4 weeks for weight management Total time spent today was 60 minutes of which greater than 50% was spent on coordinating and counseling Case discussed with collaborating physician Yvette Sexton who reviewed the assessment and plan. Chart, medications, labs, vital signs reviewed. Dictation was accomplished with the use of Dónde voice recognition software, prone to medical misidentifications and grammatical errors. This is unintentional and the practitioner does try to identify and correct these, but some could still be present. Please do not hesitate to contact practitioner for clarification. All questions answered to patients satisfaction. Patient verbalized understanding of diagnosis and treatments explained. To call sooner prior to next visit it any questions/concerns arise. 04/17/2025 Encounter for examination of blood pressure without abnormal findings (ICD-10 - Z01.30) Deb is a 49-year-old female with past medical history of GEORGES who presents for weight management consult. Medical history, labs, allergies, medications, and social history reviewed with the patient. Provided education on healthy diet and lifestyle which includes high-protein, low carbohydrate, high-fiber, and a variety of fruits and vegetables. Patient encouraged to exercise with emphasis on resistance training minimum 3 times per week to maintain muscle mass and cardio to burn fat. All patient questions answered. Patient will follow-up in 4 weeks for weight management. #Obesity: 03/17/2025: Weight 177 pounds, BMI 31.35. Patient has tried weight watchers in the past, she utilizes her gym membership and walking pad twice per week. She is encouraged to increase her diet to include 3 meals per day with a goal of 80 to 100 g of protein per day. Discussed oral and injectable medications. Patient is familiar with Zepbound and would like to trial this medication. PA sent today. Plan to start Zepbound 2.5 mg injection weekly. Educated on side effects including constipation, nausea, reflux, hair thinning. Follow-up in 4 weeks. MICC injection given today. #04/17/2025: Weight 187.7 pounds, BMI 33.25. Patient has gained 6 pounds of fat mass and 2 pounds of muscle mass since last visit. Encouraged to increase exercise to 3-4 times per week for 30 to 40 minutes, and to eat whole foods focusing on protein and vegetables. Plan to start phentermine today. Educated on side effects including increased blood pressure, heart rate, palpitations. EKG done in office. Follow-up in 4 weeks. #Obstructive sleep apnea: Had a CPAP years ago but has since broken. Referral to sleep medicine services was placed last visit. Pending appointment. #Depression: Patient does have severe depression which is a large barrier to her weight loss. Denies wanting to start medication at this time. Continue following with psychiatry monthly and therapy weekly. Denies any thoughts of hurting self or others at this time. encouraged to call the office if their symptoms worsen or persist. Patient was reassured and welcomed to the practice. We discussed that we stress a hollistic medical approach with emphasis on lifestyle modification. Patient was informed that a healthy lifestyle with exercise and good eating habits can help reduce his risk of medical complications. Patient is explained that obesity increases his risk of diabetes, cardiovascular disease, or organ damage. We spent a lot of time discussing the relationship between food, exercise, sleep, mental health and obesity. Patient was counseled on the importance EATING local, organic food when possible. Patient was educated on clean 15 and dirty dozen. I provided information about reading books called The Food Rules by Ryder Cordero and Eat Fat Get Lean by Dr Hector Milton. Self education is important in the journey for weight management. Patient was offered diagnostic testing/ SECA scale. We want to measure visceral adiposity, advanced body composition, adverse lipids, fatty acid balance, risk for heart disease and atherosclerosis, markers of inflammation and genetic susceptibility. Patient was counseled on weight management and was advised to lose weight using A. Meal Replacement Products Patient was educated on the replacement products called optifast. This is a good way of taking fixed amount of calories. It has been shown in studies to be ineffective weight management tool. This however has to be coupled with lifestyle intervention as well as laboratory data and EKG monitoring. It is impossible to know how a person will tolerate complete meal replacement. The side effects of meal replacement and weight loss could include syncopal attacks, dizziness, gallstones, potential cholecystectomy, possible heart attack and even . The benefits of meal replacement would be potential weight loss but no guarantees can be made. Meal replacement products are not covered by insurance. Once the patient has bought these products we cannot return them B. Lifestyle management which includes several strategies as below 1. Eat a low carbohydrate good fat good protein diet. Eliminate refined carbohydrates from the diet. Limit sugared beverages. Eat local organic when possible. Cook your own meals. Read food labels. Focus on healthy snacks. Portion control and food with low glycemic index 2. Exercise regularly. Try to get at least 6000 steps a day. Use a predominant to track activity level. Consider using apps like 7 minute excercise, [employer], lose it, stick as needed for self-monitoring and weight management. Consider group exercises. Consider hiring a personal vehicle advisor. Regular exercise is castro to sustainable health and prevents as a buffer against weight regain 3. Sleep is most important for healing. Try to sleep at least 6-8 hours a night. A good quality sleep needs a sleep ritual with ideal room temperature of around 68. It might help to take a shower and have no electronics in the room and sleep in a very dark room without artificial light. Start sleep routine and get up early in the morning and go to bed on time. 4. Make a social connection. Surround yourself with positive people with positive energy. Connect with friends and family. 5. Get into the habit of meditating and mindfulness while doing everything. 6. Go outside and connect with nature. C. Prescription medications Patient was educated on the use of prescription medications for medical weight loss. This is a growing list and includes phentermine, Topamax,Qsymia, contrave, belviq and saxenda, wegovy etc. All prescription medications could have side effects including but not limited to kidney stones, seizure disorder cardiac arrhythmias heart attack pancreatitis, GI effects, Etc. Patient was encouraged to read the prescription insert and have coaching with their pharmacist and make an informed decision about taking medication and know that these medications are being prescribed with good intentions and we do not know how a patient would react to her medication. Some medications are FDA approved for weight loss and there is also off label use depending on patient's inability to afford medications in an attempt to lose weight D. Behavioral counseling was done to establish a relationship between food and an mood. Patient was provided information about local counseling and psychiatry and Dr Chambers at [facility]. We would like to cover regular topics and build on low glycemic eating exercise mindful eating, using yoga and meditation along with deep breathing and connecting with friends and family. E. MASS PAT reviewed, Patient's current medications were reviewed and opinion was given on medication that can cause weight gain and can be substituted F. Patient was assessed for risk with obesity including and not limiting to atherosclerosis heart disease stroke kidney disease, restrictive lung disease, irritable bowel syndrome and overall mortality. Risk of developing prediabetes diabetes and metabolic syndrome was discussed G. Therapeutic plan: We have decided to make therapeutic plan which would include choosing wisely on calories restricting portion getting active, tracking weight, getting good quality sleep and working on time management H. Patient will follow up in 4 weeks for weight management Total time spent today was 60 minutes of which greater than 50% was spent on coordinating and counseling Case discussed with collaborating physician Yvette Sexton who reviewed the assessment and plan. Chart, medications, labs, vital signs reviewed. Dictation was accomplished with the use of Dónde voice recognition software, prone to medical misidentifications and grammatical errors. This is unintentional and the practitioner does try to identify and correct these, but some could still be present. Please do not hesitate to contact practitioner for clarification. All questions answered to patients satisfaction. Patient verbalized understanding of diagnosis and treatments explained. To call sooner prior to next visit it any questions/concerns arise. 03/17/2025 Encounter for examination of blood pressure without abnormal findings (ICD-10 - Z01.30) Deb is a 49-year-old female with past medical history of GEORGES who presents for weight management consult. Medical history, labs, allergies, medications, and social history reviewed with the patient. Provided education on healthy diet and lifestyle which includes high-protein, low carbohydrate, high-fiber, and a variety of fruits and vegetables. Patient encouraged to exercise with emphasis on resistance training minimum 3 times per week to maintain muscle mass and cardio to burn fat. All patient questions answered. Patient will follow-up in 4 weeks for weight management. #Obesity: 03/17/2025: Weight 177 pounds, BMI 31.35. Patient has tried weight watchers in the past, she utilizes her gym membership and walking pad twice per week. She is encouraged to increase her diet to include 3 meals per day with a goal of 80 to 100 g of protein per day. Discussed oral and injectable medications. Patient is familiar with Zepbound and would like to trial this medication. PA sent today. Plan to start Zepbound 2.5 mg injection weekly. Educated on side effects including constipation, nausea, reflux, hair thinning. Follow-up in 4 weeks. MICC injection given today. #Obstructive sleep apnea: Patient follows with sleep study service in [facility], and is requesting referral to nearby sleep medicine services. She does have a CPAP at home. Continue nocturnal CPAP. Start Zepbound 2.5 mg weekly injections to help with GEORGES. 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 Referral to sleep medicine services placed today #Depression: Patient does have severe depression which is a large barrier to her weight loss. Denies wanting to start medication at this time. Continue following with psychiatry monthly and therapy weekly. Denies any thoughts of hurting self or others at this time. encouraged to call the office if their symptoms worsen or persist. Patient was reassured and welcomed to the practice. We discussed that we stress a hollistic medical approach with emphasis on lifestyle modification. Patient was informed that a healthy lifestyle with exercise and good eating habits can help reduce his risk of medical complications. Patient is explained that obesity increases his risk of diabetes, cardiovascular disease, or organ damage. We spent a lot of time discussing the relationship between food, exercise, sleep, mental health and obesity. Patient was counseled on the importance EATING local, organic food when possible. Patient was educated on clean 15 and dirty dozen. I provided information about reading books called The Food Rules by Ryder Cordero and Eat Fat Get Lean by Dr Hector Milton. Self education is important in the journey for weight management. Patient was offered diagnostic testing/ SECA scale. We want to measure visceral adiposity, advanced body composition, adverse lipids, fatty acid balance, risk for heart disease and atherosclerosis, markers of inflammation and genetic susceptibility. Patient was counseled on weight management and was advised to lose weight using A. Meal Replacement Products Patient was educated on the replacement products called optifast. This is a good way of taking fixed amount of calories. It has been shown in studies to be ineffective weight management tool. This however has to be coupled with lifestyle intervention as well as laboratory data and EKG monitoring. It is impossible to know how a person will tolerate complete meal replacement. The side effects of meal replacement and weight loss could include syncopal attacks, dizziness, gallstones, potential cholecystectomy, possible heart attack and even . The benefits of meal replacement would be potential weight loss but no guarantees can be made. Meal replacement products are not covered by insurance. Once the patient has bought these products we cannot return them B. Lifestyle management which includes several strategies as below 1. Eat a low carbohydrate good fat good protein diet. Eliminate refined carbohydrates from the diet. Limit sugared beverages. Eat local organic when possible. Cook your own meals. Read food labels. Focus on healthy snacks. Portion control and food with low glycemic index 2. Exercise regularly. Try to get at least 6000 steps a day. Use a predominant to track activity level. Consider using apps like 7 minute excercise, myfitnesspal, lose it, stick as needed for self-monitoring and weight management. Consider group exercises. Consider hiring a personal vehicle advisor. Regular exercise is castro to sustainable health and prevents as a buffer against weight regain 3. Sleep is most important for healing. Try to sleep at least 6-8 hours a night. A good quality sleep needs a sleep ritual with ideal room temperature of around 68. It might help to take a shower and have no electronics in the room and sleep in a very dark room without artificial light. Start sleep routine and get up early in the morning and go to bed on time. 4. Make a social connection. Surround yourself with positive people with positive energy. Connect with friends and family. 5. Get into the habit of meditating and mindfulness while doing everything. 6. Go outside and connect with nature. C. Prescription medications Patient was educated on the use of prescription medications for medical weight loss. This is a growing list and includes phentermine, Topamax,Qsymia, contrave, belviq and saxenda, wegovy etc. All prescription medications could have side effects including but not limited to kidney stones, seizure disorder cardiac arrhythmias heart attack pancreatitis, GI effects, Etc. Patient was encouraged to read the prescription insert and have coaching with their pharmacist and make an informed decision about taking medication and know that these medications are being prescribed with good intentions and we do not know how a patient would react to her medication. Some medications are FDA approved for weight loss and there is also off label use depending on patient's inability to afford medications in an attempt to lose weight D. Behavioral counseling was done to establish a relationship between food and an mood. Patient was provided information about local counseling and psychiatry and Dr Chambers at [employer]. We would like to cover regular topics and build on low glycemic eating exercise mindful eating, using yoga and meditation along with deep breathing and connecting with friends and family. E. MASS PAT reviewed, Patient's current medications were reviewed and opinion was given on medication that can cause weight gain and can be substituted F. Patient was assessed for risk with obesity including and not limiting to atherosclerosis heart disease stroke kidney disease, restrictive lung disease, irritable bowel syndrome and overall mortality. Risk of developing prediabetes diabetes and metabolic syndrome was discussed G. Therapeutic plan: We have decided to make therapeutic plan which would include choosing wisely on calories restricting portion getting active, tracking weight, getting good quality sleep and working on time management H. Patient will follow up in 4 weeks for weight management Total time spent today was 60 minutes of which greater than 50% was spent on coordinating and counseling Case discussed with collaborating physician Yvette Sexton who reviewed the assessment and plan. Chart, medications, labs, vital signs reviewed. Dictation was accomplished with the use of Dónde voice recognition software, prone to medical misidentifications and grammatical errors. This is unintentional and the practitioner does try to identify and correct these, but some could still be present. Please do not hesitate to contact practitioner for clarification. All questions answered to patients satisfaction. Patient verbalized understanding of diagnosis and treatments explained. To call sooner prior to next visit it any questions/concerns arise. 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
--- OUTSIDE RECORDS SUMMARY | 2025-06-15 09:01 | XMS_ITS | Continuity of Care Document ---
Author Organization [employer] Address [address] [address] Insurance Providers Payer Plan Claims Address Claims Phone Policy Number Group Number Relation Employer Guarantor Name Guarantor Guarantor Address Guarantor Phone EMILY DAVID FRANCISCA Rodriguez PLAN [address] [address], [place] [address] [id number] Self Deb Malcolm 1975 [address] [place] [address] [facility], [address], [place] [address] tel:[phone] [id number] Self Deb Malcolm 1975 [address] [place] [address] EMILY Carlo BRUNERHong [employer] [address] [address], [place] [address] tel:[phone] Self Deb Malcolm 1975 [address] [place] [address] Problems Condition ICD9 code ICD10 code SNOMED code Start Date End Date S tatus Encounter for screening for other metabolic disorders Z13.228 Results No Results Allergies, adverse reactions, alerts No known allergies and adverse reactions Medications No administered medications reported Vital Signs No vital signs reported Social History No smoking Hx information available
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
[2025-06-15 10:40] LABS: Syphilis Screen Nonreactive (Nonreactive)
[2025-06-15 10:46] LABS: HBS Num1 712.50 mIU/mL (0-7.99); HBc Num1 0.11 S/CO (0.00-0.79); HBsAGNum1 0.33 S/CO (0.00-0.99); HIV Num 1 0.05 S/CO (0.00-0.99); Hepatitis B Surface Antigen Negative (Negative); ~HepC Num1 0.32 S/CO (0.00-0.79); ~Hepatitis B Surface Antibody REACTIVE (Nonreactive); ~Hepatitis C Antibody Nonreactive (Nonreactive)
[2025-06-15 12:06] LABS: CT PCR Urine NOT DETECTED (Not Detect.); NG PCR Urine NOT DETECTED (Not Detect.)
== END 2025-06-15 08:32 | disposition home or self-care (01) ==
LOC: HO.LAB 08:31
PROVIDERS: PCP Physician Assistant; Visit Provider Physician Assistant
DX: Z11.3 Encounter for screening for infections with a predominantly sexual mode of transmission (principal); Z11.4 Encounter for screening for human immunodeficiency virus [HIV]; Z11.8 Encounter for screening for other infectious and parasitic diseases; Z11.59 Encounter for screening for other viral diseases
CPT/HCPCS: 86704; 86706; 86780; 86803; 87340; 87389; 87491; 87591

== ENCOUNTER → 2025-06-26 10:10 | Outpatient (REF) | payer OTHER, SELFPAY ==
--- NOTE | 2025-06-26 10:13 | CA_ITS ---
Transthoracic Echocardiogram Patient (Last, First, Middle): Deb Malcolm, Gender: F Date of : 1975 Age: 50 Procedure Date: 06/26/2025 Procedure Type: Transthoracic Echocardiogram Location: OP Height: 160.02 cm Weight: 76.2 kg BSA: 1.80 m2 Heart Rate: bpm BP: 106 / 74 mmHg Communications Media Professor: PATRICIA Referring MD: Betito Rico PA-C Symptoms: R53.82 - Chronic fatigue, unspecified Study Quality: Fair ECG Rhythm: Sinus Conclusions: - The left ventricular systolic function is normal. The visually estimated ejection fraction is between 55-60%. - No obvious valvular pathology seen on this study. Findings Left Ventricle Normal left ventricular cavity size. There is normal left ventricular wall thickness. The left ventricular systolic function is normal. The visually estimated ejection fraction is between 55-60%. There is no evidence of regional wall motion abnormalities. Diastolic function is normal for age. Right Ventricle Normal right ventricular cavity size and systolic function. Atria Both atria are normal in size. Aortic Valve There is a normal trileaflet aortic valve. There is no aortic valve stenosis. There is no aortic valve regurgitation. Mitral Valve The mitral valve appears normal. There is no mitral valve regurgitation. There is no mitral valve stenosis. Pulmonic Valve The pulmonic valve is likely normal. Tricuspid Valve There is trace tricuspid valve regurgitation. There is no evidence of pulmonary hypertension. Great Vessels The asc aorta is normal in size. Venous The inferior vena cava is normal in size and collapses greater than 50% with inspiration. Pericardium/Pleural There is no evidence of pericardial effusion. Prior Study Comparison No significant change compared to prior study dated: 09/13/2020. Recommendations, Care & Conclusions No obvious valvular pathology seen on this study. Measurements 2D Linear Measurements IVSd: 0.82 0.6-0.9/0.6-1.0 cm LVIDd: 4.81 3.9-5.3/4.2-5.9 cm LVIDd Index: 2.67 2.4-3.2/2.2-3.1 cm/m2 LVIDs: 3.39 2.0-3.6 cm LVPWd: 0.87 0.7-1.1 cm LA Diam: 2.80 2.7-3.8/3.0-4.0 cm LAIDs Index: 1.56 1.5-2.3 cm/m2 LV Mass: 170.14 67-162/88-224 g LV Mass Index: 94.52 43-95/49-115 g/m2 LVOT Diam: 2.20 3.0+(-)1.3 cm 2D Systolic Function EF 4C: 65.10 >55% EF 2C: 64.00 >55% EF BiP: 64.60 >55% Mitral Valve MV Pk E: 0.78 MV PK A: 0.37 MV Decel Time: 210.00 E/A: 2.10 E'Lateral: 10.90 E'Medial: 8.38 E/E' Med: 9.30 E/E' Lat: 7.20 PHT: 62.00 MVA PHT: 3.55 Decel Granite: 3.71 Aortic Valve AoV Pk Arsh: 1.04 AoV Mn Arsh: 0.78 AoV VTI: 0.24 AoV Pk Grad: 4.00 Aov Mn Grad: 3.00 DIYA Cont.VTI: 2.43 LVOT LVOT Pk Arsh: 0.77 LVOT Mn Arsh: 0.49 LVOT VTI: 0.15 LVOT Pk Grad: 2.00 LVOT Mn Grad: 1.00 LVOT Diam: 2.20 LVOT Area: 3.80 Diastolic Function MV Pk E: 0.78 MV Pk A: 0.37 E/A: 2.10 E'Medial: 8.38 E/E' Med: 9.30 E' Laterial: 10.90 E/E' Lat: 7.20 Right Ventricle TAPSE (mm): 22.60 TVS' Arsh: 11.00 Tricuspid Valve TR Pk Arsh: 1.57 TR Pk Grad: 10.00 RA Press: 3.00 RVSP: 13.00 Great Vessels Aorta Sinus of Valsalva: 3.11 2.0-3.[address] Ridge: 2.51 1.7-3.4 cm Ao Asc: 2.90 2.1-3.4 cm Ao Arch: 2.40 Updated in Other Vendor System with Status of Final James Ledesma MD electronically signed on 06/26/2025 12:34:05 PM with status of Final
--- OUTSIDE RECORDS SUMMARY | 2025-06-26 12:48 | XMS_ITS | Clinical Summary ---
Author Organization [facility] Address [address] [place] [address] Phone Care Team Providers Care Ux Design Lead Name Role Phone Betito Rico Primary Care [...] RECONSTRUCTION; COMMENT: augmentation OTHER SURGICAL HISTORY PROCEDURE: [place] SURGICAL ARTHROSCOPY SHOULDER LMTD DBRDMT 10/13; COMMENT: [...] 09/20/2022 Social Influencers of Health Screening 09/20/2022 Depression Screening 10/12/2024 COVID-19 Vaccine ( season) 2025 09/02/2022, 03/08/2021, 02/15/2021 Influenza Vaccine (#1) 2025 , 07/13/2023, 09/02/2022, [...] RESULTING AGENCY - 03/15/2018 2:38 PM EDT [id number] THINPREP PAP, IMAGED: NEGATIVE FOR SQUAMOUS INTRAEPITHELIAL [...] Recently Relevant to Health Maintenance Insurance MEDICARE [facility] Advance Directives Documents on File Type Date Recorded Patient Assistant Education Director Expl anation Health Care Decision (hx) 01/07/2023 AD MESA DIRECTIVE Health Care Decision (hx) 01/07/2023 AD MESA DIRECTIVE Health Care Decision (hx) 01/07/2023 AD MESA DIRECTIVE Care Teams Ux Design Lead Relationship Specialty Start Date End Date Betito Rico PA [address] [place] [address] PCP - General Physician Lap Regulator 11/08/24
--- OUTSIDE RECORDS SUMMARY | 2025-06-26 12:48 | XMS_ITS | Patient Health Record ---
Author Organization [facility] [address] Address [address] [place] [address] Care Team Providers Care National Accounts Sales Name Role Phone Betito Rico Primary Care Provider Unavailab Jacquie Card Unavailable [phone] LAURI LEIVA Unavailable [phone] Allergies Allergen (clinical drug ingredient) Drug/Non Drug [...] Obstructive sleep ap aida (G47.33) Referral Organization [facility] Referring Provider First Name Jacquie Referring Provider Last Name Ted Referring Provider Speciality Internal M edicine Referred Provider Specialty Pulmonology General Notes Shweta Kirkland 08/2025 08:34:17 AM > referral form faxed to [phone] and pt given phone [phone] Clinical Notes Sparkle Reynolds 02:49:32 PM > I called the office, and they informed me that they reached out to the patient three times and even sent a letter, but have not received a response. Referral Priority Routine Medications Medication SIG (Take, Route, Fr equency, Duration) Notes Start Date End Date Status Ondansetron 4 MG 1 tablet on the tongue and allow to dissolve Orally Once a day; Duration: 30 days As needed nausea 05/08/2025 Active Phentermine HCl 15 MG 1 capsule Orally O nce a day; Duration: 30 days 06/26/2025 Active Zepbound 2.5 MG/0.5ML 0.5 mL Subcutaneou s weekly; Duration: 30 days 06/19/2025 Active Social History Tobacco Use: Social History [...] Status Risk Notes Problem Obstructive sleep apnea (93520338) Obstructive sleep apnea (G47.33) Active confirmed Problem Obese class I (249477393499537 ) BMI 33.0-33.9,adult (Z68.33) Active confirmed Problem Body mass index 30.00 to 34.99 (785869457121407 ) BMI 31.0-31.9,adult (Z68.31) Active confirmed Problem Depression (911154606) Depression (F32.9) Active confirmed Problem Obesity (076009679) Moderate obesity (E66.9) Active confirmed Vital Signs Heart Rate 81 /min 06/19/2025 Oximetry 97 % 06/19/2025 Blood pressure diastolic 80 mm Hg 06/19/2025 Height 63 in 06/19/2025 Blood pressure systolic 112 mm Hg 06/19/2025 Weight 166.3 lbs 06/19/2025 BMI 29.46 kg/m2 06/19/2025 Encounters Encounter Location Date Provider Diagnosis [facility] [address] [address] 03/17/2025 Jacquie Normoyle Moderate obesity E66 .9 ; BMI 31.0-31.9,adult Z68.31 ; Obstructive sleep apnea G47.33 ; Depression F32.9 and Encounter for examination of blood pressure without abnormal findings Z01.30 [facility] [address] [address] 04/17/2025 Jacquie Normoyle BMI 33.0-33.9,adult Z68.33 ; Moderate obesity E66.9 ; Obstructive sleep apnea G47.33 ; Depression F32.9 and Encounter for examination of blood pressure without abnormal findings Z01.30 [facility] [address] 05/22/2025 Jacquie Normoyle BMI 29.0-29.9,adult Z68.29 ; Obstructive sleep apnea G47.33 ; Moderate obesity E66.9 ; Depression F32.9 and Encounter for examination of blood pressure without abnormal findings Z01.30 [facility] [address] 06/19/2025 Jacquie Normoyle BMI 28.0-28.9,adult Z68.28 ; Obstructive sleep apnea G47.33 ; Depression F32.9 ; Moderate obesity E66.9 and Encounter for examination of blood pressure without abnormal findings Z01.30 [facility] [address] [address] 06/19/2025 Jacquie Normoyle Obstructive sleep apnea G47.33 [facility] [address] [address] 03/17/2025 Jacquie Normoyle [facility] [address] [address] 03/22/2025 Jacquie Normoyle [facility] [address] [address] 04/19/2025 Jacquie Normoyle [facility] [address] [place] [address] 04/19/2025 Jacquie Normoyle Moderate obesity E66 .[address] [facility] [address] [place] [address] 04/19/2025 Jacquie Normoyle Moderate obesity E66 .9 [facility] [address] [place] [address] 04/19/2025 LAURI LEIVA Moderate obesity E66 .9 [facility] [address] [place] [address] 05/02/2025 Jacquie Normoyle [facility] [address] [facility] [address] [place] [address] 05/02/2025 Jacquie Normoyle [facility] [address] [facility] [address] [place] [address] 04/19/2025 Jacquie Normoyle [facility] [address] [address] 05/05/2025 Jacquie Normoyle [facility] [address] [place] [address] 06/15/2025 Jacquie Normoyle [facility] [address] [address] 06/23/2025 Jacquie Normoyle [facility] [address] [place] [address] 06/23/2025 Jacquie Normoyle Moderate obesity E66 .9 Assessments Encounter Date Diagnosis (ICD Code) Assessment [...] Patient follows with sleep study service in [facility], and is requesting referral to nearby sleep medicine services. She does have a CPAP at home. Continue nocturnal CPAP. Start Zepbound 2.5 mg weekly injections to help with GEORGES. Cortisol donor recruitment manager started today. Referral to sleep medicine [...] level. Consider using apps like 7 minute exceMuchasaise, CiteHealthpal, lose it, stick as needed for self-monitoring and weight management. Consider group exercises. Consider hiring a personal banking assistant. Regular exercise is castro to sustainable health [...] counseling and psychiatry and Dr Chambers at [facility]. We would like to cover regular topics [...] Dictation was accomplished with the use of iBoxPay voice recognition software, prone to medical misidentifications [...] Patient follows with sleep study service in [facility], and is requesting referral to nearby sleep medicine services. She does have a CPAP at home. Continue nocturnal CPAP. Start Zepbound 2.5 mg weekly injections to help with GEORGES. Cortisol donor recruitment manager started today. Referral to sleep medicine [...] Consider using apps like 7 minute excercise, CiteHealthpal, lose it, stick as needed for self-monitoring and weight management. Consider group exercises. Consider hiring a personal banking assistant. Regular exercise is castro to sustainable health [...] counseling and psychiatry and Dr Chambers at [facility]. We would like to cover regular topics [...] Dictation was accomplished with the use of iBoxPay voice recognition software, prone to medical misidentifications [...] Consider group exercises. Consider hiring a personal banking assistant. Regular exercise is castro to sustainable health [...] counseling and psychiatry and Dr Chambers at [facility]. We would like to cover regular topics [...] Dictation was accomplished with the use of iBoxPay voice recognition software, prone to medical misidentifications [...] Consider using apps like 7 minute excercise, CiteHealthpal, lose it, stick as needed for self-monitoring and weight management. Consider group exercises. Consider hiring a personal banking assistant. Regular exercise is castro to sustainable health [...] counseling and psychiatry and Dr Chambers at [facility]. We would like to cover regular topics [...] Dictation was accomplished with the use of iBoxPay voice recognition software, prone to medical misidentifications and grammatical errors. This is unintentional and the practitioner does try to identify and correct these, but some could still be present. Please do not hesitate to contact practitioner for clarification. All questions answered to patients satisfaction. Patient verbalized understanding of diagnosis and treatments explained. To call sooner prior to next visit it any questions/concerns arise. 06/19/2025 BMI 28.0-28.9,adul t (ICD-10 - Z68.28) Deb is a 49-year-old female with past [...] of lifestyle modifications. Follow-up in 4 weeks. 06/19/2025: Weight 166.3 pounds, BMI 28.9. Congratulated on effort. Continues on phentermine 15 mg daily. On review of body composition scan, skeletal muscle mass decreased 1 pound, fat mass decreased 3 pounds, visceral adipose tissue decreased from 3.4-3.0, waist circumference decreased 1 inch. Since starting with weight management 3 months ago on 03/17/2025, she successfully lost 11 pounds with lifestyle modifications and phentermine. Plan to resubmit PA for Zepbound today. Plan to start Zepbound 2.5 mg weekly injections. Discussed administration and side effects including constipation, nausea, heartburn, reflux. Will follow-up in 4 weeks. Patient is not taking other GLP-1's or weight loss medications combined with Zepbound. #Obstructive sleep apnea: Had a CPAP years ago but has since broken. Referral to sleep medicine services was placed previous visit. Pending appointment. #Depression: Patient does have [...] Consider using apps like 7 minute excercise, myPlanet Metricspal, lose it, stick as needed for self-monitoring and weight management. Consider group exercises. Consider hiring a personal banking assistant. Regular exercise is castro to sustainable health [...] counseling and psychiatry and Dr Chambers at [facility]. We would like to cover regular topics [...] Dictation was accomplished with the use of iBoxPay voice recognition software, prone to medical misidentifications and grammatical errors. This is unintentional and the practitioner does try to identify and correct these, but some could still be present. Please do not hesitate to contact practitioner for clarification. All questions answered to patients satisfaction. Patient verbalized understanding of diagnosis and treatments explained. To call sooner prior to next visit it any questions/concerns arise. 06/23/2025 Moderate obesity (ICD-10 - E66.9) 06/19/2025 Obstructive sleep apnea (ICD-10 - G47.33) Electronic Prior Authorization was requested for Zepbound 2.5 MG/0.5ML Solution Auto-injector. Provider can order medication once approval received. Electronic Prior Authorization was requested for Zepbound 2.5 MG/0.5ML Solution Auto-injector. Provider can order medication once approval received. 04/17/2025 Obstructive sleep apnea (ICD-10 - G47.33) [...] Consider using apps like 7 minute excercise, myFreedom Financial Networknesspal, lose it, stick as needed for self-monitoring and weight management. Consider group exercises. Consider hiring a personal banking assistant. Regular exercise is castro to sustainable health [...] counseling and psychiatry and Dr Chambers at [facility]. We would like to cover regular topics [...] Dictation was accomplished with the use of iBoxPay voice recognition software, prone to medical misidentifications [...] level. Consider using apps like 7 minute exceMuchasaise, CiteHealthpal, lose it, stick as needed for self-monitoring and weight management. Consider group exercises. Consider hiring a personal banking assistant. Regular exercise is castro to sustainable health [...] counseling and psychiatry and Dr Chambers at [facility]. We would like to cover regular topics [...] Dictation was accomplished with the use of iBoxPay voice recognition software, prone to medical misidentifications [...] Consider group exercises. Consider hiring a personal banking assistant. Regular exercise is castro to sustainable health [...] counseling and psychiatry and Dr Chambers at [facility]. We would like to cover regular topics [...] Dictation was accomplished with the use of iBoxPay voice recognition software, prone to medical misidentifications and grammatical errors. This is unintentional and the practitioner does try to identify and correct these, but some could still be present. Please do not hesitate to contact practitioner for clarification. All questions answered to patients satisfaction. Patient verbalized understanding of diagnosis and treatments explained. To call sooner prior to next visit it any questions/concerns arise. 06/19/2025 Obstructive sleep apnea (ICD-10 - G47.33) Deb [...] of lifestyle modifications. Follow-up in 4 weeks. 06/19/2025: Weight 166.3 pounds, BMI 28.9. Congratulated on effort. Continues on phentermine 15 mg daily. On review of body composition scan, skeletal muscle mass decreased 1 pound, fat mass decreased 3 pounds, visceral adipose tissue decreased from 3.4-3.0, waist circumference decreased 1 inch. Since starting with weight management 3 months ago on 03/17/2025, she successfully lost 11 pounds with lifestyle modifications and phentermine. Plan to resubmit PA for Zepbound today. Plan to start Zepbound 2.5 mg weekly injections. Discussed administration and side effects including constipation, nausea, heartburn, reflux. Will follow-up in 4 weeks. Patient is not taking other GLP-1's or weight loss medications combined with Zepbound. #Obstructive sleep apnea: Had a CPAP years ago but has since broken. Referral to sleep medicine services was placed previous visit. Pending appointment. #Depression: Patient does have [...] Consider group exercises. Consider hiring a personal banking assistant. Regular exercise is castro to sustainable health [...] counseling and psychiatry and Dr Chambers at [facility]. We would like to cover regular topics [...] Dictation was accomplished with the use of iBoxPay voice recognition software, prone to medical misidentifications [...] Patient follows with sleep study service in [facility], and is requesting referral to nearby sleep medicine services. She does have a CPAP at home. Continue nocturnal CPAP. Start Zepbound 2.5 mg weekly injections to help with GEORGES. Cortisol donor recruitment manager started today. Referral to sleep medicine [...] Consider group exercises. Consider hiring a personal banking assistant. Regular exercise is castro to sustainable health [...] counseling and psychiatry and Dr Chambers at [facility]. We would like to cover regular topics [...] Dictation was accomplished with the use of iBoxPay voice recognition software, prone to medical misidentifications [...] Patient follows with sleep study service in [facility], and is requesting referral to nearby sleep medicine services. She does have a CPAP at home. Continue nocturnal CPAP. Start Zepbound 2.5 mg weekly injections to help with GEORGES. Cortisol donor recruitment manager started today. Referral to sleep medicine [...] Consider using apps like 7 minute excercise, myPlanet Metricspal, lose it, stick as needed for self-monitoring and weight management. Consider group exercises. Consider hiring a personal banking assistant. Regular exercise is castro to sustainable health [...] counseling and psychiatry and Dr Chambers at [facility]. We would like to cover regular topics [...] Dictation was accomplished with the use of iBoxPay voice recognition software, prone to medical misidentifications [...] Consider using apps like 7 minute excercise, myPlanet Metricspal, lose it, stick as needed for self-monitoring and weight management. Consider group exercises. Consider hiring a personal banking assistant. Regular exercise is castro to sustainable health [...] counseling and psychiatry and Dr Chambers at [facility]. We would like to cover regular topics [...] Dictation was accomplished with the use of iBoxPay voice recognition software, prone to medical misidentifications [...] Consider using apps like 7 minute excercise, SuperGennesspal, lose it, stick as needed for self-monitoring and weight management. Consider group exercises. Consider hiring a personal banking assistant. Regular exercise is castro to sustainable health [...] counseling and psychiatry and Dr Chambers at [facility]. We would like to cover regular topics [...] Dictation was accomplished with the use of iBoxPay voice recognition software, prone to medical misidentifications [...] Consider group exercises. Consider hiring a personal banking assistant. Regular exercise is castro to sustainable health [...] counseling and psychiatry and Dr Chambers at [facility]. We would like to cover regular topics [...] Dictation was accomplished with the use of iBoxPay voice recognition software, prone to medical misidentifications and grammatical errors. This is unintentional and the practitioner does try to identify and correct these, but some could still be present. Please do not hesitate to contact practitioner for clarification. All questions answered to patients satisfaction. Patient verbalized understanding of diagnosis and treatments explained. To call sooner prior to next visit it any questions/concerns arise. 06/19/2025 Depression (ICD-10 - F32.9) Deb is a [...] of lifestyle modifications. Follow-up in 4 weeks. 06/19/2025: Weight 166.3 pounds, BMI 28.9. Congratulated on effort. Continues on phentermine 15 mg daily. On review of body composition scan, skeletal muscle mass decreased 1 pound, fat mass decreased 3 pounds, visceral adipose tissue decreased from 3.4-3.0, waist circumference decreased 1 inch. Since starting with weight management 3 months ago on 03/17/2025, she successfully lost 11 pounds with lifestyle modifications and phentermine. Plan to resubmit PA for Zepbound today. Plan to start Zepbound 2.5 mg weekly injections. Discussed administration and side effects including constipation, nausea, heartburn, reflux. Will follow-up in 4 weeks. Patient is not taking other GLP-1's or weight loss medications combined with Zepbound. #Obstructive sleep apnea: Had a CPAP years ago but has since broken. Referral to sleep medicine services was placed previous visit. Pending appointment. #Depression: Patient does have [...] Consider using apps like 7 minute excercise, CiteHealthpal, lose it, stick as needed for self-monitoring and weight management. Consider group exercises. Consider hiring a personal banking assistant. Regular exercise is castro to sustainable health [...] counseling and psychiatry and Dr Chambers at [facility]. We would like to cover regular topics [...] Dictation was accomplished with the use of iBoxPay voice recognition software, prone to medical misidentifications and grammatical errors. This is unintentional and the practitioner does try to identify and correct these, but some could still be present. Please do not hesitate to contact practitioner for clarification. All questions answered to patients satisfaction. Patient verbalized understanding of diagnosis and treatments explained. To call sooner prior to next visit it any questions/concerns arise. 06/19/2025 Moderate obesity (ICD-10 - E66.9) Deb is [...] of lifestyle modifications. Follow-up in 4 weeks. 06/19/2025: Weight 166.3 pounds, BMI 28.9. Congratulated on effort. Continues on phentermine 15 mg daily. On review of body composition scan, skeletal muscle mass decreased 1 pound, fat mass decreased 3 pounds, visceral adipose tissue decreased from 3.4-3.0, waist circumference decreased 1 inch. Since starting with weight management 3 months ago on 03/17/2025, she successfully lost 11 pounds with lifestyle modifications and phentermine. Plan to resubmit PA for Zepbound today. Plan to start Zepbound 2.5 mg weekly injections. Discussed administration and side effects including constipation, nausea, heartburn, reflux. Will follow-up in 4 weeks. Patient is not taking other GLP-1's or weight loss medications combined with Zepbound. #Obstructive sleep apnea: Had a CPAP years ago but has since broken. Referral to sleep medicine services was placed previous visit. Pending appointment. #Depression: Patient does have [...] Consider using apps like 7 minute excercise, CiteHealthpal, lose it, stick as needed for self-monitoring and weight management. Consider group exercises. Consider hiring a personal banking assistant. Regular exercise is castro to sustainable health [...] counseling and psychiatry and Dr Chambers at [facility]. We would like to cover regular topics [...] Dictation was accomplished with the use of iBoxPay voice recognition software, prone to medical misidentifications and grammatical errors. This is unintentional and the practitioner does try to identify and correct these, but some could still be present. Please do not hesitate to contact practitioner for clarification. All questions answered to patients satisfaction. Patient verbalized understanding of diagnosis and treatments explained. To call sooner prior to next visit it any questions/concerns arise. 06/19/2025 Encounter for examination of blood pressure without [...] of lifestyle modifications. Follow-up in 4 weeks. 06/19/2025: Weight 166.3 pounds, BMI 28.9. Congratulated on effort. Continues on phentermine 15 mg daily. On review of body composition scan, skeletal muscle mass decreased 1 pound, fat mass decreased 3 pounds, visceral adipose tissue decreased from 3.4-3.0, waist circumference decreased 1 inch. Since starting with weight management 3 months ago on 03/17/2025, she successfully lost 11 pounds with lifestyle modifications and phentermine. Plan to resubmit PA for Zepbound today. Plan to start Zepbound 2.5 mg weekly injections. Discussed administration and side effects including constipation, nausea, heartburn, reflux. Will follow-up in 4 weeks. Patient is not taking other GLP-1's or weight loss medications combined with Zepbound. #Obstructive sleep apnea: Had a CPAP years ago but has since broken. Referral to sleep medicine services was placed previous visit. Pending appointment. #Depression: Patient does have [...] Consider using apps like 7 minute excercise, myPlanet Metricspal, lose it, stick as needed for self-monitoring and weight management. Consider group exercises. Consider hiring a personal banking assistant. Regular exercise is castro to sustainable health [...] counseling and psychiatry and Dr Chambers at [facility]. We would like to cover regular topics [...] Dictation was accomplished with the use of iBoxPay voice recognition software, prone to medical misidentifications [...] Consider using apps like 7 minute excercise, myfitPowerDsinepal, lose it, stick as needed for self-monitoring and weight management. Consider group exercises. Consider hiring a personal banking assistant. Regular exercise is castro to sustainable health [...] counseling and psychiatry and Dr Chambers at [facility]. We would like to cover regular topics [...] Dictation was accomplished with the use of iBoxPay voice recognition software, prone to medical misidentifications [...] pressure without abnormal findings (ICD-10 - Z01.30) eDb is a 49-year-old female with past medical [...] Consider using apps like 7 minute excercise, CiteHealthpal, lose it, stick as needed for self-monitoring and weight management. Consider group exercises. Consider hiring a personal banking assistant. Regular exercise is castro to sustainable health [...] counseling and psychiatry and Dr Chambers at [facility]. We would like to cover regular topics [...] Dictation was accomplished with the use of iBoxPay voice recognition software, prone to medical misidentifications [...] Patient follows with sleep study service in [facility], and is requesting referral to nearby sleep medicine services. She does have a CPAP at home. Continue nocturnal CPAP. Start Zepbound 2.5 mg weekly injections to help with GEORGES. Cortisol donor recruitment manager started today. Referral to sleep medicine [...] reading books called The Food Rules by Ryedr Cordero and Eat Fat Get Lean by [...] Consider using apps like 7 minute excercise, myPlanet Metricspal, lose it, stick as needed for self-monitoring and weight management. Consider group exercises. Consider hiring a personal banking assistant. Regular exercise is castro to sustainable health [...] counseling and psychiatry and Dr Chambers at [facility]. We would like to cover regular topics [...] Dictation was accomplished with the use of iBoxPay voice recognition software, prone to medical misidentifications [...] Date EKG 04/17/2025 Next Appt Details Provider Name:Jacuqie cage, 07/17/2025 01:15:00 PM, [address] [facility], [facility] [address], [place], [address], Insurance Providers Payer Name Payer Address Payer Phone Subscriber Number Group Number Insured Name Patient Relationship to Insured Coverage Start Date Coverage End Date [facility] [address] [facility] [id number] DEB BEARD Self - patient is the insured 4 Medical (General) History Medical History History ICD Code 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
== END ==
LOC: HO.CARD 10:10
PROVIDERS: PCP Physician Assistant; Visit Provider Physician Assistant
DX: I95.9 Hypotension, unspecified (principal); R53.82 Chronic fatigue, unspecified
CPT/HCPCS: 93306

== ENCOUNTER → 2025-06-26 10:13 | Outpatient (BNV) | payer OTHER, SELFPAY | PROVIDERS: PCP Physician Assistant; Visit Provider Internal Medicine | DX: R53.82 Chronic fatigue, unspecified (principal) | CPT/HCPCS: 93306 ==

== ENCOUNTER → 2025-06-28 14:06 | Outpatient (REF) | payer OTHER, SELFPAY ==
--- OUTSIDE RECORDS SUMMARY | 2025-06-28 17:52 | XMS_ITS | Clinical Summary ---
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 Overview (09/29/2024): Follows with [facility] Fibromyalgia 02/03/2019 Depression 02/24/2018 Chronic pain [...] RECONSTRUCTION; COMMENT: augmentation OTHER SURGICAL HISTORY PROCEDURE: [facility] ARTHROS[facility] SHOULDER LMTD DBRDMT 10/13; COMMENT: [...] RESULTING AGENCY - 03/15/2018 2:38 PM EDT [id number] THINPREP PAP, IMAGED: NEGATIVE FOR SQUAMOUS INTRAEPITHELIAL [...] Recently Relevant to Health Maintenance Insurance MEDICARE [facility] Advance Directives Documents on File Type Date Recorded Patient Lath Hand Expl anation Health Care Decision (hx) 01/07/2023 AD MESA DIRECTIVE Health Care Decision (hx) 01/07/2023 AD MESA DIRECTIVE Health Care Decision (hx) 01/07/2023 AD MESA DIRECTIVE Care Teams Nurse First Aid Relationship Specialty Start Date End Date Betito Rico PA [address] [place] [address] PCP - General Physician Police Lieutenant 11/08/24
--- OUTSIDE RECORDS SUMMARY | 2025-06-28 17:52 | XMS_ITS | Patient Health Record ---
Author Organization [facility] Address [address] [place] [address] Care Team Providers Care Critical Care Nurse Name Role Phone Betito Rico Primary Care Provider Unavailab Jacquie Card Unavailable [phone] LAURI LEIVA Unavailable [phone] Allergies Allergen (clinical drug ingredient) Drug/Non Drug [...] Obstructive sleep ap aida (G47.33) Referral Organization [facility] Referring Provider First Name Jacquie Referring Provider Last Name Ted Referring Provider Speciality Internal M edicine Referred Provider Specialty Pulmonology General Notes Shweta Kirkland 08/2025 08:34:17 AM > referral form faxed to [phone] and pt given phone [phone] Clinical Notes Sparkle Reynolds 02:49:32 PM > [...] Status Risk Notes Problem Obstructive sleep apnea (78236988) Obstructive sleep apnea (G47.33) Active confirmed Problem Obese class I (969602499509632 ) BMI 33.0-33.9,adult (Z68.33) Active confirmed Problem Body mass index 30.00 to 34.99 (257894109649990 ) BMI 31.0-31.9,adult (Z68.31) Active confirmed Problem Depression (115248785) Depression (F32.9) Active confirmed Problem Obesity (378511313) Moderate obesity (E66.9) Active confirmed Vital Signs Heart Rate 81 /min 06/19/2025 Oximetry 97 % 06/19/2025 Blood pressure diastolic 80 mm Hg 06/19/2025 Height 63 in 06/19/2025 Blood pressure systolic 112 mm Hg 06/19/2025 Weight 166.3 lbs 06/19/2025 BMI 29.46 kg/m2 06/19/2025 Encounters Encounter Location Date Provider Diagnosis [facility] [address] [address] 03/17/2025 Jacquie Normoyle Moderate obesity E66 .9 ; BMI 31.0-31.9,adult Z68.31 ; Obstructive sleep apnea G47.33 ; Depression F32.9 and Encounter for examination of blood pressure without abnormal findings Z01.30 [facility] [address] [address] 04/17/2025 Jacquie Normoyle BMI 33.0-33.9,adult Z68.33 ; Moderate obesity E66.9 ; Obstructive sleep apnea G47.33 ; Depression F32.9 and Encounter for examination of blood pressure without abnormal findings Z01.30 [facility] [address] 05/22/2025 Jacquie Normoyle BMI 29.0-29.9,adult Z68.29 ; Obstructive sleep apnea G47.33 ; Moderate obesity E66.9 ; Depression F32.9 and Encounter for examination of blood pressure without abnormal findings Z01.30 [facility] [address] 06/19/2025 Jacquie Normoyle BMI 28.0-28.9,adult Z68.28 ; Obstructive sleep apnea G47.33 ; Depression F32.9 ; Moderate obesity E66.9 and Encounter for examination of blood pressure without abnormal findings Z01.30 [facility] [address] [address] 06/19/2025 Jacquie Normoyle Obstructive sleep apnea G47.33 [facility] [address] [address] 03/17/2025 Jacquie Normoyle [facility] [address] [address] 03/22/2025 Jacquie Normoyle [facility] [address] [address] 04/19/2025 Jacquie Normoyle [facility] [address] [place] [address] 04/19/2025 Jacquie Normoyle Moderate obesity E66 [address] [facility] [address] [place] [address] 04/19/2025 Jacquie Normoyle Moderate obesity E66 .9 [facility] [address] [place] [address] 04/19/2025 LAURI LEIVA Moderate obesity E66 .9 [facility] [address] [place] [address] 05/02/2025 Jacquie Normoyle [facility] [address] [facility] [address] [place] [address] 05/02/2025 Jacquie Normoyle [facility] [address] [facility] [address] [place] [address] 04/19/2025 Jacquie Normoyle [facility] [address] [address] 05/05/2025 Jacquie Normoyle [facility] [address] [place] [address] 06/15/2025 Jacquie Normoyle [facility] [address] [address] 06/23/2025 Jacquie Normoyle [facility] [address] [place] [address] 06/23/2025 Jacquie Normoyle Moderate obesity E66 .9 [...] Patient follows with sleep study service in [facility], and is requesting referral to nearby sleep medicine services. She does have a CPAP at home. Continue nocturnal CPAP. Start Zepbound 2.5 mg weekly injections to help with GEORGES. Cortisol artist relationship manager started today. Referral to sleep medicine [...] level. Consider using apps like 7 minute exceSumUpise, DIY Geniuspal, lose it, stick as needed for self-monitoring and weight management. Consider group exercises. Consider hiring a head athletic trainer/strength coach. Regular exercise is castro to sustainable health [...] counseling and psychiatry and Dr Chambers at [facility]. We would like to cover regular topics [...] Dictation was accomplished with the use of [employer] voice recognition software, prone to medical misidentifications [...] Patient follows with sleep study service in [facility], and is requesting referral to nearby sleep medicine services. She does have a CPAP at home. Continue nocturnal CPAP. Start Zepbound 2.5 mg weekly injections to help with GEORGES. Cortisol artist relationship manager started today. Referral to sleep medicine [...] Consider using apps like 7 minute excercise, DIY Geniuspal, lose it, stick as needed for self-monitoring and weight management. Consider group exercises. Consider hiring a head athletic trainer/strength coach. Regular exercise is castro to sustainable health [...] counseling and psychiatry and Dr Chambers at [facility]. We would like to cover regular topics [...] Dictation was accomplished with the use of [employer] voice recognition software, prone to medical misidentifications [...] management. Consider group exercises. Consider hiring a head athletic trainer/strength coach. Regular exercise is castro to sustainable health [...] counseling and psychiatry and Dr Chambers at [facility]. We would like to cover regular topics [...] Dictation was accomplished with the use of [employer] voice recognition software, prone to medical misidentifications [...] Consider using apps like 7 minute excercise, DIY Geniuspal, lose it, stick as needed for self-monitoring and weight management. Consider group exercises. Consider hiring a head athletic trainer/strength coach. Regular exercise is castro to sustainable health [...] counseling and psychiatry and Dr Chambers at [facility]. We would like to cover regular topics [...] Dictation was accomplished with the use of [employer] voice recognition software, prone to medical misidentifications [...] Consider using apps like 7 minute excercise, mySecure Outcomespal, lose it, stick as needed for self-monitoring and weight management. Consider group exercises. Consider hiring a head athletic trainer/strength coach. Regular exercise is castro to sustainable health [...] counseling and psychiatry and Dr Chambers at [facility]. We would like to cover regular topics [...] Dictation was accomplished with the use of [employer] voice recognition software, prone to medical misidentifications [...] Consider using apps like 7 minute excercise, myMocapaynesspal, lose it, stick as needed for self-monitoring and weight management. Consider group exercises. Consider hiring a head athletic trainer/strength coach. Regular exercise is castro to sustainable health [...] counseling and psychiatry and Dr Chambers at [facility]. We would like to cover regular topics [...] Dictation was accomplished with the use of [employer] voice recognition software, prone to medical misidentifications [...] level. Consider using apps like 7 minute exceSumUpise, DIY Geniuspal, lose it, stick as needed for self-monitoring and weight management. Consider group exercises. Consider hiring a head athletic trainer/strength coach. Regular exercise is castro to sustainable health [...] counseling and psychiatry and Dr Chambers at [facility]. We would like to cover regular topics [...] Dictation was accomplished with the use of [employer] voice recognition software, prone to medical misidentifications [...] management. Consider group exercises. Consider hiring a head athletic trainer/strength coach. Regular exercise is castro to sustainable health [...] counseling and psychiatry and Dr Chambers at [facility]. We would like to cover regular topics [...] Dictation was accomplished with the use of [employer] voice recognition software, prone to medical misidentifications [...] management. Consider group exercises. Consider hiring a head athletic trainer/strength coach. Regular exercise is castro to sustainable health [...] counseling and psychiatry and Dr Chambers at [facility]. We would like to cover regular topics [...] Dictation was accomplished with the use of [employer] voice recognition software, prone to medical misidentifications [...] Patient follows with sleep study service in [facility], and is requesting referral to nearby sleep medicine services. She does have a CPAP at home. Continue nocturnal CPAP. Start Zepbound 2.5 mg weekly injections to help with GEORGES. Cortisol artist relationship manager started today. Referral to sleep medicine [...] management. Consider group exercises. Consider hiring a head athletic trainer/strength coach. Regular exercise is castro to sustainable health [...] counseling and psychiatry and Dr Chambers at [facility]. We would like to cover regular topics [...] Dictation was accomplished with the use of [employer] voice recognition software, prone to medical misidentifications [...] Patient follows with sleep study service in [facility], and is requesting referral to nearby sleep medicine services. She does have a CPAP at home. Continue nocturnal CPAP. Start Zepbound 2.5 mg weekly injections to help with GEORGES. Cortisol artist relationship manager started today. Referral to sleep medicine [...] Consider using apps like 7 minute excercise, mySecure Outcomespal, lose it, stick as needed for self-monitoring and weight management. Consider group exercises. Consider hiring a head athletic trainer/strength coach. Regular exercise is castro to sustainable health [...] counseling and psychiatry and Dr Chambers at [facility]. We would like to cover regular topics [...] Dictation was accomplished with the use of [employer] voice recognition software, prone to medical misidentifications [...] Consider using apps like 7 minute excercise, mySecure Outcomespal, lose it, stick as needed for self-monitoring and weight management. Consider group exercises. Consider hiring a head athletic trainer/strength coach. Regular exercise is castro to sustainable health [...] counseling and psychiatry and Dr Chambers at [facility]. We would like to cover regular topics [...] Dictation was accomplished with the use of [employer] voice recognition software, prone to medical misidentifications [...] Consider using apps like 7 minute excercise, LabRootsnesspal, lose it, stick as needed for self-monitoring and weight management. Consider group exercises. Consider hiring a head athletic trainer/strength coach. Regular exercise is castro to sustainable health [...] counseling and psychiatry and Dr Chambers at [facility]. We would like to cover regular topics [...] Dictation was accomplished with the use of [employer] voice recognition software, prone to medical misidentifications [...] management. Consider group exercises. Consider hiring a head athletic trainer/strength coach. Regular exercise is castro to sustainable health [...] counseling and psychiatry and Dr Chambers at [facility]. We would like to cover regular topics [...] Dictation was accomplished with the use of [employer] voice recognition software, prone to medical misidentifications [...] Consider using apps like 7 minute excercise, DIY Geniuspal, lose it, stick as needed for self-monitoring and weight management. Consider group exercises. Consider hiring a head athletic trainer/strength coach. Regular exercise is castro to sustainable health [...] counseling and psychiatry and Dr Chambers at [facility]. We would like to cover regular topics [...] Dictation was accomplished with the use of [employer] voice recognition software, prone to medical misidentifications [...] Consider using apps like 7 minute excercise, DIY Geniuspal, lose it, stick as needed for self-monitoring and weight management. Consider group exercises. Consider hiring a head athletic trainer/strength coach. Regular exercise is castro to sustainable health [...] counseling and psychiatry and Dr Chambers at [facility]. We would like to cover regular topics [...] Dictation was accomplished with the use of [employer] voice recognition software, prone to medical misidentifications [...] Consider using apps like 7 minute excercise, mySecure Outcomespal, lose it, stick as needed for self-monitoring and weight management. Consider group exercises. Consider hiring a head athletic trainer/strength coach. Regular exercise is castro to sustainable health [...] counseling and psychiatry and Dr Chambers at [facility]. We would like to cover regular topics [...] Dictation was accomplished with the use of [employer] voice recognition software, prone to medical misidentifications [...] Consider using apps like 7 minute excercise, myfitRestorandopal, lose it, stick as needed for self-monitoring and weight management. Consider group exercises. Consider hiring a head athletic trainer/strength coach. Regular exercise is castro to sustainable health [...] counseling and psychiatry and Dr Chambers at [facility]. We would like to cover regular topics [...] counseling Case discussed with collaborating physician Yvette Setxon who reviewed the assessment and plan. Chart, medications, labs, vital signs reviewed. Dictation was accomplished with the use of [employer] voice recognition software, prone to medical misidentifications [...] Consider using apps like 7 minute excercise, DIY Geniuspal, lose it, stick as needed for self-monitoring and weight management. Consider group exercises. Consider hiring a head athletic trainer/strength coach. Regular exercise is castro to sustainable health [...] counseling and psychiatry and Dr Chambers at [facility]. We would like to cover regular topics [...] Dictation was accomplished with the use of [employer] voice recognition software, prone to medical misidentifications [...] Patient follows with sleep study service in [facility], and is requesting referral to nearby sleep medicine services. She does have a CPAP at home. Continue nocturnal CPAP. Start Zepbound 2.5 mg weekly injections to help with GEORGES. Cortisol artist relationship manager started today. Referral to sleep medicine [...] Consider using apps like 7 minute excercise, mySecure Outcomespal, lose it, stick as needed for self-monitoring and weight management. Consider group exercises. Consider hiring a head athletic trainer/strength coach. Regular exercise is castro to sustainable health [...] counseling and psychiatry and Dr Chambers at [facility]. We would like to cover regular topics [...] Dictation was accomplished with the use of [employer] voice recognition software, prone to medical misidentifications [...] Date EKG 04/17/2025 Next Appt Details Provider Name:Jacquie cage, 07/17/2025 01:15:00 PM, [address] [facility], [facility] [address], [place], [address], Insurance Providers Payer Name Payer Address Payer Phone Subscriber Number Group Number Insured Name Patient Relationship to Insured Coverage Start Date Coverage End Date [facility] [address] [facility] [id number] DEB BEARD Self - patient is the insured 4 Medical (General) History Medical History History ICD Code 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
== END ==
LOC: HO.SL 14:06
PROVIDERS: PCP Physician Assistant; Visit Provider Physician Assistant
DX: G47.33 Obstructive sleep apnea (adult) (pediatric) (principal); R06.83 Snoring; R40.0 Somnolence
CPT/HCPCS: 95806

== ENCOUNTER → 2025-06-28 14:16 | Outpatient (BNV) | payer OTHER, SELFPAY | PROVIDERS: PCP Physician Assistant; Visit Provider Internal Medicine | DX: R06.83 Snoring (principal) | CPT/HCPCS: 95806 ==

== ENCOUNTER 2025-07-05 16:19 | Outpatient (AMB) | payer OTHER, SELFPAY ==
[2025-07-05 16:26] VITALS: BP 120/78; PULSE 66; RESP 18; TEMP 36.2; O2SAT 98; BMI 28.8
--- NOTE | 2025-07-05 16:26 | MHC.PC.OV ---
Vital Signs 07/05/25 16:26 Height 5 ft 3 in Weight 162 lb 8 oz BMI 28.8 BP 120/78 Blood Pressure Location Lt brachial Position Sitting Respiration 18 Pulse 66 Pulse Source Pulse Oximeter Temp 97.1 F Temp Source Temporal Artery Scan Pulse Oximetry (%) 98 Oxygen Delivery Method Room Air Intake Visit Reasons: upset stomach Housesmith Required: No Accompanied by: Self / Same As Patient Allergies erythromycin base (ERYTHROMYCIN BASE) Allergy (Severe, Verified 07/05/25 16:27) PANCREATITIS Penicillins (PCN) Allergy (Severe, Verified 07/05/25 16:27) HIVES Medication List - Last Reconciled 07/05/25 by Jeff Beasley MD No Known Home Meds Tobacco use date assessed: 07/05/25 Dental Screening Dental Screen Date: 07/05/25 Did you have a dental visit in the last 12 months?: No Did you have a dental problem in the last 6 months where you did not have access to dental care?: No Was dental information given to patient?: No HPI HPI Comments History of Present Illness Details The patient is a 50-year-old female presenting with abdominal bloating, early satiety, and gastrointestinal symptoms. She reports a sensation of bloating and fullness in the abdomen, which has persisted for the past month. The patient describes a constricted feeling in the abdomen, accompanied by intermittent pain and cramping. She has experienced vomiting and diarrhea, with episodes of nausea triggered by certain tastes and even brushing her teeth. The vomiting sometimes involves undigested food and bile, but no blood is present. The patient has a history of Juan-Danlos syndrome, which may contribute to her gastrointestinal symptoms. She also reports chronic pain and brain fog, which are consistent with her known condition. She has stopped taking phentermine and Adderall, which she had been using for weight management, but the symptoms persist. The patient has not undergone any recent surgeries and last had a colonoscopy over a year ago. She reports mood disturbances, which she attributes to the loss of her daughter nearly two years ago. The patient is open to therapy and has requested a referral for mental health support. [facility] Medical History Feeling suicidal Depression Osteoarthritis Depression GERD (gastroesophageal reflux disease) Atypical chest pain GEORGES (obstructive sleep apnea) On anticoagulant therapy Menorrhagia Pulmonary embolism Syncope and collapse Subchondral sclerosis EDS (Juan-Danlos syndrome) Surgical History Hx of colonoscopy Hx of hand surgery History of endometrial ablation H/O bilateral breast reduction surgery Hx of section History of back surgery H/O knee surgery H/O shoulder surgery (~02/2019) Family History Paternal Aunt Breast cancer Father Diabetes High cholesterol HTN (hypertension) Maternal Uncle Stroke Maternal Grandfather Emphysema lung Lung cancer Maternal Grandmother Asthma Son Asthma Social History Household Members: Children Housing: Apartment Do you presently have visiting nurse or other home services: No Alcohol intake: never Comment: stated was minimal Patient Tobacco Use Status: Never used Tobacco Tobacco use type: Cigarette e-Cigarette/Vaping Use: Never Used Second Hand Smoke Exposure: No Substance Use Type: Marijuana Advance Directives Date on File: 08/31/20 service: No Current occupational status: employed Current occupation: [employer] Sexual 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/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 Gender identity: Female Cognitive needs: No Hearing needs: No Vision needs: No Female Reproductive History Menstrual Age of Menarche: 14 Questionnaire Thrive Questionnaire Date Thrive assessed: 03/07/25 I am a: Patient What is your living situation today?: I have a steady place to live Within the past 12 months, did the food you bought not last and you didn't have the money to get more?: Never true Within the past 12 months, did you worry whether your food would run out before you got money to buy more?: Never true Do you have trouble paying for medicines?: No Do you have trouble getting transportation to medical appointments?: No Do you have trouble paying your heating and electricity bill?: No Do you have trouble taking care of your child, family member or friend?: No Do you have trouble with day-to-day activities such as bathing, preparing meals, shopping, managing finances, etc.?: No Are you currently unemployed and looking for a job?: No Are you interested in more education?: No Please select the resources that you would like help with: None Currently or been in a relationship where the following occur: I choose not to answer THRIVE Score: 0 ARLENE-7 AMB Questionnaire ARLENE-7 Date ARLENE - 7 assessed: 03/07/25 Source: Developed by Drs. Joseluis Chew, Tameka Lane, Jose J Josue and colleagues, with an educational ligia from [employer]. Review of Systems Const Details: Positives besides what was mentioned in HPI are in BOLD Constitutional: No Weight Change, No Fever, No Chills, No Night Sweats, No Fatigue, No Malaise ENT/Mouth: No Hearing Changes, No Ear Pain, No Nasal Congestion, No Sinus Pain, No Hoarseness, No sore throat, No Rhinorrhea, No Swallowing Difficulty Eyes: No Eye Pain, No Swelling, No Redness, No Foreign Body, No Discharge, No Vision Changes Cardiovascular: No Chest Pain, No SOB, No PND, No Dyspnea on Exertion, No Orthopnea, No Claudication, No Edema, No Palpitations Respiratory: No Cough, No Sputum, No Wheezing, No Smoke Exposure, No Dyspnea Gastrointestinal: No Nausea, No Vomiting, No Diarrhea, No Constipation, No Pain, No Heartburn, No Anorexia, No Dysphagia, No Hematochezia, No Melena, No Flatulence, No Jaundice Genitourinary: No Dysmenorrhea, No DUB, No Dyspareunia, No Dysuria, No Urinary Frequency, No Hematuria, No Urinary Incontinence, No Urgency, No Flank Pain, No Urinary Flow Changes, No Hesitancy Musculoskeletal: No Arthralgias, No Myalgias, No Joint Swelling, No Joint Stiffness, No Back Pain, No Neck Pain, No Injury History Skin: No Skin Lesions, No Pruritis, No Hair Changes, No Breast/Skin Changes, No Nipple Discharge Neuro: No Weakness, No Numbness, No Paresthesias, No Loss of Consciousness, No Syncope, No Dizziness, No Headache, No Coordination Changes, No Recent Falls Psych: No Anxiety/Panic, No Depression, No Insomnia, No Personality Changes, No Delusions, No Rumination, No SI/HI/AH/VH, No Social Issues, No Memory Changes, No Violence/Abuse Hx., No Eating Concerns Heme/Lymph: No Bruising, No Bleeding, No Transfusions History, No Lymphadenopathy Endocrine: No Polyuria, No Polydipsia, No Temperature Intolerance Physical exam (Primary Care) Vital Signs: Last Vital Signs Temp 97.1 F 07/05/25 16:26 Pulse 66 07/05/25 16:26 Resp 18 07/05/25 16:26 BP 120/78 07/05/25 16:26 Pulse Ox 98 07/05/25 16:26 Oxygen Delivery Method Room Air 07/05/25 16:26 BMI result Body Mass Index 28.8 Tobacco/Smoking Status: Tobacco use Status Tobacco use date assessed 07/05/25 07/05/25 16:30 Patient Tobacco Use Status Never used Tobacco 07/05/25 16:30 Tobacco use type Cigarette 07/05/25 16:30 e-Cigarette/Vaping Use Never Used 07/05/25 16:30 Thrive Assessment: Date of Thrive Assessment Date Thrive assessed 03/07/25 07/05/25 16:30 Currently or been in a relationship where the following occur: I choose not to answer Const Other: Pertinent findings are in BOLD GENERAL APPEARANCE NAD, activity normal for age, well developed/ well nourished, no cyanosis, pallor, or diaphoresis. EYES lids/conjunctiva normal. EARS/NOSE/THROAT Mucous membranes moist, nares normal, lips/teeth normal uvula midline without oral pharyngeal erythema, exudate or swelling TMs normal bilaterally. No lymphangitis/lymphedema. HEAD/NECK normocephalic atraumatic, no facial trauma, neck is supple. RESPIRATORY respiratory effort normal, speaks in full sentences, no tripod position, no accessory muscle use. Lungs clear to auscultation without rhonchi, wheezes, rales CARDIAC Regular rate and rhythm, no edema. ABDOMINAL Soft, ND/NT. No evidence of fluid wave. No pulsatile masses on exam, rebound tenderness, Doss sign or pain over Mcburney's point. Bloated, hyperactive bowels. MUSCLES/EXTREMITIES No abnormal range of motion, no swelling. SKIN Warm, pink and dry. No rashes, dermatoses, petechiae or lesions. NEUROLOGICAL Speech is clear and appropriate. Normal level of consciousness. Gait and coordination are normal. 5/5 strength in all extremities. PSYCH Normal mood and affect. Judgement/competence is appropriate Results AMB Test Urine AMB Test Urine Negative Last Edit by RADHA Ruvalcaba on 07/05/25 16:58 Coding Level of Care Code Est Pt Level 4 (93656) Diagnoses Bloating R14.0 Dysphagia R13.10 MDD (major depressive disorder) F32.9 Time Spent (min) 30 Assessment & Plan Assessment & Plan (1) Bloating: Code(s): R14.0 - Abdominal distension (gaseous) Category: Medical Plan: Simethicone, Miralax, fibers. CT abdomen as symptoms were acute and associated with early satiety and vomiting. GI referral to assist with symptom management. (2) Dysphagia: Code(s): R13.10 - Dysphagia, unspecified Category: Medical Plan: Early satiety, vomiting, food regurgitation. GI referral for potential upper endoscopy. (3) MDD (major depressive disorder): Code(s): F32.9 - Major depressive disorder, single episode, unspecified Category: Medical Plan: Behavioral therapy referral. Nursing navigation referral to assist setting up apointment with therapist. Plan I discussed with the patient the need for a gastroenterology referral to evaluate her gastrointestinal symptoms, including abdominal bloating and vomiting. We talked about using simethicone and dietary changes as interim measures. I also recommended an upper endoscopy to investigate the cause of vomiting undigested food. For her mood disturbances, I suggested a referral to mental health services, which the patient agreed to. Orders: Orders AMB HCG Urine Test Today Z32.02 - Encounter for test, result negative CT abdomen wo IV con Today R14.0 - Abdominal distension (gaseous) Referrals Nurse Navigator Referral F33.1 - Major depressive disorder, recurrent, moderate Gastroenterology Referral R14.0 - Abdominal distension (gaseous) Medications: New polyethylene glycol 3350 (Miralax) 17 grams PO DAILY 119 grams 0RF simethicone (Gas Relief (simethicone)) 80 mg PO BID-QID PRN 30 tabs 3RF abdominal distention psyllium husk (Daily Fiber (psyllium-aspartame)) 3.4 grams PO TID 54 ea 0RF
--- OUTSIDE RECORDS SUMMARY | 2025-07-05 18:07 | XMS_ITS | Clinical Summary ---
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 Overview (09/29/2024): Follows with [facility] Fibromyalgia 02/03/2019 Depression 02/24/2018 Chronic pain syndrome [...] RECONSTRUCTION; COMMENT: augmentation OTHER SURGICAL HISTORY PROCEDURE: [place] SURGICAL ARTHROSCOPY SHOULDER LMTD DBRDMT 10/13; COMMENT: [...] (2 - Td or Tdap) 05/05/2033 05/05/2023 RSV Immunization Adult Patients (1 - 1-dose 75+ series) 2052 HIV Screening Completed 02/03/2014 HIB Vaccines Aged [...] RESULTING AGENCY - 03/15/2018 2:38 PM EDT [id number] THINPREP PAP, IMAGED: NEGATIVE FOR SQUAMOUS INTRAEPITHELIAL [...] RESULTING AGENCY * HIV Screening (02/03/2014) Pathologist [facility] HIV Screening abstracted Historical Provider HEALTH MAINTENANCE Final Result from Last 3 Months or Most Recently Relevant to Health Maintenance Insurance MEDICARE [facility] Advance Directives Documents on File Type Date Recorded 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
--- OUTSIDE RECORDS SUMMARY | 2025-07-05 18:07 | XMS_ITS | Patient Health Record ---
Author Organization [facility] [address] Address [address] [place] [address] Care Team Providers Care Youth Program Director Name Role Phone Betito Rico Primary Care Provider Unavailab Jacquie Card Unavailable [phone] LAURI LEIVA Unavailable [phone] Allergies Allergen (clinical drug ingredient) Drug/Non Drug [...] Obstructive sleep ap aida (G47.33) Referral Organization [facility] Referring Provider First Name Jacquie Referring Provider Last Name Ted Referring Provider Speciality Internal M edicine Referred Provider Specialty Pulmonology General Notes Shweta Kirkland 08/2025 08:34:17 AM > referral form faxed to [phone] and pt given phone [phone] Clinical Notes Sparkle Reynolds 02:49:32 PM > [...] Status Risk Notes Problem Obstructive sleep apnea (55531760) Obstructive sleep apnea (G47.33) Active confirmed Problem Obese class I (033457220297927 ) BMI 33.0-33.9,adult (Z68.33) Active confirmed Problem Body mass index 30.00 to 34.99 (429417405493056 ) BMI 31.0-31.9,adult (Z68.31) Active confirmed Problem Depression (530822040) Depression (F32.9) Active confirmed Problem Obesity (581415263) Moderate obesity (E66.9) Active confirmed Vital Signs Heart Rate 81 /min 06/19/2025 Blood pressure diastolic 80 mm Hg 06/19/2025 Oximetry 97 % 06/19/2025 Height 63 in 06/19/2025 Blood pressure systolic 112 mm Hg 06/19/2025 Weight 166.3 lbs 06/19/2025 BMI 29.46 kg/m2 06/19/2025 Encounters Encounter Location Date Provider Diagnosis [facility] [address] [address] 03/17/2025 Jacquie Normoyle Moderate obesity E66 .9 ; BMI 31.0-31.9,adult Z68.31 ; Obstructive sleep apnea G47.33 ; Depression F32.9 and Encounter for examination of blood pressure without abnormal findings Z01.30 [facility] [address] [address] 04/17/2025 Jacquie Normoyle BMI 33.0-33.9,adult Z68.33 ; Moderate obesity E66.9 ; Obstructive sleep apnea G47.33 ; Depression F32.9 and Encounter for examination of blood pressure without abnormal findings Z01.30 [facility] [address] 05/22/2025 Jacquie Normoyle BMI 29.0-29.9,adult Z68.29 ; Obstructive sleep apnea G47.33 ; Moderate obesity E66.9 ; Depression F32.9 and Encounter for examination of blood pressure without abnormal findings Z01.30 [facility] [address] [address] 06/19/2025 Jacquie Normoyle BMI 28.0-28.9,adult Z68.28 ; Obstructive sleep apnea G47.33 ; Depression F32.9 ; Moderate obesity E66.9 and Encounter for examination of blood pressure without abnormal findings Z01.30 [facility] [address] [address] 03/17/2025 Jacquie Normoyle [facility] [address] 03/22/2025 Jacquie Normoyle [facility] [address] 04/19/2025 Jacquie Normoyle [facility] [address] [address] 04/19/2025 Jacquie Normoyle Moderate obesity E66 .[address] [facility] [address] [place] [address] 04/19/2025 Jacquie Normoyle Moderate obesity E66 .9 [facility] [address] [place] [address] 04/19/2025 LAURI LEIVA Moderate obesity E66 .9 [facility] [address] [place] [address] 05/02/2025 Jacquie Normoyle [facility] [address] [place] [address] 05/02/2025 Jacquie Normoyle [facility] [address] [address] 06/19/2025 Jacquie Normoyle Obstructive sleep apnea G47.33 [facility] [address] [place] [address] 04/19/2025 Jacquie Normoyle [facility] [address] [place] [address] 05/05/2025 Jacquie Normoyle [facility] [address] [place] [address] 06/15/2025 Jacquie Normoyle [facility] [address] [place] [address] 06/23/2025 Jacquie Normoyle [facility] [address] [place] [address] 06/23/2025 Jacquie Normoyle Moderate obesity E66 .9 [facility] [address] [address] 06/29/2025 Jacquie Normoyle [facility] [address] [place] [address] 06/29/2025 Jacquie Normoyle Assessments Encounter Date Diagnosis (ICD [...] weekly injections to help with GEORGES. Cortisol fitness manager started today. Referral to sleep medicine [...] group exercises. Consider hiring a personal banking representative. Regular exercise is castro to sustainable health [...] counseling and psychiatry and Dr Chambers at [facility]. We would like to cover regular topics [...] Dictation was accomplished with the use of GridCure voice recognition software, prone to medical misidentifications [...] weekly injections to help with GEORGES. Cortisol fitness manager started today. Referral to sleep medicine [...] group exercises. Consider hiring a personal banking representative. Regular exercise is castro to sustainable health [...] counseling and psychiatry and Dr Chambers at [facility]. We would like to cover regular topics [...] Dictation was accomplished with the use of GridCure voice recognition software, prone to medical misidentifications [...] Consider using apps like 7 minute excercise, myFOXTOWNpal, lose it, stick as needed for self-monitoring and weight management. Consider group exercises. Consider hiring a personal banking representative. Regular exercise is castro to sustainable health [...] counseling and psychiatry and Dr Chambers at [facility]. We would like to cover regular topics [...] Dictation was accomplished with the use of GridCure voice recognition software, prone to medical misidentifications [...] Consider using apps like 7 minute excercise, Syrmopal, lose it, stick as needed for self-monitoring and weight management. Consider group exercises. Consider hiring a personal banking representative. Regular exercise is castro to sustainable health [...] counseling and psychiatry and Dr Chambers at [facility]. We would like to cover regular topics [...] Dictation was accomplished with the use of GridCure voice recognition software, prone to medical misidentifications [...] group exercises. Consider hiring a personal banking representative. Regular exercise is castro to sustainable health [...] counseling and psychiatry and Dr Chambers at [facility]. We would like to cover regular topics [...] Dictation was accomplished with the use of GridCure voice recognition software, prone to medical misidentifications [...] Consider using apps like 7 minute excercise, myFOXTOWNpal, lose it, stick as needed for self-monitoring and weight management. Consider group exercises. Consider hiring a personal banking representative. Regular exercise is castro to sustainable health [...] counseling and psychiatry and Dr Chambers at [facility]. We would like to cover regular topics [...] Dictation was accomplished with the use of GridCure voice recognition software, prone to medical misidentifications [...] arise. 04/17/2025 Moderate obesity (ICD-10 - E66.9) Dbe is a 49-year-old female with past medical [...] group exercises. Consider hiring a personal banking representative. Regular exercise is acstro to sustainable health and prevents as a [...] counseling and psychiatry and Dr Chambers at [facility]. We would like to cover regular topics [...] Dictation was accomplished with the use of GridCure voice recognition software, prone to medical misidentifications [...] Consider using apps like 7 minute excercise, myFOXTOWNpal, lose it, stick as needed for self-monitoring and weight management. Consider group exercises. Consider hiring a personal banking representative. Regular exercise is castro to sustainable health [...] counseling and psychiatry and Dr Chambers at [facility]. We would like to cover regular topics [...] Dictation was accomplished with the use of GridCure voice recognition software, prone to medical misidentifications [...] Consider using apps like 7 minute excercise, myGEO'Suppnesspal, lose it, stick as needed for self-monitoring and weight management. Consider group exercises. Consider hiring a personal banking representative. Regular exercise is castro to sustainable health [...] counseling and psychiatry and Dr Chambers at [facility]. We would like to cover regular topics [...] Dictation was accomplished with the use of GridCure voice recognition software, prone to medical misidentifications [...] weekly injections to help with GEORGES. Cortisol fitness manager started today. Referral to sleep medicine [...] Consider using apps like 7 minute excercise, Syrmopal, lose it, stick as needed for self-monitoring and weight management. Consider group exercises. Consider hiring a personal banking representative. Regular exercise is castro to sustainable health [...] counseling and psychiatry and Dr Chambers at [facility]. We would like to cover regular topics [...] Dictation was accomplished with the use of GridCure voice recognition software, prone to medical misidentifications [...] weekly injections to help with GEORGES. Cortisol fitness manager started today. Referral to sleep medicine [...] group exercises. Consider hiring a personal banking representative. Regular exercise is castro to sustainable health [...] counseling and psychiatry and Dr Chambers at [facility]. We would like to cover regular topics [...] Dictation was accomplished with the use of GridCure voice recognition software, prone to medical misidentifications [...] Consider using apps like 7 minute excercise, Syrmopal, lose it, stick as needed for self-monitoring and weight management. Consider group exercises. Consider hiring a personal banking representative. Regular exercise is castro to sustainable health [...] counseling and psychiatry and Dr Chambers at [facility]. We would like to cover regular topics [...] Dictation was accomplished with the use of GridCure voice recognition software, prone to medical misidentifications [...] level. Consider using apps like 7 minute exceAdMobilizeise, myFOXTOWNpal, lose it, stick as needed for self-monitoring and weight management. Consider group exercises. Consider hiring a personal banking representative. Regular exercise is castro to sustainable health [...] counseling and psychiatry and Dr Chambers at [facility]. We would like to cover regular topics [...] Dictation was accomplished with the use of GridCure voice recognition software, prone to medical misidentifications [...] group exercises. Consider hiring a personal banking representative. Regular exercise is castro to sustainable health [...] counseling and psychiatry and Dr Chambers at [facility]. We would like to cover regular topics [...] Dictation was accomplished with the use of GridCure voice recognition software, prone to medical misidentifications [...] Consider using apps like 7 minute excercise, myFOXTOWNpal, lose it, stick as needed for self-monitoring and weight management. Consider group exercises. Consider hiring a personal banking representative. Regular exercise is castro to sustainable health [...] counseling and psychiatry and Dr Chambers at [facility]. We would like to cover regular topics [...] Dictation was accomplished with the use of GridCure voice recognition software, prone to medical misidentifications [...] Consider using apps like 7 minute excercise, Syrmopal, lose it, stick as needed for self-monitoring and weight management. Consider group exercises. Consider hiring a personal banking representative. Regular exercise is castro to sustainable health [...] counseling and psychiatry and Dr Chambers at [facility]. We would like to cover regular topics [...] Dictation was accomplished with the use of GridCure voice recognition software, prone to medical misidentifications [...] group exercises. Consider hiring a personal banking representative. Regular exercise is castro to sustainable health [...] counseling and psychiatry and Dr Chambers at [facility]. We would like to cover regular topics [...] Dictation was accomplished with the use of GridCure voice recognition software, prone to medical misidentifications [...] Consider using apps like 7 minute excercise, Syrmopal, lose it, stick as needed for self-monitoring and weight management. Consider group exercises. Consider hiring a personal banking representative. Regular exercise is castro to sustainable health [...] counseling and psychiatry and Dr Chambers at [facility]. We would like to cover regular topics [...] Dictation was accomplished with the use of GridCure voice recognition software, prone to medical misidentifications [...] group exercises. Consider hiring a personal banking representative. Regular exercise is castro to sustainable health [...] counseling and psychiatry and Dr Chambers at [facility]. We would like to cover regular topics [...] Dictation was accomplished with the use of GridCure voice recognition software, prone to medical misidentifications [...] weekly injections to help with GEORGES. Cortisol fitness manager started today. Referral to sleep medicine [...] group exercises. Consider hiring a personal banking representative. Regular exercise is castro to sustainable health [...] counseling and psychiatry and Dr Chambers at [facility]. We would like to cover regular topics [...] Dictation was accomplished with the use of GridCure voice recognition software, prone to medical misidentifications [...] Provider Name:Jacquie cage, 07/17/2025 01:15:00 PM, [address] [facility], [address], [place], [address], Insurance Providers Payer Name Payer Address Payer Phone Subscriber Number Group Number Insured Name Patient Relationship to Insured Coverage Start Date Coverage End Date [facility] [address] [place] [address] [phone] [id number] DEB BEARD Self - patient is the insured 4 Medical (General) History Medical History History ICD Code 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
== END 2025-07-11 12:07 | disposition home or self-care (01) ==
LOC: HO.HMCH 16:20
PROVIDERS: PCP Physician Assistant; Visit Provider Internal Medicine
DX: R14.0 Abdominal distension (gaseous) (principal); R13.10 Dysphagia, unspecified; F32.9 Major depressive disorder, single episode, unspecified; Z32.02 Encounter for pregnancy test, result negative

== ENCOUNTER → 2025-07-05 16:19 | Outpatient (BNVA) | payer OTHER, SELFPAY | PROVIDERS: PCP Physician Assistant; Visit Provider Internal Medicine | DX: R14.0 Abdominal distension (gaseous) (principal); R13.10 Dysphagia, unspecified; F33.1 Major depressive disorder, recurrent, moderate; Z32.02 Encounter for pregnancy test, result negative | CPT/HCPCS: 81025 ==

== ENCOUNTER 2025-08-29 18:43 | Emergency (ER) | payer OTHER, SELFPAY ==
[2025-08-29 19:30] VITALS: BP 123/65; PULSE 53; RESP 16; TEMP 36.7; O2SAT 100; BMI 26.9
--- NOTE | 2025-08-29 19:31 | ED_ITS ---
HPI - Nausea/Vomiting/Diarrhea General Chief complaint: Nausea/Vomiting/Diarrhea Stated complaint: Nausea Vomiting Diarrhea Time Seen by Provider: 08/29/25 23:43 Source: patient Mode of arrival: ambulatory Limitations: no limitations History of Present Illness ED Provider: Nima VAUGHN HPI Narrative: The patient is a 50-year-old with history of depression, chronic fatigue, PTSD, GERD, hyperlipidemia, fibromyalgia, Juan-Danlos syndrome, GEORGES, and a previous pulmonary embolism not currently on anticoagulation, presenting to the ED reporting severe nonbloody nausea and vomiting which began this morning. Patient reports severe nausea and vomiting with any attempted p.o. solid or fluid intake. The patient reports she was feeling well yesterday, reports last night she ate muscles which she bought from a reputable grocery store and cooked well, reports she ate the meal alone, and woke this morning with the nausea and vomiting symptoms. The patient reports after multiple episodes of vomiting she began experiencing left upper quadrant abdominal pain. The patient also reports some diarrhea, denies associated hematochezia, melena, or hematemesis. The patient denies any recent sick contacts or trauma. The patient denies associated fever/chills, chest pain, shortness of breath, or urinary symptoms. Related Data Previous Rx's ?Medication ?Instructions ?Recorded polyethylene glycol 3350 17 17 g PO DAILY #119 grams 0 07/05/25 gram/dose oral powder (Miralax) psyllium husk 3.4 gram oral powder 3.4 g PO TID #54 ea 07/05/25 packet (Daily Fiber (psyllium-aspartame)) simethicone 80 mg chewable tablet 80 mg PO BID-QID PRN abdominal 07/05/25 (Gas Relief (simethicone)) distention #30 tabs minoxidil 2.5 mg tablet 2.5 mg PO DAILY 30 days #30 tabs 08/10/25 metoclopramide HCl 5 mg tablet 5 mg PO DAILY #7 tabs 1 10/30/24 (Reglan) Allergies Allergy/AdvReac Type Severity Reaction Status Date / Time erythromycin base Allergy Severe PANCREATITI Verified 08/29/25 19:32 (ERYTHROMYCIN BASE) S Penicillins (PCN) Allergy Severe HIVES Verified 08/29/25 19:32 Review of Systems 2 Review of Systems: Yes all other systems are reviewed and are negative PMFSH Past Medical History Medical History Feeling suicidal Depression Osteoarthritis Depression GERD (gastroesophageal reflux disease) Atypical chest pain GEORGES (obstructive sleep apnea) On anticoagulant therapy Menorrhagia Pulmonary embolism Syncope and collapse Subchondral sclerosis EDS (Juan-Danlos syndrome) Surgical History Hx of colonoscopy Hx of hand surgery History of endometrial ablation H/O bilateral breast reduction surgery Hx of section History of back surgery H/O knee surgery H/O shoulder surgery (~02/2019) Family History Family History Paternal Aunt Breast cancer Father Diabetes High cholesterol HTN (hypertension) Maternal Uncle Stroke Maternal Grandfather Emphysema lung Lung cancer Maternal Grandmother Asthma Son Asthma Social History Social History Household Members: Children Housing: Apartment Do you presently have visiting nurse or other home services: No Alcohol intake: never Comment: stated was minimal Patient Tobacco Use Status: Never used Tobacco Tobacco use type: Cigarette Smoked in Last 30 Days: No e-Cigarette/Vaping Use: Never Used Second Hand Smoke Exposure: No Substance Use Type: Marijuana Substance Use Frequency: Daily Last Used Substance: Days (ago) Advance Directives: Yes Advance Directives on File: Yes Advance Directives Date on File: 08/31/20 Patient : No service: No Current occupational status: employed 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 Vital signs as documented. HEAD: Atraumatic, normocephalic. EYES: EOMs grossly intact, pupils equal, conjunctiva clear, no exudate. ENT: Nares patent, no discharge. Airway patent, no audible stridor, visible mucosa is pink and moist without noted lesions. NECK: Trachea is midline, no obvious masses or gross abnormalities. CHEST: Symmetric movement, normal appearance. LUNGS: LS present and CTAB, no w/r/r. Non-labored work of breathing. CARDIAC: Regular Rhythm, S1/S2 appreciated, no murmurs, rubs or gallops. ABDOMEN: Abdomen soft and non-tender x4 quadrants, no palpable masses or organomegaly. : Deferred. EXTREMITIES: Normal tone, moves all extremities spontaneously without reported pain. No obvious acute injury or deformity noted. NEURO: Alert and oriented x3, CN II-XII appear grossly intact. Cerebellar Functioning grossly intact. No obvious sensory or motor deficits. Speech clear and appropriate. PSYCH: normal affect, appropriate eye contact, fluid speech, with appropriate response to questioning. No reported suicidality or homicidality. SKIN: Warm, dry, color appropriate, normal turgor. No rashes noted. Course Course Course Narrative: This is an RME: Additional HPI, ROS, PE not included below will be deferred to primary provider. RME assessment and note performed by: Cristy Wadsworth PA-C This is a 72-wvor-mjd-female, with a hx of fibromyalgia, MDD, EDS, who presents to the ER with a complaint of diffuse abdominal pain, nausea, vomiting and diarrhea. Had mussels last night. Unable to tolerate PO. No fevers or chills. Plan: Labs, UA Medications Administered Discontinued Medications Generic Name Dose Route Start Last Admin Trade Name Cheryl PRN Reason Stop Dose Admin Diphenhydramine HCl 25 mg 08/30/25 01:41 08/30/25 01:47 Diphenhydramine Hcl 50 Mg/Ml Vial IVPUSH 08/30/25 01:42 25 mg ONCE ONE Administration Sodium Chloride 1,000 mls @ 999 mls/hr 08/29/25 23:15 08/30/25 01:05 Ns IV 08/30/25 00:15 Infused .Q1H1M VERONICA Infusion Sodium Chloride 1,000 mls @ 999 mls/hr 08/30/25 01:00 08/30/25 02:15 Ns IV 08/30/25 02:00 Infused .Q1H1M VERONICA Infusion Metoclopramide HCl 10 mg 08/30/25 01:41 08/30/25 01:47 Metoclopramide Hcl 10 Mg/2 Ml Vial IVPUSH 08/30/25 01:42 10 mg ONCE ONE Administration Ondansetron HCl 4 mg 08/30/25 00:55 08/30/25 01:08 Ondansetron Hcl 4 Mg/2 Ml Vial IVPUSH 08/30/25 00:56 4 mg ONCE ONE Administration Medical Decision Making Medical Decision Making MDM Narrative: 1:03 AM 08/30/2025 (Brooklynn VAUGHN): The patient is a 50-year-old with history of depression, chronic fatigue, PTSD, GERD, hyperlipidemia, fibromyalgia, Juan- Danlos syndrome, GEORGES, and a previous pulmonary embolism not currently on anticoagulation, presenting to the ED reporting severe nonbloody nausea and vomiting which began this morning. Patient reports severe nausea and vomiting with any attempted p.o. solid or fluid intake. The patient reports she was feeling well yesterday, reports last night she ate muscles which she bought from a reputable grocery store and cooked well, reports she ate the meal alone, and woke this morning with the nausea and vomiting symptoms. The patient reports after multiple episodes of vomiting she began experiencing left upper quadrant abdominal pain. The patient also reports some diarrhea, denies associated hematochezia, melena, or hematemesis. The patient denies any recent sick contacts or trauma. The patient denies associated fever/chills, chest pain, shortness of breath, or urinary symptoms. On exam the patient appears drawn out, but abdomen is nontender. The patient's laboratory evaluation shows no leukocytosis however there is significant neutrophilia, no electrolyte abnormality or BISI, LFTs are unremarkable, lipase is normal. The patient's urinalysis is concentrated but without evidence of infection. The patient reports she is currently menstruating as expected. Quantitative hCG is negative. The patient's symptoms may be related to gastroenteritis versus food poisoning. Patient will be treated with IV fluid hydration, antiemetics, and reassess. At this time seeing as patient has no abdominal tenderness there was no indication for CT imaging. If symptoms do not improve following interventions, we will then consider CT imaging. 5:34 AM 08/30/2025 (Brooklynn VAUGHN): The patient initially had no significant relief from Zofran, patient was treated with Reglan, as well as Benadryl to prevent dystonic reaction. The patient reports since those interventions her symptoms have dramatically improved, patient is currently requesting p.o. challenge, p.o. challenge will be performed and if positive patient will be discharged to follow up with PCP. Admission/Observation Consideration of admission/observation: Escalation of care including admission/observation considered Lab Data MDM Lab Attestation statement: I reviewed the patient's lab results. 08/29/25 19:52 08/29/25 19:52 Labs: Lab Results 08/29/25 08/30/25 Range/Units 19:52 01:14 WBC 9.9 (4.8-10.8) X10*3/uL RBC 4.29 (4.20-5.50) X10*6/uL Hgb 12.4 (12.0-16.0) g/dl Hct 38.0 (37.0-47.0) % MCV 88.6 (80.0-98.0) fL MCH 28.9 (27.0-33.0) pg MCHC 32.6 (31.0-35.0) g/dl RDW 13.2 (11.0-16.0) % Plt Count 325 (160-400) X10*3/uL MPV 9.2 L (9.4-12.3) fL Immature Gran % (Auto) 0.2 (0.0-0.4) % Neut % (Auto) 89.8 H (45-73) % Lymph % (Auto) 8.4 L (20-40) % [place] % (Auto) 1.6 L (2-11) % Eos % (Auto) 0.0 (0-4) % Baso % (Auto) 0.0 (0-2) % Lymph # (Auto) 0.8 L (1.2-4.9) X10*3/uL [place] # (Auto) 0.2 (0.1-1.2) X10*3/uL Eos # (Auto) 0.0 (0.0-0.4) X10*3/uL Baso # (Auto) 0.0 (0.0-0.2) X10*3/uL Abs Immat Gran (auto) 0.02 (0.00-0.03) X10*3/uL Absolute Neuts (auto) 8.9 H (2.0-8.3) x10*3/uL Absolute Nucleated RBC 0.000 (0.0-0.012) X10*3/uL Nucleated RBC % (auto) 0.0 (0.0-0.2) /100WBC Sodium 141 (135-145) mmol/L Potassium 3.6 (3.3-5.1) mmol/L Chloride 107 (96-108) mmol/L Carbon Dioxide 26 (22-29) mmol/L Anion Gap 12 (12-20) BUN 15 (9-16) mg/dL Creatinine 0.70 (0.5-1.4) mg/dL Estim Creat Clear Calc 91.5 Estimated GFR > 60 Random Glucose 122 H (60-115) mg/dL Calcium 9.3 (8.4-10.2) mg/dL Magnesium 1.6 (1.6-2.6) mg/dL Total Bilirubin 0.4 (0.0-1.0) mg/dL Direct Bilirubin 0.1 (0.0-0.5) mg/dL AST 20 (5-31) U/L ALT 12 (0-31) U/L Alkaline Phosphatase 66 (39-117) U/L Total Protein 7.7 (6.5-8.0) g/dL Albumin 4.7 (3.5-5.0) g/dL Lipase 38 (8-78) U/L Beta HCG, Quant < 2 mIU/mL Urine Color Dark Yellow Urine Appearance Clear Urine pH 6.5 (5.0-9.0) Ur Specific [place] >= 1.030 H (1.005-1.025) Urine Protein 30 (1+) H (Neg-Trace) mg/dL Urine Glucose (UA) Negative (Negative) mg/dL Urine Ketones 80 (Negative) mg/dL Urine Blood Small (1+) H (Negative) Urine Nitrite Negative (Negative) Ur Leukocyte Esterase Negative (Negative) Urine RBC 11-20 H (0-2) /HPF Urine WBC 0-5 (0-5) /HPF Ur Squamous Epith Cells 3-5 (0-2) /HPF Urine Bacteria 1+ (None Seen) Hyaline Casts 0-2 (0-2) /LPF Discharge Plan Discharge Clinical Impression: Food poisoning Patient Disposition: Home, Self-Care Instructions: Food Poisoning (ED), Foodborne Illness (DC) Additional Instructions: Thank you for choosing [facility]'s Emergency Department for your care today. Thankfully your laboratory evaluation, urinalysis, and exam today are reassuring. At this time there is no indication for admission to the hospital or continued ED observation, and it is safe to discharge you home. Your symptoms improved following IV fluid hydration and antinausea medication. Your symptoms are most likely secondary to food poisoning versus a viral gastroenteritis. You should take alternating (staggered) doses of ibuprofen 600mg and Tylenol 1000mg every 4 hours as needed for any additional pain. Please take Reglan as prescribed for additional nausea. Please stay well hydrated and get plenty of rest. Please follow up with your primary care physician for re-evaluation, additional management of your symptoms, and continued preventative care. If you do not have a primary care physician, please call the [facility] at [phone] to establish a new primary care physician. While waiting to establish your new primary care physician, you can call our Walk-in Care Clinic at [phone] for non-emergency needs. Please return to the emergency department if you develop a severe or sudden change in your symptoms, a fever over 100.4 that does not improve with Tylenol or Ibuprofen, recurrent vomiting, or any other new or worsening symptoms or concerns. Prescriptions: New metoclopramide HCl [Reglan] 5 mg tablet 5 mg PO DAILY Qty: 7 0RF No Action minoxidil 2.5 mg tablet 2.5 mg PO DAILY 30 Days Qty: 30 2RF polyethylene glycol 3350 [Miralax] 17 gram/dose powder 17 g PO DAILY Qty: 119 0RF simethicone [Gas Relief (simethicone)] 80 mg tablet,chewable 80 mg PO BID-QID PRN (Reason: abdominal distention) Qty: 30 3RF Daily Fiber (psyllium-aspart) 3.4 gram powder in packet 3.4 g PO TID Qty: 54 0RF Referrals: Betito Rico PA-C [Primary Care Provider, Internal Medicine] Clinical Impression: Food poisoning Print Language: [place] Citizen
[2025-08-29 19:56] LABS: MANUAL DIFF FLAG NO
[2025-08-29 19:57] LABS: Hematocrit 38.0 % (37.0-47.0); Hemoglobin 12.4 g/dl (12.0-16.0); Imm Gran Abs Auto 0.02 X10*3/uL (0.00-0.03); Imm Gran Pct Auto 0.2 % (0.0-0.4); Lymphocytes Absolute Auto 0.8 X10*3/uL (1.2-4.9); Mean Corpuscular HGB Conc 32.6 g/dl (31.0-35.0); Mean Corpuscular Hemoglobin 28.9 pg (27.0-33.0); Mean Corpuscular Volume 88.6 fL (80.0-98.0); NRBC Abs Auto 0.000 X10*3/uL (0.0-0.012); NRBC Pct Auto 0.0 /100WBC (0.0-0.2); Platelet Count 325 X10*3/uL (160-400); Red Blood Count 4.29 X10*6/uL (4.20-5.50); White Blood Count 9.9 X10*3/uL (4.8-10.8)
[2025-08-29 20:10] LABS: Alanine Aminotransferase 12 U/L (0-31); Albumin Level 4.7 g/dL (3.5-5.0); Alkaline Phosphatase 66 U/L (39-117); Anion Gap 12 (12-20); Aspartate Amino Transferase 20 U/L (5-31); Blood Urea Nitrogen 15 mg/dL (9-16); Calcium 9.3 mg/dL (8.4-10.2); Carbon Dioxide 26 mmol/L (22-29); Chloride 107 mmol/L (96-108); Creatinine Clr Calc Pharmacy 91.5; Estimated Glomerular Filt Rate > 60; Lipase 38 U/L (8-78); Magnesium 1.6 mg/dL (1.6-2.6); Potassium 3.6 mmol/L (3.3-5.1); Sodium 141 mmol/L (135-145); Total Protein 7.7 g/dL (6.5-8.0)
[2025-08-29 22:36] VITALS: BP 114/68; PULSE 60; RESP 16; TEMP 36.9; O2SAT 99
--- NOTE | 2025-08-29 23:07 | PC.NURSE ---
Pt here w/ c/o n&v since this am. Pt took po zofran at home without relief. Pt endorses daily cannibas use but denies use today.
--- NOTE | 2025-08-30 00:35 | PC.NURSE ---
This RN assumed pt care @ 2300. Pt sitting up in bed, a&ox4, no signs of distress. Pt reporting nausea, provider notified. Plan of care ongoing.
--- NOTE | 2025-08-30 01:19 | PC.NURSE ---
Pt medicated per dec UA sent Plan of care ongoing.
[2025-08-30 01:23] LABS: Appearance Urine Clear; Glucose Urine UA Negative (Negative); PH 6.5 (5.0-9.0); Specific Gravity - Urine >= 1.030 (1.005-1.025); UMIC TRIGGER UACC YES
--- NOTE | 2025-08-30 01:51 | PC.NURSE ---
Pt reporting nausea and meds given not effective Provider notified and aware New orders received Pt medicated per [facility] Plan of care ongoing.
[2025-08-30 05:05] VITALS: BP 94/53; PULSE 58; RESP 14; O2SAT 97
[2025-08-30 06:47] VITALS: BP 94/53; PULSE 58; RESP 14; TEMP 37.1; O2SAT 97
--- OUTSIDE RECORDS SUMMARY | 2025-08-30 14:13 | XMS_ITS | Encounter Summary ---
Author Organization [facility] Address [address] [place] [address] Care Team Providers Care Signal Constructor Name Role Phone Rosalva Stephen MD Primary Care Provider [phone] Encounter Details Date Type Department Care Team Description 04/19/2021 Senior Java J2Ee Developer Report Medical Records [address] [place] [id number] Harjinder Stovall Social History Tobacco Use Types Packs/Day Years Used Date Smoking Tobacco: Never Smokeless Tobacco: Never Alcohol Use Standard Drinks/Week Comments Yes 0 (1 standard drink = 0.6 oz pure alcohol) occasionally 1-2 times a week beer or wine Sex Assigned at Date Recorded Female 08/31/2019 10:02 AM EST Job Start Date Occupation Industry Not on file Not on file Not on file COVID-19 Exposure Response Date Recorded In the last month, have you been in contact with someone who was confirmed or suspected to have Coronavirus / COVID-19? No / Unsure 03/22/2021 1:23 PM EDT documented as of this encounter Plan of Treatment Not on file documented as of this encounter Visit Diagnoses Not on filedocumented in this encounter Care Teams Signal Constructor Relationship Specialty Start Date End Date Rosalva Stephen MD [address] [place] [address] [id number] PCP - General Internal Medicine 04/01/21 documented as of this encounter
--- OUTSIDE RECORDS SUMMARY | 2025-08-30 14:13 | XMS_ITS | Encounter Summary ---
Author Organization [facility] Address [address] [place] [address] Care Team Providers Care Agricultural Service Technician Name Role Phone Frances Sung DO Primary Care Pro vider Unavailable Rosalva Stephen MD Primary Care Provider [phone] Frances Sung DO Primary Care Pro vider Unavailable Rosalva Stephen MD Primary Care Provider [phone] Encounter Details Date Type Department Care Team Description 07/17/2020 Refill Physiatry - [address] [address] Na Reardon MD [address] [place] [address] [place], [place] [id number] Social History Tobacco Use Types Packs/Day Years [...] have Coronavirus / COVID-19? No / Unsure 07/18/2020 11:55 AM EDT documented as of this encounter Miscellaneous Notes * Telephone Encounter - Elizabeth Crowe M.A. - 07/18/2020 9:46 AM EDT Rx placed in Physiatry ppu in specialties. * Telephone Encounter - Na Reardon MD - 07/18/2020 9:30 AM EDT MassPAT report reviewed today for Deb Malcolm * Telephone Encounter - Alyssa Lyon L.P.N. - 07/17/2020 3:39 PM EDT Contracted Last refill 06/22/20 Last visit 07/04/20 Next visit 08/03/20 Last masspat 05/01/[address] Avila to review Lab Results Component Value Date URBENZO NONE DETECTED 07/06/2019 UROPIATES POSITIVE 07/06/2019 URBARBITUATE NONE DETECTED 07/06/2019 PAINAMPHETAM POSITIVE 07/06/2019 PAINCOCAINE NONE DETECTED 07/06/2019 PAINCANNABIN POSITIVE 07/06/2019 documented in this encounter Plan of Treatment Not on file documented as of this encounter Visit Diagnoses Diagnosis Chronic left shoulder pain Pain in joint, shoulder region History of cervical spinal surgery Personal history of surgery to other organs Chronic pain of right knee documented in this encounter Care Teams Agricultural Service Technician Relationship Specialty Start Date End Date Frances Sung DO PCP - General Internal Medicine 08/05/19 03/05/21 Rosalva Stephen MD [address] [place] [id number] PCP - General Internal Medicine 03/06/21 03/11/21 Frances Sung DO PCP - General Internal Medicine 03/12/21 03/31/21 Rosalva Stephen MD [address] [place] [id number] PCP - General Internal Medicine 04/01/21 documented as of this encounter
--- OUTSIDE RECORDS SUMMARY | 2025-08-30 14:13 | XMS_ITS | Encounter Summary ---
Author Organization [facility] Address [address] [place] [address] Care Team Providers Care Senior Statistician Name Role Phone [place] Colasacco, Frances DO Primary Care Pro vider Unavailable Doug Cosby MD Primary Care Provider Unavail able [place] Colasacco, Frances DO Primary Care Pro vider Unavailable Milton Hummel Primary Care Provider Unav ailable Rj Lino MD Primary Care Provider Unava ilable Milton Hummel Primary Care Provider Unav ailable [place] Colasacco, Frances DO Primary Care Pro vider Unavailable Rosalva Stephen MD Primary Care Provider [phone] [place] Colasacco, Frances DO Primary Care Pro vider Unavailable Rosalva Stephen MD Primary Care Provider [phone] Encounter Details Date Type Department Care Team Description 04/05/2018 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 Host Report Medical Records [address] [place] [id number] Maria De Jesus Domingo MD Social History Tobacco Use Types Packs/Day Years [...] on file documented as of this encounter Plan of Treatment Not on file documented as of this encounter Visit Diagnoses Not on filedocumented in this encounter Care Teams Senior Statistician Relationship Specialty Start Date End Date [place] Colasacco, Frances, DO PCP - General Internal Medicine 02/12/16 04/28/18 Doug Cosby MD PCP - General Internal Medicine 04/29/18 07/11/18 Frances Sung DO PCP - General Internal Medicine 07/12/18 02/24/19 Milton Hummel PCP - General Internal Medicine 02/25/19 06/26/19 Rj Lino MD PCP - General Internal Medicine 06/27/19 07/05/19 Milton Hummel PCP - General Internal Medicine 07/06/19 08/04/19 Frances Sung, PCP - General Internal Medicine 08/05/19 03/05/21 Rosalva Stephen MD [address] [place] [address] [phone] PCP - General Internal Medicine 03/06/21 03/11/21 Frances Sung, PCP - General Internal Medicine 03/12/21 03/31/21 Rosalva Stephen MD [address] [place] [address] [phone] PCP - General Internal Medicine 04/01/21 documented as of this encounter
--- OUTSIDE RECORDS SUMMARY | 2025-08-30 14:13 | XMS_ITS | Encounter Summary ---
Author Organization [facility] Address [address] [place] [address] Care Team Providers Care Chainman Name Role Phone Frances Sung DO Primary Care Pro vider Unavailable Rosalva Stephen MD Primary Care Provider Reason for Referral * (Priority) - Authorized/Booked Specialty Diagnoses / Procedures Referred By Hector biggs Referred To Contact ORTHOPEDICS / Orthopedic Procedures REFERRAL TO ORTHOPEDICS (OUT OF NETWORK) Frances Sung DO [address] [place] [address] External Orthopedics Referral ID Status Reason Start Date Expiration Date V isits Requested Visits Authorized [id number] Authorized/B ooked 03/28/2021 1 1 Encounter Details Date Type Department Care Team Description 03/28/2021 Orders Only Adult Medicine [address] [address] Frances Sung DO Social History Tobacco Use Types Packs/Day Years [...] on filedocumented in this encounter Care Teams Chainman Relationship Specialty Start Date End Date Frances Sung DO PCP - General Internal Medicine 03/12/21 03/31/21 Rosalva Stephen MD [address] [place] [address] [phone] PCP - General Internal Medicine 04/01/21 documented as of this encounter
--- OUTSIDE RECORDS SUMMARY | 2025-08-30 14:13 | XMS_ITS | Encounter Summary ---
Author Organization [facility] Address [address] [place] [address] Care Team Providers Care Computerized Mill Mill Recorder Name Role Phone Rosalva Stephen MD Primary Care Provider [phone] Encounter Details Date Type Department Care Team Description 04/26/2021 [facility] Medical Records [address] [place] [id number] Abstract, Provider Social History Tobacco Use Types Packs/Day Years Used Date Smoking Tobacco: Never Smokeless Tobacco: Never Alcohol Use Standard Drinks/Week Comments Yes 0 (1 standard drink = 0.6 oz pur e alcohol) holidays only Education Answer Date Recorded What is the highest level of school you have completed or the highest degree you have received? Bachelor's degree (e.g., BA, AB, BS) 04/26/2021 Sex Assigned at Date Recorded Female 08/31/2019 10:02 AM EST Job Start Date Occupation Industry Not on file Not on file Not on file COVID-19 Exposure Response Date Recorded In the last month, have you been in contact with someone who was confirmed or suspected to have Coronavirus / COVID-19? No / Unsure 04/26/2021 1:31 PM EDT documented as of this encounter Plan of Treatment Not on file documented as of this encounter Visit Diagnoses Not on filedocumented in this encounter Care Teams Computerized Mill Mill Recorder Relationship Specialty Start Date End Date Rosalva Stephen MD [address] [place] [address] [phone] PCP - General Internal Medicine 04/01/21 documented as of this encounter
--- OUTSIDE RECORDS SUMMARY | 2025-08-30 14:13 | XMS_ITS | Encounter Summary ---
Author Organization [facility] Address [address] [place] [address] Care Team Providers Care Ceramics Test Engineer Name Role Phone Milton Hummel Primary Care Provider Unav ailable Rj Lino MD Primary Care Provider Unava ilable Milton Hummel Primary Care Provider Unav ailable [place] Colasacco, Frances DO Primary Care Pro vider Unavailable Rosalva Stephen MD Primary Care Provider [phone] [place] Colasacco, Frances DO Primary Care Pro vider Unavailable Rosalva Stephen MD Primary Care Provider Encounter Details Date Type Department Care Team Description 03/22/2019 Refill OBGYN - [address] [phone] Meghann Lewis, [address] [id number] Social History Tobacco Use Types Packs/Day Years [...] on file documented as of this encounter Miscellaneous Notes * Telephone Encounter - Gaby Key - 04/01/2019 12:56 PM EDT Please review and close. Thank you. * Telephone Encounter - Thalia Stapleton C.M.A. - 03/23/2019 8:30 AM EDT Please consider refill to get pt to scheduled appointment. DL * Telephone Encounter - Jeannine Elizondo - 03/22/2019 4:40 PM EDT WHEN WAS THE PATIENTS LAST ANNUAL TERRITORY ACCOUNT REPRESENTATIVE EXAM? 03/11/18 Does patient have an upcoming appointment? 06/24/19 (THE MEDICATION REQUESTED IS ON THE MED LIST ABOVE) Did you check the Pharmacy information above?: YES Indicate how soon the patient needs the script: CONSTANCE Patient would like script to be: E-PRESCRIBED/FAXED TO PHARMACY Is the doctor here today?: YES Can the message wait until the doctor returns?: NO Has the patient been told that the prescription will not be filled until the end of the day? NO Payor: [facility] [place] / Plan: [facility] / Product Type: MEDICAID RISK * Telephone Encounter - Thalia Stapleton C.M.A. - 03/22/2019 3:51 PM EDT Pt needs ag. DL * Telephone Encounter - Thalia Stapleton C.M.A. - 03/22/2019 3:51 PM EDTFrom: Deb Malcolm To: Meghann Lewis CNM Sent: 03/22/2019 3:50 PM EDT Subject: Medication Renewal Request Original authorizing provider: AG Petersonsy Gold would like a refill of the following medications: norethindrone-ethinyl estradiol (NECON 0.5/35, 28,) 0.5-35 MG-MCG per tablet [Meghann Lewis CNM] Preferred pharmacy: [id number] - [place] - [address] [place] [address] DR. GARZA Comment: documented in this encounter Plan of Treatment Not on file documented as of this encounter Visit Diagnoses Not on filedocumented in this encounter Care Teams Ceramics Test Engineer Relationship Specialty Start Date End Date Milton Hummel PCP - General Internal Medicine 02/25/19 06/26/19 Rj Lino MD PCP - General Internal Medicine 06/27/19 07/05/19 Milton Hummel PCP - General Internal Medicine 07/06/19 08/04/19 Frances Sung DO PCP - General Internal Medicine 08/05/19 03/05/21 Rosalva Stephen MD [address] [place] [id number] PCP - General Internal Medicine 03/06/21 03/11/21 Frances Sung DO PCP - General Internal Medicine 03/12/21 03/31/21 Rosalva Stephen MD [address] [place] [address] PCP - General Internal Medicine 04/01/21 documented as of this encounter
--- OUTSIDE RECORDS SUMMARY | 2025-08-30 14:13 | XMS_ITS | Encounter Summary ---
Author Organization [facility] [place] [facility] Address [address] [place] [address] Care Team Providers Care Loan Clerk Name Role Phone Frances Sung DO Primary Care Pro vider Unavailable Rosalva Stephen MD Primary Care Provider [phone] Frances Sung DO Primary Care Pro vider Unavailable Rosalva Stephen MD Primary Care Provider [phone] Reason for Visit * Reason Comments E-prescribe Rx Request Encounter Details Date Type Department Care Team Description 07/08/2020 Refill Physiatry [address] [address] Na Reardon MD [address] [place] [address] [address] [facility] [place] [id number] E-prescribe Rx Request Social History Tobacco Use Types Packs/Day Years [...] have Coronavirus / COVID-19? No / Unsure 07/04/2020 2:50 PM EDT documented as of this encounter Miscellaneous Notes * Telephone Encounter - Alyssa Lyon L.P.N. - 07/09/2020 7:50 AM EDT Last refill 03/08/20 Last visit 07/04/20 Next visit 08/03/20 Request sent to Mr Bowser for refill documented in this encounter Plan of Treatment Not on file documented as of this encounter Visit Diagnoses Not on filedocumented in this encounter Care Teams Loan Clerk Relationship Specialty Start Date End Date Frances Sung DO PCP - General Internal Medicine 08/05/19 03/05/21 Rosalva Stephen MD [address] [place] [address] PCP - General Internal Medicine 03/06/21 03/11/21 Frances Sung DO PCP - General Internal Medicine 03/12/21 03/31/21 Rosalva Stephen MD [address] [place] [address] PCP - General Internal Medicine 04/01/21 documented as of this encounter
--- OUTSIDE RECORDS SUMMARY | 2025-08-30 14:13 | XMS_ITS | Encounter Summary ---
Author Organization [facility] Address [address] [place] [address] Care Team Providers Care Payment Specialist Name Role Phone [place] Colasacco, Frances DO [...] Unavailable Rosalva Stephen MD Primary Care Provider [phone] [place] Colasacco, Frances DO Primary Care Pro vider Unavailable Rosalva Stephen MD Primary Care Provider [phone] Encounter Details Date Type Department Care Team Description 03/29/2018 Refill Physiatry - [address] [phone] Na Reardon MD [address] [place] [address] Dr [place] [id number] Social History Tobacco Use Types Packs/Day Years [...] encounter Miscellaneous Notes * Telephone Encounter - Susan Nielson M.A. - 03/29/2018 8:[address] Avila's patient is requesting refill for flexeril Last ov 03/25/18 Last refill 03/17/18 Next ov 04/02/18 with Randall William PA-C for TPI * Telephone Encounter - Susan Nielson M.A. - 03/29/2018 8:29 AM EDTFrom: Deb Malcolm To: Na Reardon MD Sent: 03/29/2018 7:28 AM EDT Subject: Medication Renewal Request Original authorizing provider: MD Deb Gomes would like a refill of the following medications: cyclobenzaprine (FLEXERIL) 10 MG tablet [Na Reardon MD] Preferred pharmacy: [id number] [address] [facility] AT Comment: documented in this encounter Plan of Treatment Not on file documented as of this encounter Visit Diagnoses Diagnosis Fibromyalgia Mylagia and myositis, unspecified documented in this encounter Care Teams Payment Specialist Relationship Specialty Start Date End Date Frances Sung DO PCP - General Internal Medicine 02/12/16 [...] Internal Medicine 08/05/19 03/05/21 Rosalva Stephen MD [address] [place] [address] PCP - General Internal Medicine 03/06/21 03/11/21 Frances Sung DO PCP - General Internal Medicine 03/12/21 03/31/21 Rosalva Stephen MD [address] [place] [address] [id number] PCP - General Internal Medicine 04/01/21 documented as of this encounter
--- OUTSIDE RECORDS SUMMARY | 2025-08-30 14:13 | XMS_ITS | Encounter Summary ---
Author Organization [facility] Address [address] [place] [address] Care Team Providers Care Systems Protection Technician Name Role Phone Frances Sung DO Primary Care Pro vider Unavailable Rosalva Stephen MD Primary Care Provider [phone] Frances Sung DO Primary Care Pro vider Unavailable Rosalva Stephen MD Primary Care Provider [phone] Encounter Details Date Type Department Care Team Description 06/21/2020 Refill Physiatry - [address] [address] Mikey Bowser PA-C Social History Tobacco Use Types Packs/Day Years [...] have Coronavirus / COVID-19? No / Unsure 06/14/2020 12:54 PM EDT documented as of this encounter Miscellaneous Notes * Telephone Encounter - Elizabeth Crowe M.A. - 2020 8:27 AM EDT Rx placed in physiatry ppu in specialties * Telephone Encounter - Na Reardon MD - 2020 8:17 AM EDT MassPAT report reviewed today for Deb Malcolm * Telephone Encounter - Elizabeth Crowe M.A. - 2020 8:09 AM EDT Last ov 02/23/2020 Last refill 05/25/2020 Next ov 07/04/2020 Contracted MassPAT Lab Results Component Value Date URBENZO NONE [...] knee documented in this encounter Care Teams Systems Protection Technician Relationship Specialty Start Date End Date Frances Sung DO PCP - General Internal Medicine 08/05/19 03/05/21 Rosalva Stephen MD [address] [place] [address] PCP - General Internal Medicine 03/06/21 03/11/21 Frances Sung DO PCP - General Internal Medicine 03/12/21 03/31/21 Rosalva Stephen MD [address] [place] [id number] PCP - General Internal Medicine 04/01/21 documented as of this encounter
--- OUTSIDE RECORDS SUMMARY | 2025-08-30 14:13 | XMS_ITS | Encounter Summary ---
Author Organization [facility] Address [address] [place] [address] Care Team Providers Care Used Car Manager Name Role Phone Milton Hummel Primary Care Provider Unav ailRj Pyle MD Primary Care Provider Unava ilMilton Alicea Primary Care Provider Unav ailable [place] Colasacco, Frances DO Primary Care Pro vider Unavailable Rosalva Stephen MD Primary Care Provider [phone] [place] Colasacco, Frances DO Primary Care Pro vider Unavailable Rosalva Stephen MD Primary Care Provider [phone] Reason for Visit * Reason Onset Date Comments Provider Call Back 04/19/2019 Encounter Details Date Type Department Care Team Description 04/19/2019 Pt. Non Urgent Medical Question Physiatry - [address] [phone] Na Reardon MD [address] [place] [address] Dr [place] [place] [id number] Social History Tobacco Use Types Packs/Day Years [...] as of this encounter Progress Notes * Elizabeth Hendricks - 04/19/2019 3:58 PM EDTFrom: Deb Malcolm To: Na Reardon MD Sent: 04/19/2019 3:25 PM EDT Subject: Disability On the first denial letter it says that I don't have arthritis and can lift 25lbs frequently and 50lbs occasionally?! Yes I have arthritis and no I cannot lift 25lbs frequently. With this back pain and instability, no I cannot. My son is less than 50lbs and I can't carry him at all. The last time I tried, I couldn't move because I pulled a muscle. I'm having surgery on the . I need this information corrected. No hospital is going to hire me with all of these injuries and constant need for time off due to pain, surgery or illness. I'm not able to financially support my son. Please update any information so that they have the correct information please. Thank you. documented in this encounter Plan of Treatment Not on file documented as of this encounter Visit Diagnoses Not on filedocumented in this encounter Care Teams Used Car Manager Relationship Specialty Start Date End Date Milton Hummel PCP - General Internal Medicine 02/25/19 06/26/19 Rj Lino MD PCP - General Internal Medicine 06/27/19 07/05/19 Miltno Hummel PCP - General Internal Medicine 07/06/19 08/04/19 Frances Sung DO PCP - General Internal Medicine 08/05/19 03/05/21 Rosalva Stephen MD [address] [place] [id number] PCP - General Internal Medicine 03/06/21 03/11/21 Frances Sung DO PCP - General Internal Medicine 03/12/21 03/31/21 Rosalva Stephen MD [address] [place] [id number] PCP - General Internal Medicine 04/01/21 documented as of this encounter
--- OUTSIDE RECORDS SUMMARY | 2025-08-30 14:13 | XMS_ITS | Encounter Summary ---
Author Organization [facility] Address [address] [place] [address] Care Team Providers Care Inspector And Clipper Name Role Phone Rosalva Stephen MD Primary Care Provider [phone] Encounter Details Date Type Department Care Team Description 04/23/2021 Refill Rheumatology - [address] [phone] Loyd Langston PA Social History Tobacco Use Types Packs/Day Years [...] on filedocumented in this encounter Care Teams Inspector And Clipper Relationship Specialty Start Date End Date Rosalva Stephen MD [address] [place] [phone] PCP - General Internal Medicine 04/01/21 documented as of this encounter
--- OUTSIDE RECORDS SUMMARY | 2025-08-30 14:13 | XMS_ITS | Encounter Summary ---
Author Organization [facility] Address [address] [place] [address] Care Team Providers Care Career Development Counselor Name Role Phone Rosalva Stephen MD Primary Care Provider [phone] Encounter Details Date Type Department Care Team Description 04/01/2021 [facility] [address] [place] [address] Abstract, Provider Social History Tobacco Use Types [...] on filedocumented in this encounter Care Teams Career Development Counselor Relationship Specialty Start Date End Date Rosalva Stephen MD [address] [place] [address] [phone] PCP - General Internal Medicine 04/01/21 documented as of this encounter
--- OUTSIDE RECORDS SUMMARY | 2025-08-30 14:14 | XMS_ITS | Encounter Summary ---
Author Organization [facility] Address [address] [place] [address] Care Team Providers Care Framework Developer Name Role Phone Rosalva Stephen MD Primary Care Provider [phone] Reason for Visit * Reason Onset Date Comments Faxed Order 10/09/2022 [facility] 2-11/06/22 Encounter Details Date Type Department Care Team Description 10/09/2022 Telephone Adult Medicine [facility] [address] [place] [address] Rosalva Stephen MD [address] [place] [address] Faxed Order ([facility] 09/08/22-11/06/22) Social History Tobacco Use Types Packs/Day Years [...] Exposure Response Date Recorded In the last 10 days, have yo u been in contact with someone who was confirmed or suspected to have Coronavirus/COVID-19? No / Unsure 09/30/2022 4:13 PM EST documented as of this encounter Miscellaneous Notes * Telephone Encounter - Laura Miranda 10/09/2022 1:09 PM EST [facility] to [phone] . documented in this encounter Plan of Treatment Not on file documented as of this encounter Visit Diagnoses Not on filedocumented in this encounter Care Teams Framework Developer Relationship Specialty Start Date End Date Rosalva Stephen MD [address] [place] [phone] PCP - General Internal Medicine 04/01/21 documented as of this encounter
--- OUTSIDE RECORDS SUMMARY | 2025-08-30 14:14 | XMS_ITS | Encounter Summary ---
Author Organization [facility] Address [address] [place] [address] Care Team Providers Care Rate Analyst Name Role Phone Rosalva Stephen MD Primary Care Provider [phone] Reason for Visit * Reason Onset Date Comments Faxed Order 09/24/2022 [facility] -09/07/2022 Encounter Details Date Type Department Care Team Description 09/24/2022 Telephone Adult Medicine [address] [address] Rosalva Stephen MD [address] [place] [address] [phone] Faxed Order ([facility] 07/10/2022-09/07/2022) Social History Tobacco Use Types Packs/Day Years [...] on filedocumented in this encounter Care Teams Rate Analyst Relationship Specialty Start Date End Date Rosalva Stephen MD [address] [place] [address] [phone] PCP - General Internal Medicine 04/01/21 documented as of this encounter
--- OUTSIDE RECORDS SUMMARY | 2025-08-30 14:14 | XMS_ITS | Encounter Summary ---
Author Organization [facility] Address [address] [place] [address] Care Team Providers Care Forging Engineer Name Role Phone Doug Cosby MD Primary Care Provider Unavail able [place]rak[place]ak Colasacco, Frances DO Primary Care Pro vider Unavailable Milton Hummel Primary Care Provider Unav ailable Rj Lino MD Primary Care Provider Unava ilable Milton Hummel Primary Care Provider Unav ailable [place] Colasacco, Frances DO Primary Care Pro vider Unavailable Rosalva Stephen MD Primary Care Provider [phone] [place] Colasacco, Frances DO Primary Care Pro vider Unavailable Rosalva Stephen MD Primary Care Provider [phone] Encounter Details Date Type Department Care Team Description 05/05/2018 Refill Physiatry - [address] [address] Mikey Bowser PA-C Social History Tobacco Use [...] encounter Miscellaneous Notes * Telephone Encounter - Vicki Burr M.A. - 05/06/2018 8:52 AM EDT Last visit 6/14/18 Next visit 06/25/18 Last refill 04/12/18 Last masspat 02/19/18 * Telephone Encounter - Vicki Burr M.A. - 05/06/2018 8:52 AM EDTFrom: Deb Malcolm To: Mikey Bowser PA-C Sent: 05/05/2018 9:03 PM EDT Subject: Medication Renewal Request Original authorizing provider: CLAUDE Hoffman would like a refill of the following medications: gabapentin (NEURONTIN) 300 MG capsule [Mikey Bowser PA-C] Preferred pharmacy: [id number] [place], [place] - [address] [facility] AT Comment: can we increase the Neurontin to 3xs av day, I'm still getting muscle spasms and this rain is causing a lot of pain Medication renewals requested in this message routed to other providers: sulindac (CLINORIL) 200 MG tablet [Sixto Olmedo DO] documented in this encounter Plan of Treatment Not on file documented as of this encounter Visit Diagnoses Not on filedocumented in this encounter Care Teams Forging Engineer Relationship Specialty Start Date End Date Doug Cosby MD PCP - General Internal Medicine 04/29/18 07/11/18 Frances Sung DO PCP - General Internal Medicine 07/12/18 02/24/19 Milton Hummel PCP - General Internal Medicine 02/25/19 06/26/19 Rj Lino MD PCP - General Internal Medicine 06/27/19 07/05/19 Milton Hummel PCP - General Internal Medicine 07/06/19 08/04/19 Frances Sung DO PCP - General Internal Medicine 08/05/19 03/05/21 Rosalva Stephen MD [address] [place] [id number] PCP - General Internal Medicine 03/06/21 03/11/21 Frances Sung DO PCP - General Internal Medicine 03/12/21 03/31/21 Rosalva Stephen MD [address] [place] [address] PCP - General Internal Medicine 04/01/21 documented as of this encounter
--- OUTSIDE RECORDS SUMMARY | 2025-08-30 14:14 | XMS_ITS | Encounter Summary ---
Author Organization [facility] Address [address] [place] [address] Care Team Providers Care Buildings And Grounds Superintendent Name Role Phone Krak[place]iak Colasacco, Frances DO [...] Unavailable Rosalva Stephen MD Primary Care Provider [phone] K[place]ak Colasacco, Frances DO Primary Care Pro vider Unavailable Rosalva Stephen MD Primary Care Provider [phone] Reason for Visit * Reason Comments E-prescribe Rx Request Encounter Details Date Type Department Care Team Description 04/14/2018 Refill Physiatry - [place] [address] [place] [address] Sixto Olmedo DO E-prescribe Rx Request Social History Tobacco Use [...] encounter Miscellaneous Notes * Telephone Encounter - Na Reardon MD - 04/21/2018 4:01 AM EDT Taking prednisone * Telephone Encounter - Susan Nielson M.A. - 04/15/2018 8:11 AM EDT Last ov 03/25/18 Last filled 03/29/18 Next ov 06/25/18 Patient was given a script for prednisone 04/13/18 Dr Olmedo and was informed not to take clinoril while taking prednisone. Okay to wait for Dr Avila documented in this encounter Plan of Treatment Not on file documented as of this encounter Visit Diagnoses Not on filedocumented in this encounter Care Teams Buildings And Grounds Superintendent Relationship Specialty Start Date End Date Frances Sung DO PCP - General Internal Medicine 02/12/16 04/28/18 Doug Cosby MD PCP - General Internal Medicine 04/29/18 07/11/18 Frances Sung DO PCP - General Internal Medicine 07/12/18 02/24/19 Milton Hummel PCP - General Internal Medicine 02/25/19 06/26/19 jR Lino MD PCP - General Internal Medicine 06/27/19 07/05/19 Milton Hummel PCP - General Internal Medicine 07/06/19 08/04/19 Frances Sung DO PCP - General Internal Medicine 08/05/19 03/05/21 Rosalva Stephen MD [address] [place] [phone] PCP - General Internal Medicine 03/06/21 03/11/21 Frances Sung DO PCP - General Internal Medicine 03/12/21 03/31/21 Rosalva Stephen MD [address] [place] [phone] PCP - General Internal Medicine 04/01/21 documented as of this encounter
--- OUTSIDE RECORDS SUMMARY | 2025-08-30 14:14 | XMS_ITS | Encounter Summary ---
Author Organization [facility] Address [address] [place] [address] Care Team Providers Care Irrigation Technician Name Role Phone Frances Sung DO Primary Care Pro vider Unavailable Rosalva Stephen MD Primary Care Provider [phone] Frances Sung DO Primary Care Pro vider Unavailable Rosalva Stephen MD Primary Care Provider [phone] Encounter Details Date Type Department Care Team Description 08/15/2020 Refill Physiatry - [address] [address] Na Reardon MD [address] [place] [address] [place], [place] [phone] Social History Tobacco Use Types Packs/Day Years [...] Telephone Encounter - Elizabeth Crowe M.A. - 08/16/2020 9:09 AM EST Rx placed in Physiatry ppu in specialties. * Telephone Encounter - Na Reardon MD - 08/16/2020 8:42 AM EST MassPAT report reviewed today for Deb Malcolm * Telephone Encounter - Alyssa Lyon L.P.NWild - 08/16/2020 7:23 AM EST Contracted Last refill 08/18/20 Last visit 08/15/20 Next visit not booked Last masspat 05/01/20 masspat printed and to [...] knee documented in this encounter Care Teams Irrigation Technician Relationship Specialty Start Date End Date Frances Sung DO PCP - General Internal Medicine 08/05/19 03/05/21 Rosalva Stephen MD [address] [place] [address] PCP - General Internal Medicine 03/06/21 03/11/21 Frances Sung DO PCP - General Internal Medicine 03/12/21 03/31/21 Rosalva Stephen MD [address] [place] [address] PCP - General Internal Medicine 04/01/21 documented as of this encounter
--- OUTSIDE RECORDS SUMMARY | 2025-08-30 14:14 | XMS_ITS | Encounter Summary ---
Author Organization [facility] Address [address] [place] [address] Care Team Providers Care Waste Paper Hammermill Operator Name Role Phone Rosalva Stephen MD Primary Care Provider [phone] Encounter Details Date Type Department Care Team Description 11/07/2022 Home Health Certification Medical Records [address] [place] [address] [facility] [address] [address] Social History Tobacco Use Types Packs/Day Years [...] on filedocumented in this encounter Care Teams Waste Paper Hammermill Operator Relationship Specialty Start Date End Date Rosalva Stephen MD [address] [place] [address] PCP - General Internal Medicine 04/01/21 documented as of this encounter
--- OUTSIDE RECORDS SUMMARY | 2025-08-30 14:15 | XMS_ITS | Encounter Summary ---
Author Organization [facility] Address [address] [place] [address] Care Team Providers Care Batter Depositor Name Role Phone Doug Cosby MD Primary Care Provider Unavail able [place] Colasacco, Frances DO Primary Care Pro vider Unavailable Milton Hummel Primary Care Provider Unav ailable Rj Lino MD Primary Care Provider Unava ilable Milton Hummel Primary Care Provider Unav ailable [place] Colasacco, Frances DO Primary Care Pro vider Unavailable Rosalva Stephen MD Primary Care Provider [phone] [place] Colasacco, Frances DO Primary Care Pro vider Unavailable Rosalva Stephen MD Primary Care Provider [phone] Encounter Details Date Type Department Care Team Description 05/05/2018 Refill Physiatry - [address] [address] Sixto Olmedo DO Social History Tobacco Use Types Packs/Day [...] Encounter - Vicki Burr M.A. - 05/06/2018 8:50 AM EDT Last visit 03/25/18 Next visit 06/25/18 Last refill 04/12/18 Last masspat 02/19/18 * Telephone Encounter - Vicki Burr M.A. - 05/06/2018 8:50 AM EDTFrom: Deb Malcolm To: Sixto Olmedo DO Sent: 05/05/2018 9:03 PM EDT Subject: Medication Renewal Request Original authorizing provider: DO Deb Arceo would like a refill of the following medications: sulindac (CLINORIL) 200 MG tablet [Sixto Olmedo DO] Preferred pharmacy: [id number] [place], [place] - [address] [facility] Comment: can we increase the Neurontin to 3xs av day, I'm still getting muscle spasms and this rain is causing a lot of pain Medication renewals requested in this message routed to other providers: gabapentin (NEURONTIN) 300 MG capsule [Mikey Bowser PA-C] documented in this encounter Plan of Treatment Not on file documented as of this encounter Visit Diagnoses Not on filedocumented in this encounter Care Teams Batter Depositor Relationship Specialty Start Date End Date Doug [...] Medicine 08/05/19 03/05/21 Rosalva Stephen MD [address] [place] [id number] PCP - General Internal Medicine 03/06/21 03/11/21 Frances Sung, DO PCP - General Internal Medicine 03/12/21 03/31/21 Rosalva Stephen MD [address] [place], [place] [phone] PCP - General Internal Medicine 04/01/21 documented as of this encounter
--- OUTSIDE RECORDS SUMMARY | 2025-08-30 14:15 | XMS_ITS | Encounter Summary ---
Author Organization [facility] Address [address] [place] [address] Care Team Providers Care Ambulance Assistant Name Role Phone Rosalva Stephen MD Primary Care Provider [phone] Encounter Details Date Type Department Care Team Description 07/09/2021 Release of Information Medical Records [address] [place] [address] Abstract, Provider Social History Tobacco Use Types [...] have Coronavirus / COVID-19? No / Unsure 07/08/2021 9:39 AM EDT documented as of this encounter Plan of Treatment Not on file documented as of this encounter Visit Diagnoses Not on filedocumented in this encounter Care Teams Ambulance Assistant Relationship Specialty Start Date End Date Rosalva Stephen MD [address] [place] [address] [id number] PCP - General Internal Medicine 04/01/21 documented as of this encounter
--- OUTSIDE RECORDS SUMMARY | 2025-08-30 14:15 | XMS_ITS | Encounter Summary ---
Author Organization [facility] Address [address] [place] [address] Care Team Providers Care Laborer Pole Crew Name Role Phone Milton Hummel Primary Care Provider Unav ailRj Pyle MD Primary Care Provider Unava ilMilton Alicea Primary Care Provider Unav ailable [place] Colasacco, Frances DO Primary Care Pro vider Unavailable Rosalva Stephen MD Primary Care Provider [phone] [place] Colasacco, Frances DO Primary Care Pro vider Unavailable Rosalva Stephen MD Primary Care Provider [phone] Encounter Details Date Type Department Care Team Description 05/02/2019 [facility] Medical Records [address] [place] [address] Red Quach, Social History Tobacco Use Types Packs/Day Years [...] on filedocumented in this encounter Care Teams Laborer Pole Crew Relationship Specialty Start Date End Date Milton Hummel PCP - General Internal Medicine 5/17/19 9/15/19 Rj Lino MD PCP - General Internal Medicine 06/27/19 07/05/19 Milton Hummel PCP - General Internal Medicine 07/06/19 08/04/19 Frances Sung DO PCP - General Internal Medicine 08/05/19 03/05/21 Rosalva Stephen MD [address] [place] [address] [phone] PCP - General Internal Medicine 03/06/21 03/11/21 Frances Sung DO PCP - General Internal Medicine 03/12/21 03/31/21 Rosalva Stephen MD [address] [place] [address] [id number] PCP - General Internal Medicine 04/01/21 documented as of this encounter
--- OUTSIDE RECORDS SUMMARY | 2025-08-30 14:15 | XMS_ITS | Encounter Summary ---
Author Organization [facility] Address [address] [place] [address] Care Team Providers Care Ferryboat Pilot Name Role Phone Milton Hummel Primary Care Provider Unav ailable Rj Lino MD Primary Care Provider Unava ilable Milton Hummel Primary Care Provider Unav ailable [place] Colasacco, Frances DO Primary Care Pro vider Unavailable Rosalva Stephen MD Primary Care Provider [phone] [place] Colasacco, Frances DO Primary Care Pro vider Unavailable Rosalva Stephen MD Primary Care Provider [phone] Encounter Details Date Type Department Care Team Description 04/21/2019 [facility] Medical Records [address] [place] [address] Abstract, Provider Social History Tobacco Use Types [...] on filedocumented in this encounter Care Teams Ferryboat Pilot Relationship Specialty Start Date End Date Milton Hummel PCP - General Internal Medicine 02/25/19 06/26/19 Rj Lino MD PCP - General Internal Medicine 06/27/19 07/05/19 Milton Hummel PCP - General Internal Medicine 07/06/19 08/04/19 Frances Sung DO PCP - General Internal Medicine 08/05/19 03/05/21 Rosalva Stephen MD [address] [place] [address] [id number] PCP - General Internal Medicine 03/06/21 03/11/21 Frances Sung DO PCP - General Internal Medicine 03/12/21 03/31/21 Rosalva Stephen MD [address] [place] [address] [phone] PCP - General Internal Medicine 04/01/21 documented as of this encounter
--- OUTSIDE RECORDS SUMMARY | 2025-08-30 14:15 | XMS_ITS | Encounter Summary ---
Author Organization [facility] Address [address] [place] [address] Care Team Providers Care Porcelain Turner Name Role Phone Frances Sung DO Primary Care Pro vider Unavailable Rosalva Stephen MD Primary Care Provider [phone] Frances Sung DO Primary Care Pro vider Unavailable Rosalva Stephen MD Primary Care Provider [phone] Encounter Details Date Type Department Care Team Description 08/31/2020 Pt. Non Urgent Medical Question Physiatry - [address] [address] Na Reardon MD [address] [place] [address] Dr [facility] [place] [id number] Social History Tobacco Use Types Packs/Day Years [...] have Coronavirus / COVID-19? No / Unsure 08/31/2020 1:33 PM EST documented as of this encounter Progress Notes * Elizabeth Crowe M.A. - 08/31/2020 2:57 PM ESTFrom: Deb Malcolm To: Na Reardon MD Sent: 08/31/2020 2:52 PM EST Subject: PE I was admitted to [facility] with a pulmonary embolism for one day. I was at [facility] today and saw my PCP today. I have appts with cardiology, hematology and Ortho for my hip. I just wanted to inform you. documented in this encounter Plan of Treatment Not on file documented as of this encounter Visit Diagnoses Not on filedocumented in this encounter Care Teams Porcelain Turner Relationship Specialty Start Date End Date Frances Sung DO PCP - General Internal Medicine 08/05/19 03/05/21 Rosalva Stephen MD [address] [place] [id number] PCP - General Internal Medicine 03/06/21 03/11/21 Frances Sung DO PCP - General Internal Medicine 03/12/21 03/31/21 Rosalva Stephen MD [address] [place] [phone] PCP - General Internal Medicine 04/01/21 documented as of this encounter
--- OUTSIDE RECORDS SUMMARY | 2025-08-30 14:15 | XMS_ITS | Encounter Summary ---
Author Organization [facility] Address [address] [place] [address] Care Team Providers Care Sprayer [employer] Name Role Phone Rosalva Stephen MD Primary Care Provider [phone] Reason for Visit * Reason Onset Date Comments Faxed Order 12/09/2022 [facility] -12/03/2022 Encounter Details Date Type Department Care Team Description 12/09/2022 Telephone Adult Medicine [address] [address] Rosalva Stephen MD [address] [place] [address] [id number] Faxed Order ([facility] 12/01/2022-12/03/2022) Social History Tobacco Use Types Packs/Day Years [...] on filedocumented in this encounter Care Teams [employer] Relationship Specialty Start Date End Date Rosalva Stephen MD [address] [place] [address] [id number] PCP - General Internal Medicine 04/01/21 documented as of this encounter
--- OUTSIDE RECORDS SUMMARY | 2025-08-30 14:15 | XMS_ITS | Encounter Summary ---
Author Organization [facility] Address [address] [place] [address] Care Team Providers Care Assembling Motor Builder Name Role Phone Doug Cosby MD Primary Care Provider Unavail able [place] Colasacco, Frances DO Primary Care Pro vider Unavailable Milton Hummel Primary Care Provider Unav ailable Rj Lino MD Primary Care Provider Unava ilable Milton Hummel Primary Care Provider Unav ailable [place] Colasacco, Frances DO Primary Care Pro vider Unavailable Rosalva Stephen MD Primary Care Provider [phone] [place] Colasacco, Frances DO Primary Care Pro vider Unavailable Rosalva Stephen MD Primary Care Provider [phone] Encounter Details Date Type Department Care Team Description 05/17/2018 [facility] Medical Records [address] [place] [address] Abstract, Provider Social History Tobacco Use Types [...] on filedocumented in this encounter Care Teams Assembling Motor Builder Relationship Specialty Start Date End Date Doug [...] Medicine 08/05/19 03/05/21 Rosalva Stephen MD [address] [place] [id number] PCP - General Internal Medicine 03/06/21 03/11/21 Frances Sung DO PCP - General Internal Medicine 03/12/21 03/31/21 Rosalva Stephen MD [address] [place] [phone] PCP - General Internal Medicine 04/01/21 documented as of this encounter
--- OUTSIDE RECORDS SUMMARY | 2025-08-30 14:15 | XMS_ITS | Encounter Summary ---
Author Organization [facility] Address [address] [place] [address] Care Team Providers Care Certified Alcohol And Drug Counselor Name Role Phone Milton Hummel Primary Care Provider Unav ailable Rj Lino MD Primary Care Provider Unava ilable Milton Hummel Primary Care Provider Unav ailable [place] Colasacco, Frances DO Primary Care Pro vider Unavailable Rosalva Stephen MD Primary Care Provider [phone] [place] Colasacco, Frances DO Primary Care Pro vider Unavailable oRsalva Stephen MD Primary Care Provider [phone] Encounter Details Date Type Department Care Team Description 05/10/2019 [facility] Medical Records [address] [place] [address] Abstract, Provider Social History Tobacco Use Types [...] on filedocumented in this encounter Care Teams Certified Alcohol And Drug Counselor Relationship Specialty Start Date End Date Milton Hummel PCP - General Internal Medicine 02/25/19 06/26/19 Rj Lino MD PCP - General Internal Medicine 06/27/19 07/05/19 Milton Hummel PCP - General Internal Medicine 07/06/19 08/04/19 Frances Sung DO PCP - General Internal Medicine 08/05/19 03/05/21 Rosalva Stephen MD [address] [place] [address] [id number] PCP - General Internal Medicine 03/06/21 03/11/21 Frances Sung DO PCP - General Internal Medicine 03/12/21 03/31/21 Rosalva Stephen MD [address] [place] [phone] PCP - General Internal Medicine 04/01/21 documented as of this encounter
--- OUTSIDE RECORDS SUMMARY | 2025-08-30 14:15 | XMS_ITS | Encounter Summary ---
Author Organization [facility] Address [address] [place] [address] Care Team Providers Care Project Construction Assistant Manager Name Role Phone Doug Cosby MD Primary Care Provider Unavail able [place] Colasacco, Frances DO Primary Care Pro vider Unavailable Milton Hummel Primary Care Provider Unav ailable Rj Lino MD Primary Care Provider Unava ilable Milton Hummel Primary Care Provider Unav ailable [place] Colasacco, Frances DO Primary Care Pro vider Unavailable Rosalva Stephen MD Primary Care Provider [phone] [place] Colasacco, Frances DO Primary Care Pro vider Unavailable Rosalva Stephen MD Primary Care Provider [phone] Encounter Details Date Type Department Care Team Description 06/23/2018 [facility] Medical Records [address] [place] [address] Abstract, Provider Social History Tobacco Use Types [...] on filedocumented in this encounter Care Teams Project Construction Assistant Manager Relationship Specialty Start Date End Date Doug [...] Internal Medicine 08/05/19 03/05/21 Rosalva Stephen MD [address] [place] [phone] PCP - General Internal Medicine 03/06/21 03/11/21 Frances Sung DO PCP - General Internal Medicine 03/12/21 03/31/21 Rosalva Stephen MD [address] [place] [phone] PCP - General Internal Medicine 04/01/21 documented as of this encounter
--- OUTSIDE RECORDS SUMMARY | 2025-08-30 14:15 | XMS_ITS | Encounter Summary ---
Author Organization [facility] Address [address] [place] [address] Care Team Providers Care Golf Club Head Former Name Role Phone Frances Sung DO Primary Care Pro vider Unavailable Rosalva Stephen MD Primary Care Provider [phone] Frances Sung DO Primary Care Pro vider Unavailable Rosalva Stephen MD Primary Care Provider [phone] Encounter Details Date Type Department Care Team Description 08/29/2020 [facility] Medical Records [address] [place] [id number] [place] [address] Social History Tobacco Use Types Packs/Day Years [...] PM EST documented as of this encounter Plan of Treatment Not on file documented as of this encounter Visit Diagnoses Not on filedocumented in this encounter Care Teams Golf Club Head Former Relationship Specialty Start Date End Date Frances Sung PCP - General Internal Medicine 08/05/19 03/05/21 Rosalva Stephen MD [address] [place] [address] [phone] PCP - General Internal Medicine 03/06/21 03/11/21 Frances Sung DO PCP - General Internal Medicine 03/12/21 03/31/21 Rosalva Stephen MD [address] [place] [address] [phone] PCP - General Internal Medicine 04/01/21 documented as of this encounter
--- OUTSIDE RECORDS SUMMARY | 2025-08-30 14:15 | XMS_ITS | Encounter Summary ---
Author Organization [facility] Address [address] [place] [address] Care Team Providers Care Stage Driver Name Role Phone Doug Cosby MD Primary Care Provider Unavail able [place] Colasacco, Frances DO Primary Care Pro vider Unavailable Milton Hummel Primary Care Provider Unav ailable Rj Lino MD Primary Care Provider Unava ilable Milton Hummel Primary Care Provider Unav ailable [place] Colasacco, Frances DO Primary Care Pro vider Unavailable Rosalva Stephen MD Primary Care Provider [phone] [place] Colasacco, Frances DO Primary Care Pro vider Unavailable Rosalva Stephen MD Primary Care Provider [phone] Encounter Details Date Type Department Care Team Description 05/05/2018 Refill Physiatry - [address] [address] Alejandro Myers PA-C Social History Tobacco Use Types Packs/Day [...] Encounter - Vicki Burr M.A. - 05/06/2018 8:48 AM EDT Last visit 03/25/18 Next visit 06/25/18 Last refill 03/29/18 Last masspat 02/19/18 * Telephone Encounter - Vicki Burr M.A. - 05/06/2018 8:44 AM EDTFrom: Deb Malcolm To: Alejandro Myers PA-C Sent: 05/05/2018 9:03 PM EDT Subject: Medication Renewal Request Original authorizing provider: CLAUDE FOY would like a refill of the following medications: cyclobenzaprine (FLEXERIL) 10 MG tablet [ALEJANDRO MYERS PA-C] Preferred pharmacy: [id number] [place], [place] - [address] [facility] Comment: documented in this encounter Plan of Treatment Not on file documented as of this encounter Visit Diagnoses Diagnosis Fibromyalgia Mylagia and myositis, unspecified documented in this encounter Care Teams Stage Driver Relationship Specialty Start Date End Date Doug [...] Internal Medicine 08/05/19 03/05/21 Rosalva Stephen MD [address] [place] [address] PCP - General Internal Medicine 03/06/21 03/11/21 Frances Sung, PCP - General Internal Medicine 03/12/21 03/31/21 Rosalva Stephen MD [address] [place] [phone] PCP - General Internal Medicine 04/01/21 documented as of this encounter
--- OUTSIDE RECORDS SUMMARY | 2025-08-30 14:15 | XMS_ITS | Encounter Summary ---
Author Organization [facility] Address [address] [place] [address] Care Team Providers Care Psychology Instructor Name Role Phone Doug Cosby MD Primary Care Provider Unavail able [place] Colasacco, Frances DO Primary Care Pro vider Unavailable Milton Hummel Primary Care Provider Unav ailable Rj Lino MD Primary Care Provider Unava ilable Milton Hummel Primary Care Provider Unav ailable [place] Colasacco, Frances DO Primary Care Pro vider Unavailable Rosalva Stephen MD Primary Care Provider [phone] [place] Colasacco, Frances DO Primary Care Pro vider Unavailable Rosalva Stephen MD Primary Care Provider [phone] Encounter Details Date Type Department Care Team Description 05/14/2018 [facility] Medical Records [address] [place] [address] Abstract, Provider Social History Tobacco Use Types [...] on filedocumented in this encounter Care Teams Psychology Instructor Relationship Specialty Start Date End Date Doug [...] Internal Medicine 08/05/19 03/05/21 Rosalva Stephen MD [address] [place] [phone] PCP - General Internal Medicine 03/06/21 03/11/21 Frances Sung DO PCP - General Internal Medicine 03/12/21 03/31/21 Rosalva Stephen MD [address] [place] [id number] PCP - General Internal Medicine 04/01/21 documented as of this encounter
--- OUTSIDE RECORDS SUMMARY | 2025-08-30 14:15 | XMS_ITS | Encounter Summary ---
Author Organization [facility] Address [address] [place] [address] Care Team Providers Care Senior Analyst Market Intelligence Name Role Phone Rosalva Stephen MD Primary Care Provider [phone] Encounter Details Date Type Department Care Team Description 07/02/2021 Pt. Non Urgent Medical Question Adult Medicine [address] [phone] Rosalva Stephen MD [address] [place] [address] [phone] Social History Tobacco Use Types Packs/Day Years [...] have Coronavirus / COVID-19? No / Unsure 07/04/2021 1:48 PM EDT documented as of this encounter Miscellaneous Notes * Telephone Encounter - Tata Ruffin M.A. - 07/03/2021 7:06 AM EDTFrom: Deb Malcolm To: Jac Stephen Sent: 07/02/2021 5:51 PM EDT Subject: Question re: celiac disease testing I was told I was going to be tested for celiac disease for almost 4 months of diarrhea. I???ve lost20 lbs and only recently had soft stool after taking Imodium. I still don???t have an appetite. Also, I???m not working, I cannot afford vitamin D or Culturelle over the counter. Can something be prescribed for me that my insur ance will cover please? documented in this encounter Plan of Treatment Not on file documented as of this encounter Visit Diagnoses Not on filedocumented in this encounter Care Teams Senior Analyst Market Intelligence Relationship Specialty Start Date End Date Rosalva Stephen MD [address] [place] [phone] PCP - General Internal Medicine 04/01/21 documented as of this encounter
--- OUTSIDE RECORDS SUMMARY | 2025-08-30 14:15 | XMS_ITS | Encounter Summary ---
Author Organization [facility] Address [address] [place] [address] Care Team Providers Care Powder Carrier Name Role Phone Frances Sung DO Primary Care Pro vider Unavailable Rosalva Stephen MD Primary Care Provider [phone] Frances Sung DO Primary Care Pro vider Unavailable Rosalva Stephen MD Primary Care Provider [phone] Encounter Details Date Type Department Care Team Description 09/10/2020 Pt. Non Urgent Medical Question Physiatry - [address] [address] Na Reardon MD [address] [place] [address] Dr [facility] [place] [phone] Social History Tobacco Use Types Packs/Day Years [...] have Coronavirus / COVID-19? No / Unsure 09/04/2020 2:04 PM EST documented as of this encounter Progress Notes * Alyssa Lyon L.P.N. - 09/10/2020 2:44 PM ESTFrom: Deb Malcolm To: Na Reardon MD Sent: 09/10/2020 1:18 PM EST Subject: Pain medication I'm due for a renewal of my pain medication next week and wanted to know if they could be switched to whatever the hospital had me on? The Percocet is only lasting about 2 hours and they said I'm notallowed to take NSAIDs while I'm on Eliquis. I have to get my muscle relaxers switched every now and again for the same reason. I don't know why or if it has anything to do with hEDS but with my back, neck, knee, shoulders, hip and ankle, the pain is too much. They gave me in a walking boot for a few weeks and I'm seeing a hip doctor in 2 weeks. Since my left shoulder surgery, I've been sleeping on my right side but my right shoulder is starting to cause me pain too. The pain is keeping me fromsleeping well and when I finally get to sleep, it wake s me up at 3-4am. Should I make an appointment? documented in this encounter Plan of Treatment Not on file documented as of this encounter Visit Diagnoses Not on filedocumented in this encounter Care Teams Powder Carrier Relationship Specialty Start Date End Date Frances Sung DO PCP - General Internal Medicine 08/05/19 03/05/21 Rosalva Stephen MD [address] [place] [address] PCP - General Internal Medicine 03/06/21 03/11/21 Frances Sung DO PCP - General Internal Medicine 03/12/21 03/31/21 Rosalva Stephen MD [address] [place] [address] PCP - General Internal Medicine 04/01/21 documented as of this encounter
--- OUTSIDE RECORDS SUMMARY | 2025-08-30 14:15 | XMS_ITS | Encounter Summary ---
Author Organization [facility] Address [address] [place] [address] Care Team Providers Care Loan Reviewer Name Role Phone Krakowiak Colasacco, Frances DO [...] Unavailable Rosalva Stephen MD Primary Care Provider [phone] Krakowiak Colasacco, Frances DO Primary Care Pro vider Unavailable Rosalva Stephen MD Primary Care Provider [phone] Encounter Details Date Type Department Care Team Description 04/26/2018 Pt. Non Urgent Medical Question Physiatry - [address] [address] Na Reardon MD [address] [place] [address] [place] [facility], [place] [id number] Social History Tobacco Use Types Packs/Day Years [...] as of this encounter Progress Notes * Susan Nielson M.A. - 04/26/2018 4:49 PM EDTFrom: Deb Malcolm To: Na Reardon MD Sent: 04/26/2018 4:42 PM EDT Subject: Job Loss I filed for disability recently due to losing my job. I used my intermittent leave of absence afterexperiencing pain after a physical therapy session. My grant manager called me and my toxicology supervisor in for ameeting and let me know that she is cancelling all shifts I was signed up for and that she will notallow me to sign up for any future shifts and that she has enough staff and that eventually my position will be terminated but at the time I am not allowed to work and will eventually be terminated. She made it a point to mention that my coworkers complained that I'm not able to do the heavy lifting, pushing, etc. The clinical nurse specialist that I see at [facility] for psychiatric counseling and medications stated that I should apply for disability at this time so I am awaiting to hear back from them but I did give your information as well as the other doctors that I see. I'm unsure if they will be calling to verify any information but I thought I'd send you an email so that you are aware of the situation. Thank you. documented in this encounter Plan of Treatment Not on file documented as of this encounter Visit Diagnoses Not on filedocumented in this encounter Care Teams Loan Reviewer Relationship Specialty Start Date End Date Frances [...] Internal Medicine 08/05/19 03/05/21 Rosalva Stephen MD [address] [place] [id number] PCP - General Internal Medicine 03/06/21 03/11/21 Frances Sung DO PCP - General Internal Medicine 03/12/21 03/31/21 Rosalva Stephen MD [address] [place] [phone] PCP - General Internal Medicine 04/01/21 documented as of this encounter
--- OUTSIDE RECORDS SUMMARY | 2025-08-30 14:16 | XMS_ITS | Encounter Summary ---
Author Organization [facility] Address [address] [place] [address] Care Team Providers Care Geophysical Prospecting Surveyor Name Role Phone Doug Cosby MD Primary Care Provider Unavail able Krakowiak Colasacco, Frances DO Primary Care Pro vider Unavailable Milton Hummel Primary Care Provider Unav ailable Rj Lino MD Primary Care Provider Unava ilable Milton Hummel Primary Care Provider Unav ailable K[place]owiak Colasacco, Frances DO Primary Care Pro vider Unavailable Rosalva Stephen MD Primary Care Provider [phone] Krakowiak Colasacco, Frances DO Primary Care Pro vider Unavailable Rosalva Stephen MD Primary Care Provider [phone] Encounter Details Date Type Department Care Team Description 07/09/2018 Release of Information Medical Records [address] [place] [id number] Abstract, Provider Social History Tobacco Use Types [...] on filedocumented in this encounter Care Teams Geophysical Prospecting Surveyor Relationship Specialty Start Date End Date Doug [...] Internal Medicine 08/05/19 03/05/21 Rosalva Stephen MD [address] [place] [address] PCP - General Internal Medicine 03/06/21 03/11/21 Frances Sung DO PCP - General Internal Medicine 03/12/21 03/31/21 Rosalva Stephen MD [address] [place] [address] PCP - General Internal Medicine 04/01/21 documented as of this encounter
--- OUTSIDE RECORDS SUMMARY | 2025-08-30 14:16 | XMS_ITS | Encounter Summary ---
Author Organization [facility] Address [address] [place] [address] Care Team Providers Care Railroad Commissioner Name Role Phone Frances Sung DO Primary Care Pro vider Unavailable Rosalva Stephen MD Primary Care Provider [phone] Frances Sung DO Primary Care Pro vider Unavailable Rosalva Stephen MD Primary Care Provider [phone] Encounter Details Date Type Department Care Team Description 09/05/2020 [facility] Medical Records [address] [place] [address] Abstract, Provider Social History Tobacco Use Types [...] on filedocumented in this encounter Care Teams Railroad Commissioner Relationship Specialty Start Date End Date Frances Sung DO PCP - General Internal Medicine 08/05/19 03/05/21 Rosalva Stephen MD [address] [place] [address] PCP - General Internal Medicine 03/06/21 03/11/21 Frances Sung DO PCP - General Internal Medicine 03/12/21 03/31/21 Rosalva Stephen MD [address] [place] [address] [phone] PCP - General Internal Medicine 04/01/21 documented as of this encounter
--- OUTSIDE RECORDS SUMMARY | 2025-08-30 14:16 | XMS_ITS | Encounter Summary ---
Author Organization [facility] Address [address] [place] [address] Care Team Providers Care Framing Consultant Name Role Phone Rosalva Stephen MD Primary Care Provider [phone] Encounter Details Date Type Department Care Team Description 01/03/2022 Hospital Medical Records [address] [place] [address] Saeed Delong Social History Tobacco Use Types Packs/Day Years [...] on filedocumented in this encounter Care Teams Framing Consultant Relationship Specialty Start Date End Date Rosalva Stephen MD [address] [place], [place] [phone] PCP - General Internal Medicine 04/01/21 documented as of this encounter
--- OUTSIDE RECORDS SUMMARY | 2025-08-30 14:16 | XMS_ITS | Encounter Summary ---
Author Organization [facility] Address [address] [place] [address] Care Team Providers Care Information Engineer Name Role Phone Rosalva Stephen MD Primary Care Provider [phone] Encounter Details Date Type Department Care Team Description 01/10/2022 Pt. Referral Request [facility] Jamey [address] [place] [address] [phone] Md Jamey Social History Tobacco Use Types Packs/Day Years [...] Recorded In the last 10 days, have brittny woodson been in contact with someone who was confirmed or suspected to have Coronavirus/COVID-19? Unable to assess 01/08/2022 9:49 AM EDT documented as of this encounter Plan of Treatment Not on file documented as of this encounter Visit Diagnoses Not on filedocumented in this encounter Care Teams Information Engineer Relationship Specialty Start Date End Date Rosalva Stephen MD [address] [place] [address] [phone] PCP - General Internal Medicine 04/01/21 documented as of this encounter
--- OUTSIDE RECORDS SUMMARY | 2025-08-30 14:16 | XMS_ITS | Encounter Summary ---
Author Organization [facility] Address [address] [place] [address] Care Team Providers Care Interlocking Machine Operator Name Role Phone Rosalva Stephen MD Primary Care Provider [phone] Reason for Visit * Reason Onset Date Comments APPOINTMENT 01/08/2022 Encounter Details Date Type Department Care Team Description 01/08/2022 Telephone Adult Medicine [facility] [address] [place] [address] [phone] Rosalva Stephen MD [address] [place], [place] [phone] APPOINTMENT Social History Tobacco Use Types Packs/Day Years [...] encounter Miscellaneous Notes * Telephone Encounter - Anaerendira LopezBella - 01/08/2022 10:05 AM EDT Called and left vm advising appt scheduled today with Magalis needed to be cancelled as provider is not able to see her for reason for appt. Appt needed to be booked with pcp only. I also advised pt msg to pcp will be sent to see if I can move up her hospital f/u. documented in this encounter Plan of Treatment Not on file documented as of this encounter Visit Diagnoses Not on filedocumented in this encounter Care Teams Interlocking Machine Operator Relationship Specialty Start Date End Date Rosalva Stephen MD [address] [place] [address] PCP - General Internal Medicine 04/01/21 documented as of this encounter
--- OUTSIDE RECORDS SUMMARY | 2025-08-30 14:16 | XMS_ITS | Encounter Summary ---
Author Organization [facility] Address [address] [place] [address] Care Team Providers Care Women'S Studies Lecturer Name Role Phone Frances Sung DO Primary Care Pro vider Unavailable Rosalva Stephen MD Primary Care Provider [phone] Frances Sung DO Primary Care Pro vider Unavailable Rosalva Stephen MD Primary Care Provider [phone] Encounter Details Date Type Department Care Team Description 09/17/2020 Home Health Certification Medical Records [address] [place] [address] [facility], [place] [address] Social History Tobacco Use Types Packs/Day Years [...] on filedocumented in this encounter Care Teams Women'S Studies Lecturer Relationship Specialty Start Date End Date Frances Sung DO PCP - General Internal Medicine 08/05/19 03/05/21 Rosalva Stephen MD [address] [place] [address] PCP - General Internal Medicine 03/06/21 03/11/21 Frances Sung DO PCP - General Internal Medicine 03/12/21 03/31/21 Rosalva Stephen MD [address] [place] [address] PCP - General Internal Medicine 04/01/21 documented as of this encounter
--- OUTSIDE RECORDS SUMMARY | 2025-08-30 14:16 | XMS_ITS | Encounter Summary ---
Author Organization [facility] Address [address] [place] [address] Care Team Providers Care Gas Collection System Operator Name Role Phone Milton Hummel Primary Care Provider Unav ailable Rj Lino MD Primary Care Provider Unava ilable Milton Hummel Primary Care Provider Unav ailable Krakowiak Colasacco, Frances DO Primary Care Pro vider Unavailable Rosalva Stephen MD Primary Care Provider [phone] Krakowiak Colasacco, Frances DO Primary Care Pro vider Unavailable Rosalva Stephen MD Primary Care Provider [phone] Encounter Details Date Type Department Care Team Description 06/23/2019 Refill Physiatry - [address] [address] Na Reardon MD [address] [place] [address] [place] [facility] [place] [id number] Social History Tobacco Use Types Packs/Day Years [...] Telephone Encounter - Na Reardon MD - 06/23/2019 11:41 AM EDT duplicate * Telephone Encounter - Susan Nielson M.A. - 06/23/2019 11:13 AM EDT Script was already completed on 06/22/19 Please refuse script. Thank you * Telephone Encounter - Susan Nielson M.A. - 06/23/2019 11:13 AM EDTFrom: Deb Malcolm To: Na Reardon MD Sent: 06/23/2019 11:09 AM EDT Subject: Medication Renewal Request Original authorizing provider: MD Deb Gomes would like a refill of the following medications: oxycodone-acetaminophen (PERCOCET) 5-325 MG per tablet [Na Reardon MD] Preferred pharmacy: [facility] [address] [place] [address] DR. GARZA Comment: Would like to be able to tack picker my prescription tomorrow morning please. Thank you. documented in this encounter Plan of Treatment Not on file documented as of this encounter Visit Diagnoses Diagnosis Chronic left shoulder pain Pain in joint, shoulder region History of cervical spinal surgery Personal history of surgery to other organs Chronic pain of right knee documented in this encounter Care Teams Gas Collection System Operator Relationship Specialty Start Date End Date Milton Hummel PCP - General Internal Medicine 02/25/19 06/26/19 Rj Lino MD PCP - General Internal Medicine 06/27/19 07/05/19 Milton Hummel PCP - General Internal Medicine 07/06/19 08/04/19 Frances Sung DO PCP - General Internal Medicine 08/05/19 03/05/21 Rosalva Stephen MD [address] [place] [phone] PCP - General Internal Medicine 03/06/21 03/11/21 Frances Sung DO PCP - General Internal Medicine 03/12/21 03/31/21 Rosalva Stephen MD [address] [place] [phone] PCP - General Internal Medicine 04/01/21 documented as of this encounter
--- OUTSIDE RECORDS SUMMARY | 2025-08-30 14:16 | XMS_ITS | Encounter Summary ---
Author Organization [facility] Address [address] [place] [address] Care Team Providers Care Field Service Technician Name Role Phone Rosalva Stephen MD Primary Care Provider [phone] Encounter Details Date Type Department Care Team Description 12/27/2021 Hospital Medical Records [address] [place] [address] Social History Tobacco Use Types Packs/Day Years [...] on filedocumented in this encounter Care Teams Field Service Technician Relationship Specialty Start Date End Date Rosalva Stepehn MD [address] [place] [address] PCP - General Internal Medicine 04/01/21 documented as of this encounter
--- OUTSIDE RECORDS SUMMARY | 2025-08-30 14:16 | XMS_ITS | Encounter Summary ---
Author Organization [facility] Address [address] [place] [address] Care Team Providers Care Machine Setter Automatic Name Role Phone Milton Hummel Primary Care Provider Unav ailable Rj Lino MD Primary Care Provider Unava ilable Milton Hummel Primary Care Provider Unav ailable Krakowiak Colasacco, Frances DO Primary Care Pro vider Unavailable Rosalva Stephen MD Primary Care Provider [phone] Krak[place]iak Colasacco, Frances DO Primary Care Pro vider Unavailable Rosalva Stephen MD Primary Care Provider [phone] Encounter Details Date Type Department Care Team Description 06/23/2019 [facility] Medical Records [address] [place] [address] Abstract, Provider Social History Tobacco Use Types [...] on filedocumented in this encounter Care Teams Machine Setter Automatic Relationship Specialty Start Date End Date Milton Hummel PCP - General Internal Medicine 02/25/19 06/26/19 Rj Lino MD PCP - General Internal Medicine 06/27/19 07/05/19 Milton Hummel PCP - General Internal Medicine 07/06/19 08/04/19 Frances Sung DO PCP - General Internal Medicine 08/05/19 03/05/21 Rosalva Stephen MD [address] [place] [address] [phone] PCP - General Internal Medicine 03/06/21 03/11/21 Frances Sung DO PCP - General Internal Medicine 03/12/21 03/31/21 Rosalva Stephen MD [address] [place] [address] [phone] PCP - General Internal Medicine 04/01/21 documented as of this encounter
--- OUTSIDE RECORDS SUMMARY | 2025-08-30 14:16 | XMS_ITS | Encounter Summary ---
Author Organization [facility] Address [address] [place] [address] Care Team Providers Care Armature Winder Repair Name Role Phone Milton Hummel Primary Care Provider Unav ailable Rj Lino MD Primary Care Provider Unava ilable Milton Hummel Primary Care Provider Unav ailable [place]owiak Colasacco, Frances DO Primary Care Pro vider Unavailable Rosalva Stephen MD Primary Care Provider [phone] Krakowiak Colasacco, Frances DO Primary Care Pro vider Unavailable Rosalva Stephen MD Primary Care Provider [phone] Encounter Details Date Type Department Care Team Description 05/18/2019 Orders Only Medical Records [address] [place] [address] Rae Carpenter PA-C Social History Tobacco Use Types Packs/Day [...] Procedure Name Priority Date/Time Associated Diagnosis Comments OUTSIDE ULTRASOUND Routine 05/17/2019 documented in this encounter Results * OUTSIDE ULTRASOUND (05/17/2019) Rae Carpenter PA-C RADIOLOGY documented in this encounter Visit Diagnoses Not on filedocumented in this encounter Care Teams Armature Winder Repair Relationship Specialty Start Date End Date Milton Hummel PCP - General Internal Medicine 02/25/19 06/26/19 Rj Lino MD PCP - General Internal Medicine 06/27/19 07/05/19 Milton Hummel PCP - General Internal Medicine 07/06/19 08/04/19 Frances Sung DO PCP - General Internal Medicine 08/05/19 03/05/21 Rosalva Stephen MD [address] [place] [address] PCP - General Internal Medicine 03/06/21 03/11/21 Frances Sung DO PCP - General Internal Medicine 03/12/21 03/31/21 Rosalva Stephen MD [address] [place] [address] PCP - General Internal Medicine 04/01/21 documented as of this encounter
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
--- OUTSIDE RECORDS SUMMARY | 2025-08-30 14:16 | XMS_ITS | Encounter Summary ---
Author Organization [facility] Address [address] [place] [address] Care Team Providers Care Tax Compliance Manager Name Role Phone Frances Sung DO Primary Care Pro vider Unavailable Rosalva Stephen MD Primary Care Provider [phone] Frances Sung DO Primary Care Pro vider Unavailable Rosalva Stephen MD Primary Care Provider [phone] Encounter Details Date Type Department Care Team Description 09/13/2020 Refill Rheumatology - [address] [address] Loyd Langston PA Social History Tobacco Use [...] on filedocumented in this encounter Care Teams Tax Compliance Manager Relationship Specialty Start Date End Date Frances Sung DO PCP - General Internal Medicine 08/05/19 03/05/21 Rosalva Stephen MD [address] [place] [address] PCP - General Internal Medicine 03/06/21 03/11/21 Frances Sung DO PCP - General Internal Medicine 03/12/21 03/31/21 Rosalva Stephen MD [address] [place] [phone] PCP - General Internal Medicine 04/01/21 documented as of this encounter
--- OUTSIDE RECORDS SUMMARY | 2025-08-30 14:17 | XMS_ITS | Encounter Summary ---
Author Organization [facility] Address [address] [place] [address] Care Team Providers Care Garnett Feeder Name Role Phone Frances Sung DO Primary Care Pro vider Unavailable Rosalva Stephen MD Primary Care Provider [phone] Frances Sung DO Primary Care Pro vider Unavailable Rosalva Stephen MD Primary Care Provider [phone] Encounter Details Date Type Department Care Team Description 09/13/2020 Aquaculture And Fisheries Professor Report Medical Records [address] [place] [address] Toñito Menezes MD Social History Tobacco Use Types Packs/Day [...] on filedocumented in this encounter Care Teams Garnett Feeder Relationship Specialty Start Date End Date Frances Sung DO PCP - General Internal Medicine 08/05/19 03/05/21 Rosalva Stephen MD [address] [place] [address] PCP - General Internal Medicine 03/06/21 03/11/21 Frances Sung DO PCP - General Internal Medicine 03/12/21 03/31/21 Rosalva Stephen MD [address] [place] [address] PCP - General Internal Medicine 04/01/21 documented as of this encounter
--- OUTSIDE RECORDS SUMMARY | 2025-08-30 14:17 | XMS_ITS | Encounter Summary ---
Author Organization [facility] Address [address] [place] [address] Care Team Providers Care Windows Software Developer Name Role Phone Frances Sung DO Primary Care Pro vider Unavailable Rosalva Stephen MD Primary Care Provider [phone] Frances Sung DO Primary Care Pro vider Unavailable Rosalva Stephen MD Primary Care Provider [phone] Encounter Details Date Type Department Care Team Description 09/21/2020 Hospital Superintendent Report Medical Records [address] [place] [address] Fernie North Social History Tobacco Use Types Packs/Day Years [...] have Coronavirus / COVID-19? No / Unsure 09/21/2020 1:59 PM EST documented as of this encounter Plan of Treatment Not on file documented as of this encounter Visit Diagnoses Not on filedocumented in this encounter Care Teams Windows Software Developer Relationship Specialty Start Date End Date Frances Sung DO PCP - General Internal Medicine 08/05/19 03/05/21 Rosalva Stephen MD [address] [place] [address] PCP - General Internal Medicine 03/06/21 03/11/21 Frances Sung DO PCP - General Internal Medicine 03/12/21 03/31/21 Rosalva Stephen MD [address] [place] [address] PCP - General Internal Medicine 04/01/21 documented as of this encounter
--- OUTSIDE RECORDS SUMMARY | 2025-08-30 14:17 | XMS_ITS | Encounter Summary ---
Author Organization [facility] Address [address] [place] [address] Care Team Providers Care Inspector Repairer Sandstone Name Role Phone Sharla Gaytan, Frances DO Primary Care Pro vider Unavailable Milton Hummel Primary Care Provider Unav ailable Rj Lino MD Primary Care Provider Unava ilable Milton Hummel Primary Care Provider Unav ailable Denicekojob Colpriyankacco, Frances DO Primary Care Pro vider Unavailable Rosalva Stephen MD Primary Care Provider [phone] Krakojob Colasajohanneo, Frances DO Primary Care Pro vider Unavailable Rosalva Stephen MD Primary Care Provider [phone] Encounter Details Date Type Department Care Team Description 09/05/2018 Pt. Non Urgent Medical Question Physiatry - [address] [address] Na Reardon MD [address] [place] [address] Dr [place] [id number] Social History Tobacco Use Types Packs/Day Years [...] encounter Progress Notes * Elizabeth Hendricks - 09/06/2018 9:50 AM ESTFrom: Deb Malcolm To: Na Reardon MD Sent: 09/05/2018 11:12 AM EST Subject: pain and generalized hypermobility syndrome Article regarding pain & generalized hypermobility syndrome https://www.ncbi.nlm.nih.gov/pmc/articles/WDO3071758/ The reasons for why upregulation of brain sensitivity does occur in patients with HMS and EDS-HT are unknown. This could be a time-dependent process in which pain sensitivity thresholds become lowered as pain flare-ups occur, until the point that only minimal provocation will cause a central-oriented pain response. Pain becomes chronic from a neurological origin. Although these observations wererecorded in a cross-sectional study, it was hypothesized that the process of pain-induced central nervous system upregulation could cause the onset of chronicity. If central sensitization is an adaptation of the central nervous system to counter adverse events due to joint instability (and the lackof proprioceptive feedback), this adaptation could be viewed as a compensatory mechanism and might even be protective. To date, much is unclear on the role of the central nervous system in this group of patients in terms of the clinical relevance of lowered pain thresholds, as well as treatment with medication. documented in this encounter Plan of Treatment Not on file documented as of this encounter Visit Diagnoses Not on filedocumented in this encounter Care Teams Inspector Repairer Sandstone Relationship Specialty Start Date End Date Frances Sung DO PCP - General Internal Medicine 07/12/18 02/24/19 Miltno Hummel PCP - General Internal Medicine 02/25/19 06/26/19 Rj Lino MD PCP - General Internal Medicine 06/27/19 07/05/19 Milton Hummel PCP - General Internal Medicine 07/06/19 08/04/19 Frances Sung DO PCP - General Internal Medicine 08/05/19 03/05/21 Rosalva Stephen MD [address] [place] [id number] PCP - General Internal Medicine 03/06/21 03/11/21 Frances Sung, DO PCP - General Internal Medicine 03/12/21 03/31/21 Rosalva Stephen MD [address] [place], [place] [phone] PCP - General Internal Medicine 04/01/21 documented as of this encounter
--- OUTSIDE RECORDS SUMMARY | 2025-08-30 14:17 | XMS_ITS | Encounter Summary ---
Author Organization [facility] Address [address] [place] [address] Care Team Providers Care Chassis Engineer Name Role Phone Frances Sung DO Primary Care Pro vider Unavailable Milton Hummel Primary Care Provider Unav ailable Rj Lino MD Primary Care Provider Unava ilable Milton Hummel Primary Care Provider Unav ailable Frances Sung DO Primary Care Pro vider Unavailable Rosalva Stephen MD Primary Care Provider [phone] Frances Sung DO Primary Care Pro vider Unavailable Rosalva Stephen MD Primary Care Provider [phone] Encounter Details Date Type Department Care Team Description 09/05/2018 Pt. Non Urgent Medic al Question Physiatry - [address] [id number] Alejandro William PA-C Social History Tobacco Use Types Packs/Day [...] on filedocumented in this encounter Care Teams Chassis Engineer Relationship Specialty Start Date End Date Frances Sung DO PCP - General Internal Medicine 07/12/18 02/24/19 Milton Hummel PCP - General Internal Medicine 02/25/19 06/26/19 Rj Lino MD PCP - General Internal Medicine 06/27/19 07/05/19 Milton Hummel PCP - General Internal Medicine 07/06/19 08/04/19 Frances Sung DO PCP - General Internal Medicine 08/05/19 03/05/21 Rosalva Stephen MD [address] [place] [id number] PCP - General Internal Medicine 03/06/21 03/11/21 Frances Sung, PCP - General Internal Medicine 03/12/21 03/31/21 Rosalva Stephen MD [address] [place] [id number] PCP - General Internal Medicine 04/01/21 documented as of this encounter
--- OUTSIDE RECORDS SUMMARY | 2025-08-30 14:17 | XMS_ITS | Encounter Summary ---
Author Organization [facility] Address [address] [place] [address] Care Team Providers Care Mailroom Courier Name Role Phone [place] palma Primary Care Provider Unav ailable Frances Sung DO Primary Care Pro vider Unavailable Rosalva Stephen MD Primary Care Provider [phone] Frances Sung DO Primary Care Pro vider Unavailable Rosalva Stephen MD Primary Care Provider [phone] Encounter Details Date Type Department Care Team Description 07/08/2019 Pt. Non Urgent Medical Question Rheumatology - [address] [address] Loyd Langston PA Social History Tobacco Use [...] as of this encounter Progress Notes * Lizabeth Irene M.A. - 07/08/2019 9:44 AM EDTFrom: Deb Malcolm To: Loyd Langston PA-C Sent: 07/08/2019 1:50 AM EDT Subject: regarding X-rays I'm definitely still having pain in my wrists and elbows and feel more comfortable wearing the wrist braces that your office personnel have given me. My wrists are the worst. Any movement of my wrists cause pain. documented in this encounter Plan of Treatment Not on file documented as of this encounter Visit Diagnoses Not on filedocumented in this encounter Care Teams Mailroom Courier Relationship Specialty Start Date End Date Milton Hummel PCP - General Internal Medicine 07/06/19 08/04/19 Frances Sung DO PCP - General Internal Medicine 08/05/19 03/05/21 Rosalva Stephen MD [address] [place] [address] PCP - General Internal Medicine 03/06/21 03/11/21 Frances Sung DO PCP - General Internal Medicine 03/12/21 03/31/21 Rosalva Stephen MD [address] [place] [address] PCP - General Internal Medicine 04/01/21 documented as of this encounter
--- OUTSIDE RECORDS SUMMARY | 2025-08-30 14:17 | XMS_ITS | Encounter Summary ---
Author Organization [facility] Address [address] [place] [address] Care Team Providers Care Operation Agent Name Role Phone Frances Sung DO Primary Care Pro vider Unavailable Rosalva Stephen MD Primary Care Provider [phone] Frances Sung DO Primary Care Pro vider Unavailable Rosalva Stephen MD Primary Care Provider [phone] Encounter Details Date Type Department Care Team Description 09/20/2020 Garage Construction Equipment Mechanic Report Medical Records [address] [place] [address] James Ledesma MD Social History Tobacco Use Types Packs/Day [...] on filedocumented in this encounter Care Teams Operation Agent Relationship Specialty Start Date End Date Frances Sung DO PCP - General Internal Medicine 08/05/19 03/05/21 Rosalva Stephen MD [address] [place] [address] PCP - General Internal Medicine 03/06/21 03/11/21 Frances Sung DO PCP - General Internal Medicine 03/12/21 03/31/21 Rosalva Stephen MD [address] [place] [address] PCP - General Internal Medicine 04/01/21 documented as of this encounter
--- OUTSIDE RECORDS SUMMARY | 2025-08-30 14:17 | XMS_ITS | Encounter Summary ---
Author Organization [facility] Address [address] [place] [address] Care Team Providers Care Block Operator Name Role Phone Milton Hummel Primary Care Provider Unav ailable Frances Sung DO Primary Care Pro vider Unavailable Rosalva Stephen MD Primary Care Provider [phone] Frances Sung DO Primary Care Pro vider Unavailable Rosalva Stephen MD Primary Care Provider [phone] Encounter Details Date Type Department Care Team Description 07/06/2019 Orders Only Adult Medicine [address] [address] Na Reardon MD [address] [place] [address] [place] [address] long term acute care registered nurse use of drug (Primary Dx) Social History Tobacco Use Types Packs/Day Years [...] as of this encounter Plan of Treatment Scheduled Orders Name Type Priority Associated Diagnoses Orde r Schedule CHG DRUG SCREENING CANNABINOIDS NATURAL Lab Routine penitentiary use of drug Expected: 07/06/2019, Expires: 07/05/2020 documented as of this encounter Visit Diagnoses Diagnosis long term acute care registered nurse use of drug- Primary Encounter for long-term (current) use of other medications documented in this encounter Care Teams Block Operator Relationship Specialty Start Date End Date Milton Hummel PCP - General Internal Medicine 07/06/19 08/04/19 Frances Sung DO PCP - General Internal Medicine 08/05/19 03/05/21 Rosalva Stephen MD [address] [place] [address] [id number] PCP - General Internal Medicine 03/06/21 03/11/21 Frances Sung DO PCP - General Internal Medicine 03/12/21 03/31/21 Rosalva Stephen MD [address] [place] [address] [id number] PCP - General Internal Medicine 04/01/21 documented as of this encounter
--- OUTSIDE RECORDS SUMMARY | 2025-08-30 14:17 | XMS_ITS | Encounter Summary ---
Author Organization [facility] Address [address] [place] [address] Care Team Providers Care Glass Ribbon Machine Operator Assistant Name Role Phone Milton Hummel Primary Care Provider Unav ailable Anup Sungla DO Primary Care Pro vider Unavailable Rosalva Stephen MD Primary Care Provider [phone] Marvin Sungabela DO Primary Care Pro vider Unavailable Rosalva Stephen MD Primary Care Provider [phone] Reason for Visit * Reason Onset Date Comments CSC Pill Count 07/06/2019 Encounter Details Date Type Department Care Team Description 07/06/2019 Telephone Physiatry - [address] [address] Na Reardon MD [address] [place] [address] Dr [facility] [place] [id number] CSC Pill Count Social History Tobacco Use Types Packs/Day Years [...] Telephone Encounter - Susan Nielson M.A. - 07/06/2019 10:00 AM EDT Last RX for Oxycodone-Acetominophen filled on 06/24/2019 Quantity 84 Si tablet every 8 hours prn for pain for up to 28 days Expected remaining tablets: 47 Actual Pill Count number: 47 Provider notified of result: YES Appearance of medication tablet verified in Epocrates/PDR or patients pharmacy: Pill count performed by Susan Nielson M.A.. Witnessed by: Jacque Rodriguez MA Pill was round shaped tablet With R P on front and 5 325 on back- Patients pills all matched description on bottle Electronically signed by: Susan Nielson M.A. 07/06/2019 10:00 AM documented in this encounter Plan of Treatment Not on file documented as of this encounter Visit Diagnoses Not on filedocumented in this encounter Care Teams Glass Ribbon Machine Operator Assistant Relationship Specialty Start Date End Date Milton Hummel PCP - General Internal Medicine 07/06/19 08/04/19 Frances Sung DO PCP - General Internal Medicine 08/05/19 03/05/21 Rosalva Stephen MD [address] [place] [id number] PCP - General Internal Medicine 03/06/21 03/11/21 Frances Sung DO PCP - General Internal Medicine 03/12/21 03/31/21 Rosalva Stephen MD [address] [place] [address] [phone] PCP - General Internal Medicine 04/01/21 documented as of this encounter
--- OUTSIDE RECORDS SUMMARY | 2025-08-30 14:18 | XMS_ITS | Encounter Summary ---
Author Organization [facility] Address [address] [place] [address] Care Team Providers Care Sap Enterprise Portal Consultant Name Role Phone Sharla Gaytan, Frances DO Primary Care Pro vider Unavailable Milton Hummel Primary Care Provider Unav ailable Rj Lino MD Primary Care Provider Unava ilable Milton Hummel Primary Care Provider Unav ailable Sharla Colpriyankacco, Frances DO Primary Care Pro vider Unavailable Rosalva Stephen MD Primary Care Provider [phone] Krakojob Coltwylao, Frances DO Primary Care Pro vider Unavailable Rosalva Stephen MD Primary Care Provider [phone] Encounter Details Date Type Department Care Team Description 11/02/2018 Refill Physiatry - [address] [address] Na Reardon MD [address] [place] [address] Dr [facility] [place] [id number] Social History Tobacco Use Types Packs/Day Years [...] Telephone Encounter - Na Reardon MD - 11/04/2018 10:25 AM EST Refilled already, see other note * Telephone Encounter - Susan Nielson M.A. - 11/03/2018 10:16 AM EST Contracted 09/30/19 ov Last ov 10/07/18 Cancelled 11/04/18, 11/11/18,11/18/18 Appointment booked for 12/09/18 * Telephone Encounter - Susan Nielson M.A. - 11/03/2018 10:10 AM ESTFrom: Deb Malcolm To: Na Reardon MD Sent: 11/02/2018 5:52 PM EST Subject: Medication Renewal Request Original authorizing provider: MD Deb Gomes would like a refill of the following medications: oxycodone-acetaminophen (PERCOCET) 5-325 MG per tablet [Na Reardon MD] Preferred pharmacy: [facility] [address] [place] [address] AT [facility] Comment: documented in this encounter Plan of Treatment Not on file documented as of this encounter Visit Diagnoses Diagnosis Chronic left shoulder pain Pain in joint, shoulder region History of cervical spinal surgery Personal history of surgery to other organs Chronic pain of right knee documented in this encounter Care Teams Sap Enterprise Portal Consultant Relationship Specialty Start Date End Date Frances Sung DO PCP - General Internal Medicine 07/12/18 02/24/19 Milton Hummel PCP - General Internal Medicine 02/25/19 06/26/19 Rj Lino MD PCP - General Internal Medicine 06/27/19 07/05/19 Milton Hummel PCP - General Internal Medicine 07/06/19 08/04/19 Frances Sung DO PCP - General Internal Medicine 08/05/19 03/05/21 Rosalva Stephen MD [address] [place] [id number] PCP - General Internal Medicine 03/06/21 03/11/21 Frances Sung DO PCP - General Internal Medicine 03/12/21 03/31/21 Rosalva Stephen MD [address] [place] [address] [id number] PCP - General Internal Medicine 04/01/21 documented as of this encounter
--- OUTSIDE RECORDS SUMMARY | 2025-08-30 14:18 | XMS_ITS | Encounter Summary ---
Author Organization [facility] Address [address] [place] [address] Care Team Providers Care Housekeeper Child Care Name Role Phone Frances Sung DO Primary Care Pro vider Unavailable Rosalva Stephen MD Primary Care Provider [phone] Frances Sung DO Primary Care Pro vider Unavailable Rosalva Stephen MD Primary Care Provider [phone] Reason for Referral * EXTERNAL (Routine) - Authorized/Booked Specialty Diagnoses / Procedures Referred By Hector biggs Referred To Contact DRUG COUNSELOR / Genetics Diagnoses EDS (Juan-Danlos syndrome) Procedures REFERRAL TO ADULT GENETICS Frances Sung DO [address] [place] [address] External Genetics Referral ID Status Reason Start Date Expiration Date V isits Requested Visits Authorized SEE NOTE Authorized/B ooked 10/02/2020 01/16/2021 1 1 Reason for Visit * Reason Onset Date Comments Vp Treasurer Feedback 09/25/2020 Dr. Edison Hughes y Encounter Details Date Type Department Care Team Description 09/25/2020 Telephone Adult Medicine [address] [address] Frances Sung DO Vp Treasurer Feedback (Dr. Edison Watson) Social History Tobacco Use Types Packs/Day Years [...] or suspected to have Coronavirus / COVID-19? Unable to assess 09/27/2020 2:37 PM EST documented as of this encounter Miscellaneous Notes * Telephone Encounter - Anika Cowan - 09/25/2020 1:52 PM EST Please review this patients new referral request. The referral has been pended. Please complete thefollowing: If approved> sign order If denied>please give instructions and route to your practice nursing pool. Practice nurse should inform referrals and the patient if denied. (received by My Chart request) documented in this encounter Plan of Treatment Not on file documented as of this encounter Visit Diagnoses Diagnosis EDS (Juan-Danlos syndrome)- Primary Juan-Danlos syndrome documented in this encounter Care Teams Housekeeper Child Care Relationship Specialty Start Date End Date Frances Sung DO PCP - General Internal Medicine 08/05/19 03/05/21 Rosalva Stephen MD [address] [place] [id number] PCP - General Internal Medicine 03/06/21 03/11/21 Frances Sung DO PCP - General Internal Medicine 03/12/21 03/31/21 Rosalva Stephen MD [address] [place] [id number] PCP - General Internal Medicine 04/01/21 documented as of this encounter
--- OUTSIDE RECORDS SUMMARY | 2025-08-30 14:18 | XMS_ITS | Encounter Summary ---
Author Organization [facility] Address [address] [place] [address] Care Team Providers Care Rn Procedures Name Role Phone Frances Sung DO Primary Care Pro vider Unavailable Rosalva Stephen MD Primary Care Provider [phone] Frances Sung DO Primary Care Pro vider Unavailable Rosalva Stephen MD Primary Care Provider [phone] Encounter Details Date Type Department Care Team Description 10/17/2019 [facility] Medical Records [address] [place] [id number] Abstract, Provider Social History Tobacco Use Types [...] on filedocumented in this encounter Care Teams Rn Procedures Relationship Specialty Start Date End Date Frances Sung DO PCP - General Internal Medicine 08/05/19 03/05/21 Rosalva Stephen MD [address] [place] [address] PCP - General Internal Medicine 03/06/21 03/11/21 Frances Sung DO PCP - General Internal Medicine 03/12/21 03/31/21 Rosalva Stephen MD [address] [place] [address] PCP - General Internal Medicine 04/01/21 documented as of this encounter
--- OUTSIDE RECORDS SUMMARY | 2025-08-30 14:18 | XMS_ITS | Encounter Summary ---
Author Organization [facility] Address [address] [place] [address] Care Team Providers Care Supervisor Adult Education Name Role Phone Frances Sung DO Primary Care Pro vider Unavailable Rosalva Stephen MD Primary Care Provider [phone] Frances Sung DO Primary Care Pro vider Unavailable Rosalva Stephen MD Primary Care Provider [phone] Encounter Details Date Type Department Care Team Description 10/12/2019 Refill OBGYN - [facility] [address] [place] [address] Jeannine Ruelas, [facility] [address] [place] [address] Social History Tobacco Use Types Packs/Day Years [...] encounter Miscellaneous Notes * Telephone Encounter - Thalia Stapleton C.M.A. - 10/13/2019 8:50 AM EST Please consider refill to get pt to scheduled appointment. DL documented in this encounter Plan of Treatment Not on file documented as of this encounter Visit Diagnoses Not on filedocumented in this encounter Care Teams Supervisor Adult Education Relationship Specialty Start Date End Date Frances Sung DO PCP - General Internal Medicine 08/05/19 03/05/21 Rosalva Stephen MD [address] [place] [address] [id number] PCP - General Internal Medicine 03/06/21 03/11/21 Frances Sung DO PCP - General Internal Medicine 03/12/21 03/31/21 Rosalva Stephen MD [address] [place] [address] [id number] PCP - General Internal Medicine 04/01/21 documented as of this encounter
--- OUTSIDE RECORDS SUMMARY | 2025-08-30 14:18 | XMS_ITS | Encounter Summary ---
Author Organization [facility] Address [address] [place] [address] Care Team Providers Care Cloth Weaver Name Role Phone Frances Sung DO Primary Care Pro vider Unavailable Milton Hummel Primary Care Provider Unav ailable Rj Lino MD Primary Care Provider Unava ilable Milton Hummel Primary Care Provider Unav ailable Frances Sung DO Primary Care Pro vider Unavailable Rosalva Stephen MD Primary Care Provider [phone] Frances Sung DO Primary Care Pro vider Unavailable Rosalva Stephen MD Primary Care Provider [phone] Encounter Details Date Type Department Care Team Description 09/14/2018 [facility] Medical Records [address] [place] [id number] Abstract, Provider Social History Tobacco Use Types [...] on filedocumented in this encounter Care Teams Cloth Weaver Relationship Specialty Start Date End Date Frances Sung DO PCP - General Internal Medicine 07/12/18 02/24/19 Milton Hummel PCP - General Internal Medicine 02/25/19 06/26/19 Rj Lino MD PCP - General Internal Medicine 06/27/19 07/05/19 Milton Hummel PCP - General Internal Medicine 07/06/19 08/04/19 Frances Sung DO PCP - General Internal Medicine 08/05/19 03/05/21 Rosalva Stephen MD [address] [place] [address] [id number] PCP - General Internal Medicine 03/06/21 03/11/21 Frances Sung DO PCP - General Internal Medicine 03/12/21 03/31/21 Rosalva Stepehn MD [address] [place] [address] [id number] PCP - General Internal Medicine 04/01/21 documented as of this encounter
--- OUTSIDE RECORDS SUMMARY | 2025-08-30 14:18 | XMS_ITS | Encounter Summary ---
Author Organization [facility] Address [address] [place] [address] Care Team Providers Care Professor Of Spanish Name Role Phone Frances Sung DO Primary Care Pro vider Unavailable Rosalva Stephen MD Primary Care Provider [phone] Frances Sung DO Primary Care Pro vider Unavailable Rosalva Stephen MD Primary Care Provider [phone] Encounter Details Date Type Department Care Team Description 08/22/2019 [facility] Medical Records [address] [place] [id number] Abstract, Provider Social History Tobacco Use Types [...] on filedocumented in this encounter Care Teams Professor Of Spanish Relationship Specialty Start Date End Date Frances Sung DO PCP - General Internal Medicine 08/05/19 03/05/21 Rosalva Stephen MD [address] [place] [phone] PCP - General Internal Medicine 03/06/21 03/11/21 Frances Sung DO PCP - General Internal Medicine 03/12/21 03/31/21 Rosalva Stephen MD [address] [place] [phone] PCP - General Internal Medicine 04/01/21 documented as of this encounter
--- OUTSIDE RECORDS SUMMARY | 2025-08-30 14:18 | XMS_ITS | Encounter Summary ---
Author Organization [facility] Address [address] [place] [address] Care Team Providers Care Rec Therapist Name Role Phone Frances Sung DO Primary Care Pro vider Unavailable Rosalva Stephen MD Primary Care Provider [phone] Frances Sung DO Primary Care Pro vider Unavailable Rosalva Stephen MD Primary Care Provider [phone] Encounter Details Date Type Department Care Team Description 09/24/2020 Pt. Non Urgent Medical Question Rheumatology - [address] [address] Loyd Langston PA Social History Tobacco Use [...] as of this encounter Progress Notes * Ana Briones L.P.N. - 09/25/2020 9:12 AM ESTFrom: Deb Malcolm To: Loyd Langston PA-C Sent: 09/24/2020 7:42 PM EST Subject: Zanaflex I received the renewal request for Zanaflex but it's only a 10 day supply and my insurance charges if it's 2 prescriptions for the same medication in the same month. Would you please be able to prescribe a 30 day prescription? With the pulmonary embolism and the 04/05 hip pain (until they find a hipsurgeon that works with EDS patients), the Zanaflex has been very helpful since I'm not allowed to take any ibuprofen or NSAIDs. documented in this encounter Plan of Treatment Not on file documented as of this encounter Visit Diagnoses Not on filedocumented in this encounter Care Teams Rec Therapist Relationship Specialty Start Date End Date Frances Sung DO PCP - General Internal Medicine 08/05/19 03/05/21 Rosalva Stephen MD [address] [place] [address] [phone] PCP - General Internal Medicine 03/06/21 03/11/21 Frances Sung DO PCP - General Internal Medicine 03/12/21 03/31/21 Rosalva Stephen MD [address] [place] [address] [id number] PCP - General Internal Medicine 04/01/21 documented as of this encounter
--- OUTSIDE RECORDS SUMMARY | 2025-08-30 14:18 | XMS_ITS | Encounter Summary ---
Author Organization [facility] Address [address] [place] [address] Care Team Providers Care Carpenter Repair Name Role Phone Marvin Sungabela DO Primary Care Pro vider Unavailable Milton Hummel Primary Care Provider Unav ailRj Pyle MD Primary Care Provider Unava ilMilton Alicea Primary Care Provider Unav ailable Sharla Westo, Frances DO Primary Care Pro vider Unavailable Rosalva Stephen MD Primary Care Provider [phone] Sharla Westo, Frances DO Primary Care Pro vider Unavailable Rosalva Stephen MD Primary Care Provider [phone] Encounter Details Date Type Department Care Team Description 10/06/2018 Refill Physiatry - [address] [address] Na Reardon MD [address] [place] [address] [place], [place] [id number] Social History Tobacco Use Types Packs/Day Years [...] knee documented in this encounter Care Teams Carpenter Repair Relationship Specialty Start Date End Date Frances Sung DO PCP - General Internal Medicine 07/12/18 02/24/19 Milton Hummel PCP - General Internal Medicine 02/25/19 06/26/19 Rj Lino MD PCP - General Internal Medicine 06/27/19 07/05/19 Milton Hummel PCP - General Internal Medicine 07/06/19 08/04/19 Frances Sung DO PCP - General Internal Medicine 08/05/19 03/05/21 Rosalva Stephen MD [address] [place] [address] PCP - General Internal Medicine 03/06/21 03/11/21 Frances Sung DO PCP - General Internal Medicine 03/12/21 03/31/21 Rosalva Stephen MD [address] [place] [address] PCP - General Internal Medicine 04/01/21 documented as of this encounter
--- OUTSIDE RECORDS SUMMARY | 2025-08-30 14:18 | XMS_ITS | Encounter Summary ---
Author Organization [facility] Address [address] [place] [address] Care Team Providers Care Electron Microscopist Name Role Phone Sharla Gaytan, Frances DO Primary Care Pro vider Unavailable Milton Hummel Primary Care Provider Unav ailable Rj Lino MD Primary Care Provider Unava ilable Milton Hummel Primary Care Provider Unav ailable Sharla Issacco, Frances DO Primary Care Pro vider Unavailable Rosalva Stephen MD Primary Care Provider [phone] Krakojob Coltwylao, Frances DO Primary Care Pro vider Unavailable Rosalva Stephen MD Primary Care Provider [phone] Encounter Details Date Type Department Care Team Description 11/04/2018 Refill Physiatry - [address] [address] Na Reardon MD [address] [place] [address] [place], [place] [id number] Social History Tobacco Use Types Packs/Day Years [...] Telephone Encounter - Susan Nielson M.A. - 11/05/2018 12:44 PM EST Patient came in today and signed letter dated 11/04/18 and new Controlled Substance management plan.Patient picked up script. Signed documents sent to scaPNP sent to scan * Telephone Encounter - Susan Nielson M.A. - 11/05/2018 11:12 AM EST FYI: I confirmed with [facility] and they did not fill the script of 10/08/18 Pharmacist confirmed that it was filled at [facility] in [facility]. * Telephone Encounter - Na Reardon MD - 11/04/2018 11:43 AM EST FYI to Dr. Magdaleno * Telephone Encounter - Susan Nielson M.A. - 11/04/2018 10:45 AM EST Patient is aware of Message from Dr Reardon. Message was read to her Word for word. Patient states she would like to use [facility] [address]. Patient states she has been staying on weekends with her mom in [facility] and questioned if thiswould cause any violation. I told patient that as long as she followed her contract, that this is not a violation. She is aware that if we call for a random drug screen or pill count then she will need to comply with her contract. Patient is aware that when she comes to pickle pumper the script that she will need to sign a Controlled Substance Management plan. To Dr Avila for FYI * Telephone Encounter - Na Reardon MD - 11/04/2018 10:24 AM EST Filling a prescription in different pharmacies not written on our contract is technically a violation, especially if out of state and we were not informed before hand. I will fill this prescription for now with the following conditions. Not following these conditionswill be a violation of her contract. 1. She should inform us of any travel outside out of town and always to keep travel documents with her in case we will ask for it. This is especially true because we can call her random pill count or drug test anytime. 2. She should choose one pharmacy for the oxycodone and use that one pharmacy only. She has to let us know of her choice and will update it on her contract. 3. Every time she has to go to ER, urgent care or see any other non [facility] physician, she cannot receive any pain medications prescriptions. If she is given a pain prescription, she has to inform us before she fills them. Again any violation of the above moving forward will violate her contract. Please have her choose the pharmacy when you call her because I want to update the contract which she needs to sign when she picks up this prescription. Thanks. * Telephone Encounter - uSsan Nielson M.A. - 11/04/2018 9:32 AM EST I spoke with Liliam at [facility]. She states her computer system reports patients lastrefill on 10/08/19 at an outside location. She said they only have phone number of pharmacy. I called and Yael at this # states that a script was filled on 10/08/19 and They are Located on [address] [place] [address] in [facility]. [facility] does not include [place] * Telephone Encounter - Na Reardon MD - 11/04/2018 9:21 AM EST The last prescription 10/07 was handed personally to patient by Deepthi. Patient did not fill that prescription per Masspat? Can you please call ask pharmacy if she filled the prescription? thanks * Telephone Encounter - Alyssa Lyon L.P.N. - 11/04/2018 7:31 AM EST Contracted Last refill 10/07/18 Last visit 09/30/18 Next visit 12/09/18 Last masspat 10/11/18 masspat printed and to Dr Avila to review Lab Results Component Value Date URINEOXYCOD POSITIVE 10/01/2018 URBENZO NEGATIVE 10/01/2018 URAMPHETAMIN POSITIVE 10/01/2018 URMARIJUANA NEGATIVE 10/01/2018 UROPIATES NEGATIVE 10/01/2018 URBARBITUATE NEGATIVE 10/01/2018 URCOCAINE NEGATIVE 10/01/2018 HYDROCODONE Negative 02/19/2017 * Telephone Encounter - Alyssa Lyon L.P.NWild - 11/04/2018 7:26 AM ESTFrom: Deb Malcolm To: Na Reardon MD Sent: 11/04/2018 6:26 AM EST Subject: Medication Renewal Request Original authorizing provider: MD Deb Gomes would like a refill of the following medications: oxycodone-acetaminophen (PERCOCET) 5-325 MG per tablet [Na Reardon MD] Preferred pharmacy: [id number] AT [facility] Comment: pickup documented in this encounter Plan of Treatment Not on file documented as of this encounter Visit Diagnoses Diagnosis Chronic left shoulder pain Pain in joint, shoulder region History of cervical spinal surgery Personal history of surgery to other organs Chronic pain of right knee documented in this encounter Care Teams Electron Microscopist Relationship Specialty Start Date End Date Frances Sung DO PCP - General Internal Medicine 07/12/18 02/24/19 Milton Hummel PCP - General Internal Medicine 02/25/19 06/26/19 Rj Lino MD PCP - General Internal Medicine 06/27/19 07/05/19 Milton Hummel PCP - General Internal Medicine 07/06/19 08/04/19 Frances Sung DO PCP - General Internal Medicine 08/05/19 03/05/21 Rosalva Stephen MD [address] [place] [address] PCP - General Internal Medicine 03/06/21 03/11/21 Frances Sung DO PCP - General Internal Medicine 03/12/21 03/31/21 Rosalva Stephen MD [address] [place] [address] PCP - General Internal Medicine 04/01/21 documented as of this encounter
--- OUTSIDE RECORDS SUMMARY | 2025-08-30 14:18 | XMS_ITS | Encounter Summary ---
Author Organization [facility] Address [address] [place] [address] Care Team Providers Care Wood Ski Maker Name Role Phone Frances Sung DO Primary Care Pro vider Unavailable Rosalva Stephen MD Primary Care Provider [phone] Frances Sung DO Primary Care Pro vider Unavailable Rosalva Stephen MD Primary Care Provider [phone] Encounter Details Date Type Department Care Team Description 09/24/2020 Pt. Non Urgent Medic al Question Adult Medicine [address] [address] Frances Sung DO Social History Tobacco Use [...] encounter Miscellaneous Notes * Telephone Encounter - Emma Hendricks - 09/25/2020 4:10 PM ESTFrom: Deb Malcolm To: Frances Gaytan DO Sent: 09/24/2020 7:39 PM EST Subject: Referral to EDS specialist please Veronika Magdaleno, I'm asking for a referral to please see: Edison Pisano MD Clinical Genetics, [facility] [address] [place] [phone] [email or web address] [phone] [email or web address] Dr. Edison Pisano specializes in the evaluation, diagnosis, and management of genetic connective tissue disorders including EDS. He evaluates patients of all ages. He is also an expert in genetic testing variant interpretation. A summary of the evaluation along with management recommendations are provided to the referring provider with a copy to each patient. When contacting the clinic, always ask to be placed on the cancellation list. All major insurance is accepted. He might also be able to help me find a hip surgeon that is familiar with hEDS (the [place] hip doctor Fernie stated that she would like to send me to a hip surgeon that works with EDS patients). documented in this encounter Plan of Treatment Not on file documented as of this encounter Visit Diagnoses Not on filedocumented in this encounter Care Teams Wood Ski Maker Relationship Specialty Start Date End Date Frances Sung DO PCP - General Internal Medicine 08/05/19 03/05/21 Rosalva Stephen MD [address] [place] [address] PCP - General Internal Medicine 03/06/21 03/11/21 Frances Sung DO PCP - General Internal Medicine 03/12/21 03/31/21 Rosalva Stephen MD [address] [place] [address] [id number] PCP - General Internal Medicine 04/01/21 documented as of this encounter
--- OUTSIDE RECORDS SUMMARY | 2025-08-30 14:18 | XMS_ITS | Encounter Summary ---
Author Organization [facility] Address [address] [place] [address] Care Team Providers Care Box Blank Machine Feeder Name Role Phone Frances Sung DO Primary Care Pro vider Unavailable Milton Hummel Primary Care Provider Unav ailable Rj Lino MD Primary Care Provider Unava ilable Milton Hummel Primary Care Provider Unav ailable Frances Sung DO Primary Care Pro vider Unavailable Rosalva Stephen MD Primary Care Provider [phone] Frances Sung DO Primary Care Pro vider Unavailable Rosalva Stephen MD Primary Care Provider [phone] Encounter Details Date Type Department Care Team Description 09/05/2018 Pt. Non Urgent Medic al Question Physiatry - [address] [phone] Alejandro William PA-C Social History Tobacco Use [...] on filedocumented in this encounter Care Teams Box Blank Machine Feeder Relationship Specialty Start Date End Date Frances Sung DO PCP - General Internal Medicine 07/12/18 02/24/19 Milton Hummel PCP - General Internal Medicine 02/25/19 06/26/19 Rj Lino MD PCP - General Internal Medicine 06/27/19 07/05/19 Milton Hummel PCP - General Internal Medicine 07/06/19 08/04/19 Frances Sung DO PCP - General Internal Medicine 08/05/19 03/05/21 Rosalva Stephen MD [address] [place] [address] PCP - General Internal Medicine 03/06/21 03/11/21 Frances Sugn, PCP - General Internal Medicine 03/12/21 03/31/21 Rosalva Stephen MD [address] [place] [address] PCP - General Internal Medicine 04/01/21 documented as of this encounter
--- OUTSIDE RECORDS SUMMARY | 2025-08-30 14:19 | XMS_ITS | Encounter Summary ---
Author Organization [facility] Address [address] [place] [address] Care Team Providers Care Wax Coating Machine Tender Name Role Phone Frances Sung DO Primary Care Pro vider Unavailable Rosalva Stephen MD Primary Care Provider [phone] Frances Sung DO Primary Care Pro vider Unavailable Rosalva Stephen MD Primary Care Provider [phone] Encounter Details Date Type Department Care Team Description 11/10/2019 Refill Physiatry - [address] [address] Na Reardon MD [address] [place] [address] [place], [place] [phone] Social History Tobacco Use Types Packs/Day Years [...] Telephone Encounter - Elizabeth Crowe M.A. - 11/10/2019 9:53 AM EST Rx placed in physiatry ppu * Telephone Encounter - Na Reardon MD - 11/10/2019 9:50 AM EST MassPAT report reviewed today for Deb Malcolm * Telephone Encounter - Elizabeth Crowe M.A. - 11/10/2019 8:43 AM EST Last ov 08/25/19 Next ov 11/25/2019 Last refill 10/13/2019 Lab Results Component Value Date URBENZO NONE DETECTED 07/06/2019 UROPIATES POSITIVE 07/06/2019 URBARBITUATE NONE DETECTED 07/06/2019 PAINAMPHETAM POSITIVE 07/06/2019 URAMPHETAMIN POSITIVE 10/01/2018 PAINCOCAINE NONE DETECTED 07/06/2019 URCOCAINE NEGATIVE 10/01/2018 PAINCANNABIN POSITIVE 07/06/2019 URMARIJUANA NEGATIVE 10/01/2018 MassPAT contracted documented in this encounter Plan of Treatment Not on file documented as of this encounter Visit Diagnoses Diagnosis Chronic left shoulder pain Pain in joint, shoulder region History of cervical spinal surgery Personal history of surgery to other organs Chronic pain of right knee documented in this encounter Care Teams Wax Coating Machine Tender Relationship Specialty Start Date End Date Frances Sung DO PCP - General Internal Medicine 08/05/19 03/05/21 Rosalva Stephen MD [address] [place] [address] PCP - General Internal Medicine 03/06/21 03/11/21 Frances Sung DO PCP - General Internal Medicine 03/12/21 03/31/21 Rosalva Stephen MD [address] [place] [phone] PCP - General Internal Medicine 04/01/21 documented as of this encounter
--- OUTSIDE RECORDS SUMMARY | 2025-08-30 14:19 | XMS_ITS | Encounter Summary ---
Author Organization [facility] Address [address] [place] [address] Care Team Providers Care Concert Pianist Name Role Phone Rosalva Stephen MD Primary Care Provider Encounter Details Date Type Department Care Team Description 01/11/2022 Home Health Certification Medical Records [address] [place] [address] [facility] [address] [facility] [address] [place] [address] Social History Tobacco Use Types Packs/Day [...] In the last 10 days, have brittny u been in contact with someone who was confirmed or suspected to have Coronavirus/COVID-19? No / Unsure 01/14/2022 12:36 PM EDT documented as of this encounter Plan of Treatment Not on file documented as of this encounter Visit Diagnoses Not on filedocumented in this encounter Care Teams Concert Pianist Relationship Specialty Start Date End Date Rosalva Stephen MD [address] [place] [address] PCP - General Internal Medicine 04/01/21 documented as of this encounter
--- OUTSIDE RECORDS SUMMARY | 2025-08-30 14:19 | XMS_ITS | Encounter Summary ---
Author Organization [facility] Address [address] [place] [address] Care Team Providers Care Lead Java Developer Architect Name Role Phone Hector Morris MD Primary Care Provider Unavail able [facility], [facility] Primary Care Provider Unavailabl e [place] Colasacco, Frances DO Primary Care Pro vider Unavailable Doug Cosby MD Primary Care Provider Unavail able [place] Colasacco, Frances DO Primary Care Pro vider Unavailable Milton Hummel Primary Care Provider Unav ailable Rj Lino MD Primary Care Provider Unava ilable Milton Hummel Primary Care Provider Unav ailable [place] Colasacco, Frances DO Primary Care Pro vider Unavailable Rosalva Stephen MD Primary Care Provider [phone] [place] Colasacco, Frances DO Primary Care Pro vider Unavailable Rosalva Stephen MD Primary Care Provider [phone] Encounter Details Date Type Department Care Team Description 02/17/2014 Pt. Non Urgent Medic al Question Medicine/Pediatrics - [address] [address] Hector Morris MD Social History Tobacco Use Types Packs/Day [...] as of this encounter Progress Notes * Andie Meier Rn - 02/17/2014 8:59 AM EDTFrom: DEB MALCOLM To: Hector Morris MD Sent: ThuFebruary 17, 2014 6:04 AM Subject: copy of echo report I would like a copy of the echo report by the pre parole counseling aide. How can I go about obtaining that copy? documented in this encounter Plan of Treatment Not on file documented as of this encounter Visit Diagnoses Not on filedocumented in this encounter Care Teams Lead Java Developer Architect Relationship Specialty Start Date End Date Hector Morris MD PCP - General Internal Medicine 10/18/13 01/31/16 [facility] PCP - General Internal Medicine 02/01/16 02/11/16 Frances Sung, PCP - General Internal Medicine 02/12/16 04/28/18 Doug Cosby MD PCP - General Internal Medicine 04/29/18 07/11/18 Frances Sung, PCP - General Internal Medicine 07/12/18 02/24/19 Milton Hummel PCP - General Internal Medicine 02/25/19 06/26/19 Rj Lino MD PCP - General Internal Medicine 06/27/19 07/05/19 Milton Hummel PCP - General Internal Medicine 07/06/19 08/04/19 Frances Sung, PCP - General Internal Medicine 08/05/19 03/05/21 Rosalva Stephen MD [address] [place] [address] PCP - General Internal Medicine 03/06/21 03/11/21 Frances Sung, DO PCP - General Internal Medicine 03/12/21 03/31/21 Rosalva Stephen MD [address] [place] [address] PCP - General Internal Medicine 04/01/21 documented as of this encounter
--- OUTSIDE RECORDS SUMMARY | 2025-08-30 14:19 | XMS_ITS | Encounter Summary ---
Author Organization [facility] Address [address] [place] [address] Care Team Providers Care Thread Spinner Name Role Phone Rosalva Stephen MD Primary Care Provider [phone] Encounter Details Date Type Department Care Team Description 01/14/2022 Pt. Referral Request [facility] Jamey [address] [place] [phone] Md Jamey Social History Tobacco Use Types [...] on filedocumented in this encounter Care Teams Thread Spinner Relationship Specialty Start Date End Date Rosalva Stephen MD [address] [place] [address] [phone] PCP - General Internal Medicine 04/01/21 documented as of this encounter
--- OUTSIDE RECORDS SUMMARY | 2025-08-30 14:19 | XMS_ITS | Encounter Summary ---
Author Organization [facility] Address [address] [place] [address] Care Team Providers Care Poultry Boner Name Role Phone Hector Morris MD Primary Care Provider Unavail able [facility], [facility] Primary Care Provider Unavailabl e [place] Colasacco, [...] Unavailable Rosalva Stephen MD Primary Care Provider [phone] [place] Colasacco, Frances DO Primary Care Pro vider Unavailable Rosalva Stephen MD Primary Care Provider [phone] Encounter Details Date Type Department Care Team Description 12/14/2013 Orders Only Medicine/Pediatrics - [address] [address] Hector Morris MD Dizziness and giddiness (Primary Dx) Social History Tobacco Use Types [...] on file documented as of this encounter Results * CORTISOL, SERUM (12/15/2013 8:34 AM EST) CORTISOL 12.6 ug/dl 12/15/2013 1:50 PM EST [facility] Comment: CORTISOL REFERENCE RANGE 8 AM SPEC: 5.0 - 23.0 4 PM SPEC: 3.0 - 16.0 8 PM SPEC: <5.0 12/15/2013 8:34 AM EST 12/15/2013 8:35 AM EST Hector Morris MD LAB [facility] documented in this encounter Visit Diagnoses Diagnosis Dizziness and giddiness- Primary documented in this encounter Care Teams Poultry Boner Relationship Specialty Start Date End Date Hector Morris MD PCP - General Internal Medicine 10/18/13 01/31/16 [facility] PCP - General Internal Medicine 02/01/16 02/11/16 [...] Internal Medicine 08/05/19 03/05/21 Rosalva Stephen MD [address] [place] [address] PCP - General Internal Medicine 03/06/21 03/11/21 Frances Sung, DO PCP - General Internal Medicine 03/12/21 03/31/21 Rosalva Stephen MD [address] [place] [id number] PCP - General Internal Medicine 04/01/21 documented as of this encounter
--- OUTSIDE RECORDS SUMMARY | 2025-08-30 14:19 | XMS_ITS | Encounter Summary ---
Author Organization [facility] Address [address] [place] [address] Care Team Providers Care Recruiting Internship Name Role Phone Frances Sung DO Primary Care Pro vider Unavailable Rosalva Stephen MD Primary Care Provider [phone] Frances Sung DO Primary Care Pro vider Unavailable Rosalva Stephen MD Primary Care Provider [phone] Encounter Details Date Type Department Care Team Description 11/16/2019 Old Medical Records Medical Records [address] [place] [address] Karoline Sultana Social History Tobacco Use Types Packs/Day Years [...] on filedocumented in this encounter Care Teams Recruiting Internship Relationship Specialty Start Date End Date Frances Sung DO PCP - General Internal Medicine 08/05/19 03/05/21 Rosalva Stephen MD [address] [place] [address] PCP - General Internal Medicine 03/06/21 03/11/21 Frances Sung DO PCP - General Internal Medicine 03/12/21 03/31/21 Rosalva Stephen MD [address] [place] [address] PCP - General Internal Medicine 04/01/21 documented as of this encounter
--- OUTSIDE RECORDS SUMMARY | 2025-08-30 14:19 | XMS_ITS | Encounter Summary ---
Author Organization [facility] Address [address] [place] [address] Care Team Providers Care Spray Machine Tender Name Role Phone Frances Sung DO Primary Care Pro vider Unavailable Rosalva Stephen MD Primary Care Provider Frances Sung DO Primary Care Pro vider Unavailable Rosalva Stephen MD Primary Care Provider [phone] Encounter Details Date Type Department Care Team Description 10/12/2019 Refill Physiatry - [address] [address] Na Reardon MD [address] [place] [address] [place], [place] [phone] Social History Tobacco Use Types Packs/Day Years [...] Telephone Encounter - Elizabeth Crowe M.A. - 10/13/2019 9:17 AM EST Rx placed in Physiatry ppu * Telephone Encounter - Na Reardon MD - 10/13/2019 8:44 AM EST MassPAT report reviewed today for Deb Malcolm * Telephone Encounter - Alyssa Lyon L.P.N. - 10/13/2019 8:24 AM EST Contracted Last refill 09/15/19 Last visit 08/25/19 Next visit 11/25/19 Last masspat 08/22/19 masspat printed and to Dr Avila to review Lab Results Component Value Date URBENZO NONE DETECTED 07/06/2019 UROPIATES POSITIVE 07/06/2019 URBARBITUATE NONE DETECTED 07/06/2019 PAINAMPHETAM POSITIVE 07/06/2019 URAMPHETAMIN POSITIVE 10/01/2018 PAINCOCAINE NONE DETECTED 07/06/2019 URCOCAINE NEGATIVE 10/01/2018 PAINCANNABIN POSITIVE 07/06/2019 URMARIJUANA NEGATIVE 10/01/2018 documented in this encounter Plan of Treatment Not on file documented as of this encounter Visit Diagnoses Diagnosis Chronic left shoulder pain Pain in joint, shoulder region History of cervical spinal surgery Personal history of surgery to other organs Chronic pain of right knee documented in this encounter Care Teams Spray Machine Tender Relationship Specialty Start Date End Date Frances Sung DO PCP - General Internal Medicine 08/05/19 03/05/21 Rosalva Stephen MD [address] [place] [address] PCP - General Internal Medicine 03/06/21 03/11/21 Frances Sung DO PCP - General Internal Medicine 03/12/21 03/31/21 Rosalva Stephen MD [address] [place] [address] PCP - General Internal Medicine 04/01/21 documented as of this encounter
--- OUTSIDE RECORDS SUMMARY | 2025-08-30 14:19 | XMS_ITS | Encounter Summary ---
Author Organization [facility] Address [address] [place] [address] Care Team Providers Care Nematologist Name Role Phone Frances Sung DO Primary Care Pro vider Unavailable Milton Hummel Primary Care Provider Unav ailable Rj Lino MD Primary Care Provider Unava ilable Milton Hummel Primary Care Provider Unav ailable Frances Sung DO Primary Care Pro vider Unavailable Rosalva Stephen MD Primary Care Provider [phone] Frances Sung DO Primary Care Pro vider Unavailable Rosalva Stephen MD Primary Care Provider [phone] Encounter Details Date Type Department Care Team Description 11/05/2018 Pt. Referral Request [address] [phone] Md Natasha Social History Tobacco Use Types Packs/Day Years [...] on filedocumented in this encounter Care Teams Nematologist Relationship Specialty Start Date End Date Frances Sung DO PCP - General Internal Medicine 07/12/18 02/24/19 Milton Hummel PCP - General Internal Medicine 02/25/19 06/26/19 Rj Lino MD PCP - General Internal Medicine 06/27/19 07/05/19 Mliton Hummel PCP - General Internal Medicine 07/06/19 08/04/19 Frances Sung DO PCP - General Internal Medicine 08/05/19 03/05/21 Rosalva Stephen MD [address] [place] [address]19 PCP - General Internal Medicine 03/06/21 03/11/21 Frances Sung, PCP - General Internal Medicine 03/12/21 03/31/21 Rosalva Stephen MD [address] [place] [address] 94943 PCP - General Internal Medicine 04/01/21 documented as of this encounter
--- OUTSIDE RECORDS SUMMARY | 2025-08-30 14:19 | XMS_ITS | Encounter Summary ---
Author Organization [facility] Address [address] [place] [address] Care Team Providers Care Quantitative Strategy Analyst Name Role Phone Rosalva Stephen MD Primary Care Provider [phone] Encounter Details Date Type Department Care Team Description 01/15/2022 Pt. Non Urgent Medical Question Adult Medicine [address] [phone] Rosalva Stephen MD [address] [place] [address] [phone] Social History Tobacco Use Types Packs/Day Years [...] encounter Miscellaneous Notes * Telephone Encounter - Blanca Chung M.A. - 01/15/2022 10:43 AM EDTFrom: Deb Malcolm To: Jac Stephen Sent: 01/15/2022 10:32 AM EDT Subject: PT-1 vs PVTA I believe I was looking for the PT-1 van and not just the PVTA van. I need help getting to my appointments and back home. I tried to look for the form but only see that it can be submitted online by a provider. I've included the link if you don't already have it: https://www.[employer].gov/how-to/request- hhdhtdcblhjagh-xke-f-member documented in this encounter Plan of Treatment Not on file documented as of this encounter Visit Diagnoses Not on filedocumented in this encounter Care Teams Quantitative Strategy Analyst Relationship Specialty Start Date End Date Rosalva Stephen MD [address] [place] [address] PCP - General Internal Medicine 04/01/21 documented as of this encounter
--- OUTSIDE RECORDS SUMMARY | 2025-08-30 14:20 | XMS_ITS | Encounter Summary ---
Author Organization [facility] Address [address] [place] [address] Care Team Providers Care Passenger Train Braker Name Role Phone Frances Sung DO Primary Care Pro vider Unavailable Rosalva Stephen MD Primary Care Provider [phone] Frances Sung DO Primary Care Pro vider Unavailable Rosalva Stephen MD Primary Care Provider [phone] Encounter Details Date Type Department Care Team Description 10/04/2020 Hospital Medical Records [address] [place] [address] Abstract, Provider Social History Tobacco Use Types [...] on filedocumented in this encounter Care Teams Passenger Train Braker Relationship Specialty Start Date End Date Frances Sung DO PCP - General Internal Medicine 08/05/19 03/05/21 Rosalva Stephen MD [address] [place] [address] [phone] PCP - General Internal Medicine 03/06/21 03/11/21 Frances Sung DO PCP - General Internal Medicine 03/12/21 03/31/21 Rosalva Stephen MD [address] [place] [address]20 PCP - General Internal Medicine 04/01/21 documented as of this encounter
--- OUTSIDE RECORDS SUMMARY | 2025-08-30 14:20 | XMS_ITS | Encounter Summary ---
Author Organization [facility] Address [address] [place] [address] Care Team Providers Care Rubber Boots And Shoes Repairer Name Role Phone Rosalva Stephen MD Primary Care Provider [phone] Encounter Details Date Type Department Care Team Description 01/14/2022 Pt. Referral Request [facility] Jamey [address] [place] [address] [phone] Md Jamey Social History Tobacco Use Types [...] on filedocumented in this encounter Care Teams Rubber Boots And Shoes Repairer Relationship Specialty Start Date End Date Rosalva Stephen MD [address] [place] [address] [phone] PCP - General Internal Medicine 04/01/21 documented as of this encounter
--- OUTSIDE RECORDS SUMMARY | 2025-08-30 14:20 | XMS_ITS | Encounter Summary ---
Author Organization [facility] Address [address] [place] [address] Care Team Providers Care Fabric Sourcer Name Role Phone Rosalva Stephen MD Primary Care Provider [phone] Reason for Visit * Reason Onset Date Comments Provider Call Back 01/23/2022 Encounter Details Date Type Department Care Team Description 01/23/2022 Telephone [facility] [address] [place] [address] [phone] Rosalva Stephen MD [address] [place] [address] [phone] Provider Call Back Social History Tobacco Use Types Packs/Day Years [...] encounter Miscellaneous Notes * Telephone Encounter - Caity Hernandez M.A. - 01/23/2022 10:[address] Stephen documentated need for PT1 at appt 01/2022 Pt does not need telehealth appt 02/14/22 if PT 1 form is up to date. Please advise if pt 1 form is up to date so we can call pt to cancel appt 02/14 * Telephone Encounter - Rosalva Stephen MD - 01/23/2022 10:27 AM EDT What is the reason for the visit on 02/14? I documented need for PT1 at her last visit and PT1 form should be able to be completed based on last visit * Telephone Encounter - Caity Hernandez M.A. - 01/23/2022 10:24 AM EDT Pt had in person hosp fu appt 01/14/22 with pcp Pt has a Telehealth appointment scheduled 02/14/22 is this ok to have telehealth? If pt needs in person she will need to arrange for transportation (PT1) * Telephone Encounter - Helen Gutierrezirez - 01/23/2022 10:19 AM EDT Caller requesting call back from provider: Is the caller the patient? YES If caller is not the patient, what is the callers name? N/A Callers relationship to patient? N/A If person calling is not the patient themselves, is there a verbal release in FYI or permanent comments for this person: YES Reason for call back: Pt has appt 02/14/22 with Rosalva Stephen Pt wants to know this appt has to be in person or can keep it appt as tele visit. If pt needs to be in person. Send to me enter a pt-1 Caller offered to speak with the nurse for assistance: NO Response: Patient offered to speak with nurse for assistance and patient agreed. Message forwarded to nurse. documented in this encounter Plan of Treatment Not on file documented as of this encounter Visit Diagnoses Not on filedocumented in this encounter Care Teams Fabric Sourcer Relationship Specialty Start Date End Date Rosalva Stephen MD [address] [place] [address] PCP - General Internal Medicine 04/01/21 documented as of this encounter
--- OUTSIDE RECORDS SUMMARY | 2025-08-30 14:20 | XMS_ITS | Encounter Summary ---
Author Organization [facility] Address [address] [place] [address] Care Team Providers Care Band Aid Machine Operator Name Role Phone Frances Sung DO Primary Care Pro vider Unavailable Rosalva Stephen MD Primary Care Provider [phone] Frances Sung DO Primary Care Pro vider Unavailable Rosalva Stephen MD Primary Care Provider [phone] Encounter Details Date Type Department Care Team Description 10/18/2020 [facility] Medical Records [address] [place] [phone] Abstract, Provider Social History Tobacco Use Types [...] on filedocumented in this encounter Care Teams Band Aid Machine Operator Relationship Specialty Start Date End Date Frances Sung DO PCP - General Internal Medicine 08/05/19 03/05/21 Rosalva Stephen MD [address] [place] [address] 165[address] PCP - General Internal Medicine 03/06/21 03/11/21 Frances Sung DO PCP - General Internal Medicine 03/12/21 03/31/21 Rosalva Stephen MD [address] [place] [address] [phone] PCP - General Internal Medicine 04/01/21 documented as of this encounter
--- OUTSIDE RECORDS SUMMARY | 2025-08-30 14:20 | XMS_ITS | Encounter Summary ---
Author Organization [facility] Address [address] [place] [address] Care Team Providers Care Seasonal Greenery Bundler Name Role Phone Rosalva Stephen MD Primary Care Provider [phone] Encounter Details Date Type Department Care Team Description 02/14/2022 Pt. Non Urgent Medical Question Adult Medicine [address] [phone] Rosalva Stephen MD [address] [place] [address] [phone] Social History Tobacco Use Types Packs/Day Years [...] Telephone Encounter - Blanca Chung M.A. - 02/14/2022 9:42 AM EDTFrom: Deb Malcolm To: Jac Stephen Sent: 02/14/2022 9:22 AM EDT Subject: Veterinary Technician Assistant referral I haven???t heard from Dr Crowley. Is there any way to send a referral to [facility] in [place] (I believe they are the closest ones to me)? documented in this encounter Plan of Treatment Not on file documented as of this encounter Visit Diagnoses Not on filedocumented in this encounter Care Teams Seasonal Greenery Bundler Relationship Specialty Start Date End Date Rosalva Stephen MD [address] [place] [address] 16877 PCP - General Internal Medicine 04/01/21 documented as of this encounter
--- OUTSIDE RECORDS SUMMARY | 2025-08-30 14:21 | XMS_ITS | Encounter Summary ---
Author Organization [facility] Address [address] [place] [address] Care Team Providers Care Rate Clerk Name Role Phone Frances Sung DO Primary Care Pro vider Unavailable Rosalva Stephen MD Primary Care Provider [phone] Frances Sung DO Primary Care Pro vider Unavailable Rosalva Stephen MD Primary Care Provider [phone] Encounter Details Date Type Department Care Team Description 12/21/2019 Pt. Non Urgent Medical Question Physiatry - [address] [address] Na Reardon MD [address] [place] [address] Dr [place]I [place] [id number] Social History Tobacco Use Types Packs/Day Years [...] Progress Notes * Alyssa Lyon L.P.N. - 12/21/2019 10:09 AM EDTFrom: Deb Malcolm To: Na Reardon MD Sent: 12/21/2019 9:58 AM EDT Subject: Letter or Notes Hi Dr. Avila. I would like a letter or notes stating that within the past year my random drug screenings and random pill counts have been within normal limits. I need this for court (custody). Deborah. documented in this encounter Plan of Treatment Not on file documented as of this encounter Visit Diagnoses Not on filedocumented in this encounter Care Teams Rate Clerk Relationship Specialty Start Date End Date Frances Sung DO PCP - General Internal Medicine 08/05/19 03/05/21 Rosalva Stephen MD [address] [place] [address] PCP - General Internal Medicine 03/06/21 03/11/21 Frances Sung DO PCP - General Internal Medicine 03/12/21 03/31/21 Rosalva Stephen MD [address] [place] [address] 34872 PCP - General Internal Medicine 04/01/21 documented as of this encounter
--- OUTSIDE RECORDS SUMMARY | 2025-08-30 14:21 | XMS_ITS | Encounter Summary ---
Author Organization [facility] Address [address] [place] [address] Care Team Providers Care Burn Crew Member Name Role Phone Rosalva Stephen MD Primary Care Provider [phone] Reason for Visit * Reason Onset Date Comments Faxed Order 02/05/2022 [facility] [id number] Encounter Details Date Type Department Care Team Description 02/05/2022 Telephone Adult Medicine [facility] [address] [place] [address] Rosalva Stephen MD [address] [place] [address] [phone] Faxed Order ([facility] care [id number]) Social History Tobacco Use Types Packs/Day Years [...] on filedocumented in this encounter Care Teams Burn Crew Member Relationship Specialty Start Date End Date Rosalva Stephen MD [address] [place] [address] [phone] PCP - General Internal Medicine 04/01/21 documented as of this encounter
--- OUTSIDE RECORDS SUMMARY | 2025-08-30 14:21 | XMS_ITS | Encounter Summary ---
Author Organization [facility] Address [address] [place] [address] Care Team Providers Care Pairer Name Role Phone Rosalva Stephen MD Primary Care Provider [phone] Reason for Visit * Reason Onset Date Comments PT-1 01/30/2022 Encounter Details Date Type Department Care Team Description 01/30/2022 Telephone Adult Medicine [facility] [address] [place] [address] [phone] Rosalva Stephen MD [address] [place] [address] [phone] PT-1 Social History Tobacco Use Types Packs/Day Years [...] encounter Miscellaneous Notes * Telephone Encounter - Carissa Ortez M.A. - 01/30/2022 3:32 PM EDT PT1 Pending [id number]/Dr Sixto Arvizu/Sleep Medicine 2 visits x 1 year Exp 01/30/2023 * Telephone Encounter - Jeannine Glasgow - 01/30/2022 2:07 PM EDT [place]'s Medicaid Group new provider or submitter number is [id number] Verify and document patients [place] Health insurance ID # (NOT [facility] ID): [id number] Payor: [employer] FFS / Plan: [email or web address] ALLIANCE / Product Type: MEDICAID RISK Patient mailing address: [address] [place] [address] Dr Bella ROBLEDO [address] Telephone Information: Pt. demographics verified? YES If not accurate, update registration. Is this a NEW request or a RENEWAL? NEW [facility] facility[facility] Name (first & last) of treating provider? required : Dr Sixto Arvizu What is the medical reason why the patient is seeing the above provider? [facility] Address/Zip code for treating provider: [address] [place] [address] Phone # for treating provider: [phone] Is the provider in the [facility] [employer] network (do they accept [place] Health insurance)? YES What specialtly is this provider? Sleep Medicine When is the visit scheduled for? 02/10/2022 at 1:30 pm How often you will be seeing this particular provider? 2 Do you have friends or family who can transport you to this visit? NO If yes, do not complete request. Is there anything stopping you from using public transportation? If yes, explain. : YES Walker Is there a medical reason (diagnosis) why you are unable to use public transportation? If yes, explain: yes - Walker Is this is for an Adult Day Program or Suboxone clinic no If yes to above what is arrival time and what is departure time If yes to above how many days a week? Do you need a wheelchair van? NO If you use a wheelchair what is the height, width & length of the wheelchair? Do you need an escort to accompany you? If yes, explain why. NO Will you have an alternative pick-up address? NO Do you have a service animal? NO PT DOES NOT NEED RELEASE OF INFORMATION SIGNED documented in this encounter Plan of Treatment Not on file documented as of this encounter Visit Diagnoses Not on filedocumented in this encounter Care Teams Pairer Relationship Specialty Start Date End Date Rosalva Stephen MD [address] [place] [address] PCP - General Internal Medicine 04/01/21 documented as of this encounter
--- OUTSIDE RECORDS SUMMARY | 2025-08-30 14:21 | XMS_ITS | Encounter Summary ---
Author Organization [facility] Address [address] [place] [address] Care Team Providers Care Manager Privacy Name Role Phone Rosalva Stephen MD Primary Care Provider [phone] Reason for Visit * Reason Onset Date Comments PT-1 04/23/2022 Encounter Details Date Type Department Care Team Description 04/23/2022 Pt. Non Urgent Medical Question Adult Medicine [facility] [address] [place] [address] Rosalva Stephen MD [address] [place] [address] Social History Tobacco Use Types Packs/Day Years [...] encounter Miscellaneous Notes * Telephone Encounter - Amparo Henry M.A. - 04/24/2022 7:15 AM EDTFrom: Deb Malcolm To: Jac Stephen Sent: 04/23/2022 4:43 PM EDT Subject: PT 1 (ANOTHER) I need a PT 1 for Dominick ANIMAL HUSBANDRY TECHNICIAN Dr. Stovall Address: [address] [place] [address] [place] [address], [facility] Phone: [phone] My appt is for May 14 at 12pm. My dental appt is for May 15 at 9am with [facility], [address] [place] [address]. Thank you. documented in this encounter Plan of Treatment Not on file documented as of this encounter Visit Diagnoses Not on filedocumented in this encounter Care Teams Manager Privacy Relationship Specialty Start Date End Date Rosalva Stephen MD [address] [place] [address]20 PCP - General Internal Medicine 04/01/21 documented as of this encounter
--- OUTSIDE RECORDS SUMMARY | 2025-08-30 14:21 | XMS_ITS | Encounter Summary ---
Author Organization [facility] Address [address] [place] [address] Care Team Providers Care Port Drier Name Role Phone Rosalva Stephen MD Primary Care Provider [phone] Reason for Visit * Reason Onset Date Comments PT-1 04/23/2022 Encounter Details Date Type Department Care Team Description 04/23/2022 Pt. Non Urgent Medical Question Adult Medicine [facility] [address] [place] [address] [phone] Rosalva Stephen MD [address] [place] [address] [phone] Social History Tobacco Use Types Packs/Day Years [...] Telephone Encounter - Blanca Chung M.A. - 04/23/2022 3:55 PM EDTFrom: Deb Malcolm To: Jac Stephen Sent: 04/23/2022 3:23 PM EDT Subject: PT-1 Veronika, I will need PT-[address] please and thank you. documented in this encounter Plan of Treatment Not on file documented as of this encounter Visit Diagnoses Not on filedocumented in this encounter Care Teams Port Drier Relationship Specialty Start Date End Date Rosalva Stephen MD [address] [place] [address] 90796 PCP - General Internal Medicine 04/01/21 documented as of this encounter
--- OUTSIDE RECORDS SUMMARY | 2025-08-30 14:21 | XMS_ITS | Encounter Summary ---
Author Organization [facility] Address [address] [place] [address] Care Team Providers Care Chef De Froid Name Role Phone Frances Sung DO Primary Care Pro vider Unavailable Rosalva Stephen MD Primary Care Provider [phone] Franecs Sung DO Primary Care Pro vider Unavailable Rosalva Stephen MD Primary Care Provider [phone] Encounter Details Date Type Department Care Team Description 10/23/2020 Pt. Non Urgent Medic al Question Adult Medicine [address] [address] Frances Sung DO Social History Tobacco Use [...] have Coronavirus / COVID-19? No / Unsure 10/26/2020 1:34 PM EST documented as of this encounter Miscellaneous Notes * Telephone Encounter - Emma Hendricks - 10/23/2020 12:07 PM ESTFrom: Deb Malcolm To: Frances Gaytan DO Sent: 10/23/2020 12:02 PM EST Subject: Referral The hip doctor Dr Fernie North at [facility] says I need to get a referral to see Dr Edison Pisano. He a pearl peller who specializes in EDS. They also want need to see a hip surgeon who specializes in EDS. I was able to find a Dr Santhosh Alvarenga at [facility] a hip surgeon who is knowledgeable aboutEDS. documented in this encounter Plan of Treatment Not on file documented as of this encounter Visit Diagnoses Not on filedocumented in this encounter Care Teams Chef De Froid Relationship Specialty Start Date End Date Frances Sung DO PCP - General Internal Medicine 08/05/19 03/05/21 Rosalva Stephen MD [address] [place] [address] PCP - General Internal Medicine 03/06/21 03/11/21 Frances Sung DO PCP - General Internal Medicine 03/12/21 03/31/21 Rosalva Stephen MD [address] [place] [address] PCP - General Internal Medicine 04/01/21 documented as of this encounter
--- OUTSIDE RECORDS SUMMARY | 2025-08-30 14:21 | XMS_ITS | Encounter Summary ---
Author Organization [facility] Address [address] [place] [address] Care Team Providers Care Health Researcher Name Role Phone Frances Sung DO Primary Care Pro vider Unavailable Rosalva Stephen MD Primary Care Provider [phone] Frances Sung DO Primary Care Pro vider Unavailable Rosalva Stephen MD Primary Care Provider [phone] Encounter Details Date Type Department Care Team Description 12/12/2019 [facility] Medical Records [address] [place] [address] [phone] Abstract, Provider Social History Tobacco Use Types [...] on filedocumented in this encounter Care Teams Health Researcher Relationship Specialty Start Date End Date Frances Sung DO PCP - General Internal Medicine 08/05/19 03/05/21 Rosalva Stephen MD [address] [place] [address]20 PCP - General Internal Medicine 03/06/21 03/11/21 Frances Sung DO PCP - General Internal Medicine 03/12/21 03/31/21 Rosalva Stephen MD [address] [place] [address] PCP - General Internal Medicine 04/01/21 documented as of this encounter
--- OUTSIDE RECORDS SUMMARY | 2025-08-30 14:21 | XMS_ITS | Encounter Summary ---
Author Organization [facility] Address [address] [place] [address] Care Team Providers Care Developmental Electronics Assembler Name Role Phone Rosalva Stephen MD Primary Care Provider [phone] Reason for Visit * Reason Onset Date Comments PT-1 01/30/2022 Encounter Details Date Type Department Care Team Description 01/30/2022 Telephone Adult Medicine [facility] [address] [place] [address] [phone] Rosalva Stephen MD [address] [place] [address] [phone] PT-1 Social History Tobacco Use Types Packs/Day [...] Encounter - Carissa Ortez M.A. - 01/30/2022 3:36 PM EDT PT1 [id number] Exp 01/30/2023 * Telephone Encounter - Jeannine Glagsow - 01/30/2022 2:15 PM EDT [place]'s Medicaid Group new provider or submitter number is [id number] Verify and document patients [place] Health insurance ID # (NOT [facility] ID): [id number] Payor: [employer] FFS / Plan: [employer] ALLIANCE / Product Type: MEDICAID RISK Patient mailing address: [address] [place] [address] Dr Bella ROBLEDO [address] Telephone Information: Pt. demographics verified? YES If not accurate, update registration. Is this a NEW request or a RENEWAL? NEW Name of treating facility: [facility] Name (first & last) of treating provider? required : Dr Jorge Sanchez What is the medical reason why the patient is seeing the above provider? Hip Pain possible hip surgery Address/Zip code for treating provider: [address] [place] [address] [place] [address] Phone # for treating provider: [phone] Is the provider in the [employer] network (do they accept [place] Health insurance)? YES What specialtly is this provider? Physical Therapy When is the visit scheduled for? 02/13/2022 @ 1:00 pm How often you will be seeing this particular provider? 6 Do you have friends or family who can transport you to this visit? NO If yes, do not complete request. Is there anything stopping you from using public transportation? If yes, explain. : NO Is there a medical reason (diagnosis) why [...] on filedocumented in this encounter Care Teams Developmental Electronics Assembler Relationship Specialty Start Date End Date Rosalva Stephen MD [address] [place] [address] PCP - General Internal Medicine 04/01/21 documented as of this encounter
--- OUTSIDE RECORDS SUMMARY | 2025-08-30 14:21 | XMS_ITS | Encounter Summary ---
Author Organization [facility] Address [address] [place] [address] Care Team Providers Care Stock Shipper Name Role Phone Rosalva Stephen MD Primary Care Provider [phone] Encounter Details Date Type Department Care Team Description 03/12/2022 Home Health Certification Medical Records [address] [place] [address] [facility] [address] [address] Social History Tobacco Use Types [...] on filedocumented in this encounter Care Teams Stock Shipper Relationship Specialty Start Date End Date Rosalva Stephen MD [address] [place] [address] PCP - General Internal Medicine 04/01/21 documented as of this encounter
--- OUTSIDE RECORDS SUMMARY | 2025-08-30 14:22 | XMS_ITS | Encounter Summary ---
Author Organization [facility] Address [address] [place] [address] Care Team Providers Care Sprayer Hand Name Role Phone Frances Sung DO Primary Care Pro vider Unavailable Rosalva Stephen MD Primary Care Provider [phone] Frances Sung DO Primary Care Pro vider Unavailable Rosalva Stephen MD Primary Care Provider [phone] Reason for Visit * Reason Onset Date Comments Faxed Order 11/15/2020 Encounter Details Date Type Department Care Team Description 11/15/2020 Telephone Adult [address] [address] Frances Sung DO Faxed Order Social History Tobacco Use Types Packs/Day Years [...] Miscellaneous Notes * Telephone Encounter - Laura Ruggiero - 11/16/2020 1:08 PM EST More orders * Telephone Encounter - Laura Ruggiero - 11/15/2020 2:51 PM EST More orders * Telephone Encounter - Laura Ruggiero - 11/15/2020 8:30 AM EST Orders from [facility] to be signed and faxed back to [phone] . documented in this encounter Plan of Treatment Not on file documented as of this encounter Visit Diagnoses Not on filedocumented in this encounter Care Teams Sprayer Hand Relationship Specialty Start Date End Date Frances Sung DO PCP - General Internal Medicine 08/05/19 03/05/21 Rosalva Stephen MD [address] [place] [address] PCP - General Internal Medicine 03/06/21 03/11/21 Frances Sung DO PCP - General Internal Medicine 03/12/21 03/31/21 Rosalva Stephen MD [address] [place] [address] PCP - General Internal Medicine 04/01/21 documented as of this encounter
--- OUTSIDE RECORDS SUMMARY | 2025-08-30 14:22 | XMS_ITS | Encounter Summary ---
Author Organization [facility] Address [address] [place] [address] Care Team Providers Care Icu Clerk Name Role Phone Frances Sung DO Primary Care Pro vider Unavailable Rosalva Stephen MD Primary Care Provider [phone] Frances Sung DO Primary Care Pro vider Unavailable Rosalva Stephen MD Primary Care Provider [phone] Encounter Details Date Type Department Care Team Description 12/20/2020 Telephone Physiatry - [address] [id number] Na Reardon MD [address] [place] [address] [place], [place] [id number] Social History Tobacco Use Types Packs/Day Years [...] have Coronavirus / COVID-19? No / Unsure 12/20/2020 1:03 PM EST documented as of this encounter Patient Instructions * Patient Instructions* Na Reardon MD - 12/20/2020 10:20 AM EST What to expect at your Urine Drug Screening Appointment. Dear Patient, The process used by the [facility] to obtain a ???urine drug screen?? is similar to a ???legal chain of custody?? . This means that specific precautions are taken to assure your provider that the test results are accurate. 1. Please be prepared to have a urine sample collected. 2. When you check in at the Lab you must show a picture ID for identification purposes. A copy of your ID will be made for our records.. If you do not have an ID, testing cannot proceed. 3. The Lab staff will ask you to wash your hands, remove your coat, hat, etc. and empty your pockets. We recommended you bring as few possessions as possible with you. ?? Your items will be locked in a secure box in the bathroom with you. 4. The water will be turned off in the bathroom and there will be a colorant or dye in the toilet. You will not be able to run the water until a Lab staff member instructs you to do so. 5. When you have collected your urine specimen you will give the sample to the Lab staff. They willseal the cup in front of you. 6. The water will be turned back for you to wash your hands and flush the toilet and your personal items will be return to you at this time. 7. Your test is complete and the results will go the Physician that ordered the test. If you have any questions please contact the lab at: [facility] [place] documented in this encounter Miscellaneous Notes * Telephone Encounter - Elizabeth Crowe M.A. - 12/20/2020 10:26 AM EST Patient called and will come in early for UDS before appointment. * Telephone Encounter - Na Reardon MD - 12/20/2020 10:16 AM EST Patient needs her random UDS - since she has a followup today, please have her come 1 hour early, stop by the lab for the UDS prior to appointment. If she cannot, then she has 24 hours to do the UDS test. thanks documented in this encounter Plan of Treatment Not on file documented as of this encounter Results * (ABNORMAL) OXYCODONE, URINE (12/20/2020 1:04 PM EST) URINE OXYCODONE POSITIVE( A) ND 12/20/2020 5:05 PM EST [facility] Comment: Assay cutoff 100 ng/mL Semi-quantitative assay for screening purposes only. Unconfirmed screening result should not be used for non-medical purposes. *ALTERNATE METHOD CONFIRMATION DONE UPON REQUEST ONLY* 12/20/2020 1:04 PM EST 12/20/2020 1:05 PM EST Na Reardon MD LAB [facility] * (ABNORMAL) DRUG OF ABUSE SCREEN (12/20/2020 1:04 PM EST) BENZODIAZEPINE, URINE NONE DETECTED ND 12/20/2020 5:05 PM EST [facility] Comment: Assay cutoff 200 ng/mL Semi-quantitative assay for screening purposes only. Unconfirmed screening result should not be used for non-medical purposes. *ALTERNATE METHOD CONFIRMATION DONE UPON REQUEST ONLY* OPIATES, URINE POSITIVE(A) ND 5:05 PM EST [facility] Comment: Assay cutoff 300 ng/mL Semi-quantitative assay for screening purposes only. Unconfirmed screening result should not be used for non-medical purposes. *ALTERNATE METHOD CONFIRMATION DONE UPON REQUEST ONLY* BARBITURATES, URINE NONE DETECTED ND 12/20/2020 5:05 PM EST [facility] Comment: Assay cutoff 200 ng/mL Semi-quantitative assay for screening purposes only. Unconfirmed screening result should not be used for non-medical purposes. *ALTERNATE METHOD CONFIRMATION DONE UPON REQUEST ONLY* PAIN AMPHETAMINES POSITIVE(A) ND 2020 5:05 PM EST [facility] Comment: Assay cutoff 1000 ng/mL Semi-quantitative assay for screening purposes only. Unconfirmed screening result should not be used for non-medical purposes. *POSITIVE RESULTS ARE AUTOMATICALLY SENT FOR ALTERNATE METHOD CONFIRMATION* PAIN COCAINE NONE DETECTED ND 12/20/2020 5:05 PM EST [facility] Comment: Assay cutoff 300 ng/mL Semi-quantitative assay for screening purposes only. Unconfirmed screening result should not be used for non-medical purposes. *POSITIVE RESULTS ARE AUTOMATICALLY SENT FOR ALTERNATE METHOD CONFIRMATION* PAIN CANNABINOID POSITIVE(A) ND 021 5:05 PM EST [facility] Comment: Assay cutoff 50 ng/mL Semi-quantitative assay for screening purposes only. Unconfirmed screening result should not be used for non-medical purposes. *POSITIVE RESULTS ARE AUTOMATICALLY SENT FOR ALTERNATE METHOD CONFIRMATION* 12/20/2020 1:04 PM EST 12/20/2020 1:05 PM EST Na Reardon MD LAB [facility] * CHG DRUG SCREENING OPIATES 1 OR MORE (12/20/2020 1:04 PM EST) Codeine GCMS Negative ng/mL 12/25/2020 11:07 AM EDT [facility] Morphine GCMS Negative ng/mL 12/25/2020 11:07 AM EDT [facility] Hydromorphone GCMS Negative ng/mL 2020 11:07 AM EDT [facility] Hydrocodone GCMS Negative ng/mL 12/26/19 11:07 AM EDT [facility] PAIN OPIATE CREAT 162 20 - 250 mg/dL 12/25/2020 11:07 AM EDT [facility] PAIN OPIATE ADULTERANT Negative 12/25/2020 11:07 AM EDT [facility] Comment: Confirmation (LC/MS/MS) Decision Limits Morphine 25 ng/mL Codeine 25 ng/mL Hydrocodone 25 ng/mL Hydromorphone 25 ng/mL Oxycodone 25 ng/mL Oxymorphone 25 ng/mL Adulterant Decision Limit: General Oxidants 200 ug/mL The adulterant assay tests for General Oxidants, including Chromates and Nitrites. Adulterants are substances either ingested or added directly to a urine specimen to prevent the detection of drug use. If applicable, any drug confirmation testing reported here was developed and the performance characteristics determined by [facility]. This confirmation testing has not been cleared or approved by the FDA. The laboratory is regulated under CLIA as qualified to perform high-complexity testing. This test is used for patient testing purposes. It should not be regarded as investigational or for research. Test performed at [facility], [address] [place] [address] [address] Spencer Stephenson MD - Supervisor Assembly Oxycodone GCMS 1902 ng/mL 12/25/2020 11:07 AM EDT [facility] Oxymorphone GCMS 1985 ng/mL 12/26/19 11:07 AM EDT [facility] 12/20/2020 1:04 PM EST 12/20/2020 1:05 PM EST Na Reardon MD LAB [facility] documented in this encounter Visit Diagnoses Diagnosis Encounter for long-term (current) use of medications- Primary Encounter for long-term (current) use of other medications documented in this encounter Care Teams Icu Clerk Relationship Specialty Start Date End Date Frances Sung DO PCP - General Internal Medicine 08/05/19 03/05/21 Rosalva Stephen MD [address] [place] [id number] PCP - General Internal Medicine 03/06/21 03/11/21 Frances Sung DO PCP - General Internal Medicine 03/12/21 03/31/21 Rosalva Stephen MD [address] [place] [id number] PCP - General Internal Medicine 04/01/21 documented as of this encounter
--- OUTSIDE RECORDS SUMMARY | 2025-08-30 14:22 | XMS_ITS | Encounter Summary ---
Author Organization [facility] Address [address] [place] [address] Care Team Providers Care Curatorial Assistant Name Role Phone Frances Sung DO Primary Care Pro vider Unavailable Rosalva Stephen MD Primary Care Provider [phone] Frances Sung DO Primary Care Pro vider Unavailable Rosalva Stephen MD Primary Care Provider [phone] Encounter Details Date Type Department Care Team Description 12/22/2019 Pt. Non Urgent Medical Question Physiatry - [address] [address] Na Reardon MD [address] [place] [address] [place] [id number] Social History Tobacco Use Types Packs/Day Years [...] Progress Notes * Susan Nielson M.A. - 12/22/2019 1:16 PM EDTFrom: Deb Malcolm To: Na Reardon MD Sent: 12/22/2019 12:38 PM EDT Subject: hEDS Diagnosis Yesterday I called [facility] to fax over the documents with my hEDS diagnosis to my PCP. I've sent a message to them asking to see if they've received them but I haven't heard back yet. 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 On exam, she has joint hypermobility (Beighton 6/), her skin is velvety and hyperextensible, and she has atrophic scarring. Also with a h/o uterine prolapse. We sent an EDS panel which found a VUS in COL5A1, c.399G>A([id number]). 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 Deb continues with significant joint pain all over and follows in rheumatology as wellas physiatry for management. She takes daily Percocet, Flexeril, ibuprofen, and gabapentin with minimal relief. She is no longer able to work. Juan-Danlos syndromes are a heterogenous group of herit able connective tissue disorders characterized by the basic clinical hallmarks of joint hypermobility, skin hyperextensibility and tissue fragility. Hypermobile EDS remains a clinical diagnosis whileEDS, classic type is associated with joint hypermobility along with other features such as skin hyperextensibility and abnormal wound healing. The majority of individuals with EDS, classic type have mutations in COL5A1 or COL5A2, the two genes which encode type V collagen. Based on diagnostic criteria, Deb does indeed meet the clinical criteria for EDS, hypermobile type, yet, she also exhibits mild characteristics for EDS, classic ty pe. We talked about ways to minimize injury to her joints and recommended low impact exercise to increase muscle tone (walking, bicycling, low impact aerobics, swimming) along with core toning exercises and balance exercises focusing on the abdominal, lumbar, and interscapular muscles. In addition, Deb may seek a second opinion and we talked about twospecialized EDS clinics in [place]- Dr. Edison Pisano in [place] and [facility] in [place]. We did not schedule followup today, but would like to see her back in a couple of years in order to review her variant for possible reclassification. Sincerely, Karoline Sultana NP Medical Genetics CC: PCP documented in this encounter Plan of Treatment Not on file documented as of this encounter Visit Diagnoses Not on filedocumented in this encounter Care Teams Curatorial Assistant Relationship Specialty Start Date End Date Frances Sung DO PCP - General Internal Medicine 08/05/19 03/05/21 Rosalva Stephen MD [address] [place] [address] [id number] PCP - General Internal Medicine 03/06/21 03/11/21 Frances Sung DO PCP - General Internal Medicine 03/12/21 03/31/21 Rosalva Stephen MD [address] [place] [address] [id number] PCP - General Internal Medicine 04/01/21 documented as of this encounter
--- OUTSIDE RECORDS SUMMARY | 2025-08-30 14:22 | XMS_ITS | Encounter Summary ---
Author Organization [facility] Address [address] [place] [address] Care Team Providers Care Record Press Tender Name Role Phone Frances Sung DO Primary Care Pro vider Unavailable Rosalva Stephen MD Primary Care Provider [phone] Frances Sung DO Primary Care Pro vider Unavailable Rosalva Stephen MD Primary Care Provider [phone] Encounter Details Date Type Department Care Team Description 01/02/2020 Refill Physiatry - [address] [address] Na Reardon MD [address] [place] [address] [place], [place] [phone] Social History Tobacco Use Types Packs/Day Years [...] Telephone Encounter - Elizabeth Crowe M.A. - 01/03/2020 9:54 AM EDT Rx placed in Physiatry ppu * Telephone Encounter - Alyssa Lyon L.P.N. - 01/03/2020 7:52 AM EDT Contracted Last refill 12/09/19 Last visit 11/25/19 Next visit 02/23/20 Last masspat 12/12/19 masspat printed and to Dr Avila to review Lab Results Component Value Date URBENZO NONE DETECTED 07/06/2019 UROPIATES POSITIVE 07/06/2019 URBARBITUATE NONE DETECTED 07/06/2019 PAINAMPHETAM POSITIVE 07/06/2019 PAINCOCAINE NONE DETECTED 07/06/2019 PAINCANNABIN POSITIVE 07/06/2019 * Telephone Encounter - Elizabeth Rodriguez M.A. - 01/02/2020 2:25 PM EDT Patient is not due for medication until 01/05. documented in this encounter Plan of Treatment Not on file documented as of this encounter Visit Diagnoses Diagnosis Chronic left shoulder pain Pain in joint, shoulder region History of cervical spinal surgery Personal history of surgery to other organs Chronic pain of right knee documented in this encounter Care Teams Record Press Tender Relationship Specialty Start Date End Date Frances Sung DO PCP - General Internal Medicine 08/05/19 03/05/21 Rosalva Stephen MD [address] [place] [id number] PCP - General Internal Medicine 03/06/21 03/11/21 Frances Sung DO PCP - General Internal Medicine 03/12/21 03/31/21 Rosalva Stephen MD [address] [place] [address] [id number] PCP - General Internal Medicine 04/01/21 documented as of this encounter
--- OUTSIDE RECORDS SUMMARY | 2025-08-30 14:22 | XMS_ITS | Encounter Summary ---
Author Organization [facility] Address [address] [place] [address] Care Team Providers Care Shoe Shiner Name Role Phone Frances Sung DO Primary Care Pro vider Unavailable Rosalva Stephen MD Primary Care Provider [phone] Frances Sung DO Primary Care Pro vider Unavailable Rosalva Stephen MD Primary Care Provider [phone] Encounter Details Date Type Department Care Team Description 11/12/2020 Refill Physiatry - [address] [address] Mikey Bowser PA-C Social History Tobacco Use [...] Telephone Encounter - Elizabeth Crowe M.A. - 11/14/2020 1:59 PM EST Rx placed in physiatry ppu in specialties. * Telephone Encounter - Na Reardon MD - 11/14/2020 11:32 AM EST MassPAT report reviewed today for Deb Gold * Telephone Encounter - Bisi Stoner - 11/13/2020 1:09 PM EST Contracted Last refill: 10/15/20 #84 0 refills Last OV: 09/21/20 Next OV: 12/20/20 Lab Results Component Value Date URBENZO NONE DETECTED 09/21/2020 UROPIATES POSITIVE 09/21/2020 URBARBITUATE NONE DETECTED 09/21/2020 PAINAMPHETAM POSITIVE 09/21/2020 PAINCOCAINE NONE DETECTED 09/21/2020 PAINCANNABIN POSITIVE 09/21/2020 Masspat printed documented in this encounter Plan of Treatment Not on file documented as of this encounter Visit Diagnoses Diagnosis Chronic left shoulder pain Pain in joint, shoulder region History of cervical spinal surgery Personal history of surgery to other organs Chronic pain of right knee documented in this encounter Care Teams Shoe Shiner Relationship Specialty Start Date End Date Frances Sung DO PCP - General Internal Medicine 08/05/19 03/05/21 Rosalva Stephen MD [address] [place] [id number] PCP - General Internal Medicine 03/06/21 03/11/21 Frances Sung DO PCP - General Internal Medicine 03/12/21 03/31/21 Rosalva Stephen MD [address] [place] [id number] PCP - General Internal Medicine 04/01/21 documented as of this encounter
--- OUTSIDE RECORDS SUMMARY | 2025-08-30 14:23 | XMS_ITS | Encounter Summary ---
Author Organization [facility] Address [address] [place] [address] Care Team Providers Care Geospatial Information Scientist Name Role Phone Frances Sung DO Primary Care Pro vider Unavailable Rosalva Stephen MD Primary Care Provider [phone] Frances Sung DO Primary Care Pro vider Unavailable Rosalva Stephen MD Primary Care Provider [phone] Encounter Details Date Type Department Care Team Description 02/06/2020 [facility] Medical Records [address] [place] [address] Abstract, Provider Social History Tobacco Use Types [...] on filedocumented in this encounter Care Teams Geospatial Information Scientist Relationship Specialty Start Date End Date Frances Sung DO PCP - General Internal Medicine 08/05/19 03/05/21 Rosalva Stephen MD [address] [place] [phone] PCP - General Internal Medicine 03/06/21 03/11/21 Frances Sung DO PCP - General Internal Medicine 03/12/21 03/31/21 Rosalva Stephen MD [address] [place] [phone] PCP - General Internal Medicine 04/01/21 documented as of this encounter
--- OUTSIDE RECORDS SUMMARY | 2025-08-30 14:23 | XMS_ITS | Encounter Summary ---
Author Organization [facility] Address [address] [place] [address] Care Team Providers Care Bessemer Regulator Name Role Phone Frances Sung DO Primary Care Pro vider Unavailable Rosalva Stephen MD Primary Care Provider [phone] Frances Sung DO Primary Care Pro vider Unavailable Rosalva Stephen MD Primary Care Provider [phone] Encounter Details Date Type Department Care Team Description 03/26/2020 Refill Physiatry - [address] [address] Na Reardon MD [address] [place] [address] [place], [place] [phone] Social History Tobacco Use Types Packs/Day Years [...] Telephone Encounter - Elizabeth Crowe M.A. - 03/30/2020 9:33 AM EDT Rx placed in Physiatry ppu in specialties. Message left for patient to return call. Needs to be notified rx is in specialties and rx can be picked up between 8-4:30. Natalie Merlos * Telephone Encounter - Na Reardon MD - 03/30/2020 8:56 AM EDT MassPAT report reviewed today for Deb Malcolm * Telephone Encounter - Alyssa Lyon L.P.N. - 03/27/2020 8:12 AM EDT Contracted Last refill 03/02/20 Last visit 02/23/20 Next visit 05/17/20 Last masspat 02/06/20 masspat printed and to Dr Avila to [...] knee documented in this encounter Care Teams Bessemer Regulator Relationship Specialty Start Date End Date Frances Sung DO PCP - General Internal Medicine 08/05/19 03/05/21 Rosalva Stephen MD [address] [place] [phone] PCP - General Internal Medicine 03/06/21 03/11/21 Frances Sung DO PCP - General Internal Medicine 03/12/21 03/31/21 Rosalva Stephen MD [address] [place] [id number] PCP - General Internal Medicine 04/01/21 documented as of this encounter
--- OUTSIDE RECORDS SUMMARY | 2025-08-30 14:23 | XMS_ITS | Encounter Summary ---
Author Organization [facility] Address [address] [place] [address] Care Team Providers Care Tilt Wall Supervisor Name Role Phone Frances Sung DO Primary Care Pro vider Unavailable Rosalva Stephen MD Primary Care Provider [phone] Frances Sung DO Primary Care Pro vider Unavailable Rosalva Stephen MD Primary Care Provider [phone] Encounter Details Date Type Department Care Team Description 02/08/2021 Drop Count Associate Report Medical Records [address] [place] [address] Abstract, Provider Social History Tobacco Use Types [...] on filedocumented in this encounter Care Teams Tilt Wall Supervisor Relationship Specialty Start Date End Date Frances Sung DO PCP - General Internal Medicine 08/05/19 03/05/21 Rosalva Stephen MD [address] [place] [phone] PCP - General Internal Medicine 03/06/21 03/11/21 Frances Sung DO PCP - General Internal Medicine 03/12/21 03/31/21 Rosalva Stephen MD [address] [place] [phone] PCP - General Internal Medicine 04/01/21 documented as of this encounter
--- OUTSIDE RECORDS SUMMARY | 2025-08-30 14:23 | XMS_ITS | Encounter Summary ---
Author Organization [facility] Address [address] [place] [address] Care Team Providers Care Piercing Mill Operator Name Role Phone Frances Sung DO Primary Care Pro vider Unavailable Rosalva Stephen MD Primary Care Provider [phone] Frances Sung DO Primary Care Pro vider Unavailable Rosalva Stephen MD Primary Care Provider [phone] Encounter Details Date Type Department Care Team Description 02/03/2021 Refill Physiatry - [address] [address] Na Reardon MD [address] [place] [address] Dr [place], [place] [id number] Social History Tobacco Use Types Packs/Day Years [...] Telephone Encounter - Elizabeth Crowe M.A. - 02/06/2021 2:35 PM EDT Rx placed in Physiatry ppu in specialties. * Telephone Encounter - Na Reardon MD - 02/06/2021 1:58 PM EDT MassPAT report reviewed today for Deb Gold * Telephone Encounter - Alyssa Lyon L.P.N. - 02/04/2021 8:08 AM EDT Contracted Last refill 01/09/21 Last visit 12/20/20 Next visit 03/22/21 Per Mass pat filled at pharmacy on 01/11/21 Lab Results Component Value Date URBENZO NONE DETECTED 12/20/2020 UROPIATES POSITIVE 12/20/2020 URBARBITUATE NONE DETECTED 12/20/2020 PAINAMPHETAM POSITIVE 12/20/2020 PAINCOCAINE NONE DETECTED 12/20/2020 PAINCANNABIN POSITIVE 12/20/2020 last masspat 10/18/20 masspat printed and to Dr Avila to review documented in this encounter Plan of Treatment Not on file documented as of this encounter Visit Diagnoses Diagnosis Chronic left shoulder pain Pain in joint, shoulder region History of cervical spinal surgery Personal history of surgery to other organs Chronic pain of right knee documented in this encounter Care Teams Piercing Mill Operator Relationship Specialty Start Date End Date Frances Sung DO PCP - General Internal Medicine 08/05/19 03/05/21 Rosalva Stephen MD [address] [place] [address] PCP - General Internal Medicine 03/06/21 03/11/21 Frances Sung DO PCP - General Internal Medicine 03/12/21 03/31/21 Rosalva Stephen MD [address] [place] [address] PCP - General Internal Medicine 04/01/21 documented as of this encounter
--- OUTSIDE RECORDS SUMMARY | 2025-08-30 14:23 | XMS_ITS | Encounter Summary ---
Author Organization [facility] Address [address] [place] [address] Care Team Providers Care Natural Gas Engineer Name Role Phone Frances Sung DO Primary Care Pro vider Unavailable Rosalva Stephen MD Primary Care Provider [phone] Encounter Details Date Type Department Care Team Description 03/28/2021 [facility] Medical Records [address] [place] [address] Abstract, Provider Social History Tobacco Use Types [...] on filedocumented in this encounter Care Teams Natural Gas Engineer Relationship Specialty Start Date End Date Frances Sung DO PCP - General Internal Medicine 03/12/21 03/31/21 Rosalva Stephen MD [address] [place] [address] PCP - General Internal Medicine 04/01/21 documented as of this encounter
--- OUTSIDE RECORDS SUMMARY | 2025-08-30 14:23 | XMS_ITS | Encounter Summary ---
Author Organization [facility] Address [address] [place] [address] Care Team Providers Care Salesperson Sheet Music Name Role Phone Frances Sung DO Primary Care Pro vider Unavailable Rosalva Stephen MD Primary Care Provider [phone] Frances Sung DO Primary Care Pro vider Unavailable Rosalva Stephen MD Primary Care Provider [phone] Encounter Details Date Type Department Care Team Description 04/25/2020 Refill Physiatry - [address] [address] Na Reardon MD [address] [place] [address] Dr [place], [place] [id number] Social History Tobacco Use Types Packs/Day Years [...] Telephone Encounter - Elizabeth Crowe M.A. - 04/26/2020 9:52 AM EDT Rx placed in Physiatry ppu in specialties * Telephone Encounter - Na Readron MD - 04/26/2020 8:58 AM EDT MassPAT report reviewed today for Deb Malcolm * Telephone Encounter - Alyssa Lyon L.P.N. - 04/25/2020 1:01 PM EDT Contracted Last visit injection 04/16/20 o/v 02/23/20 Next visit 05/17/20 Last masspat 02/06/20 [...] knee documented in this encounter Care Teams Salesperson Sheet Music Relationship Specialty Start Date End Date Frances Sung DO PCP - General Internal Medicine 08/05/19 03/05/21 Rosalva Stephen MD [address] [place] [address] PCP - General Internal Medicine 03/06/21 03/11/21 Frances Sung DO PCP - General Internal Medicine 03/12/21 03/31/21 Rosalva Stephen MD [address] [place] [address] PCP - General Internal Medicine 04/01/21 documented as of this encounter
--- OUTSIDE RECORDS SUMMARY | 2025-08-30 14:23 | XMS_ITS | Encounter Summary ---
Author Organization [facility] Address [address] [place] [address] Care Team Providers Care Bakery Pastry Internship Name Role Phone Frances Sung DO Primary Care Pro vider Unavailable Rosalva Stephen MD Primary Care Provider [phone] Frances Sung DO Primary Care Pro vider Unavailable Rosalva Stephen MD Primary Care Provider [phone] Encounter Details Date Type Department Care Team Description 12/25/2020 Medical Marijuana Card Medical Records [address] [place] [address] Abstract, Provider Social History Tobacco Use Types [...] on filedocumented in this encounter Care Teams Bakery Pastry Internship Relationship Specialty Start Date End Date Frances Sung DO PCP - General Internal Medicine 08/05/19 03/05/21 Rosalva Stephen MD [address] [place] [address] PCP - General Internal Medicine 03/06/21 03/11/21 Frances Sung DO PCP - General Internal Medicine 03/12/21 03/31/21 Rosalva Stephen MD [address] [place] [address] PCP - General Internal Medicine 04/01/21 documented as of this encounter
--- OUTSIDE RECORDS SUMMARY | 2025-08-30 14:23 | XMS_ITS | Encounter Summary ---
Author Organization [facility] Address [address] [place] [address] Care Team Providers Care Development Representative Name Role Phone Rosalva Stephen MD Primary Care Provider [phone] Encounter Details Date Type Department Care Team Description 05/11/2022 Home Health Certification Medical Records [address] [place] [address] [facility] [address] [phone] Social History Tobacco Use Types [...] on filedocumented in this encounter Care Teams Development Representative Relationship Specialty Start Date End Date Rosalva Stephen MD [address] [place] [address] PCP - General Internal Medicine 04/01/21 documented as of this encounter
--- OUTSIDE RECORDS SUMMARY | 2025-08-30 14:23 | XMS_ITS | Encounter Summary ---
Author Organization [facility] Address [address] [place] [address] Care Team Providers Care Acoustical Material Worker Name Role Phone Frances Sung DO Primary Care Pro vider Unavailable Rosalva Stephen MD Primary Care Provider [phone] Frances Sung DO Primary Care Pro vider Unavailable Rosalva Stephen MD Primary Care Provider [phone] Encounter Details Date Type Department Care Team Description 02/02/2020 Refill Physiatry - [address] [address] Na Reardon MD [address] [place] [address] Dr [place], [place] [id number] Social History Tobacco Use Types Packs/Day Years [...] Telephone Encounter - Elizabeth Crowe M.A. - 02/02/2020 9:44 AM EDT Rx placed in Physiatry ppu * Telephone Encounter - Na Reardon MD - 02/02/2020 9:26 AM EDT MassPAT report reviewed today for Deb Gold * Telephone Encounter - Susan Nielson M.A. - 02/02/2020 8:36 AM EDT Contracted last ov 11/25/19 Last refill 01/03/20 Next ov 02/23/20 Lab Results Component Value Date URBENZO NONE DETECTED 07/06/2019 UROPIATES POSITIVE 07/06/2019 URBARBITUATE NONE DETECTED 07/06/2019 PAINAMPHETAM POSITIVE 07/06/2019 PAINCOCAINE NONE DETECTED 07/06/2019 PAINCANNABIN POSITIVE 07/06/2019 Mass pat printed documented in this encounter Plan of Treatment Not on file documented as of this encounter Visit Diagnoses Diagnosis Chronic left shoulder pain Pain in joint, shoulder region History of cervical spinal surgery Personal history of surgery to other organs Chronic pain of right knee documented in this encounter Care Teams Acoustical Material Worker Relationship Specialty Start Date End Date Frances Sung DO PCP - General Internal Medicine 08/05/19 03/05/21 Rosalva Stephen MD [address] [place] [address] PCP - General Internal Medicine 03/06/21 03/11/21 Frances Sung DO PCP - General Internal Medicine 03/12/21 03/31/21 Rosalva Stephen MD [address] [place] [address] PCP - General Internal Medicine 04/01/21 documented as of this encounter
--- OUTSIDE RECORDS SUMMARY | 2025-08-30 14:23 | XMS_ITS | Encounter Summary ---
Author Organization [facility] Address [address] [place] [address] Care Team Providers Care Barrow Worker Name Role Phone Frances Sung DO Primary Care Pro vider Unavailable Milton Hummel Primary Care Provider Unav ailable Rj Lino MD Primary Care Provider Unava ilable Milton Hummel Primary Care Provider Unav ailable Frances Sung DO Primary Care Pro vider Unavailable Rosalva Stephen MD Primary Care Provider [phone] Frances Sung DO Primary Care Pro vider Unavailable Rosalva Stephen MD Primary Care Provider [phone] Encounter Details Date Type Department Care Team Description 02/22/2019 [facility] Medical Records [address] [place] [address] Abstract, Provider Social History Tobacco Use Types [...] on filedocumented in this encounter Care Teams Barrow Worker Relationship Specialty Start Date End Date Frances Sung DO PCP - General Internal Medicine 07/12/18 02/24/19 Milton Hummel PCP - General Internal Medicine 02/25/19 06/26/19 Rj Lino MD PCP - General Internal Medicine 06/27/19 07/05/19 Milton Hummel PCP - General Internal Medicine 07/06/19 08/04/19 Frances Sung DO PCP - General Internal Medicine 08/05/19 03/05/21 Rosalva Stephen MD [address] [place] [address] [phone] PCP - General Internal Medicine 03/06/21 03/11/21 Frances Sung DO PCP - General Internal Medicine 03/12/21 03/31/21 Rosalva Stephen MD [address] [place] [address] [phone] PCP - General Internal Medicine 04/01/21 documented as of this encounter
--- OUTSIDE RECORDS SUMMARY | 2025-08-30 14:23 | XMS_ITS | Encounter Summary ---
Author Organization [facility] Address [address] [place] [address] Care Team Providers Care Acute Care Certified Nursing Assistant Name Role Phone Frances Sung DO Primary Care Pro vider Unavailable Rosalva Stephen MD Primary Care Provider Frances Sung DO Primary Care Pro vider Unavailable Rosalva Stephen MD Primary Care Provider [phone] Encounter Details Date Type Department Care Team Description 03/20/2020 Pt. Non Urgent Medical Question Rheumatology - [address] [address] Loyd Langston PA Social History Tobacco Use [...] as of this encounter Progress Notes * Mariluz Hodge M.A. - 03/21/2020 8:03 AM EDTFrom: Deb Malcolm To: Loyd Langston PA-C Sent: 03/20/2020 7:25 PM EDT Subject: Appt I'm unable to schedule an appointment with you online. The gabapentin doesn't feel like it's working enough. Can the dosage be increased? Do I need to make an appointment first? documented in this encounter Plan of Treatment Not on file documented as of this encounter Visit Diagnoses Not on filedocumented in this encounter Care Teams Acute Care Certified Nursing Assistant Relationship Specialty Start Date End Date Frances Sung DO PCP - General Internal Medicine 08/05/19 03/05/21 Rosalva Stephen MD [address] [place] [address] [phone] PCP - General Internal Medicine 03/06/21 03/11/21 Frances Sung DO PCP - General Internal Medicine 03/12/21 03/31/21 Rosalva Stephen MD [address] [place] [address] PCP - General Internal Medicine 04/01/21 documented as of this encounter
--- OUTSIDE RECORDS SUMMARY | 2025-08-30 14:23 | XMS_ITS | Encounter Summary ---
Author Organization [facility] Address [address] [place] [address] Care Team Providers Care Carpenter Assembler Name Role Phone Frances Sung DO Primary Care Pro vider Unavailable Rosalva Stephen MD Primary Care Provider [phone] Frances Sung DO Primary Care Pro vider Unavailable Rosalva Stephen MD Primary Care Provider [phone] Reason for Visit * Reason Onset Date Comments Orders Call 01/02/2021 MRI authorizatio n Encounter Details Date Type Department Care Team Description 01/02/2021 Telephone Adult Medicine [address] [phone] Frances Sung DO Orders Call (MRI authorization ) Social History Tobacco Use Types Packs/Day Years [...] encounter Miscellaneous Notes * Telephone Encounter - Maranda Anthony - 01/02/2021 8:59 AM EDT Jodi from [facility], is looking for and authorization for the mri from 08/23/2020. Her fax number is [phone] documented in this encounter Plan of Treatment Not on file documented as of this encounter Visit Diagnoses Not on filedocumented in this encounter Care Teams Carpenter Assembler Relationship Specialty Start Date End Date Frances Sung DO PCP - General Internal Medicine 08/05/19 03/05/21 Rosalva Stephen MD [address] [place] [address] PCP - General Internal Medicine 03/06/21 03/11/21 Frances Sung DO PCP - General Internal Medicine 03/12/21 03/31/21 Rosalva Stephen MD [address] [place] [address] PCP - General Internal Medicine 04/01/21 documented as of this encounter
--- OUTSIDE RECORDS SUMMARY | 2025-08-30 14:24 | XMS_ITS | Encounter Summary ---
Author Organization [facility] Address [address] [place] [address] Care Team Providers Care Extrusion Press Adjuster Name Role Phone [place] Colasacco, Frances DO [...] Unavailable Rosalva Stephen MD Primary Care Provider [phone] [place] Colasacco, Frances DO Primary Care Pro vider Unavailable Rosalva Stephen MD Primary Care Provider [phone] Encounter Details Date Type Department Care Team Description 12/01/2017 [facility] Medical Records [address] [place] [address] Abstract, Provider Social History Tobacco Use Types [...] on filedocumented in this encounter Care Teams Extrusion Press Adjuster Relationship Specialty Start Date End Date Frances Sung, PCP - General Internal Medicine [...] Medicine 08/05/19 03/05/21 Rosalva Stephen MD [address] [place] [address] [phone] PCP - General Internal Medicine 03/06/21 03/11/21 Frances Sung, PCP - General Internal Medicine 03/12/21 03/31/21 Rosalva Stephen MD [address] [place] [address] [phone] PCP - General Internal Medicine 04/01/21 documented as of this encounter
--- OUTSIDE RECORDS SUMMARY | 2025-08-30 14:24 | XMS_ITS | Encounter Summary ---
Author Organization [facility] Address [address] [place] [address] Care Team Providers Care Room Manager Name Role Phone Frances Sung DO Primary Care Pro vider Unavailable Rosalva Stephen MD Primary Care Provider [phone] Frances Sung DO Primary Care Pro vider Unavailable Rosalva Stephen MD Primary Care Provider [phone] Encounter Details Date Type Department Care Team Description 05/01/2020 [facility] Medical Records [address] [place] [address] Abstract, Provider Social History Tobacco Use Types [...] on filedocumented in this encounter Care Teams Room Manager Relationship Specialty Start Date End Date Frances Sung DO PCP - General Internal Medicine 08/05/19 03/05/21 Rosalva Stephen MD [address] [place] [address] PCP - General Internal Medicine 03/06/21 03/11/21 Frances Sung DO PCP - General Internal Medicine 03/12/21 03/31/21 Rosalva Stephen MD [address] [place] [address] PCP - General Internal Medicine 04/01/21 documented as of this encounter
--- OUTSIDE RECORDS SUMMARY | 2025-08-30 14:24 | XMS_ITS | Encounter Summary ---
Author Organization [facility] Address [address] [place] [address] Care Team Providers Care Tenant Selector Name Role Phone Sharla Gaytan, Frances DO Primary Care Pro vider Unavailable Milton Hummel Primary Care Provider Unav ailRj Pyle MD Primary Care Provider Unava ilMilton Alicea Primary Care Provider Unav ailable Sharla Issacco, Frances DO Primary Care Pro vider Unavailable Rosalva Stephen MD Primary Care Provider Krakojob Colasajohanneo, Frances DO Primary Care Pro vider Unavailable Rosalva Stephen MD Primary Care Provider [phone] Reason for Visit * Reason Onset Date Comments Provider Call Back 02/11/2019 Encounter Details Date Type Department Care Team Description 02/11/2019 Telephone Physiatry - [address] [phone] Na Reardon MD [address] [place] [address] [place] [address] Provider Call Back Social History Tobacco Use [...] Miscellaneous Notes * Telephone Encounter - Susan Miranda 02/11/2019 12:02 PM EDT Patient will come in between 1-2:30pm * Telephone Encounter - Mitchel Bai - 02/11/2019 11:58 AM EDT Patient missed today's appointment because her car will not start. Patient was told she will get a call back regarding today's appointment and an injection that she was supposed to get. Please call. documented in this encounter Plan of Treatment Not on file documented as of this encounter Visit Diagnoses Not on filedocumented in this encounter Care Teams Tenant Selector Relationship Specialty Start Date End Date Frances Sung DO PCP - General Internal Medicine 07/12/18 02/24/19 Milton Hummel PCP - General Internal Medicine 02/25/19 06/26/19 Rj Lino MD PCP - General Internal Medicine 06/27/19 07/05/19 Milton Hummel PCP - General Internal Medicine 07/06/19 08/04/19 Frances Sung DO PCP - General Internal Medicine 08/05/19 03/05/21 Rosalva Stephen MD [address] [place] [address] PCP - General Internal Medicine 03/06/21 03/11/21 Frances Sung DO PCP - General Internal Medicine 03/12/21 03/31/21 Rosalva Stephen MD [address] [place] [address] PCP - General Internal Medicine 04/01/21 documented as of this encounter
--- OUTSIDE RECORDS SUMMARY | 2025-08-30 14:24 | XMS_ITS | Encounter Summary ---
Author Organization [facility] Address [address] [place] [address] Care Team Providers Care Pantographer Name Role Phone Hector Morris MD Primary Care Provider Unavail able [facility], [facility] Primary Care Provider Unavailabl e [place] [...] Unavailable Rosalva Stephen MD Primary Care Provider [phone] [place] Colasacco, Frances DO Primary Care Pro vider Unavailable Rosalva Stephen MD Primary Care Provider [phone] Encounter Details Date Type Department Care Team Description 11/02/2014 Benefit Authorizer Report Medical Records [address] [place] [address] Luis Pickens MD Social History Tobacco Use Types Packs/Day [...] on filedocumented in this encounter Care Teams Pantographer Relationship Specialty Start Date End Date Hector Morris MD PCP - General Internal Medicine 10/18/13 01/31/16 [facility], [facility] PCP - General Internal Medicine 02/01/16 02/11/16 [...] Medicine 08/05/19 03/05/21 Rosalva Stephen MD [address] [place] [address] PCP - General Internal Medicine 03/06/21 03/11/21 Frances Sung, PCP - General Internal Medicine 03/12/21 03/31/21 Rosalva Stephen MD [address] [place] [address] PCP - General Internal Medicine 04/01/21 documented as of this encounter
--- OUTSIDE RECORDS SUMMARY | 2025-08-30 14:24 | XMS_ITS | Encounter Summary ---
Author Organization [facility] Address [address] [place] [address] Care Team Providers Care Vehicle Controls Engineer Name Role Phone Frances Sung DO Primary Care Pro vider Unavailable Rosalva Stephen MD Primary Care Provider [phone] Encounter Details Date Type Department Care Team Description 03/22/2021 Pt. Non Urgent Medic al Question Adult Medicine [address] [phone] Frances Sung DO Social History Tobacco Use [...] encounter Miscellaneous Notes * Telephone Encounter - Frances Gaytan DO - 03/28/2021 3:33 PM EDT Ref placed * Telephone Encounter - Jaymie Black C.M.A - 03/25/2021 7:06 AM EDTFrom: Deb Malcolm To: Maria Luisa Sharla Gaytan Sent: 03/22/2021 4:29 PM EDT Subject: Referral for hip The referral to a previous provider was denied because they don't accept my insurance. The following provider does accept my insurance. Please send a referral to this orthopedic surgeon. He does hip replacements. Jorge Mei MD PCP: No Specialty: Surgery - Orthopedic [facility] More about this provider Add to List [address] [place] [address] documented in this encounter Plan of Treatment Not on file documented as of this encounter Visit Diagnoses Not on filedocumented in this encounter Care Teams Vehicle Controls Engineer Relationship Specialty Start Date End Date Frances Sung DO PCP - General Internal Medicine 03/12/21 03/31/21 Rosalva Stephen MD [address] [place] [address] PCP - General Internal Medicine 04/01/21 documented as of this encounter
--- OUTSIDE RECORDS SUMMARY | 2025-08-30 14:25 | XMS_ITS | Encounter Summary ---
Author Organization [facility] Address [address] [place] [address] Care Team Providers Care Pump Assembler Name Role Phone [place] Colasacco, Frances DO [...] Unavailable Rosalva Stephen MD Primary Care Provider [phone] [place] Colasacco, Frances DO Primary Care Pro vider Unavailable Rosalva Stephen MD Primary Care Provider [phone] Encounter Details Date Type Department Care Team Description 04/29/2016 Controlled Substance Contract with [facility] Medical Records [address] [place] [address] Abstract, Provider Social History Tobacco Use Types [...] on filedocumented in this encounter Care Teams Pump Assembler Relationship Specialty Start Date End Date K[place] Colasacco, Frances, PCP - General Internal Medicine 02/12/16 04/28/18 [...] Medicine 08/05/19 03/05/21 Rosalva Stephen MD [address] [place] [address] PCP - General Internal Medicine 03/06/21 03/11/21 Frances Sung, PCP - General Internal Medicine 03/12/21 03/31/21 Rosalva Stephen MD [address] [place] [address] [phone] PCP - General Internal Medicine 04/01/21 documented as of this encounter
--- OUTSIDE RECORDS SUMMARY | 2025-08-30 14:25 | XMS_ITS | Encounter Summary ---
Author Organization [facility] Address [address] [place] [address] Care Team Providers Care Sap Security Architect Name Role Phone [place] Colasacco, Frances DO [...] Unavailable Rosalva Stephen MD Primary Care Provider [phone] [place] Colasacco, Frances DO Primary Care Pro vider Unavailable Rosalva Stephen MD Primary Care Provider [phone] Encounter Details Date Type Department Care Team Description 08/07/2016 [facility] [address] [address] Charan Addison MD Social History Tobacco Use Types Packs/Day [...] Telephone Encounter - Caity Hernandez M.A. - 08/07/2016 2:04 PM EDT Last ov with pcp 07/22/16 This med was prescribed for pt 06/[address] Addison please advise * Telephone Encounter - Khari Brown - 08/07/2016 1:41 PM EDTFrom: Deb Malcolm To: Charan Addison MD Sent: 08/07/2016 12:10 PM EDT Subject: Medication Renewal Request Original authorizing provider: MD Deb Wilcox would like a refill of the following medications: cyclobenzaprine (FLEXERIL) 10 MG tablet [Charan Addison MD] Preferred pharmacy: [id number] Comment: Medication renewals requested in this message routed to other providers: tramadol (ULTRAM) 50 MG tablet [Na Reardon MD] documented in this encounter Plan of Treatment Not on file documented as of this encounter Visit Diagnoses Not on filedocumented in this encounter Care Teams Sap Security Architect Relationship Specialty Start Date End Date Frances [...] Medicine 08/05/19 03/05/21 Rosalva Stephen MD [address] [place] [address] PCP - General Internal Medicine 03/06/21 03/11/21 Frances Sung DO PCP - General Internal Medicine 03/12/21 03/31/21 Rosalva Stephen MD [address] [place] [address] PCP - General Internal Medicine 04/01/21 documented as of this encounter
--- OUTSIDE RECORDS SUMMARY | 2025-08-30 14:25 | XMS_ITS | Encounter Summary ---
Author Organization [facility] Address [address] [place] [address] Care Team Providers Care Skein Inspector Name Role Phone Krakowiak Colasacco, Frances DO [...] Unavailable Rosalva Stephen MD Primary Care Provider [phone] Krakowiak Colasacco, Frances DO Primary Care Pro vider Unavailable Rosalva Stephen MD Primary Care Provider [phone] Encounter Details Date Type Department Care Team Description 01/28/2018 Pt. Non Urgent Medical Question Physiatry - [address] [address] Na Reardon MD [address] [place] [address] [place], [place] [id number] Social History Tobacco Use Types Packs/Day Years [...] of this encounter Progress Notes * Susan Neilson M.A. 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 I have had to pop my hips into place since I was a teenager, have torn a ligament in my right ankle, right knee and have had shoulder, knee & spinal surgeries with recurring/chronic worsening joint pain in myknee, spine and shoulder. I'm scheduled for another MRI of my shoulder with Dr Lemos. The Juan-Danlos Syndrome could explain why I'm having so much joint pain but I will have the genetic specialistsend a copy of the results if I do indeed have this syndrome. documented in this encounter Plan of Treatment Not on file documented as of this encounter Visit Diagnoses Not on filedocumented in this encounter Care Teams Skein Inspector Relationship Specialty Start Date End Date Frances Sung DO PCP - General Internal Medicine 02/12/16 04/28/18 Doug Cosby MD PCP - General Internal Medicine 04/29/18 07/11/18 Frances Sung DO PCP - General Internal Medicine 07/12/18 02/24/19 Milton Hummel PCP - General Internal Medicine 02/25/19 06/26/19 Rj Lino MD PCP - General Internal Medicine 06/27/19 07/05/19 Mitlon Hummel PCP - General Internal Medicine 07/06/19 08/04/19 Frances Sung DO PCP - General Internal Medicine 08/05/19 03/05/21 Rosalva Stephen MD [address] [place] [id number] PCP - General Internal Medicine 03/06/21 03/11/21 Frances Sung DO PCP - General Internal Medicine 03/12/21 03/31/21 Rosalva Stephen MD [address] [place] [id number] PCP - General Internal Medicine 04/01/21 documented as of this encounter
--- OUTSIDE RECORDS SUMMARY | 2025-08-30 14:25 | XMS_ITS | Encounter Summary ---
Author Organization [facility] Address [address] [place] [address] Care Team Providers Care Contact Lens Cutter Name Role Phone Hector Morris MD Primary Care Provider Unavail able [facility], [facility] Primary Care Provider Unavailabl [...] Unavailable Rosalva Stephen MD Primary Care Provider [phone] Krakowiak Colasacco, Frances DO Primary Care Pro vider Unavailable Rosalva Stephen MD Primary Care Provider [phone] Encounter Details Date Type Department Care Team Description 10/16/2014 Painting Instructor Report Medical Records [address] [place] [address] Yari Norris PA-C [address] [facility] [address] [place] [address] Social History Tobacco Use Types Packs/Day Years [...] on filedocumented in this encounter Care Teams Contact Lens Cutter Relationship Specialty Start Date End Date Hector Morris MD PCP - General Internal Medicine 10/18/13 01/31/16 [facility], [facility] PCP - General Internal Medicine 02/01/16 02/11/16 [...] Medicine 08/05/19 03/05/21 Rosalva Stephen MD [address] [place] [id number] PCP - General Internal Medicine 03/06/21 03/11/21 Frances Sung, PCP - General Internal Medicine 03/12/21 03/31/21 Rosalva Stephen MD [address] [place] [id number] PCP - General Internal Medicine 04/01/21 documented as of this encounter
--- OUTSIDE RECORDS SUMMARY | 2025-08-30 14:25 | XMS_ITS | Encounter Summary ---
Author Organization [facility] Address [address] [place] [address] Care Team Providers Care Drug Safety Coordinator Name Role Phone Krakowiak Colasacco, Frances DO [...] Unavailable Rosalva Stephen MD Primary Care Provider [phone] Krakowiak Colasacco, Frances DO Primary Care Pro vider Unavailable Rosalva Stephen MD Primary Care Provider [phone] Encounter Details Date Type Department Care Team Description 12/28/2017 [facility] Medical Records [address] [place] [address] Abstract, Provider Social History Tobacco Use Types [...] on filedocumented in this encounter Care Teams Drug Safety Coordinator Relationship Specialty Start Date End Date Frances [...] Internal Medicine 08/05/19 03/05/21 Rosalva Stephen MD [address] [place] [address] [id number] PCP - General Internal Medicine 03/06/21 03/11/21 Frances Sung, PCP - General Internal Medicine 03/12/21 03/31/21 Rosalva Stephen MD [address] [place] [address] [id number] PCP - General Internal Medicine 04/01/21 documented as of this encounter
--- OUTSIDE RECORDS SUMMARY | 2025-08-30 14:25 | XMS_ITS | Encounter Summary ---
Author Organization [facility] Address [address] [place] [address] Care Team Providers Care Chef Teacher Name Role Phone Hector Morris MD Primary Care Provider Unavail able [facility], [facility] Primary Care Provider Unavailabl e Krakowiak [...] Unavailable Rosalva Stephen MD Primary Care Provider [phone] Krakowiak Colasacco, Frances DO Primary Care Pro vider Unavailable Rosalva Stephen MD Primary Care Provider [phone] Encounter Details Date Type Department Care Team Description 07/19/2015 [facility] Medical Records [address] [place] [address] Igor Rdz MD Social History Tobacco Use Types Packs/Day [...] filedocumented in this encounter Care Teams Chef Teacher Relationship Specialty Start Date End Date Hector Morris MD PCP - General Internal Medicine 10/18/13 01/31/16 [facility], Pcp PCP - General Internal Medicine 02/01/16 02/11/16 [...] Medicine 08/05/19 03/05/21 Rosalva Stephen MD [address] [place] [phone] PCP - General Internal Medicine 03/06/21 03/11/21 Frances Sung, PCP - General Internal Medicine 03/12/21 03/31/21 Rosalva Stephen MD [address] [place] [id number] PCP - General Internal Medicine 04/01/21 documented as of this encounter
--- OUTSIDE RECORDS SUMMARY | 2025-08-30 14:25 | XMS_ITS | Encounter Summary ---
Author Organization [facility] Address [address] [place] [address] Care Team Providers Care Rod And Tube Straightener Name Role Phone Krakowiak Colasacco, Frances DO [...] Unavailable Rosalva Stephen MD Primary Care Provider [phone] Krakowiak Colasacco, Frances DO Primary Care Pro vider Unavailable Rosalva Stephen MD Primary Care Provider [phone] Encounter Details Date Type Department Care Team Description 03/19/2016 [facility] Report Medical Records [address] [place] [address] Jason Dillon I., PH.D Social History Tobacco Use Types Packs/Day Years [...] on filedocumented in this encounter Care Teams Rod And Tube Straightener Relationship Specialty Start Date End Date Frances Sung DO PCP - General Internal Medicine 02/12/16 04/28/18 Doug Cosby MD PCP - General Internal Medicine 04/29/18 07/11/18 Fracnes Sung DO PCP - General Internal Medicine 07/12/18 02/24/19 Milton Hummel PCP - General Internal Medicine 02/25/19 06/26/19 Rj Lino MD PCP - General Internal Medicine 06/27/19 07/05/19 Milton Hummel PCP - General Internal Medicine 07/06/19 08/04/19 Frances Sung, PCP - General Internal Medicine 08/05/19 03/05/21 Rosalva Stephen MD [address] [place] [address] [id number] PCP - General Internal Medicine 03/06/21 03/11/21 Frances Sung DO PCP - General Internal Medicine 03/12/21 03/31/21 Rosalva Stephen MD [address] [place] [address] [id number] PCP - General Internal Medicine 04/01/21 documented as of this encounter
--- OUTSIDE RECORDS SUMMARY | 2025-08-30 14:25 | XMS_ITS | Encounter Summary ---
Author Organization [facility] Address [address] [place] [address] Care Team Providers Care Blade Boner Name Role Phone Krakowiak Colasacco, Frances DO [...] Unavailable Rosalva Stephen MD Primary Care Provider [phone] Krakowiak Colasacco, Frances DO Primary Care Pro vider Unavailable Rosalva Stephen MD Primary Care Provider [phone] Encounter Details Date Type Department Care Team Description 01/28/2018 Pt. Non Urgent Medic al Question Adult Medicine [address] [address] Krakowiak Colasacco, Frances, DO Social History Tobacco Use Types Packs/Day [...] as of this encounter Progress Notes * Caity Hernandez M.A. - 01/28/2018 8:21 AM EDTFrom: Deb Malcolm To: Frances Gaytan DO Sent: 01/28/2018 8:19 AM EDT Subject: sent message I sent a message regarding being tested for Juan-Danlos syndrome and haven't heard a response. I also woke up this morning with pink eye. Can I get a prescription to treat it. It's redder than my order eye and there is green discharge coming out of it. documented in this encounter Plan of Treatment Not on file documented as of this encounter Visit Diagnoses Not on filedocumented in this encounter Care Teams Blade Boner Relationship Specialty Start Date End Date Frances [...] Internal Medicine 08/05/19 03/05/21 Rosalva Stephen MD [address] [place] [id number] PCP - General Internal Medicine 03/06/21 03/11/21 Frances Sung DO PCP - General Internal Medicine 03/12/21 03/31/21 Rosalva Stephen MD [address] [place] [phone] PCP - General Internal Medicine 04/01/21 documented as of this encounter
--- OUTSIDE RECORDS SUMMARY | 2025-08-30 14:25 | XMS_ITS | Encounter Summary ---
Author Organization [facility] Address [address] [place] [address] Care Team Providers Care Cuprous Chloride Helper Name Role Phone Frances Sung DO Primary Care Pro vider Unavailable Doug Cosby MD Primary Care Provider Unavail able Sharla WestoMarvinFrances DO Primary Care Pro vider Unavailable Milton Hummel Primary Care Provider Unav ailable Rj Lino MD Primary Care Provider Unava ilable Milton Hummel Primary Care Provider Unav ailable Sharla Westo, Frances DO Primary Care Pro vider Unavailable Rosalva Stephen MD Primary Care Provider [phone] Sharla WestoMarvinFrances DO Primary Care Pro vider Unavailable Rosalva Stephen MD Primary Care Provider [phone] Reason for Referral * EXTERNAL (Routine) - Authorized/Booked Specialty Diagnoses / Procedures Referred By Hector biggs Referred To Contact Neurosurgery Procedures REFERRAL TO NEUROSURGERY Frances Sung DO [address] [place] [address] Hans Rios MD [address] [place] [address] [place] [address] Referral ID Status Reason Start Date Expiration Date V isits Requested Visits Authorized SEE NOTE Authorized/B ooked 01/05/2018 04/09/2018 1 1 Encounter Details Date Type Department Care Team Description 01/05/2018 Orders Only Adult Medicine [address] [place] [address] Frances Sung, Social History Tobacco Use Types Packs/Day Years [...] on filedocumented in this encounter Care Teams Cuprous Chloride Helper Relationship Specialty Start Date End Date Frances [...] Internal Medicine 08/05/19 03/05/21 Rosalva Stephen MD [address] [place] [phone] PCP - General Internal Medicine 03/06/21 03/11/21 Frances Sung, DO PCP - General Internal Medicine 03/12/21 03/31/21 Rosalva Stephen MD [address] [place] [address] [id number] PCP - General Internal Medicine 04/01/21 documented as of this encounter
--- OUTSIDE RECORDS SUMMARY | 2025-08-30 14:26 | XMS_ITS | Encounter Summary ---
Author Organization [facility] Address [address] [place] [address] Care Team Providers Care Accounts Payable Processor Name Role Phone Krakowiak Colasacco, Frances DO [...] Unavailable Rosalva Stephen MD Primary Care Provider [phone] Krakowiak Colasacco, Frances DO Primary Care Pro vider Unavailable Rosalva Stephen MD Primary Care Provider [phone] Encounter Details Date Type Department Care Team Description 12/19/2016 Hospital Medical Records [address] [place] [address] Henry Lemos MD Social History Tobacco Use Types Packs/Day [...] on filedocumented in this encounter Care Teams Accounts Payable Processor Relationship Specialty Start Date End Date Frances [...] Medicine 08/05/19 03/05/21 Rosalva Stephen MD [address] [place] [address] PCP - General Internal Medicine 03/06/21 03/11/21 Frances Sung DO PCP - General Internal Medicine 03/12/21 03/31/21 Rosalva Stephen MD [address] [place] [id number] PCP - General Internal Medicine 04/01/21 documented as of this encounter
--- OUTSIDE RECORDS SUMMARY | 2025-08-30 14:26 | XMS_ITS | Encounter Summary ---
Author Organization [facility] Address [address] [place] [address] Care Team Providers Care Manager Underwriting Name Role Phone Krakowiak Colasacco, Frances DO [...] Unavailable Rosalva Stephen MD Primary Care Provider [phone] Krakowiak Colasacco, Frances DO Primary Care Pro vider Unavailable Rosalva Stephen MD Primary Care Provider [phone] Encounter Details Date Type Department Care Team Description [facility] [address] [place] [id number] Abstract, Provider Social History Tobacco Use Types [...] filedocumented in this encounter Care Teams Manager Underwriting Relationship Specialty Start Date End Date Frances [...] Medicine 08/05/19 03/05/21 Rosalva Stephen MD [address] [place] [address] [id number] PCP - General Internal Medicine 03/06/21 03/11/21 Frances Sung, PCP - General Internal Medicine 03/12/21 03/31/21 Rosalva Stephen MD [address] [place] [address] [phone] PCP - General Internal Medicine 04/01/21 documented as of this encounter
--- OUTSIDE RECORDS SUMMARY | 2025-08-30 14:26 | XMS_ITS | Encounter Summary ---
Author Organization [facility] Address [address] [place] [address] Care Team Providers Care Shift Stacker Name Role Phone Krakowiak Colasacco, Frances DO [...] Unavailable Rosalva Stephen MD Primary Care Provider [phone] Krakowiak Colasacco, Frances DO Primary Care Pro vider Unavailable Rosalva Stephen MD Primary Care Provider [phone] Encounter Details Date Type Department Care Team Description 02/17/2018 Refill Physiatry - [address] [address] Sixto Olmedo DO Social History Tobacco Use [...] Telephone Encounter - Vicki Burr M.A. - 02/17/2018 3:01 PM EDT Script in ppu, per pt Dr. Olmedo was the one who prescribed 2 extra pills for her that day and she states you were out of the office. I told her to mention it on her next visit with you * Telephone Encounter - Na Reardon MD - 02/17/2018 2:05 PM EDT This is the LAST and ONE time I am allowing an early refill. I WAS NOT THE ONE who allowed her to take 2 extra pills for an MRI that was ordered by someone else. NEXT TIME SOMEONE TELLS HER SHE CAN TAKE EXTRA PILLS SHE HAS TO LET US KNOW CONSTANCE. Otherwise it will be a violation of contract. [facility] report reviewed today for Deb Malcolm * Telephone Encounter - Vicki Burr M.A. - 02/17/2018 1:29 PM EDT Please see patient's note below Contracted/needs update Last ov 12/18/17 Last refill 01/26/18 Next ov 02/23/18 Lab Results Component Value Date URINEOXYCOD POSITIVE 10/13/2017 URBENZO NEGATIVE 10/13/2017 URAMPHETAMIN NEGATIVE 10/13/2017 URMARIJUANA NEGATIVE 10/13/2017 UROPIATES NEGATIVE 10/13/2017 URBARBITUATE NEGATIVE 10/13/2017 URCOCAINE NEGATIVE 10/13/2017 HYDROCODONE Negative 02/19/2017 [facility] will be printed * Telephone Encounter - Susan Nielson M.A. - 02/17/2018 1:26 PM EDTFrom: Deb Malcolm To: Sixto Olmedo DO Sent: 02/17/2018 1:23 PM EDT Subject: Medication Renewal Request Original authorizing provider: DO Deb Arceo would like a refill of the following medications: oxycodone-acetaminophen (PERCOCET) 5-325 MG per tablet [Sixto Olmedo DO] Preferred pharmacy: [id number] - [place], [place] - [address] Comment: I was allowed 2 additional pills after the MRI with angiogram so I will need the refill Thursday instead of Thursday. Can the prescription be dated for Thursday please & it'll be easier if I can pick it up on Thursday so I won't have to bring my son in to the office please? Thank you. documented in this encounter Plan of Treatment Not on file documented as of this encounter Visit Diagnoses Diagnosis Chronic left shoulder pain Pain in joint, shoulder region documented in this encounter Care Teams Shift Stacker Relationship Specialty Start Date End Date Frances [...] Internal Medicine 08/05/19 03/05/21 Rosalva Stephen MD [address] [place] [id number] PCP - General Internal Medicine 03/06/21 03/11/21 Frances Sung DO PCP - General Internal Medicine 03/12/21 03/31/21 Rosalva Stephen MD [address] [place] [phone] PCP - General Internal Medicine 04/01/21 documented as of this encounter
--- OUTSIDE RECORDS SUMMARY | 2025-08-30 14:26 | XMS_ITS | Encounter Summary ---
Author Organization [facility] Address [address] [place] [address] Care Team Providers Care Kelp Gatherer Name Role Phone Krakowiak Colasacco, Frances DO [...] Unavailable Rosalva Stephen MD Primary Care Provider [phone] Krakowiak Colasacco, Frances DO Primary Care Pro vider Unavailable Rosalva Stephen MD Primary Care Provider [phone] Encounter Details Date Type Department Care Team Description 02/22/2018 Frame Table Operator Helper Report Medical Records [address] [place] [address] Kunal Villegas Social History Tobacco Use Types Packs/Day Years [...] on filedocumented in this encounter Care Teams Kelp Gatherer Relationship Specialty Start Date End Date Krakowiak [...] Internal Medicine 08/05/19 03/05/21 Rosalva Stephen MD [address] [place] [address] [id number] PCP - General Internal Medicine 03/06/21 03/11/21 Frances Sung, PCP - General Internal Medicine 03/12/21 03/31/21 Rosalva Stephen MD [address] [place] [address] [id number] PCP - General Internal Medicine 04/01/21 documented as of this encounter
--- OUTSIDE RECORDS SUMMARY | 2025-08-30 14:26 | XMS_ITS | Encounter Summary ---
Author Organization [facility] Address [address] [place] [address] Care Team Providers Care Metal Fabricating Inspector Name Role Phone Krakowiak Colasacco, Frances [...] Unavailable Rosalva Stephen MD Primary Care Provider [phone] Krakowiak Colasacco, Frances DO Primary Care Pro vider Unavailable Rosalva Stephen MD Primary Care Provider [phone] Encounter Details Date Type Department Care Team Description 11/06/2016 Controlled Substance Plan Medical Records [address] [place] [address] Abstract, Provider Social History Tobacco Use Types [...] on filedocumented in this encounter Care Teams Metal Fabricating Inspector Relationship Specialty Start Date End Date [...] Medicine 08/05/19 03/05/21 Rosalva Stephen MD [address] [place] [address] [id number] PCP - General Internal Medicine 03/06/21 03/11/21 Frances Sung, PCP - General Internal Medicine 03/12/21 03/31/21 Rosalva Stephen MD [address] [place] [address] [phone] PCP - General Internal Medicine 04/01/21 documented as of this encounter
--- OUTSIDE RECORDS SUMMARY | 2025-08-30 14:26 | XMS_ITS | Encounter Summary ---
Author Organization [facility] Address [address] [place] [address] Care Team Providers Care Spooler Operator Name Role Phone Krakowiak Colasacco, Frances DO [...] Unavailable Rosalva Stephen MD Primary Care Provider [phone] Krakowiak Colasacco, Frances DO Primary Care Pro vider Unavailable Rosalva Stephen MD Primary Care Provider [phone] Encounter Details Date Type Department Care Team Description 10/20/2016 Plant Maintenance Engineer Report Medical Records [address] [place] [address] [facility] Social History Tobacco Use Types Packs/Day Years [...] on filedocumented in this encounter Care Teams Spooler Operator Relationship Specialty Start Date End Date Krakowiak [...] Internal Medicine 08/05/19 03/05/21 Rosalva Stephen MD [address] [place] [id number] PCP - General Internal Medicine 03/06/21 03/11/21 Frances Sung, PCP - General Internal Medicine 03/12/21 03/31/21 Rosalva Stephen MD [address] [place] [address] [phone] PCP - General Internal Medicine 04/01/21 documented as of this encounter
--- OUTSIDE RECORDS SUMMARY | 2025-08-30 14:26 | XMS_ITS | Encounter Summary ---
Author Organization [facility] Address [address] [place] [address] Care Team Providers Care Agriculture Worker Name Role Phone Krakowiak Colasacco, Frances DO [...] Unavailable Rosalva Stephen MD Primary Care Provider [phone] Krakowiak Colasacco, Frances DO Primary Care Pro vider Unavailable Rosalva Stephen MD Primary Care Provider [phone] Encounter Details Date Type Department Care Team Description 03/01/2018 Claims Customer Service Representative Report Medical Records [address] [place] [phone] Joseluis Henson MD Social History Tobacco Use Types Packs/Day [...] on filedocumented in this encounter Care Teams Agriculture Worker Relationship Specialty Start Date End Date [...] Internal Medicine 08/05/19 03/05/21 Rosalva Stephen MD [address] [place] [address] [phone] PCP - General Internal Medicine 03/06/21 03/11/21 Frances Sung DO PCP - General Internal Medicine 03/12/21 03/31/21 Rosalva Stephen MD [address] [place] [address] [phone] PCP - General Internal Medicine 04/01/21 documented as of this encounter
--- OUTSIDE RECORDS SUMMARY | 2025-08-30 14:26 | XMS_ITS | Encounter Summary ---
Author Organization [facility] Address [address] [place] [address] Care Team Providers Care Inventory Associate Name Role Phone Krakowiak Colasacco, Frances DO [...] Unavailable Rosalva Stephen MD Primary Care Provider [phone] Krakowiak Colasacco, Frances DO Primary Care Pro vider Unavailable Rosalva Stephen MD Primary Care Provider [phone] Encounter Details Date Type Department Care Team Description 03/16/2018 Refill Physiatry - [address] [phone] Na Reardon MD [address] [place] [address] Dr [facility] [place] [id number] Social History Tobacco Use Types Packs/Day Years [...] Telephone Encounter - Susan Nielson M.A. - 03/18/2018 2:53 PM EDT Script to patient pharmacy picking technician. * Telephone Encounter - Na Reardon MD - 03/17/2018 11:18 AM EDT MassPAT report reviewed today for Deb Malcolm * Telephone Encounter - Susan Nielson M.A. - 03/16/2018 9:00 AM EDT Contracted Last ov 02/23/18 Last refill 02/17/18 Next ov 03/25/18 Lab Results Component Value Date URINEOXYCOD POSITIVE 10/13/2017 URBENZO NEGATIVE 10/13/2017 URAMPHETAMIN NEGATIVE 10/13/2017 URMARIJUANA NEGATIVE 10/13/2017 UROPIATES NEGATIVE 10/13/2017 URBARBITUATE NEGATIVE 10/13/2017 URCOCAINE NEGATIVE 10/13/2017 HYDROCODONE Negative 02/19/2017 Mass pat printed for review * Telephone Encounter - Susan Nielson M.A. - 03/16/2018 8:56 AM EDTFrom: Deb Malcolm To: Na Reardon MD Sent: 03/16/2018 8:25 AM EDT Subject: Medication Renewal Request Original authorizing provider: MD Deb Gomes would like a refill of the following medications: oxycodone-acetaminophen (PERCOCET) 5-325 MG per tablet [Na Reardon MD] Preferred pharmacy: [id number] [place], [place] - [address], [address] [facility] Comment: medication is due ThursdayMarch 25 documented in this encounter Plan of Treatment Not on file documented as of this encounter Visit Diagnoses Diagnosis Chronic left shoulder pain Pain in joint, shoulder region documented in this encounter Care Teams Inventory Associate Relationship Specialty Start Date End Date Frances [...] Medicine 08/05/19 03/05/21 Rosalva Stephen MD [address] [place] [id number] PCP - General Internal Medicine 03/06/21 03/11/21 Frances Sung DO PCP - General Internal Medicine 03/12/21 03/31/21 Rosalva Stephen MD [address] [place] [address] PCP - General Internal Medicine 04/01/21 documented as of this encounter
--- OUTSIDE RECORDS SUMMARY | 2025-08-30 14:26 | XMS_ITS | Encounter Summary ---
Author Organization [facility] Address [address] [place] [address] Care Team Providers Care Domestic Travel Consultant Name Role Phone Krakowiak Colasacco, Frances DO Primary Care Pro vider Unavailable Doug oCsby MD Primary Care Provider Unavail able Krakowiak Colasacco, Frances DO Primary Care Pro vider Unavailable Milton Hummel Primary Care Provider Unav ailable Rj Lino MD Primary Care Provider Unava ilable Milton Hummel Primary Care Provider Unav ailable Krakowiak Colasacco, Frances DO Primary Care Pro vider Unavailable Rosalva Stephen MD Primary Care Provider [phone] Krakowiak Colasacco, Frances DO Primary Care Pro vider Unavailable Rosalva Stephen MD Primary Care Provider [phone] Encounter Details Date Type Department Care Team Description 11/10/2016 [facility] Medical Records [address] [place] [id number] Abstract, Provider Social History Tobacco Use Types [...] on filedocumented in this encounter Care Teams Domestic Travel Consultant Relationship Specialty Start Date End Date [...] Internal Medicine 08/05/19 03/05/21 Rosalva Stephen MD [address] [place] [address] [phone] PCP - General Internal Medicine 03/06/21 03/11/21 Frances Sung, PCP - General Internal Medicine 03/12/21 03/31/21 Rosalva Stephen MD [address] [place] [address] [id number] PCP - General Internal Medicine 04/01/21 documented as of this encounter
--- OUTSIDE RECORDS SUMMARY | 2025-08-30 14:26 | XMS_ITS | Encounter Summary ---
Author Organization [facility] Address [address] [place] [address] Care Team Providers Care Community Outreach Director Name Role Phone Krakowiak Colasacco, Frances DO [...] Unavailable Rosalva Stephen MD Primary Care Provider [phone] Krakowiak Colasacco, Frances DO Primary Care Pro vider Unavailable Rosalva Stephen MD Primary Care Provider [phone] Encounter Details Date Type Department Care Team Description 10/08/2016 Brake Tester Report Medical Records [address] [place] [address] [facility] Social History Tobacco Use Types Packs/Day [...] on filedocumented in this encounter Care Teams Community Outreach Director Relationship Specialty Start Date End Date Krakowiak Colasacco, Frances, PCP - General Internal Medicine 02/12/16 04/28/18 Doug Cosyb MD PCP - General Internal Medicine 04/29/18 07/11/18 Frances Sung, PCP - General Internal Medicine 07/12/18 02/24/19 Milton Hummel PCP - General Internal Medicine 02/25/19 06/26/19 Rj Lino MD PCP - General Internal Medicine 06/27/19 07/05/19 Milton Hummel PCP - General Internal Medicine 07/06/19 08/04/19 Frances Sung, PCP - General Internal Medicine 08/05/19 03/05/21 Rosalva Stephen MD [address] [place] [id number] PCP - General Internal Medicine 03/06/21 03/11/21 Frances Sung, PCP - General Internal Medicine 03/12/21 03/31/21 Rosalva Stephen MD [address] [place] [address] [phone] PCP - General Internal Medicine 04/01/21 documented as of this encounter
--- OUTSIDE RECORDS SUMMARY | 2025-08-30 14:27 | XMS_ITS | Encounter Summary ---
Author Organization [facility] Address [address] [place] [address] Care Team Providers Care Syrup Shed Supervisor Name Role Phone Rosalva Stephen MD Primary Care Provider [phone] Encounter Details Date Type Department Care Team Description 01/14/2024 Pump Attendant Report Medical Records [address] [place] [address] Sixto Olmedo DO Social History Tobacco Use [...] on filedocumented in this encounter Care Teams Syrup Shed Supervisor Relationship Specialty Start Date End Date Rosalva Stephen MD [address] [place], [place] [phone] PCP - General Internal Medicine 04/01/21 documented as of this encounter
--- OUTSIDE RECORDS SUMMARY | 2025-08-30 14:27 | XMS_ITS | Encounter Summary ---
Author Organization [facility] Address [address] [place] [address] Care Team Providers Care Packaging Mechanic Name Role Phone Frances Sung DO Primary Care Pro vider Unavailable Rosalva Stephen MD Primary Care Provider [phone] Frances Sung DO Primary Care Pro vider Unavailable Rosalva Stephen MD Primary Care Provider [phone] Encounter Details Date Type Department Care Team Description 11/30/2019 Release of Information Medical Records [address] [place] [address] Abstract, Provider Social History Tobacco Use Types [...] on filedocumented in this encounter Care Teams Packaging Mechanic Relationship Specialty Start Date End Date Frances Sung DO PCP - General Internal Medicine 08/05/19 03/05/21 Rosalva Stephen MD [address] [place] [phone] PCP - General Internal Medicine 03/06/21 03/11/21 Frances Sung DO PCP - General Internal Medicine 03/12/21 03/31/21 Rosalva Stephen MD [address] [place] [id number] PCP - General Internal Medicine 04/01/21 documented as of this encounter
--- OUTSIDE RECORDS SUMMARY | 2025-08-30 14:27 | XMS_ITS | Encounter Summary ---
Author Organization [facility] Address [address] [place] [address] Care Team Providers Care Chemical Pathologist Name Role Phone Krakowiak Colasacco, Frances DO [...] Unavailable Rosalva Stephen MD Primary Care Provider [phone] Krakowiak Colasacco, Frances DO Primary Care Pro vider Unavailable Rosalva Stephen MD Primary Care Provider [phone] Encounter Details Date Type Department Care Team Description 10/07/2017 [facility] Medical Records [address] [place] [address] Abstract, Provider Social History Tobacco Use Types [...] on filedocumented in this encounter Care Teams Chemical Pathologist Relationship Specialty Start Date End Date Frances Sung, PCP - General Internal Medicine 02/12/16 04/28/18 Doug Cosby MD PCP - General Internal Medicine 04/29/18 07/11/18 Frances Sung, PCP - General Internal Medicine 07/12/18 02/24/19 iMlton Hummel PCP - General Internal Medicine 02/25/19 06/26/19 Rj Lino MD PCP - General Internal Medicine 06/27/19 07/05/19 Milton Hummel PCP - General Internal Medicine 07/06/19 08/04/19 Frances Sung, PCP - General Internal Medicine 08/05/19 03/05/21 Rosalva Stephen MD [address] [place] [address] [id number] PCP - General Internal Medicine 03/06/21 03/11/21 Frances Sung, PCP - General Internal Medicine 03/12/21 03/31/21 Rosalva Stephen MD [address] [place] [address] [id number] PCP - General Internal Medicine 04/01/21 documented as of this encounter
--- OUTSIDE RECORDS SUMMARY | 2025-08-30 14:27 | XMS_ITS | Encounter Summary ---
Author Organization [facility] Address [address] [place] [address] Care Team Providers Care Bronzer Name Role Phone Frances Sung DO Primary Care Pro vider Unavailable Rosalva Stephen MD Primary Care Provider [phone] Frances Sung DO Primary Care Pro vider Unavailable Rosalva Stephen MD Primary Care Provider [phone] Encounter Details Date Type Department Care Team Description 12/07/2019 Refill Physiatry - [address] [address] Na Reardon MD [address] [place] [address] Dr [facility], [place] [id number] Social History Tobacco Use Types Packs/Day Years [...] Telephone Encounter - Elizabeth Crowe M.A. - 12/09/2019 11:46 AM EST Rx picked up 12/09/2019 * Telephone Encounter - Na Reardon MD - 12/09/2019 11:35 AM EST MassPAT report reviewed today for Deb Malcolm * Telephone Encounter - Elizabeth Crowe M.A. - 12/08/2019 8:51 AM EST Last ov 11/25/2019 Next ov 02/23/2020 Last refill 11/10/2019 Lab Results Component Value Date URBENZO NONE DETECTED 07/06/2019 UROPIATES POSITIVE 07/06/2019 URBARBITUATE NONE DETECTED 07/06/2019 PAINAMPHETAM POSITIVE 07/06/2019 PAINCOCAINE NONE DETECTED 07/06/2019 PAINCANNABIN POSITIVE 07/06/2019 Contracted MassPAT documented in this encounter Plan of Treatment Not on file documented as of this encounter Visit Diagnoses Diagnosis Chronic left shoulder pain Pain in joint, shoulder region History of cervical spinal surgery Personal history of surgery to other organs Chronic pain of right knee documented in this encounter Care Teams Bronzer Relationship Specialty Start Date End Date Frances Sung DO PCP - General Internal Medicine 08/05/19 03/05/21 Rosalva Stephen MD [address] [place] [phone] PCP - General Internal Medicine 03/06/21 03/11/21 Frances Sung DO PCP - General Internal Medicine 03/12/21 03/31/21 Rosalva Stephen MD [address] [place] [id number] PCP - General Internal Medicine 04/01/21 documented as of this encounter
--- OUTSIDE RECORDS SUMMARY | 2025-08-30 14:27 | XMS_ITS | Encounter Summary ---
Author Organization [facility] Address [address] [place] [address] Care Team Providers Care Prepared Foods Team Leader Name Role Phone Frances Sung DO Primary Care Pro vider Unavailable Milton Hummel Primary Care Provider Unav ailable Rj Lino MD Primary Care Provider Unava ilable Milton Hummel Primary Care Provider Unav ailable Frances Sung DO Primary Care Pro vider Unavailable Rosalva Stephen MD Primary Care Provider [phone] Frances Sung DO Primary Care Pro vider Unavailable Rosalva Stephen MD Primary Care Provider [phone] Encounter Details Date Type Department Care Team Description 11/10/2018 [facility] Medical Records [address] [place] [address] Abstract, Provider Social History Tobacco Use Types [...] on filedocumented in this encounter Care Teams Prepared Foods Team Leader Relationship Specialty Start Date End Date Frances Sung DO PCP - General Internal Medicine 07/12/18 02/24/19 Milton Hummel PCP - General Internal Medicine 02/25/19 06/26/19 Rj Lino MD PCP - General Internal Medicine 06/27/19 07/05/19 Milton Hummel PCP - General Internal Medicine 07/06/19 08/04/19 Frances Sung DO PCP - General Internal Medicine 08/05/19 03/05/21 Rosalva Stephen MD [address] [place] [address] [id number] PCP - General Internal Medicine 03/06/21 03/11/21 Frances Sung DO PCP - General Internal Medicine 03/12/21 03/31/21 Rosalva Stephen MD [address] [place] [address] [id number] PCP - General Internal Medicine 04/01/21 documented as of this encounter
--- OUTSIDE RECORDS SUMMARY | 2025-08-30 14:27 | XMS_ITS | Encounter Summary ---
Author Organization [facility] Address [address] [place] [address] Care Team Providers Care Chick Room Supervisor Name Role Phone Rosalva Stephen MD Primary Care Provider [phone] Reason for Visit * Reason Onset Date Comments Faxed Order 02/02/2023 [facility] 022-09/07/2022 Encounter Details Date Type Department Care Team Description 02/02/2023 Telephone Adult Medicine [address] [address] Rosalva Stephen MD [address] [place] [address] [phone] Faxed Order ([facility] 07/10/2022-09/07/2022) Social History Tobacco Use Types Packs/Day [...] on filedocumented in this encounter Care Teams Chick Room Supervisor Relationship Specialty Start Date End Date Rosalva Stephen MD [address] [place] [phone] PCP - General Internal Medicine 04/01/21 documented as of this encounter
--- OUTSIDE RECORDS SUMMARY | 2025-08-30 14:27 | XMS_ITS | Encounter Summary ---
Author Organization [facility] Address [address] [place] [address] Care Team Providers Care Satellite Instruction Facilitator Name Role Phone Krakowiak Colasacco, Frances DO [...] Unavailable Rosalva Stephen MD Primary Care Provider [phone] Krakowiak Colasacco, Frances DO Primary Care Pro vider Unavailable Rosalva Stephen MD Primary Care Provider [phone] Encounter Details Date Type Department Care Team Description 06/03/2017 [facility] Medical Records [address] [place] [address] Abstract, Provider Social History Tobacco Use Types [...] on filedocumented in this encounter Care Teams Satellite Instruction Facilitator Relationship Specialty Start Date End Date Frances Sung, PCP - General Internal Medicine 02/12/16 04/28/18 Doug Cosby MD PCP - General Internal Medicine 04/29/18 07/11/18 Frances Sugn, PCP - General Internal Medicine 07/12/18 02/24/19 Milton Hummel PCP - General Internal Medicine 02/25/19 06/26/19 Rj Lino MD PCP - General Internal Medicine 06/27/19 07/05/19 Milton Hummel PCP - General Internal Medicine 07/06/19 08/04/19 Frances Sung, PCP - General Internal Medicine 08/05/19 03/05/21 Rosalva Stephen MD [address] [place] [address] [phone] PCP - General Internal Medicine 03/06/21 03/11/21 Frances Sung, PCP - General Internal Medicine 03/12/21 03/31/21 Rosalva Stephen MD [address] [place] [address] [phone] PCP - General Internal Medicine 04/01/21 documented as of this encounter
--- OUTSIDE RECORDS SUMMARY | 2025-08-30 14:27 | XMS_ITS | Encounter Summary ---
Author Organization [facility] Address [address] [place] [address] Care Team Providers Care Electric Solderer Name Role Phone Sharla Gaytan, Frances DO [...] Unavailable Rosalva Stephen MD Primary Care Provider [phone] Encounter Details Date Type Department Care Team Description 11/23/2018 Pt. Non Urgent Medical Question Physiatry - [address] [address] Na Reardon MD [address] [place] [address] Dr [place] [id number] Social History Tobacco Use Types Packs/Day Years [...] Progress Notes * Alyssa Lyon L.P.N. - 11/24/2018 7:24 AM ESTFrom: Deb Malcolm To: Na Reardon MD Sent: 11/23/2018 4:45 PM EST Subject: epidural I would like to try the epidural. Can I also see specialist? Would I be referred to the same Dr. Agarwal or Dr. Domingo at [facility]? documented in this encounter Plan of Treatment Not on file documented as of this encounter Visit Diagnoses Not on filedocumented in this encounter Care Teams Electric Solderer Relationship Specialty Start Date End Date Frances Sung DO PCP - General Internal Medicine 07/12/18 02/24/19 Milton Hummel PCP - General Internal Medicine 02/25/19 06/26/19 Rj Lino MD PCP - General Internal Medicine 06/27/19 07/05/19 Milton Hummel PCP - General Internal Medicine 07/06/19 08/04/19 Frances Sung DO PCP - General Internal Medicine 08/05/19 03/05/21 Rosalva Stephen MD [address] [place] [address] [phone] PCP - General Internal Medicine 03/06/21 03/11/21 Frances Sung DO PCP - General Internal Medicine 03/12/21 03/31/21 Rosalva Stephen MD [address] [place] [id number] PCP - General Internal Medicine 04/01/21 documented as of this encounter
--- OUTSIDE RECORDS SUMMARY | 2025-08-30 14:27 | XMS_ITS | Encounter Summary ---
Author Organization [facility] Address [address] [place] [address] Care Team Providers Care Service Director Name Role Phone Sharla Gaytan, Frances DO Primary Care Pro vider Unavailable Milton Hummel Primary Care Provider Unav ailRj Pyle MD Primary Care Provider Unava ilMilton Alicea Primary Care Provider Unav ailable Denicekojob Colpriyankacco, Frances DO Primary Care Pro vider Unavailable Rosalva Stephen MD Primary Care Provider [phone] Krakowisol Colasacco, Frances DO Primary Care Pro vider Unavailable Rosalva Stephen MD Primary Care Provider [phone] Reason for Visit * Reason Comments E-prescribe Rx Request Encounter Details Date Type Department Care Team Description 12/15/2018 Refill Physiatry - [address] [id number] Na Reardon MD [address] [place] [address] Dr ARTI [place] [id number] E-prescribe Rx Request Social History Tobacco Use [...] Telephone Encounter - Susan Nielson M.A. - 12/17/2018 9:35 AM EST I called patient and she said she thought the trigger point appointments were cancelled. She statesshe does not wish to reschedule them at this time because she does not feel she needs them. * Telephone Encounter - Susan Nielson M.A. - 12/16/2018 10:10 AM EST Message left for patient to call * Telephone Encounter - Na Reardon MD - 12/16/2018 9:08 AM EST Patient no showed twice to trigger point injection. I am guessing she did not need it and feeling better? * Telephone Encounter - Susan Nielson M.A. - 12/15/2018 2:20 PM EST Last ov 11/17/18 Last refill 11/17/18 Next ov 12/16/18 documented in this encounter Plan of Treatment Not on file documented as of this encounter Visit Diagnoses Not on filedocumented in this encounter Care Teams Service Director Relationship Specialty Start Date End Date Frances Sung DO PCP - General Internal Medicine 07/12/18 02/24/19 Milton Hummel PCP - General Internal Medicine 02/25/19 06/26/19 Rj Lino MD PCP - General Internal Medicine 06/27/19 07/05/19 Milton Hummel PCP - General Internal Medicine 07/06/19 08/04/19 Frances Sung DO PCP - General Internal Medicine 08/05/19 03/05/21 Rosalva Stephen MD [address] [place] [id number] PCP - General Internal Medicine 03/06/21 03/11/21 Frances Sung DO PCP - General Internal Medicine 03/12/21 03/31/21 Rosalva Stephen MD [address] [place] [address] PCP - General Internal Medicine 04/01/21 documented as of this encounter
--- OUTSIDE RECORDS SUMMARY | 2025-08-30 14:27 | XMS_ITS | Encounter Summary ---
Author Organization [facility] Address [address] [place] [address] Care Team Providers Care Induction Coordination Power Engineer Name Role Phone Krakowiak Colpriyankacco, Frances DO Primary Care Pro vider Unavailable Doug Cosby MD Primary Care Provider Unavail able Krakowiak Colasacco, Frances DO Primary Care Pro vider Unavailable Milton Hummel Primary Care Provider Unav ailable Rj Lino MD Primary Care Provider Unava ilable Milton Hummel Primary Care Provider Unav ailable Krakowiak Colasacco, Frances DO Primary Care Pro vider Unavailable Rosalva Stephen MD Primary Care Provider [phone] Krakowiak Colasacco, Frances DO Primary Care Pro vider Unavailable Rosalva Stephen MD Primary Care Provider [phone] Reason for Visit * Reason Onset Date Comments Medication Review 02/05/2017 Encounter Details Date Type Department Care Team Description 02/05/2017 Telephone Adult [address] [address] Krakowiak Coltwylao, Frances, Medication Review Social History Tobacco Use Types Packs/Day Years [...] encounter Miscellaneous Notes * Telephone Encounter - Kristy Christianson - 02/05/2017 4:15 PM EDT What is the name of the medication patient is having a problem with?: oxycodone/ percocet Patient is At pharmacy What is the problem?: patient states her Dosage was increase And Also the pharamcy Wants to know ifok to fill early // ? Is the patient calling about the problem? NO If the patient is not the caller who is? shaylee Is this a NEW medication?: NO How long has the patient been taking this medication? n/a Who prescribed this medication for the patient? Dr burns Who is patients PCP?: dr burns Payor: TUNG SELF FUNDED / Plan: EPO $20 ELK SELF / Product Type: EPO documented in this encounter Plan of Treatment Not on file documented as of this encounter Visit Diagnoses Not on filedocumented in this encounter Care Teams Induction Coordination Power Engineer Relationship Specialty Start Date End Date Frances Sung, PCP - General Internal Medicine 02/12/16 04/28/18 Doug Cosby MD PCP - General Internal Medicine 04/29/18 07/11/18 Frances Sung, DO PCP - General Internal Medicine 07/12/18 02/24/19 Milton Hummel PCP - General Internal Medicine 02/25/19 06/26/19 Rj Lino MD PCP - General Internal Medicine 06/27/19 07/05/19 Milton Hummel PCP - General Internal Medicine 07/06/19 08/04/19 Frances Sung, DO PCP - General Internal Medicine 08/05/19 03/05/21 Rosalva Stephen MD [address] [place] [phone] PCP - General Internal Medicine 03/06/21 03/11/21 Frances Sung, DO PCP - General Internal Medicine 03/12/21 03/31/21 Rosalva Stephen MD [address] [place] [id number] PCP - General Internal Medicine 04/01/21 documented as of this encounter
--- OUTSIDE RECORDS SUMMARY | 2025-08-30 14:27 | XMS_ITS | Encounter Summary ---
Author Organization [facility] Address [address] [place] [address] Care Team Providers Care Nail Specialist Name Role Phone Rosalva Stephen MD Primary Care Provider [phone] Encounter Details Date Type Department Care Team Description 04/29/2023 Segmental Wall Installer Report Medical Records [address] [place] [address] Sixto Olmedo DO Social History Tobacco Use [...] on filedocumented in this encounter Care Teams Nail Specialist Relationship Specialty Start Date End Date Rosalva Stephen MD [address] [place], [place] [phone] PCP - General Internal Medicine 04/01/21 documented as of this encounter
--- OUTSIDE RECORDS SUMMARY | 2025-08-30 14:27 | XMS_ITS | Encounter Summary ---
Author Organization [facility] Address [address] [place] [address] Care Team Providers Care Metal Drill Operator Name Role Phone Sharla Gaytan, Frances DO Primary Care Pro vider Unavailable Milton Hummel Primary Care Provider Unav ailable Rj Lino MD Primary Care Provider Unava ilable Milton Hummel Primary Care Provider Unav ailable Denicekojob Colasacco, Frances DO Primary Care Pro vider Unavailable Rosalva Stephen MD Primary Care Provider [place] Colasacco, Frances DO Primary Care Pro vider Unavailable Rosalva Stephen MD Primary Care Provider [phone] Encounter Details Date Type Department Care Team Description 11/18/2018 Pt. Non Urgent Medical Question Physiatry - [address] [address] Na Reardon MD [address] [place] [address] Dr [place] [id number] Social History Tobacco Use Types Packs/Day Years [...] Progress Notes * Susan Nielson M.A. - 11/18/2018 2:55 PM ESTFrom: Deb Malcolm To: Na Reardon MD Sent: 11/18/2018 2:53 PM EST Subject: contract My clinical nurse specialist that I see for my mental health medications suggested yesterday that Icould benefit from medical marijuana. I do remember us having a discussion at one time where you stated that recreational is against the rules of the contract and they if I wanted to get a medical marijuana card, to let you know. Would it be ok to do this and not violate my contract? documented in this encounter Plan of Treatment Not on file documented as of this encounter Visit Diagnoses Not on filedocumented in this encounter Care Teams Metal Drill Operator Relationship Specialty Start Date End Date Frances Sung DO PCP - General Internal Medicine 07/12/18 02/24/19 Milton Hummel PCP - General Internal Medicine 02/25/19 06/26/19 Rj Lino MD PCP - General Internal Medicine 06/27/19 07/05/19 Milton Hummel PCP - General Internal Medicine 07/06/19 08/04/19 Frances Sung DO PCP - General Internal Medicine 08/05/19 03/05/21 Rosalva Stephen MD [address] [place] [address] PCP - General Internal Medicine 03/06/21 03/11/21 Frances Sung DO PCP - General Internal Medicine 03/12/21 03/31/21 Rosalva Stephen MD [address] [place] [address] PCP - General Internal Medicine 04/01/21 documented as of this encounter
--- OUTSIDE RECORDS SUMMARY | 2025-08-30 14:27 | XMS_ITS | Encounter Summary ---
Author Organization [facility] Address [address] [place] [address] Care Team Providers Care Supervisor Respiratory Name Role Phone [place] Colasacco, Frances DO [...] Unavailable Rosalva Stephen MD Primary Care Provider [phone] [place] Colasacco, Frances DO Primary Care Pro vider Unavailable Rosalva Stephen MD Primary Care Provider [phone] Encounter Details Date Type Department Care Team Description 10/07/2017 PNO Controlled Substance Contract Medical Records [address] [place] [address] Abstract, Provider Social History Tobacco Use Types [...] filedocumented in this encounter Care Teams Supervisor Respiratory Relationship Specialty Start Date End Date [place] [...] Medicine 08/05/19 03/05/21 Rosalva Stephen MD [address] [place] [address] PCP - General Internal Medicine 03/06/21 03/11/21 Frances Sung, PCP - General Internal Medicine 03/12/21 03/31/21 Rosalva Stephen MD [address] [place] [address] [id number] PCP - General Internal Medicine 04/01/21 documented as of this encounter
--- OUTSIDE RECORDS SUMMARY | 2025-08-30 14:27 | XMS_ITS | Encounter Summary ---
Author Organization [facility] Address [address] [place] [address] Care Team Providers Care Color Depositing Machine Tender Name Role Phone Marvin Sungabela DO Primary Care Pro vider Unavailable Milton Hummel Primary Care Provider Unav ailRj Pyle MD Primary Care Provider Unava ilMilton Alicea Primary Care Provider Unav ailable Sharla Westo, Frances DO Primary Care Pro vider Unavailable Rosalva Stephen MD Primary Care Provider [phone] Sharla Coltwylao, Frances DO Primary Care Pro vider Unavailable Rosalva Stephen MD Primary Care Provider [phone] Reason for Visit * Reason Onset Date Comments Medical Records 12/03/2018 RE: medical seda [place] Encounter Details Date Type Department Care Team Description 12/03/2018 Telephone Physiatry - [address] [id number] Na Reardon MD [address] [place] [address] Dr [place] [id number] Medical Records (RE: medical marijuana) Social History Tobacco Use Types Packs/Day Years [...] encounter Miscellaneous Notes * Telephone Encounter - aN Reardon MD - 12/07/2018 8:57 AM EST FYI * Telephone Encounter - Susan Nielson M.A. - 12/03/2018 8:37 AM EST Patient dropped of a Temporary Program ID Card from the Cannabis Control Commission for the Medicaluse of Marijuana Program. Registration number [id number] Expiration 01/11/2019 PSI entered Copy of card to Dr Avila for review documented in this encounter Plan of Treatment Not on file documented as of this encounter Visit Diagnoses Not on filedocumented in this encounter Care Teams Color Depositing Machine Tender Relationship Specialty Start Date End Date Frances Sung DO PCP - General Internal Medicine 07/12/18 02/24/19 Milton Hummel PCP - General Internal Medicine 02/25/19 06/26/19 Rj Lino MD PCP - General Internal Medicine 06/27/19 07/05/19 Milton Hummel PCP - General Internal Medicine 07/06/19 08/04/19 Frances Sung DO PCP - General Internal Medicine 08/05/19 03/05/21 Rosalva Stephen MD [address] [place] [id number] PCP - General Internal Medicine 03/06/21 03/11/21 Frances Sung DO PCP - General Internal Medicine 03/12/21 03/31/21 Rosalva Stephne MD [address] [place] [address] PCP - General Internal Medicine 04/01/21 documented as of this encounter
--- OUTSIDE RECORDS SUMMARY | 2025-08-30 14:27 | XMS_ITS | Encounter Summary ---
Author Organization [facility] Address [address] [place] [address] Care Team Providers Care Tugboat Engineer Name Role Phone Rosalva Stephen MD Primary Care Provider Encounter Details Date Type Department Care Team Description 03/26/2023 Car Supervisor Report Medical Records [address] [place] [address] Sixto Olmedo DO Social History Tobacco Use [...] on filedocumented in this encounter Care Teams Tugboat Engineer Relationship Specialty Start Date End Date Rosalva Stephen MD [address] [place], [place] [phone] PCP - General Internal Medicine 04/01/21 documented as of this encounter
--- OUTSIDE RECORDS SUMMARY | 2025-08-30 14:27 | XMS_ITS | Encounter Summary ---
Author Organization [facility] Address [address] [place] [address] Care Team Providers Care Flake Drier Name Role Phone Marvin Sungabela DO Primary Care Pro vider Unavailable Milton Hummel Primary Care Provider Unav ailable Rj Lino MD Primary Care Provider Unava ilable Milton Hummel Primary Care Provider Unav ailable Sharla Westo, Frances DO Primary Care Pro vider Unavailable Rosalva Stephen MD Primary Care Provider Sharla Westo, Frances DO Primary Care Pro vider Unavailable Rosalva Stephen MD Primary Care Provider [phone] Encounter Details Date Type Department Care Team Description 12/30/2018 Quilting Supervisor Report Medical Records [address] [place] [address] Orlin Parsons PA-C [address] [place] [address] [address] [place] [address] Social History Tobacco Use Types Packs/Day Years [...] on filedocumented in this encounter Care Teams Flake Drier Relationship Specialty Start Date End Date Frances Sung DO PCP - General Internal Medicine 07/12/18 02/24/19 Milton Hummel PCP - General Internal Medicine 02/25/19 06/26/19 Rj Lino MD PCP - General Internal Medicine 06/27/19 07/05/19 Milton Hummel PCP - General Internal Medicine 07/06/19 08/04/19 Frances Sung DO PCP - General Internal Medicine 08/05/19 03/05/21 Rosalva Stephen MD [address] [place] [address] PCP - General Internal Medicine 03/06/21 03/11/21 Frances Sung DO PCP - General Internal Medicine 03/12/21 03/31/21 Rosalva Stephen MD [address] [place] [address] PCP - General Internal Medicine 04/01/21 documented as of this encounter
--- OUTSIDE RECORDS SUMMARY | 2025-08-30 14:28 | XMS_ITS | Encounter Summary ---
Author Organization [facility] Address [address] [place] [address] Care Team Providers Care Outside Sales Inspector Name Role Phone [place] Colasacco, Frances [...] Unavailable Rosalva Stephen MD Primary Care Provider [phone] [place] Colasacco, Frances DO Primary Care Pro vider Unavailable Rosalva Stephen MD Primary Care Provider [phone] Encounter Details Date Type Department Care Team Description 11/01/2017 Pt. Non Urgent Medical Question Physiatry - [address] [address] Na Reardon MD [address] [place] [address] Dr [place], [place] [id number] Social History Tobacco Use Types Packs/Day Years [...] Progress Notes * Susan Nielson M.A. - 11/02/2017 8:52 AM ESTFrom: Deb Malcolm To: Na Reardon MD Sent: 11/01/2017 9:18 PM EST Subject: ibuprofen Can you write me a prescription for 800mg ibuprofen three times a day for a month at least. The current one only lasts a week. Thank you. documented in this encounter Plan of Treatment Not on file documented as of this encounter Visit Diagnoses Not on filedocumented in this encounter Care Teams Outside Sales Inspector Relationship Specialty Start Date End Date [...] Internal Medicine 08/05/19 03/05/21 Rosalva Stephen MD [address] [place] [address] PCP - General Internal Medicine 03/06/21 03/11/21 Frances Sung, DO PCP - General Internal Medicine 03/12/21 03/31/21 Rosalva Stephen MD [address] [place] [id number] PCP - General Internal Medicine 04/01/21 documented as of this encounter
--- OUTSIDE RECORDS SUMMARY | 2025-08-30 14:28 | XMS_ITS | Encounter Summary ---
Author Organization [facility] Address [address] [place] [address] Care Team Providers Care Director Of Diagnostic Imaging Name Role Phone Hector Morris MD Primary Care Provider Unavail able [facility], [facility] Primary Care Provider Unavailabl e [...] Unavailable Rosalva Stephen MD Primary Care Provider [phone] [place] Colasacco, Frances DO Primary Care Pro vider Unavailable Rosalva Stephen MD Primary Care Provider [phone] Encounter Details Date Type Department Care Team Description 10/04/2014 Hospital Medical Records [address] [place] [address] Luis Pickens MD Social History Tobacco Use [...] on filedocumented in this encounter Care Teams Director Of Diagnostic Imaging Relationship Specialty Start Date End Date Hector Morris MD PCP - General Internal Medicine 10/18/13 01/31/16 [facility], Pcp PCP - General Internal Medicine 02/01/16 [...] Medicine 08/05/19 03/05/21 Rosalva Stephen MD [address] [place] [address] PCP - General Internal Medicine 03/06/21 03/11/21 Frances Sung, PCP - General Internal Medicine 03/12/21 03/31/21 Rosalva Stephen MD [address] [place] [address] PCP - General Internal Medicine 04/01/21 documented as of this encounter
--- OUTSIDE RECORDS SUMMARY | 2025-08-30 14:28 | XMS_ITS | Encounter Summary ---
Author Organization [facility] Address [address] [place] [address] Care Team Providers Care Needle Leader Name Role Phone Hector Morris MD Primary Care Provider Unavail able [facility], [facility] Primary Care Provider Unavailabl [...] Unavailable Rosalva Stephen MD Primary Care Provider [phone] [place] Colasacco, Frances DO Primary Care Pro vider Unavailable Rosalva Stephen MD Primary Care Provider [phone] Encounter Details Date Type Department Care Team Description 07/19/2014 Hospital Medical Records [address] [place] [address] Zane Dennis MD Social History Tobacco Use Types Packs/Day [...] on filedocumented in this encounter Care Teams Needle Leader Relationship Specialty Start Date End Date Hector Morris MD PCP - General Internal Medicine 10/18/13 01/31/16 [facility], Pcp PCP - General Internal Medicine 02/01/16 02/11/16 Frances Sung DO PCP - General Internal [...] Medicine 08/05/19 03/05/21 Rosalva Stephen MD [address] [place] [address] PCP - General Internal Medicine 03/06/21 03/11/21 Frances Sung, PCP - General Internal Medicine 03/12/21 03/31/21 Rosalva Stephen MD [address] [place] [address] PCP - General Internal Medicine 04/01/21 documented as of this encounter
--- OUTSIDE RECORDS SUMMARY | 2025-08-30 14:28 | XMS_ITS | Encounter Summary ---
Author Organization [facility] Address [address] [place] [address] Care Team Providers Care Nail Tech Name Role Phone [place] Colasacco, Frances DO [...] Unavailable Rosalva Stephen MD Primary Care Provider [phone] [place] Colasacco, Frances DO Primary Care Pro vider Unavailable Rosalva Stephen MD Primary Care Provider [phone] Encounter Details Date Type Department Care Team Description 11/03/2017 Transfer Records Medical Records [address] [place] [address] Abstract, Provider Social History Tobacco Use Types [...] on file documented as of this encounter Nursing Notes * Lima Paula - 11/03/2017 4:32 PM EST Transfer Records from [facility] sent to Cristy Aggarwal R.N. Bellhop Captain. documented in this encounter Plan of Treatment Not on file documented as of this encounter Visit Diagnoses Not on filedocumented in this encounter Care Teams Nail Tech Relationship Specialty Start Date End Date Frances [...] Internal Medicine 08/05/19 03/05/21 Rosalva Stephen MD [address] [place] [address] PCP - General Internal Medicine 03/06/21 03/11/21 Frances Sung DO PCP - General Internal Medicine 03/12/21 03/31/21 Rosalva Stephen MD [address] [place] [address] PCP - General Internal Medicine 04/01/21 documented as of this encounter
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
--- OUTSIDE RECORDS SUMMARY | 2025-08-30 14:28 | XMS_ITS | Encounter Summary ---
Author Organization [facility] Address [address] [place] [address] Care Team Providers Care Archaeologist Name Role Phone Hector Morris MD Primary Care Provider Unavail able [facility], [facility] Primary Care Provider Unavailabl e [place] [...] Unavailable Rosalva Stephen MD Primary Care Provider [phone] [place] Colasacco, Frances DO Primary Care Pro vider Unavailable Rosalva Stephen MD Primary Care Provider [phone] Encounter Details Date Type Department Care Team Description 10/04/2014 Hospital Medical Records [address] [place] [address] Jorge Collazo PA-C [address] [place] [address] [address] [place] [address] Social History Tobacco Use Types Packs/Day Years [...] on filedocumented in this encounter Care Teams Archaeologist Relationship Specialty Start Date End Date Hector Morris MD PCP - General Internal Medicine 10/18/13 01/31/16 [facility], Pcp PCP - General Internal Medicine 02/01/16 [...] Medicine 08/05/19 03/05/21 Rosalva Stephen MD [address] [place] [address] [id number] PCP - General Internal Medicine 03/06/21 03/11/21 Frances Sung, DO PCP - General Internal Medicine 03/12/21 03/31/21 Rosalva Stephen MD [address] [place] [address] [id number] PCP - General Internal Medicine 04/01/21 documented as of this encounter
== END 2025-08-30 06:49 | disposition home or self-care (01) ==
PROVIDERS: Physician Assistant; Physician Assistant Medical; Emergency Provider Emergency Medicine; PCP Physician Assistant
DX: A05.9 Bacterial foodborne intoxication, unspecified (principal); Z88.0 Allergy status to penicillin; Z88.8 Allergy status to other drugs, medicaments and biological substances
CPT/HCPCS: 36415; 80048; 80076; 81001; 83690; 83735; 84702; 85025; 96361; 96374; 96375; 99284; 99285; J1200; J2405; J2765

== ENCOUNTER 2025-10-04 07:50 | Outpatient (AMB) | payer OTHER, SELFPAY ==
--- OUTSIDE RECORDS SUMMARY | 2025-09-25 08:30 | XMS_ITS ---
Author Organization [facility] [address] Address [address] [place] [address] Care Team Providers Care Barrel Rifler Button Name Role Phone Betito Rico Primary Care Provider Unavailab Jacquie Card Unavailable [phone] Encounters Encounter Location Date Provider Diagnosis [facility] [address] [place] [address] 09/25/2025 Jacquie Jean Plan Of Treatment No Information Progress Notes * SIGIFREDO BEARDINEDOB:08/1975 (50 yo F)Acc No.[id number]:09/25/2025 Patient: SIGIFREDO ALLRED Provider: Tevin Jean PA-C :1975 A ge:50 Y S ex:Female Date:09/25/2025 [facility] Pcp:Betito Rico * Electronic signature of Lorena Jean PA-C on 10/04/2025 at 07:57 AM EST Sign off status: Pending * Provider: Tevin Jean PA-C Date: 11/26/2024 Generated for Tacho macario/Flavio/eTransmitting on: 12/05/2024 07:57 AM EST
--- NOTE | 2025-10-04 07:54 | MHC.OFFVIS ---
Vital Signs 10/04/25 08:01 Height 5 ft 3 in Weight 150 lb BMI 26.6 BP 115/56 L Blood Pressure Location Lt brachial Position Sitting Pulse 52 Intake Visit Reasons: GI issues Intake Note: Patient complex follow up for GI issues/pt s/c her own appt on the pt portal. Ximena santoro was 2022. Patient cc: N/V on and off, abdominal discomfort, between diarrhea and constipation with some bloody stool, acid reflux and poor appetiite. Steam Drier Operator Required: No Accompanied by: Self / Same As Patient Allergies erythromycin base (ERYTHROMYCIN BASE) Allergy (Severe, Verified 10/04/25 07:55) PANCREATITIS Penicillins (PCN) Allergy (Severe, Verified 10/04/25 07:55) HIVES Medication List - Last Reconciled 10/04/25 by Lisa Hodges CNP minoxidil 2.5 mg PO DAILY 30 days ondansetron mg PO polyethylene glycol 3350 (Miralax) 17 grams PO DAILY HPI HPI GI issues: Details: Patient is a 50-year-old female with PMH of Juan-Danlos syndrome, fibromyalgia, GEORGES, depression. She presents for evaluation of worsening nausea, vomiting, abdominal discomfort, and alternating stools of diarrhea and constipation. Shares a history of Juan-Danlos syndrom and attributes some of the symptoms to this conditions. She reports the above gastrointestinal issues since childhood, but reports her symptoms have exacerbated over the last six months, including increased nausea, vomiting, epigastric pain, and bloating. She experiences vomiting at least once a week and uses Zofran regularly for nausea. Shares she sought ER care here at [facility] last month for severe nausea vomiting. She was discharged home after normal labs and IV fluids/antiemetic. Her bowel habits alternate between constipation, with no bowel movement for approximately three days about once a week, and diarrhea. She uses MiraLax for constipation. She also reports blood in her stool, which has been present for a couple of years, primarily seen with wiping and rarely in the toilet. A colonoscopy in July 2023 was normal except for grade 1 internal hemorrhoids. The patient was diagnosed with heartburn and experiences significant regurgitation but does not take daily medication for it. She reports poor appetite and feeding issues, with sensory aversions to food, and has difficulty finding foods she can tolerate. Her past medical history is significant a pulmonary embolism about three years ago, and gallstones noted on a CT scan in April 2023. She was hospitalized last month for severe nausea and vomiting, requiring IV Reglan and fluids. Her weight has fluctuated but has been relatively stable in the 150s-160s for the last year. Patient denies: fever/chills,,dysphasia, unintentional wt loss. Social hx: -ETOH use Reports being a social drinker, typically consuming alcohol about once a month, with slightly increased frequency during holidays. -smokes marijuana daily, otherwise denies recreational drug use -non-smoker - family hx as below -denies personal hx of CA -denies significant cardiopulmonary history -tolerated anesthesia in the past without difficulty. [facility] Medical History (Updated 10/04/25 @ 08:53 by Lisa Hodges CNP) Blood in stool Alternating constipation and diarrhea Epigastric abdominal pain Feeling suicidal Depression Osteoarthritis Depression GERD (gastroesophageal reflux disease) Atypical chest pain GEORGES (obstructive sleep apnea) On anticoagulant therapy Menorrhagia Pulmonary embolism Syncope and collapse Subchondral sclerosis EDS (Juan-Danlos syndrome) Surgical History Hx of colonoscopy Hx of hand surgery History of endometrial ablation H/O bilateral breast reduction surgery Hx of section History of back surgery H/O knee surgery H/O shoulder surgery (~02/2019) Family History Paternal Aunt Breast cancer Father Diabetes High cholesterol HTN (hypertension) Maternal Uncle Stroke Maternal Grandfather Emphysema lung Lung cancer Maternal Grandmother Asthma Son Asthma Social History Household Members: Children Housing: Apartment Do you presently have visiting nurse or other home services: No Alcohol intake: never Comment: stated was minimal Patient Tobacco Use Status: Never used Tobacco Tobacco use type: Cigarette e-Cigarette/Vaping Use: Never Used Second Hand Smoke Exposure: No Substance Use Type: Marijuana Advance Directives Date on File: 08/31/20 service: No Current occupational status: employed Current occupation: [employer] Sexual 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/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 Gender identity: Female Cognitive needs: No Hearing needs: No Vision needs: No Female Reproductive History Menstrual Age of Menarche: 14 Review of Systems Const Reports as per HPI ENT Reports as per HPI Card Reports as per HPI Resp Reports as per HPI GI Reports as per HPI Reports as per HPI Physical Exam Vital Signs: Last Vital Signs Pulse 52 10/04/25 08:01 BP 115/56 L 10/04/25 08:01 BMI result Body Mass Index 26.6 Const General: healthy appearing, no acute distress and well developed Nutritional Appearance: average body habitus Orientation/consciousness: patient oriented x3 HEENT Head: Yes normal to inspection, Yes normocephalic and Yes atraumatic Face and sinus: Yes normal facial exam Eyes General: appearance normal, both eyes and all related structures Neck Neck: Yes normal visual inspection Resp Effort & Inspection: normal respiratory effort, able to speak in complete sentences, no tracheal deviation and symmetric chest movement Cardio Jugular venous distension: no JVD Heart sounds: Murmur heart sound present GI Inspection: Yes normal to inspection and No distended Palpation (GI): Soft to palpation, not firm, nontender and No hepatosplenomegaly present Auscultation: normal bowel sounds Rectal Exam - Female: visual inspection normal, normal sphincter tone, No Internal hemorrhoid(s) present, No Rectal prolapse, No fecal impaction, No Lesions present (GI), No Anal fissure(s) present, No hemorrhoids, No Fistula present (GI), No Laceration(s) present (GI), No Excoriation present (GI), No mass and No tenderness Neuro General: patient oriented x3 Gait exam (Neuro): Normal gait present Psych Appearance: grossly normal Mental Status: mental status grossly normal Speech and movement: Normal speech and movement present Affect: normal affect Attitude: cooperative Thought process: Normal thought process present Thought content: Normal thought content present Insight: Good insight present (Psych) Judgement: Good judgement present (Psych) Results Reviewed Results Reviewed: Operative Note Date of Service: 07/23/23 Narrative: Operative Information Procedure Description: Colonoscopy Indication: screening Anesthesia: MAC COLONOSCOPY Instrument: Olympus variable stiffness pediatric scope 190L Colonoscopy Monitoring: Vital signs and clinical assessment, continuous EKG monitoring, Pulse oximetry, Carbon Dioxide monitoring and blood pressure monitoring were done throughout the procedure. Colon withdrawal time was 10 minutes. Procedure: The patient was placed in the left lateral decubitis position and pre-procedure medications were administered. After a digital rectal examination of the ano-rectum, the video colonoscope was inserted into the rectum and advanced through the colon to the cecum/TI. The colonoscope was slowly withdrawn in a retrograde panoramic fashion and the colon mucosa was carefully examined including a retroflexed view of the rectum. Findings and interventions are described below. Procedure Difficulty: moderate Findings: Terminal Ileum- unable to intubate due to looping Cecum:normal Ascending Colon: normal Transverse Colon -normal Descending Colon:normal Sigmoid Colon: normal Rectum: Retroflexion with small internal hemorrhoids, grade I Anorectum - normal Colon preparation: [place] Bowel Preparation Scale Right colon; 2 Transverse colon: 2 Left colon; 2 (0 = Unprepared colon segment with mucosa not seen due to solid stool that cannot be cleared. 1 = Portion of mucosa of the colon segment seen, but other areas of the colon segment not well seen due to staining, residual stool and/or opaque liquid. 2 = Minor amount of residual staining, small fragments of stool and/or opaque liquid, but mucosa of colon segment seen well. 3 = Entire mucosa of colon segment seen well with no residual staining, small fragments of stool or opaque liquid) Impression and Post Procedure Diagnosis: internal hemorrhoids Plan: High fiber diet leaflet Avoid straining at stool, epsom salts and sitz bath, anusol supps or cream Repeat Colonoscopy in 10 years or earlier if clinically indicated Above findings were reviewed with the patient and relevant handouts were provided if indicated. Date of Service: 05/05/23 Procedure(s): CT abdomen pelvis w IV con Accession Number(s): [id number] cc: Thi Canela MD~ EXAMINATION: CT CHEST WITH IV CONTRAST CT ABDOMEN AND PELVIS WITH IV CONTRAST CLINICAL INFORMATION: Trauma. COMPARISON: Chest CT from 03/30/2021. CT of abdomen and pelvis from 10/04/2020. TECHNIQUE: Multidetector CT imaging examination of the chest, abdomen and pelvis was performed with intravenous administration of 85 mL Omnipaque 350. Axial images are displayed at 0.6 mm and 5 mm slice thickness. Coronal and sagittal reformatted images were generated at the technologist's workstation and submitted for review. This CT examination was performed using dose optimization techniques as appropriate, variously including the following: *Automated exposure control *Adjustment of mA and/or kV according to patient size (this includes techniques or standardized protocols for targeted exams where dose is matched to indication/reason for exam; i.e. extremities or head) *Use of iterative reconstruction technique DLP: 766 mGy-cm FINDINGS: CHEST - LUNGS AND PLEURA: Trachea and central airways are widely patent and normal in caliber. Minimal atelectasis in dependent aspect of each lower lobe. A small, normal sized lymph node is present along the left major fissure. No pulmonary consolidation, pneumothorax or pleural effusion. MEDIASTINUM/LOWER NECK: The heart size is normal. No pericardial effusion. Pulmonary arteries and thoracic aorta are normal in caliber. No mediastinal hematoma or pneumomediastinum. The esophagus and thyroid gland are normal. LYMPHATICS: No pathologic sized axillary, hilar or mediastinal lymph nodes. CHEST WALL/BONES OF THORAX: No chest wall hematoma. Intact bilateral subpectoral breast implants in place. Mild spondylosis of the thoracic spine. Thoracic vertebra have normal height and alignment. Sternum is intact. No rib fractures are identified. ABDOMEN AND PELVIS - HEPATOBILIARY: Liver has normal size, contour and attenuation. Cholelithiasis is present. No gallbladder wall thickening or pericholecystic fluid. No dilated bile ducts. PANCREAS: No edema, mass or pancreatic ductal dilatation. SPLEEN: Normal. ADRENAL GLANDS: Normal. KIDNEYS AND URETERS: Kidneys are normal in size and attenuation. No nephrolithiasis, hydronephrosis or perinephric fluid collection. BOWEL AND PERITONEUM: No dilated loops of bowel. The appendix is normal. No overt bowel wall thickening. No mesenteric fat stranding, ascites or pneumoperitoneum. ABDOMINAL WALL: Unremarkable. VESSELS: Abdominal aorta is normal in caliber and its branches are widely patent. Inferior vena cava is normal. No retroperitoneal hematoma. LYMPH NODES: No pathologic sized lymph nodes in the abdomen or pelvis. No inguinal lymphadenopathy. BLADDER AND PELVIC VISCERA: Urinary bladder is normal. No evidence of uterine or adnexal mass. No pelvic free fluid. OTHER MUSCULOSKELETAL: The lumbar vertebra have normal height and alignment. Pelvic bones and proximal femurs are intact. CT/CT abdomen pelvis w IV con IMPRESSION: * No acute traumatic pathology in the chest, abdomen or pelvis. * Incidentally noted is cholelithiasis without evidence of cholecystitis. * Mild spondylosis of the thoracic spine. No fracture or malalignment. Assessment & Plan Assessment & Plan (1) Epigastric abdominal pain: Code(s): R10.13 - Epigastric pain Category: Medical Plan: Acute on chronic. The differential for the patient's worsening upper gastrointestinal symptoms includes H. pylori infection, cholelithiasis, uncontrolled gastroesophageal reflux, and constipation. - An H. pylori breath test will be performed today to rule out an active infection. - An abdominal ultrasound and an upper GI series will be ordered to re-evaluate her known gallstones and assess the upper GI tract. - A referral to general surgery will be considered depending on the ultrasound findings. (2) Alternating constipation and diarrhea: Code(s): R19.8 - Other specified symptoms and signs involving the digestive system and abdomen Category: Medical Plan: The patient's bowel pattern may be related to her underlying Juan-Danlos syndrome or represent constipation with overflow diarrhea. - The patient is advised to increase her use of vitn-agr-cplaezu MiraLax to daily to regulate her bowel movements, and then titrate as needed. - She is also encouraged to increase dietary fiber intake, and a handout on high-fiber foods will be provided. (3) Blood in stool: Code(s): K92.1 - Melena Category: Medical Plan: Despite a normal colonoscopy in 2022 that showed only internal hemorrhoids, the patient continues to experience rectal bleeding. - A rectal exam today was normal. - A stool test kit will be ordered to check for blood in the stool. - A repeat colonoscopy may be considered in the future if the bleeding persists and other workups are unrevealing. Plan Follow-up after imaging or sooner as needed Time: I spent a total of 35 minutes on the date of encounter which includes: Preparing to see the patient (reviewed previous documentation, test results and medical history) Performing a medically appropriate exam and/or evaluation Ordering medications, tests, and procedures Documenting clinical information in the health record Orders: Orders FL upper GI small bowel Today K21.9 - Gastro-esophageal reflux disease without esophagitis H Pylori Breath Test Today R14.0 - Abdominal distension (gaseous) US abdomen complete Today K21.9 - Gastro-esophageal reflux disease without esophagitis, R10.13 - Epigastric pain, R11.2 - Nausea with vomiting, unspecified AMB Stool Occult Bld x3 gFOBT Today K92.1 - Melena Coding Level of Care Code Established Pt Est Pt Level 4 (80544) Patient Type Established Diagnoses Epigastric abdominal pain R10.13 Alternating constipation and diarrhea R19.8 Blood in stool K92.1
--- OUTSIDE RECORDS SUMMARY | 2025-10-04 07:55 | XMS_ITS | Encounter Summary ---
Author Organization [facility] Prior to 08/12/[address] [place] [address] Care Team Providers Care Natural Resource Specialist Name Role Phone Rosalva Stephen MD Primary Care Provider [phone] Encounter Details Date Type Department Care Team Description 04/23/2021 Refill Rheumatology - [address] [id number] Loyd Langston PA Social History Tobacco Use [...] filedocumented in this encounter Care Teams Natural Resource Specialist Relationship Specialty Start Date End Date Rosalva Stephen MD [address] [place] [address] PCP - General Internal Medicine 04/01/21 documented as of this encounter
--- OUTSIDE RECORDS SUMMARY | 2025-10-04 07:55 | XMS_ITS | Encounter Summary ---
Author Organization [facility] Prior to 08/12/[address] [place] [address] Care Team Providers Care Heating Element Winder Name Role Phone Milton Hummel Primary Care Provider Unav ailable Rj Lino MD Primary Care Provider Unava ilMilton Alicea Primary Care Provider Unav ailable [place] Colasacco, Frances DO Primary Care Pro vider Unavailable Rosalva Stephen MD Primary Care Provider [phone] [place] Colasacco, Frances DO Primary Care Pro vider Unavailable Rosalva Stephen MD Primary Care Provider [phone] Encounter Details Date Type Department Care Team Description 04/20/2019 Old Medical Records Medical Records [address] [place] [address] Karoline Sultana Social History Tobacco Use Types [...] on filedocumented in this encounter Care Teams Heating Element Winder Relationship Specialty Start Date End Date Milton Hummel PCP - General Internal Medicine 02/25/19 06/26/19 Rj Lino MD PCP - General Internal Medicine 06/27/19 07/05/19 Milton Hummel PCP - General Internal Medicine 07/06/19 08/04/19 Frances Sung DO PCP - General Internal Medicine 08/05/19 03/05/21 Rosalva Stephen MD [address] [place] [address] [id number] PCP - General Internal Medicine 03/06/21 03/11/21 Frances Sung DO PCP - General Internal Medicine 03/12/21 03/31/21 Rosalva Stephen MD [address] [place] [address] PCP - General Internal Medicine 04/01/21 documented as of this encounter
--- OUTSIDE RECORDS SUMMARY | 2025-10-04 07:55 | XMS_ITS | Encounter Summary ---
Author Organization [facility] Prior to 08/12/[address] [place] [address] Care Team Providers Care Sap Business Objects Consultant Name Role Phone Rosalva Stephen MD Primary Care Provider [phone] Encounter Details Date Type Department Care Team Description 04/19/2021 Gas Plant Dispatcher Report Medical Records [address] [place] [address] Harjinder Stovall Social History Tobacco Use Types [...] filedocumented in this encounter Care Teams Sap Business Objects Consultant Relationship Specialty Start Date End Date Rosalva Stephen MD [address] [place] [address] [id number] PCP - General Internal Medicine 04/01/21 documented as of this encounter
--- OUTSIDE RECORDS SUMMARY | 2025-10-04 07:55 | XMS_ITS | Encounter Summary ---
Author Organization [facility] Prior to 08/12/[address] [place] [address] Care Team Providers Care Senior Bi Architect Name Role Phone Rosalva Stephen MD Primary Care Provider [phone] Reason for Visit * Reason Onset Date Comments Faxed Order 10/09/2022 [facility] 2-11/06/22 Encounter Details Date Type Department Care Team Description 10/09/2022 Telephone Adult Medicine [facility] [address] [place] [address] Rosalva Stephen MD [address] [place] [address] Faxed Order ([facility] 09/08/22-11/06/22) Social History Tobacco [...] Miscellaneous Notes * Telephone Encounter - Laura Bahman - 10/09/2022 1:09 PM EST Orders from [facility] to be signed and faxed back to [phone] . documented in this encounter Plan of Treatment Not on file documented as of this encounter Visit Diagnoses Not on filedocumented in this encounter Care Teams Senior Bi Architect Relationship Specialty Start Date End Date Rosalva Stephen MD [address] [place] [address] PCP - General Internal Medicine 04/01/21 documented as of this encounter
--- OUTSIDE RECORDS SUMMARY | 2025-10-04 07:55 | XMS_ITS | Encounter Summary ---
Author Organization [facility] Prior to 08/12/[address] [place] [address] Care Team Providers Care Judicial Administrative Assistant Name Role Phone Rosalva Stephen MD Primary Care Provider [phone] Encounter Details Date Type Department Care Team Description 04/26/2021 [facility] Medical Records [address] [place] [address] Abstract, Provider Social History Tobacco Use Types [...] on filedocumented in this encounter Care Teams Judicial Administrative Assistant Relationship Specialty Start Date End Date Rosalva Stephen MD [address] [place] [address] PCP - General Internal Medicine 04/01/21 documented as of this encounter
--- OUTSIDE RECORDS SUMMARY | 2025-10-04 07:55 | XMS_ITS | Encounter Summary ---
Author Organization [facility] Prior to 08/12/[address] [place] [address] Care Team Providers Care Warehouse Loader Name Role Phone Rosalva Stephen MD Primary Care Provider [phone] Encounter Details Date Type Department Care Team Description 07/10/2022 Home Health Certification Medical Records [address] [place] [address] [facility] [address] [phone] Social History Tobacco Use Types Packs/Day Years [...] suspected to have Coronavirus/COVID-19? No / Unsure 06/30/2022 10:08 AM EDT documented as of this encounter Plan of Treatment Not on file documented as of this encounter Visit Diagnoses Not on filedocumented in this encounter Care Teams Warehouse Loader Relationship Specialty Start Date End Date Rosalva Stephen MD [address] [place] [address] PCP - General Internal Medicine 04/01/21 documented as of this encounter
--- OUTSIDE RECORDS SUMMARY | 2025-10-04 07:55 | XMS_ITS | Encounter Summary ---
Author Organization [facility] Prior to 08/12/[address] [place] [address] Care Team Providers Care Meeting Specialist Name Role Phone Frances Sung DO Primary Care Pro vider Unavailable Rosalva Stephen MD Primary Care Provider [phone] Frances Sung DO Primary Care Pro vider Unavailable Rosalva Stephen MD Primary Care Provider [phone] Encounter Details Date Type Department Care Team Description 07/10/2020 Transfer Records Medical Records [address] [place] [address] Abstract, Provider Social History Tobacco Use Types [...] on filedocumented in this encounter Care Teams Meeting Specialist Relationship Specialty Start Date End Date Frances Sung DO PCP - General Internal Medicine 08/05/19 03/05/21 Rosalva Stephen MD [address] [place] [address] PCP - General Internal Medicine 03/06/21 03/11/21 Frances Sung DO PCP - General Internal Medicine 03/12/21 03/31/21 Rosalva Stephen MD [address] [place] [phone] PCP - General Internal Medicine 04/01/21 documented as of this encounter
--- OUTSIDE RECORDS SUMMARY | 2025-10-04 07:55 | XMS_ITS | Encounter Summary ---
Author Organization [facility] Prior to 08/12/[address] [place] [address] Care Team Providers Care Air Lift Operator Name Role Phone Milton Hummel Primary Care Provider Unav ailRj Pyle MD Primary Care Provider Unava ilMilton Alicea Primary Care Provider Unav ailable [place]icek[place]ak Coltwylao, Frances DO Primary Care Pro vider Unavailable Rosalva Stephen MD Primary Care Provider [phone] [place] Colasacco, Frances DO Primary Care Pro vider Unavailable Rosalva Stephen MD Primary Care Provider [phone] Reason for Visit * Reason Onset Date Comments Provider Call Back 04/19/2019 Encounter Details Date Type Department Care Team Description 04/19/2019 Pt. Non Urgent Medical Question Physiatry - [address] [address] Na Reardon MD [address] [place] [address] [place] [phone] Social History Tobacco Use Types Packs/Day Years [...] on filedocumented in this encounter Care Teams Air Lift Operator Relationship Specialty Start Date End Date Milton Hummel PCP - General Internal Medicine 02/25/19 06/26/19 Rj Lino MD PCP - General Internal Medicine 06/27/19 07/05/19 Milton Hummel PCP - General Internal Medicine 07/06/19 08/04/19 Frances Sung DO PCP - General Internal Medicine 08/05/19 03/05/21 Rosalva Stephen MD [address] [place] [phone] PCP - General Internal Medicine 03/06/21 03/11/21 Frances Sung DO PCP - General Internal Medicine 03/12/21 03/31/21 Rosalva Stephen MD [address] [place] [id number] PCP - General Internal Medicine 04/01/21 documented as of this encounter
--- OUTSIDE RECORDS SUMMARY | 2025-10-04 07:55 | XMS_ITS | Encounter Summary ---
Author Organization [facility] Prior to 08/12/[address] [place] [address] Care Team Providers Care Corporate Account Executive Name Role Phone Milton Hummel Primary Care Provider Unav ailable Rj Lino MD Primary Care Provider Unava ilable Milton Hummel Primary Care Provider Unav ailable [place] Colasacco, Frances DO Primary Care Pro vider Unavailable Rosalva Stephen MD Primary Care Provider [phone] [place] Colasacco, Frances DO Primary Care Pro vider Unavailable Rosalva Stephen MD Primary Care Provider [phone] Encounter Details Date Type Department Care Team Description 03/22/2019 Refill OBGYN - [address] [id number] Meghann Lewis, [address] [id number] Social History Tobacco Use Types Packs/Day Years [...] EDT WHEN WAS THE PATIENTS LAST ANNUAL MASSOTHERAPIST EXAM? 03/11/18 Does patient have an upcoming [...] the end of the day? NO Payor: [facility] [employer] [employer] / Plan: [facility] / Product Type: MEDICAID RISK * Telephone Encounter - Thalia Stapleton C.M.A. - 03/22/2019 3:51 PM EDT Pt needs ag. DL * Telephone Encounter - Thalia Stapleton C.M.A. - 03/22/2019 3:51 PM EDTFrom: Deb Malcolm To: Meghann Lewis CNM Sent: 03/22/2019 3:50 PM EDT Subject: Medication Renewal Request Original authorizing provider: AG Peterson would like a refill of the following medications: norethindrone-ethinyl estradiol (NECON 0.5/35, 28,) 0.5-35 MG-MCG per tablet [Meghann Lewis CNM] Preferred pharmacy: [id number] [place] [address] GARZA Comment: documented in this encounter Plan of Treatment Not on file documented as of this encounter Visit Diagnoses Not on filedocumented in this encounter Care Teams Corporate Account Executive Relationship Specialty Start Date End Date Milton Hummel PCP - General Internal Medicine 02/25/19 06/26/19 Rj Lino MD PCP - General Internal Medicine 06/27/19 07/05/19 Milton Hummel PCP - General Internal Medicine 07/06/19 08/04/19 Frances Sung DO PCP - General Internal Medicine 08/05/19 03/05/21 Rosalva Stephen MD [address] [place] [address] PCP - General Internal Medicine 03/06/21 03/11/21 Frances Sung DO PCP - General Internal Medicine 03/12/21 03/31/21 Rosalva Stephen MD [address] [place] [address] PCP - General Internal Medicine 04/01/21 documented as of this encounter
--- OUTSIDE RECORDS SUMMARY | 2025-10-04 07:55 | XMS_ITS | Encounter Summary ---
Author Organization [facility] Prior to 08/12/[address] [place] [address] Care Team Providers Care Clear Coat Sprayer Name Role Phone Frances Sung DO Primary Care Pro vider Unavailable Rosalva Stephen MD Primary Care Provider [phone] Frances Sung DO Primary Care Pro vider Unavailable Rosalva Stephen MD Primary Care Provider [phone] Encounter Details Date Type Department Care Team Description 08/15/2020 Refill Physiatry - [address] [address] Na Reardon MD [address] [place] [address] Dr [place] [id number] Social History Tobacco Use Types Packs/Day Years [...] Telephone Encounter - Alyssa Lyon L.P.N. - 08/16/2020 7:23 AM EST Contracted Last [...] knee documented in this encounter Care Teams Clear Coat Sprayer Relationship Specialty Start Date End Date Frances Sung DO PCP - General Internal Medicine 08/05/19 03/05/21 Rosalva Stephen MD [address] [place] [address] PCP - General Internal Medicine 03/06/21 03/11/21 Frances Sung DO PCP - General Internal Medicine 03/12/21 03/31/21 Rosalva Stephen MD [address] [place] [address] PCP - General Internal Medicine 04/01/21 documented as of this encounter
--- OUTSIDE RECORDS SUMMARY | 2025-10-04 07:55 | XMS_ITS | Encounter Summary ---
Author Organization [facility] Prior to 08/12/[address] [place] [address] Care Team Providers Care Weight Guesser Name Role Phone Milton Hummel Primary Care Provider Unav ailable Rj Lino MD Primary Care Provider Unava ilable Milton Hummel Primary Care Provider Unav ailable [place] Colasacco, Frances DO Primary Care Pro vider Unavailable Rosalva Stephen MD Primary Care Provider [phone] [place] Colasacco, Frances DO Primary Care Pro vider Unavailable Rosalva Stephen MD Primary Care Provider [phone] Encounter Details Date Type Department Care Team Description 04/25/2019 Orders Only Medical Records [address] [place] [address] Red Quach DO Social History Tobacco Use Types Packs/Day [...] Name Priority Date/Time Associated Diagnosis Comments OUTSIDE LAB Routine 04/22/2019 documented in this encounter Results * OUTSIDE LAB (04/22/2019) Red Quach DO LAB documented in this encounter Visit Diagnoses Not on filedocumented in this encounter Care Teams Weight Guesser Relationship Specialty Start Date End Date Milton Hummel PCP - General Internal Medicine 02/25/19 06/26/19 Rj Lino MD PCP - General Internal Medicine 06/27/19 07/05/19 Milton Hummel PCP - General Internal Medicine 07/06/19 08/04/19 Frances Sung DO PCP - General Internal Medicine 08/05/19 03/05/21 Rosalva Stephen MD [address] [place] [address] PCP - General Internal Medicine 03/06/21 03/11/21 Frances Sung DO PCP - General Internal Medicine 03/12/21 03/31/21 Rosalva Stephen MD [address] [place] [address] PCP - General Internal Medicine 04/01/21 documented as of this encounter
--- OUTSIDE RECORDS SUMMARY | 2025-10-04 07:55 | XMS_ITS | Encounter Summary ---
Author Organization [facility] Prior to 08/12/[address] [place] [address] Care Team Providers Care Manager Cargo Name Role Phone Frances Sung DO Primary Care Pro vider Unavailable Rosalva Stephen MD Primary Care Provider [phone] Frances Sung DO Primary Care Pro vider Unavailable Rosalva Stephen MD Primary Care Provider [phone] Encounter Details Date Type Department Care Team Description 06/21/2020 Refill Physiatry - [address] [address] Mikey Bowser PA-C Social History Tobacco Use [...] knee documented in this encounter Care Teams Manager Cargo Relationship Specialty Start Date End Date Frances Sung DO PCP - General Internal Medicine 08/05/19 03/05/21 Rosalva Stephen MD [address] [place] [address] PCP - General Internal Medicine 03/06/21 03/11/21 Frances Sung DO PCP - General Internal Medicine 03/12/21 03/31/21 Rosalva Stephen MD [address] [place] [address] PCP - General Internal Medicine 04/01/21 documented as of this encounter
--- OUTSIDE RECORDS SUMMARY | 2025-10-04 07:55 | XMS_ITS | Encounter Summary ---
Author Organization [facility] Prior to 08/12/[address] [place] [address] Care Team Providers Care Brass Molder Helper Name Role Phone Rosalva Stephen MD Primary Care Provider [phone] Encounter Details Date Type Department Care Team Description 11/07/2022 Home Health Certification Medical Records [address] [place] [address] [facility] [address] [id number] Social History Tobacco Use Types Packs/Day Years [...] on filedocumented in this encounter Care Teams Brass Molder Helper Relationship Specialty Start Date End Date Rosalva Stephen MD [address] [place], [place] [phone] PCP - General Internal Medicine 04/01/21 documented as of this encounter
--- OUTSIDE RECORDS SUMMARY | 2025-10-04 07:55 | XMS_ITS | Encounter Summary ---
Author Organization [facility] Prior to 08/12/[address] [place] [address] Care Team Providers Care Otorhinolaryngologist Name Role Phone Frances Sung DO Primary Care Pro vider Unavailable Rosalva Stephen MD Primary Care Provider [phone] Frances Sung DO Primary Care Pro vider Unavailable Rosalva Stephen MD Primary Care Provider [phone] Encounter Details Date Type Department Care Team Description 07/20/2020 Pt. Non Urgent Medical Question OBGYN - [address] [address] Rizwana Carter MD [address] [place] [address] [id number] Social History Tobacco Use Types Packs/Day Years [...] encounter Miscellaneous Notes * Telephone Encounter - Paula Sidhu R.N. - 07/20/2020 12:55 PM EDTFrom: Deb Carmona: Rizwana Carter MD Sent: 07/20/2020 12:49 PM EDT Subject: Left sided pain I'm having very sharp pain on the left lower side of my abdomen. When I lived in [place] they did an ultrasound during one of similar type pains and discovered a menstrual cycle cyst. I just wanted to note that I'm having similar very painful pain to the ones I've had before. I have an appt with you soon. If it gets worse I will call for an even sooner appt. documented in this encounter Plan of Treatment Not on file documented as of this encounter Visit Diagnoses Not on filedocumented in this encounter Care Teams Otorhinolaryngologist Relationship Specialty Start Date End Date Frances Sung DO PCP - General Internal Medicine 08/05/19 03/05/21 Rosalva Stephen MD [address] [place] [address] PCP - General Internal Medicine 03/06/21 03/11/21 Frances Sung DO PCP - General Internal Medicine 03/12/21 03/31/21 Rosalva Stephen MD [address] [place] [address] PCP - General Internal Medicine 04/01/21 documented as of this encounter
--- OUTSIDE RECORDS SUMMARY | 2025-10-04 07:55 | XMS_ITS | Encounter Summary ---
Author Organization [facility] Prior to 08/12/[address] [place] [address] Care Team Providers Care Sdet Name Role Phone [place] Colasacco, Frances DO [...] Unavailable Rosalva Stephen MD Primary Care Provider [phone] [place] Colasacco, Frances DO Primary Care Pro vider Unavailable Rosalva Stephen MD Primary Care Provider [phone] Encounter Details Date Type Department Care Team Description 04/12/2018 Pt. Non Urgent Medical Question Physiatry - [facility] [address] [place] [address] Na Reardon MD [address] [place] [address] Dr [place], [place] [phone] Social History Tobacco Use Types Packs/Day Years [...] Progress Notes * Susan Nielson M.A. - 04/12/2018 1:04 PM EDTFrom: Deb Malcolm To: Na Reardon MD Sent: 04/12/2018 12:24 PM EDT Subject: muscle spasms Unfortunately the lidocaine trigger point injections didn't work for me. I'm not sure what to do atthis point. I lifted my son (almost 40 lbs) to put him in the cart at the store and pulled another back muscle. You can literally touch my back and feel it spasming and the Flexeril isn't working. It's painful and uncomfortable and I'm not sure what to do. Is there anything I can do to get the spasms to stop? Unfortunately I can't stop lifting my toddler so I'm not sure I'm even able to give my muscles a chance to really rest except for the days he's with his father (2 days a week). documented in this encounter Plan of Treatment Not on file documented as of this encounter Visit Diagnoses Not on filedocumented in this encounter Care Teams Sdet Relationship Specialty Start Date End Date Frances [...] Medicine 08/05/19 03/05/21 Rosalva Stephen MD [address] [place] [address] PCP - General Internal Medicine 03/06/21 03/11/21 Frances Sung DO PCP - General Internal Medicine 03/12/21 03/31/21 Rosalva Stephen MD [address] [place] [address] PCP - General Internal Medicine 04/01/21 documented as of this encounter
--- OUTSIDE RECORDS SUMMARY | 2025-10-04 07:55 | XMS_ITS | Encounter Summary ---
Author Organization [facility] Prior to 08/12/[address] [place] [address] Care Team Providers Care Incinerator Plant General Supervisor Name Role Phone Rosalva Stephen MD Primary Care Provider [phone] Reason for Visit * Reason Onset Date Comments Faxed Order 09/24/2022 [facility] -09/07/2022 Encounter Details Date Type Department Care Team Description 09/24/2022 Telephone Adult Medicine [address] [address] Rosalva Stephen MD [address] [place] [address] Faxed Order ([facility] 07/10/2022-09/07/2022) Social History [...] on filedocumented in this encounter Care Teams Incinerator Plant General Supervisor Relationship Specialty Start Date End Date Rosalva Stephen MD [address] [place] [address] [place] [address] PCP - General Internal Medicine 04/01/21 documented as of this encounter
--- OUTSIDE RECORDS SUMMARY | 2025-10-04 07:56 | XMS_ITS | Encounter Summary ---
Author Organization [facility] Prior to 08/12/[address] [place] [address] Care Team Providers Care Senior Analyst Market Intelligence Name Role Phone Rosalva Stephen MD Primary Care Provider [phone] Encounter Details Date Type Department Care Team Description 01/03/2022 Hospital Medical Records [address] [place] [address] Saeed Delong Social History Tobacco Use Types [...] Date End Date Rosalva Stephen MD [address] [place], [place] [phone] PCP - General Internal Medicine 04/01/21 documented as of this encounter
--- OUTSIDE RECORDS SUMMARY | 2025-10-04 07:56 | XMS_ITS | Encounter Summary ---
Author Organization [facility] Prior to 08/12/[address] [place] [address] Care Team Providers Care Stock Handler Floorperson Name Role Phone Doug Cosby MD Primary Care Provider Unavail able [place] Colasacco, Frances DO Primary Care Pro vider Unavailable Milton Hummel Primary Care Provider Unav ailable Rj Lino MD Primary Care Provider Unava ilable Milton Hummel Primary Care Provider Unav ailable [place] Colasacco, Frances DO Primary Care Pro vider Unavailable Rosalva Stephen MD Primary Care Provider [phone] [place] Colasacco, Frances DO Primary Care Pro vider Unavailable Rosalva Stephen MD Primary Care Provider [phone] Encounter Details Date Type Department Care Team Description 05/05/2018 Refill Physiatry - [address] [address] Alejandro Myers PA-C Social History Tobacco Use [...] MG tablet [ALEJANDRO MYERS PA-C] Preferred pharmacy: [id number], [address] [facility] Comment: documented in this encounter Plan of Treatment Not on file documented as of this encounter Visit Diagnoses Diagnosis Fibromyalgia Mylagia and myositis, unspecified documented in this encounter Care Teams Stock Handler Floorperson Relationship Specialty Start Date End Date Doug [...] Internal Medicine 08/05/19 03/05/21 Rosalva Stephen MD [address] [place] [address] PCP - General Internal Medicine 03/06/21 03/11/21 Frances Sung DO PCP - General Internal Medicine 03/12/21 03/31/21 Rosalva Stephen MD [address] [place] [address] PCP - General Internal Medicine 04/01/21 documented as of this encounter
--- OUTSIDE RECORDS SUMMARY | 2025-10-04 07:56 | XMS_ITS | Encounter Summary ---
Author Organization [facility] Prior to 08/12/[address] [place] [address] Care Team Providers Care Frame Feeder Name Role Phone Frances Sung DO Primary Care Pro vider Unavailable Milton Hummel Primary Care Provider Unav ailable Rj Lion MD Primary Care Provider Unava ilable Milton Hummel Primary Care Provider Unav ailable Frances Sung DO Primary Care Pro vider Unavailable Rosalva Stephen MD Primary Care Provider [phone] Frances Sung DO Primary Care Pro vider Unavailable Rosalva Stephen MD Primary Care Provider [phone] Encounter Details Date Type Department Care Team Description 09/14/2018 [facility] Medical Records [address] [place] [address] Abstract, Provider Social History Tobacco Use Types [...] on filedocumented in this encounter Care Teams Frame Feeder Relationship Specialty Start Date End Date Frances Sung DO PCP - General Internal Medicine 07/12/18 02/24/19 Milton Hummel PCP - General Internal Medicine 02/25/19 06/26/19 Rj Lino MD PCP - General Internal Medicine 06/27/19 07/05/19 Milton Hummel PCP - General Internal Medicine 07/06/19 08/04/19 rFances Sung DO PCP - General Internal Medicine 08/05/19 03/05/21 Rosalva Stephen MD [address] [place] [address] PCP - General Internal Medicine 03/06/21 03/11/21 Frances Sung DO PCP - General Internal Medicine 03/12/21 03/31/21 Rosalva Stephen MD [address] [place] [address] PCP - General Internal Medicine 04/01/21 documented as of this encounter
--- OUTSIDE RECORDS SUMMARY | 2025-10-04 07:56 | XMS_ITS | Encounter Summary ---
Author Organization [facility] Prior to 08/12/[address] [place] [address] Care Team Providers Care Dental Laboratory Technician Name Role Phone Milton Hummel Primary Care Provider Unav ailable Sharla Coltwylao, Frances DO Primary Care Pro vider Unavailable Rosalva Stephen MD Primary Care Provider [phone] [place]rak[place]ak Colasacco, Frances DO Primary Care Pro vider Unavailable Rosalva Stephen MD Primary Care Provider [phone] Reason for Visit * Reason Onset Date Comments CSC Pill Count 07/06/2019 Encounter Details Date Type Department Care Team Description 07/06/2019 Telephone Physiatry - [address] [phone] Na Reardon MD [address] [place] [address] Dr [place], [place] [phone] CSC Pill Count Social History Tobacco Use [...] on filedocumented in this encounter Care Teams Dental Laboratory Technician Relationship Specialty Start Date End Date Milton Hummel PCP - General Internal Medicine 07/06/19 08/04/19 Frances Sung DO PCP - General Internal Medicine 08/05/19 03/05/21 Rosalva Stephen MD [address] [place] [address] PCP - General Internal Medicine 03/06/21 03/11/21 Frances Sung DO PCP - General Internal Medicine 03/12/21 03/31/21 Rosalva Stephen MD [address] [place] [address] [id number] PCP - General Internal Medicine 04/01/21 documented as of this encounter
--- OUTSIDE RECORDS SUMMARY | 2025-10-04 07:56 | XMS_ITS | Encounter Summary ---
Author Organization [facility] Prior to 08/12/[address] [place] [address] Care Team Providers Care Log Deck Tender Name Role Phone Sharla Gaytan, Frances DO Primary Care Pro vider Unavailable Milton Hummel Primary Care Provider Unav ailable Rj Lino MD Primary Care Provider Unava ilable Milton Hummel Primary Care Provider Unav ailable Sharla Westo, Frances DO Primary Care Pro vider Unavailable Rosalva Stephen MD Primary Care Provider [phone] Krakojob Coltwylao, Frances DO Primary Care Pro vider Unavailable Rosalva Stephen MD Primary Care Provider [phone] Encounter Details Date Type Department Care Team Description 09/05/2018 Pt. 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 https://www.ncbi.nlm.nih.gov/pmc/articles/SZV2094727/ The reasons for why upregulation of brain [...] on filedocumented in this encounter Care Teams Log Deck Tender Relationship Specialty Start Date End Date Frances Sung DO PCP - General Internal Medicine 07/12/18 02/24/19 Milton Hummel PCP - General Internal Medicine 02/25/19 06/26/19 Rj Lino MD PCP - General Internal Medicine 06/27/19 07/05/19 Milton Hummel PCP - General Internal Medicine 07/06/19 08/04/19 Frances Sung DO PCP - General Internal Medicine 08/05/19 03/05/21 Rosalva Stephen MD [address] [place] [address] PCP - General Internal Medicine 03/06/21 03/11/21 Frances Sung DO PCP - General Internal Medicine 03/12/21 03/31/21 Rosalva Stephen MD [address] [place] [address] PCP - General Internal Medicine 04/01/21 documented as of this encounter
--- OUTSIDE RECORDS SUMMARY | 2025-10-04 07:56 | XMS_ITS | Encounter Summary ---
Author Organization [facility] Prior to 08/12/[address] [place] [address] Care Team Providers Care Wastewater Project Engineer Name Role Phone Milton Hummel Primary Care Provider Unav ailable Rj Lino MD Primary Care Provider Unava ilable Milton Hummel Primary Care Provider Unav ailable [place] Colasacco, Frances DO Primary Care Pro vider Unavailable Rosalva Stephen MD Primary Care Provider [phone] [place] Colasacco, Frances DO Primary Care Pro vider Unavailable Rosalva Stephen MD Primary Care Provider [phone] Encounter Details Date Type Department Care Team Description 06/23/2019 Refill Physiatry - [address] [address] Na Reardon MD [address] [place] [address] Dr [place] [id number] Social History Tobacco Use Types Packs/Day Years [...] per tablet [Na Reardon MD] Preferred pharmacy: [facility] #[id number] [place] [address] GARZA Comment: Would like to be able to continuous pickling line pickler helper my prescription tomorrow morning please. Thank you. documented in this encounter Plan of Treatment Not on file documented as of this encounter Visit Diagnoses Diagnosis Chronic left shoulder pain Pain in joint, shoulder region History of cervical spinal surgery Personal history of surgery to other organs Chronic pain of right knee documented in this encounter Care Teams Wastewater Project Engineer Relationship Specialty Start Date End Date Milton Hummel PCP - General Internal Medicine 02/25/19 06/26/19 Rj Lino MD PCP - General Internal Medicine 06/27/19 07/05/19 Milton Hummel PCP - General Internal Medicine 07/06/19 08/04/19 Frances Sung DO PCP - General Internal Medicine 08/05/19 03/05/21 Rosalva Stephen MD [address] [place] [address] PCP - General Internal Medicine 03/06/21 03/11/21 Frances Sung DO PCP - General Internal Medicine 03/12/21 03/31/21 Rosalva Stephen MD [address] [place], [place] [phone] PCP - General Internal Medicine 04/01/21 documented as of this encounter
--- OUTSIDE RECORDS SUMMARY | 2025-10-04 07:56 | XMS_ITS | Encounter Summary ---
Author Organization [facility] Prior to 08/12/[address] [place] [address] Care Team Providers Care Care Technician Name Role Phone Frances Sung DO Primary Care Pro vider Unavailable Milton Hummel Primary Care Provider Unav ailable Rj Lino MD Primary Care Provider Unava ilable Milton Hummel Primary Care Provider Unav ailable Frances Sung DO Primary Care Pro vider Unavailable Rosalva Stephen MD Primary Care Provider [phone] Frances Sung DO Primary Care Pro vider Unavailable Rosalva Stephen MD Primary Care Provider [phone] Encounter Details Date Type Department Care Team Description 10/11/2018 [facility] Medical Records [address] [place] [address] Abstract, Provider Social History Tobacco Use Types [...] on filedocumented in this encounter Care Teams Care Technician Relationship Specialty Start Date End Date Frances Sung DO PCP - General Internal Medicine 07/12/18 02/24/19 Milton Hummel PCP - General Internal Medicine 02/25/19 06/26/19 Rj Lino MD PCP - General Internal Medicine 06/27/19 07/05/19 Milton Hummel PCP - General Internal Medicine 07/06/19 08/04/19 Frances Sung DO PCP - General Internal Medicine 08/05/19 03/05/21 Rosalva Stephen MD [address] [place] [address] PCP - General Internal Medicine 03/06/21 03/11/21 Frances Sung DO PCP - General Internal Medicine 03/12/21 03/31/21 Rosalva Stephen MD [address] [place] [address] PCP - General Internal Medicine 04/01/21 documented as of this encounter
--- OUTSIDE RECORDS SUMMARY | 2025-10-04 07:56 | XMS_ITS | Encounter Summary ---
Author Organization [facility] Prior to 08/12/[address] [place] [address] Care Team Providers Care Sewage Plant Operator Name Role Phone Milton Hummel Primary Care Provider Unav ailable Rj Lino MD Primary Care Provider Unava ilable Milton Hummel Primary Care Provider Unav ailable [place] Colasajoahnneo, Frances DO Primary Care Pro vider Unavailable Rosalva Stephen MD Primary Care Provider [phone] [place] Colasacco, Frances DO Primary Care Pro vider Unavailable Rosalva Stephen MD Primary Care Provider [phone] Encounter Details Date Type Department Care Team Description 05/30/2019 Pt. Non Urgent Medical Question Physiatry - [address] [address] Na Reardon MD [address] [place] [address] [place] [address] Social History Tobacco Use Types Packs/Day Years [...] Progress Notes * Elizabeth Crowe M.A. - 05/30/2019 3:20 PM EDTFrom: Deb Malcolm To: Na Reardon MD Sent: 05/30/2019 3:10 PM EDT Subject: Knee Pain My right knee pain has been unbearable during these rainy days. It's worsened this year. I'm unableto walk for long periods of time as well. Could I have another MRI done? documented in this encounter Plan of Treatment Not on file documented as of this encounter Visit Diagnoses Not on filedocumented in this encounter Care Teams Sewage Plant Operator Relationship Specialty Start Date End Date Milton Hummel PCP - General Internal Medicine 02/25/19 06/26/19 Rj Lino MD PCP - General Internal Medicine 06/27/19 07/05/19 Milton Hummel PCP - General Internal Medicine 07/06/19 08/04/19 Frances Sung DO PCP - General Internal Medicine 08/05/19 03/05/21 Rosalva Stephen MD [address] [place] [address] PCP - General Internal Medicine 03/06/21 03/11/21 Frances Sung DO PCP - General Internal Medicine 03/12/21 03/31/21 Rosalva Stephen MD [address] [place] [address] PCP - General Internal Medicine 04/01/21 documented as of this encounter
--- OUTSIDE RECORDS SUMMARY | 2025-10-04 07:56 | XMS_ITS | Encounter Summary ---
Author Organization [facility] Prior to 08/12/[address] [place] [address] Care Team Providers Care Boxcar Weigher Name Role Phone Frances Sung DO Primary Care Pro vider Unavailable Rosalva Stephen MD Primary Care Provider [phone] Frances Sung DO Primary Care Pro vider Unavailable Rosalva Stephen MD Primary Care Provider [phone] Encounter Details Date Type Department Care Team Description 08/29/2020 Hospital Medical Records [address] [place] [id number] [place] [address] Social History Tobacco Use Types Packs/Day Years [...] on filedocumented in this encounter Care Teams Boxcar Weigher Relationship Specialty Start Date End Date Frances Sung DO PCP - General Internal Medicine 08/05/19 03/05/21 Rosalva Stephen MD [address] [place] [address] PCP - General Internal Medicine 03/06/21 03/11/21 Frances Sung DO PCP - General Internal Medicine 03/12/21 03/31/21 Rosalva Stephen MD [address] [place] [address] PCP - General Internal Medicine 04/01/21 documented as of this encounter
--- OUTSIDE RECORDS SUMMARY | 2025-10-04 07:56 | XMS_ITS | Encounter Summary ---
Author Organization [facility] Prior to 08/12/[address] [place] [address] Care Team Providers Care Intermediate Accountant Name Role Phone Rosalva Stephen MD Primary Care Provider [phone] Encounter Details Date Type Department Care Team Description 01/14/2022 Pt. Non Urgent Medical Question Adult Medicine [address] [address] Rosalva Stephen MD [address] [place] [address] [id number] Social History Tobacco Use Types Packs/Day Years [...] on filedocumented in this encounter Care Teams Intermediate Accountant Relationship Specialty Start Date End Date Rosalva Stephen MD [address] [place] [address] PCP - General Internal Medicine 04/01/21 documented as of this encounter
--- OUTSIDE RECORDS SUMMARY | 2025-10-04 07:56 | XMS_ITS | Clinical Summary ---
Author Organization [facility] Address [address] [place] [address] Phone Care Team Providers Care Wire Splicer Name Role Phone Betito Rico Primary Care [...] hypermobile type 07/04/2020 Overview (09/29/2024): Follows with [facility] Fibromyalgia 02/03/2019 Depression 02/24/2018 Chronic pain [...] PM EST Sexual Orientation Not on file Last Filed Vital Signs Vital Sign Reading [...] Done Comments Colorectal Cancer Screening: Colonoscopy 1977 Drug Screen 1977 Non-Opioid Controlled Substance Agreement 1977 Hepatitis B Vaccines (1 of 3 - 19+ 3-dose series) 1996 Breast Cancer Screening 02/25/2021 02/25/2019 Cervical Cancer Screening: Pap Smear 03/11/2021 03/11/2018, 03/11/2018 Hepatitis C Screening 09/20/2022 Social Influencers of Health Screening 09/20/2022 Depression Screening 10/12/2024 COVID-19 Vaccine ( - season) 2025 09/02/2022, 03/08/2021, 02/15/2021 Influenza Vaccine [...] RESULTING AGENCY - 03/15/2018 2:38 PM EDT [id number] THINPREP PAP, IMAGED: NEGATIVE FOR SQUAMOUS INTRAEPITHELIAL [...] Recently Relevant to Health Maintenance Insurance MEDICARE [facility] Advance Directives Documents on File Type Date Recorded Patient Network Operations Project Manager Expl anation Health Care Decision (hx) 01/07/2023 AD MESA DIRECTIVE Health Care Decision (hx) 01/07/2023 AD MESA DIRECTIVE Health Care Decision (hx) 01/07/2023 AD MESA DIRECTIVE Care Teams Wire Splicer Relationship Specialty Start Date End Date Betito Rico PA [address] [place] [address] PCP - General Physician Powder Line Repairer 11/08/24
--- OUTSIDE RECORDS SUMMARY | 2025-10-04 07:56 | XMS_ITS | Encounter Summary ---
Author Organization [facility] Prior to 08/12/[address] [place] [address] Care Team Providers Care Client Advocate Name Role Phone Frances Sung DO Primary Care Pro vider Unavailable Milton Hummel Primary Care Provider Unav ailable Rj Lino MD Primary Care Provider Unava ilable Milton Hummel Primary Care Provider Unav ailable Frances Sung DO Primary Care Pro vider Unavailable Rosalva Stephen MD Primary Care Provider [phone] Frances Sung DO Primary Care Pro vider Unavailable Rosalva Stephen MD Primary Care Provider [phone] Encounter Details Date Type Department Care Team Description 09/30/2018 [facility] Medical Records [address] [place] [address] Abstract, Provider Social History Tobacco Use Types [...] on filedocumented in this encounter Care Teams Client Advocate Relationship Specialty Start Date End Date Frances Sung DO PCP - General Internal Medicine 07/12/18 02/24/19 Milton Hummel PCP - General Internal Medicine 02/25/19 06/26/19 Rj Lino MD PCP - General Internal Medicine 06/27/19 07/05/19 Milton Hummel PCP - General Internal Medicine 07/06/19 08/04/19 Frances Sung DO PCP - General Internal Medicine 08/05/19 03/05/21 Rosalva Stephen MD [address] [place] [address] PCP - General Internal Medicine 03/06/21 03/11/21 Frances Sung DO PCP - General Internal Medicine 03/12/21 03/31/21 Rosalva Stephen MD [address] [place] [address] PCP - General Internal Medicine 04/01/21 documented as of this encounter
--- OUTSIDE RECORDS SUMMARY | 2025-10-04 07:56 | XMS_ITS | Encounter Summary ---
Author Organization [facility] Prior to 08/12/[address] [place] [address] Care Team Providers Care Patcher Helper Name Role Phone Frances Sung DO Primary Care Pro vider Unavailable Milton Hummel Primary Care Provider Unav ailable Rj Lino MD Primary Care Provider Unava ilable Milton Hummel Primary Care Provider Unav ailable Frances Sung DO Primary Care Pro vider Unavailable Rosalva Stephen MD Primary Care Provider [phone] Frances Sung DO Primary Care Pro vider Unavailable Rosalva Setphen MD Primary Care Provider [phone] Encounter Details Date Type Department Care Team Description 09/28/2018 Release of Information Medical Records [address] [place] [address] Abstract, Provider Social History Tobacco Use Types [...] on filedocumented in this encounter Care Teams Patcher Helper Relationship Specialty Start Date End Date Frances Sung DO PCP - General Internal Medicine 07/12/18 02/24/19 Milton Hummel PCP - General Internal Medicine 02/25/19 06/26/19 Rj Lino MD PCP - General Internal Medicine 06/27/19 07/05/19 Milton Hummel PCP - General Internal Medicine 07/06/19 08/04/19 Frances Sung DO PCP - General Internal Medicine 08/05/19 03/05/21 Rosalva Stephen MD [address] [place] [address] PCP - General Internal Medicine 03/06/21 03/11/21 Frances Sung DO PCP - General Internal Medicine 03/12/21 03/31/21 Rosalva Stephen MD [address] [place] [address] PCP - General Internal Medicine 04/01/21 documented as of this encounter
--- OUTSIDE RECORDS SUMMARY | 2025-10-04 07:56 | XMS_ITS | Encounter Summary ---
Author Organization [facility] Prior to 08/12/[address] [place] [address] Care Team Providers Care Ground Crew Chief Name Role Phone Frances Sung DO Primary Care Pro vider Unavailable Rosalva Stephen MD Primary Care Provider [phone] Frances Sung DO Primary Care Pro vider Unavailable Rosalva Stephen MD Primary Care Provider [phone] Encounter Details Date Type Department Care Team Description 09/13/2020 Demographer Report Medical Records [address] [place] [address] Toñito Menezes MD Social History Tobacco Use [...] on filedocumented in this encounter Care Teams Ground Crew Chief Relationship Specialty Start Date End Date Frances Sung DO PCP - General Internal Medicine 08/05/19 03/05/21 Rosalva Stephen MD [address] [place] [address] PCP - General Internal Medicine 03/06/21 03/11/21 Frances Sung DO PCP - General Internal Medicine 03/12/21 03/31/21 Rosalva Stephen MD [address] [place] [address] PCP - General Internal Medicine 04/01/21 documented as of this encounter
--- OUTSIDE RECORDS SUMMARY | 2025-10-04 07:56 | XMS_ITS | Encounter Summary ---
Author Organization [facility] Prior to 08/12/[address] [place] [address] Care Team Providers Care Thermocouple Tester Name Role Phone Doug Cosby MD Primary Care Provider Unavail able [place] Colasacco, Frances DO Primary Care Pro vider Unavailable Milton Hummel Primary Care Provider Unav ailable Rj Lino MD Primary Care Provider Unava ilable Milton Hummel Primary Care Provider Unav ailable [place] Colasacco, Frances DO Primary Care Pro vider Unavailable Rosalva Stephen MD Primary Care Provider [phone] [place] Colasacco, Frances DO Primary Care Pro vider Unavailable Rosalva Stephen MD Primary Care Provider [phone] Encounter Details Date Type Department Care Team Description 06/18/2018 [facility] Medical Records [address] [place] [address] Abstract, Provider Social History Tobacco Use Types [...] on filedocumented in this encounter Care Teams Thermocouple Tester Relationship Specialty Start Date End Date Doug [...] Internal Medicine 08/05/19 03/05/21 Rosalva Stephen MD [address] [place] [address] PCP - General Internal Medicine 03/06/21 03/11/21 Frances Sung DO PCP - General Internal Medicine 03/12/21 03/31/21 Rosalva Stephen MD [address] [place] [address] PCP - General Internal Medicine 04/01/21 documented as of this encounter
--- OUTSIDE RECORDS SUMMARY | 2025-10-04 07:56 | XMS_ITS | Encounter Summary ---
Author Organization [facility] Prior to 08/12/[address] [place] [address] Care Team Providers Care Manager Employee Benefits Name Role Phone Frances Sung DO Primary Care Pro vider Unavailable Rosalva Stephen MD Primary Care Provider [phone] Frances Sung DO Primary Care Pro vider Unavailable Rosalva Stephen MD Primary Care Provider [phone] Encounter Details Date Type Department Care Team Description 08/29/2020 Hospital Medical Records [address] [place] [id number] [place] [address] Social History Tobacco Use Types Packs/Day Years [...] filedocumented in this encounter Care Teams Manager Employee Benefits Relationship Specialty Start Date End Date Frances Sung DO PCP - General Internal Medicine 08/05/19 03/05/21 Rosalva Stephen MD [address] [place] [address] PCP - General Internal Medicine 03/06/21 03/11/21 Frances Sung DO PCP - General Internal Medicine 03/12/21 03/31/21 Rosalva Stephen MD [address] [place] [address] PCP - General Internal Medicine 04/01/21 documented as of this encounter
--- OUTSIDE RECORDS SUMMARY | 2025-10-04 07:56 | XMS_ITS | Encounter Summary ---
Author Organization [facility] Prior to 08/12/[address] [place] [address] Care Team Providers Care Vice President Tax Name Role Phone Frances Sung DO Primary Care Pro vider Unavailable Rosalva Stephen MD Primary Care Provider [phone] Frances Sung DO Primary Care Pro vider Unavailable Rosalva Stephen MD Primary Care Provider [phone] Encounter Details Date Type Department Care Team Description 10/12/2019 Refill Physiatry - [address] [address] Na Reardon MD [address] [place] [address] [place] [id number] Social History Tobacco Use Types Packs/Day Years [...] knee documented in this encounter Care Teams Vice President Tax Relationship Specialty Start Date End Date Frances Sung DO PCP - General Internal Medicine 08/05/19 03/05/21 Rosalva Stephen MD [address] [place] [address] PCP - General Internal Medicine 03/06/21 03/11/21 Frances Sung DO PCP - General Internal Medicine 03/12/21 03/31/21 Rosalva Stephen MD [address] [place] [address] PCP - General Internal Medicine 04/01/21 documented as of this encounter
--- OUTSIDE RECORDS SUMMARY | 2025-10-04 07:56 | XMS_ITS | Encounter Summary ---
Author Organization [facility] Prior to 08/12/[address] [place] [address] Care Team Providers Care Director Of Pediatric Rehabilitation Name Role Phone Sharla Gaytan, Frances DO Primary Care Pro vider Unavailable Milton Hummel Primary Care Provider Unav ailable Rj Lino MD Primary Care Provider Unava ilable Milton Hummel Primary Care Provider Unav ailable Sharla Westo, Frances DO Primary Care Pro vider Unavailable Rosalva Stephen MD Primary Care Provider [phone] Krakojob Coltwylao, Frances DO Primary Care Pro vider Unavailable Rosalva Stephen MD Primary Care Provider [phone] Encounter Details Date Type Department Care Team Description 08/29/2018 Pt. Non Urgent Medical Question Physiatry - [address] [address] Na Reardon MD [address] [place] [address] Dr [place] [id number] Social History Tobacco Use Types Packs/Day Years [...] Progress Notes * Susan Nielson M.A. - 08/30/2018 8:31 AM ESTFrom: Deb Malcolm To: Na Reardon MD Sent: 08/29/2018 3:43 PM EST Subject: ER I called my mother from [place] and she drove up to watch my son while I went to the [place] ER. I made them aware I see a rehabilitation counselor. They prescribed me 5mg oxycodone q6h prn, 10 tablets. I wanted to let you know as soon as they did. documented in this encounter Plan of Treatment Not on file documented as of this encounter Visit Diagnoses Not on filedocumented in this encounter Care Teams Director Of Pediatric Rehabilitation Relationship Specialty Start Date End Date Frances Sung DO PCP - General Internal Medicine 07/12/18 02/24/19 Milton Hummel PCP - General Internal Medicine 02/25/19 06/26/19 Rj Lino MD PCP - General Internal Medicine 06/27/19 07/05/19 Milton Hummel PCP - General Internal Medicine 07/06/19 08/04/19 Frances Sung DO PCP - General Internal Medicine 08/05/19 03/05/21 Rosalva Stephen MD [address] [place] [address] PCP - General Internal Medicine 03/06/21 03/11/21 Frances Sung DO PCP - General Internal Medicine 03/12/21 03/31/21 Rosalva Stephen MD [address] [place] [address] PCP - General Internal Medicine 04/01/21 documented as of this encounter
--- OUTSIDE RECORDS SUMMARY | 2025-10-04 07:56 | XMS_ITS | Encounter Summary ---
Author Organization [facility] Prior to 08/12/[address] [place] [address] Care Team Providers Care Director Of Advertising Sales Name Role Phone Frances Sung DO Primary Care Pro vider Unavailable Rosalva Stephen MD Primary Care Provider [phone] Frances Sung DO Primary Care Pro vider Unavailable Rosalva Stephen MD Primary Care Provider [phone] Encounter Details Date Type Department Care Team Description 10/12/2019 Refill OBGYN - [place] [address] [place] [address] Jeannine Ruelas, [facility] [address] [place] [address] Social History Tobacco Use Types Packs/Day Years [...] in this encounter Care Teams Director Of Advertising Sales Relationship Specialty Start Date End Date Frances Sung DO PCP - General Internal Medicine 08/05/19 03/05/21 Rosalva Stephen MD [address] [place] [address] [phone] PCP - General Internal Medicine 03/06/21 03/11/21 Frances Sung DO PCP - General Internal Medicine 03/12/21 03/31/21 Rosalva Stephen MD [address] [place] [address] [id number] PCP - General Internal Medicine 04/01/21 documented as of this encounter
--- OUTSIDE RECORDS SUMMARY | 2025-10-04 07:56 | XMS_ITS | Encounter Summary ---
Author Organization [facility] Prior to 08/12/[address] [place] [address] Care Team Providers Care Short Story Writer Name Role Phone Frances Sung DO Primary Care Pro vider Unavailable Rosalva Stephen MD Primary Care Provider [phone] Frances Sung DO Primary Care Pro vider Unavailable Rosalva Stephen MD Primary Care Provider [phone] Encounter Details Date Type Department Care Team Description 09/25/2020 [facility] [address] [place] [address] Md Natasha Social History Tobacco Use Types [...] on filedocumented in this encounter Care Teams Short Story Writer Relationship Specialty Start Date End Date Frances Sung DO PCP - General Internal Medicine 08/05/19 03/05/21 Rosalva Stephen MD [address] [place] [address] PCP - General Internal Medicine 03/06/21 03/11/21 Frances Sung DO PCP - General Internal Medicine 03/12/21 03/31/21 Rosalva Stephen MD [address] [place] [address] [phone] PCP - General Internal Medicine 04/01/21 documented as of this encounter
--- OUTSIDE RECORDS SUMMARY | 2025-10-04 07:56 | XMS_ITS | Encounter Summary ---
Author Organization [facility] Prior to 08/12/[address] [place] [address] Care Team Providers Care Research Physician Name Role Phone Frances Sung DO Primary Care Pro vider Unavailable Milton Hummel Primary Care Provider Unav ailable Rj Lino MD Primary Care Provider Unava ilable Milton Hummel Primary Care Provider Unav ailable Marvin Sungabela DO Primary Care Pro vider Unavailable Rosalva Stephen MD Primary Care Provider [phone] KraFrances Patiño DO Primary Care Pro vider Unavailable Rosalva Stephen MD Primary Care Provider [phone] Encounter Details Date Type Department Care Team Description 11/05/2018 Pt. Referral Request [facility] Jamey [address] [place] [address] Md Jamey Social History Tobacco Use Types [...] on filedocumented in this encounter Care Teams Research Physician Relationship Specialty Start Date End Date Frances Sung DO PCP - General Internal Medicine 07/12/18 02/24/19 Milton Hummel PCP - General Internal Medicine 02/25/19 06/26/19 Rj Lino MD PCP - General Internal Medicine 06/27/19 07/05/19 Milton Hummel PCP - General Internal Medicine 07/06/19 08/04/19 Frances Sung DO PCP - General Internal Medicine 08/05/19 03/05/21 Rosalva Stephen MD [address] [place] [address] PCP - General Internal Medicine 03/06/21 03/11/21 Frances Sung DO PCP - General Internal Medicine 03/12/21 03/31/21 Rosalva Stephen MD [address] [place] [address] PCP - General Internal Medicine 04/01/21 documented as of this encounter
--- OUTSIDE RECORDS SUMMARY | 2025-10-04 07:56 | XMS_ITS | Encounter Summary ---
Author Organization [facility] Prior to 08/12/[address] [place] [address] Care Team Providers Care Circuit Judge Name Role Phone Doug Cosby MD Primary Care Provider Unavail able [place] Colasacco, Frances DO Primary Care Pro vider Unavailable Milton Hummel Primary Care Provider Unav ailable Rj Lino MD Primary Care Provider Unava ilable Milton Hummel Primary Care Provider Unav ailable [place] Colasacco, Frances DO Primary Care Pro vider Unavailable Rosalva Stephen MD Primary Care Provider [phone] [place] Colasacco, Frances DO Primary Care Pro vider Unavailable Rosalva Stephen MD Primary Care Provider [phone] Encounter Details Date Type Department Care Team Description 05/14/2018 [facility] Medical Records [address] [place] [address] Abstract, Provider Social History Tobacco Use Types [...] on filedocumented in this encounter Care Teams Circuit Judge Relationship Specialty Start Date End Date Doug [...] Medicine 08/05/19 03/05/21 Rosalva Stephen MD [address] [place] [address] PCP - General Internal Medicine 03/06/21 03/11/21 Frances Sung DO PCP - General Internal Medicine 03/12/21 03/31/21 Rosalva Stephen MD [address] [place] [address] PCP - General Internal Medicine 04/01/21 documented as of this encounter
--- OUTSIDE RECORDS SUMMARY | 2025-10-04 07:56 | XMS_ITS | Encounter Summary ---
Author Organization [facility] Prior to 08/12/[address] [place] [address] Care Team Providers Care Highway Patrol Commander Name Role Phone Doug Cosby MD Primary Care Provider Unavail able [place] Colasacco, Frances DO Primary Care Pro vider Unavailable Milton Hummel Primary Care Provider Unav ailable Rj Lino MD Primary Care Provider Unava ilable Milton Hummel Primary Care Provider Unav ailable [place] Colasacco, Frances DO Primary Care Pro vider Unavailable Rosalva Stephen MD Primary Care Provider [phone] [place] Colasacco, Frances DO Primary Care Pro vider Unavailable Rosalva Stephen MD Primary Care Provider [phone] Encounter Details Date Type Department Care Team Description 06/23/2018 [facility] Medical Records [address] [place] [address] Abstract, Provider Social History Tobacco Use Types [...] on filedocumented in this encounter Care Teams Highway Patrol Commander Relationship Specialty Start Date End Date Doug [...] Medicine 08/05/19 03/05/21 Rosalva Stephen MD [address] [place] [address] PCP - General Internal Medicine 03/06/21 03/11/21 Frances Sung DO PCP - General Internal Medicine 03/12/21 03/31/21 Rosalva Stephen MD [address] [place] [address] PCP - General Internal Medicine 04/01/21 documented as of this encounter
--- OUTSIDE RECORDS SUMMARY | 2025-10-04 07:56 | XMS_ITS | Encounter Summary ---
Author Organization [facility] Prior to 08/12/[address] [place] [address] Care Team Providers Care Physician Liaison Name Role Phone Sharla Gaytan, Frances DO Primary Care Pro vider Unavailable Milton Hummel Primary Care Provider Unav ailable Rj Lino MD Primary Care Provider Unava ilable Milton Hummel Primary Care Provider Unav ailable Sharla Colpriyankacco, Frances DO Primary Care Pro vider Unavailable Rosalva Stephen MD Primary Care Provider [phone] Krakojob Coltwylao, Frances DO Primary Care Pro vider Unavailable Rosalva Stephen MD Primary Care Provider [phone] Encounter Details Date Type Department Care Team Description 11/02/2018 Refill Physiatry - [address] [address] Na Reardon MD [address] [place] [address] Dr ARTI [place] [id number] Social History Tobacco Use Types Packs/Day Years [...] Nielson M.A. - 11/03/2018 10:10 AM ESTFrom: Dbe Malcolm To: Na Reardon MD Sent: 11/02/2018 5:52 PM EST Subject: Medication Renewal Request Original authorizing provider: MD Deb Gomes would like a refill of the following medications: oxycodone-acetaminophen (PERCOCET) 5-325 MG per tablet [Na Reardon MD] Preferred pharmacy: [facility] [address] [place] [address] AT [facility] Comment: documented in this encounter Plan of Treatment Not on file documented as of this encounter Visit Diagnoses Diagnosis Chronic left shoulder pain Pain in joint, shoulder region History of cervical spinal surgery Personal history of surgery to other organs Chronic pain of right knee documented in this encounter Care Teams Physician Liaison Relationship Specialty Start Date End Date Frances Sung DO PCP - General Internal Medicine 07/12/18 02/24/19 Milton Hummel PCP - General Internal Medicine 02/25/19 06/26/19 Rj Lino MD PCP - General Internal Medicine 06/27/19 07/05/19 Milton Hummel PCP - General Internal Medicine 07/06/19 08/04/19 Frances Sung DO PCP - General Internal Medicine 08/05/19 03/05/21 Rosalva Stephen MD [address] [place] [address] PCP - General Internal Medicine 03/06/21 03/11/21 Frances Sung DO PCP - General Internal Medicine 03/12/21 03/31/21 Rosalva Stephen MD [address] [place] [address] PCP - General Internal Medicine 04/01/21 documented as of this encounter
--- OUTSIDE RECORDS SUMMARY | 2025-10-04 07:56 | XMS_ITS | Encounter Summary ---
Author Organization [facility] Prior to 08/12/[address] [place] [address] Care Team Providers Care Manager Environmental Affairs Name Role Phone Sharla Gaytan, Frances DO Primary Care Pro vider Unavailable Milton Hummel Primary Care Provider Unav ailable Rj Lino MD Primary Care Provider Unava ilable Milton Hummel Primary Care Provider Unav ailable Sharla Westo, Frances DO Primary Care Pro vider Unavailable Rosalva Stephen MD Primary Care Provider [phone] Krakojob Coltwylao, Frances DO Primary Care Pro vider Unavailable Rosalva Stephen MD Primary Care Provider [phone] Encounter Details Date Type Department Care Team Description 08/29/2018 Pt. Non Urgent Medical Question Physiatry - [address] [address] Na Reardon MD [address] [place] [address] Dr ARTI [place] [id number] Social History Tobacco Use Types Packs/Day Years [...] Notes * Susan Nielson M.A. - 08/30/2018 8:32 AM ESTFrom: Deb Gold To: Na Reardon MD Sent: 08/29/2018 1:43 PM EST Subject: intense pain I have taken my neurontin, baclofen, and 10mg percocet as well as the suldinac and I'm still in intense pain. It feels like ALL of my bones and joints are hurting. I can't go to the ER because I haveno family to watch my 3 year old son but I honestly feel like I should be going to the ER and wouldif I didn't have him today. I also feel like if I want able to go, they wouldn't do anything because I've already taken so many medications but EVERY SINGLE BONE AND JOINT IN MY BODY HURTS. The most intense starts at the top of my neck to my shoulders and down my spine. I wish I had an epidural or anything to not feel this pain. I don't know why I feel like this today but I do. Is there any way Icould get an epidural? I had one before she it worked for a few months. With these medications, it should be helping my pain and I'm not understanding why it's not. Please help me figure this out. I'm 43 and too young to be living in this much pain. I have a 3 year old to care for. No one should have to live with this much pain. I twisted my left ankle Nov , went to the [place] [facility], they said it was sprained, I've torn a ligament in the right ankle be in the past so I know the routine. I've been placed on crutches again. It still hurts all over my able and top of my foot all the way across to about b and inch or so from my toes. I'm still icing it, compressing it using the gaurav bandage they gave me and using and ankle brace I bought exactly as the one I used years ago with my other ankle. They also found a bone fragment but stated it looked like an old injury. This is only bothering me slightly compared to the neck,shoulders and back pain. Rating it on a scale, it's a 10. Honestly, I wish I could be put to sleep medically because this pain is the most intense I've ever felt. documented in this encounter Plan of Treatment Not on file documented as of this encounter Visit Diagnoses Not on filedocumented in this encounter Care Teams Manager Environmental Affairs Relationship Specialty Start Date End Date Frances Sung DO PCP - General Internal Medicine 07/12/18 02/24/19 Milton Hummel PCP - General Internal Medicine 02/25/19 06/26/19 Rj Lino MD PCP - General Internal Medicine 06/27/19 07/05/19 Milton Hummel PCP - General Internal Medicine 07/06/19 08/04/19 Frances Sung DO PCP - General Internal Medicine 08/05/19 03/05/21 Rosalva Stephen MD [address] [place] [address] [id number] PCP - General Internal Medicine 03/06/21 03/11/21 Frances Sung DO PCP - General Internal Medicine 03/12/21 03/31/21 Rosalva Stephen MD [address] [place] [address] [id number] PCP - General Internal Medicine 04/01/21 documented as of this encounter
--- OUTSIDE RECORDS SUMMARY | 2025-10-04 07:56 | XMS_ITS | Encounter Summary ---
Author Organization [facility] Prior to 08/12/[address] [place] [address] Care Team Providers Care Biscuit Factory Worker Name Role Phone Frances Sung DO Primary Care Pro vider Unavailable Rosalva Stephen MD Primary Care Provider [phone] Frances Sung DO Primary Care Pro vider Unavailable Rosalva Stephen MD Primary Care Provider [phone] Encounter Details Date Type Department Care Team Description 09/17/2020 Home Health Certification Medical Records [address] [place] [address] [facility], [place] [address] Social History Tobacco Use Types Packs/Day Years [...] on filedocumented in this encounter Care Teams Biscuit Factory Worker Relationship Specialty Start Date End Date Krak[place] Colasacco, Frances, DO PCP - General Internal Medicine 08/05/19 03/05/21 Rosalva Stephen MD [address] [place] [address] [id number] PCP - General Internal Medicine 03/06/21 03/11/21 Frances Sung, PCP - General Internal Medicine 03/12/21 03/31/21 Rosalva Stephen MD [address] [place] [address] [id number] PCP - General Internal Medicine 04/01/21 documented as of this encounter
--- OUTSIDE RECORDS SUMMARY | 2025-10-04 07:56 | XMS_ITS | Encounter Summary ---
Author Organization [facility] Prior to 08/12/[address] [place] [address] Care Team Providers Care Skills Instructor Name Role Phone Frances Sung DO Primary Care Pro vider Unavailable Rosalva Stephen MD Primary Care Provider [phone] Frances Sung DO Primary Care Pro vider Unavailable Rosalva Stephen MD Primary Care Provider [phone] Encounter Details Date Type Department Care Team Description [facility]/13[facility] [address] [address] Na Reardon MD [address] [place] [address] Dr CHI [place] [id number] Social History Tobacco Use Types Packs/Day Years [...] Telephone Encounter - Elizabeth Crowe M.A. - 09/15/2019 11:28 AM EST Rx placed in Physiatry ppu. * Telephone Encounter - Na Reardon MD - 09/15/2019 11:22 AM EST [facility] report reviewed today for Deb Malcolm * Telephone Encounter - Susan Nielson M.A. - 09/14/2019 11:08 AM EST Last ov 08/26/19 Last refill 08/18/19 Next ov 11/25/19 Contracted Lab Results Component Value Date URBENZO NONE DETECTED 07/06/2019 UROPIATES POSITIVE 07/06/2019 URBARBITUATE NONE DETECTED 07/06/2019 PAINAMPHETAM POSITIVE 07/06/2019 URAMPHETAMIN POSITIVE 10/01/2018 PAINCOCAINE NONE DETECTED 07/06/2019 URCOCAINE NEGATIVE 10/01/2018 PAINCANNABIN POSITIVE 07/06/2019 URMARIJUANA NEGATIVE 10/01/2018 Mass pat printed documented in this encounter Plan of Treatment Not on file documented as of this encounter Visit Diagnoses Diagnosis Chronic left shoulder pain Pain in joint, shoulder region History of cervical spinal surgery Personal history of surgery to other organs Chronic pain of right knee documented in this encounter Care Teams Skills Instructor Relationship Specialty Start Date End Date Frances Sung DO PCP - General Internal Medicine 08/05/19 03/05/21 Rosalva Stephen MD [address] [place] [id number] PCP - General Internal Medicine 03/06/21 03/11/21 Frances Sung DO PCP - General Internal Medicine 03/12/21 03/31/21 Rosalva Stephen MD [address] [place] [address] PCP - General Internal Medicine 04/01/21 documented as of this encounter
--- OUTSIDE RECORDS SUMMARY | 2025-10-04 07:56 | XMS_ITS | Encounter Summary ---
Author Organization [facility] Prior to 08/12/[address] [place] [address] Care Team Providers Care It Business Systems Analyst Name Role Phone Hector Morris MD Primary Care Provider Unavail able [facility], [facility] Primary Care Provider Unavailabl [...] Unavailable Rosalva Stephen MD Primary Care Provider [phone] [place]rak[place] Colasacco, Frances DO Primary Care Pro vider Unavailable Rosalva Stephen MD Primary Care Provider [phone] Encounter Details Date Type Department Care Team Description 02/17/2014 Pt. Non Urgent Medic al Question Medicine/Pediatrics - [address] [address] Hector Morris MD Social History Tobacco Use [...] copy of the echo report by the seismology technical officer. How can I go about obtaining that copy? documented in this encounter Plan of Treatment Not on file documented as of this encounter Visit Diagnoses Not on filedocumented in this encounter Care Teams It Business Systems Analyst Relationship Specialty Start Date End Date Hector Morris MD PCP - General Internal Medicine 10/18/13 01/31/16 [facility] PCP - General Internal Medicine 02/01/16 [...] Medicine 08/05/19 03/05/21 Rosalva Stephen MD [address] [place] [address] PCP - General Internal Medicine 03/06/21 03/11/21 Frances Sung, DO PCP - General Internal Medicine 03/12/21 03/31/21 Rosalva Stephen MD [address] [place] [id number] PCP - General Internal Medicine 04/01/21 documented as of this encounter
--- OUTSIDE RECORDS SUMMARY | 2025-10-04 07:56 | XMS_ITS | Encounter Summary ---
Author Organization [facility] Prior to 08/12/[address] [place] [address] Care Team Providers Care C Architect Name Role Phone Frances Sung DO Primary Care Pro vider Unavailable Rosalva Stephen MD Primary Care Provider [phone] Frances Sung DO Primary Care Pro vider Unavailable Rosalva Stephen MD Primary Care Provider [phone] Encounter Details Date Type Department Care Team Description 09/20/2020 Pt. Non Urgent Medical Question Rheumatology - [address] [address] Loyd Langston PA Social History Tobacco Use [...] Progress Notes * Ana Briones L.P.N. - 09/20/2020 1:05 PM ESTFrom: Deb Malcolm To: Loyd Langston PA-C Sent: 09/20/2020 12:43 PM EST Subject: Muscle relaxer I'm picking up my prescription for the muscle relaxer that was ordered but I wanted to know if I could have a full month's prescription. The prescription sent to the pharmacy is only for 10 days. documented in this encounter Plan of Treatment Not on file documented as of this encounter Visit Diagnoses Not on filedocumented in this encounter Care Teams C Architect Relationship Specialty Start Date End Date Frances Sung DO PCP - General Internal Medicine 08/05/19 03/05/21 Rosalva Stephen MD [address] [place] [address] PCP - General Internal Medicine 03/06/21 03/11/21 Frances Sung DO PCP - General Internal Medicine 03/12/21 03/31/21 Rosalva Stephen MD [address] [place] [address] PCP - General Internal Medicine 04/01/21 documented as of this encounter
--- OUTSIDE RECORDS SUMMARY | 2025-10-04 07:56 | XMS_ITS | Encounter Summary ---
Author Organization [facility] Prior to 08/12/[address] [place] [address] Care Team Providers Care Pens And Pencils Dipper Name Role Phone Frances Sung DO Primary Care Pro vider Unavailable Milton Hummel Primary Care Provider Unav ailable Rj Lino MD Primary Care Provider Unava ilable Milton Hummel Primary Care Provider Unav ailable Sharla Gaytan, Frances DO Primary Care Pro vider Unavailable Rosalva Stephen MD Primary Care Provider [phone] Frances Sung DO Primary Care Pro vider Unavailable Rosalva Stephen MD Primary Care Provider [phone] Encounter Details Date Type Department Care Team Description 09/05/2018 Pt. Non Urgent Medic al Question Physiatry - [address] [address] Alejandro William PA-C Social History Tobacco Use [...] on filedocumented in this encounter Care Teams Pens And Pencils Dipper Relationship Specialty Start Date End Date Anup Sungla, PCP - General Internal Medicine 07/12/18 02/24/19 Milton Hummel PCP - General Internal Medicine 02/25/19 06/26/19 Rj Lino MD PCP - General Internal Medicine 06/27/19 07/05/19 Milton Hummel PCP - General Internal Medicine 07/06/19 08/04/19 Frances Sung, DO PCP - General Internal Medicine 08/05/19 03/05/21 Rosalva Stephen MD [address] [place] [address] PCP - General Internal Medicine 03/06/21 03/11/21 Frances Sung, PCP - General Internal Medicine 03/12/21 03/31/21 Rosalva Stephen MD [address] [place] [address] PCP - General Internal Medicine 04/01/21 documented as of this encounter
--- OUTSIDE RECORDS SUMMARY | 2025-10-04 07:56 | XMS_ITS | Encounter Summary ---
Author Organization [facility] Prior to 08/12/[address] [place] [address] Care Team Providers Care Tube Balancer Name Role Phone Rosalva Stephen MD Primary Care Provider [phone] Encounter Details Date Type Department Care Team Description 12/12/2021 Telephone Gastroenterology - [place] [address] [facility] [address] [place] [address] Michael Hsu MD [address] [place] [address] Social History Tobacco Use Types Packs/Day Years [...] encounter Miscellaneous Notes * Telephone Encounter - Elia Casillas - 12/12/2021 8:58 AM EST Patient did not show up to her appt, I have been unable to reach this patient by phone. A letter is being sent. documented in this encounter Plan of Treatment Not on file documented as of this encounter Visit Diagnoses Not on filedocumented in this encounter Care Teams Tube Balancer Relationship Specialty Start Date End Date Rosalva Stephen MD [address] [place] [address] PCP - General Internal Medicine 04/01/21 documented as of this encounter
--- OUTSIDE RECORDS SUMMARY | 2025-10-04 07:56 | XMS_ITS | Encounter Summary ---
Author Organization [facility] Prior to 08/12/[address] [place] [address] Care Team Providers Care Electrical System Specialist Name Role Phone Milton Hummel Primary Care Provider Unav ailRj Pyle MD Primary Care Provider Unava ilMilton Alicea Primary Care Provider Unav ailable Denicekojbo Coltwylao, Frances DO Primary Care Pro vider Unavailable Rosalva Stephen MD Primary Care Provider [place] Colasacco, Frances DO Primary Care Pro vider Unavailable Rosalva Stephen MD Primary Care Provider [phone] Encounter Details Date Type Department Care Team Description 05/02/2019 Hospital Medical Records [address] [place] [address] Red Quach, Social History Tobacco Use Types [...] on filedocumented in this encounter Care Teams Electrical System Specialist Relationship Specialty Start Date End Date Milton Hummel PCP - General Internal Medicine 02/25/19 06/26/19 Rj Lino MD PCP - General Internal Medicine 06/27/19 07/05/19 Milton Hummel PCP - General Internal Medicine 07/06/19 08/04/19 Frances Sung DO PCP - General Internal Medicine 08/05/19 03/05/21 Rosalva Stephen MD [address] [place] [address] PCP - General Internal Medicine 03/06/21 03/11/21 Frances Sung DO PCP - General Internal Medicine 03/12/21 03/31/21 Rosalva Stephen MD [address] [place] [address] PCP - General Internal Medicine 04/01/21 documented as of this encounter
--- OUTSIDE RECORDS SUMMARY | 2025-10-04 07:56 | XMS_ITS | Encounter Summary ---
Author Organization [facility] Prior to 08/12/[address] [place] [address] Care Team Providers Care Buttonholer Name Role Phone Rosalva Stephen MD Primary Care Provider [phone] Encounter Details Date Type Department Care Team Description 12/27/2021 Hospital Medical Records [address] [place] [address] Social History Tobacco Use Types Packs/Day Years [...] on filedocumented in this encounter Care Teams Buttonholer Relationship Specialty Start Date End Date Rosalva Stehpen MD [address] [place], [place] [phone] PCP - General Internal Medicine 04/01/21 documented as of this encounter
--- OUTSIDE RECORDS SUMMARY | 2025-10-04 07:56 | XMS_ITS | Encounter Summary ---
Author Organization [facility] Prior to 08/12/[address] [place] [address] Care Team Providers Care Phlebotomist Name Role Phone Frances Sung DO Primary Care Pro vider Unavailable Rosalva Stephen MD Primary Care Provider [phone] Frances Sung DO Primary Care Pro vider Unavailable Rosalva Stephen MD Primary Care Provider [phone] Encounter Details Date Type Department Care Team Description 10/17/2019 [facility] Medical Records [address] [place] [address] Abstract, Provider Social History Tobacco Use Types [...] on filedocumented in this encounter Care Teams Phlebotomist Relationship Specialty Start Date End Date Frances Sung DO PCP - General Internal Medicine 08/05/19 03/05/21 Rosalva Stephen MD [address] [place] [address] [phone] PCP - General Internal Medicine 03/06/21 03/11/21 Frances Sung DO PCP - General Internal Medicine 03/12/21 03/31/21 Rosalva Stephen MD [address] [place] [address] PCP - General Internal Medicine 04/01/21 documented as of this encounter
--- OUTSIDE RECORDS SUMMARY | 2025-10-04 07:56 | XMS_ITS | Encounter Summary ---
Author Organization [facility] Prior to 08/12/[address] [place] [address] Care Team Providers Care Adobe Architect Name Role Phone [place] Colasacco, Frances [...] Unavailable Rosalva Stephen MD Primary Care Provider [phone] [place] Colasacco, Frances DO Primary Care Pro vider Unavailable Rosalva Stephen MD Primary Care Provider [phone] Reason for Visit * Reason Comments E-prescribe Rx Request Encounter Details Date Type Department Care Team Description 04/14/2018 Refill Physiatry - [address] [address] Sixto Olmedo DO E-prescribe Rx Request Social [...] on filedocumented in this encounter Care Teams Adobe Architect Relationship Specialty Start Date End Date [...] Medicine 08/05/19 03/05/21 Rosalva Stephen MD [address] [place] [address] PCP - General Internal Medicine 03/06/21 03/11/21 Frances Sung DO PCP - General Internal Medicine 03/12/21 03/31/21 Rosalva Stephen MD [address] [place] [address] PCP - General Internal Medicine 04/01/21 documented as of this encounter
--- OUTSIDE RECORDS SUMMARY | 2025-10-04 07:56 | XMS_ITS | Encounter Summary ---
Author Organization [facility] Prior to 08/12/[address] [place] [address] Care Team Providers Care Livestock Haulier Name Role Phone Rosalva Stephen MD Primary Care Provider [phone] Encounter Details Date Type Department Care Team Description 01/08/2022 Pt. Referral Request [facility] Jamey [address] [place] [address] [phone] Md Jamey Social History Tobacco Use Types [...] on filedocumented in this encounter Care Teams Livestock Haulier Relationship Specialty Start Date End Date Rosalva Stephen MD [address] [place] [address] [phone] PCP - General Internal Medicine 04/01/21 documented as of this encounter
--- OUTSIDE RECORDS SUMMARY | 2025-10-04 07:56 | XMS_ITS | Encounter Summary ---
Author Organization [facility] Prior to 08/12/[address] [place] [address] Care Team Providers Care Conformal Pad Former Name Role Phone Frances Sung DO Primary Care Pro vider Unavailable Rosalva Stephen MD Primary Care Provider [phone] Frances Sung DO Primary Care Pro vider Unavailable Rosalva Stephen MD Primary Care Provider [phone] Encounter Details Date Type Department Care Team Description 09/20/2020 [facility] Laboratory Assistant Report Medical Records [address] [place] [address] James Ledesma MD Social History Tobacco Use [...] on filedocumented in this encounter Care Teams Conformal Pad Former Relationship Specialty Start Date End Date Frances Sung DO PCP - General Internal Medicine 08/05/19 03/05/21 Rosalva Stephen MD [address] [place] [address] PCP - General Internal Medicine 03/06/21 03/11/21 Frances Sung DO PCP - General Internal Medicine 03/12/21 03/31/21 Rosalva Stephen MD [address] [place] [address] PCP - General Internal Medicine 04/01/21 documented as of this encounter
--- OUTSIDE RECORDS SUMMARY | 2025-10-04 07:56 | XMS_ITS | Encounter Summary ---
Author Organization [facility] Prior to 08/12/[address] [place] [address] Care Team Providers Care Machine Presser Name Role Phone Sharla Gaytan, Frances DO Primary Care Pro vider Unavailable Milton Hummel Primary Care Provider Unav ailable Rj Lino MD Primary Care Provider Unava ilable Milton Hummel Primary Care Provider Unav ailable Sharla Westo, Frances DO Primary Care Pro vider Unavailable Rosalva Stephen MD Primary Care Provider [phone] Krakojob Coltwylao, Frances DO Primary Care Pro vider Unavailable Rosalva Stephen MD Primary Care Provider [phone] Encounter Details Date Type Department Care Team Description 09/05/2018 Pt. Non Urgent Medical Question Physiatry - [address] [address] Na Reardon MD [address] [place] [address] Dr ARTI [place] [id number] Social History Tobacco Use Types Packs/Day Years [...] Progress Notes * Elizabeth Hendricks - 09/06/2018 9:48 AM ESTFrom: Deb Malcolm To: Na Reardon MD Sent: 09/05/2018 2:43 AM EST Subject: medication The toradol isn't really helping. Between the cold and the rain, my back and my foot, my knee, shoulder and ankles, I'm in so much pain that the Percocet 3xs a day isn't helping. Would it be possibleto take it 4xs a day instead, at least until Ortho evaluates my foot/ankle? Maybe that's the reasonmy medication isn't working like it should, because I'm having acute pain on top of my chronic pain? documented in this encounter Plan of Treatment Not on file documented as of this encounter Visit Diagnoses Not on filedocumented in this encounter Care Teams Machine Presser Relationship Specialty Start Date End Date Frances Sung DO PCP - General Internal Medicine 07/12/18 02/24/19 Milton Hummel PCP - General Internal Medicine 02/25/19 06/26/19 Rj Lino MD PCP - General Internal Medicine 06/27/19 07/05/19 Milton Hummel PCP - General Internal Medicine 07/06/19 08/04/19 Frances Sung DO PCP - General Internal Medicine 08/05/19 03/05/21 Rosalva Stephen MD [address] [place] [address] PCP - General Internal Medicine 03/06/21 03/11/21 Frances Sung DO PCP - General Internal Medicine 03/12/21 03/31/21 Rosalva Stephen MD [address] [place] [address] PCP - General Internal Medicine 04/01/21 documented as of this encounter
--- OUTSIDE RECORDS SUMMARY | 2025-10-04 07:56 | XMS_ITS | Encounter Summary ---
Author Organization [facility] Prior to 08/12/[address] [place] [address] Care Team Providers Care Component Overhaul Operator Name Role Phone Milton Hummel Primary Care Provider Unav ailable Rj Lino MD Primary Care Provider Unava ilable Milton Hummel Primary Care Provider Unav ailable [place] Colasacco, Frances DO Primary Care Pro vider Unavailable Rosalva Stephen MD Primary Care Provider [phone] [place] Colasacco, Frances DO Primary Care Pro vider Unavailable Rosalva Stephen MD Primary Care Provider [phone] Encounter Details Date Type Department Care Team Description 05/18/2019 Orders Only Medical Records [address] [place] [address] Rae Carpenter PA-C Social History Tobacco Use [...] on filedocumented in this encounter Care Teams Component Overhaul Operator Relationship Specialty Start Date End Date Milton Hummel PCP - General Internal Medicine 02/25/19 06/26/19 Rj Lino MD PCP - General Internal Medicine 06/27/19 07/05/19 Milton Hummel PCP - General Internal Medicine 07/06/19 08/04/19 Frances Sung DO PCP - General Internal Medicine 08/05/19 03/05/21 Rosalva Stephen MD [address] [place] [address] PCP - General Internal Medicine 03/06/21 03/11/21 Frances Sung DO PCP - General Internal Medicine 03/12/21 03/31/21 Rosalva Stephen MD [address] [place] [address] PCP - General Internal Medicine 04/01/21 documented as of this encounter
--- OUTSIDE RECORDS SUMMARY | 2025-10-04 07:56 | XMS_ITS | Encounter Summary ---
Author Organization [facility] Prior to 08/12/[address] [place] [address] Care Team Providers Care Roofing Technician Name Role Phone Milton Hummel Primary Care Provider Unav ailable Rj Lino MD Primary Care Provider Unava ilable Milton Hummel Primary Care Provider Unav ailable [place] Colasacco, Frances DO Primary Care Pro vider Unavailable Rosalva Stephen MD Primary Care Provider [phone] [place] Colasacco, Frances DO Primary Care Pro vider Unavailable Rosalva Stephen MD Primary Care Provider [phone] Encounter Details Date Type Department Care Team Description 04/21/2019 [facility] Medical Records [address] [place] [address] Abstract, Provider Social History Tobacco Use Types [...] on filedocumented in this encounter Care Teams Roofing Technician Relationship Specialty Start Date End Date Milton Hummel PCP - General Internal Medicine 02/25/19 06/26/19 Rj Lino MD PCP - General Internal Medicine 06/27/19 07/05/19 Milton Hummel PCP - General Internal Medicine 07/06/19 08/04/19 Frances Sung DO PCP - General Internal Medicine 08/05/19 03/05/21 Rosalva Stephen MD [address] [place] [address] [id number] PCP - General Internal Medicine 03/06/21 03/11/21 Frances Sung DO PCP - General Internal Medicine 03/12/21 03/31/21 Rosalva Stephen MD [address] [place] [address] [id number] PCP - General Internal Medicine 04/01/21 documented as of this encounter
--- OUTSIDE RECORDS SUMMARY | 2025-10-04 07:56 | XMS_ITS | Encounter Summary ---
Author Organization [facility] Prior to 08/12/[address] [place] [address] Care Team Providers Care Pest Control Worker Helper Name Role Phone Doug Cosby MD Primary Care Provider Unavail able [place] Colasacco, Frances DO Primary Care Pro vider Unavailable Milton Hummel Primary Care Provider Unav ailable Rj Lino MD Primary Care Provider Unava ilable Milton Hummel Primary Care Provider Unav ailable [place] Colasacco, Frances DO Primary Care Pro vider Unavailable Rosalva Stephen MD Primary Care Provider [phone] [place] Colasacco, Frances DO Primary Care Pro vider Unavailable Rosalva Stephen MD Primary Care Provider [phone] Encounter Details Date Type Department Care Team Description 07/09/2018 Release of Information Medical Records [address] [place] [address] Abstract, Provider Social History Tobacco Use Types [...] on filedocumented in this encounter Care Teams Pest Control Worker Helper Relationship Specialty Start Date End Date Doug [...] Medicine 08/05/19 03/05/21 Rosalva Stephen MD [address] [place] [address] PCP - General Internal Medicine 03/06/21 03/11/21 Frances Sung DO PCP - General Internal Medicine 03/12/21 03/31/21 Rosalva Stephen MD [address] [place] [address] PCP - General Internal Medicine 04/01/21 documented as of this encounter
--- OUTSIDE RECORDS SUMMARY | 2025-10-04 07:56 | XMS_ITS | Encounter Summary ---
Author Organization [facility] Prior to 08/12/[address] [place] [address] Care Team Providers Care Transonic Engineer Name Role Phone Rosalva Stephen MD Primary Care Provider [phone] Reason for Visit * Reason Onset Date Comments APPOINTMENT 01/08/2022 Encounter Details Date Type Department Care Team Description 01/08/2022 Telephone Adult Medicine [facility] [address] [place] [address] Rosalva Stephen MD [address] [place] [address] APPOINTMENT Social History Tobacco Use Types Packs/Day [...] encounter Miscellaneous Notes * Telephone Encounter - Ana Bella - 01/08/2022 10:05 AM EDT Called and [...] on filedocumented in this encounter Care Teams Transonic Engineer Relationship Specialty Start Date End Date Rosalva Stephen MD [address] [place] [address] PCP - General Internal Medicine 04/01/21 documented as of this encounter
--- OUTSIDE RECORDS SUMMARY | 2025-10-04 07:56 | XMS_ITS | Encounter Summary ---
Author Organization [facility] Prior to 08/12/[address] [place] [address] Care Team Providers Care Data Librarian Name Role Phone Rosalva Stephen MD Primary Care Provider [phone] Encounter Details Date Type Department Care Team Description 07/17/2021 Pt. Non Urgent Medical Question Rheumatology - [address] [address] Loyd Langston PA Social History Tobacco Use [...] have Coronavirus / COVID-19? No / Unsure 07/18/2021 2:26 PM EDT documented as of this encounter Miscellaneous Notes * Telephone Encounter - Elizabeth Hendricks - 07/17/2021 10:39 AM EDTFrom: Deb Malcolm To: Irving Langston Sent: 07/17/2021 10:18 AM EDT Subject: Question regarding X-RAY OF SPINE I had a full spinal X-ray done a few years ago at [facility] in [place]. I have EDS, a connective tissue disorder, X-rays cannot compare to MRIs. I???ve been in agony since yesterday. Isent a message to my PCP today. I just don???t want to have this pain. It???s off the charts pain. Nothing is working. I do no t want pain medication. Days like today, they don???t really help either. I am suffering. documented in this encounter Plan of Treatment Not on file documented as of this encounter Visit Diagnoses Not on filedocumented in this encounter Care Teams Data Librarian Relationship Specialty Start Date End Date Rosalva Stephen MD [address] [place] [address] PCP - General Internal Medicine 04/01/21 documented as of this encounter
--- OUTSIDE RECORDS SUMMARY | 2025-10-04 07:56 | XMS_ITS | Encounter Summary ---
Author Organization [facility] Prior to 08/12/[address] [place] [address] Care Team Providers Care Metal Finish Inspector Name Role Phone Frances Sung DO Primary Care Pro vider Unavailable Rosalva Stephen MD Primary Care Provider [phone] Frances Sung DO Primary Care Pro vider Unavailable Rosalva Stephen MD Primary Care Provider [phone] Encounter Details Date Type Department Care Team Description 09/26/2020 Pt. Non Urgent Medic al Question Adult Medicine [address] [address] Frances Sung DO Social History Tobacco Use [...] encounter Miscellaneous Notes * Telephone Encounter - Janett Blackburn M.A. - 09/26/2020 2:24 PM ESTFrom: Deb Malcolm To: Frances Gaytan DO Sent: 09/26/2020 11:28 AM EST Subject: COVID-19 testing needed? My son's father and I share 50/50 custody of our son. He notified my last night that his live-in gftested positive for COVID-19 on September 22. He just notified me yesterday that she was positive.We exchanged our son the day she was tested but I knew nothing until yesterday evening about t he test and the positive result. He said that he was told that because of our son I needed to be in a 10day quarantine. Is this true? What are the next steps? I am not symptomatic and I need to let [facility] agency know what your protocols are in this situation. Thank you. documented in this encounter Plan of Treatment Not on file documented as of this encounter Visit Diagnoses Not on filedocumented in this encounter Care Teams Metal Finish Inspector Relationship Specialty Start Date End Date Frances Sung DO PCP - General Internal Medicine 08/05/19 03/05/21 Rosalva Stephen MD [address] [place] [address] PCP - General Internal Medicine 03/06/21 03/11/21 Frances Sung DO PCP - General Internal Medicine 03/12/21 03/31/21 Rosalva Stephen MD [address] [place] [address] PCP - General Internal Medicine 04/01/21 documented as of this encounter
--- OUTSIDE RECORDS SUMMARY | 2025-10-04 07:57 | XMS_ITS | Encounter Summary ---
Author Organization [facility] Prior to 08/12/[address] [place] [address] Care Team Providers Care Gum Sprayer Name Role Phone Frances Sung DO Primary Care Pro vider Unavailable Rosalva Stephen MD Primary Care Provider [phone] Frances Sung DO Primary Care Pro vider Unavailable Rosalva Stephen MD Primary Care Provider [phone] Encounter Details Date Type Department Care Team Description 10/08/2020 Studio Camera Operator Report Medical Records [address] [place] [address] Abstract, Provider Social History Tobacco Use Types [...] on filedocumented in this encounter Care Teams Gum Sprayer Relationship Specialty Start Date End Date Frances Sung DO PCP - General Internal Medicine 08/05/19 03/05/21 Rosalva Stephen MD [address] [place] [address] PCP - General Internal Medicine 03/06/21 03/11/21 Frances Sung DO PCP - General Internal Medicine 03/12/21 03/31/21 Rosalva Stephen MD [address] [place] [address] PCP - General Internal Medicine 04/01/21 documented as of this encounter
--- OUTSIDE RECORDS SUMMARY | 2025-10-04 07:57 | XMS_ITS | Encounter Summary ---
Author Organization [facility] Prior to 08/12/[address] [place] [address] Care Team Providers Care Lab Aid Name Role Phone Rosalva Stephen MD Primary Care Provider [phone] Encounter Details Date Type Department Care Team Description 03/13/2022 Pt. Non Urgent Medical Question Adult Medicine [address] [phone] Rosalva Stephen MD [address] [place] [address] [phone] Social History Tobacco Use Types Packs/Day Years [...] encounter Miscellaneous Notes * Telephone Encounter - Natacha Odell C.M.A. - 03/13/2022 1:45 PM EDTFrom: Deb Malcolm To: Jac Stephen Sent: 03/13/2022 1:30 PM EDT Subject: Rheumatology referral I have not received any calls form from rheumatology. Did the referral go through and if so, to whom? Thank you. documented in this encounter Plan of Treatment Not on file documented as of this encounter Visit Diagnoses Not on filedocumented in this encounter Care Teams Lab Aid Relationship Specialty Start Date End Date Rosalva Stephen MD [address] [place] [address] PCP - General Internal Medicine 04/01/21 documented as of this encounter
--- OUTSIDE RECORDS SUMMARY | 2025-10-04 07:57 | XMS_ITS | Encounter Summary ---
Author Organization [facility] Prior to 08/12/[address] [place] [address] Care Team Providers Care Promotional Model Name Role Phone Rosalva Stephen MD Primary Care Provider [phone] Encounter Details Date Type Department Care Team Description 05/11/2022 Home Health Certification Medical Records [address] [place] [address] [facility] [address] [phone] Social History Tobacco Use Types Packs/Day Years [...] on filedocumented in this encounter Care Teams Promotional Model Relationship Specialty Start Date End Date Rosalva Stephen MD [address] [place], [place] [phone] PCP - General Internal Medicine 04/01/21 documented as of this encounter
--- OUTSIDE RECORDS SUMMARY | 2025-10-04 07:57 | XMS_ITS | Encounter Summary ---
Author Organization [facility] Prior to 08/12/[address] [place] [address] Care Team Providers Care Polisher Balance Screwhead Name Role Phone Rosalva Stephen MD Primary Care Provider [phone] Encounter Details Date Type Department Care Team Description 03/12/2022 Home Health Certification Medical Records [address] [place] [address] [facility] [address] [phone] Social History Tobacco Use Types Packs/Day Years [...] on filedocumented in this encounter Care Teams Polisher Balance Screwhead Relationship Specialty Start Date End Date Rosalva Stephen MD [address] [place], [place] [phone] PCP - General Internal Medicine 04/01/21 documented as of this encounter
--- OUTSIDE RECORDS SUMMARY | 2025-10-04 07:57 | XMS_ITS | Encounter Summary ---
Author Organization [facility] Prior to 08/12/[address] [place] [address] Care Team Providers Care Accounting Clerks Supervisor Name Role Phone Rosalva Stephen MD Primary Care Provider [phone] Encounter Details Date Type Department Care Team Description 03/20/2022 Drug Safety Assistant Report Medical Records [address] [place] [address] Sixto Olmedo DO Social History Tobacco Use [...] on filedocumented in this encounter Care Teams Accounting Clerks Supervisor Relationship Specialty Start Date End Date Rosalva Stephen MD [address] [place], [place] [phone] PCP - General Internal Medicine 04/01/21 documented as of this encounter
--- OUTSIDE RECORDS SUMMARY | 2025-10-04 07:57 | XMS_ITS | Encounter Summary ---
Author Organization [facility] Prior to 08/12/[address] [place] [address] Care Team Providers Care Proof Plate Maker Name Role Phone Rosalva Stephen MD Primary Care Provider [phone] Encounter Details Date Type Department Care Team Description 01/15/2022 Pt. Referral Request [facility] Jamey [address] [place] [address] [phone] Md Jamey Social History Tobacco Use Types [...] on filedocumented in this encounter Care Teams Proof Plate Maker Relationship Specialty Start Date End Date Rosalva Stephen MD [address] [place] [address] [phone] PCP - General Internal Medicine 04/01/21 documented as of this encounter
--- OUTSIDE RECORDS SUMMARY | 2025-10-04 07:57 | XMS_ITS | Encounter Summary ---
Author Organization [facility] Prior to 08/12/[address] [place] [address] Care Team Providers Care Braille Typist Name Role Phone Rosalva Stephen MD Primary Care Provider [phone] Reason for Visit * Reason Onset Date Comments Faxed Order 05/22/2022 [facility] 022-07/09/2022 Encounter Details Date Type Department Care Team Description 05/22/2022 Telephone Adult Medicine [address] [place] [address] [address] Rosalva Stephen MD [address] [place] [address] Faxed Order ([facility] 05/11/2022-07/09/2022) Social History Tobacco Use Types Packs/Day Years [...] on filedocumented in this encounter Care Teams Braille Typist Relationship Specialty Start Date End Date Rosalva Stephen MD [address] [place] [address] PCP - General Internal Medicine 04/01/21 documented as of this encounter
--- OUTSIDE RECORDS SUMMARY | 2025-10-04 07:57 | XMS_ITS | Encounter Summary ---
Author Organization [facility] Prior to 08/12/[address] [place] [address] Care Team Providers Care Office Manager Receptionist Name Role Phone Frances Sung DO Primary Care Pro vider Unavailable Rosalva Stephen MD Primary Care Provider [phone] Frances Sung DO Primary Care Pro vider Unavailable Rosalva Stephen MD Primary Care Provider [phone] Encounter Details Date Type Department Care Team Description 12/31/2019 Refill Rheumatology - [address] [address] Loyd Langston PA Social History Tobacco Use [...] encounter Miscellaneous Notes * Telephone Encounter - Destini Nagy M.A. - 01/04/2020 9:35 AM EDT Last ov 09/26/19 Next ov 01/11/20 Lab Results Component Value Date ALB 3.5 11/16/2019 SGOT 16 11/16/2019 SGPT 12 11/16/2019 TBILI 0.3 11/16/2019 DBILI < 0.1 11/16/2019 IBILI 0.2 11/16/2019 ALKPHOS 61 11/16/2019 TP 7.6 11/16/2019 * Telephone Encounter - Adelina Evans L.P.N. - 01/03/2020 1:42 PM EDT Phillip no longer here pcp DR Magdaleno documented in this encounter Plan of Treatment Not on file documented as of this encounter Visit Diagnoses Not on filedocumented in this encounter Care Teams Office Manager Receptionist Relationship Specialty Start Date End Date Frances Sung DO PCP - General Internal Medicine 08/05/19 03/05/21 Rosalva Stephen MD [address] [place] [address] [phone] PCP - General Internal Medicine 03/06/21 03/11/21 Frances Sung DO PCP - General Internal Medicine 03/12/21 03/31/21 Rosalva Stephen MD [address] [place] [address] [phone] PCP - General Internal Medicine 04/01/21 documented as of this encounter
--- OUTSIDE RECORDS SUMMARY | 2025-10-04 07:57 | XMS_ITS | Encounter Summary ---
Author Organization [facility] Prior to 08/12/[address] [place] [address] Care Team Providers Care Loss Prevention Research Engineer Name Role Phone Frances Sung DO Primary Care Pro vider Unavailable Rosalva Stephen MD Primary Care Provider Reason for Visit * Reason Onset Date Comments Medication 03/20/2021 Encounter Details Date Type Department Care Team Description 03/20/2021 Telephone Physiatry - [address] [address] Na Reardon MD [address] [place] [address] [place] [id number] Medication Social History Tobacco Use Types Packs/Day Years [...] Telephone Encounter - Elizabeth Crowe M.A. - 03/20/2021 1:27 PM EDT Gregorio on Dr.Bernal mejía. * Telephone Encounter - Na Reardon MD - 03/20/2021 1:05 PM EDT She cannot fill that prescription on top of our contract. And she should have informed us before trying to fill it because she is contracted with us. Pls get masspat thanks * Telephone Encounter - Elizabeth Crowe M.A. - 03/20/2021 9:49 AM EDT Please advise. She has an appointment this Thursday03/22/2021 with you. * Telephone Encounter - Prashant Smith - 03/20/2021 9:18 AM EDT Patient had hand surgery on 03/19/21 at [facility]. She was prescribed Oxcodone 1-2 pillsevery 6 hours. Pharmacy will not fill the prescription from [facility] because she just picked up a prescription on 03/07/21. documented in this encounter Plan of Treatment Not on file documented as of this encounter Visit Diagnoses Not on filedocumented in this encounter Care Teams Loss Prevention Research Engineer Relationship Specialty Start Date End Date Frances Sung DO PCP - General Internal Medicine 03/12/21 03/31/21 Rosalva Stephen MD [address] [place] [address] PCP - General Internal Medicine 04/01/21 documented as of this encounter
--- OUTSIDE RECORDS SUMMARY | 2025-10-04 07:57 | XMS_ITS | Encounter Summary ---
Author Organization [facility] Prior to 08/12/[address] [place] [address] Care Team Providers Care Advocacy Director Name Role Phone Rosalva Stephen MD Primary Care Provider [phone] Reason for Visit * Reason Onset Date Comments Provider Call Back 04/28/2022 Encounter Details Date Type Department Care Team Description 04/28/2022 Telephone Adult Medicine [address] [phone] Rosalva Stephen MD [address] [place] [address] [phone] Provider Call Back Social History Tobacco Use [...] encounter Miscellaneous Notes * Telephone Encounter - Hector Rodriguez R.N - 05/07/2022 12:21 PM EDT Called pt and advised of message from Rosalva Stephen \ * Telephone Encounter - Rosalva Stephen MD - 05/07/2022 11:46 AM EDT Call returned, Dr Casey is with [facility]; pt scheduled 05/23 and recommended to bring documentation of decreased physical abilities and needs to help document need to increase book repairer hours. * Telephone Encounter - Xiomara Bradshaw R.N. - 05/07/2022 10:43 AM EDT Sending request to increase Amusement Machine Mechanic hours for this pt. to PCP * Telephone Encounter - Critsobal Meza - 05/07/2022 8:[address] Casey returning call can be reached best at * Telephone Encounter - Lizabeth Louise R.N. - 04/28/2022 4:07 PM EDT Called [phone] - Dr. Mandy Casey - unable to leave a message- VM has not been set up. * Telephone Encounter - Lissette Long - 04/28/2022 2:39 PM EDT Caller requesting call back from provider: Is the caller the patient? NO If caller is not the patient, what is the callers name? Dr Mandy Mims Callers relationship to patient? N/A If person calling is not the patient themselves, is there a verbal release in FYI or permanent comments for this person: NO Reason for call back: Dr Mandy Mims is requesting a call back in [facility] to increase of book repairer hours for the patient Caller offered to speak with the nurse for assistance: YES Response: Patient offered to speak with nurse for assistance and patient agreed. Message forwarded to nurse. documented in this encounter Plan of Treatment Not on file documented as of this encounter Visit Diagnoses Not on filedocumented in this encounter Care Teams Advocacy Director Relationship Specialty Start Date End Date Rosalva Stephen MD [address] [place] [address] PCP - General Internal Medicine 04/01/21 documented as of this encounter
--- OUTSIDE RECORDS SUMMARY | 2025-10-04 07:57 | XMS_ITS | Encounter Summary ---
Author Organization [facility] Prior to 08/12/[address] [place] [address] 7[address]85 Care Team Providers Care Client Services Director Name Role Phone Hector Morris MD Primary Care Provider Unavail able [facility], [facility] Primary Care Provider [...] Unavailable Rosalva Stephen MD Primary Care Provider [phone] [place] Colasacco, Frances DO Primary Care Pro vider Unavailable Rosalva Stephen MD Primary Care Provider [phone] Encounter Details Date Type Department Care Team Description 07/22/2015 Hospital Medical Records [address] [place] [address] Igor Rdz MD Social History Tobacco Use [...] filedocumented in this encounter Care Teams Client Services Director Relationship Specialty Start Date End Date Hector Morris MD PCP - General Internal Medicine 10/18/13 01/31/16 [facility], Pcp PCP - General Internal Medicine 02/01/16 [...] Medicine 08/05/19 03/05/21 Rosalva Stephen MD [address] [place] [address] 8[address] PCP - General Internal Medicine 03/06/21 03/11/21 Frances Sung, PCP - General Internal Medicine 03/12/21 03/31/21 Rosalva Stephen MD [address] [place] [address] [phone] PCP - General Internal Medicine 04/01/21 documented as of this encounter
--- OUTSIDE RECORDS SUMMARY | 2025-10-04 07:57 | XMS_ITS | Encounter Summary ---
Author Organization [facility] Prior to 08/12/[address] [place] [address]182 Care Team Providers Care Shotblaster Name Role Phone [place] Colasacco, Frances DO [...] Unavailable Rosalva Stephen MD Primary Care Provider [phone] [place] Colasacco, Frances DO Primary Care Pro vider Unavailable Rosalva Stephen MD Primary Care Provider [phone] Encounter Details Date Type Department Care Team Description 12/28/2017 Pt. Non Urgent Medical Question Physiatry - [place] [address] [place] [address] Na Reardon MD [address] [place] [address] Dr [place], [place] [id number] Social History Tobacco Use Types Packs/Day Years [...] Progress Notes * Alyssa Lyon L.P.N. - 12/28/2017 3:06 PM EDTFrom: Deb Malcolm To: Na Reardon MD Sent: 12/28/2017 2:50 PM EDT Subject: Question regarding MRI OF SPINE I have a question about MRI OF SPINE resulted on 12/25/17 at 2:43 PM. I had gotten an epidural injection once in my spine, is that something you can do or do I need to referred to a spinal specialist? Although my pain is localized, it's very intense. If it could help decrease my pain, it could help with my quality of life and decrease my pain medication need. I'm really tired of being in pain all the time. I'm open to other suggestions as well. Thank you documented in this encounter Plan of Treatment Not on file documented as of this encounter Visit Diagnoses Not on filedocumented in this encounter Care Teams Shotblaster Relationship Specialty Start Date End Date Frances [...] Internal Medicine 08/05/19 03/05/21 Rosalva Stephen MD [address] [place] [address] PCP - General Internal Medicine 03/06/21 03/11/21 Frances Sung DO PCP - General Internal Medicine 03/12/21 03/31/21 Rosalva Stephen MD [address] [place] [address] 48464 PCP - General Internal Medicine 04/01/21 documented as of this encounter
--- OUTSIDE RECORDS SUMMARY | 2025-10-04 07:57 | XMS_ITS | Encounter Summary ---
Author Organization [facility] Prior to 08/12/[address] [place] [address] 113[address] Care Team Providers Care Floor Layer Helper Name Role Phone Rosalva Stephen MD Primary Care Provider [phone] Reason for Visit * Reason Onset Date Comments Faxed Order 02/05/2022 [facility] [id number] Encounter Details Date Type Department Care Team Description 02/05/2022 Telephone Adult Medicine [facility] [address] [place] [address] Rosalva Stephen MD [address] [place] [address] Faxed Order ([facility] [id number]) Social History Tobacco Use Types Packs/Day Years [...] on filedocumented in this encounter Care Teams Floor Layer Helper Relationship Specialty Start Date End Date Rosalva Stephen MD [address] [place] [address] [phone] PCP - General Internal Medicine 04/01/21 documented as of this encounter
--- OUTSIDE RECORDS SUMMARY | 2025-10-04 07:57 | XMS_ITS | Encounter Summary ---
Author Organization [facility] Prior to 08/12/[address] [place] [address] 27878 Care Team Providers Care Inseam Trimming Machine Operator Name Role Phone Frances Sung DO Primary Care Pro vider Unavailable Rosalva Stephen MD Primary Care Provider [phone] Frances Sung DO Primary Care Pro vider Unavailable Rosalva Stephen MD Primary Care Provider [phone] Encounter Details Date Type Department Care Team Description 10/10/2020 Pt. Non Urgent Medical Question Physiatry - [address] [address] Na Reardon MD [address] [place] [address] Dr [place] [id number] Social History Tobacco Use Types Packs/Day Years [...] Progress Notes * Susan Nielson M.A. - 10/10/2020 12:40 PM ESTFrom: Deb Malcolm To: Na Reardon MD Sent: 10/10/2020 11:55 AM EST Subject: Hospital I fainted again and was in the hospital again. My blood pressure was dangerously low 55/22 at firstarrival which improved slightly with fluids but much better after a blood transfusion. I'm waiting for an appt with my PCP documented in this encounter Plan of Treatment Not on file documented as of this encounter Visit Diagnoses Not on filedocumented in this encounter Care Teams Inseam Trimming Machine Operator Relationship Specialty Start Date End Date Frances Sung DO PCP - General Internal Medicine 08/05/19 03/05/21 Rosalva Stephen MD [address] [place] [address] PCP - General Internal Medicine 03/06/21 03/11/21 Frances Sung DO PCP - General Internal Medicine 03/12/21 03/31/21 Rosalva Stephen MD [address] [place] [address] [phone] PCP - General Internal Medicine 04/01/21 documented as of this encounter
--- OUTSIDE RECORDS SUMMARY | 2025-10-04 07:57 | XMS_ITS | Encounter Summary ---
Author Organization [facility] Prior to 08/12/[address] [place] [address] Care Team Providers Care Night Order Selector Name Role Phone [place] Colasacco, Frances DO [...] Unavailable Rosalva Stephen MD Primary Care Provider [phone] [place] Colasacco, Frances DO Primary Care Pro vider Unavailable Rosalva Stephen MD Primary Care Provider [phone] Reason for Visit * Reason Comments E-prescribe Rx Request Encounter Details Date Type Department Care Team Description 01/26/2018 Refill Physiatry - [address] [address] Na Reardon MD [address] [place] [address] [place] [address] E-prescribe Rx Request Social History Tobacco Use [...] on filedocumented in this encounter Care Teams Night Order Selector Relationship Specialty Start Date End Date [...] Medicine 08/05/19 03/05/21 Rosalva Stephen MD [address] [place] [address] PCP - General Internal Medicine 03/06/21 03/11/21 Frances Sung DO PCP - General Internal Medicine 03/12/21 03/31/21 Rosalva Stephen MD [address] [place] [address] PCP - General Internal Medicine 04/01/21 documented as of this encounter
--- OUTSIDE RECORDS SUMMARY | 2025-10-04 07:57 | XMS_ITS | Encounter Summary ---
Author Organization [facility] Prior to 08/12/[address] [place] [address]657 Care Team Providers Care Photographic Reproduction Technician Name Role Phone Hector Morris MD Primary Care Provider Unavail able [facility], [facility] Primary Care Provider [...] Unavailable Rosalva Stephen MD Primary Care Provider [phone] [place] Colasacco, Frances DO Primary Care Pro vider Unavailable Rosalva Stephen MD Primary Care Provider [phone] Encounter Details Date Type Department Care Team Description 07/19/2015 Hospital Medical Records [address] [place] [address] Igor Rdz MD Social History Tobacco Use [...] on filedocumented in this encounter Care Teams Photographic Reproduction Technician Relationship Specialty Start Date End Date Hector Morris MD PCP - General Internal Medicine 10/18/13 01/31/16 [facility], Pcp PCP - General Internal Medicine [...] Medicine 08/05/19 03/05/21 Rosalva Stephen MD [address] [place] [address] 16909 PCP - General Internal Medicine 03/06/21 03/11/21 Frances Sung, PCP - General Internal Medicine 03/12/21 03/31/21 Rosalva Stephen MD [address] [place] [address] [phone] PCP - General Internal Medicine 04/01/21 documented as of this encounter
--- OUTSIDE RECORDS SUMMARY | 2025-10-04 07:57 | XMS_ITS | Encounter Summary ---
Author Organization [facility] Prior to 08/12/[address] [place] [address] 27203 Care Team Providers Care Form Drafter Name Role Phone Frances Sung DO Primary Care Pro vider Unavailable Rosalva Stephen MD Primary Care Provider [phone] Frances Sung DO Primary Care Pro vider Unavailable Rosalva Stephen MD Primary Care Provider [phone] Encounter Details Date Type Department Care Team Description 02/08/2021 [employer] Report Medical Records [address] [place] [address] Abstract, Provider Social History Tobacco Use Types [...] on filedocumented in this encounter Care Teams Form Drafter Relationship Specialty Start Date End Date Frances Sung DO PCP - General Internal Medicine 08/05/19 03/05/21 Rosalva Stephen MD [address] [place] [address] [phone] PCP - General Internal Medicine 03/06/21 03/11/21 Frances Sung DO PCP - General Internal Medicine 03/12/21 03/31/21 Rosalva Stephen MD [address] [place] [address]20 PCP - General Internal Medicine 04/01/21 documented as of this encounter
--- OUTSIDE RECORDS SUMMARY | 2025-10-04 07:57 | XMS_ITS | Encounter Summary ---
Author Organization [facility] Prior to 08/12/[address] [place] [address]40 Care Team Providers Care Auto Rental Supervisor Name Role Phone Rosalva Stephen MD Primary Care Provider [phone] Reason for Visit * Reason Onset Date Comments Faxed Order 06/17/2022 [facility] -07/09/2022 Encounter Details Date Type Department Care Team Description 06/17/2022 Telephone Adult Medicine [address] [address] Rosalva Stephen MD [address] [place] [address] Faxed Order ([facility] 05/11/2022-07/09/2022) Social History Tobacco Use Types Packs/Day [...] on filedocumented in this encounter Care Teams Auto Rental Supervisor Relationship Specialty Start Date End Date Rosalva Stephen MD [address] [place] [address] [place] [address] PCP - General Internal Medicine 04/01/21 documented as of this encounter
--- OUTSIDE RECORDS SUMMARY | 2025-10-04 07:57 | XMS_ITS | Encounter Summary ---
Author Organization [facility] Prior to 08/12/[address] [place] [address] Care Team Providers Care Crew Leader Name Role Phone Frances Sung DO Primary Care Pro vider Unavailable Milton Hummel Primary Care Provider Unav ailable Rj Lino MD Primary Care Provider Unava ilable Milton Hummel Primary Care Provider Unav ailable Frances Sung DO Primary Care Pro vider Unavailable Rosalva Stephen MD Primary Care Provider [phone] Frances Sung DO Primary Care Pro vider Unavailable Rosalva Stephen MD Primary Care Provider [phone] Encounter Details Date Type Department Care Team Description 02/22/2019 [facility] Medical Records [address] [place] [address] Abstract, Provider Social History Tobacco Use Types [...] on filedocumented in this encounter Care Teams Crew Leader Relationship Specialty Start Date End Date Frances Sung DO PCP - General Internal Medicine 07/12/18 02/24/19 Milton Hummel PCP - General Internal Medicine 02/25/19 06/26/19 Rj Lino MD PCP - General Internal Medicine 06/27/19 07/05/19 Mliton Hummel PCP - General Internal Medicine 07/06/19 08/04/19 Frances Sung DO PCP - General Internal Medicine 08/05/19 03/05/21 Rosalva Stephen MD [address] [place] [address]168 PCP - General Internal Medicine 03/06/21 03/11/21 Frances Sung DO PCP - General Internal Medicine 03/12/21 03/31/21 Rosalva Stephen MD [address] [place] [address]21 PCP - General Internal Medicine 04/01/21 documented as of this encounter
--- OUTSIDE RECORDS SUMMARY | 2025-10-04 07:57 | XMS_ITS | Encounter Summary ---
Author Organization [facility] Prior to 08/12/[address] [place] [address] 6[address]64 Care Team Providers Care Wafer Cutter Name Role Phone Rosalva Stephen MD Primary Care Provider [phone] Encounter Details Date Type Department Care Team Description 01/14/2022 Pt. Referral Request [facility] Jamey [address] [place] [address] [phone] Md Jamey Social History Tobacco Use Types [...] on filedocumented in this encounter Care Teams Wafer Cutter Relationship Specialty Start Date End Date Rosalva Stephen MD [address] [place] [address] [phone] PCP - General Internal Medicine 04/01/21 documented as of this encounter
--- OUTSIDE RECORDS SUMMARY | 2025-10-04 07:57 | XMS_ITS | Encounter Summary ---
Author Organization [facility] Prior to 08/12/[address] [place] [address] 70386 Care Team Providers Care Glass Calibrator Name Role Phone Frances Sung DO Primary Care Pro vider Unavailable Rosalva Stephen MD Primary Care Provider [phone] Frances Sung DO Primary Care Pro vider Unavailable Rosalva Stephen MD Primary Care Provider [phone] Encounter Details Date Type Department Care Team Description 10/04/2020 Hospital Medical Records [address] [place] [address] Abstract, Provider Social History Tobacco Use Types [...] filedocumented in this encounter Care Teams Glass Calibrator Relationship Specialty Start Date End Date Frances Sung DO PCP - General Internal Medicine 08/05/19 03/05/21 Rosalva Stephen MD [address] [place] [address] PCP - General Internal Medicine 03/06/21 03/11/21 Frances Sung DO PCP - General Internal Medicine 03/12/21 03/31/21 Rosalva Stephen MD [address] [place] [address]1977 PCP - General Internal Medicine 04/01/21 documented as of this encounter
--- OUTSIDE RECORDS SUMMARY | 2025-10-04 07:57 | XMS_ITS | Encounter Summary ---
Author Organization [facility] Prior to 08/12/[address] [place] [address] Care Team Providers Care Staff Home Therapy Rn Name Role Phone Frances Sung DO Primary Care Pro vider Unavailable Rosalva Stephen MD Primary Care Provider [phone] Frances Sung DO Primary Care Pro vider Unavailable Rosalva Stephen MD Primary Care Provider [phone] Reason for Visit * Reason Onset Date Comments Provider Call Back 12/23/2019 Encounter Details Date Type Department Care Team Description 12/23/2019 Telephone Physiatry - [address] [address] Na Reardon MD [address] [place] [address] Dr [place] [id number] Provider Call Back Social History Tobacco Use [...] Telephone Encounter - Elizabeth Crowe M.A. - 12/23/2019 10:08 AM EDT Spoke with patient. Letter will be mailed out. * Telephone Encounter - Lalita Buckley - 12/23/2019 9:35 AM EDT Patient is returning missed call, patient was unable to verify who exactly left her a voicemail to return call. Please review documented in this encounter Plan of Treatment Not on file documented as of this encounter Visit Diagnoses Not on filedocumented in this encounter Care Teams Staff Home Therapy Rn Relationship Specialty Start Date End Date Frances Sung DO PCP - General Internal Medicine 08/05/19 03/05/21 Rosalva Stephen MD [address] [place] [address] PCP - General Internal Medicine 03/06/21 03/11/21 Frances Sung DO PCP - General Internal Medicine 03/12/21 03/31/21 Rosalva Stephen MD [address] [place] [address] 16420 PCP - General Internal Medicine 04/01/21 documented as of this encounter
--- OUTSIDE RECORDS SUMMARY | 2025-10-04 07:57 | XMS_ITS | Encounter Summary ---
Author Organization [facility] Prior to 08/12/[address] [place] [address] 8[address] Care Team Providers Care Senior Manufacturing Technician Name Role Phone Rosalva Stephen MD Primary Care Provider [phone] Reason for Visit * Reason Onset Date Comments PT-1 01/30/2022 Encounter Details Date Type Department Care Team Description 01/30/2022 Telephone Adult Medicine [facility] [address] [place] [address] [phone] Rosalva Stephen MD [address] [place] [address] [phone] PT-1 Social History Tobacco Use Types Packs/Day [...] - 01/30/2022 3:32 PM EDT PT1 Pending [id number]/Dr Sixto Arvizu/Sleep Medicine 2 visits x 1 year Exp 01/30/2023 * Telephone Encounter - Jeannine Glasgow - 01/30/2022 2:07 PM EDT [facility] Medicaid Group new provider or submitter number is [id number] Verify and document patients [place] Health insurance ID # (NOT [facility] ID): [id number] Payor: [employer] FFS / Plan: [employer]IANCE / Product Type: MEDICAID RISK Patient mailing address: [address] [place] [address] Dr Bella ROBLEDO [address] Telephone Information: Pt. demographics verified? YES If not accurate, update registration. Is this a NEW request or a RENEWAL? NEW [facility] of treating facility[facility] Name (first & last) of treating provider? required : Dr Sixto Arvizu What is the medical reason why the patient is seeing the above provider? [facility] Address/Zip code for treating provider: [address] [address] Phone # for treating provider: [phone] Is the provider in the [facility] [id number] network (do they accept [place] Health insurance)? [...] filedocumented in this encounter Care Teams Senior Manufacturing Technician Relationship Specialty Start Date End Date Rosalva Stephen MD [address] [place] [address] PCP - General Internal Medicine 04/01/21 documented as of this encounter
--- OUTSIDE RECORDS SUMMARY | 2025-10-04 07:57 | XMS_ITS | Encounter Summary ---
Author Organization [facility] Prior to 08/12/[address] [place] [address] 49926 Care Team Providers Care Cardiology Specialist Name Role Phone Frances Sung DO Primary Care Pro vider Unavailable Rosalva Stephen MD Primary Care Provider [phone] Frances Sung DO Primary Care Pro vider Unavailable Rosalva Stephen MD Primary Care Provider [phone] Encounter Details Date Type Department Care Team Description 12/21/2019 Pt. Non Urgent Medical Question Physiatry - [address] [address] Na Reardon MD [address] [place] [address] Dr [place] [id number] Social History Tobacco Use Types Packs/Day Years [...] limits. I need this for court (custody). Elijahyou. documented in this encounter Plan of Treatment Not on file documented as of this encounter Visit Diagnoses Not on filedocumented in this encounter Care Teams Cardiology Specialist Relationship Specialty Start Date End Date Frances Sung DO PCP - General Internal Medicine 08/05/19 03/05/21 Rosalva Stephen MD [address] [place] [address] PCP - General Internal Medicine 03/06/21 03/11/21 Frances Sung DO PCP - General Internal Medicine 03/12/21 03/31/21 Rosalva Stephen MD [address] [place] [address] PCP - General Internal Medicine 04/01/21 documented as of this encounter
--- OUTSIDE RECORDS SUMMARY | 2025-10-04 07:57 | XMS_ITS | Encounter Summary ---
Author Organization [facility] Prior to 08/12/[address] [place] [address] 90[address] Care Team Providers Care Pipe Machine Operator Name Role Phone Frances Sung DO Primary Care Pro vider Unavailable Rosalva Stephen MD Primary Care Provider [phone] Frances Sung DO Primary Care Pro vider Unavailable Rosalva Stephen MD Primary Care Provider [phone] Encounter Details Date Type Department Care Team Description 10/18/2020 Motorcycle Subassembler Report Medical Records [address] [place] [address] Abstract, Provider Social History Tobacco Use Types [...] on filedocumented in this encounter Care Teams Pipe Machine Operator Relationship Specialty Start Date End Date Frances Sung DO PCP - General Internal Medicine 08/05/19 03/05/21 Rosalva Stephen MD [address] [place] [address] [place] [address] PCP - General Internal Medicine 03/06/21 03/11/21 Frances Sung DO PCP - General Internal Medicine 03/12/21 03/31/21 Rosalva Stephen MD [address] [place] [address] PCP - General Internal Medicine 04/01/21 documented as of this encounter
--- OUTSIDE RECORDS SUMMARY | 2025-10-04 07:57 | XMS_ITS | Encounter Summary ---
Author Organization [facility] Prior to 08/12/[address] [place] [address] Care Team Providers Care Supervisor Lending Activities Name Role Phone Frances Sung DO Primary Care Pro vider Unavailable Rosalva Stephen MD Primary Care Provider [phone] Frances Sung DO Primary Care Pro vider Unavailable Rosalva Stephen MD Primary Care Provider [phone] Reason for Visit * Reason Onset Date Comments Faxed Order 11/15/2020 Encounter Details Date Type Department Care Team Description 11/15/2020 Telephone Adult [address] [address] Frances Sung DO Faxed Order Social History [...] - 11/15/2020 8:30 AM EST Orders from [facility] to be signed and faxed back to [phone] . documented in this encounter Plan of Treatment Not on file documented as of this encounter Visit Diagnoses Not on filedocumented in this encounter Care Teams Supervisor Lending Activities Relationship Specialty Start Date End Date Frances Sung DO PCP - General Internal Medicine 08/05/19 03/05/21 Rosalva Stephen MD [address] [place] [address] PCP - General Internal Medicine 03/06/21 03/11/21 Frances Sung DO PCP - General Internal Medicine 03/12/21 03/31/21 Rosalva Stephen MD [address] [place] [address] PCP - General Internal Medicine 04/01/21 documented as of this encounter
--- OUTSIDE RECORDS SUMMARY | 2025-10-04 07:57 | XMS_ITS | Encounter Summary ---
Author Organization [facility] Prior to 08/12/[address] [place] [address] Care Team Providers Care Director Of Career Services Name Role Phone Hector Morris MD Primary Care Provider Unavail able [facility], Pcp Primary Care Provider Unavailabl e Krakowiak Colasacco, [...] Unavailable Rosalva Stephen MD Primary Care Provider [phone] Krak[place]ak Colasacco, Frances DO Primary Care Pro vider Unavailable Rosalva Stephen MD Primary Care Provider [phone] Encounter Details Date Type Department Care Team Description 01/23/2016 Picker Feeder Report Medical Records [address] [place] [address] Jeffery Kitchen MD [address] [place] [address] [place] [address] Social History Tobacco Use Types Packs/Day Years [...] in this encounter Care Teams Director Of Career Services Relationship Specialty Start Date End Date Hector Morris MD PCP - General Internal Medicine 10/18/13 01/31/16 [facility], Pcp PCP - General Internal Medicine 02/01/16 [...] Medicine 08/05/19 03/05/21 Rosalva Stephen MD [address] [place] [address] PCP - General Internal Medicine 03/06/21 03/11/21 Frances Sung, PCP - General Internal Medicine 03/12/21 03/31/21 Rosalva Stephen MD [address] [place] [address] PCP - General Internal Medicine 04/01/21 documented as of this encounter
--- OUTSIDE RECORDS SUMMARY | 2025-10-04 07:57 | XMS_ITS | Encounter Summary ---
Author Organization [facility] Prior to 08/12/[address] [place] [address] Care Team Providers Care General Distillery Worker Name Role Phone Frances Sung DO Primary Care Pro vider Unavailable Rosalva Stephen MD Primary Care Provider [phone] Frances Sung DO Primary Care Pro vider Unavailable Rosalva Stephen MD Primary Care Provider [phone] Encounter Details Date Type Department Care Team Description 04/25/2020 Refill Physiatry - [address] [address] Na Reardon MD [address] [place] [address] Dr [place]I [place] [id number] Social History Tobacco Use Types Packs/Day Years [...] Telephone Encounter - Na Reardon MD - 04/26/2020 8:58 AM EDT [facility] [...] knee documented in this encounter Care Teams General Distillery Worker Relationship Specialty Start Date End Date Frances Sung DO PCP - General Internal Medicine 08/05/19 03/05/21 Rosalva Stephen MD [address] [place] [address] PCP - General Internal Medicine 03/06/21 03/11/21 Frances Sung DO PCP - General Internal Medicine 03/12/21 03/31/21 Rosalva Stephen MD [address] [place] [address] PCP - General Internal Medicine 04/01/21 documented as of this encounter
--- OUTSIDE RECORDS SUMMARY | 2025-10-04 07:57 | XMS_ITS | Encounter Summary ---
Author Organization [facility] Prior to 08/12/[address] [place] [address] Care Team Providers Care Forms Builder Name Role Phone Frances Sung DO Primary Care Pro vider Unavailable Rosalva Stephen MD Primary Care Provider [phone] Frances Sung DO Primary Care Pro vider Unavailable Rosalva Stephen MD Primary Care Provider [phone] Encounter Details Date Type Department Care Team Description 10/23/2020 Pt. Non Urgent Medic al Question Adult [address] [address] Frances Sung DO Social History Tobacco Use [...] The hip doctor Dr Fernie North at [facility] says I need to get a referral to see Dr Edison Pisano. He a product trainer who specializes in EDS. They also want need to see a hip surgeon who specializes in EDS. I was able to find a Dr Santhosh Alvarenga at [facility] a hip surgeon who is knowledgeable aboutEDS. documented in this encounter Plan of Treatment Not on file documented as of this encounter Visit Diagnoses Not on filedocumented in this encounter Care Teams Forms Builder Relationship Specialty Start Date End Date Frances Sung DO PCP - General Internal Medicine 08/05/19 03/05/21 Rosalva Stephen MD [address] [place] [address] [phone] PCP - General Internal Medicine 03/06/21 03/11/21 Frances Sung DO PCP - General Internal Medicine 03/12/21 03/31/21 Rosalva Stephen MD [address] [place] [address] [phone] PCP - General Internal Medicine 04/01/21 documented as of this encounter
--- OUTSIDE RECORDS SUMMARY | 2025-10-04 07:57 | XMS_ITS | Encounter Summary ---
Author Organization [facility] Prior to 08/12/[address] [place] [address] Care Team Providers Care Hod Carrier Name Role Phone Frances Sung DO Primary Care Pro vider Unavailable Rosalva Stephen MD Primary Care Provider [phone] Frances Sung DO Primary Care Pro vider Unavailable Rosalva Stephen MD Primary Care Provider [phone] Encounter Details Date Type Department Care Team Description 01/04/2020 Refill Rheumatology - [address] [address] Loyd Langston PA Social History Tobacco Use [...] encounter Miscellaneous Notes * Telephone Encounter - Kalyn Jones - 01/04/2020 10:56 AM EDT This was rheumatology * Telephone Encounter - Destini Nagy M.A. - 01/04/2020 10:27 AM EDT Last ov 09/26/19 Next ov 01/11/20 Lab Results Component Value Date ALB 3.5 11/16/2019 SGOT 16 11/16/2019 SGPT 12 11/16/2019 TBILI 0.3 11/16/2019 DBILI < 0.1 11/16/2019 IBILI 0.2 11/16/2019 ALKPHOS 61 11/16/2019 TP 7.6 11/16/2019 documented in this encounter Plan of Treatment Not on file documented as of this encounter Visit Diagnoses Not on filedocumented in this encounter Care Teams Hod Carrier Relationship Specialty Start Date End Date Frances Sung DO PCP - General Internal Medicine 08/05/19 03/05/21 Rosalva Stephen MD [address] [place] [address] PCP - General Internal Medicine 03/06/21 03/11/21 Frances Sung DO PCP - General Internal Medicine 03/12/21 03/31/21 Rosalva Stephen MD [address] [place] [address] PCP - General Internal Medicine 04/01/21 documented as of this encounter
--- OUTSIDE RECORDS SUMMARY | 2025-10-04 07:57 | XMS_ITS | Encounter Summary ---
Author Organization [facility] Prior to 08/12/[address] [place] [address] Care Team Providers Care Open Hearth Helper Name Role Phone Krakowiak Colasacco, Frances DO [...] Unavailable Rosalva Stephen MD Primary Care Provider [phone] Krak[place]ak Colasacco, Frances DO Primary Care Pro vider Unavailable Rosalva Stephen MD Primary Care Provider [phone] Encounter Details Date Type Department Care Team Description 01/28/2018 Pt. Non Urgent Medic al Question Adult Medicine [address] [place] [address] [address] Krakowiak ColtwylaoFrances DO Social History Tobacco Use Types Packs/Day [...] on filedocumented in this encounter Care Teams Open Hearth Helper Relationship Specialty Start Date End Date [...] Medicine 08/05/19 03/05/21 Rosalva Stephen MD [address] [place] [address] PCP - General Internal Medicine 03/06/21 03/11/21 Frances Sung DO PCP - General Internal Medicine 03/12/21 03/31/21 Rosalva Stephen MD [address] [place] [address] PCP - General Internal Medicine 04/01/21 documented as of this encounter
--- OUTSIDE RECORDS SUMMARY | 2025-10-04 07:57 | XMS_ITS | Encounter Summary ---
Author Organization [facility] Prior to 08/12/[address] [place] [address] Care Team Providers Care Corporate Responsibility Officer Name Role Phone Rosalva Stephen MD Primary Care Provider [phone] Encounter Details Date Type Department Care Team Description 04/04/2022 Pt. Non Urgent Medical Question Adult Medicine [address] [phone] Rosalva Stephen MD [address] [place] [address] [phone] Social History Tobacco Use Types Packs/Day Years [...] filedocumented in this encounter Care Teams Corporate Responsibility Officer Relationship Specialty Start Date End Date Rosalva Stephen MD [address] [place] [address] PCP - General Internal Medicine 04/01/21 documented as of this encounter
--- OUTSIDE RECORDS SUMMARY | 2025-10-04 07:57 | XMS_ITS | Encounter Summary ---
Author Organization [facility] Prior to 08/12/[address] [place] [address] Care Team Providers Care Ruling Technician Name Role Phone Frances Sung DO Primary Care Pro vider Unavailable Rosalva Stephen MD Primary Care Provider [phone] Frances Sung DO Primary Care Pro vider Unavailable Rosalva Stephen MD Primary Care Provider [phone] Reason for Visit * Reason Onset Date Comments Faxed Order 10/10/2020 Encounter Details Date Type Department Care Team Description 10/10/2020 Telephone Adult [address] [address] Frances Sung DO Faxed Order Social History [...] encounter Miscellaneous Notes * Telephone Encounter - Christianoalebrto Brayan - 10/25/2020 10:04 AM EST Additional orders from [facility] Care to be signed and faxed back to [phone] * Telephone Encounter - Imelda Almaguer - 10/10/2020 9:40 AM EST [facility] IS FAXING ORDERS TO BE SIGN AND FAX BACK TO [phone]. documented in this encounter Plan of Treatment Not on file documented as of this encounter Visit Diagnoses Not on filedocumented in this encounter Care Teams Ruling Technician Relationship Specialty Start Date End Date Frances Sung DO PCP - General Internal Medicine 08/05/19 03/05/21 Rosalva Stephen MD [address] [place] [address] [phone] PCP - General Internal Medicine 03/06/21 03/11/21 Frances Sung DO PCP - General Internal Medicine 03/12/21 03/31/21 Rosalva Stephen MD [address] [place] [address] [phone] PCP - General Internal Medicine 04/01/21 documented as of this encounter
--- OUTSIDE RECORDS SUMMARY | 2025-10-04 07:57 | XMS_ITS | Encounter Summary ---
Author Organization [facility] Prior to 08/12/[address] [place] [address] Care Team Providers Care Elevator Dispatcher Name Role Phone Rosalva Stephen MD Primary Care Provider [phone] Reason for Visit * Reason Onset Date Comments PT-1 04/23/2022 Encounter Details Date Type Department Care Team Description 04/23/2022 Pt. Non Urgent Medical Question Adult Medicine [address] [phone] Rosalva Stephen MD [address] [place] [address] Social History Tobacco Use Types Packs/Day Years [...] PT-1 Veronika, I will need PT-1 for [place] [phone]) [phone] please and thank you. documented in this encounter Plan of Treatment Not on file documented as of this encounter Visit Diagnoses Not on filedocumented in this encounter Care Teams Elevator Dispatcher Relationship Specialty Start Date End Date Rosalva Stephen MD [address] [place] [address] PCP - General Internal Medicine 04/01/21 documented as of this encounter
--- OUTSIDE RECORDS SUMMARY | 2025-10-04 07:57 | XMS_ITS | Encounter Summary ---
Author Organization [facility] Prior to 08/12/[address] [place] [address] Care Team Providers Care Auto Winder Name Role Phone Frances Sung DO Primary Care Pro vider Unavailable Rosalva Stephen MD Primary Care Provider [phone] Frances Sung DO Primary Care Pro vider Unavailable Rosalva Stephen MD Primary Care Provider [phone] Encounter Details Date Type Department Care Team Description 02/02/2020 Refill Physiatry - [address] [address] Na Reardon MD [address] [place] [address] Dr [facility]I [place] [id number] Social History Tobacco Use Types Packs/Day Years [...] knee documented in this encounter Care Teams Auto Winder Relationship Specialty Start Date End Date Frances Sung DO PCP - General Internal Medicine 08/05/19 03/05/21 Rosalva Stephen MD [address] [place] [address] PCP - General Internal Medicine 03/06/21 03/11/21 Frances Sung DO PCP - General Internal Medicine 03/12/21 03/31/21 Rosalva Stephen MD [address] [place] [address] PCP - General Internal Medicine 04/01/21 documented as of this encounter
--- OUTSIDE RECORDS SUMMARY | 2025-10-04 07:57 | XMS_ITS | Encounter Summary ---
Author Organization [facility] Prior to 08/12/[address] [place] [address] Care Team Providers Care Retail Sales Director Name Role Phone Frances Sung DO Primary Care Pro vider Unavailable Rosalva Stephen MD Primary Care Provider [phone] Encounter Details Date Type Department Care Team Description 03/13/2021 [facility] Medical Records [address] [place] [address] Abstract, Provider Social History Tobacco Use Types [...] on filedocumented in this encounter Care Teams Retail Sales Director Relationship Specialty Start Date End Date Frances Sung DO PCP - General Internal Medicine 03/12/21 03/31/21 Rosalva Stephen MD [address] [place] [address] [id number] PCP - General Internal Medicine 04/01/21 documented as of this encounter
--- OUTSIDE RECORDS SUMMARY | 2025-10-04 07:57 | XMS_ITS | Encounter Summary ---
Author Organization [facility] Prior to 08/12/[address] [place] [address] Care Team Providers Care Hydrogeologist Name Role Phone Frances Sung DO Primary Care Pro vider Unavailable Rosalva Stephen MD Primary Care Provider [phone] Frances Sung DO Primary Care Pro vider Unavailable Rosalva Stephen MD Primary Care Provider [phone] Encounter Details Date Type Department Care Team Description 10/18/2020 [facility] Medical Records [address] [place] [address] Abstract, Provider Social History Tobacco Use Types [...] on filedocumented in this encounter Care Teams Hydrogeologist Relationship Specialty Start Date End Date Frances Sung DO PCP - General Internal Medicine 08/05/19 03/05/21 Rosalva Stephen MD [address] [place] [address] PCP - General Internal Medicine 03/06/21 03/11/21 Frances Sung DO PCP - General Internal Medicine 03/12/21 03/31/21 Rosalva Stephen MD [address] [place] [address] PCP - General Internal Medicine 04/01/21 documented as of this encounter
--- OUTSIDE RECORDS SUMMARY | 2025-10-04 07:57 | XMS_ITS | Encounter Summary ---
Author Organization [facility] Prior to 08/12/[address] [place] [address] Care Team Providers Care Hospice Rn Name Role Phone Krakowiak Colasacco, Frances DO [...] Unavailable Rosalva Stephen MD Primary Care Provider [phone] [place]ak Colasacco, Frances DO Primary Care Pro vider Unavailable Rosalva Stephen MD Primary Care Provider [phone] Encounter Details Date Type Department Care Team Description 01/26/2018 [facility] Medical Records [address] [place] [address] Abstract, Provider Social History Tobacco Use Types [...] on filedocumented in this encounter Care Teams Hospice Rn Relationship Specialty Start Date End Date [...] Medicine 08/05/19 03/05/21 Rosalva Stephen MD [address] [place] [address] [phone] PCP - General Internal Medicine 03/06/21 03/11/21 Frances Sung, PCP - General Internal Medicine 03/12/21 03/31/21 Rosalva Stephen MD [address] [place] [address] [phone] PCP - General Internal Medicine 04/01/21 documented as of this encounter
--- OUTSIDE RECORDS SUMMARY | 2025-10-04 07:57 | XMS_ITS | Encounter Summary ---
Author Organization [facility] Prior to 08/12/[address] [place] [address] Care Team Providers Care Quality Rn Name Role Phone Hector Morris MD Primary Care Provider Unavail able [facility], [facility] Primary Care [...] Unavailable Rosalva Stephen MD Primary Care Provider [phone] Krakowiak Colasacco, Frances DO Primary Care Pro vider Unavailable Rosalva Stephen MD Primary Care Provider [phone] Encounter Details Date Type Department Care Team Description 07/19/2015 [facility] Medical Records [address] [place] [address] Igor Rdz MD Social History Tobacco Use [...] on filedocumented in this encounter Care Teams Quality Rn Relationship Specialty Start Date End Date Hector Morris MD PCP - General Internal Medicine 10/18/13 01/31/16 [facility], Pcp PCP - General Internal [...] Medicine 08/05/19 03/05/21 Rosalva Stephen MD [address] [place] [address] PCP - General Internal Medicine 03/06/21 03/11/21 Frances Sung, PCP - General Internal Medicine 03/12/21 03/31/21 Rosalva Stephen MD [address] [place] [address] [phone] PCP - General Internal Medicine 04/01/21 documented as of this encounter
--- OUTSIDE RECORDS SUMMARY | 2025-10-04 07:57 | XMS_ITS | Encounter Summary ---
Author Organization [facility] Prior to 08/12/[address] [place] [address] Care Team Providers Care Detective Narcotics And Vice Name Role Phone Krakowiak Colasacco, Frances DO [...] Unavailable Rosalva Stephen MD Primary Care Provider [phone] Krak[place]iak Colasacco, Frances DO Primary Care Pro vider Unavailable Rosalva Stephen MD Primary Care Provider [phone] Encounter Details Date Type Department Care Team Description 03/17/2016 Room Manager Report Medical Records [address] [place] [address] Richard Gonsales Social History Tobacco Use Types Packs/Day Years [...] on filedocumented in this encounter Care Teams Detective Narcotics And Vice Relationship Specialty Start Date End Date Frances Sung DO PCP - General Internal Medicine 02/12/16 04/28/18 Doug Cosby MD PCP - General Internal Medicine 04/29/18 07/11/18 Frances Sung DO PCP - General Internal Medicine 07/12/18 02/24/19 Milton Hummel PCP - General Internal Medicine 02/25/19 06/26/19 Rj Lino MD PCP - General Internal Medicine 06/27/19 07/05/19 Milton Hummle PCP - General Internal Medicine 07/06/19 08/04/19 Frances Sung, PCP - General Internal Medicine 08/05/19 03/05/21 Rosalva Stephen MD [address] [place] [address] [phone] PCP - General Internal Medicine 03/06/21 03/11/21 Frances Sung DO PCP - General Internal Medicine 03/12/21 03/31/21 Rosalva Stephen MD [address] [place] [address] [phone] PCP - General Internal Medicine 04/01/21 documented as of this encounter
--- OUTSIDE RECORDS SUMMARY | 2025-10-04 07:57 | XMS_ITS | Encounter Summary ---
Author Organization [facility] Prior to 08/12/[address] [place] [address] Care Team Providers Care Manager Programs Name Role Phone Frances Sung DO Primary Care Pro vider Unavailable Rosalva Stephen MD Primary Care Provider [phone] Frances Sung DO Primary Care Pro vider Unavailable Rosalva Stephen MD Primary Care Provider [phone] Reason for Visit * Reason Onset Date Comments Faxed Refill 04/27/2020 norethindrone-et hinyl estradiol (NECON) 0.5-35 MG-MCG per tablet Encounter Details Date Type Department Care Team Description 04/27/2020 Refill OBGYN - [place] [address] [place] [address] Rizwana Carter MD [address] [place] [address] Faxed Refill (norethindrone-ethinyl estradiol (NECON) 0.5-35 MG-MCG per tablet) Social History Tobacco Use Types Packs/Day Years [...] encounter Miscellaneous Notes * Telephone Encounter - Jaquelin Easton - 04/27/2020 10:48 AM EDT WHEN WAS THE PATIENTS LAST ANNUAL CANVAS REPAIRER EXAM? 03/22/20 Does patient have an upcoming appointment? Yes 08/09/20 (THE MEDICATION REQUESTED IS ON THE MED LIST ABOVE) Did you check the Pharmacy information above?: YES Indicate how soon the patient needs the script: OK FOR NEXT DAY Patient would like script to be: E-PRESCRIBED/FAXED TO PHARMACY Is the doctor here today?: NO Can the message wait until the doctor returns?: NO Has the patient been told that the prescription will not be filled until the end of the day? NO Payor: [employer] FFS / Plan: [employer] / Product Type: MEDICAID RISK documented in this encounter Plan of Treatment Not on file documented as of this encounter Visit Diagnoses Not on filedocumented in this encounter Care Teams Manager Programs Relationship Specialty Start Date End Date Frances Sung DO PCP - General Internal Medicine 08/05/19 03/05/21 Rosalva Stephen MD [address] [place] [address] PCP - General Internal Medicine 03/06/21 03/11/21 Frances Sung DO PCP - General Internal Medicine 03/12/21 03/31/21 Rosalva Stephen MD [address] [place] [address] PCP - General Internal Medicine 04/01/21 documented as of this encounter
--- OUTSIDE RECORDS SUMMARY | 2025-10-04 07:57 | XMS_ITS | Encounter Summary ---
Author Organization [facility] Prior to 08/12/[address] [place] [address] Care Team Providers Care Reed Polisher Name Role Phone Rosalva Stephen MD Primary Care Provider [phone] Reason for Visit * Reason Onset Date Comments PT-1 04/23/2022 Encounter Details Date Type Department Care Team Description 04/23/2022 Pt. Non Urgent Medical Question Adult Medicine [address] [address] Rosalva Stephen MD [address] [place] [address] Social History Tobacco Use Types Packs/Day Years [...] Telephone Encounter - Blanca Chung M.A. - 04/24/2022 8:03 AM EDTFrom: Deb Malcolm To: Jac Stephen Sent: 04/23/2022 5:12 PM EDT Subject: Rheumatology Rheumatology usually prescribes my tizanidine and gabapentin. I have an appt to see Dr. Mcclure on Sep 16 at 9am. I'll need a PT-1 to see him as well documented in this encounter Plan of Treatment Not on file documented as of this encounter Visit Diagnoses Not on filedocumented in this encounter Care Teams Reed Polisher Relationship Specialty Start Date End Date Rosalva Stephen MD [address] [place] [address] PCP - General Internal Medicine 04/01/21 documented as of this encounter
--- OUTSIDE RECORDS SUMMARY | 2025-10-04 07:57 | XMS_ITS | Encounter Summary ---
Author Organization [facility] Prior to 08/12/[address] [place] [address] 09377 Care Team Providers Care Protector Plate Attacher Name Role Phone Krakowiak Colasacco, Frances DO [...] Unavailable Rosalva Stephen MD Primary Care Provider [phone] Krakowiak Colasacco, Frances DO Primary Care Pro vider Unavailable Rosalva Stephen MD Primary Care Provider [phone] Encounter Details Date Type Department Care Team Description 12/28/2017 [facility] Medical Records [address] [place] [address] Abstract, Provider Social History Tobacco Use Types [...] on filedocumented in this encounter Care Teams Protector Plate Attacher Relationship Specialty Start Date End Date Frances [...] Medicine 08/05/19 03/05/21 Rosalva Stephen MD [address] [place] [address] [id number] PCP - General Internal Medicine 03/06/21 03/11/21 Frances Sung, PCP - General Internal Medicine 03/12/21 03/31/21 Rosalva Stephen MD [address] [place] [address] [id number] PCP - General Internal Medicine 04/01/21 documented as of this encounter
--- OUTSIDE RECORDS SUMMARY | 2025-10-04 07:57 | XMS_ITS | Encounter Summary ---
Author Organization [facility] Prior to 08/12/[address] [place] [address] Care Team Providers Care Grocery Shopper Name Role Phone Rosalva Stephen MD Primary Care Provider [phone] Encounter Details Date Type Department Care Team Description 01/15/2022 Pt. Non Urgent Medical Question Adult Medicine [address] [phone] Rosalva Stephen MD [address] [place] [address] [phone] Social History Tobacco Use Types Packs/Day Years [...] link if you don't already have it: [email or web address]://[email or web address].gov/how-to/request- [email or web address]-member documented in this encounter Plan of Treatment Not on file documented as of this encounter Visit Diagnoses Not on filedocumented in this encounter Care Teams Grocery Shopper Relationship Specialty Start Date End Date Rosalva Stephen MD [address] [place] [address] [id number] PCP - General Internal Medicine 04/01/21 documented as of this encounter
--- OUTSIDE RECORDS SUMMARY | 2025-10-04 07:57 | XMS_ITS | Encounter Summary ---
Author Organization [facility] Prior to 08/12/[address] [place] [address] 34449 Care Team Providers Care Virginia Line Attendant Name Role Phone Krakowiak Colasacco, Frances DO Primary Care Pro vider Unavailable Doug Cosby MD Primary Care Provider Unavail able Krakowiak Colasacco, Frances DO Primary Care Pro vider Unavailable Milton Hummel Primary Care Provider Unav ailable Rj iLno MD Primary Care Provider Unava ilable Milton Hummel Primary Care Provider Unav ailable Krakowiak Colasacco, Frances DO Primary Care Pro vider Unavailable Rosalva Stephen MD Primary Care Provider [phone] Krakowiak Colasacco, Frances DO Primary Care Pro vider Unavailable Rosalva Stephen MD Primary Care Provider [phone] Encounter Details Date Type Department Care Team Description 01/24/2018 Pt. Non Urgent Medic al Question Adult Medicine [address] [address] Krakowiak ColtwylaoAnupla DO Social History Tobacco Use Types Packs/Day [...] as of this encounter Progress Notes * Dilip Ga NP - 01/28/2018 4:37 PM EDT Addressed with patient during the appointment today. * Frances Gaytan DO - 01/28/2018 11:02 AM EDT Irving, has appt with you today * Blanca Chung M.A. - 01/25/2018 8:13 AM EDTFrom: Deb Malcolm To: Frances Gaytan DO Sent: 01/24/2018 5:55 PM EDT Subject: Juan-Danlos Syndrome My clinical nurse specialist at [facility] went over my medical history and asked if I've ever been testedfor Juan-Danlos Syndrome. I have not. 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 I have mild scoliosis and have always had easy bruising. I was told a blood test could diagnose this. Can we schedule an appt or just have me come in for lab work please? documented in this encounter Plan of Treatment Not on file documented as of this encounter Visit Diagnoses Not on filedocumented in this encounter Care Teams Virginia Line Attendant Relationship Specialty Start Date End Date Frances [...] Medicine 08/05/19 03/05/21 Rosalva Stephen MD [address] [place] [address] [id number] PCP - General Internal Medicine 03/06/21 03/11/21 Frances Sung DO PCP - General Internal Medicine 03/12/21 03/31/21 Rosalva Stephen MD [address] [place] [address] [id number] PCP - General Internal Medicine 04/01/21 documented as of this encounter
--- OUTSIDE RECORDS SUMMARY | 2025-10-04 07:57 | XMS_ITS | Encounter Summary ---
Author Organization [facility] Prior to 08/12/[address] [place] [address] Care Team Providers Care Career And Guidance Counselor Name Role Phone Krakowiak Colasacco, Frances DO [...] Unavailable Rosalva Stephen MD Primary Care Provider [phone] Krakowiak Colasacco, Frances DO Primary Care Pro vider Unavailable Rosalva Stephen MD Primary Care Provider [phone] Encounter Details Date Type Department Care Team Description 02/15/2016 MRI TECH/[facility] Report Medical Records [address] [place] [address] Abstract, Provider Social History Tobacco Use Types [...] filedocumented in this encounter Care Teams Career And Guidance Counselor Relationship Specialty Start Date End Date Frances [...] Medicine 08/05/19 03/05/21 Rosalva Stephen MD [address] [place] [address] [id number] PCP - General Internal Medicine 03/06/21 03/11/21 Frances Sung DO PCP - General Internal Medicine 03/12/21 03/31/21 Rosalva Stephen MD [address] [place] [address] [id number] PCP - General Internal Medicine 04/01/21 documented as of this encounter
--- OUTSIDE RECORDS SUMMARY | 2025-10-04 07:57 | XMS_ITS | Encounter Summary ---
Author Organization [facility] Prior to 08/12/[address] [place] [address] 30701 Care Team Providers Care Laydown Machine Operator Name Role Phone Frances Sung DO Primary Care Pro vider Unavailable Rosalva Stephen MD Primary Care Provider [phone] Frances Sung DO Primary Care Pro vider Unavailable Rosalva Stephen MD Primary Care Provider [phone] Encounter Details Date Type Department Care Team Description 12/22/2019 Pt. 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 Also with a h/o uterine prolapse. 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 Edison Pisano in [place] and [facility] in [place]. We did not schedule followup today, but would like to see her back in a couple of years in order to review her variant for possible reclassification. Sincerely, Karoline Sultana NP Medical Genetics CC: PCP documented in this encounter Plan of Treatment Not on file documented as of this encounter Visit Diagnoses Not on filedocumented in this encounter Care Teams Laydown Machine Operator Relationship Specialty Start Date End Date Frances Sung DO PCP - General Internal Medicine 08/05/19 03/05/21 Rosalva Stephen MD [address] [place] [address] [phone] PCP - General Internal Medicine 03/06/21 03/11/21 Frances Sung DO PCP - General Internal Medicine 03/12/21 03/31/21 Rosalva Stephen MD [address] [place] [address] [id number] PCP - General Internal Medicine 04/01/21 documented as of this encounter
--- OUTSIDE RECORDS SUMMARY | 2025-10-04 07:58 | XMS_ITS | Encounter Summary ---
Author Organization [facility] Prior to 08/12/[address] [place] [address] 9[address] Care Team Providers Care Gatehouse Attendant Name Role Phone Frances Sung DO Primary Care Pro vider Unavailable Milton Hummel Primary Care Provider Unav ailable Rj Lino MD Primary Care Provider Unava ilable Milton Hummel Primary Care Provider Unav ailable Frances Sung DO Primary Care Pro vider Unavailable Rosalva Stephen MD Primary Care Provider [phone] Frances Sung DO Primary Care Pro vider Unavailable Rosalva Stephen MD Primary Care Provider [phone] Encounter Details Date Type Department Care Team Description 11/08/2018 [facility] Medical Records [address] [place] [address] Abstract, Provider Social History Tobacco Use Types [...] on filedocumented in this encounter Care Teams Gatehouse Attendant Relationship Specialty Start Date End Date Frances Sung DO PCP - General Internal Medicine 07/12/18 02/24/19 Milton Hummel PCP - General Internal Medicine 02/25/19 06/26/19 Rj Lino MD PCP - General Internal Medicine 06/27/19 07/05/19 Milton Hummel PCP - General Internal Medicine 07/06/19 08/04/19 Frances Sung DO PCP - General Internal Medicine 08/05/19 03/05/21 Rosalva Stephen MD [address] [place] [address] [phone] PCP - General Internal Medicine 03/06/21 03/11/21 Frances Sung DO PCP - General Internal Medicine 03/12/21 03/31/21 Rosalva Stephen MD [address] [place] [address] [id number] PCP - General Internal Medicine 04/01/21 documented as of this encounter
--- OUTSIDE RECORDS SUMMARY | 2025-10-04 07:58 | XMS_ITS | Encounter Summary ---
Author Organization [facility] Prior to 08/12/[address] [place] [address] 77262 Care Team Providers Care Local Coordinator Name Role Phone Krakowiak Colasacco, Frances [...] Unavailable Rosalva Stephen MD Primary Care Provider [phone] Krakowiak Colasacco, Frances DO Primary Care Pro vider Unavailable Rosalva Stephen MD Primary Care Provider [phone] Encounter Details Date Type Department Care Team Description 02/22/2018 Casino Runner Report Medical Records [address] [place] [address] Kunal Villegas Social History Tobacco Use Types [...] on filedocumented in this encounter Care Teams Local Coordinator Relationship Specialty Start Date End Date [...] Medicine 08/05/19 03/05/21 Rosalva Stephen MD [address] [place] [address] [phone] PCP - General Internal Medicine 03/06/21 03/11/21 Frances Sung DO PCP - General Internal Medicine 03/12/21 03/31/21 Rosalva Stephen MD [address] [place] [address] [id number] PCP - General Internal Medicine 04/01/21 documented as of this encounter
--- OUTSIDE RECORDS SUMMARY | 2025-10-04 07:58 | XMS_ITS | Encounter Summary ---
Author Organization [facility] Prior to 08/12/[address] [place] [address] 99994 Care Team Providers Care Car Servicer Name Role Phone Krakowiak Colasacco, Frances DO [...] Unavailable Rosalva Stephen MD Primary Care Provider [phone] Krakowiak Colasacco, Frances DO Primary Care Pro vider Unavailable Rosalva Stephen MD Primary Care Provider [phone] Reason for Visit * Reason Onset Date Comments medication problems 07/08/2016 Encounter Details Date Type Department Care Team Description 07/08/2016 Telephone Adult [address] [phone] Krakowiak Colasacco, Frances, DO medication problems Social History Tobacco Use Types Packs/Day Years [...] encounter Miscellaneous Notes * Telephone Encounter - Tigist Gunderson M.A. - 07/08/2016 3:42 PM EDT Please review and advise. * Telephone Encounter - Roseilne Miranda - 07/08/2016 10:07 AM EDT What is the name of the medication patient is having a problem with?: methocarbamol (ROBAXIN) 500 MG tablet What is the problem?: it is not working for patient, patient declines to make another appointment, she would like an alternative medication without being seen if possible Is the patient calling about the problem? NO If the patient is not the caller who is? Is this a NEW medication?: NO How long has the patient been taking this medication? weeks Who prescribed this medication for the patient? Dr Will Who is patients PCP?: Frances Lemus Payor: [facility] SELF FUNDED / Plan: EPO $20 [place] SELF / Product Type: EPO documented in this encounter Plan of Treatment Not on file documented as of this encounter Visit Diagnoses Not on filedocumented in this encounter Care Teams Car Servicer Relationship Specialty Start Date End Date Frances [...] Medicine 08/05/19 03/05/21 Rosalva Stephen MD [address] [place] [address] 9[address] PCP - General Internal Medicine 03/06/21 03/11/21 Frances Sung DO PCP - General Internal Medicine 03/12/21 03/31/21 Rosalva Stephen MD [address] [place] [address] [phone] PCP - General Internal Medicine 04/01/21 documented as of this encounter
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
--- OUTSIDE RECORDS SUMMARY | 2025-10-04 07:58 | XMS_ITS | Encounter Summary ---
Author Organization [facility] Prior to 08/12/[address] [place] [address] 0[address]11 Care Team Providers Care Plunger Machine Operator Name Role Phone Sharla Gaytan, Frances DO Primary Care Pro vider Unavailable Milton Hummel Primary Care Provider Unav ailable Rj Lino MD Primary Care Provider Unava ilable Milton Hummel Primary Care Provider Unav ailable Sharla Westo, Frances DO Primary Care Pro vider Unavailable Rosalva Stephen MD Primary Care Provider [phone] Krakojob Coltwylao, Frances DO Primary Care Pro vider Unavailable Rosalva Stephen MD Primary Care Provider [phone] Encounter Details Date Type Department Care Team Description 11/23/2018 Pt. Non Urgent Medical Question Physiatry - [address] [address] Na Reardon MD [address] [place] [address] Dr ARTI [place] [id number] Social History Tobacco Use Types Packs/Day Years [...] of this encounter Progress Notes * Alyssa yLon L.P.N. - 11/24/2018 7:24 AM ESTFrom: Deb Malcolm To: Na Reardon MD Sent: 11/23/2018 4:45 PM EST Subject: epidural I would like to try the epidural. Can I also see specialist? Would I be referred to the same Dr. Agarwal or Dr. Domingo at [facility]? documented in this encounter Plan of Treatment Not on file documented as of this encounter Visit Diagnoses Not on filedocumented in this encounter Care Teams Plunger Machine Operator Relationship Specialty Start Date End Date Frances Sung DO PCP - General Internal Medicine 07/12/18 02/24/19 Milton Hummel PCP - General Internal Medicine 02/25/19 06/26/19 Rj Lino MD PCP - General Internal Medicine 06/27/19 07/05/19 Milton Hummel PCP - General Internal Medicine 07/06/19 08/04/19 Frances Sung DO PCP - General Internal Medicine 08/05/19 03/05/21 Rosalva Stephen MD [address] [place] [phone] PCP - General Internal Medicine 03/06/21 03/11/21 Frances Sung, PCP - General Internal Medicine 03/12/21 03/31/21 Rosalva Stephen MD [address] [place] [phone] PCP - General Internal Medicine 04/01/21 documented as of this encounter
--- OUTSIDE RECORDS SUMMARY | 2025-10-04 07:58 | XMS_ITS | Encounter Summary ---
Author Organization [facility] Prior to 08/12/[address] [place] [address] Care Team Providers Care Events And Promotions Assistant Name Role Phone Frances Sung DO Primary Care Pro vider Unavailable Rosalva Stephen MD Primary Care Provider [phone] Frances Sung DO Primary Care Pro vider Unavailable Rosalva Stephen MD Primary Care Provider [phone] Encounter Details Date Type Department Care Team Description 11/16/2019 Marshmallow Machine Operator Report Medical Records [address] [place] [address] Karoline Sultana Social History Tobacco Use Types [...] on filedocumented in this encounter Care Teams Events And Promotions Assistant Relationship Specialty Start Date End Date Frances Sung DO PCP - General Internal Medicine 08/05/19 03/05/21 Rosalva Stephen MD [address] [place] [address] [phone] PCP - General Internal Medicine 03/06/21 03/11/21 Frances Sung DO PCP - General Internal Medicine 03/12/21 03/31/21 Rosalva Stephen MD [address] [place] [address] [phone] PCP - General Internal Medicine 04/01/21 documented as of this encounter
--- OUTSIDE RECORDS SUMMARY | 2025-10-04 07:58 | XMS_ITS | Encounter Summary ---
Author Organization [facility] Prior to 08/12/[address] [place] [address] 23260 Care Team Providers Care Igniter Assembler Name Role Phone Krakowiak Colasacco, Frances [...] Unavailable Rosalva Stephen MD Primary Care Provider [phone] Krakowiak Colasacco, Frances DO Primary Care Pro vider Unavailable Rosalva Stephen MD Primary Care Provider [phone] Encounter Details Date Type Department Care Team Description 11/17/2016 Rock Singer Report Medical Records [address] [place] [address] Rehab., Can Social History Tobacco Use Types Packs/Day [...] on filedocumented in this encounter Care Teams Igniter Assembler Relationship Specialty Start Date End Date [...] Medicine 08/05/19 03/05/21 Rosalva Stephen MD [address] [place] [address] [phone] PCP - General Internal Medicine 03/06/21 03/11/21 Frances Sung DO PCP - General Internal Medicine 03/12/21 03/31/21 Rosalva Stephen MD [address] [place] [address] [id number] PCP - General Internal Medicine 04/01/21 documented as of this encounter
--- OUTSIDE RECORDS SUMMARY | 2025-10-04 07:58 | XMS_ITS | Encounter Summary ---
Author Organization [facility] Prior to 08/12/[address] [place] [address] 29344 Care Team Providers Care Lathing Supervisor Name Role Phone Rosalva Stephen MD Primary Care Provider [phone] Encounter Details Date Type Department Care Team Description 01/14/2024 Healthcare Associate Report Medical Records [address] [place] [address] Sixto Olmedo DO Social History Tobacco Use [...] on filedocumented in this encounter Care Teams Lathing Supervisor Relationship Specialty Start Date End Date Rosalva Stephen MD [address] [place], [place] [phone] PCP - General Internal Medicine 04/01/21 documented as of this encounter
--- OUTSIDE RECORDS SUMMARY | 2025-10-04 07:58 | XMS_ITS | Encounter Summary ---
Author Organization [facility] Prior to 08/12/[address] [place] [address] 8[address]81 Care Team Providers Care Security Intern Name Role Phone Rosalva Stephen MD Primary Care Provider [phone] Encounter Details Date Type Department Care Team Description 05/17/2024 Supervising Bailiff Report Medical Records [address] [place] [address] Sixto Olmedo DO Social History Tobacco Use [...] on filedocumented in this encounter Care Teams Security Intern Relationship Specialty Start Date End Date Rosalva Stephen MD [address] [place], [place] [phone] PCP - General Internal Medicine 04/01/21 documented as of this encounter
--- OUTSIDE RECORDS SUMMARY | 2025-10-04 07:58 | XMS_ITS | Encounter Summary ---
Author Organization [facility] Prior to 08/12/[address] [place] [address] Care Team Providers Care Carpet Layer Helper Name Role Phone Sharla Gaytan, Frances DO Primary Care Pro vider Unavailable Milton Hummel Primary Care Provider Unav ailRj Pyle MD Primary Care Provider Unava ilable Milton Hummel Primary Care Provider Unav ailable Sharla Westo, Frances DO Primary Care Pro vider Unavailable Rosalva Stephen MD Primary Care Provider [phone] Sharla Coltwylao, Frances DO Primary Care Pro vider Unavailable Rosalva Stephen MD Primary Care Provider [phone] Reason for Visit * Reason Comments E-prescribe Rx Request Encounter Details Date Type Department Care Team Description 12/15/2018 Refill Physiatry - [address] [address] Na Reardon MD [address] [place] [address] Dr [place] [id number] E-prescribe Rx Request Social History Tobacco Use [...] to call * Telephone Encounter - Na Rearodn MD - 12/16/2018 9:08 AM EST Patient [...] on filedocumented in this encounter Care Teams Carpet Layer Helper Relationship Specialty Start Date End Date Frances Sung DO PCP - General Internal Medicine 07/12/18 02/24/19 Milton Hummel PCP - General Internal Medicine 02/25/19 06/26/19 Rj Lino MD PCP - General Internal Medicine 06/27/19 07/05/19 Milton Hummel PCP - General Internal Medicine 07/06/19 08/04/19 Frances Sung DO PCP - General Internal Medicine 08/05/19 03/05/21 Rosalva Stephen MD [address] [place] [address] 9[address] PCP - General Internal Medicine 03/06/21 03/11/21 Frances Sung DO PCP - General Internal Medicine 03/12/21 03/31/21 Rosalva Stephen MD [address] [place] [address] PCP - General Internal Medicine 04/01/21 documented as of this encounter
--- OUTSIDE RECORDS SUMMARY | 2025-10-04 07:58 | XMS_ITS | Encounter Summary ---
Author Organization [facility] Prior to 08/12/[address] [place] [address] Care Team Providers Care Legal Administrative Assistant Name Role Phone [place] Colasacco, Frances DO [...] Unavailable Rosalva Stephen MD Primary Care Provider [phone] [place] Colasacco, Frances DO Primary Care Pro vider Unavailable Rosalva Stephen MD Primary Care Provider [phone] Encounter Details Date Type Department Care Team Description 02/05/2018 Pt. Non Urgent Medical Question Physiatry - [place] [address] [place] [id number] Na Reardon MD [address] [place] [address] Dr [place], [place] [id number] Social History Tobacco Use Types Packs/Day Years [...] Progress Notes * Susan Nielson M.A. - 02/05/2018 10:59 AM EDTFrom: Deb Malcolm To: Na Reardon MD Sent: 02/05/2018 10:29 AM EDT Subject: left [place] [address] A Member of the [facility] Patient: DEB MALCOLM : 1975 -04:00 Age: 42 Gender: F Account: [id number] Report: MR Shoulder LT W Ordered By: LUCAS VAUGHN Date: 02/05/2018 7:49:17 AM -04:00 Status: F PROCEDURE: MR Shoulder LT W INDICATION: Left shoulder pain and weakness Patient reports previous left shoulder surgery. COMPARISON: 09/26/2013 TECHNIQUE: Multiplanar multisequence MRI of the left shoulder performed following intra-articular gadolinium administration as described in the conventional arthrogram of the same day. FINDINGS: Mild widening and increased signal at the acromial clavicular joint representing a new finding from the prior exam. The rotator cuff tendons are intact. There is no evidence for rotator cuff muscle atrophy or fatty infiltration. The long head of the biceps tendon is intact and the extra-ar ticular portion is identified within the bicipital groove. There is a sublabral foramen at the anterior superior labrum which is not changed from the prior exam and compatible with a normal anatomical variant. There is irregularity of the humeral aspect of the inferior humeral ligament. Thin synechiae are seen within the axillary recess. Glenohumeral alignment is maintained. Mild subchondral cystic changes seen within the humeral head deep to the infraspinatus footprint. Glenohumeral articular cartilage appears maintained. IMPRESSION: Irregularity of the humeral attachment of the inferior glenohumeral ligament and axillary recess which is concerning for humeral avulsion of the inferior glenohumeral ligament. There is no evidence for rotator cuff tear Findings consistent with stable labral foramen at the anterior superior labrum which is a normal anatomical variant and similar in configuration to the previous exam. Mild widening of the acromioclavicular joint which may represent postsurgical changes or chronic low-grade sprain. [id number] Dictated By: MARS CORTES Date Dictated: 02/05/2018 7:49:17 AM -04:00 Signed By: MARS CORTES Date Signed: 02/05/2018 8:15:49 AM -04:00 documented in this encounter Plan of Treatment Not on file documented as of this encounter Visit Diagnoses Not on filedocumented in this encounter Care Teams Legal Administrative Assistant Relationship Specialty Start Date End [...] Medicine 08/05/19 03/05/21 Rosalva Stephen MD [address] [place] [id number] PCP - General Internal Medicine 03/06/21 03/11/21 Frances Sung DO PCP - General Internal Medicine 03/12/21 03/31/21 Rosalva Stephen MD [address] [place] [id number] PCP - General Internal Medicine 04/01/21 documented as of this encounter
--- OUTSIDE RECORDS SUMMARY | 2025-10-04 07:58 | XMS_ITS | Encounter Summary ---
Author Organization [facility] Prior to 08/12/[address] [place] [address] Care Team Providers Care Wheelchair Driver Name Role Phone [place] Colasacco, Frances DO [...] Unavailable Rosalva Stephen MD Primary Care Provider [phone] [place] Colasacco, Frances DO Primary Care Pro vider Unavailable Rosalva Stephen MD Primary Care Provider [phone] Encounter Details Date Type Department Care Team Description 08/07/2016 Refill Adult Medicine [address] [address] Charan Addison MD Social History Tobacco Use [...] Addison please advise * Telephone Encounter - Kharisusan Brown - 08/07/2016 1:41 PM EDTFrom: Deb Malcolm To: Charan Addison MD Sent: 08/07/2016 12:10 PM EDT Subject: Medication Renewal Request Original authorizing provider: MD Deb Wilcox would like a refill of the following medications: cyclobenzaprine (FLEXERIL) 10 MG tablet [Charan Addison MD] Preferred pharmacy: [id number] Comment: Medication renewals requested in this message routed to other providers: tramadol (ULTRAM) 50 MG tablet [Na Reardon MD] documented in this encounter Plan of Treatment Not on file documented as of this encounter Visit Diagnoses Not on filedocumented in this encounter Care Teams Wheelchair Driver Relationship Specialty Start Date End Date Frances [...] Medicine 08/05/19 03/05/21 Rosalva Stephen MD [address] [place] [id number] PCP - General Internal Medicine 03/06/21 03/11/21 Frances Sung DO PCP - General Internal Medicine 03/12/21 03/31/21 Rosalva Stephen MD [address] [place] [address] [phone] PCP - General Internal Medicine 04/01/21 documented as of this encounter
--- OUTSIDE RECORDS SUMMARY | 2025-10-04 07:58 | XMS_ITS | Patient Health Record ---
Author Organization [facility] [address] Address [address] [place] [address] Care Team Providers Care Weaver Hand Loom Name Role Phone Betito Rico Primary Care Provider Unavailab Jacquie Card Unavailable [phone] LAURI LEIVA Unavailable [phone] Allergies Allergen (clinical drug ingredient) Drug/Non Drug [...] 08:34:17 AM > referral form faxed to [phone] and pt given phone [phone] Clinical Notes Sparkle Reynolds 02:49:32 PM > I called the office, and they informed me that they reached out to the patient three times and even sent a letter, but have not received a response. Referral Priority Routine Medications Medication SIG (Take, Route, Frequency, Duration) Notes Start Date End Date Status Zepbound 2.5 MG/0.5ML Solution Auto-injector 0.5 mL Subcutaneous weekly; Duration: 30 days 06/19/2025 Not-Taking Ondansetron 4 MG Tablet Disintegrating 1 tablet on the tongue and allow to dissolve Orally Once a day; Duration: 30 days As needed nausea 05/08/2025 Active Phentermine HCl 15 MG Capsule 1 capsule Orally Once a day; Duration: 30 days 06/26/2025 Not-Thuy hicks Social History Tobacco Use: Social History Observation Description Date Details (start date - stop date) Never Smoker NA - NA Social History Drugs/Alcohol: Social Info Question Answer Notes Drugs Have you used drugs other than those for medical reasons in the past 12 months? No Drug/Alcohol: Social Info Question Answer Notes AUDIT-C (Standard) Did you have a drink containing alcohol in the past year? Yes How often did you have a drink containing alcohol in the past year? 2 to 4 times a month (2 points) How many drinks did you have on a typical day when you were drinking in the past year? 1 or 2 drinks (0 point) How often did you have six or more drinks on one occasion in the past year? Never (0 point) Points 2 Interpretation Negative Tobacco Use: Social Info Question Answer Notes Tobacco Control (Standard) Tobacco use: Nonsmoker Section Notes: etoh: infrequent tobacco: never drug use: marijuana etoh: infrequent tobacco: never drug use: marijuana etoh: infrequent tobacco: never drug use: marijuana etoh: infrequent tobacco: never drug use: marijuana etoh: infrequent tobacco: never drug use: marijuana etoh: infrequent tobacco: never drug use: marijuana Problems Problem Type SNOMED Code ICD Code Onset Dates Problem Status W/U Status Risk Notes Problem Overweight (243007291) Overweight (E66.3) Active confirmed Problem Obstructive sleep apnea (49781693) Obstructive sleep apnea (G47.33) Active confirmed Problem Obese class I (260127198655787 ) BMI 33.0-33.9,adult (Z68.33) Active confirmed Problem Body mass index 30.00 to 34.99 (531030497760484 ) BMI 31.0-31.9,adult (Z68.31) Active confirmed Problem Depression (464040893) Depression (F32.9) Active confirmed Problem Obesity (441590547) Moderate obesity (E66.9) Active confirmed Vital Signs Heart Rate 55 /min 08/14/2025 Oximetry 95 % 08/14/2025 Blood pressure diastolic 60 mm Hg 08/14/2025 Height 63 in 08/14/2025 Blood pressure systolic 100 mm Hg 08/14/2025 Weight 155.1 lbs 08/14/2025 BMI 27.47 kg/m2 08/14/2025 Encounters Encounter Location Date Provider Diagnosis [facility] [address] [address] 03/17/2025 Jacquie Normoyle Moderate obesity E66 .9 ; BMI 31.0-31.9,adult Z68.31 ; Obstructive sleep apnea G47.33 ; Depression F32.9 and Encounter for examination of blood pressure without abnormal findings Z01.30 [place] [address] 04/17/2025 Jacquie Normoyle BMI 33.0-33.9,adult Z68.33 ; Moderate obesity E66.9 ; Obstructive sleep apnea G47.33 ; Depression F32.9 and Encounter for examination of blood pressure without abnormal findings Z01.30 [facility] [address] [facility] [address] [address] 05/22/2025 Jacquie Normoyle BMI 29.0-29.9,adult Z68.29 ; Obstructive sleep apnea G47.33 ; Moderate obesity E66.9 ; Depression F32.9 and Encounter for examination of blood pressure without abnormal findings Z01.30 [place] [address] [address] 06/19/2025 Jacquie Normoyle BMI 28.0-28.9,adult Z68.28 ; Obstructive sleep apnea G47.33 ; Depression F32.9 ; Moderate obesity E66.9 and Encounter for examination of blood pressure without abnormal findings Z01.30 [place] [address] [address] 07/17/2025 Jacquie Normoyle BMI 28.0-28.9,adult Z68.28 ; Obstructive sleep apnea G47.33 ; Depression F32.9 ; Moderate obesity E66.9 and Encounter for examination of blood pressure without abnormal findings Z01.30 [facility] [address] [place], [place] 08/14/2025 Jacquie Normoyle Overweight E66.3 ; B TX 26.0-26.9,adult Z68.26 ; Obstructive sleep apnea G47.33 ; Depression F32.9 and Encounter for examination of blood pressure without abnormal findings Z01.30 [facility] [address] [place], [place] 03/17/2025 Jacquie Normoyle [facility] [address] [place], [place] 03/22/2025 Jacquie Normoyle [facility] [address] [place] [address] 04/19/2025 Jacquie Normoyle [facility] [address] 04/19/2025 Jacquie Normoyle Moderate obesity E66 .[address] [facility] [address] [place] [address] 04/19/2025 Jacquie Normoyle Moderate obesity E66 .9 [facility] [address] [place], [place] 04/19/2025 LAURI CORTEST Moderate obesity E66 .9 [facility] [address] [place], [place] 05/02/2025 Jacquie Normoyle [facility] [address] [place], [place] 05/02/2025 Jacquie Normoyle [facility] [address] [place] [address] 06/19/2025 Jacquie Normoyle Obstructive sleep apnea G47.33 [facility] [address] [place], [place] 08/14/2025 Jacquie Normoyle [facility] [address] [place], [place] 04/19/2025 Jacquie Normoyle [facility] [address] [place], [place] 05/05/2025 Jacquie Normoyle [facility] [address] [address] 06/15/2025 Jacquie Normoyle [facility] [address] [address] 06/23/2025 Jacquie Normoyle [facility] [address] [address] 06/23/2025 Jacquie Normoyle Moderate obesity E66 .9 [facility] [address] [address] 06/29/2025 Jacquie Normoyle [facility] [address] [address] 06/29/2025 Jacquie Normoyle [facility] [address] [address] 08/08/2025 Jacquie Normoyle Assessments Encounter Date Diagnosis (ICD [...] follows with sleep study service in [facility], and is requesting referral to nearby sleep medicine services. She does have a CPAP at home. Continue nocturnal CPAP. Start Zepbound 2.5 mg weekly injections to help with GEORGES. Cortisol academic manager started today. Referral to sleep medicine [...] Consider using apps like 7 minute excercise, mySearcheezepal, lose it, stick as needed for self-monitoring and weight management. Consider group exercises. Consider hiring a marine animal trainer. Regular exercise is castro to sustainable health [...] counseling and psychiatry and Dr Chambers at [facility]. We would like to cover regular topics [...] Dictation was accomplished with the use of [employer] voice recognition software, prone to medical misidentifications [...] follows with sleep study service in [facility], and is requesting referral to nearby sleep medicine services. She does have a CPAP at home. Continue nocturnal CPAP. Start Zepbound 2.5 mg weekly injections to help with GEORGES. Cortisol academic manager started today. Referral to sleep medicine [...] Consider using apps like 7 minute excercise, [employer]nesspal, lose it, stick as needed for self-monitoring and weight management. Consider group exercises. Consider hiring a marine animal trainer. Regular exercise is castro to sustainable health [...] counseling and psychiatry and Dr Chambers at [facility]. We would like to cover regular topics [...] Dictation was accomplished with the use of [employer] voice recognition software, prone to medical misidentifications [...] management. Consider group exercises. Consider hiring a marine animal trainer. Regular exercise is castro to sustainable health [...] counseling and psychiatry and Dr Chambers at [facility]. We would like to cover regular topics [...] Dictation was accomplished with the use of [employer] voice recognition software, prone to medical misidentifications [...] Consider using apps like 7 minute excercise, Clerts!pal, lose it, stick as needed for self-monitoring and weight management. Consider group exercises. Consider hiring a marine animal trainer. Regular exercise is castro to sustainable health [...] counseling and psychiatry and Dr Chambers at [facility]. We would like to cover regular topics [...] Dictation was accomplished with the use of [employer] voice recognition software, prone to medical misidentifications [...] arise. 06/23/2025 Moderate obesity (ICD-10 - E66.9) 07/17/2025 BMI 28.0-28.9,adul t (ICD-10 - Z68.28) Deb [...] or weight loss medications combined with Zepbound. 07/17/2025: Weight 162.8 pounds, BMI 28.3. On review of body composition scan, skeletal muscle mass decreased 3 pounds, fat mass decreased 1 pound. Continues off of medications pending response to [place] appeal. Sample of Wegovy given in office today. Discussed protein, exercise, hydration goals. Follow-up in 4 weeks. #Obstructive sleep apnea: [...] level. Consider using apps like 7 minute exceNanoBioise, Clerts!pal, lose it, stick as needed for self-monitoring and weight management. Consider group exercises. Consider hiring a marine animal trainer. Regular exercise is castro to sustainable health [...] counseling and psychiatry and Dr Chambers at [facility]. We would like to cover regular topics [...] Dictation was accomplished with the use of [employer] voice recognition software, prone to medical misidentifications and grammatical errors. This is unintentional and the practitioner does try to identify and correct these, but some could still be present. Please do not hesitate to contact practitioner for clarification. All questions answered to patients satisfaction. Patient verbalized understanding of diagnosis and treatments explained. To call sooner prior to next visit it any questions/concerns arise. 08/14/2025 Overweight (ICD-10 - E66.3) Deb is a 49-year-old female with past medical history of GEORGES who presents for weight management f/u. Medical history, labs, allergies, medications, and social [...] #Obesity: 03/17/2025: Weight 177 pounds, BMI 31.35. 04/17/2025: Weight 187.7 pounds, BMI 33.25. Patient has gained 6 pounds of fat mass and 2 pounds of muscle mass since last visit. 05/22/2025: Weight 171.2 pounds, BMI 29.7. On review of body composition scan, skeletal muscle mass decreased 1 pound, however, skeletal muscle mass percentage increased to 27.3%, visceral adipose tissue decreased from 3.8-3.4, waist circumference decreased from 46 inches to 42 inches, fat mass decreased 8 pounds total. 06/19/2025: Weight 166.3 pounds, BMI 28.9. On review of body composition scan, skeletal muscle mass decreased 1 pound, fat mass decreased 3 pounds, visceral adipose tissue decreased from 3.4-3.0, waist circumference decreased 1 inch. 07/17/2025: Weight 162.8 pounds, BMI 28.3. On review of body composition scan, skeletal muscle mass decreased 3 pounds, fat mass decreased 1 pound. 08/14/2025: Weight 155.1 pounds, BMI 26.9. Congratulated on effort. Continues on sample of Wegovy 0.25 mg weekly injections. On review of body composition scan, skeletal muscle mass increased 1 pound, fat mass decreased 9.5 pounds. Discussed exercise, hydration, protein goals. Patient expresses interest in body contouring. Sample of Wegovy given in office today. Follow-up in 4 to 6 weeks. #Obstructive sleep apnea: Had a CPAP years ago but has since broken. Referral to sleep medicine services was placed previous visit however her PCP ordered a home study which was reportedly normal. No longer using CPAP. #Depression: Continues to decline medication at this time. Continue following with psychiatry monthly and therapy weekly. Denies any thoughts of hurting self or others at this time. encouraged to call the office if their symptoms worsen or persist. Total time spent today was 30 minutes of which greater than 50% was spent on coordinating and counseling Case discussed with collaborating physician Yvette Sexton who reviewed the assessment and plan. Chart, medications, labs, vital signs reviewed. Dictation was accomplished with the use of [employer] voice recognition software, prone to medical misidentifications and grammatical errors. This is unintentional and the practitioner does try to identify and correct these, but some could still be present. Please do not hesitate to contact practitioner for clarification. All questions answered to patients satisfaction. Patient verbalized understanding of diagnosis and treatments explained. To call sooner prior to next visit it any questions/concerns arise. 08/14/2025 BMI 26.0-26.9,adul t (ICD-10 - Z68.26) Deb is a 49-year-old female with past medical history of GEORGES who presents for weight management f/u. Medical history, labs, allergies, medications, and social [...] #Obesity: 03/17/2025: Weight 177 pounds, BMI 31.35. 04/17/2025: Weight 187.7 pounds, BMI 33.25. Patient has gained 6 pounds of fat mass and 2 pounds of muscle mass since last visit. 05/22/2025: Weight 171.2 pounds, BMI 29.7. On review of body composition scan, skeletal muscle mass decreased 1 pound, however, skeletal muscle mass percentage increased to 27.3%, visceral adipose tissue decreased from 3.8-3.4, waist circumference decreased from 46 inches to 42 inches, fat mass decreased 8 pounds total. 06/19/2025: Weight 166.3 pounds, BMI 28.9. On review of body composition scan, skeletal muscle mass decreased 1 pound, fat mass decreased 3 pounds, visceral adipose tissue decreased from 3.4-3.0, waist circumference decreased 1 inch. 07/17/2025: Weight 162.8 pounds, BMI 28.3. On review of body composition scan, skeletal muscle mass decreased 3 pounds, fat mass decreased 1 pound. 08/14/2025: Weight 155.1 pounds, BMI 26.9. Congratulated on effort. Continues on sample of Wegovy 0.25 mg weekly injections. On review of body composition scan, skeletal muscle mass increased 1 pound, fat mass decreased 9.5 pounds. Discussed exercise, hydration, protein goals. Patient expresses interest in body contouring. Sample of Wegovy given in office today. Follow-up in 4 to 6 weeks. #Obstructive sleep apnea: Had a CPAP years ago but has since broken. Referral to sleep medicine services was placed previous visit however her PCP ordered a home study which was reportedly normal. No longer using CPAP. #Depression: Continues to decline medication at this time. Continue following with psychiatry monthly and therapy weekly. Denies any thoughts of hurting self or others at this time. encouraged to call the office if their symptoms worsen or persist. Total time spent today was 30 minutes of which greater than 50% was spent on coordinating and counseling Case discussed with collaborating physician Yvette Sexton who reviewed the assessment and plan. Chart, medications, labs, vital signs reviewed. Dictation was accomplished with the use of [employer] voice recognition software, prone to medical misidentifications [...] level. Consider using apps like 7 minute exceNanoBioise, Clerts!pal, lose it, stick as needed for self-monitoring and weight management. Consider group exercises. Consider hiring a marine animal trainer. Regular exercise is castro to sustainable health [...] counseling and psychiatry and Dr Chambers at [facility]. We would like to cover regular topics [...] Dictation was accomplished with the use of [employer] voice recognition software, prone to medical misidentifications [...] management. Consider group exercises. Consider hiring a marine animal trainer. Regular exercise is castro to sustainable health [...] counseling and psychiatry and Dr Chambers at [facility]. We would like to cover regular topics [...] Dictation was accomplished with the use of [employer] voice recognition software, prone to medical misidentifications and grammatical errors. This is unintentional and the practitioner does try to identify and correct these, but some could still be present. Please do not hesitate to contact practitioner for clarification. All questions answered to patients satisfaction. Patient verbalized understanding of diagnosis and treatments explained. To call sooner prior to next visit it any questions/concerns arise. 08/14/2025 Obstructive sleep apnea (ICD-10 - G47.33) Deb is a 49-year-old female with past medical history of GEORGES who presents for weight management f/u. Medical history, labs, allergies, medications, and social [...] #Obesity: 03/17/2025: Weight 177 pounds, BMI 31.35. 04/17/2025: Weight 187.7 pounds, BMI 33.25. Patient has gained 6 pounds of fat mass and 2 pounds of muscle mass since last visit. 05/22/2025: Weight 171.2 pounds, BMI 29.7. On review of body composition scan, skeletal muscle mass decreased 1 pound, however, skeletal muscle mass percentage increased to 27.3%, visceral adipose tissue decreased from 3.8-3.4, waist circumference decreased from 46 inches to 42 inches, fat mass decreased 8 pounds total. 06/19/2025: Weight 166.3 pounds, BMI 28.9. On review of body composition scan, skeletal muscle mass decreased 1 pound, fat mass decreased 3 pounds, visceral adipose tissue decreased from 3.4-3.0, waist circumference decreased 1 inch. 07/17/2025: Weight 162.8 pounds, BMI 28.3. On review of body composition scan, skeletal muscle mass decreased 3 pounds, fat mass decreased 1 pound. 08/14/2025: Weight 155.1 pounds, BMI 26.9. Congratulated on effort. Continues on sample of Wegovy 0.25 mg weekly injections. On review of body composition scan, skeletal muscle mass increased 1 pound, fat mass decreased 9.5 pounds. Discussed exercise, hydration, protein goals. Patient expresses interest in body contouring. Sample of Wegovy given in office today. Follow-up in 4 to 6 weeks. #Obstructive sleep apnea: Had a CPAP years ago but has since broken. Referral to sleep medicine services was placed previous visit however her PCP ordered a home study which was reportedly normal. No longer using CPAP. #Depression: Continues to decline medication at this time. Continue following with psychiatry monthly and therapy weekly. Denies any thoughts of hurting self or others at this time. encouraged to call the office if their symptoms worsen or persist. Total time spent today was 30 minutes of which greater than 50% was spent on coordinating and counseling Case discussed with collaborating physician Yvette Sexton who reviewed the assessment and plan. Chart, medications, labs, vital signs reviewed. Dictation was accomplished with the use of [employer] voice recognition software, prone to medical misidentifications [...] Consider using apps like 7 minute excercise, mySearcheezepal, lose it, stick as needed for self-monitoring and weight management. Consider group exercises. Consider hiring a marine animal trainer. Regular exercise is castro to sustainable health [...] counseling and psychiatry and Dr Chambers at [facility]. We would like to cover regular topics [...] Dictation was accomplished with the use of [employer] voice recognition software, prone to medical misidentifications [...] Provider can order medication once approval received. 07/17/2025 Obstructive sleep apnea (ICD-10 - G47.33) Deb [...] or weight loss medications combined with Zepbound. 07/17/2025: Weight 162.8 pounds, BMI 28.3. On review of body composition scan, skeletal muscle mass decreased 3 pounds, fat mass decreased 1 pound. Continues off of medications pending response to [place] appeal. Sample of Harika given in office today. Discussed protein, exercise, hydration goals. Follow-up in 4 weeks. #Obstructive sleep apnea: [...] Consider using apps like 7 minute excercise, Clerts!pal, lose it, stick as needed for self-monitoring and weight management. Consider group exercises. Consider hiring a marine animal trainer. Regular exercise is castro to sustainable health [...] counseling and psychiatry and Dr Chambers at [facility]. We would like to cover regular topics [...] Dictation was accomplished with the use of [employer] voice recognition software, prone to medical misidentifications [...] Consider using apps like 7 minute excercise, [email or web address], lose it, stick as needed for self-monitoring and weight management. Consider group exercises. Consider hiring a marine animal trainer. Regular exercise is castro to sustainable health [...] counseling and psychiatry and Dr Chambers at [facility]. We would like to cover regular topics [...] Dictation was accomplished with the use of [employer] voice recognition software, prone to medical misidentifications [...] Consider using apps like 7 minute excercise, mySearcheezepal, lose it, stick as needed for self-monitoring and weight management. Consider group exercises. Consider hiring a marine animal trainer. Regular exercise is castro to sustainable health [...] counseling and psychiatry and Dr Chambers at [facility]. We would like to cover regular topics [...] Dictation was accomplished with the use of [employer] voice recognition software, prone to medical misidentifications [...] follows with sleep study service in [facility], and is requesting referral to nearby sleep medicine services. She does have a CPAP at home. Continue nocturnal CPAP. Start Zepbound 2.5 mg weekly injections to help with GEORGES. Cortisol academic manager started today. Referral to sleep medicine [...] Consider using apps like 7 minute excercise, Clerts!pal, lose it, stick as needed for self-monitoring and weight management. Consider group exercises. Consider hiring a marine animal trainer. Regular exercise is castro to sustainable health [...] counseling and psychiatry and Dr Chambers at [facility]. We would like to cover regular topics [...] Dictation was accomplished with the use of [employer] voice recognition software, prone to medical misidentifications [...] follows with sleep study service in [facility], and is requesting referral to nearby sleep medicine services. She does have a CPAP at home. Continue nocturnal CPAP. Start Zepbound 2.5 mg weekly injections to help with GEORGES. Cortisol academic manager started today. Referral to sleep medicine [...] Consider using apps like 7 minute excercise, Clerts!pal, lose it, stick as needed for self-monitoring and weight management. Consider group exercises. Consider hiring a marine animal trainer. Regular exercise is castro to sustainable health [...] counseling and psychiatry and Dr Chambers at [facility]. We would like to cover regular topics [...] Dictation was accomplished with the use of [employer] voice recognition software, prone to medical misidentifications [...] Consider using apps like 7 minute excercise, Clerts!pal, lose it, stick as needed for self-monitoring and weight management. Consider group exercises. Consider hiring a marine animal trainer. Regular exercise is castro to sustainable health [...] counseling and psychiatry and Dr Chambers at [facility]. We would like to cover regular topics [...] Dictation was accomplished with the use of [employer] voice recognition software, prone to medical misidentifications [...] Consider using apps like 7 minute excercise, mySearcheezepal, lose it, stick as needed for self-monitoring and weight management. Consider group exercises. Consider hiring a marine animal trainer. Regular exercise is castro to sustainable health [...] counseling and psychiatry and Dr Chambers at [facility]. We would like to cover regular topics [...] Dictation was accomplished with the use of [employer] voice recognition software, prone to medical misidentifications [...] management. Consider group exercises. Consider hiring a marine animal trainer. Regular exercise is castro to sustainable health [...] counseling and psychiatry and Dr Chambers at [facility]. We would like to cover regular topics [...] Dictation was accomplished with the use of [employer] voice recognition software, prone to medical misidentifications and grammatical errors. This is unintentional and the practitioner does try to identify and correct these, but some could still be present. Please do not hesitate to contact practitioner for clarification. All questions answered to patients satisfaction. Patient verbalized understanding of diagnosis and treatments explained. To call sooner prior to next visit it any questions/concerns arise. 07/17/2025 Depression (ICD-10 - F32.9) Deb is a [...] or weight loss medications combined with Zepbound. 07/17/2025: Weight 162.8 pounds, BMI 28.3. On review of body composition scan, skeletal muscle mass decreased 3 pounds, fat mass decreased 1 pound. Continues off of medications pending response to PA appeal. Sample of Wegovy given in office today. Discussed protein, exercise, hydration goals. Follow-up in 4 weeks. #Obstructive sleep apnea: [...] Consider using apps like 7 minute excercise, Clerts!pal, lose it, stick as needed for self-monitoring and weight management. Consider group exercises. Consider hiring a marine animal trainer. Regular exercise is castro to sustainable health [...] counseling and psychiatry and Dr Chambers at [facility]. We would like to cover regular topics [...] Dictation was accomplished with the use of [employer] voice recognition software, prone to medical misidentifications and grammatical errors. This is unintentional and the practitioner does try to identify and correct these, but some could still be present. Please do not hesitate to contact practitioner for clarification. All questions answered to patients satisfaction. Patient verbalized understanding of diagnosis and treatments explained. To call sooner prior to next visit it any questions/concerns arise. 08/14/2025 Depression (ICD-10 - F32.9) Deb is a 49-year-old female with past medical history of GEORGES who presents for weight management f/u. Medical history, labs, allergies, medications, and social [...] #Obesity: 03/17/2025: Weight 177 pounds, BMI 31.35. 04/17/2025: Weight 187.7 pounds, BMI 33.25. Patient has gained 6 pounds of fat mass and 2 pounds of muscle mass since last visit. 05/22/2025: Weight 171.2 pounds, BMI 29.7. On review of body composition scan, skeletal muscle mass decreased 1 pound, however, skeletal muscle mass percentage increased to 27.3%, visceral adipose tissue decreased from 3.8-3.4, waist circumference decreased from 46 inches to 42 inches, fat mass decreased 8 pounds total. 06/19/2025: Weight 166.3 pounds, BMI 28.9. On review of body composition scan, skeletal muscle mass decreased 1 pound, fat mass decreased 3 pounds, visceral adipose tissue decreased from 3.4-3.0, waist circumference decreased 1 inch. 07/17/2025: Weight 162.8 pounds, BMI 28.3. On review of body composition scan, skeletal muscle mass decreased 3 pounds, fat mass decreased 1 pound. 08/14/2025: Weight 155.1 pounds, BMI 26.9. Congratulated on effort. Continues on sample of Wegovy 0.25 mg weekly injections. On review of body composition scan, skeletal muscle mass increased 1 pound, fat mass decreased 9.5 pounds. Discussed exercise, hydration, protein goals. Patient expresses interest in body contouring. Sample of Wegovy given in office today. Follow-up in 4 to 6 weeks. #Obstructive sleep apnea: Had a CPAP years ago but has since broken. Referral to sleep medicine services was placed previous visit however her PCP ordered a home study which was reportedly normal. No longer using CPAP. #Depression: Continues to decline medication at this time. Continue following with psychiatry monthly and therapy weekly. Denies any thoughts of hurting self or others at this time. encouraged to call the office if their symptoms worsen or persist. Total time spent today was 30 minutes of which greater than 50% was spent on coordinating and counseling Case discussed with collaborating physician Yvette Sexton who reviewed the assessment and plan. Chart, medications, labs, vital signs reviewed. Dictation was accomplished with the use of [employer] voice recognition software, prone to medical misidentifications [...] Consider using apps like 7 minute excercise, Clerts!pal, lose it, stick as needed for self-monitoring and weight management. Consider group exercises. Consider hiring a marine animal trainer. Regular exercise is castro to sustainable health [...] counseling and psychiatry and Dr Chambers at [facility]. We would like to cover regular topics [...] Dictation was accomplished with the use of [employer] voice recognition software, prone to medical misidentifications [...] management. Consider group exercises. Consider hiring a marine animal trainer. Regular exercise is castro to sustainable health [...] counseling and psychiatry and Dr Chambers at [facility]. We would like to cover regular topics [...] Dictation was accomplished with the use of [employer] voice recognition software, prone to medical misidentifications and grammatical errors. This is unintentional and the practitioner does try to identify and correct these, but some could still be present. Please do not hesitate to contact practitioner for clarification. All questions answered to patients satisfaction. Patient verbalized understanding of diagnosis and treatments explained. To call sooner prior to next visit it any questions/concerns arise. 07/17/2025 Moderate obesity (ICD-10 - E66.9) Deb is [...] or weight loss medications combined with Zepbound. 07/17/2025: Weight 162.8 pounds, BMI 28.3. On review of body composition scan, skeletal muscle mass decreased 3 pounds, fat mass decreased 1 pound. Continues off of medications pending response to PA appeal. Sample of Wegovy given in office today. Discussed protein, exercise, hydration goals. Follow-up in 4 weeks. #Obstructive sleep apnea: [...] management. Consider group exercises. Consider hiring a marine animal trainer. Regular exercise is castro to sustainable health [...] counseling and psychiatry and Dr Chambers at [facility]. We would like to cover regular topics [...] Dictation was accomplished with the use of [employer] voice recognition software, prone to medical misidentifications and grammatical errors. This is unintentional and the practitioner does try to identify and correct these, but some could still be present. Please do not hesitate to contact practitioner for clarification. All questions answered to patients satisfaction. Patient verbalized understanding of diagnosis and treatments explained. To call sooner prior to next visit it any questions/concerns arise. 08/14/2025 Encounter for examination of blood pressure without abnormal findings (ICD-10 - Z01.30) Deb is a 49-year-old female with past medical history of GEORGES who presents for weight management f/u. Medical history, labs, allergies, medications, and social [...] #Obesity: 03/17/2025: Weight 177 pounds, BMI 31.35. 04/17/2025: Weight 187.7 pounds, BMI 33.25. Patient has gained 6 pounds of fat mass and 2 pounds of muscle mass since last visit. 05/22/2025: Weight 171.2 pounds, BMI 29.7. On review of body composition scan, skeletal muscle mass decreased 1 pound, however, skeletal muscle mass percentage increased to 27.3%, visceral adipose tissue decreased from 3.8-3.4, waist circumference decreased from 46 inches to 42 inches, fat mass decreased 8 pounds total. 06/19/2025: Weight 166.3 pounds, BMI 28.9. On review of body composition scan, skeletal muscle mass decreased 1 pound, fat mass decreased 3 pounds, visceral adipose tissue decreased from 3.4-3.0, waist circumference decreased 1 inch. 07/17/2025: Weight 162.8 pounds, BMI 28.3. On review of body composition scan, skeletal muscle mass decreased 3 pounds, fat mass decreased 1 pound. 08/14/2025: Weight 155.1 pounds, BMI 26.9. Congratulated on effort. Continues on sample of Wegovy 0.25 mg weekly injections. On review of body composition scan, skeletal muscle mass increased 1 pound, fat mass decreased 9.5 pounds. Discussed exercise, hydration, protein goals. Patient expresses interest in body contouring. Sample of Wegovy given in office today. Follow-up in 4 to 6 weeks. #Obstructive sleep apnea: Had a CPAP years ago but has since broken. Referral to sleep medicine services was placed previous visit however her PCP ordered a home study which was reportedly normal. No longer using CPAP. #Depression: Continues to decline medication at this time. Continue following with psychiatry monthly and therapy weekly. Denies any thoughts of hurting self or others at this time. encouraged to call the office if their symptoms worsen or persist. Total time spent today was 30 minutes of which greater than 50% was spent on coordinating and counseling Case discussed with collaborating physician Yvette Sexton who reviewed the assessment and plan. Chart, medications, labs, vital signs reviewed. Dictation was accomplished with the use of [employer] voice recognition software, prone to medical misidentifications [...] Consider using apps like 7 minute excercise, mySearcheezepal, lose it, stick as needed for self-monitoring and weight management. Consider group exercises. Consider hiring a marine animal trainer. Regular exercise is castro to sustainable health [...] counseling and psychiatry and Dr Chambers at [facility]. We would like to cover regular topics [...] Dictation was accomplished with the use of [employer] voice recognition software, prone to medical misidentifications [...] Consider using apps like 7 minute excercise, [email or web address], lose it, stick as needed for self-monitoring and weight management. Consider group exercises. Consider hiring a marine animal trainer. Regular exercise is castro to sustainable health [...] counseling and psychiatry and Dr Chambers at [facility]. We would like to cover regular topics [...] Dictation was accomplished with the use of [employer] voice recognition software, prone to medical misidentifications [...] follows with sleep study service in [facility], and is requesting referral to nearby sleep medicine services. She does have a CPAP at home. Continue nocturnal CPAP. Start Zepbound 2.5 mg weekly injections to help with GEORGES. Cortisol academic manager started today. Referral to sleep medicine [...] management. Consider group exercises. Consider hiring a marine animal trainer. Regular exercise is castro to sustainable health [...] counseling and psychiatry and Dr Chambers at [facility]. We would like to cover regular topics [...] Dictation was accomplished with the use of [employer] voice recognition software, prone to medical misidentifications [...] Consider using apps like 7 minute excercise, [employer]pal, lose it, stick as needed for self-monitoring and weight management. Consider group exercises. Consider hiring a marine animal trainer. Regular exercise is castro to sustainable health [...] counseling and psychiatry and Dr Chambers at [facility]. We would like to cover regular topics [...] Dictation was accomplished with the use of [employer] voice recognition software, prone to medical misidentifications and grammatical errors. This is unintentional and the practitioner does try to identify and correct these, but some could still be present. Please do not hesitate to contact practitioner for clarification. All questions answered to patients satisfaction. Patient verbalized understanding of diagnosis and treatments explained. To call sooner prior to next visit it any questions/concerns arise. 07/17/2025 Encounter for examination of blood pressure without [...] or weight loss medications combined with Zepbound. 07/17/2025: Weight 162.8 pounds, BMI 28.3. On review of body composition scan, skeletal muscle mass decreased 3 pounds, fat mass decreased 1 pound. Continues off of medications pending response to PA appeal. Sample of Wegovy given in office today. Discussed protein, exercise, hydration goals. Follow-up in 4 weeks. #Obstructive sleep apnea: [...] Consider using apps like 7 minute excercise, Clerts!pal, lose it, stick as needed for self-monitoring and weight management. Consider group exercises. Consider hiring a marine animal trainer. Regular exercise is castro to sustainable health [...] counseling and psychiatry and Dr Chambers at [facility]. 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
--- OUTSIDE RECORDS SUMMARY | 2025-10-04 07:58 | XMS_ITS | Encounter Summary ---
Author Organization [facility] Prior to 08/12/[address] [place] [address] Care Team Providers Care Field Service Tech Name Role Phone Sharla Gaytan, Frances DO Primary Care Pro vider Unavailable Milton Hummel Primary Care Provider Unav ailRj Pyle MD Primary Care Provider Unava ilable Milton Hummel Primary Care Provider Unav ailable Sharla Westo, Frances DO Primary Care Pro vider Unavailable Rosalva Stephen MD Primary Care Provider [phone] Sharla Coltwylao, Frances DO Primary Care Pro vider Unavailable Rosalva Stephen MD Primary Care Provider [phone] Reason for Visit * Reason Onset Date Comments Medical Records 12/03/2018 RE: medical seda cl Encounter Details Date Type Department Care Team Description [facility]/03[facility]2018 [facility] [address] [id number] Na Reardon MD [address] [place] [address] Dr [place] [id number] Medical Records (RE: medical marijuana) Social History [...] Telephone Encounter - Na Reardon MD - 12/07/2018 8:57 AM EST FYI * Telephone Encounter - Susan Nielson M.A. - 12/03/2018 8:37 AM EST Patient dropped of a Temporary Program ID Card from the Cannabis Control Commission for the Medicaluse of Marijuana Program. Registration number [id number] Expiration 01/11/2019 PSI entered Copy of card to Dr Avila for review documented in this encounter Plan of Treatment Not on file documented as of this encounter Visit Diagnoses Not on filedocumented in this encounter Care Teams Field Service Tech Relationship Specialty Start Date End Date Frances Sung DO PCP - General Internal Medicine 07/12/18 02/24/19 Milton Hummel PCP - General Internal Medicine 02/25/19 06/26/19 Rj Lino MD PCP - General Internal Medicine 06/27/19 07/05/19 Milton Hummel PCP - General Internal Medicine 07/06/19 08/04/19 Frances Sung DO PCP - General Internal Medicine 08/05/19 03/05/21 Rosalva Stephen MD [address] [place] [id number] PCP - General Internal Medicine 03/06/21 03/11/21 Frances Sung DO PCP - General Internal Medicine 03/12/21 03/31/21 Rosalva Stephen MD [address] [place] [id number] PCP - General Internal Medicine 04/01/21 documented as of this encounter
--- OUTSIDE RECORDS SUMMARY | 2025-10-04 07:58 | XMS_ITS | Encounter Summary ---
Author Organization [facility] Prior to 08/12/[address] [place] [address] Care Team Providers Care Wood Heel Flap Trimmer Name Role Phone Sharla Gaytan, Frances DO Primary Care Pro vider Unavailable Milton Hummel Primary Care Provider Unav ailable Rj Lino MD Primary Care Provider Unava ilable Milton Hummel Primary Care Provider Unav ailable Sharla Westo, Frances DO Primary Care Pro vider Unavailable Rosalva Stephen MD Primary Care Provider [phone] Krakojob Coltwylao, Frances DO Primary Care Pro vider Unavailable Rosalva Stephen MD Primary Care Provider [phone] Encounter Details Date Type Department Care Team Description 01/14/2019 Pt. Non Urgent Medical Question Physiatry - [address] [address] Na Reardon MD [address] [place] [address] Dr ARTI [place] [id number] Social History Tobacco Use Types Packs/Day Years [...] Progress Notes * Alyssa Lyon L.P.N. - 01/14/2019 10:54 AM EDTFrom: Deb Malcolm To: Na Reardon MD Sent: 01/14/2019 10:51 AM EDT Subject: neurologist I have an appt with the neurologist this month. I am feeling like I did before my first spinal ACD&F, like my head is too heavy for my neck so when I'm sitting or standing, it hurts all the time but when I lay down, it only hurts if I don't adjust the pillows just right. If the pillows aren't just right, it hurts constantly. This is how I felt before the first ACD&F. The neurosurgeon I recently met with also said I have 1 or 2 bulging disks in my thoracic area. I feel like the janki & the pea with my pain, is this due to the fibromyalgia? I will let the neurologist know about all of these symptoms during my appointment but should I also let the beater and pulper feeder know as well? Orall of these notes shared? I've also been writing notes on the medical marijuana if you'd like me to share those with you. Forexample, I've noticed that the marijuana works similarly to Stadol, the pain is still there, somewhat duller (depending on my pain number scale), but I can handle it somewhat better because it has that Stadol out of it affect & it gives me time for my medication to work and because it dulls it slightly, it lowers my pain number and the pain medication works better because it starts to work while my pain is at a slightly lower pain scale than I started with. Those are with the indica strain. There's more but too long to write here. documented in this encounter Plan of Treatment Not on file documented as of this encounter Visit Diagnoses Not on filedocumented in this encounter Care Teams Wood Heel Flap Trimmer Relationship Specialty Start Date End Date Frances Sung DO PCP - General Internal Medicine 07/12/18 02/24/19 Milton Hummel PCP - General Internal Medicine 02/25/19 06/26/19 Rj Lino MD PCP - General Internal Medicine 06/27/19 07/05/19 Milton Hummel PCP - General Internal Medicine 07/06/19 08/04/19 Frances Sung DO PCP - General Internal Medicine 08/05/19 03/05/21 Rosalva Stephen MD [address] [place] [address] [id number] PCP - General Internal Medicine 03/06/21 03/11/21 Frances Sung DO PCP - General Internal Medicine 03/12/21 03/31/21 Rosalva Stephen MD [address] [place] [address] [id number] PCP - General Internal Medicine 04/01/21 documented as of this encounter
--- OUTSIDE RECORDS SUMMARY | 2025-10-04 07:58 | XMS_ITS | Encounter Summary ---
Author Organization [facility] Prior to 08/12/[address] [place] [address] Care Team Providers Care Aerial Photographer Name Role Phone [place] Colasacco, Frances DO [...] Unavailable Rosalva Stephen MD Primary Care Provider [phone] [place] Colasacco, Frances DO Primary Care Pro vider Unavailable Rosalva Stephen MD Primary Care Provider [phone] Encounter Details Date Type Department Care Team Description 01/19/2017 [facility] Medical Records [address] [place] [address] Abstract, Provider Social History Tobacco Use Types [...] on filedocumented in this encounter Care Teams Aerial Photographer Relationship Specialty Start Date End Date Frances [...] Medicine 08/05/19 03/05/21 Rosalva Stephen MD [address] [place] [address] [id number] PCP - General Internal Medicine 03/06/21 03/11/21 Frances Sung, PCP - General Internal Medicine 03/12/21 03/31/21 Rosalva Stephen MD [address] [place] [address] [id number] PCP - General Internal Medicine 04/01/21 documented as of this encounter
--- OUTSIDE RECORDS SUMMARY | 2025-10-04 07:58 | XMS_ITS | Encounter Summary ---
Author Organization [facility] Prior to 08/12/[address] [place] [address] Care Team Providers Care Textile Machine Maintenance Mechanic Name Role Phone [place] Colpriyankacco, Frances DO [...] Unavailable Rosalva Stephen MD Primary Care Provider [phone] [place] Colasacco, Frances DO Primary Care Pro vider Unavailable Rosalva Stephen MD Primary Care Provider [phone] Reason for Visit * Reason Onset Date Comments Medication Review 02/05/2017 Encounter Details Date Type Department Care Team Description 02/05/2017 Telephone Adult [address] [address] Sharla ColtwylaoFrances DO Medication Review Social History Tobacco Use Types [...] TUNG SELF FUNDED / Plan: EPO $20 [place]ET[place] SELF / Product Type: EPO documented in this encounter Plan of Treatment Not on file documented as of this encounter Visit Diagnoses Not on filedocumented in this encounter Care Teams Textile Machine Maintenance Mechanic Relationship Specialty Start Date End Date [...] Medicine 08/05/19 03/05/21 Rosalva Stephen MD [address] [place] [id number] PCP - General Internal Medicine 03/06/21 03/11/21 Frances Sung DO PCP - General Internal Medicine 03/12/21 03/31/21 Rosalva Stephen MD [address] [place] [id number] PCP - General Internal Medicine 04/01/21 documented as of this encounter
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
--- OUTSIDE RECORDS SUMMARY | 2025-10-04 07:58 | XMS_ITS | Encounter Summary ---
Author Organization [facility] Prior to 08/12/[address] [place] [address] Care Team Providers Care Research Program Internship Name Role Phone Hector Morris MD Primary Care Provider Unavail able [facility], Pcp Primary Care Provider Unavailabl e [place] [...] Unavailable Rosalva Stephen MD Primary Care Provider [phone] [place] Colasacco, Frances DO Primary Care Pro vider Unavailable Rosalva Stephen MD Primary Care Provider [phone] Encounter Details Date Type Department Care Team Description 04/18/2014 Release of Information Medical Records [address] [place] [address] Abstract, Provider Social History Tobacco Use Types [...] filedocumented in this encounter Care Teams Research Program Internship Relationship Specialty Start Date End Date Hector Morris MD PCP - General Internal Medicine 10/18/13 01/31/16 [facility], [facility] PCP - General Internal Medicine 02/01/16 [...] Medicine 08/05/19 03/05/21 Rosalva Stephen MD [address] [place] [address] PCP - General Internal Medicine 03/06/21 03/11/21 Frances Sung, PCP - General Internal Medicine 03/12/21 03/31/21 Rosalva Stephen MD [address] [place] [address] PCP - General Internal Medicine 04/01/21 documented as of this encounter
--- OUTSIDE RECORDS SUMMARY | 2025-10-04 07:58 | XMS_ITS | Encounter Summary ---
Author Organization [facility] Prior to 08/12/[address] [place] [address] 20283 Care Team Providers Care Plant Machinist Name Role Phone [place] Colasacco, Frances DO Primary Care Pro vider Unavailable Doug Cosby MD Primary Care Provider Unavail able [place] Colasacco, Frances DO Primary Care Pro vider Unavailable Milton Hummel Primary Care Provider Unav ailable jR Lino MD Primary Care Provider Unava ilable Milton Hummel Primary Care Provider Unav ailable [place] Colasacco, Frances DO Primary Care Pro vider Unavailable Rosalva Stephen MD Primary Care Provider [phone] [place] Colasacco, Frances DO Primary Care Pro vider Unavailable Rosalva Stephen MD Primary Care Provider [phone] Reason for Visit * Reason Onset Date Comments Urine Drug Screen 02/05/2017 [facility] Pill Count 02/19/2017 Encounter Details Date Type Department Care Team Description 02/05/2017 Telephone Physiatry - [address] [phone] Na Reardon MD [address] [place] [address] [place] [address] Urine Drug Screen; CSC Pill Count Social History Tobacco Use [...] Telephone Encounter - Na Reardon MD - 02/19/2017 11:53 AM EDT Noted. That's ok. Will see about decreasing back to BID next perscription. * Telephone Encounter - Elizabeth Cheng M.A. - 02/19/2017 11:48 AM EDT Patient presents for a CSC pill count. Last RX for Oxycodone 5/325 filled on 02/06/17 (Confirmed with Pharmacy) Quantity 84 Si Tab PO every 8 hours as needed Expected remaining tablets: 42 Actual Pill Count number: 59 Provider notified of result: YES Appearance of medication tablet verified in Epocrates/PDR or patients pharmacy: Yes Pill count performed by Elizabeth Cheng. Witnessed by: Susan Nielson MA Electronically signed by: Elizabeth Cheng 02/19/2017 11:40 AM Patient is going for UDS * Telephone Encounter - Na Reardon MD - 02/18/2017 1:01 PM EDT Done thanks * Telephone Encounter - Elizabeth Cheng M.A. - 02/18/2017 12:56 PM EDT Correction- patient will be in tomorrow 02/19/17 * Telephone Encounter - Elizabeth Cheng M.A. - 02/18/2017 12:45 PM EDT Patient returned my call, She will be in tomorrow 02/18/17 for a UDS and pill count. Please place order for UDS, thank you * Telephone Encounter - Elizabeth Cheng M.A. - 02/18/2017 11:59 AM EDT 2nd attempt to call patient, no answer so I left her a message to call me back at [phone] When patient calls please DO NOT take a message, transfer her to the physiatry dept, my ext is [phone] * Telephone Encounter - Elizabeth Cheng M.A. - 02/18/2017 9:35 AM EDT Called patient at listed phone number, No answer, left a message to call Dept back at [phone] * Telephone Encounter - Alyssa Lyon L.P.NWild - 02/09/2017 11:27 AM EDT Will need to be called On February 18 to come in for February 19 * Telephone Encounter - Na Reardon MD - 02/05/2017 2:08 PM EDT Please call patienet for UDS and pill count 2 weeks from today. Thanks. documented in this encounter Plan of Treatment Scheduled Orders Name Type Priority Associated Diagnoses Orde r Schedule [facility] DRUG SCREENING CANNABINOIDS NATURAL Lab Routine Encounter for long-term (current) use of other medications Expected: 02/18/2017, Expires: 02/18/2018 [facility] DRUG SCREENING COCAINE Lab Routine Encounter for long-term (current) use of other medications Expected: 02/18/2017, Expires: 02/18/2018 [facility] DRUG SCREENING OPIATES 1 OR MORE Lab Routine Encounter for long-term (current) use of other medications Expected: 02/18/2017, Expires: 02/18/2018 [facility] DRUG SCREENING OXYCODONE Lab Routine Encounter for long-term (current) use of other medications Expected: 02/18/2017, Expires: 02/18/2018 [facility] DRUG SCREEN QUANT AMPHETAMINES 3 OR 4 Lab Routine Encounter for long-term (current) use of other medications Expected: 02/18/2017, Expires: 02/18/2018 [facility] DRUG/SUBSTANCE DEFINITIVE QUAL/QUANT NOS 1-3 Lab Routine Encounter for long-term (current) use of other medications Expected: 02/18/2017, Expires: 02/18/2018 [facility] DRUG SCREENING BENZODIAZEPINES 1-12 Lab Routine Encounter for long-term (current) use of other medications Expected: 02/18/2017, Expires: 02/18/2018 documented as of this encounter Procedures Procedure Name Priority Date/Time Associated Diagnosis Comments PILL COUNT-NO CHARGE Routine 02/19/2017 11:48 AM EDT Medication monitoring encounter documented in this encounter Results * ASSAY, DIHYDROCODEINONE (02/19/2017 11:51 AM EDT) HYDROCODONE UR GCMS Negative . ng/mL 02/25 8:38 AM EDT [facility] [employer] HYDROMORPHONE UR GCMS Negative . ng/mL 02/25/2017 8:38 AM EDT [facility] [employer] Comment: This test was developed and its performance characteristics determined by [facility]. It has not been cleared or approved by the Food and Drug Administration. Performed at: [facility] [address] [id number] Fire Control Technician: Hector Mckenna MD, Phone: [phone] 02/19/2017 11:5 1 AM EDT 02/19/2017 11:51 AM EDT Na Reardon [facility] * (ABNORMAL) OXYCODONE, URINE (02/19/2017 11:51 AM EDT) URINE OXYCODONE LEVEL POSITIVE( A) NEGATIVE 02/19/2017 7:04 PM EDT [facility] Comment: Semi-quantitative urine assay for screening purposes only. Unconfirmed screening results should not be used for non-medical purposes. ALTERNATE METHOD CONFIRMATION DONE UPON REQUEST ONLY 02/19/2017 11:5 1 AM EDT 02/19/2017 11:51 AM EDT Na Reardon MD LAB Performing Organization Address [facility] Co de Phone Number [address] * (ABNORMAL) DRUG OF ABUSE SCREEN (02/19/2017 11:51 AM EDT) AMPHETAMINE, URINE NEGATIVE NEGATIVE 02/19/2017 5:28 PM EDT [facility] BARBITURATES, URINE NEGATIVE NEGATIVE 02/19/2017 5:28 PM T [facility] BENZODIAZEPINE, URINE POSITIVE(A) NEGATIVE 02/19/2017 7:04 PM [facility] Comment: RECHECKED Semi-quantitative urine assay for screening purposes only. Unconfirmed screening results should not be used for non-medical purposes. ALTERNATE METHOD CONFIRMATION DONE UPON REQUEST ONLY COCAINE, URINE NEGATIVE NEGATIVE 02/19/2017 5:28 PM EDT [facility] OPIATES, URINE NEGATIVE NEGATIVE 02/19/2017 5:28 PM T [facility] MARIJUANA(THC), URINE NEGATIVE NEGATIVE 02/19/2017 5:28 PM [facility] 02/19/2017 11:5 1 AM EDT 02/19/2017 11:51 AM EDT Na Reardon MD LAB Performing Organization Address [facility] Co de Phone Number [address] documented in this encounter Visit Diagnoses Diagnosis Encounter for long-term (current) use of other medications- Primary Medication monitoring encounter Encounter for therapeutic drug monitoring documented in this encounter Care Teams Plant Machinist Relationship Specialty Start Date End Date Frances [...] Medicine 08/05/19 03/05/21 Rosalva Stephen MD [address] [place] [address] PCP - General Internal Medicine 03/06/21 03/11/21 Frances Sung, PCP - General Internal Medicine 03/12/21 03/31/21 Rosalva Stephen MD [address] [place] [id number] PCP - General Internal Medicine 04/01/21 documented as of this encounter
--- OUTSIDE RECORDS SUMMARY | 2025-10-04 07:58 | XMS_ITS | Encounter Summary ---
Author Organization [facility] Prior to 08/12/[address] [place] [address] Care Team Providers Care Collateral Clerk Name Role Phone [place] Colasacco, Frances DO Primary Care Pro vider Unavailable Doug Cosby MD Primary Care Provider Unavail able [place] Colasacco, Frnaces DO Primary Care Pro vider Unavailable Milton Hummel Primary Care Provider Unav ailable Rj Lino MD Primary Care Provider Unava ilable Milton Hummel Primary Care Provider Unav ailable [place] Colasacco, Frances DO Primary Care Pro vider Unavailable Rosalva Stephen MD Primary Care Provider [phone] [place] Colasacco, Frances DO Primary Care Pro vider Unavailable Rosalva Stephen MD Primary Care Provider [phone] Encounter Details Date Type Department Care Team Description 10/20/2016 Information Services Manager Report Medical Records [address] [place] [address] Rehab., Can Social History Tobacco Use Types [...] on filedocumented in this encounter Care Teams Collateral Clerk Relationship Specialty Start Date End Date [...] Medicine 08/05/19 03/05/21 Rosalva Stephen MD [address] [place] [address] [id number] PCP - General Internal Medicine 03/06/21 03/11/21 Frances Sung DO PCP - General Internal Medicine 03/12/21 03/31/21 Rosalva Stephen MD [address] [place] [address] [id number] PCP - General Internal Medicine 04/01/21 documented as of this encounter
--- OUTSIDE RECORDS SUMMARY | 2025-10-04 07:58 | XMS_ITS | Encounter Summary ---
Author Organization [facility] Prior to 08/12/[address] [place] [address] Care Team Providers Care Financial Center Manager Name Role Phone Hector Morris MD Primary Care Provider Unavail able [facility], [facility]cp Primary Care Provider Unavailabl e [place] [...] Unavailable Rosalva Stephen MD Primary Care Provider [phone] Encounter Details Date Type Department Care Team Description 06/30/2014 Floor Associate Report Medical Records [address] [place] [address] Henry Lemos MD Social History Tobacco Use [...] on filedocumented in this encounter Care Teams Financial Center Manager Relationship Specialty Start Date End Date Hector Morris MD PCP - General Internal Medicine 10/18/13 01/31/16 [facility] PCP - General Internal Medicine 02/01/16 [...] Internal Medicine 08/05/19 03/05/21 Rosalva Stephen MD [address] [place] [address] PCP - General Internal Medicine 03/06/21 03/11/21 Frances Sung DO PCP - General Internal Medicine 03/12/21 03/31/21 Rosalva Stephen MD [address] [place] [address] 85651 PCP - General Internal Medicine 04/01/21 documented as of this encounter
--- OUTSIDE RECORDS SUMMARY | 2025-10-04 07:58 | XMS_ITS | Encounter Summary ---
Author Organization [facility] Prior to 08/12/[address] [place] [address] Care Team Providers Care Shellfish Shucker Name Role Phone Rosalva Stephen MD Primary Care Provider [phone] Encounter Details Date Type Department Care Team Description 03/26/2023 Oil Pump Station Operator Chief Report Medical Records [address] [place] [address] Sixto Olmedo DO Social History Tobacco Use [...] on filedocumented in this encounter Care Teams Shellfish Shucker Relationship Specialty Start Date End Date Rosalva Stephen MD [address] [place], [place] [phone] PCP - General Internal Medicine 04/01/21 documented as of this encounter
--- OUTSIDE RECORDS SUMMARY | 2025-10-04 07:58 | XMS_ITS | Encounter Summary ---
Author Organization [facility] Prior to 08/12/[address] [place] [address]797 Care Team Providers Care Device Test Engineer Name Role Phone [place] Colasacco, Frances [...] Unavailable Rosalva Stephen MD Primary Care Provider [phone] [place] Colasacco, Frances DO Primary Care Pro vider Unavailable Rosalva Stephen MD Primary Care Provider [phone] Encounter Details Date Type Department Care Team Description 09/30/2016 Pt. Non Urgent Medical Question Physiatry - [facility] [address] [place] [address] Na Reardon MD [address] [place] [address] Dr [place], [place] [id number] Social History Tobacco Use Types Packs/Day Years [...] Progress Notes * Susan Nielson M.A. - 10/01/2016 8:50 AM ESTFrom: Deb Malcolm To: Na Reardon MD Sent: 09/30/2016 7:29 PM EST Subject: shoulder MRI I had my MRI done at [facility]. Can you please also look at the actual imaging? Is the bubble looking thing the fluid from the injection? I'm still having pain that worsens when I lift anything so I've been limiting lifting but not 100% possible since I'm a single mom to a 1 yr that's almost 30 lbs. It has been much better after the Percocet. I think I had a bad reaction or steroid flare because the pain right after was truly horrible. But the pain is still pretty bad not horrible but bad. Basically I'm still needing the Percocet but I'm no longer in tears and needing someone else to care formy son like I did for 3 days after the injection. Please let me know what the next step is based onthe MRI. Thank you. documented in this encounter Plan of Treatment Not on file documented as of this encounter Visit Diagnoses Not on filedocumented in this encounter Care Teams Device Test Engineer Relationship Specialty Start Date End [...] Medicine 08/05/19 03/05/21 Rosalva Stephen MD [address] [place] [address] [place] [address] PCP - General Internal Medicine 03/06/21 03/11/21 Frances Sung DO PCP - General Internal Medicine 03/12/21 03/31/21 Rosalva Stephen MD [address] [place] [address] PCP - General Internal Medicine 04/01/21 documented as of this encounter
--- OUTSIDE RECORDS SUMMARY | 2025-10-04 07:58 | XMS_ITS | Encounter Summary ---
Author Organization [facility] Prior to 08/12/[address] [place] [address] Care Team Providers Care Artist Agent Name Role Phone Sharla Gaytan, Frances DO Primary Care Pro vider Unavailable Milton Hummel Primary Care Provider Unav ailable Rj Lino MD Primary Care Provider Unava ilable Milton Hummel Primary Care Provider Unav ailable Sharla Westo, Frances DO Primary Care Pro vider Unavailable Rosalva Stephen MD Primary Care Provider [phone] Sharla Westo, Frances DO Primary Care Pro vider Unavailable Rosalva Stephen MD Primary Care Provider [phone] Encounter Details Date Type Department Care Team Description 01/28/2019 Orders Only Physiatry - [address] [address] Na Reardon MD [address] [place] [address] Dr [place] [id number] Chronic left shoulder pain; History of cervical spinal surgery; Chronic pain of right knee Social History Tobacco Use Types Packs/Day Years [...] knee documented in this encounter Care Teams Artist Agent Relationship Specialty Start Date End Date Frances Sung DO PCP - General Internal Medicine 07/12/18 02/24/19 Milton Hummel PCP - General Internal Medicine 02/25/19 06/26/19 Rj Lino MD PCP - General Internal Medicine 06/27/19 07/05/19 Milton Hummel PCP - General Internal Medicine 07/06/19 08/04/19 Frances Sung DO PCP - General Internal Medicine 08/05/19 03/05/21 Rosalva Stephen MD [address] [place] [address] [phone] PCP - General Internal Medicine 03/06/21 03/11/21 Frances Sung DO PCP - General Internal Medicine 03/12/21 03/31/21 Rosalva Stephen MD [address] [place] [address] [id number] PCP - General Internal Medicine 04/01/21 documented as of this encounter
--- OUTSIDE RECORDS SUMMARY | 2025-10-04 07:58 | XMS_ITS | Encounter Summary ---
Author Organization [facility] Prior to 08/12/[address] [place] [address] Care Team Providers Care Film Processing Supervisor Name Role Phone [place] Colasacco, Frances DO [...] Unavailable Rosalva Stephen MD Primary Care Provider [phone] [place] Colasacco, Frances DO Primary Care Pro vider Unavailable Rosalva Stephen MD Primary Care Provider [phone] Encounter Details Date Type Department Care Team Description 10/07/2017 [facility] Controlled Substance Contract Medical Records [address] [place] [address] Abstract, Provider Social History Tobacco Use Types [...] on filedocumented in this encounter Care Teams Film Processing Supervisor Relationship Specialty Start Date End Date [...] Medicine 08/05/19 03/05/21 Rosalva Stephen MD [address] [place] [address] [id number] PCP - General Internal Medicine 03/06/21 03/11/21 Frances Sung DO PCP - General Internal Medicine 03/12/21 03/31/21 Rosalva Stephen MD [address] [place] [address] [id number] PCP - General Internal Medicine 04/01/21 documented as of this encounter
--- OUTSIDE RECORDS SUMMARY | 2025-10-04 07:58 | XMS_ITS | Encounter Summary ---
Author Organization [facility] Prior to 08/12/[address] [place] [address] Care Team Providers Care Hand Assembler Name Role Phone Rosalva Stephen MD Primary Care Provider [phone] Encounter Details Date Type Department Care Team Description 04/29/2023 Blasting Entry Specialist Report Medical Records [address] [place] [address] Sixto Olmedo DO Social History Tobacco Use [...] on filedocumented in this encounter Care Teams Hand Assembler Relationship Specialty Start Date End Date Rosalva Stephen MD [address] [place], [place] [phone] PCP - General Internal Medicine 04/01/21 documented as of this encounter
--- OUTSIDE RECORDS SUMMARY | 2025-10-04 07:58 | XMS_ITS | Encounter Summary ---
Author Organization [facility] Prior to 08/12/[address] [place] [address] Care Team Providers Care Hand Paint Mixer Name Role Phone [place] Colasacco, Frances DO [...] Unavailable Rosalva Stephen MD Primary Care Provider [phone] [place] Colasacco, Frances DO Primary Care Pro vider Unavailable Rosalva Stephen MD Primary Care Provider [phone] Encounter Details Date Type Department Care Team Description 03/01/2018 Sink Cutter Report Medical Records [address] [place] [address] Joseluis Henson MD Social History Tobacco Use [...] filedocumented in this encounter Care Teams Hand Paint Mixer Relationship Specialty Start Date End Date Frances Sung DO PCP - General Internal Medicine 02/12/16 04/28/18 Doug Cosby MD PCP - General Internal Medicine 04/29/18 07/11/18 Frances Sung DO PCP - General Internal Medicine 07/12/18 02/24/19 Mitlon Hummel PCP - General Internal Medicine 02/25/19 06/26/19 Rj Lino MD PCP - General Internal Medicine 06/27/19 07/05/19 Milton Hummel PCP - General Internal Medicine 07/06/19 08/04/19 Frances Sung DO PCP - General Internal Medicine 08/05/19 03/05/21 Rosalva Stephen MD [address] [place] [address] [phone] PCP - General Internal Medicine 03/06/21 03/11/21 Frances Sung DO PCP - General Internal Medicine 03/12/21 03/31/21 Rosalva Stephen MD [address] [place] [address] [id number] PCP - General Internal Medicine 04/01/21 documented as of this encounter
--- OUTSIDE RECORDS SUMMARY | 2025-10-04 07:58 | XMS_ITS | Encounter Summary ---
Author Organization [facility] Prior to 08/12/[address] [place] [address] Care Team Providers Care Environmental Laboratory Technician Name Role Phone [place] Colasacco, Frances DO [...] Unavailable Rosalva Stephen MD Primary Care Provider [phone] [place] Colasacco, Frances DO Primary Care Pro vider Unavailable Rosalva Stephen MD Primary Care Provider [phone] Encounter Details Date Type Department Care Team Description 10/07/2016 [facility] Medical Records [address] [place] [address] Abstract, Provider Social History Tobacco Use Types [...] on filedocumented in this encounter Care Teams Environmental Laboratory Technician Relationship Specialty Start Date End [...] Medicine 08/05/19 03/05/21 Rosalva Stephen MD [address] [place] [address] [id number] PCP - General Internal Medicine 03/06/21 03/11/21 Frances Sung, PCP - General Internal Medicine 03/12/21 03/31/21 Rosalva Stephen MD [address] [place] [address] [id number] PCP - General Internal Medicine 04/01/21 documented as of this encounter
--- OUTSIDE RECORDS SUMMARY | 2025-10-04 07:58 | XMS_ITS | Encounter Summary ---
Author Organization [facility] Prior to 08/12/[address] [place] [address] Care Team Providers Care Torch Heater Name Role Phone [place] Colasacco, Frances DO [...] Unavailable Rosalva Stephen MD Primary Care Provider [phone] [place] Colasacco, Frances DO Primary Care Pro vider Unavailable Rosalva Stephen MD Primary Care Provider [phone] Encounter Details Date Type Department Care Team Description 06/03/2017 [facility] Medical Records [address] [place] [address] Abstract, Provider Social History Tobacco Use Types [...] on filedocumented in this encounter Care Teams Torch Heater Relationship Specialty Start Date End Date Frances [...] Medicine 08/05/19 03/05/21 Rosalva Stephen MD [address] [place] [address] [id number] PCP - General Internal Medicine 03/06/21 03/11/21 Frances Sung, PCP - General Internal Medicine 03/12/21 03/31/21 Rosalva Stephen MD [address] [place] [address] [id number] PCP - General Internal Medicine 04/01/21 documented as of this encounter
--- OUTSIDE RECORDS SUMMARY | 2025-10-04 07:58 | XMS_ITS | Encounter Summary ---
Author Organization [facility] Prior to 08/12/[address] [place] [address] Care Team Providers Care Bailer Operators Supervisor Name Role Phone [place] Colasacco, Frances [...] Unavailable Rosalva Stephen MD Primary Care Provider [phone] [place] Colasacco, Frances DO Primary Care Pro vider Unavailable oRsalva Stephen MD Primary Care Provider [phone] Encounter Details Date Type Department Care Team Description 02/18/2018 Dairy Supplies Sales Representative Report Medical Records [address] [place] [address] Kunal Villegas Social History Tobacco Use Types [...] on filedocumented in this encounter Care Teams Bailer Operators Supervisor Relationship Specialty Start Date End Date [...] Medicine 08/05/19 03/05/21 Rosalva Stephen MD [address] [place] [address] [id number] PCP - General Internal Medicine 03/06/21 03/11/21 Frances Sung DO PCP - General Internal Medicine 03/12/21 03/31/21 Rosalva Stephen MD [address] [place] [address] [id number] PCP - General Internal Medicine 04/01/21 documented as of this encounter
--- OUTSIDE RECORDS SUMMARY | 2025-10-04 07:58 | XMS_ITS | Encounter Summary ---
Author Organization [facility] Prior to 08/12/[address] [place] [address] Care Team Providers Care Bank Reconciliator Name Role Phone [place] Colasacco, Frances DO [...] Unavailable Rosalva Stephen MD Primary Care Provider [phone] [place] Colasacco, Frances DO Primary Care Pro vider Unavailable Rosalva Stephen MD Primary Care Provider [phone] Encounter Details Date Type Department Care Team Description 11/10/2016 Release of Information Medical Records [address] [place] [id number] Abstract, Provider Social History Tobacco Use Types [...] on filedocumented in this encounter Care Teams Bank Reconciliator Relationship Specialty Start Date End Date Frances [...] Medicine 08/05/19 03/05/21 Rosalva Stephen MD [address] [place] [address] [id number] PCP - General Internal Medicine 03/06/21 03/11/21 Frances Sung, PCP - General Internal Medicine 03/12/21 03/31/21 Rosalva Stephen MD [address] [place] [address] [id number] PCP - General Internal Medicine 04/01/21 documented as of this encounter
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
--- OUTSIDE RECORDS SUMMARY | 2025-10-04 07:58 | XMS_ITS | Encounter Summary ---
Author Organization [facility] Prior to 08/12/[address] [place] [address] Care Team Providers Care Membership Counselor Name Role Phone [place] Colasacco, Frances [...] Unavailable Rosalva Stephen MD Primary Care Provider [phone] [place] Colasacco, Frances DO Primary Care Pro vider Unavailable Rosalva Stephen MD Primary Care Provider [phone] Encounter Details Date Type Department Care Team Description 11/06/2016 Controlled Substance Plan Medical Records [address] [place] [id number] Abstract, Provider Social History Tobacco Use Types [...] on filedocumented in this encounter Care Teams Membership Counselor Relationship Specialty Start Date End Date [...] Medicine 08/05/19 03/05/21 Rosalva Stephen MD [address] [place] [address] [id number] PCP - General Internal Medicine 03/06/21 03/11/21 Frances Sung, PCP - General Internal Medicine 03/12/21 03/31/21 Rosalva Stephen MD [address] [place] [address] [id number] PCP - General Internal Medicine 04/01/21 documented as of this encounter
--- OUTSIDE RECORDS SUMMARY | 2025-10-04 07:58 | XMS_ITS | Encounter Summary ---
Author Organization [facility] Prior to 08/12/[address] [place] [address] Care Team Providers Care Job Checker Name Role Phone Frances Sung DO Primary Care Pro vider Unavailable Rosalva Stephen MD Primary Care Provider [phone] Frances Sung DO Primary Care Pro vider Unavailable Rosalva Stephen MD Primary Care Provider [phone] Encounter Details Date Type Department Care Team Description 12/07/2019 Refill Physiatry - [address] [address] Na Reardon MD [address] [place] [address] Dr [facility]I [place] [id number] Social History Tobacco Use Types Packs/Day Years [...] knee documented in this encounter Care Teams Job Checker Relationship Specialty Start Date End Date Frances Sung DO PCP - General Internal Medicine 08/05/19 03/05/21 Rosalva Stephen MD [address] [place] [id number] PCP - General Internal Medicine 03/06/21 03/11/21 Frances Sung DO PCP - General Internal Medicine 03/12/21 03/31/21 Rosalva Stephen MD [address] [place] [id number] PCP - General Internal Medicine 04/01/21 documented as of this encounter
--- OUTSIDE RECORDS SUMMARY | 2025-10-04 07:58 | XMS_ITS | Encounter Summary ---
Author Organization [facility] Prior to 08/12/[address] [place] [address] Care Team Providers Care Hot Tar Roofer Helper Name Role Phone [place] Colasacco, Frances [...] Unavailable Rosalva Stephen MD Primary Care Provider [phone] [place] Colasacco, Frances DO Primary Care Pro vider Unavailable Rosalva Stephen MD Primary Care Provider [phone] Encounter Details Date Type Department Care Team Description 03/19/2016 Occupational Therapy Aides Teacher Report Medical Records [address] [place] [address] Jason Dillon I., PH.D Social History Tobacco [...] on filedocumented in this encounter Care Teams Hot Tar Roofer Helper Relationship Specialty Start Date End Date [...] Medicine 08/05/19 03/05/21 Rosalva Stephen MD [address] [place] [address] [phone] PCP - General Internal Medicine 03/06/21 03/11/21 Frances Sung DO PCP - General Internal Medicine 03/12/21 03/31/21 Rosalva Stephen MD [address] [place] [address] [id number] PCP - General Internal Medicine 04/01/21 documented as of this encounter
--- OUTSIDE RECORDS SUMMARY | 2025-10-04 07:59 | XMS_ITS | Encounter Summary ---
Author Organization [facility] Prior to 08/12/2024 Address [address] [place] [address] Care Team Providers Care Digital Sales Director Name Role Phone Hector Morris MD Primary Care Provider Unavail able [facility], [facility] Primary Care Provider Unavailabl e [...] Unavailable Rosalva Stephen MD Primary Care Provider [phone] [place] Colasacco, Frances DO Primary Care Pro vider Unavailable Rosalva Stephen MD Primary Care Provider [phone] Encounter Details Date Type Department Care Team Description 10/04/2014 Hospital Medical Records [address] [place] [address] Jorge Collazo PA-C [address] [place] [address] [address] [place] [address] Social History Tobacco Use Types Packs/Day Years [...] on filedocumented in this encounter Care Teams Digital Sales Director Relationship Specialty Start Date End Date Hector Morris MD PCP - General Internal Medicine 10/18/13 01/31/16 [facility], Pcp PCP - General Internal Medicine [...] Medicine 08/05/19 03/05/21 Rosalva Stephen MD [address] [place] [id number] PCP - General Internal Medicine 03/06/21 03/11/21 Frances Sung, DO PCP - General Internal Medicine 03/12/21 03/31/21 Rosalva Stephen MD [address] [place] [address] [phone] PCP - General Internal Medicine 04/01/21 documented as of this encounter
--- OUTSIDE RECORDS SUMMARY | 2025-10-04 07:59 | XMS_ITS | Encounter Summary ---
Author Organization [facility] Prior to 08/12/[address] [place] [address] Care Team Providers Care Plunger Machine Operator Name Role Phone Hector Morris MD Primary Care Provider Unavail able [facility], Pcp Primary Care Provider Unavailabl e [place] [...] Unavailable Rosalva Stephen MD Primary Care Provider [phone] [place] Colasacco, Frances DO Primary Care Pro vider Unavailable Rosalva Stephen MD Primary Care Provider [phone] Encounter Details Date Type Department Care Team Description 08/31/2014 Manager Cable Report Medical Records [address] [place] [address] Luis Pickens MD Social History Tobacco Use [...] Operator Relationship Specialty Start Date End Date Hector Morris MD PCP - General Internal Medicine 10/18/13 01/31/16 [facility], [facility] PCP - General Internal Medicine 02/01/16 [...] Medicine 08/05/19 03/05/21 Rosalva Stephen MD [address] [place] [id number] PCP - General Internal Medicine 03/06/21 03/11/21 Frances Sung, PCP - General Internal Medicine 03/12/21 03/31/21 Rosalva Stephen MD [address] [place] [id number] PCP - General Internal Medicine 04/01/21 documented as of this encounter
--- OUTSIDE RECORDS SUMMARY | 2025-10-04 07:59 | XMS_ITS | Encounter Summary ---
Author Organization [facility] Prior to 08/12/[address] [place] [address] Care Team Providers Care Territory Supervisor Name Role Phone Hector Morris MD Primary Care Provider Unavail able [facility], Pcp Primary Care Provider Unavailabl e [place] [...] Unavailable Rosalva Stephen MD Primary Care Provider [phone] [place] Colasacco, Frances DO Primary Care Pro vider Unavailable Rosalva Stephen MD Primary Care Provider [phone] Encounter Details Date Type Department Care Team Description 09/11/2014 Senior Web Engineer Report Medical Records [address] [place] [address] Luis Pickens MD Social History Tobacco Use [...] on filedocumented in this encounter Care Teams Territory Supervisor Relationship Specialty Start Date End Date Hector Morris MD PCP - General Internal Medicine 10/18/13 01/31/16 [facility], [facility] PCP - General Internal Medicine 02/01/16 [...] Medicine 08/05/19 03/05/21 Rosalva Stephen MD [address] [place] [address] PCP - General Internal Medicine 03/06/21 03/11/21 Frances Sung, PCP - General Internal Medicine 03/12/21 03/31/21 Rosalva Stephen MD [address] [place] [id number] PCP - General Internal Medicine 04/01/21 documented as of this encounter
[2025-10-04 08:01] VITALS: BP 115/56; PULSE 52; BMI 26.6
== END 2025-10-04 13:43 | disposition home or self-care (01) ==
PROVIDERS: PCP Physician Assistant; Visit Provider Nurse Practitioner Family
DX: R10.13 Epigastric pain (principal); R19.8 Other specified symptoms and signs involving the digestive system and abdomen; K92.1 Melena
CPT/HCPCS: 99214

== ENCOUNTER 2025-10-04 15:37 | Outpatient (REF) | payer OTHER, SELFPAY | END 2025-10-04 15:38 | disposition home or self-care (01) | LOC: HO.LNP 15:37 | PROVIDERS: Visit Provider Nurse Practitioner Family | DX: R14.0 Abdominal distension (gaseous) (principal) | CPT/HCPCS: 83013 ==

== ENCOUNTER 2025-10-10 08:55 | Outpatient (AMB) | payer OTHER, SELFPAY ==
--- OUTSIDE RECORDS SUMMARY | 2025-09-25 08:30 | XMS_ITS ---
Author Organization [facility] [address] Address [address] [place] [address] Care Team Providers Care Asset Recovery Specialist Name Role Phone Betito Rico Primary Care Provider Unavailab Jacquie Card Unavailable [phone] Encounters Encounter Location Date Provider Diagnosis [facility] [address] [place] [address] 09/25/2025 Jacquie Jean Plan Of Treatment No Information Progress Notes * SIGIFREDO BEARDINEDOB:08/1975 (50 yo F)Acc No.[id number]:09/25/2025 Patient: SIGIFREDO ALLRED Provider: Tevin Jean PA-C :1975 A ge:50 Y S ex:Female Date:09/25/2025 [facility] Pcp:Betito Rico * Electronic signature of Lorena Jean PA-C on 10/10/2025 at 11:00 AM EST Sign off status: Pending * Provider: Tevin Jean PA-C Date: 11/26/2024 Generated for Tacho macario/Flavio/eTransmitting on: 11:00 AM EST
--- NOTE | 2025-10-10 08:59 | MHC.PC.OV ---
Vital Signs 10/10/25 09:01 Height 5 ft 3 in Weight 157 lb 4 oz BMI 27.9 BP 124/62 Blood Pressure Location Lt brachial Position Sitting Temp 97.5 F Temp Source Temporal Artery Scan Intake Visit Reasons: Annual Exam Intake Note: Patient is here today for a physical. Signals Intelligence Analyst Required: No Machine Tool Technology Instructor: Not Required per policy Accompanied by: Self / Same As Patient Allergies erythromycin base (ERYTHROMYCIN BASE) Allergy (Severe, Verified 10/10/25 09:11) PANCREATITIS Penicillins (PCN) Allergy (Severe, Verified 10/10/25 09:11) HIVES Medication List - Last Reconciled 10/10/25 by Betito Rico PA-C minoxidil 2.5 mg PO DAILY 30 days ondansetron mg PO polyethylene glycol 3350 (Miralax) 17 grams PO DAILY Tobacco use date assessed: 10/10/25 Dental Screening Dental Screen Date: 07/05/25 HPI Annual Exam HPI Details Patient is a 50 y/u F here today for a routine annual physical. Patient has a past medical history significant for EDS, fibromyalgia, ADHD, mood disorder. -- > Last month, she was hospitalized for what was diagnosed as food poisoning, characterized by severe nausea and vomiting, though she was the only one who became ill. She was unable to tolerate any oral intake, including water, and required anti-nausea medication as at-home ondansetron was ineffective. She believes the symptoms were a side effect of Wegovy sample injections she had been taking. She has a history of asymptomatic gallstones diagnosed years ago, and a recent GI consultation suggested a possible cholecystectomy due to ongoing symptoms of diarrhea, constipation, and bloating, despite the absence of pain. A recent H. pylori breath test was negative. Major depressive disorder: Patient continues to follow a mental health therapist quite regularly. She has previously on lithium, fluoxetine, trazodone, Adderall, and clonazepam. She is not seeing a psychiatrist or taking any mental health medications at this time. She did have a psychiatric admission this past year.. She feels her mental health is about the same without medication OPERATIONS SUPPORT PROFESSIONALS: Is followed by [facility], has done Pap smear which was normal . Colon cancer screening: Colonoscopy done in 2022-normal repeat 10 years Mammogram: Needs screening mammogram [facility] Medical History Blood in stool Alternating constipation and diarrhea Epigastric abdominal pain Feeling suicidal Depression Osteoarthritis Depression GERD (gastroesophageal reflux disease) Atypical chest pain GEORGES (obstructive sleep apnea) On anticoagulant therapy Menorrhagia Pulmonary embolism Syncope and collapse Subchondral sclerosis EDS (Juan-Danlos syndrome) Surgical History Hx of colonoscopy Hx of hand surgery History of endometrial ablation H/O bilateral breast reduction surgery Hx of section History of back surgery H/O knee surgery H/O shoulder surgery (~02/2019) Family History Paternal Aunt Breast cancer Father Diabetes High cholesterol HTN (hypertension) Maternal Uncle Stroke Maternal Grandfather Emphysema lung Lung cancer Maternal Grandmother Asthma Son Asthma Social History (Updated 10/10/25 @ 09:15 by Betito Rico PA-C) Household Members: Children Housing: Apartment Do you presently have visiting nurse or other home services: No Alcohol intake: never Comment: stated was minimal Patient Tobacco Use Status: Never used Tobacco Tobacco use type: Cigarette e-Cigarette/Vaping Use: Never Used Second Hand Smoke Exposure: No Substance Use Type: Marijuana Advance Directives Date on File: 08/31/20 service: No Current occupational status: employed 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 Sexual 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/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 Gender identity: Female Cognitive needs: No Hearing needs: No Vision needs: No Female Reproductive History Menstrual Age of Menarche: 14 Questionnaire Thrive Questionnaire Date Thrive assessed: 03/07/25 What is your living situation today?: I have a steady place to live Within the past 12 months, did the food you bought not last and you didn't have the money to get more?: Never true Within the past 12 months, did you worry whether your food would run out before you got money to buy more?: Never true Do you have trouble paying for medicines?: No Do you have trouble getting transportation to medical appointments?: No Do you have trouble paying your heating and electricity bill?: No Do you have trouble taking care of your child, family member or friend?: No Do you have trouble with day-to-day activities such as bathing, preparing meals, shopping, managing finances, etc.?: No Are you currently unemployed and looking for a job?: No Are you interested in more education?: No Currently or been in a relationship where the following occur: I choose not to answer THRIVE Score: 0 ARLENE-7 AMB Questionnaire ARLENE-7 Date ARLENE - 7 assessed: 03/07/25 Source: Developed by Drs. Joselusi Chew, Tameka Lane, Jose J Josue and colleagues, with an educational ligia from [employer]. Review of Systems Const Denies body aches, Denies chills, Denies excessive sweating, Denies fatigue, Denies fever(s) and Denies headache(s) Eyes Denies blurry vision ENT Denies dysphagia, Denies vertigo, Denies dizziness, Denies headache(s), Denies hearing loss and Denies tinnitus Card Denies chest pain, Denies chest pain with activity, Denies syncope, Denies irregular heart rhythm and Denies dyspnea Resp Denies chest congestion, Denies cough, Denies hemoptysis, Denies dyspnea and Denies wheezing GI Reports bloating, Reports constipation, Denies dysphagia and Reports nausea Denies urinary frequency, Denies dysuria, Denies urinary hesitancy and Denies urinary urgency Musc Denies arthralgias, Denies limited range of motion, Denies muscle cramps and Denies muscle weakness Skin/Breast Denies rash and Denies skin ulcer Neuro Denies Abnormal speech present, Denies confusion, Denies vertigo, Denies dizziness, Denies syncope, Denies headache(s), Denies memory loss and Denies seizure-like activity Psych Denies anxiety, Denies confusion, Denies depression, Denies memory loss, Denies panic attacks and Denies paranoia Endo Denies excessive sweating, Denies fatigue, Denies flushing, Denies polydipsia and Denies polyuria Aller/Immun Denies wheezing Physical exam (Primary Care) Vital Signs: Last Vital Signs Temp 97.5 F 10/10/25 09:01 BP 124/62 10/10/25 09:01 BMI result Body Mass Index 27.9 Tobacco/Smoking Status: Tobacco use Status Tobacco use date assessed 10/10/25 10/10/25 09:07 Patient Tobacco Use Status Never used Tobacco 10/10/25 09:07 Tobacco use type Cigarette 10/10/25 09:07 e-Cigarette/Vaping Use Never Used 10/10/25 09:07 Thrive Assessment: Date of Thrive Assessment Date Thrive assessed 03/07/25 10/10/25 09:07 Currently or been in a relationship where the following occur: I choose not to answer Const General: cooperative, comfortable, no acute distress, alert and awake; No confusion Orientation/consciousness: oriented to person, oriented to place, patient oriented x3 and No confusion HENMT Head: Yes normocephalic Ears: external ears normal and TM's normal bilaterally Face and sinus: No sinus tenderness Mouth: Normal oral and palatal mucosa present and tongue normal Teeth and gingiva: dentition normal and gingiva normal Throat: Yes posterior oropharynx normal, Yes tonsils normal and Yes uvula midline Eyes Conjunctivae: conjunctivae normal Sclerae: sclerae normal Pupils: Equal, round and reactive pupils present EOM: EOMs intact bilaterally Direct Ophthalmoscopy: No no photophobia Neck Neck: Yes no lymphadenopathy, No tender and Yes no JVD Thyroid: Thyroid normal Carotids: no bruits Chest Chest palpation & inspection: no tenderness Resp Effort & Inspection: normal respiratory effort, no audible wheezes, not labored and no stridor Auscultation: no crackles, no rales, no rhonchi and no wheezes Cardio Jugular venous distension: no JVD Rate: regular rate, not bradycardic and not tachycardic Rhythm: regular rhythm Bruits: no carotid bruits Peripheral pulses: Peripheral pulses 2+ throughout GI Inspection: Yes normal to inspection, No abdominal wall ecchymosis and No visible herniation Palpation (GI): Soft to palpation, nontender, no guarding, not rigid and No hepatosplenomegaly present Auscultation: normoactive bowel sounds General: Yes no CVA tenderness Back/Spine/Pelvis Back: no CVA tenderness and No back tenderness Cervical Spine: cervical ROM normal Thoracic/Lumbar Spine: thoracic and lumbar spine normal to inspection, straight leg raise negative bilaterally, No thoraco-lumbar ROM limited and No lumbar spinal tenderness Skin Lesions: no lesions Rashes: no rashes Wounds: no wounds Neuro General: oriented to person, oriented to place, patient oriented x3, CN's II-XI intact bilaterally and No confusion Cranial nerves: Yes Equal, round and reactive pupils present and Yes Normal accommodation reflex present Cognition (Neuro): normal cognition Speech: No Abnormal speech present Gait exam (Neuro): Normal gait present Motor exam (neuro): 5/5 motor strength present throughout Extrem Right upper extremity: full ROM; no cyanosis Left upper extremity: full ROM; no cyanosis Right lower extremity: no edema Left lower extremity: no edema Psych Appearance: grossly normal Mental Status: mental status grossly normal Affect: normal affect Attitude: cooperative Thought process: Normal thought process present Coding Level of Care Code Est Pt Prev Care 40-64y(09235) Diagnoses Annual physical exam Z00.00 MDD (major depressive disorder), recurrent episode, moderate F33.1 Borderline high cholesterol E78.9 Screening for diabetes mellitus (DM) Z13.1 Bloating R14.0 Assessment & Plan Assessment & Plan (1) Annual physical exam: Code(s): Z00.00 - Encounter for general adult medical examination without abnormal findings Category: Medical Plan: As per HPI (2) MDD (major depressive disorder), recurrent episode, moderate: Code(s): F33.1 - Major depressive disorder, recurrent, moderate Category: Medical Plan: Patient continues to follow to health therapist. She is now off of all over psychiatric medication and feels just about the same. She is interested in applying for [facility] intermittent for mental health emotional reasons.. (3) Borderline high cholesterol: Code(s): E78.9 - Disorder of lipoprotein metabolism, unspecified Category: Medical Plan: Patient has a history of borderline high total cholesterol. She will work weight reduction and better eating habits to reduce her cholesterol. Will continue to follow fasting lipid panel. (4) Screening for diabetes mellitus (DM): Code(s): Z13.1 - Encounter for screening for diabetes mellitus Category: Medical Plan: As per HPI (5) Bloating: Code(s): R14.0 - Abdominal distension (gaseous) Category: Medical Plan: For her GI symptoms, including bloating, constipation, diarrhea, and a history of nausea, she will continue to follow up with Gastroenterology. She is aware that GI is considering a cholecystectomy for her symptoms despite her known gallstones being asymptomatic. Orders: Orders Comprehensive [place]. Panel Fast Today Z13.1 - Encounter for screening for diabetes mellitus
[2025-10-10 09:01] VITALS: BP 124/62; TEMP 36.4; BMI 27.9
--- OUTSIDE RECORDS SUMMARY | 2025-10-10 10:58 | XMS_ITS | Encounter Summary ---
Author Organization [facility] Prior to 08/12/[address] [place] [address] Care Team Providers Care Iron Miner Name Role Phone Rosalva Stephen MD Primary Care Provider Encounter Details Date Type Department Care Team Description 07/10/2022 Home Health Certification Medical Records [address] [place] [address] [facility] [address] [phone] Social History Tobacco Use Types Packs/Day Years [...] on filedocumented in this encounter Care Teams Iron Miner Relationship Specialty Start Date End Date Rosalva Stephen MD [address] [place] [address] PCP - General Internal Medicine 04/01/21 documented as of this encounter
--- OUTSIDE RECORDS SUMMARY | 2025-10-10 10:58 | XMS_ITS | Encounter Summary ---
Author Organization [facility] Prior to 08/12/[address] [place] [address] Care Team Providers Care Clerk Stenographer Name Role Phone Doug Cosby MD Primary Care Provider Unavail able [place] Colasacco, Frances DO Primary Care Pro vider Unavailable Milton Hummel Primary Care Provider Unav ailable Rj Lino MD Primary Care Provider Unava ilable Milton Hummel Primary Care Provider Unav ailable [place] Colasacco, Frances DO Primary Care Pro vider Unavailable Rosalva Stephen MD Primary Care Provider [phone] [place] Colasacco, Frances DO Primary Care Pro vider Unavailable Rosalva Stephen MD Primary Care Provider [phone] Encounter Details Date Type Department Care Team Description 07/09/2018 Release of Information Medical Records [address] [place] [address] Abstract, Provider Social History Tobacco Use Types [...] on filedocumented in this encounter Care Teams Clerk Stenographer Relationship Specialty Start Date End Date Doug [...] Medicine 08/05/19 03/05/21 Rosalva Stephen MD [address] [place] [id number] PCP - General Internal Medicine 03/06/21 03/11/21 Frances Sung DO PCP - General Internal Medicine 03/12/21 03/31/21 Rosalva Stephen MD [address] [place] [id number] PCP - General Internal Medicine 04/01/21 documented as of this encounter
--- OUTSIDE RECORDS SUMMARY | 2025-10-10 10:58 | XMS_ITS | Encounter Summary ---
Author Organization [facility] Prior to 08/12/[address] [place] [address] Care Team Providers Care Ocular Care Aide Name Role Phone Frances Sung DO Primary Care Pro vider Unavailable Rosalva Stephen MD Primary Care Provider [phone] Frances Sung DO Primary Care Pro vider Unavailable Rosalva Stephen MD Primary Care Provider [phone] Encounter Details Date Type Department Care Team Description 07/18/2020 Pt. Non Urgent Medical Question Physiatry - [address] [address] Na Reardon MD [address] [place] [address] [id number] [id number] Social History Tobacco Use Types Packs/Day Years [...] AM EDT documented as of this encounter Progress Notes * Susan Nielson M.A. - 07/18/2020 3:43 PM EDTFrom: Deb Malcolm To: Na Reardon MD Sent: 07/18/2020 3:28 PM EDT Subject: bulging disks and degenerative disk disease It might look mild but I'm experience pain daily. Even brushing my hair hurts which is why I keep cutting it even though I don't want to. Pain sensitivity is common in patients with hEDS so what looks mild does not feel mild to me. Maybe my body reacts to the slightest changes. I don' t know. I just know that I feel pain every single day. I want that noted please. My body is truly exhausted allthe time. documented in this encounter Plan of Treatment Not on file documented as of this encounter Visit Diagnoses Not on filedocumented in this encounter Care Teams Ocular Care Aide Relationship Specialty Start Date End Date Frances Sung DO PCP - General Internal Medicine 08/05/19 03/05/21 Rosalva Stephen MD [address] [place] [id number] PCP - General Internal Medicine 03/06/21 03/11/21 Frances Sung DO PCP - General Internal Medicine 03/12/21 03/31/21 Rosalva Stephen MD [address] [place] [address] PCP - General Internal Medicine 04/01/21 documented as of this encounter
--- OUTSIDE RECORDS SUMMARY | 2025-10-10 10:58 | XMS_ITS | Encounter Summary ---
Author Organization [facility] Prior to 08/12/[address] [place] [address] Care Team Providers Care Chicken Catcher Name Role Phone Milton Hummel Primary Care Provider Unav ailable Rj Lino MD Primary Care Provider Unava ilable Milton Hummel Primary Care Provider Unav ailable [place] Colasacco, Frances DO Primary Care Pro vider Unavailable Rosalva Stephen MD Primary Care Provider [phone] [place] Colasacco, Frances DO Primary Care Pro vider Unavailable Rosalva Stephen MD Primary Care Provider [phone] Encounter Details Date Type Department Care Team Description 04/25/2019 Release of Information Medical Records [address] [place] [address] Abstract, Provider Social History Tobacco Use Types [...] on filedocumented in this encounter Care Teams Chicken Catcher Relationship Specialty Start Date End Date Milton Hummel PCP - General Internal Medicine 02/25/19 06/26/19 Rj Lino MD PCP - General Internal Medicine 06/27/19 07/05/19 Milton Hummel PCP - General Internal Medicine 07/06/19 08/04/19 Frances Sung DO PCP - General Internal Medicine 08/05/19 03/05/21 Rosalva Stephen MD [address] [place] [id number] PCP - General Internal Medicine 03/06/21 03/11/21 Frances Sung DO PCP - General Internal Medicine 03/12/21 03/31/21 Rosalva Stephen MD [address] [place] [address] [id number] PCP - General Internal Medicine 04/01/21 documented as of this encounter
--- OUTSIDE RECORDS SUMMARY | 2025-10-10 10:58 | XMS_ITS | Encounter Summary ---
Author Organization [facility] Prior to 08/12/[address] [place] [address] Care Team Providers Care Breaking Machine Operator Name Role Phone Rosalva Stephen MD Primary Care Provider [phone] Reason for Visit * Reason Onset Date Comments Faxed Order 09/24/2022 [facility] -09/07/2022 Encounter Details Date Type Department Care Team Description 09/24/2022 Telephone Adult Medicine [address] [address] Rosalva Stephen MD [address] [place] [address] Faxed Order ([facility] 07/10/2022-09/07/2022) Social History [...] on filedocumented in this encounter Care Teams Breaking Machine Operator Relationship Specialty Start Date End Date Rosalva Stephen MD [address] [place] [address] [place] [address] PCP - General Internal Medicine 04/01/21 documented as of this encounter
--- OUTSIDE RECORDS SUMMARY | 2025-10-10 10:58 | XMS_ITS | Encounter Summary ---
Author Organization [facility] Prior to 08/12/[address] [place] [address] Care Team Providers Care Forward Air Controller/Air Officer Name Role Phone [place] Colasacco, Frances DO [...] Unavailable Rosalva Stephen MD Primary Care Provider [phone] [place] Colasacco, Frances DO Primary Care Pro vider Unavailable Rosalva Stephen MD Primary Care Provider [phone] Encounter Details Date Type Department Care Team Description 04/12/2018 Pt. Non Urgent Medical Question Physiatry - [place] [address] [place] [address] Na Reardon MD [address] [place] [address] Dr [place], [place] [id number] Social History Tobacco Use Types Packs/Day Years [...] on filedocumented in this encounter Care Teams Forward Air Controller/Air Officer Relationship Specialty Start Date End Date Frances [...] Medicine 08/05/19 03/05/21 Rosalva Stephen MD [address] [place] [address] PCP - General Internal Medicine 03/06/21 03/11/21 Frances Sung DO PCP - General Internal Medicine 03/12/21 03/31/21 Rosalva Stephen MD [address] [place] [id number] PCP - General Internal Medicine 04/01/21 documented as of this encounter
--- OUTSIDE RECORDS SUMMARY | 2025-10-10 10:58 | XMS_ITS | Encounter Summary ---
Author Organization [facility] Prior to 08/12/[address] [place] [address] Care Team Providers Care Breastfeeding Program Coordinator Name Role Phone Frances Sung DO Primary Care Pro vider Unavailable Rosalva Stephen MD Primary Care Provider [phone] Frances Sung DO Primary Care Pro vider Unavailable Rosalva Stephen MD Primary Care Provider [phone] Encounter Details Date Type Department Care Team Description 07/17/2020 Refill Physiatry - [address] [address] Na Reardon MD [address] [place] [address] Dr [facility] [place] [id number] Social History Tobacco Use Types Packs/Day Years [...] knee documented in this encounter Care Teams Breastfeeding Program Coordinator Relationship Specialty Start Date End Date Frances Sung DO PCP - General Internal Medicine 08/05/19 03/05/21 Rosalva Stephen MD [address] [place] [id number] PCP - General Internal Medicine 03/06/21 03/11/21 Frances Sung DO PCP - General Internal Medicine 03/12/21 03/31/21 Rosalva Stephen MD [address] [place] [id number] PCP - General Internal Medicine 04/01/21 documented as of this encounter
--- OUTSIDE RECORDS SUMMARY | 2025-10-10 10:58 | XMS_ITS | Encounter Summary ---
Author Organization [facility] Prior to 08/12/[address] [place] [address] Care Team Providers Care Protective Signal Installer Name Role Phone [place] Colasacco, Frances DO Primary Care Pro vider Unavailable Doug Cosby MD Primary Care Provider Unavail able [place] Colasacco, Frnaces DO Primary Care Pro vider Unavailable Milton Hummel Primary Care Provider Unav ailable Rj Lino MD Primary Care Provider Unava ilable iMlton Hummel Primary Care Provider Unav ailable [place] Colasacco, Frances DO Primary Care Pro vider Unavailable Rosalva Stephen MD Primary Care Provider [phone] [place] Colasacco, Frances DO Primary Care Pro vider Unavailable Rosalva Stephen MD Primary Care Provider [phone] Encounter Details Date Type Department Care Team Description 04/26/2018 Pt. Non Urgent Medical Question Physiatry - [place] [address] [place] [address] Na Reardon MD [address] [place] [address] Dr [place], [place] [id number] Social History Tobacco Use Types Packs/Day Years [...] pain after a physical therapy session. My manager audio called me and my concrete stone finishing supervisor in for ameeting and let me [...] clinical nurse specialist that I see at [facility] for psychiatric counseling and medications stated that [...] on filedocumented in this encounter Care Teams Protective Signal Installer Relationship Specialty Start Date End Date Frances [...] Medicine 08/05/19 03/05/21 Rosalva Stephen MD [address] [place] [address] PCP - General Internal Medicine 03/06/21 03/11/21 Frances Sung DO PCP - General Internal Medicine 03/12/21 03/31/21 Rosalva Stephen MD [address] [place] [id number] PCP - General Internal Medicine 04/01/21 documented as of this encounter
--- OUTSIDE RECORDS SUMMARY | 2025-10-10 10:58 | XMS_ITS | Encounter Summary ---
Author Organization [facility] Prior to 08/12/[address] [place] [address] Care Team Providers Care Line Haul Owner Operator Name Role Phone Rosalva Stephen MD Primary Care Provider [phone] Encounter Details Date Type Department Care Team Description 11/07/2022 Home Health Certification Medical Records [address] [place] [address] [facility] [address] [phone] Social History Tobacco Use Types Packs/Day Years [...] on filedocumented in this encounter Care Teams Line Haul Owner Operator Relationship Specialty Start Date End Date Rosalva Stephen MD [address] [place], [place] [id number] PCP - General Internal Medicine 04/01/21 documented as of this encounter
--- OUTSIDE RECORDS SUMMARY | 2025-10-10 10:58 | XMS_ITS | Encounter Summary ---
Author Organization [facility] Prior to 08/12/[address] [place] [address] Care Team Providers Care Insights Manager Name Role Phone Frances Sung DO Primary Care Pro vider Unavailable Rosalva Stephen MD Primary Care Provider [phone] Frances Sung DO Primary Care Pro vider Unavailable Rosalva Stephen MD Primary Care Provider [phone] Encounter Details Date Type Department Care Team Description 08/29/2020 Hospital Medical Records [address] [place] [id number] [place] [address] Social History Tobacco Use Types Packs/Day Years [...] on filedocumented in this encounter Care Teams Insights Manager Relationship Specialty Start Date End Date Frances Sung DO PCP - General Internal Medicine 08/05/19 03/05/21 Rosalva Stephen MD [address] [place] [address] PCP - General Internal Medicine 03/06/21 03/11/21 Frances Sung DO PCP - General Internal Medicine 03/12/21 03/31/21 Rosalva Stephen MD [address] [place] [address] PCP - General Internal Medicine 04/01/21 documented as of this encounter
--- OUTSIDE RECORDS SUMMARY | 2025-10-10 10:58 | XMS_ITS | Encounter Summary ---
Author Organization [facility] Prior to 08/12/[address] [place] [address] Care Team Providers Care Netezza Architect Name Role Phone Milton Hummel Primary Care Provider Unav ailable Rj Lino MD Primary Care Provider Unava ilable Milton Hummel Primary Care Provider Unav ailable Krakowiak Colasacco, Frances DO Primary Care Pro vider Unavailable Rosalva Stephen MD Primary Care Provider [phone] Krakowiak Colasacco, Frances DO Primary Care Pro vider Unavailable Rosalva Stephen MD Primary Care Provider [phone] Encounter Details Date Type Department Care Team Description 03/22/2019 Refill OBGYN - [address] [id number] Meghann Lewis, [address] [id number] Social History Tobacco Use Types Packs/Day Years [...] EDT WHEN WAS THE PATIENTS LAST ANNUAL PURE CULTURE OPERATOR EXAM? 03/11/18 Does patient have an upcoming [...] NO Payor: [facility] [employer] FFS / Plan: [facility] / Product Type: MEDICAID RISK * [...] per tablet [Meghann Lewis CNM] Preferred pharmacy: [facility] #[id number] [place] [address] GARZA Comment: documented in this encounter Plan of Treatment Not on file documented as of this encounter Visit Diagnoses Not on filedocumented in this encounter Care Teams Netezza Architect Relationship Specialty Start Date End Date Milton Hummel PCP - General Internal Medicine 02/25/19 06/26/19 Rj Lino MD PCP - General Internal Medicine 06/27/19 07/05/19 Milton Hummel PCP - General Internal Medicine 07/06/19 08/04/19 Frances Sung DO PCP - General Internal Medicine 08/05/19 03/05/21 Rosalva Stephen MD [address] [place] [address] PCP - General Internal Medicine 03/06/21 03/11/21 Frances Sung DO PCP - General Internal Medicine 03/12/21 03/31/21 Rosalva Stephen MD [address] [place] [address] PCP - General Internal Medicine 04/01/21 documented as of this encounter
--- OUTSIDE RECORDS SUMMARY | 2025-10-10 10:58 | XMS_ITS | Encounter Summary ---
Author Organization [facility] Prior to 08/12/[address] [place] [address] Care Team Providers Care Senior Technologist Name Role Phone Krakowiak Colasacco, Frances DO [...] Unavailable Rosalva Stephen MD Primary Care Provider [phone] Krak[place]iak Colasacco, Frances DO Primary Care Pro vider Unavailable Rosalva Stephen MD Primary Care Provider [phone] Reason for Visit * Reason Comments E-prescribe Rx Request Encounter Details Date Type Department Care Team Description 04/14/2018 Refill Physiatry - [address] [address] Sixto Olmedo DO E-prescribe Rx Request Social [...] filedocumented in this encounter Care Teams Senior Technologist Relationship Specialty Start Date End Date Frances [...] Medicine 08/05/19 03/05/21 Rosalva Stephen MD [address] [place] [address] PCP - General Internal Medicine 03/06/21 03/11/21 Frances Sung DO PCP - General Internal Medicine 03/12/21 03/31/21 Rosalva Stephen MD [address] [place] [address] PCP - General Internal Medicine 04/01/21 documented as of this encounter
--- OUTSIDE RECORDS SUMMARY | 2025-10-10 10:58 | XMS_ITS | Encounter Summary ---
Author Organization [facility] Prior to 08/12/[address] [place] [address] Care Team Providers Care Qualitative Field Coordinator Name Role Phone Rosalva Stephen MD Primary Care Provider [phone] Encounter Details Date Type Department Care Team Description 04/01/2021 [facility] Medical Records [address] [place] [address] Abstract, Provider Social History Tobacco Use Types [...] on filedocumented in this encounter Care Teams Qualitative Field Coordinator Relationship Specialty Start Date End Date Rosalva Stephen MD [address] [place] [address] PCP - General Internal Medicine 04/01/21 documented as of this encounter
--- OUTSIDE RECORDS SUMMARY | 2025-10-10 10:58 | XMS_ITS | Encounter Summary ---
Author Organization [facility] Prior to 08/12/[address] [place] [address] Care Team Providers Care Court Deputy Name Role Phone Doug Cosby MD Primary Care Provider Unavail able Krakowiak Colasacco, Frances DO Primary Care Pro vider Unavailable Milton Hummel Primary Care Provider Unav ailable Rj Lino MD Primary Care Provider Unava ilable Milton Hummel Primary Care Provider Unav ailable [place] Colasacco, Frances DO Primary Care Pro vider Unavailable Rosalva Stephen MD Primary Care Provider [phone] Krak[place]iak Colasacco, Frances DO Primary Care Pro vider Unavailable Rosalva Stephen MD Primary Care Provider [phone] Encounter Details Date Type Department Care Team Description 05/17/2018 [facility] Medical Records [address] [place] [address] Abstract, Provider Social History Tobacco Use Types [...] on filedocumented in this encounter Care Teams Court Deputy Relationship Specialty Start Date End Date Doug [...] Medicine 08/05/19 03/05/21 Rosalva Stephen MD [address] [place] [address] PCP - General Internal Medicine 03/06/21 03/11/21 Frances Sung DO PCP - General Internal Medicine 03/12/21 03/31/21 Rosalva Stephen MD [address] [place] [address] PCP - General Internal Medicine 04/01/21 documented as of this encounter
--- OUTSIDE RECORDS SUMMARY | 2025-10-10 10:58 | XMS_ITS | Encounter Summary ---
Author Organization [facility] Prior to 08/12/[address] [place] [address] Care Team Providers Care Top Cager Name Role Phone Frances Sung DO Primary Care Pro vider Unavailable Rosalva Stephen MD Primary Care Provider [phone] Frances Sung DO Primary Care Pro vider Unavailable Rosalva Stephen MD Primary Care Provider [phone] Encounter Details Date Type Department Care Team Description 09/10/2020 Pt. Non Urgent Medical Question Physiatry - [address] [id number] Na Reardon MD [address] [place] [address] [place] [id number] Social History Tobacco Use Types Packs/Day Years [...] on filedocumented in this encounter Care Teams Top Cager Relationship Specialty Start Date End Date Frances Sung DO PCP - General Internal Medicine 08/05/19 03/05/21 Rosalva Stephen MD [address] [place] [address] PCP - General Internal Medicine 03/06/21 03/11/21 Frances Sung DO PCP - General Internal Medicine 03/12/21 03/31/21 Rosalva Stephen MD [address] [place] [address] [phone] PCP - General Internal Medicine 04/01/21 documented as of this encounter
--- OUTSIDE RECORDS SUMMARY | 2025-10-10 10:58 | XMS_ITS | Encounter Summary ---
Author Organization [facility] Prior to 08/12/[address] [place] [address] Care Team Providers Care Claim Review Medical Director Name Role Phone Rosalva Stephen MD Primary Care Provider [phone] Encounter Details Date Type Department Care Team Description 12/12/2021 Telephone Gastroenterology - [place] [address] [facility] [address] [place] [address] Michael Hsu MD [address] [place] [address] Social History Tobacco Use Types Packs/Day Years [...] on filedocumented in this encounter Care Teams Claim Review Medical Director Relationship Specialty Start Date End Date Rosalva Stephen MD [address] [place] [address] PCP - General Internal Medicine 04/01/21 documented as of this encounter
--- OUTSIDE RECORDS SUMMARY | 2025-10-10 10:58 | XMS_ITS | Encounter Summary ---
Author Organization [facility] Prior to 08/12/[address] [place] [address] Care Team Providers Care Aircraft Refueler Name Role Phone Frances Sung DO Primary Care Pro vider Unavailable Rosalva Stephen MD Primary Care Provider [phone] Frances Sung DO Primary Care Pro vider Unavailable Rosalva Stephen MD Primary Care Provider [phone] Encounter Details Date Type Department Care Team Description 08/31/2020 Pt. Non Urgent Medical Question Physiatry - [address] [address] Na Reardno MD [address] [place] [address] [place], [place] [id number] Social History Tobacco Use Types Packs/Day Years [...] EST Subject: PE I was admitted to [facility] with a pulmonary embolism for one day. I was at [facility] today and saw my PCP today. I have appts with cardiology, hematology and Ortho for my hip. I just wanted to inform you. documented in this encounter Plan of Treatment Not on file documented as of this encounter Visit Diagnoses Not on filedocumented in this encounter Care Teams Aircraft Refueler Relationship Specialty Start Date End Date Frances Sung DO PCP - General Internal Medicine 08/05/19 03/05/21 Rosalva Stephen MD [address] [place] [address] PCP - General Internal Medicine 03/06/21 03/11/21 Frances Sung DO PCP - General Internal Medicine 03/12/21 03/31/21 Rosalva Stephen MD [address] [place] [address] PCP - General Internal Medicine 04/01/21 documented as of this encounter
--- OUTSIDE RECORDS SUMMARY | 2025-10-10 10:58 | XMS_ITS | Encounter Summary ---
Author Organization [facility] Prior to 08/12/[address] [place] [address] Care Team Providers Care Quality Assurance Clerk Name Role Phone Rosalva Stephen MD Primary Care Provider [phone] Encounter Details Date Type Department Care Team Description 04/23/2021 Refill Rheumatology - [address] [phone] Loyd Langston PA Social History Tobacco Use [...] filedocumented in this encounter Care Teams Quality Assurance Clerk Relationship Specialty Start Date End Date Rosalva Stephen MD [address] [place] [address] PCP - General Internal Medicine 04/01/21 documented as of this encounter
--- OUTSIDE RECORDS SUMMARY | 2025-10-10 10:58 | XMS_ITS | Encounter Summary ---
Author Organization [facility] Prior to 08/12/[address] [place] [address] 8[address] Care Team Providers Care Principal Quality Engineer Name Role Phone Doug Cosby MD Primary Care Provider Unavail able [place]rakowiak Colasacco, Frances DO Primary Care Pro vider Unavailable Milton Hummel Primary Care Provider Unav ailable Rj Lino MD Primary Care Provider Unava ilable Milton Hummel Primary Care Provider Unav ailable [place] Colasacco, Frances DO Primary Care Pro vider Unavailable Rosalva Stephen MD Primary Care Provider [phone] Krak[place]iak Colasacco, Frances DO Primary Care Pro vider Unavailable Rosalva Stephen MD Primary Care Provider [phone] Encounter Details Date Type Department Care Team Description 06/18/2018 [facility] Medical Records [address] [place] [address] Abstract, Provider Social History Tobacco Use Types [...] on filedocumented in this encounter Care Teams Principal Quality Engineer Relationship Specialty Start Date End Date [...] Internal Medicine 08/05/19 03/05/21 Rosalva Stephen MD [address] [place] [address] PCP - General Internal Medicine 03/06/21 03/11/21 Frances Sung DO PCP - General Internal Medicine 03/12/21 03/31/21 Rosalva Stephen MD [address] [place] [address] PCP - General Internal Medicine 04/01/21 documented as of this encounter
--- OUTSIDE RECORDS SUMMARY | 2025-10-10 10:58 | XMS_ITS | Encounter Summary ---
Author Organization [facility] Prior to 08/12/[address] [place] [address] Care Team Providers Care Government Property Inspector Name Role Phone Rosalva Stephen MD Primary Care Provider [phone] Encounter Details Date Type Department Care Team Description 04/11/2021 Hospital Medical Records [address] [place] [address] [facility] Social History Tobacco Use Types Packs/Day Years [...] on filedocumented in this encounter Care Teams Government Property Inspector Relationship Specialty Start Date End Date Rosalva Stephen MD [address] [place] [address] PCP - General Internal Medicine 04/01/21 documented as of this encounter
--- OUTSIDE RECORDS SUMMARY | 2025-10-10 10:58 | XMS_ITS | Encounter Summary ---
Author Organization [facility] Prior to 08/12/[address] [place] [address] Care Team Providers Care Auto Parts Salesperson Name Role Phone Milton Hummel Primary Care Provider Unav ailable Rj Lino MD Primary Care Provider Unava ilable Milton Hummel Primary Care Provider Unav ailable Krakowiak Colasajohanneo, Frances DO Primary Care Pro vider Unavailable Rosalva Stephen MD Primary Care Provider [phone] Krakowiak Colasacco, Frances DO Primary Care Pro vider Unavailable Rosalva Stephen MD Primary Care Provider [phone] Encounter Details Date Type Department Care Team Description 05/30/2019 Pt. Non Urgent Medical Question Physiatry - [address] [address] Na Reardon MD [address] [place] [address] [place] [address] Social History Tobacco Use Types Packs/Day Years [...] filedocumented in this encounter Care Teams Auto Parts Salesperson Relationship Specialty Start Date End Date Milton Hummel PCP - General Internal Medicine 02/25/19 06/26/19 jR Lino MD PCP - General Internal Medicine 06/27/19 07/05/19 Milton Hummel PCP - General Internal Medicine 07/06/19 08/04/19 Frances Sung DO PCP - General Internal Medicine 08/05/19 03/05/21 Rosalva Stephen MD [address] [place] [address] PCP - General Internal Medicine 03/06/21 03/11/21 Frances Sung DO PCP - General Internal Medicine 03/12/21 03/31/21 Rosalva Stephen MD [address] [place] [address] PCP - General Internal Medicine 04/01/21 documented as of this encounter
--- OUTSIDE RECORDS SUMMARY | 2025-10-10 10:58 | XMS_ITS | Encounter Summary ---
Author Organization [facility] Prior to 08/12/[address] [place] [address] Care Team Providers Care Zoo Veterinarian Name Role Phone Rosalva Stephen MD Primary Care Provider [phone] Encounter Details Date Type Department Care Team Description 07/17/2021 Pt. Non Urgent Medical Question Rheumatology - [address] [address] Loyd Langston PA Social History Tobacco Use [...] X-ray done a few years ago at [facility] in [place]. I have EDS, a connective tissue disorder, [...] on filedocumented in this encounter Care Teams Zoo Veterinarian Relationship Specialty Start Date End Date Rosalva Stephen MD [address] [place] [address] PCP - General Internal Medicine 04/01/21 documented as of this encounter
--- OUTSIDE RECORDS SUMMARY | 2025-10-10 10:58 | XMS_ITS | Encounter Summary ---
Author Organization [facility] Prior to 08/12/[address] [place] [address] Care Team Providers Care Data Base Design Analyst Name Role Phone Milton Hummel Primary Care Provider Unav ailRj Pyle MD Primary Care Provider Unava ilMilton Alicea Primary Care Provider Unav ailable Denicekorenak Coltwylao, Frances DO Primary Care Pro vider Unavailable Rosalva Stephen MD Primary Care Provider [phone] Krakowiak Colasacco, Frances DO Primary Care Pro vider Unavailable Rosalva Stephen MD Primary Care Provider [phone] Reason for Visit * Reason Onset Date Comments Provider Call Back 04/19/2019 Encounter Details Date Type Department Care Team Description 04/19/2019 Pt. Non Urgent Medical Question Physiatry - [address] [address] Na Reardon MD [address] [place] [address] [place] [id number] Social History Tobacco Use Types Packs/Day Years [...] filedocumented in this encounter Care Teams Data Base Design Analyst Relationship Specialty Start Date End Date Milton Hummel PCP - General Internal Medicine 02/25/19 06/26/19 Rj Lino MD PCP - General Internal Medicine 06/27/19 07/05/19 Milton Hummel PCP - General Internal Medicine 07/06/19 08/04/19 Frances Sung DO PCP - General Internal Medicine 08/05/19 03/05/21 Rosalva Stephen MD [address] [place] [address] PCP - General Internal Medicine 03/06/21 03/11/21 Frances Sung DO PCP - General Internal Medicine 03/12/21 03/31/21 Rosalva Stephen MD [address] [place] [address] PCP - General Internal Medicine 04/01/21 documented as of this encounter
--- OUTSIDE RECORDS SUMMARY | 2025-10-10 10:58 | XMS_ITS | Encounter Summary ---
Author Organization [facility] Prior to 08/12/[address] [place] [address] Care Team Providers Care Farm Helper Name Role Phone Doug Cosby MD Primary Care Provider Unavail able Krakowiak Colasacco, Frances DO Primary Care Pro vider Unavailable Milton Hummel Primary Care Provider Unav ailable Rj Lino MD Primary Care Provider Unava ilable Milton Hummel Primary Care Provider Unav ailable [place] Colasacco, Frances DO Primary Care Pro vider Unavailable Rosalva Stephen MD Primary Care Provider [phone] Krak[place]iak Colasacco, Frances DO Primary Care Pro vider Unavailable Rosalva Stephen MD Primary Care Provider [phone] Encounter Details Date Type Department Care Team Description 05/05/2018 Refill Physiatry - [address] [address] Alejandro Myers PA-C Social History Tobacco Use [...] M.A. - 05/06/2018 8:44 AM EDTFrom: Deb Mlacolm To: Alejandro Myers PA-C Sent: 05/05/2018 9:03 PM EDT Subject: Medication Renewal Request Original authorizing provider: CLAUDE FOY would like a refill of the following medications: cyclobenzaprine (FLEXERIL) 10 MG tablet [ALEJANDRO MYERS PA-C] Preferred pharmacy: [facility] #[id number] [facility], [address] [facility] Comment: documented in this encounter Plan of Treatment Not on file documented as of this encounter Visit Diagnoses Diagnosis Fibromyalgia Mylagia and myositis, unspecified documented in this encounter Care Teams Farm Helper Relationship Specialty Start Date End Date [...] Medicine 08/05/19 03/05/21 Rosalva Stephen MD [address] [place] [address] PCP - General Internal Medicine 03/06/21 03/11/21 Frances Sung DO PCP - General Internal Medicine 03/12/21 03/31/21 Rosalva Stephen MD [address] [place] [address] PCP - General Internal Medicine 04/01/21 documented as of this encounter
--- OUTSIDE RECORDS SUMMARY | 2025-10-10 10:58 | XMS_ITS | Encounter Summary ---
Author Organization [facility] Prior to 08/12/[address] [place] [address] Care Team Providers Care Security Infrastructure Engineer Name Role Phone Doug Cosby MD Primary Care Provider Unavail able Krakowiak Colasacco, Frances DO Primary Care Pro vider Unavailable Milton Hummel Primary Care Provider Unav ailable Rj Lino MD Primary Care Provider Unava ilable Milton Hummel Primary Care Provider Unav ailable [place] Colasacco, Frances DO Primary Care Pro vider Unavailable Rosalva Stephen MD Primary Care Provider [phone] Krak[place]iak Colasacco, Frances DO Primary Care Pro vider Unavailable Rosalva Stephen MD Primary Care Provider [phone] Encounter Details Date Type Department Care Team Description 05/05/2018 Refill Physiatry - [address] [address] Sixto Olmedo DO Social History Tobacco Use [...] MG tablet [Sixto Olmedo DO] Preferred pharmacy: [facility]Y #[id number] [place], [place] - [address] [facility] AT Comment: can we increase the [...] filedocumented in this encounter Care Teams Security Infrastructure Engineer Relationship Specialty Start Date End Date [...] Medicine 08/05/19 03/05/21 Rosalva Stephen MD [address] [place] [address] PCP - General Internal Medicine 03/06/21 03/11/21 Frances Sung DO PCP - General Internal Medicine 03/12/21 03/31/21 Rosalva Stephen MD [address] [place] [address] PCP - General Internal Medicine 04/01/21 documented as of this encounter
--- OUTSIDE RECORDS SUMMARY | 2025-10-10 10:58 | XMS_ITS | Encounter Summary ---
Author Organization [facility] Prior to 08/12/[address] [place] [address] Care Team Providers Care Insurance Licensing Supervisor Name Role Phone Milton Hummel Primary Care Provider Unav ailable Rj Lino MD Primary Care Provider Unava ilable Milton Hummel Primary Care Provider Unav ailable Denicekowiak Colasacco, Frances DO Primary Care Pro vider Unavailable Rosalva Stephen MD Primary Care Provider [phone] Krakowiak Colasacco, Frances DO Primary Care Pro vider Unavailable Rosalva Stephen MD Primary Care Provider [phone] Encounter Details Date Type Department Care Team Description 05/10/2019 Transfer Records Medical Records [address] [place] [address] Abstract, Provider Social History Tobacco Use Types [...] on filedocumented in this encounter Care Teams Insurance Licensing Supervisor Relationship Specialty Start Date End Date Milton Hummel PCP - General Internal Medicine 02/25/19 06/26/19 Rj Lino MD PCP - General Internal Medicine 06/27/19 07/05/19 Milton Hummel PCP - General Internal Medicine 07/06/19 08/04/19 Frances Sung DO PCP - General Internal Medicine 08/05/19 03/05/21 Rosalva Stephen MD [address] [place] [address] [id number] PCP - General Internal Medicine 03/06/21 03/11/21 Frances Sung DO PCP - General Internal Medicine 03/12/21 03/31/21 Rosalva Stpehen MD [address] [place] [address] [id number] PCP - General Internal Medicine 04/01/21 documented as of this encounter
--- OUTSIDE RECORDS SUMMARY | 2025-10-10 10:58 | XMS_ITS | Encounter Summary ---
Author Organization [facility] Prior to 08/12/[address] [place] [address] Care Team Providers Care Locomotive Oiler Name Role Phone Milton Hummel Primary Care Provider Unav ailable Rj Lino MD Primary Care Provider Unava ilable Milton Hummel Primary Care Provider Unav ailable Deincekowiak Colasacco, Frances DO Primary Care Pro vider Unavailable Rosalva Stephen MD Primary Care Provider [phone] [place]rak[place]ak Colasacco, Frances DO Primary Care Pro vider Unavailable Rosalva Stephen MD Primary Care Provider [phone] Encounter Details Date Type Department Care Team Description 04/21/2019 [facility] Medical Records [address] [place] [address] Abstract, Provider Social History Tobacco Use Types [...] on filedocumented in this encounter Care Teams Locomotive Oiler Relationship Specialty Start Date End Date Milton Hummel PCP - General Internal Medicine 02/25/19 06/26/19 Rj Lino MD PCP - General Internal Medicine 06/27/19 07/05/19 Milton Hummel PCP - General Internal Medicine 07/06/19 08/04/19 Frances Sung DO PCP - General Internal Medicine 08/05/19 03/05/21 Rosalva Stephen MD [address] [place] [address] [id number] PCP - General Internal Medicine 03/06/21 03/11/21 Frances Sung DO PCP - General Internal Medicine 03/12/21 03/31/21 Rosalva Stephen MD [address] [place] [address] [id number] PCP - General Internal Medicine 04/01/21 documented as of this encounter
--- OUTSIDE RECORDS SUMMARY | 2025-10-10 10:58 | XMS_ITS | Encounter Summary ---
Author Organization [facility] Prior to 08/12/[address] [place] [address] Care Team Providers Care Surgical Clinical Reviewer Name Role Phone Doug Cosby MD Primary Care Provider Unavail able [place] Colasacco, Frances DO Primary Care Pro vider Unavailable Milton Hummel Primary Care Provider Unav ailable jR Lino MD Primary Care Provider Unava ilable Milton Hummel Primary Care Provider Unav ailable [place] Colasacco, Frances DO Primary Care Pro vider Unavailable Rosalva Stephen MD Primary Care Provider [phone] [place] Colasacco, Frances DO Primary Care Pro vider Unavailable Rosalva Stephen MD Primary Care Provider [phone] Encounter Details Date Type Department Care Team Description 05/05/2018 Refill Physiatry - [address] [address] Mikey Bowser PA-C Social History Tobacco Use [...] - 05/06/2018 8:52 AM EDT Last visit 03/25/18 Next visit [...] MG capsule [Mikey Bowser PA-C] Preferred pharmacy: [id number] [place], [place] - [address] [facility] Comment: can we increase the [...] on filedocumented in this encounter Care Teams Surgical Clinical Reviewer Relationship Specialty Start Date End Date Doug [...] Medicine 08/05/19 03/05/21 Rosalva Stephen MD [address] [place] [address] PCP - General Internal Medicine 03/06/21 03/11/21 Frances Sung DO PCP - General Internal Medicine 03/12/21 03/31/21 Rosalva Stephen MD [address] [place] [address] [id number] PCP - General Internal Medicine 04/01/21 documented as of this encounter
--- OUTSIDE RECORDS SUMMARY | 2025-10-10 10:58 | XMS_ITS | Encounter Summary ---
Author Organization [facility] Prior to 08/12/[address] [place] [address] Care Team Providers Care Collective Bargaining Specialist Name Role Phone Rosalva Stephen MD Primary Care Provider [phone] Reason for Visit * Reason Onset Date Comments Faxed Order 12/09/2022 [facility] -12/03/2022 Encounter Details Date Type Department Care Team Description 12/09/2022 Telephone Adult Medicine [address] [address] Rosalva Stephen MD [address] [place] [address] Faxed Order ([facility] 12/01/2022-12/03/2022) Social History [...] on filedocumented in this encounter Care Teams Collective Bargaining Specialist Relationship Specialty Start Date End Date Rosalva Stephen MD [address] [place] [address] [place] [address] PCP - General Internal Medicine 04/01/21 documented as of this encounter
--- OUTSIDE RECORDS SUMMARY | 2025-10-10 10:58 | XMS_ITS | Encounter Summary ---
Author Organization [facility] Prior to 08/12/[address] [place] [address] Care Team Providers Care Packaging Clerk Name Role Phone Rosalva Stephen MD Primary Care Provider [phone] Reason for Visit * Reason Onset Date Comments Faxed Order 10/09/2022 [facility]-11/06/22 Encounter Details Date Type Department Care Team Description 10/09/2022 Telephone Adult Medicine [facility] [address] [place] [address] Rosalva Stephen MD [address] [place] [address] Faxed Order ([facility] 09/08/22-11/06/22) Social History Tobacco [...] - 10/09/2022 1:09 PM EST Orders from [facility] to be signed and faxed back to [phone] . documented in this encounter Plan of Treatment Not on file documented as of this encounter Visit Diagnoses Not on filedocumented in this encounter Care Teams Packaging Clerk Relationship Specialty Start Date End Date Rosalva Stephen MD [address] [place] [address] PCP - General Internal Medicine 04/01/21 documented as of this encounter
--- OUTSIDE RECORDS SUMMARY | 2025-10-10 10:58 | XMS_ITS | Encounter Summary ---
Author Organization [facility] Prior to 08/12/[address] [place] [address] Care Team Providers Care Automobile Mechanic Name Role Phone Rosalva Stephen MD Primary Care Provider [phone] Encounter Details Date Type Department Care Team Description 04/19/2021 Advertising Agency Manager Report Medical Records [address] [place] [address] Harjinder Stovall Social History Tobacco Use Types [...] on filedocumented in this encounter Care Teams Automobile Mechanic Relationship Specialty Start Date End Date Rosalva Stephen MD [address] [place] [address] [id number] PCP - General Internal Medicine 04/01/21 documented as of this encounter
--- OUTSIDE RECORDS SUMMARY | 2025-10-10 10:58 | XMS_ITS | Encounter Summary ---
Author Organization [facility] Prior to 08/12/[address] [place] [address] Care Team Providers Care Home Care Chaplain Name Role Phone Rosalva Stephen MD Primary Care Provider [phone] Encounter Details Date Type Department Care Team Description 04/26/2021 [facility] Medical Records [address] [place] [address] Abstract, Provider Social History Tobacco Use Types [...] on filedocumented in this encounter Care Teams Home Care Chaplain Relationship Specialty Start Date End Date Rosalva Stephen MD [address] [place] [id number] PCP - General Internal Medicine 04/01/21 documented as of this encounter
--- OUTSIDE RECORDS SUMMARY | 2025-10-10 10:59 | XMS_ITS | Encounter Summary ---
Author Organization [facility] Prior to 08/12/[address] [place] [address] Care Team Providers Care Weight And Balance Control Agent Name Role Phone Frances Sung DO Primary Care Pro vider Unavailable Milton Hummel Primary Care Provider Unav ailable Rj Lino MD Primary Care Provider Unava ilable Milton Hummel Primary Care Provider Unav ailable Frances Sung DO Primary Care Pro vider Unavailable Rosalva Stephen MD Primary Care Provider [phone] Frances Sung DO Primary Care Pro vider Unavailable Rosalva Stephen MD Primary Care Provider [phone] Encounter Details Date Type Department Care Team Description 10/11/2018 [facility] Medical Records [address] [place] [address] Abstract, Provider Social History Tobacco Use Types [...] filedocumented in this encounter Care Teams Weight And Balance Control Agent Relationship Specialty Start Date End Date Frances Sung DO PCP - General Internal Medicine 07/12/18 02/24/19 Milton Hummel PCP - General Internal Medicine 02/25/19 06/26/19 Rj Lino MD PCP - General Internal Medicine 06/27/19 07/05/19 Milton Hummel PCP - General Internal Medicine 07/06/19 08/04/19 Frances Sung DO PCP - General Internal Medicine 08/05/19 03/05/21 Rosalva Stephen MD [address] [place] [address] PCP - General Internal Medicine 03/06/21 03/11/21 Frances Sung DO PCP - General Internal Medicine 03/12/21 03/31/21 Rosalva Stephen MD [address] [place] [address] PCP - General Internal Medicine 04/01/21 documented as of this encounter
--- OUTSIDE RECORDS SUMMARY | 2025-10-10 10:59 | XMS_ITS | Encounter Summary ---
Author Organization [facility] Prior to 08/12/[address] [place] [address]31 Care Team Providers Care Children'S Librarian Name Role Phone Milton Hummel Primary Care Provider Unav ailable Sharla Coltwylao, Frances DO Primary Care Pro vider Unavailable Rosalva Stephen MD Primary Care Provider [phone] Krakorenak Colasacco, Frances DO Primary Care Pro vider Unavailable Rosalva Stephen MD Primary Care Provider [phone] Reason for Visit * Reason Onset Date Comments CSC Pill Count 07/06/2019 Encounter Details Date Type Department Care Team Description 07/06/2019 Telephone Physiatry - [address] [phone] Na Reardon MD [address] [place] [address] Dr [place], [place] [id number] CSC Pill Count Social History Tobacco Use [...] on filedocumented in this encounter Care Teams Children'S Librarian Relationship Specialty Start Date End Date Milton Hummel PCP - General Internal Medicine 07/06/19 08/04/19 Frances Sung DO PCP - General Internal Medicine 08/05/19 03/05/21 Rosalva Stephen MD [address] [place] [address] PCP - General Internal Medicine 03/06/21 03/11/21 Frances Sung DO PCP - General Internal Medicine 03/12/21 03/31/21 Rosalva Stephen MD [address] [place] [address] [id number] PCP - General Internal Medicine 04/01/21 documented as of this encounter
--- OUTSIDE RECORDS SUMMARY | 2025-10-10 10:59 | XMS_ITS | Encounter Summary ---
Author Organization [facility] Prior to 08/12/[address] [place] [address] Care Team Providers Care Career Technical Education Teacher Name Role Phone Rosalva Stephen MD Primary Care Provider [phone] Encounter Details Date Type Department Care Team Description 01/14/2022 Pt. Referral Request [facility] Jamey [address] [place] [address] [phone] Md Jamey Social History Tobacco Use Types [...] filedocumented in this encounter Care Teams Career Technical Education Teacher Relationship Specialty Start Date End Date Rosalva Stephen MD [address] [place] [address] [phone] PCP - General Internal Medicine 04/01/21 documented as of this encounter
--- OUTSIDE RECORDS SUMMARY | 2025-10-10 10:59 | XMS_ITS | Encounter Summary ---
Author Organization [facility] Prior to 08/12/[address] [place] [address] Care Team Providers Care Dialysis Technician Name Role Phone Milton Hummel Primary Care Provider Unav ailable Marvin Sungabela DO Primary Care Pro vider Unavailable Rosalva Stephen MD Primary Care Provider [phone] Sharla Westo, Frances DO Primary Care Pro vider Unavailable Rosalva Stephen MD Primary Care Provider [phone] Encounter Details Date Type Department Care Team Description 07/06/2019 Orders Only Adult Medicine [address] [address] Na Reardon MD [address] [place] [address] Dr [place] [id number] 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) Social History [...] CHG DRUG SCREENING CANNABINOIDS NATURAL Lab Routine predatory animal exterminator use of drug Expected: 07/06/2019, Expires: 07/05/2020 documented as of this encounter Visit Diagnoses Diagnosis 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
--- OUTSIDE RECORDS SUMMARY | 2025-10-10 10:59 | XMS_ITS | Encounter Summary ---
Author Organization [facility] Prior to 08/12/[address] [place] [address] Care Team Providers Care Environmental Sustainability Manager Name Role Phone Frances Sung DO Primary Care Pro vider Unavailable Rosalva Stephen MD Primary Care Provider [phone] Frances Sung DO Primary Care Pro vider Unavailable Rosalva Stephen MD Primary Care Provider [phone] Encounter Details Date Type Department Care Team Description 09/25/2020 [facility] [address] [place] [address] Md Natasha Social History Tobacco Use Types [...] filedocumented in this encounter Care Teams Environmental Sustainability Manager Relationship Specialty Start Date End Date Frances Sung DO PCP - General Internal Medicine 08/05/19 03/05/21 Rosalva Stephen MD [address] [place] [id number] PCP - General Internal Medicine 03/06/21 03/11/21 Frances Sung DO PCP - General Internal Medicine 03/12/21 03/31/21 Rosalva Stephen MD [address] [place] [address] [id number] PCP - General Internal Medicine 04/01/21 documented as of this encounter
--- OUTSIDE RECORDS SUMMARY | 2025-10-10 10:59 | XMS_ITS | Encounter Summary ---
Author Organization [facility] Prior to 08/12/[address] [place] [address] Care Team Providers Care Business Performance Analyst Name Role Phone Sharla Gaytan, Frances DO Primary Care Pro vider Unavailable Milton Hummel Primary Care Provider Unav ailable Rj Lino MD Primary Care Provider Unava ilable Milton Hummel Primary Care Provider Unav ailable Sharla Westo, Frances DO Primary Care Pro vider Unavailable Rosalva Stephen MD Primary Care Provider [phone] Krakojob Coltwylao, Frances DO Primary Care Pro vider Unavailable Rosalva Stephen MD Primary Care Provider [phone] Encounter Details Date Type Department Care Team Description 08/29/2018 Pt. Non Urgent Medical Question Physiatry - [address] [address] Na Reardon MD [address] [place] [address] [place] [id number] Social History Tobacco Use Types Packs/Day Years [...] left ankle Nov , [facility], they said it was sprained, I've [...] on filedocumented in this encounter Care Teams Business Performance Analyst Relationship Specialty Start Date End Date Frances Sung DO PCP - General Internal Medicine 07/12/18 02/24/19 Milton Hummel PCP - General Internal Medicine 02/25/19 06/26/19 Rj Lino MD PCP - General Internal Medicine 06/27/19 07/05/19 Milton Hummel PCP - General Internal Medicine 07/06/19 08/04/19 Frances Sung DO PCP - General Internal Medicine 08/05/19 03/05/21 Rosalva Stephen MD [address] [place] [address] [id number] PCP - General Internal Medicine 03/06/21 03/11/21 Frances Sung DO PCP - General Internal Medicine 03/12/21 03/31/21 Rosalva Stephen MD [address] [place] [address] [id number] PCP - General Internal Medicine 04/01/21 documented as of this encounter
--- OUTSIDE RECORDS SUMMARY | 2025-10-10 10:59 | XMS_ITS | Encounter Summary ---
Author Organization [facility] Prior to 08/12/[address] [place] [address] Care Team Providers Care Basketball Coach Name Role Phone Frances Sung DO Primary Care Pro vider Unavailable Rosalva Stephen MD Primary Care Provider [phone] Frances Sung DO Primary Care Pro vider Unavailable Rosalva Stephen MD Primary Care Provider [phone] Encounter Details Date Type Department Care Team Description 09/20/2020 Pt. Non Urgent Medic al Question Adult Medicine [address] [address] Frances Sung DO Social History Tobacco Use [...] Telephone Encounter - Janett Blackburn M.A. - 09/20/2020 1:37 PM ESTFrom: Deb Malcolm To: Frances Gaytan DO Sent: 09/20/2020 12:28 PM EST Subject: Shower chair Evie also said they put in an order for a shower chair from [facility]. Evie is my physical therapist from [facility]. documented in this encounter Plan of Treatment Not on file documented as of this encounter Visit Diagnoses Not on filedocumented in this encounter Care Teams Basketball Coach Relationship Specialty Start Date End Date Frances Sung DO PCP - General Internal Medicine 08/05/19 03/05/21 Rosalva Stephen MD [address] [place] [address] [phone] PCP - General Internal Medicine 03/06/21 03/11/21 Frances Sung DO PCP - General Internal Medicine 03/12/21 03/31/21 Rosalva Stephen MD [address] [place] [address] [id number] PCP - General Internal Medicine 04/01/21 documented as of this encounter
--- OUTSIDE RECORDS SUMMARY | 2025-10-10 10:59 | XMS_ITS | Encounter Summary ---
Author Organization [facility] Prior to 08/12/[address] [place] [address] Care Team Providers Care Print Project Manager Name Role Phone Sharla Gaytan, Frances DO Primary Care Pro vider Unavailable Milton Hummel Primary Care Provider Unav ailable Rj Lino MD Primary Care Provider Unava ilable Milton Hummel Primary Care Provider Unav ailable Sharla Westo, Frances DO Primary Care Pro vider Unavailable Rosalva Stephen MD Primary Care Provider [phone] Krakojob Coltwylao, Frances DO Primary Care Pro vider Unavailable Rosalva Stephen MD Primary Care Provider [phone] Encounter Details Date Type Department Care Team Description 10/26/2018 Pt. Non Urgent Medical Question Physiatry - [address] [address] Na Reardon MD [address] [place] [address] Dr [place] [phone] Social History Tobacco Use Types Packs/Day Years [...] Progress Notes * Susan Nielson M.A. - 10/26/2018 9:55 AM ESTFrom: Deb Malcolm To: Na Reardon MD Sent: 10/26/2018 9:14 AM EST Subject: [facility] info I just wanted to know if you received the information about generalized hypermobility syndrome fromthe CLEVE Ramey over at [facility]? 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 Per Karoline, diagnosing generalized hypermobility is done through the [employer] (simple tests we could do in the office if you wanted). I scored a 6 out of 9 when I was seen at [facility]. Could you please see if you can get that information from her and add that to my chart. Also I was diagnosed years ago before my first spinal fusion in 2010 with disk degenerative disease. 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 The nut cracker requested my medical record so that it may help my request to move down to [place] with my son, and other children. The nut cracker and the director alumni relations need to see everything I've been diagnosed with throughout the years in order to better understand my health issues and my need to move down to warmer weather. This frigid weather is horrible on my neck, back, shoulder, knee and both ankles. I am tired of being in pain and would like to decrease my pain and asa result, decrease my medications. Unfortunately, at this time I'm unable to do so. I was hoping toalready be in [place] by now. They need to understand that disk degenerative disease means it will worsen as I age, as noted by the increase in pain, 2nd spinal fusion, bone spurs in my spine and my inability to tolerate driving/sitting in a car for very long distances. I used to be able to drive from [place] to [place] back in 2011, 2012. By 2013, I absolutely could not tolerate the long drive. I had [facility] [employer] fax over my records from them to your office a few weeks ago. If it's not specifically written in there, you can speak with Karoline, or see my result on the [employer]oring System she performed. Thank you. documented in this encounter Plan of Treatment Not on file documented as of this encounter Visit Diagnoses Not on filedocumented in this encounter Care Teams Print Project Manager Relationship Specialty Start Date End Date Frances Sung DO PCP - General Internal Medicine 07/12/18 02/24/19 Milton Hummel PCP - General Internal Medicine 02/25/19 06/26/19 Rj Lino MD PCP - General Internal Medicine 06/27/19 07/05/19 Milton Hummel PCP - General Internal Medicine 07/06/19 08/04/19 Frances Sung DO PCP - General Internal Medicine 08/05/19 03/05/21 Rosalva Stephen MD [address] [place] [address] [id number] PCP - General Internal Medicine 03/06/21 03/11/21 Frances Sung DO PCP - General Internal Medicine 03/12/21 03/31/21 Rosalva Stephen MD [address] [place] [address] [id number] PCP - General Internal Medicine 04/01/21 documented as of this encounter
--- OUTSIDE RECORDS SUMMARY | 2025-10-10 10:59 | XMS_ITS | Encounter Summary ---
Author Organization [facility] Prior to 08/12/[address] [place] [address] Care Team Providers Care Closing Agent Name Role Phone Frances Sung DO Primary Care Pro vider Unavailable Rosalva Stephen MD Primary Care Provider [phone] Frances Sung DO Primary Care Pro vider Unavailable Rosalva Stephen MD Primary Care Provider [phone] Encounter Details Date Type Department Care Team Description 10/04/2020 Hospital Medical Records [address] [place] [address] Abstract, Provider Social History Tobacco Use Types [...] on filedocumented in this encounter Care Teams Closing Agent Relationship Specialty Start Date End Date Frances Sung DO PCP - General Internal Medicine 08/05/19 03/05/21 Rosalva Stephen MD [address] [place] [phone] PCP - General Internal Medicine 03/06/21 03/11/21 Frances Sung DO PCP - General Internal Medicine 03/12/21 03/31/21 Rosalva Stephen MD [address] [place] [address] [id number] PCP - General Internal Medicine 04/01/21 documented as of this encounter
--- OUTSIDE RECORDS SUMMARY | 2025-10-10 10:59 | XMS_ITS | Encounter Summary ---
Author Organization [facility] Prior to 08/12/[address] [place] [address] Care Team Providers Care Funeral Arrangement Director Name Role Phone Hector Morris MD Primary Care Provider Unavail able [facility] Primary Care Provider Unavailabl e Krakow[place] [...] Unavailable Rosalva Stephen MD Primary Care Provider [phone] [place] Colasacco, Frances DO Primary Care Pro vider Unavailable Rosalva Stephen MD Primary Care Provider [phone] Encounter Details Date Type Department Care Team Description 02/17/2014 Pt. Non Urgent Medic al Question Medicine/Pediatrics - [address] [phone] Hector Morris MD Social History Tobacco Use [...] copy of the echo report by the pharmacy affairs assistant. How can I go about obtaining that copy? documented in this encounter Plan of Treatment Not on file documented as of this encounter Visit Diagnoses Not on filedocumented in this encounter Care Teams Funeral Arrangement Director Relationship Specialty Start Date End Date Hector Morris MD PCP - General Internal Medicine 10/18/13 01/31/16 [facility] [place] [place] PCP - General Internal Medicine 02/01/16 02/11/16 [...] Medicine 08/05/19 03/05/21 Rosalva Stephen MD [address] [place] [address] PCP - General Internal Medicine 03/06/21 03/11/21 Frances Sung, DO PCP - General Internal Medicine 03/12/21 03/31/21 Rosalva Stephen MD [address] [place] [address] PCP - General Internal Medicine 04/01/21 documented as of this encounter
--- OUTSIDE RECORDS SUMMARY | 2025-10-10 10:59 | XMS_ITS | Encounter Summary ---
Author Organization [facility] Prior to 08/12/[address] [place] [address] Care Team Providers Care Destaticizer Feeder Name Role Phone Frances Sung DO Primary Care Pro vider Unavailable Rosalva Stephen MD Primary Care Provider [phone] Frances Sung DO Primary Care Pro vider Unavailable Rosalva Stephen MD Primary Care Provider [phone] Encounter Details Date Type Department Care Team Description 08/18/2019 Refill Physiatry - [address] [address] Na Reardon MD [address] [place] [address] Dr CHI [place] [id number] Social History Tobacco Use Types Packs/Day Years [...] Telephone Encounter - Elizabeth Crowe M.A. - 08/18/2019 2:16 PM EST Rx placed in Physiatry ppu * Telephone Encounter - Na Reardon MD - 08/18/2019 12:44 PM EST MassPAT report reviewed today for Deb Malcolm * Telephone Encounter - Elizabeth Crowe M.A. - 08/18/2019 8:31 AM EST Last refill 07/20/19 Next ov 08/25/19 Last ov 05/27/19 Lab Results Component Value Date URBENZO NONE DETECTED 07/06/2019 UROPIATES POSITIVE 07/06/2019 URBARBITUATE NONE DETECTED 07/06/2019 PAINAMPHETAM POSITIVE 07/06/2019 URAMPHETAMIN POSITIVE 10/01/2018 PAINCOCAINE NONE DETECTED 07/06/2019 URCOCAINE NEGATIVE 10/01/2018 PAINCANNABIN POSITIVE 07/06/2019 URMARIJUANA NEGATIVE 10/01/2018 Contracted MassPAT documented in this encounter Plan of Treatment Not on file documented as of this encounter Visit Diagnoses Diagnosis Chronic left shoulder pain Pain in joint, shoulder region History of cervical spinal surgery Personal history of surgery to other organs Chronic pain of right knee documented in this encounter Care Teams Destaticizer Feeder Relationship Specialty Start Date End Date Frances Sung DO PCP - General Internal Medicine 08/05/19 03/05/21 Rosalva Stephen MD [address] [place] [address] PCP - General Internal Medicine 03/06/21 03/11/21 Frances Sung DO PCP - General Internal Medicine 03/12/21 03/31/21 Rosalva Stephen MD [address] [place] [address] PCP - General Internal Medicine 04/01/21 documented as of this encounter
--- OUTSIDE RECORDS SUMMARY | 2025-10-10 10:59 | XMS_ITS | Encounter Summary ---
Author Organization [facility] Prior to 08/12/[address] [place] [address] Care Team Providers Care Slab Grinder Name Role Phone Rosalva Stephen MD Primary Care Provider [phone] Encounter Details Date Type Department Care Team Description 01/03/2022 Hospital Medical Records [address] [place] [address] Saeed Delong Social History Tobacco Use Types [...] on filedocumented in this encounter Care Teams Slab Grinder Relationship Specialty Start Date End Date Roslava Stephen MD [address] [place], [place] [phone] PCP - General Internal Medicine 04/01/21 documented as of this encounter
--- OUTSIDE RECORDS SUMMARY | 2025-10-10 10:59 | XMS_ITS | Encounter Summary ---
Author Organization [facility] Prior to 08/12/[address] [place] [address] Care Team Providers Care Gleason Gear Generator Name Role Phone Rosalva Stephen MD Primary Care Provider [phone] Encounter Details Date Type Department Care Team Description 01/15/2022 Pt. Non Urgent Medical Question Adult Medicine [address] [phone] Rosalva Stephen MD [address] [place] [address] [id number] Social History Tobacco Use Types Packs/Day Years [...] link if you don't already have it: https://www.[employer]gov/how-to/request- ksitnjoojpiuhd-edz-y-member documented in this encounter Plan of Treatment Not on file documented as of this encounter Visit Diagnoses Not on filedocumented in this encounter Care Teams Gleason Gear Generator Relationship Specialty Start Date End Date Rosalva Stephen MD [address] [place] [address] PCP - General Internal Medicine 04/01/21 documented as of this encounter
--- OUTSIDE RECORDS SUMMARY | 2025-10-10 10:59 | XMS_ITS | Encounter Summary ---
Author Organization [facility] Prior to 08/12/[address] [place] [address] Care Team Providers Care Dental Instrument Maker Name Role Phone Frances Sung DO Primary Care Pro vider Unavailable Rosalva Stephen MD Primary Care Provider [phone] Frances Sung DO Primary Care Pro vider Unavailable Rosalva Stephen MD Primary Care Provider [phone] Reason for Visit * Reason Onset Date Comments REFERRAL 09/12/2020 Encounter Details Date Type Department Care Team Description 09/12/2020 Pt. Non Urgent Medic al Question Adult Medicine [address] [address] Frances Sung DO Social History Tobacco Use [...] Telephone Encounter - Caity Hernandez M.A. - 09/12/2020 4:02 PM ESTFrom: Deb Malcolm To: Frances Gaytan DO Sent: 09/12/2020 3:35 PM EST Subject: EDS Society Hi. I'm at [facility] and they asked why I'm not seeing someone in [place] for my hEDS. Would you be able to refer me to Dr. Pisano out of [place]? He's part of the EDS Society and could be really helpful. documented in this encounter Plan of Treatment Not on file documented as of this encounter Visit Diagnoses Not on filedocumented in this encounter Care Teams Dental Instrument Maker Relationship Specialty Start Date End Date Frances Sung DO PCP - General Internal Medicine 08/05/19 03/05/21 Rosalva Stephen MD [address] [place] [address] [id number] PCP - General Internal Medicine 03/06/21 03/11/21 Frances Sung DO PCP - General Internal Medicine 03/12/21 03/31/21 Rosalva Stephen MD [address] [place] [address] [id number] PCP - General Internal Medicine 04/01/21 documented as of this encounter
--- OUTSIDE RECORDS SUMMARY | 2025-10-10 10:59 | XMS_ITS | Encounter Summary ---
Author Organization [facility] Prior to 08/12/[address] [place] [address] Care Team Providers Care Kindergarten Prep Teacher Name Role Phone Rosalva Stephen MD Primary Care Provider [phone] Reason for Visit * Reason Onset Date Comments APPOINTMENT 01/08/2022 Encounter Details Date Type Department Care Team Description 01/08/2022 Telephone Adult Medicine [facility] [address] [place] [address] Rosalva Stephen MD [address] [place] [address] APPOINTMENT Social History Tobacco Use Types Packs/Day [...] on filedocumented in this encounter Care Teams Kindergarten Prep Teacher Relationship Specialty Start Date End Date Rosalva Stephen MD [address] [place] [id number] PCP - General Internal Medicine 04/01/21 documented as of this encounter
--- OUTSIDE RECORDS SUMMARY | 2025-10-10 10:59 | XMS_ITS | Encounter Summary ---
Author Organization [facility] Prior to 08/12/[address] [place] [address] Care Team Providers Care Manager Long Term Care Name Role Phone Sharla Gaytan, Frances DO Primary Care Pro vider Unavailable Milton Hummel Primary Care Provider Unav ailable Rj Lino MD Primary Care Provider Unava ilable Milton Hummel Primary Care Provider Unav ailable Sharla Westo, Frances DO Primary Care Pro vider Unavailable Rosalva Stephen MD Primary Care Provider [phone] Krakojob Coltwylao, Frances DO Primary Care Pro vider Unavailable Rosalva Stephen MD Primary Care Provider [phone] Encounter Details Date Type Department Care Team Description 09/05/2018 Pt. Non Urgent Medical Question Physiatry - [address] [address] Na Reardon MD [address] [place] [address] Dr ARTI [place] [id number] Social History Tobacco Use Types Packs/Day Years [...] filedocumented in this encounter Care Teams Manager Long Term Care Relationship Specialty Start Date End Date Frances Sung DO PCP - General Internal Medicine 07/12/18 02/24/19 Milton Hummel PCP - General Internal Medicine 02/25/19 06/26/19 Rj Lino MD PCP - General Internal Medicine 06/27/19 07/05/19 Milton Hummel PCP - General Internal Medicine 07/06/19 08/04/19 Frances Sung DO PCP - General Internal Medicine 08/05/19 03/05/21 Rosalva Stephen MD [address] [place] [address] PCP - General Internal Medicine 03/06/21 03/11/21 Frances Sung DO PCP - General Internal Medicine 03/12/21 03/31/21 Rosalva Stephen MD [address] [place] [address] PCP - General Internal Medicine 04/01/21 documented as of this encounter
--- OUTSIDE RECORDS SUMMARY | 2025-10-10 10:59 | XMS_ITS | Encounter Summary ---
Author Organization [facility] Prior to 08/12/[address] [place] [address] Care Team Providers Care Nanny Babysitter Name Role Phone Frances Sung DO Primary Care Pro vider Unavailable Rosalva Stephen MD Primary Care Provider [phone] Frances Sung DO Primary Care Pro vider Unavailable Rosalva Stephen MD Primary Care Provider [phone] Encounter Details Date Type Department Care Team Description 10/12/2019 Refill Physiatry - [address] [address] Na Reardon MD [address] [place] [address] Dr CHI [place] [id number] Social History Tobacco Use Types Packs/Day Years [...] knee documented in this encounter Care Teams Nanny Babysitter Relationship Specialty Start Date End Date Frances Sung DO PCP - General Internal Medicine 08/05/19 03/05/21 Rosalva Stephen MD [address] [place] [address] PCP - General Internal Medicine 03/06/21 03/11/21 Frances Sung DO PCP - General Internal Medicine 03/12/21 03/31/21 Rosalva Stephen MD [address] [place] [address] PCP - General Internal Medicine 04/01/21 documented as of this encounter
--- OUTSIDE RECORDS SUMMARY | 2025-10-10 10:59 | XMS_ITS | Encounter Summary ---
Demographics Address [address] [place] [address] Mobile Phone Email Address [email or web address] Email Address [email or web address] Preferred Language Nigerian Marital Status Unknown Yarsani Affiliation Unknown Race White Ethnic Group or Author Organization [facility] Prior to 08/12/[address] [place] [address] Care Team Providers Care Suture Gauger Name Role Phone Rosalva Stephen MD Primary Care Provider [phone] Encounter Details Date Type Department Care Team Description 01/15/2022 Pt. Referral Request [facility] Jamey [address] [place] [address] [phone] Md Jamey Social History Tobacco Use Types [...] on filedocumented in this encounter Care Teams Suture Gauger Relationship Specialty Start Date End Date Rosalva Stephen MD [address] [place] [address] [id number] PCP - General Internal Medicine 04/01/21 documented as of this encounter
--- OUTSIDE RECORDS SUMMARY | 2025-10-10 10:59 | XMS_ITS | Encounter Summary ---
Author Organization [facility] Prior to 08/12/[address] [place] [address] Care Team Providers Care Solar Power Installer Name Role Phone Sharla Gaytan, Frances DO Primary Care Pro vider Unavailable Milton Hummel Primary Care Provider Unav ailRj Pyle MD Primary Care Provider Unava ilable Milton Hummel Primary Care Provider Unav ailable Sharla Westo, Frances DO Primary Care Pro vider Unavailable Rosalva Stephen MD Primary Care Provider [phone] Sharla Coltwylao, Frances DO Primary Care Pro vider Unavailable Rosalva Stephen MD Primary Care Provider [phone] Encounter Details Date Type Department Care Team Description 10/06/2018 Refill Physiatry - [address] [address] Na Reardon MD [address] [place] [address] Dr CHI W[place] [id number] Social History Tobacco Use Types Packs/Day Years [...] knee documented in this encounter Care Teams Solar Power Installer Relationship Specialty Start Date End Date Frances Sung DO PCP - General Internal Medicine 07/12/18 02/24/19 Milton Hummel PCP - General Internal Medicine 02/25/19 06/26/19 Rj Lino MD PCP - General Internal Medicine 06/27/19 07/05/19 Milton Hummel PCP - General Internal Medicine 07/06/19 08/04/19 Frances Sung DO PCP - General Internal Medicine 08/05/19 03/05/21 Rosalva Stephen MD [address] [place] [address] PCP - General Internal Medicine 03/06/21 03/11/21 Frances Sung DO PCP - General Internal Medicine 03/12/21 03/31/21 Rosalva Stephen MD [address] [place] [address] PCP - General Internal Medicine 04/01/21 documented as of this encounter
--- OUTSIDE RECORDS SUMMARY | 2025-10-10 10:59 | XMS_ITS | Encounter Summary ---
Author Organization [facility] Prior to 08/12/[address] [place] [address] Care Team Providers Care Ophthalmic Tech Name Role Phone Sharla Gaytan, Frances DO Primary Care Pro vider Unavailable Milton Hummel Primary Care Provider Unav ailable Rj Lino MD Primary Care Provider Unava ilable Milton Hummel Primary Care Provider Unav ailable Sharla Westo, Frances DO Primary Care Pro vider Unavailable Rosalva Stephen MD Primary Care Provider [phone] Krakojob Coltwylao, Frances DO Primary Care Pro vider Unavailable Rosalva Stephen MD Primary Care Provider [phone] Encounter Details Date Type Department Care Team Description 08/29/2018 Pt. Non Urgent Medical Question Physiatry - [address] [address] Na Reardon MD [address] [place] [address] Dr ARTI [place] [id number] Social History Tobacco Use Types Packs/Day Years [...] Subject: ER I called my mother from [place] and she drove up to watch my son while I went to the [facility]. I made them aware I see a substation operator apprentice. They prescribed me 5mg oxycodone q6h prn, 10 tablets. I wanted to let you know as soon as they did. documented in this encounter Plan of Treatment Not on file documented as of this encounter Visit Diagnoses Not on filedocumented in this encounter Care Teams Ophthalmic Tech Relationship Specialty Start Date End Date Frances Sung DO PCP - General Internal Medicine 07/12/18 02/24/19 Milton Hummel PCP - General Internal Medicine 02/25/19 06/26/19 Rj Lino MD PCP - General Internal Medicine 06/27/19 07/05/19 Miltno Hummel PCP - General Internal Medicine 07/06/19 08/04/19 Frances Sung DO PCP - General Internal Medicine 08/05/19 03/05/21 Rosalva Stephen MD [address] [place] [address] PCP - General Internal Medicine 03/06/21 03/11/21 Frances Sung DO PCP - General Internal Medicine 03/12/21 03/31/21 Rosalva Stephen MD [address] [place] [address] PCP - General Internal Medicine 04/01/21 documented as of this encounter
--- OUTSIDE RECORDS SUMMARY | 2025-10-10 10:59 | XMS_ITS | Encounter Summary ---
Author Organization [facility] Prior to 08/12/[address] [place] [address] Care Team Providers Care Insurance Counselor Name Role Phone Rosalva Stephen MD Primary Care Provider [phone] Encounter Details Date Type Department Care Team Description 01/14/2022 Pt. Referral Request [facility] Jamey [address] [place] [address] [phone] Md Jamey Social History Tobacco Use Types [...] filedocumented in this encounter Care Teams Insurance Counselor Relationship Specialty Start Date End Date Rosalva Stephen MD [address] [place] [address] [phone] PCP - General Internal Medicine 04/01/21 documented as of this encounter
--- OUTSIDE RECORDS SUMMARY | 2025-10-10 10:59 | XMS_ITS | Encounter Summary ---
Author Organization [facility] Prior to 08/12/[address] [place] [address] Care Team Providers Care Rug Shampooer Name Role Phone Frances Sung DO Primary Care Pro vider Unavailable Rosalva Stephen MD Primary Care Provider [phone] Frances Sung DO Primary Care Pro vider Unavailable Rosalva Stephen MD Primary Care Provider [phone] Encounter Details Date Type Department Care Team Description [facility] [address] [address] Na Reardon MD [address] [place] [address] Dr CHI [place] [id number] Social History Tobacco Use Types Packs/Day Years [...] knee documented in this encounter Care Teams Rug Shampooer Relationship Specialty Start Date End Date Frances Sung DO PCP - General Internal Medicine 08/05/19 03/05/21 Rosalva Stephen MD [address] [place] [address] PCP - General Internal Medicine 03/06/21 03/11/21 Frances Sung DO PCP - General Internal Medicine 03/12/21 03/31/21 Rosalva Stephen MD [address] [place] [address] PCP - General Internal Medicine 04/01/21 documented as of this encounter
--- OUTSIDE RECORDS SUMMARY | 2025-10-10 10:59 | XMS_ITS | Encounter Summary ---
Author Organization [facility] Prior to 08/12/[address] [place] [address] Care Team Providers Care Carbon Sequestration Plant Operator Name Role Phone Milton Hummel Primary Care Provider Unav ailable Rj Lino MD Primary Care Provider Unava ilable Milton Hummel Primary Care Provider Unav ailable [place] Colasacco, Frances DO Primary Care Pro vider Unavailable Rosalva Stephen MD Primary Care Provider [phone] [place] Colasacco, Frances DO Primary Care Pro vider Unavailable Rosalva Stephen MD Primary Care Provider [phone] Encounter Details Date Type Department Care Team Description 06/23/2019 Refill Physiatry - [address] [address] Na Reardon MD [address] [place] [address] Dr CHI [place] [id number] Social History Tobacco Use Types Packs/Day Years [...] per tablet [Na Reardon MD] Preferred pharmacy: [facility] [place] [address] GARZA Comment: Would like to be able to pick pulling machine tender my prescription tomorrow morning please. Thank you. documented in this encounter Plan of Treatment Not on file documented as of this encounter Visit Diagnoses Diagnosis Chronic left shoulder pain Pain in joint, shoulder region History of cervical spinal surgery Personal history of surgery to other organs Chronic pain of right knee documented in this encounter Care Teams Carbon Sequestration Plant Operator Relationship Specialty Start Date End Date Milton Hummel PCP - General Internal Medicine 02/25/19 06/26/19 Rj Lino MD PCP - General Internal Medicine 06/27/19 07/05/19 Milton Hummel PCP - General Internal Medicine 07/06/19 08/04/19 Frances Sung DO PCP - General Internal Medicine 08/05/19 03/05/21 Rosalva Stephen MD [address] [place] [address] PCP - General Internal Medicine 03/06/21 03/11/21 Frances Sung DO PCP - General Internal Medicine 03/12/21 03/31/21 Rosalva Stephen MD [address] [place], [place] [phone] PCP - General Internal Medicine 04/01/21 documented as of this encounter
--- OUTSIDE RECORDS SUMMARY | 2025-10-10 10:59 | XMS_ITS | Encounter Summary ---
Author Organization [facility] Prior to 08/12/[address] [place] [address] Care Team Providers Care In Home Nanny Name Role Phone Frances Sung DO Primary Care Pro vider Unavailable Rosalva Stephen MD Primary Care Provider [phone] Frances Sung DO Primary Care Pro vider Unavailable Rosalva Stephen MD Primary Care Provider [phone] Reason for Referral * EXTERNAL (Routine) - Authorized/Booked Specialty Diagnoses / Procedures Referred By Hector biggs Referred To Contact COOK SHORT ORDER / Genetics Diagnoses EDS (Juan-Danlos syndrome) Procedures REFERRAL TO ADULT GENETICS Frances Sung DO [address] [place] [address] External Genetics Referral ID Status Reason Start Date Expiration Date V isits Requested Visits Authorized SEE NOTE Authorized/B ooked 10/02/2020 01/16/2021 1 1 Reason for Visit * Reason Onset Date Comments Insole Rounder Feedback 09/25/2020 Dr. Edison Hughes y Encounter Details Date Type Department Care Team Description 09/25/2020 Telephone Adult Medicine [address] [phone] Frances Sung DO Insole Rounder Feedback (Dr. Edison Watson) Social History Tobacco [...] syndrome documented in this encounter Care Teams In Home Nanny Relationship Specialty Start Date End Date Frances Sung DO PCP - General Internal Medicine 08/05/19 03/05/21 Rosalva Stephen MD [address] [place] [address] PCP - General Internal Medicine 03/06/21 03/11/21 Frances Sung DO PCP - General Internal Medicine 03/12/21 03/31/21 Rosalva Stephen MD [address] [place] [address] PCP - General Internal Medicine 04/01/21 documented as of this encounter
--- OUTSIDE RECORDS SUMMARY | 2025-10-10 10:59 | XMS_ITS | Encounter Summary ---
Author Organization [facility] Prior to 08/12/[address] [place] [address] Care Team Providers Care Pharmacy Innovation Assistant Name Role Phone Frances Sung DO Primary Care Pro vider Unavailable Rosalva Stephen MD Primary Care Provider [phone] Frances Sung DO Primary Care Pro vider Unavailable Rosalva Stephen MD Primary Care Provider [phone] Encounter Details Date Type Department Care Team Description 08/22/2019 [facility] Medical Records [address] [place] [address] Abstract, Provider Social History Tobacco Use Types [...] on filedocumented in this encounter Care Teams Pharmacy Innovation Assistant Relationship Specialty Start Date End Date Frances Sung DO PCP - General Internal Medicine 08/05/19 03/05/21 Rosalva Stephen MD [address] [place] [address] [phone] PCP - General Internal Medicine 03/06/21 03/11/21 Frances Sung DO PCP - General Internal Medicine 03/12/21 03/31/21 Rosalva Stephen MD [address] [place] [address] PCP - General Internal Medicine 04/01/21 documented as of this encounter
--- OUTSIDE RECORDS SUMMARY | 2025-10-10 10:59 | XMS_ITS | Encounter Summary ---
Author Organization [facility] Prior to 08/12/[address] [place] [address] Care Team Providers Care Day Light Relief Operator Name Role Phone Frances Sung DO Primary Care Pro vider Unavailable Rosalva Stephen MD Primary Care Provider Frances Sung DO Primary Care Pro vider Unavailable Rosalva Stephen MD Primary Care Provider [phone] Reason for Visit * Reason Onset Date Comments Faxed Order 10/10/2020 Encounter Details Date Type Department Care Team Description 10/10/2020 Telephone Adult [address] [address] Frances Sung DO Faxed Order Social History [...] encounter Miscellaneous Notes * Telephone Encounter - Christianoalberto Brayan - 10/25/2020 10:04 AM EST Additional orders from [facility] Care to be signed and faxed back to [phone] * Telephone Encounter - Imelda Almaguer - 10/10/2020 9:40 AM EST [facility] IS FAXING ORDERS TO BE SIGN AND FAX BACK TO [phone]. documented in this encounter Plan of Treatment Not on file documented as of this encounter Visit Diagnoses Not on filedocumented in this encounter Care Teams Day Light Relief Operator Relationship Specialty Start Date End Date Frances Sung DO PCP - General Internal Medicine 08/05/19 03/05/21 Rosalva Stephen MD [address] [place] [address] [phone] PCP - General Internal Medicine 03/06/21 03/11/21 Frances Sung DO PCP - General Internal Medicine 03/12/21 03/31/21 Rosalva Stephen MD [address] [place] [address] [phone] PCP - General Internal Medicine 04/01/21 documented as of this encounter
--- OUTSIDE RECORDS SUMMARY | 2025-10-10 10:59 | XMS_ITS | Encounter Summary ---
Author Organization Formerly [facility] Prior to 08/12/[address] [place] [address] Care Team Providers Care Venetian Blind Cleaner Name Role Phone Frances Sung DO Primary Care Pro vider Unavailable Rosalva Stephen MD Primary Care Provider [phone] Frances Sung DO Primary Care Pro vider Unavailable Rosalva Stephen MD Primary Care Provider [phone] Encounter Details Date Type Department Care Team Description 09/24/2020 Pt. Non Urgent Medic al Question Adult Medicine [address] [address] Frances Sung DO Social History Tobacco Use [...] [facility] [address] [facility] [address] [place] [address] [email or web address] [phone] [email or web address] Dr. Edison Pisano specializes in the evaluation, [...] surgeon that is familiar with hEDS (the [place] hip doctor Fernie stated that she would like to send me to a hip surgeon that works with EDS patients). documented in this encounter Plan of Treatment Not on file documented as of this encounter Visit Diagnoses Not on filedocumented in this encounter Care Teams Venetian Blind Cleaner Relationship Specialty Start Date End Date Frances Sung DO PCP - General Internal Medicine 08/05/19 03/05/21 Rosalva Stephen MD [address] [place] [address] PCP - General Internal Medicine 03/06/21 03/11/21 Frances Sung DO PCP - General Internal Medicine 03/12/21 03/31/21 Rosalva Stephen MD [address] [place] [address] [id number] PCP - General Internal Medicine 04/01/21 documented as of this encounter
--- OUTSIDE RECORDS SUMMARY | 2025-10-10 10:59 | XMS_ITS | Encounter Summary ---
Author Organization [facility] Prior to 08/12/[address] [place] [address] Care Team Providers Care Cdl Bulk Driver Name Role Phone Frances Sung DO Primary Care Pro vider Unavailable Rosalva Stephen MD Primary Care Provider [phone] Frances Sung DO Primary Care Pro vider Unavailable Rosalva Stephen MD Primary Care Provider [phone] Encounter Details Date Type Department Care Team Description 09/24/2020 Pt. Non Urgent Medical Question Rheumatology - [address] [address] Loyd Langston PA Social History Tobacco Use [...] on filedocumented in this encounter Care Teams Cdl Bulk Driver Relationship Specialty Start Date End Date Frances Sung DO PCP - General Internal Medicine 08/05/19 03/05/21 Rosalva Stephen MD [address] [place] [address] [id number] PCP - General Internal Medicine 03/06/21 03/11/21 Frances Sung DO PCP - General Internal Medicine 03/12/21 03/31/21 Rosalva Stephen MD [address] [place] [address] [id number] PCP - General Internal Medicine 04/01/21 documented as of this encounter
--- OUTSIDE RECORDS SUMMARY | 2025-10-10 10:59 | XMS_ITS | Encounter Summary ---
Author Organization [facility] Prior to 08/12/[address] [place] [address] Care Team Providers Care Business Asst Name Role Phone Sharla Gaytan, Frances DO Primary Care Pro vider Unavailable Milton Hummel Primary Care Provider Unav ailRj Pyle MD Primary Care Provider Unava ilable Milton Hummel Primary Care Provider Unav ailable Sharla Issacco, Frances DO Primary Care Pro vider Unavailable Rosalva Stephen MD Primary Care Provider [phone] Krakojob Coltwylao, Frances DO Primary Care Pro vider Unavailable Rosalva Stephen MD Primary Care Provider [phone] Reason for Visit * Reason Onset Date Comments Provider Call Back 09/07/2018 Encounter Details Date Type Department Care Team Description 09/07/2018 Telephone Physiatry - [address] [id number] Na Reardon MD [address] [place] [address] [place] [address] Provider Call Back Social History Tobacco [...] encounter Miscellaneous Notes * Telephone Encounter - Ludivina Landon - 09/07/2018 9:39 AM EST Caller requesting call back from provider: Reason for call back: Patient calling requesting to speak to Elizabeth regarding the MyChart messages Caller offered to speak with the nurse for assistance: YES Response: Patient offered to speak with nurse for assistance and patient agreed. Message forwarded to nurse. documented in this encounter Plan of Treatment Not on file documented as of this encounter Visit Diagnoses Not on filedocumented in this encounter Care Teams Business Asst Relationship Specialty Start Date End Date Frances Sung DO PCP - General Internal Medicine 07/12/18 02/24/19 Milton Hummel PCP - General Internal Medicine 02/25/19 06/26/19 Rj Lino MD PCP - General Internal Medicine 06/27/19 07/05/19 Milton Hummel PCP - General Internal Medicine 07/06/19 08/04/19 Frances Sung DO PCP - General Internal Medicine 08/05/19 03/05/21 Rosalva Stephen MD [address] [place] [address] PCP - General Internal Medicine 03/06/21 03/11/21 Frances Sung DO PCP - General Internal Medicine 03/12/21 03/31/21 Rosalva Stephen MD [address] [place] [address] PCP - General Internal Medicine 04/01/21 documented as of this encounter
--- OUTSIDE RECORDS SUMMARY | 2025-10-10 10:59 | XMS_ITS | Encounter Summary ---
Author Organization [facility] Prior to 08/12/[address] [place] [address] Care Team Providers Care Motel Front Desk Clerk Name Role Phone Rosalva Stephen MD Primary Care Provider [phone] Encounter Details Date Type Department Care Team Description 01/10/2022 Pt. Referral Request [facility] Jamey [address] [place] [address] [phone] Md Jamey Social History Tobacco Use Types [...] on filedocumented in this encounter Care Teams Motel Front Desk Clerk Relationship Specialty Start Date End Date Rosalva Stephen MD [address] [place] [address] [id number] PCP - General Internal Medicine 04/01/21 documented as of this encounter
--- OUTSIDE RECORDS SUMMARY | 2025-10-10 10:59 | XMS_ITS | Encounter Summary ---
Author Organization [facility] Prior to 08/12/[address] [place] [address] Care Team Providers Care Bullet Lubricant Mixer Name Role Phone Rosalva Stephen MD Primary Care Provider [phone] Encounter Details Date Type Department Care Team Description 02/14/2022 Pt. Non Urgent Medical Question Adult Medicine [address] [phone] Rosalva Stephen MD [address] [place] [address] [phone] Social History Tobacco Use Types Packs/Day Years [...] Stephen Sent: 02/14/2022 9:22 AM EDT Subject: Special Delivery Messenger referral I haven???t heard from Dr Crowley. Is there any way to send a referral to [facility] in [place] (I believe they are the closest ones to me)? documented in this encounter Plan of Treatment Not on file documented as of this encounter Visit Diagnoses Not on filedocumented in this encounter Care Teams Bullet Lubricant Mixer Relationship Specialty Start Date End Date Rosalva Stephen MD [address] [place] [address] PCP - General Internal Medicine 04/01/21 documented as of this encounter
--- OUTSIDE RECORDS SUMMARY | 2025-10-10 10:59 | XMS_ITS | Encounter Summary ---
Author Organization [facility] Prior to 08/12/[address] [place] [address] Care Team Providers Care Gathering Machine Setter Name Role Phone Sharla Gaytan, Frances DO Primary Care Pro vider Unavailable Milton Hummel Primary Care Provider Unav ailable Rj Lino MD Primary Care Provider Unava ilable Milton Hummel Primary Care Provider Unav ailable Sharla Colpriyankacco, Frances DO Primary Care Pro vider Unavailable Rosalva Stephen MD Primary Care Provider [phone] Krakojob Coltwylao, Frances DO Primary Care Pro vider Unavailable Rosalva Stephen MD Primary Care Provider [phone] Encounter Details Date Type Department Care Team Description 11/04/2018 Refill Physiatry - [address] [address] Na Reardon MD [address] [place] [address] Dr [facility] [place] [id number] Social History Tobacco Use Types Packs/Day Years [...] 11:12 AM EST FYI: I confirmed with [facility] and they did not fill the script of 10/08/18 Pharmacist confirmed that it was filled at [facility] in [facility]. * Telephone Encounter - Na Reardon MD - 11/04/2018 11:43 AM EST FYI to Dr. Magdaleno * Telephone Encounter - Susan Nielson M.A. - 11/04/2018 10:45 AM EST Patient is aware of Message from Dr Reardon. Message was read to her Word for word. Patient states she would like to use [facility]. Patient states she has been staying on weekends with her mom in [facility] and questioned if thiswould cause any violation. I told patient that as long as she followed her contract, that this is not a violation. She is aware that if we call for a random drug screen or pill count then she will need to comply with her contract. Patient is aware that when she comes to fruit or nut picker the script that she will need to [...] this prescription. Thanks. * Telephone Encounter - Susan Nielson M.A. - 11/04/2018 9:32 AM EST I spoke with Liliam at [facility]. She states her computer system reports patients lastrefill on 10/08/19 at an outside location. She said they only have phone number of pharmacy. I called and Yael at this # states that a script was filled on 10/08/19 and They are Located on [address] [place] [place] [address] in [facility]. [facility] does not include [place] * Telephone Encounter - Na Reardon MD [...] 02/19/2017 * Telephone Encounter - Alyssa Lyon L.P.N. - 11/04/2018 7:26 AM ESTFrom: Deb Malcolm To: Na Reardon MD Sent: 11/04/2018 6:26 AM EST Subject: Medication Renewal Request Original authorizing provider: MD Deb Gomes would like a refill of the following medications: oxycodone-acetaminophen (PERCOCET) 5-325 MG per tablet [Na Reardon MD] Preferred pharmacy: [id number] AT [facility] Comment: pickup documented in this encounter Plan of Treatment Not on file documented as of this encounter Visit Diagnoses Diagnosis Chronic left shoulder pain Pain in joint, shoulder region History of cervical spinal surgery Personal history of surgery to other organs Chronic pain of right knee documented in this encounter Care Teams Gathering Machine Setter Relationship Specialty Start Date End Date Frances Sung DO PCP - General Internal Medicine 07/12/18 02/24/19 Milton Hummel PCP - General Internal Medicine 02/25/19 06/26/19 Rj Lino MD PCP - General Internal Medicine 06/27/19 07/05/19 Milton Hummel PCP - General Internal Medicine 07/06/19 08/04/19 Frances Sung DO PCP - General Internal Medicine 08/05/19 03/05/21 Rosalva Stephen MD [address] [place] [address] PCP - General Internal Medicine 03/06/21 03/11/21 Frances Sung DO PCP - General Internal Medicine 03/12/21 03/31/21 Rosalva Stephen MD [address] [place] [address] PCP - General Internal Medicine 04/01/21 documented as of this encounter
--- OUTSIDE RECORDS SUMMARY | 2025-10-10 10:59 | XMS_ITS | Encounter Summary ---
Author Organization [facility] Prior to 08/12/[address] [place] [address] Care Team Providers Care Forming Machine Operator Name Role Phone Hector Morris MD Primary Care Provider Unavail able [facility], [facility] Primary Care Provider Unavailabl e [...] Unavailable Rosalva Stephen MD Primary Care Provider [phone] [place] Colasacco, Frances DO Primary Care Pro vider Unavailable Rosalva Stephen MD Primary Care Provider [phone] Encounter Details Date Type Department Care Team Description 12/14/2013 Orders Only Medicine/Pediatrics - [address] [phone] Hector Morris MD Dizziness and giddiness (Primary [...] AM EST Hector Morris MD [facility] documented in this encounter Visit Diagnoses Diagnosis Dizziness and giddiness- Primary documented in this encounter Care Teams Forming Machine Operator Relationship Specialty Start Date End Date Hector Morris MD PCP - General Internal Medicine 10/18/13 01/31/16 [facility], [facility] PCP - General Internal Medicine [...] Medicine 08/05/19 03/05/21 Rosalva Stephen MD [address] [place] [address] PCP - General Internal Medicine 03/06/21 03/11/21 Frances Sung DO PCP - General Internal Medicine 03/12/21 03/31/21 Rosalva Stephen MD [address] [place] [address] PCP - General Internal Medicine 04/01/21 documented as of this encounter
--- OUTSIDE RECORDS SUMMARY | 2025-10-10 10:59 | XMS_ITS | Encounter Summary ---
Author Organization [facility] Prior to 08/12/[address] [place] [address] Care Team Providers Care Fur Dressing Supervisor Name Role Phone Frances Sung DO Primary Care Pro vider Unavailable Milton Hummel Primary Care Provider Unav ailable Rj Lino MD Primary Care Provider Unava ilable Milton Hummel Primary Care Provider Unav ailable Sharla Gaytan, Frances DO Primary Care Pro vider Unavailable Rosalva Stephen MD Primary Care Provider [phone] Frances Sung DO Primary Care Pro vider Unavailable Rosalva Stephen MD Primary Care Provider [phone] Encounter Details Date Type Department Care Team Description 09/05/2018 Pt. Non Urgent Medic al Question Physiatry - [address] [address] Alejandro William PA-C Social History Tobacco Use [...] on filedocumented in this encounter Care Teams Fur Dressing Supervisor Relationship Specialty Start Date End Date Anup Sungla, PCP - General Internal Medicine 07/12/18 02/24/19 Milton Hummel PCP - General Internal Medicine 02/25/19 06/26/19 Rj Lino MD PCP - General Internal Medicine 06/27/19 07/05/19 Milton Hummel PCP - General Internal Medicine 07/06/19 08/04/19 Frances Sung, DO PCP - General Internal Medicine 08/05/19 03/05/21 Rosalva Stephen MD [address] [place] [address] PCP - General Internal Medicine 03/06/21 03/11/21 Frances Sung, PCP - General Internal Medicine 03/12/21 03/31/21 Roaslva Stephen MD [address] [place] [address] PCP - General Internal Medicine 04/01/21 documented as of this encounter
--- OUTSIDE RECORDS SUMMARY | 2025-10-10 10:59 | XMS_ITS | Encounter Summary ---
Author Organization [facility] Prior to 08/12/[address] [place] [address] Care Team Providers Care Magnetic Prospecting Operator Name Role Phone Frances Sung DO Primary Care Pro vider Unavailable Rosalva Stephen MD Primary Care Provider [phone] Frances Sung DO Primary Care Pro vider Unavailable Rosalva Stephen MD Primary Care Provider [phone] Encounter Details Date Type Department Care Team Description 10/12/2019 Refill OBGYN - [facility] [address] [place] [address] Jeannine Ruelas, [facility] [address] [place] [address] Social History Tobacco Use Types Packs/Day Years [...] on filedocumented in this encounter Care Teams Magnetic Prospecting Operator Relationship Specialty Start Date End Date Frances Sung DO PCP - General Internal Medicine 08/05/19 03/05/21 Rosalva Stephen MD [address] [place] [address] [phone] PCP - General Internal Medicine 03/06/21 03/11/21 Frances Sung DO PCP - General Internal Medicine 03/12/21 03/31/21 Rosalva Stephen MD [address] [place] [address] [phone] PCP - General Internal Medicine 04/01/21 documented as of this encounter
--- OUTSIDE RECORDS SUMMARY | 2025-10-10 10:59 | XMS_ITS | Encounter Summary ---
Author Organization [facility] Prior to 08/12/[address] [place] [address] Care Team Providers Care Centura Technical Lead Senior Developer Name Role Phone Frances Sung DO Primary Care Pro vider Unavailable Milton Hummel Primary Care Provider Unav ailable Rj Lino MD Primary Care Provider Unava ilable Milton Hummel Primary Care Provider Unav ailable Sharla Gaytan, Frances DO Primary Care Pro vider Unavailable Rosalva Stephen MD Primary Care Provider [phone] Frances Sung DO Primary Care Pro vider Unavailable Rosalva Stephen MD Primary Care Provider [phone] Encounter Details Date Type Department Care Team Description 09/05/2018 Pt. Non Urgent Medic al Question Physiatry - [address] [address] Alejandro William PA-C Social History Tobacco Use [...] on filedocumented in this encounter Care Teams Centura Technical Lead Senior Developer Relationship Specialty Start Date End Date Anup Sungla, PCP - General Internal Medicine 07/12/18 02/24/19 Milton Hummel PCP - General Internal Medicine 02/25/19 06/26/19 Rj Lino MD PCP - General Internal Medicine 06/27/19 07/05/19 Milton Hummel PCP - General Internal Medicine 07/06/19 08/04/19 Frances Sung, DO PCP - General Internal Medicine 08/05/19 03/05/21 Rosalva Stephen MD [address] [place] [address] PCP - General Internal Medicine 03/06/21 03/11/21 Frances Sung, PCP - General Internal Medicine 03/12/21 03/31/21 Rosalva Stephen MD [address] [place] [address] PCP - General Internal Medicine 04/01/21 documented as of this encounter
--- OUTSIDE RECORDS SUMMARY | 2025-10-10 10:59 | XMS_ITS | Clinical Summary ---
Author Organization [facility] Address [address] [place] [address] Phone Care Team Providers Care Pencil Inspector Name Role Phone Betito Rico Primary Care Provider [phone] Allergies Active Allergy Reactions Criticality Noted Date [...] hypermobile type 07/04/2020 Overview (09/29/2024): Follows with [facility] Fibromyalgia 02/03/2019 Depression 02/24/2018 Chronic pain [...] RECONSTRUCTION; COMMENT: augmentation OTHER SURGICAL HISTORY PROCEDURE: [place] SUR[facility]ICAL ARTHROSCOPY SHOULDER LMTD DBRDMT 10/13; COMMENT: [...] RESULTING AGENCY - 03/15/2018 2:38 PM EDT [id number] THINPREP PAP, IMAGED: NEGATIVE FOR SQUAMOUS INTRAEPITHELIAL [...] to Health Maintenance Insurance MEDICARE [facility] Advance Directives Documents on File Type Date Recorded Patient Dry Sand Molder Expl anation Health Care Decision (hx) 01/07/2023 AD MESA DIRECTIVE Health Care Decision (hx) 01/07/2023 AD MESA DIRECTIVE Health Care Decision (hx) 01/07/2023 AD MESA DIRECTIVE Care Teams Pencil Inspector Relationship Specialty Start Date End Date Betito Rico PA [address] [place] [address] PCP - General Physician Cleaning Associate 11/08/24
--- OUTSIDE RECORDS SUMMARY | 2025-10-10 10:59 | XMS_ITS | Encounter Summary ---
Author Organization [facility] Prior to 08/12/[address] [place] [address] Care Team Providers Care Telecom Specialist Name Role Phone Rosalva Stephen MD Primary Care Provider [phone] Encounter Details Date Type Department Care Team Description 01/08/2022 Pt. Referral Request [facility] Jamey [address] [place] [address] [phone] Md Jamey Social History Tobacco Use Types [...] on filedocumented in this encounter Care Teams Telecom Specialist Relationship Specialty Start Date End Date Rosalva Stephen MD [address] [place] [address] [phone] PCP - General Internal Medicine 04/01/21 documented as of this encounter
--- OUTSIDE RECORDS SUMMARY | 2025-10-10 10:59 | XMS_ITS | Encounter Summary ---
Author Organization [facility] Prior to 08/12/[address] [place] [address] Care Team Providers Care Lpta Name Role Phone Frances Sung DO Primary Care Pro vider Unavailable Milton Hummel Primary Care Provider Unav ailable Rj Lino MD Primary Care Provider Unava ilable Milton Hummel Primary Care Provider Unav ailable Frances Sung DO Primary Care Pro vider Unavailable Rosalva Stephen MD Primary Care Provider [phone] Frances Sung DO Primary Care Pro vider Unavailable Rosalva Stephen MD Primary Care Provider [phone] Encounter Details Date Type Department Care Team Description 09/06/2018 [facility] Medical Records [address] [place] [address] Abstract, Provider Social History Tobacco Use Types [...] on filedocumented in this encounter Care Teams Lpta Relationship Specialty Start Date End Date Frances Sung DO PCP - General Internal Medicine 07/12/18 02/24/19 Milton Hummel PCP - General Internal Medicine 02/25/19 06/26/19 Rj Lino MD PCP - General Internal Medicine 06/27/19 07/05/19 Milton Hummel PCP - General Internal Medicine 07/06/19 08/04/19 Frances Sung DO PCP - General Internal Medicine 08/05/19 03/05/21 Rosalva Stephen MD [address] [place] [address] PCP - General Internal Medicine 03/06/21 03/11/21 Frances Sung DO PCP - General Internal Medicine 03/12/21 03/31/21 Rosalva Stephen MD [address] [place] [address] PCP - General Internal Medicine 04/01/21 documented as of this encounter
--- OUTSIDE RECORDS SUMMARY | 2025-10-10 10:59 | XMS_ITS | Encounter Summary ---
Author Organization [facility] Prior to 08/12/[address] [place] [address] Care Team Providers Care Welder Pipe Making Name Role Phone Frances Sung DO Primary Care Pro vider Unavailable Rosalva Stephen MD Primary Care Provider [phone] Frances Sung DO Primary Care Pro vider Unavailable Rosalva Stephen MD Primary Care Provider [phone] Encounter Details Date Type Department Care Team Description 09/21/2020 Calendering Supervisor Report Medical Records [address] [place] [address] Fernie North Social History Tobacco Use Types [...] on filedocumented in this encounter Care Teams Welder Pipe Making Relationship Specialty Start Date End Date Frances Sung DO PCP - General Internal Medicine 08/05/19 03/05/21 Rosalva Stephen MD [address] [place] [address] PCP - General Internal Medicine 03/06/21 03/11/21 Frances Sung DO PCP - General Internal Medicine 03/12/21 03/31/21 Rosalva Stephen MD [address] [place] [address] PCP - General Internal Medicine 04/01/21 documented as of this encounter
--- OUTSIDE RECORDS SUMMARY | 2025-10-10 11:00 | XMS_ITS | Encounter Summary ---
Author Organization [facility] Prior to 08/12/[address] [place] [address] Care Team Providers Care Ophthalmology Surgical Technician Name Role Phone Rosalva Stephen MD Primary Care Provider [phone] Reason for Visit * Reason Onset Date Comments PT-1 04/23/2022 Encounter Details Date Type Department Care Team Description 04/23/2022 Pt. Non Urgent Medical Question Adult Medicine [address] [address] Rosalva Stephen MD [address] [place] [address] Social History Tobacco Use Types Packs/Day Years [...] I need a PT 1 for Dominick FLIGHT TEST SHOP MECHANIC Dr. Stovall Address: [address] [place] [address] Stan [place]ke [place] [address], [place] Phone: [phone] My appt is for May 14 at 12pm. My dental appt is for May 15 at 9am with [facility], [address] [place] [address]. Thank you. documented in this encounter Plan of Treatment Not on file documented as of this encounter Visit Diagnoses Not on filedocumented in this encounter Care Teams Ophthalmology Surgical Technician Relationship Specialty Start Date End Date Rosalva Stephen MD [address] [place] [address] PCP - General Internal Medicine 04/01/21 documented as of this encounter
--- OUTSIDE RECORDS SUMMARY | 2025-10-10 11:00 | XMS_ITS | Encounter Summary ---
Author Organization [facility] Prior to 08/12/[address] [place] [address] Care Team Providers Care Procurement Engineer Name Role Phone Rosalva Stephen MD Primary Care Provider [phone] Encounter Details Date Type Department Care Team Description 03/12/2022 Home Health Certification Medical Records [address] [place] [address] [facility] [address] [id number] Social History Tobacco Use Types Packs/Day Years [...] on filedocumented in this encounter Care Teams Procurement Engineer Relationship Specialty Start Date End Date Rosalva Stephen MD [address] [place], [place] [phone] PCP - General Internal Medicine 04/01/21 documented as of this encounter
--- OUTSIDE RECORDS SUMMARY | 2025-10-10 11:00 | XMS_ITS | Encounter Summary ---
Author Organization [facility] Prior to 08/12/[address] [place] [address] Care Team Providers Care Seafood Manager Name Role Phone Frances Sung DO Primary Care Pro vider Unavailable Rosalva Stephen MD Primary Care Provider [phone] Frances Sung DO Primary Care Pro vider Unavailable Rosalva Stephen MD Primary Care Provider [phone] Encounter Details Date Type Department Care Team Description 12/25/2020 Medical Marijuana Card Medical Records [address] [place] [address] Abstract, Provider Social History Tobacco Use Types [...] on filedocumented in this encounter Care Teams Seafood Manager Relationship Specialty Start Date End Date Frances Sung DO PCP - General Internal Medicine 08/05/19 03/05/21 Rosalva Stephen MD [address] [place] [address] PCP - General Internal Medicine 03/06/21 03/11/21 Frances Sung DO PCP - General Internal Medicine 03/12/21 03/31/21 Rosalva Stephen MD [address] [place] [address] PCP - General Internal Medicine 04/01/21 documented as of this encounter
--- OUTSIDE RECORDS SUMMARY | 2025-10-10 11:00 | XMS_ITS | Encounter Summary ---
Author Organization [facility] Prior to 08/12/[address] [place] [address] Care Team Providers Care Glove Turner And Former Automatic Name Role Phone Frances Sung DO Primary Care Pro vider Unavailable Rosalva Stephen MD Primary Care Provider [phone] Frances Sung DO Primary Care Pro vider Unavailable Rosalva Stephen MD Primary Care Provider [phone] Encounter Details Date Type Department Care Team Description 01/04/2020 Refill Rheumatology - [address] [address] Loyd Langston PA Social History Tobacco Use [...] on filedocumented in this encounter Care Teams Glove Turner And Former Automatic Relationship Specialty Start Date End Date Frances Sung DO PCP - General Internal Medicine 08/05/19 03/05/21 Rosalva Stephen MD [address] [place] [address] PCP - General Internal Medicine 03/06/21 03/11/21 Frances Sung DO PCP - General Internal Medicine 03/12/21 03/31/21 Rosalva Stephen MD [address] [place] [address] PCP - General Internal Medicine 04/01/21 documented as of this encounter
--- OUTSIDE RECORDS SUMMARY | 2025-10-10 11:00 | XMS_ITS | Encounter Summary ---
Author Organization [facility] Prior to 08/12/[address] [place] [address] Care Team Providers Care Machine Pie Maker Name Role Phone Frances Sung DO Primary Care Pro vider Unavailable Rosalva Stephen MD Primary Care Provider [phone] Frances Sung DO Primary Care Pro vider Unavailable Rosalva Stephen MD Primary Care Provider [phone] Encounter Details Date Type Department Care Team Description 02/02/2020 Refill Physiatry - [address] [address] Na Reardon MD [address] [place] [address] Dr [facility] [place] [id number] Social History Tobacco Use Types Packs/Day Years [...] knee documented in this encounter Care Teams Machine Pie Maker Relationship Specialty Start Date End Date Frances Sung DO PCP - General Internal Medicine 08/05/19 03/05/21 Rosalva Stephen MD [address] [place] [address] PCP - General Internal Medicine 03/06/21 03/11/21 Frances Sung DO PCP - General Internal Medicine 03/12/21 03/31/21 Rosalva Stephen MD [address] [place] [address] PCP - General Internal Medicine 04/01/21 documented as of this encounter
--- OUTSIDE RECORDS SUMMARY | 2025-10-10 11:00 | XMS_ITS | Encounter Summary ---
Author Organization [facility] Prior to 08/12/[address] [place] [address] Care Team Providers Care Haunted History Tour Guide Name Role Phone Frances Sung DO Primary Care Pro vider Unavailable Rosalav Stephen MD Primary Care Provider [phone] Frances Sung DO Primary Care Pro vider Unavailable Rosalva Stephen MD Primary Care Provider [phone] Reason for Visit * Reason Onset Date Comments Faxed Order 10/28/2020 Encounter Details Date Type Department Care Team Description 10/28/2020 Telephone Adult [address] [address] Frances Sung DO Faxed Order Social History [...] encounter Miscellaneous Notes * Telephone Encounter - Radha Salgado - 11/05/2020 1:56 PM EST More faxed orders received from [facility] Care, placed in [facility] Sharla Lucila [facility]. * Telephone Encounter - Imelda Almaguer - 10/28/2020 3:17 PM EST [facility] IS FAXING ORDERS TO BE SIGN AND FAX BACK TO [phone]. documented in this encounter Plan of Treatment Not on file documented as of this encounter Visit Diagnoses Not on filedocumented in this encounter Care Teams Haunted History Tour Guide Relationship Specialty Start Date End Date Frances Sung DO PCP - General Internal Medicine 08/05/19 03/05/21 Rosalva Stephen MD [address] [place] [address] PCP - General Internal Medicine 03/06/21 03/11/21 Frances Sung DO PCP - General Internal Medicine 03/12/21 03/31/21 Rosalva Stephen MD [address] [place] [address] PCP - General Internal Medicine 04/01/21 documented as of this encounter
--- OUTSIDE RECORDS SUMMARY | 2025-10-10 11:00 | XMS_ITS | Encounter Summary ---
Author Organization [facility] Prior to 08/12/[address] [place] [address] Care Team Providers Care Supervisor Volunteer Services Name Role Phone Rosalva Stephen MD Primary Care Provider [phone] Encounter Details Date Type Department Care Team Description 03/20/2022 Resin Mixer Report Medical Records [address] [place] [address] Sixto Olmedo DO Social History Tobacco Use [...] filedocumented in this encounter Care Teams Supervisor Volunteer Services Relationship Specialty Start Date End Date Rosalva Stephen MD [address] [place], [place] [phone] PCP - General Internal Medicine 04/01/21 documented as of this encounter
--- OUTSIDE RECORDS SUMMARY | 2025-10-10 11:00 | XMS_ITS | Encounter Summary ---
Author Organization [facility] Prior to 08/12/[address] [place] [address] Care Team Providers Care Plastering Supervisor Name Role Phone Rosalva Stephen MD Primary Care Provider [phone] Encounter Details Date Type Department Care Team Description 03/13/2022 Pt. Non Urgent Medical Question Adult Medicine [address] [phone] Rosalva Stephen MD [address] [place] [address] [phone] Social History Tobacco Use Types Packs/Day Years [...] on filedocumented in this encounter Care Teams Plastering Supervisor Relationship Specialty Start Date End Date Rosalva Stephen MD [address] [place] [address] PCP - General Internal Medicine 04/01/21 documented as of this encounter
--- OUTSIDE RECORDS SUMMARY | 2025-10-10 11:00 | XMS_ITS | Encounter Summary ---
Author Organization [facility] Prior to 08/12/[address] [place] [address] Care Team Providers Care Burr Grinder Name Role Phone Rosalva Stephen MD Primary Care Provider [phone] Encounter Details Date Type Department Care Team Description 02/24/2022 Orders Only Medical Records [address] [place] [address] Rosalva Stephen MD [address] [place] [address] Social History Tobacco Use Types Packs/Day Years [...] Name Priority Date/Time Associated Diagnosis Comments OUTSIDE SLEEP STUDY Routine 02/10/2022 documented in this encounter Results * OUTSIDE SLEEP STUDY (02/10/2022) Rosalva Stephen MD PULMONOLOGY documented in this encounter Visit Diagnoses Not on filedocumented in this encounter Care Teams Burr Grinder Relationship Specialty Start Date End Date Rosalva Stephen MD [address] [place] [address] PCP - General Internal Medicine 04/01/21 documented as of this encounter
--- OUTSIDE RECORDS SUMMARY | 2025-10-10 11:00 | XMS_ITS | Encounter Summary ---
Author Organization [facility] Prior to 08/12/[address] [place] [address] Care Team Providers Care Condenser Winder Name Role Phone Frances Sung DO Primary Care Pro vider Unavailable Rosalva Stephen MD Primary Care Provider [phone] Frances Sung DO Primary Care Pro vider Unavailable Rosalva Stephen MD Primary Care Provider [phone] Encounter Details Date Type Department Care Team Description 12/31/2019 Refill Rheumatology - [address] [address] Loyd Langston PA Social History Tobacco Use [...] on filedocumented in this encounter Care Teams Condenser Winder Relationship Specialty Start Date End Date Frances Sung DO PCP - General Internal Medicine 08/05/19 03/05/21 Rosalva Stephen MD [address] [place] [address] [phone] PCP - General Internal Medicine 03/06/21 03/11/21 Frances Sung DO PCP - General Internal Medicine 03/12/21 03/31/21 Rosalva Stephen MD [address] [place] [address] [phone] PCP - General Internal Medicine 04/01/21 documented as of this encounter
--- OUTSIDE RECORDS SUMMARY | 2025-10-10 11:00 | XMS_ITS | Encounter Summary ---
Author Organization [facility] Prior to 08/12/[address] [place] [address] Care Team Providers Care Skid Man Name Role Phone Frances Sung DO Primary Care Pro vider Unavailable Rosalva Stephen MD Primary Care Provider [phone] Frances Sung DO Primary Care Pro vider Unavailable Rosalva Stephen MD Primary Care Provider [phone] Encounter Details Date Type Department Care Team Description 02/03/2021 Refill Physiatry - [address] [address] Na Reardon MD [address] [place] [address] Dr [place] [id number] Social History Tobacco Use Types Packs/Day Years [...] knee documented in this encounter Care Teams Skid Man Relationship Specialty Start Date End Date Frances Sung DO PCP - General Internal Medicine 08/05/19 03/05/21 Rosalva Stephen MD [address] [place] [address] PCP - General Internal Medicine 03/06/21 03/11/21 Frances Sung DO PCP - General Internal Medicine 03/12/21 03/31/21 Rosalva Stephen MD [address] [place] [address] PCP - General Internal Medicine 04/01/21 documented as of this encounter
--- OUTSIDE RECORDS SUMMARY | 2025-10-10 11:00 | XMS_ITS | Encounter Summary ---
Author Organization [facility] Prior to 08/12/[address] [place] [address] Care Team Providers Care Retail Selling Floor Leader Name Role Phone Rosalva Stephen MD Primary Care Provider [phone] Encounter Details Date Type Department Care Team Description 04/04/2022 Pt. Non Urgent Medical Question Adult Medicine [address] [phone] Rosalva Stephen MD [address] [place] [address] [phone] Social History Tobacco Use Types Packs/Day Years [...] filedocumented in this encounter Care Teams Retail Selling Floor Leader Relationship Specialty Start Date End Date Rosalva Stephen MD [address] [place] [address] PCP - General Internal Medicine 04/01/21 documented as of this encounter
--- OUTSIDE RECORDS SUMMARY | 2025-10-10 11:00 | XMS_ITS | Encounter Summary ---
Author Organization [facility] Prior to 08/12/[address] [place] [address] Care Team Providers Care Still Operator Name Role Phone Frances Sung DO Primary Care Pro vider Unavailable Rosalva Stephen MD Primary Care Provider [phone] Frances Sung DO Primary Care Pro vider Unavailable Rosalva Stephen MD Primary Care Provider [phone] Encounter Details Date Type Department Care Team Description 12/22/2019 Pt. 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 Edison Pisano in [place] and [facility] in [place]. We did not schedule followup today, but would like to see her back in a couple of years in order to review her variant for possible reclassification. Sincerely, Karoline Sultana NP Medical Genetics CC: PCP documented in this encounter Plan of Treatment Not on file documented as of this encounter Visit Diagnoses Not on filedocumented in this encounter Care Teams Still Operator Relationship Specialty Start Date End Date Frances Sung DO PCP - General Internal Medicine 08/05/19 03/05/21 Rosalva Stephen MD [address] [place] [address] [phone] PCP - General Internal Medicine 03/06/21 03/11/21 Frances Sung DO PCP - General Internal Medicine 03/12/21 03/31/21 Rosalva Stephen MD [address] [place] [address] [id number] PCP - General Internal Medicine 04/01/21 documented as of this encounter
--- OUTSIDE RECORDS SUMMARY | 2025-10-10 11:00 | XMS_ITS | Encounter Summary ---
Author Organization [facility] Prior to 08/12/[address] [place] [address] Care Team Providers Care Senior Marketing Analyst Name Role Phone Frances Sung DO Primary Care Pro vider Unavailable Rosalva Stephen MD Primary Care Provider [phone] Frances Sung DO Primary Care Pro vider Unavailable Rosalva Stephen MD Primary Care Provider [phone] Reason for Visit * Reason Onset Date Comments Faxed Order 11/15/2020 Encounter Details Date Type Department Care Team Description 11/15/2020 Telephone Adult [address] [address] Frances Sung DO Faxed Order Social History [...] - 11/15/2020 8:30 AM EST Orders from [facility] to be signed and faxed back to [phone] . documented in this encounter Plan of Treatment Not on file documented as of this encounter Visit Diagnoses Not on filedocumented in this encounter Care Teams Senior Marketing Analyst Relationship Specialty Start Date End Date Frances Sung DO PCP - General Internal Medicine 08/05/19 03/05/21 Rosalva Stephen MD [address] [place] [address] PCP - General Internal Medicine 03/06/21 03/11/21 Frances Sung DO PCP - General Internal Medicine 03/12/21 03/31/21 Rosalva Stephen MD [address] [place] [address] PCP - General Internal Medicine 04/01/21 documented as of this encounter
--- OUTSIDE RECORDS SUMMARY | 2025-10-10 11:00 | XMS_ITS | Encounter Summary ---
Author Organization [facility] Prior to 08/12/[address] [place] [address]14 Care Team Providers Care Cold Saw Operator Name Role Phone Frances Sung DO Primary Care Pro vider Unavailable Rosalva Stephen MD Primary Care Provider [phone] Frances Sung DO Primary Care Pro vider Unavailable Rosalva Stephen MD Primary Care Provider [phone] Reason for Visit * Reason Comments E-prescribe Rx Request Encounter Details Date Type Department Care Team Description 03/03/2020 Refill Physiatry - [address] [address] Alejandro William PA-C E-prescribe Rx Request Social History Tobacco Use [...] Telephone Encounter - Alyssa Lyon L.P.N. - 03/08/2020 2:05 PM EDT Script to pharmacy Called pt to schedule follow up with Dr Avila Message left on voice mail to call back Please schedule follow up with Dr Avila can be audio appt if pt prefers * Telephone Encounter - Na Reardon MD - 03/08/2020 1:36 PM EDT Needs her 3 month med fup, ok to do audio * Telephone Encounter - Susan Nielson M.A. - 03/06/2020 8:13 AM EDT Last ov 02/23/20 Last script 07/04/20 No future ov documented in this encounter Plan of Treatment Not on file documented as of this encounter Visit Diagnoses Not on filedocumented in this encounter Care Teams Cold Saw Operator Relationship Specialty Start Date End Date Frances Sung DO PCP - General Internal Medicine 08/05/19 03/05/21 Rosalva Stephen MD [address] [place] [address] PCP - General Internal Medicine 03/06/21 03/11/21 Frances Sung DO PCP - General Internal Medicine 03/12/21 03/31/21 Rosalva Stephen MD [address] [place] [address] PCP - General Internal Medicine 04/01/21 documented as of this encounter
--- OUTSIDE RECORDS SUMMARY | 2025-10-10 11:00 | XMS_ITS | Encounter Summary ---
Author Organization [facility] Prior to 08/12/[address] [place] [address] Care Team Providers Care Hand Packager Name Role Phone Frances Sung DO Primary Care Pro vider Unavailable Rosalva Stephen MD Primary Care Provider [phone] Frances Sung DO Primary Care Pro vider Unavailable Rosalva Stephen MD Primary Care Provider [phone] Encounter Details Date Type Department Care Team Description 10/08/2020 Bone Puller Report Medical Records [address] [place] [address] Abstract, Provider Social History Tobacco Use Types [...] filedocumented in this encounter Care Teams Hand Packager Relationship Specialty Start Date End Date Frances Sung DO PCP - General Internal Medicine 08/05/19 03/05/21 Rosalva Stephen MD [address] [place] [address] PCP - General Internal Medicine 03/06/21 03/11/21 Frances Sung DO PCP - General Internal Medicine 03/12/21 03/31/21 Rosalva Stephen MD [address] [place] [address] PCP - General Internal Medicine 04/01/21 documented as of this encounter
--- OUTSIDE RECORDS SUMMARY | 2025-10-10 11:00 | XMS_ITS | Encounter Summary ---
Author Organization [facility] Prior to 08/12/[address] [place] [address] Care Team Providers Care Customer Service Associate Name Role Phone Rosalva Stephen MD Primary Care Provider [phone] Encounter Details Date Type Department Care Team Description 03/07/2022 Packer Report Medical Records [address] [place] [address] [facility] Social History Tobacco Use Types Packs/Day Years [...] on filedocumented in this encounter Care Teams Customer Service Associate Relationship Specialty Start Date End Date Rosalva Stephen MD [address] [place], [place] [phone] PCP - General Internal Medicine 04/01/21 documented as of this encounter
--- OUTSIDE RECORDS SUMMARY | 2025-10-10 11:00 | XMS_ITS | Encounter Summary ---
Author Organization [facility] Prior to 08/12/[address] [place] [address] Care Team Providers Care Barrel Handler Name Role Phone Rosalva Stephen MD Primary Care Provider [phone] Reason for Visit * Reason Onset Date Comments Faxed Order 04/09/2022 [facility] Encounter Details Date Type Department Care Team Description 04/09/2022 Telephone Adult Medicine [address] [address] Rosalva Stephen MD [address] [place] [address] Faxed Order ([facility] ) Social History Tobacco Use Types Packs/Day [...] Miscellaneous Notes * Telephone Encounter - Ana Sevilla - 04/09/2022 12:21 PM EDT Needs orders signed and faxed back to [phone] documented in this encounter Plan of Treatment Not on file documented as of this encounter Visit Diagnoses Not on filedocumented in this encounter Care Teams Barrel Handler Relationship Specialty Start Date End Date Rosalva Stephen MD [address] [place] [address] PCP - General Internal Medicine 04/01/21 documented as of this encounter
--- OUTSIDE RECORDS SUMMARY | 2025-10-10 11:00 | XMS_ITS | Encounter Summary ---
Author Organization [facility] Prior to 08/12/[address] [place] [address] Care Team Providers Care Optical Glass Wet Inspector Name Role Phone Rosalva Stephen MD Primary Care Provider [phone] Reason for Visit * Reason Onset Date Comments Faxed Order 02/05/2022 [facility] [id number] Encounter Details Date Type Department Care Team Description 02/05/2022 Telephone Adult Medicine [facility] [address] [place] [address] Rosalva Stephen MD [address] [place] [address] [facility] [id number][facility] Social History Tobacco Use Types Packs/Day Years [...] on filedocumented in this encounter Care Teams Optical Glass Wet Inspector Relationship Specialty Start Date End Date Rosalva Stephen MD [address] [place] [address] [phone] PCP - General Internal Medicine 04/01/21 documented as of this encounter
--- OUTSIDE RECORDS SUMMARY | 2025-10-10 11:01 | XMS_ITS | Encounter Summary ---
Author Organization [facility] Prior to 08/12/[address] [place] [address] Care Team Providers Care Infection Preventionist Name Role Phone Hector Morris MD Primary Care Provider Unavail able [facility], [facility] Primary Care Provider Unavailabl [...] Unavailable Rosalva Stephen MD Primary Care Provider [phone] [place] Colasacco, Frances DO Primary Care Pro vider Unavailable Rosalva Stephen MD Primary Care Provider [phone] Encounter Details Date Type Department Care Team Description 07/19/2015 Hospital Medical Records [address] [place] [address] Igor Rdz MD Social History Tobacco Use [...] on filedocumented in this encounter Care Teams Infection Preventionist Relationship Specialty Start Date End Date Hector Morris MD PCP - General Internal Medicine 10/18/13 01/31/16 [facility], Pcp PCP - General Internal Medicine [...] Medicine 08/05/19 03/05/21 Rosalva Stephen MD [address] [place] [address] PCP - General Internal Medicine 03/06/21 03/11/21 Frances Sung, PCP - General Internal Medicine 03/12/21 03/31/21 Rosalva Stephen MD [address] [place] [address] [phone] PCP - General Internal Medicine 04/01/21 documented as of this encounter
--- OUTSIDE RECORDS SUMMARY | 2025-10-10 11:01 | XMS_ITS | Encounter Summary ---
Author Organization [facility] Prior to 08/12/[address] [place] [address] Care Team Providers Care Personal Lines Account Executive Name Role Phone [place] Colasacco, Frances DO [...] Unavailable Rosalva Stephen MD Primary Care Provider [phone] [place] Colasacco, Frances DO Primary Care Pro vider Unavailable Rosalva Stephen MD Primary Care Provider [phone] Encounter Details Date Type Department Care Team Description 12/28/2017 [facility] Medical Records [address] [place] [address] Abstract, Provider Social History Tobacco Use Types [...] on filedocumented in this encounter Care Teams Personal Lines Account Executive Relationship Specialty Start Date End Date Frances [...] Medicine 08/05/19 03/05/21 Rosalva Stephen MD [address] [place] [address] [phone] PCP - General Internal Medicine 03/06/21 03/11/21 Frances Sung, PCP - General Internal Medicine 03/12/21 03/31/21 Rosalva Stephen MD [address] [place] [address] [phone] PCP - General Internal Medicine 04/01/21 documented as of this encounter
--- OUTSIDE RECORDS SUMMARY | 2025-10-10 11:01 | XMS_ITS | Encounter Summary ---
Author Organization [facility] Prior to 08/12/[address] [place] [address] Care Team Providers Care Roofer Gypsum Name Role Phone Rosalva Stephen MD Primary Care Provider [phone] Encounter Details Date Type Department Care Team Description 05/11/2022 Home Health Certification Medical Records [address] [place] [address] [facility] [address] [id number] Social History Tobacco Use Types Packs/Day Years [...] on filedocumented in this encounter Care Teams Roofer Gypsum Relationship Specialty Start Date End Date Rosalva Stephen MD [address] [place], [place] [phone] PCP - General Internal Medicine 04/01/21 documented as of this encounter
--- OUTSIDE RECORDS SUMMARY | 2025-10-10 11:01 | XMS_ITS | Encounter Summary ---
Author Organization [facility] Prior to 08/12/[address] [place] [address]107 Care Team Providers Care Rivers And Lakes Boatman Name Role Phone Krakowiak Colasacco, Frances DO [...] Rosalva Stephen MD Primary Care Provider [phone] Krakowiak Colasacco, Frances DO Primary Care Pro vider Unavailable Rosalva Stephen MD Primary Care Provider [phone] Encounter Details Date Type Department Care Team Description 08/05/2016 [facility] Medical Records [address] [place] [address] Abstract, Provider Social History Tobacco Use Types [...] on filedocumented in this encounter Care Teams Rivers [place] Boatman Relationship Specialty Start Date End Date Frances [...] Medicine 08/05/19 03/05/21 Rosalva Stephen MD [address] [place] [address] [phone] PCP - General Internal Medicine 03/06/21 03/11/21 Frances Sung, PCP - General Internal Medicine 03/12/21 03/31/21 Rosalva Stephen MD [address] [place] [address] [phone] PCP - General Internal Medicine 04/01/21 documented as of this encounter
--- OUTSIDE RECORDS SUMMARY | 2025-10-10 11:01 | XMS_ITS | Encounter Summary ---
Author Organization [facility] Prior to 08/12/[address] [place] [address] Care Team Providers Care Tree Pruner Name Role Phone Hector Morris MD Primary Care Provider Unavail able [facility], [facility] Primary Care Provider Unavailabl e Krakowiak [...] Unavailable Rosalva Stephen MD Primary Care Provider [phone] Krakowiak Colasacco, Frances DO Primary Care Pro vider Unavailable Rosalva Stephen MD Primary Care Provider [phone] Encounter Details Date Type Department Care Team Description 07/22/2015 [facility] Medical Records [address] [place] [address] Igor Rdz MD Social History Tobacco Use [...] on filedocumented in this encounter Care Teams Tree Pruner Relationship Specialty Start Date End Date Hector Morris MD PCP - General Internal Medicine 10/18/13 01/31/16 [facility], Pcp PCP - General Internal Medicine 02/01/16 [...] Medicine 08/05/19 03/05/21 Rosalva Stephen MD [address] [place] [address] PCP - General Internal Medicine 03/06/21 03/11/21 Frances Sung, PCP - General Internal Medicine 03/12/21 03/31/21 Rosalva Stephen MD [address] [place] [address] [id number] PCP - General Internal Medicine 04/01/21 documented as of this encounter
--- OUTSIDE RECORDS SUMMARY | 2025-10-10 11:01 | XMS_ITS | Encounter Summary ---
Author Organization [facility] Prior to 08/12/[address] [place] [address] Care Team Providers Care Human Resources Technician Name Role Phone Frances Sung DO Primary Care Pro vider Unavailable Rosalva Stephen MD Primary Care Provider [phone] Encounter Details Date Type Department Care Team Description 03/13/2021 [facility] Medical Records [address] [place] [address] Abstract, Provider Social History Tobacco Use Types [...] on filedocumented in this encounter Care Teams Human Resources Technician Relationship Specialty Start Date End Date Frances Sung DO PCP - General Internal Medicine 03/12/21 03/31/21 Rosalva Stephen MD [address] [place] [address] [phone] PCP - General Internal Medicine 04/01/21 documented as of this encounter
--- OUTSIDE RECORDS SUMMARY | 2025-10-10 11:01 | XMS_ITS | Encounter Summary ---
Author Organization [facility] Prior to 08/12/[address] [place] [address] Care Team Providers Care Electric Stop Installer Name Role Phone Sharla Gaytan, Frances DO Primary Care Pro vider Unavailable Milton Hummel Primary Care Provider Unav ailRj Pyle MD Primary Care Provider Unava ilable Milton Hummel Primary Care Provider Unav ailable Sharla Issacco, Frances DO Primary Care Pro vider Unavailable Rosalva Stephen MD Primary Care Provider [phone] Krakojob Coltwylao, Frances DO Primary Care Pro vider Unavailable Rosalva Stephen MD Primary Care Provider [phone] Reason for Visit * Reason Onset Date Comments Provider Call Back 02/11/2019 Encounter Details Date Type Department Care Team Description 02/11/2019 Telephone Physiatry - [address] [phone] Na Reardon MD [address] [place] [address] [place] [address] Provider Call Back [...] Telephone Encounter - Susan Nielson M.A. - 02/11/2019 12:02 PM EDT Patient will come [...] filedocumented in this encounter Care Teams Electric Stop Installer Relationship Specialty Start Date End Date Frances Sung DO PCP - General Internal Medicine 07/12/18 02/24/19 Milton Hummel PCP - General Internal Medicine 02/25/19 06/26/19 Rj Lino MD PCP - General Internal Medicine 06/27/19 07/05/19 Milton Hummel PCP - General Internal Medicine 07/06/19 08/04/19 Frances Sung DO PCP - General Internal Medicine 08/05/19 03/05/21 Rosalva Stephen MD [address] [place] [phone] PCP - General Internal Medicine 03/06/21 03/11/21 Frances Sung DO PCP - General Internal Medicine 03/12/21 03/31/21 Rosalva Stephen MD [address] [place] [phone] PCP - General Internal Medicine 04/01/21 documented as of this encounter
--- OUTSIDE RECORDS SUMMARY | 2025-10-10 11:01 | XMS_ITS | Encounter Summary ---
Author Organization [facility] Prior to 08/12/[address] [place] [address] 10698 Care Team Providers Care Residence Hall Director Name Role Phone Krakowiak Colasacco, Frances [...] Unavailable Rosalva Stephen MD Primary Care Provider [phone] Krak[place]iak Colasacco, Frances DO Primary Care Pro vider Unavailable Rosalva Stephen MD Primary Care Provider [phone] Encounter Details Date Type Department Care Team Description 02/04/2018 Release of Information Medical Records [address] [place] [address] 51218 Abstract, Provider Social History Tobacco Use Types [...] on filedocumented in this encounter Care Teams Residence Hall Director Relationship Specialty Start Date End Date [...] Medicine 08/05/19 03/05/21 Rosalva Stephen MD [address] [place] [address] [phone] PCP - General Internal Medicine 03/06/21 03/11/21 Frances Sung, PCP - General Internal Medicine 03/12/21 03/31/21 Rosalva Stephen MD [address] [place] [address] [phone] PCP - General Internal Medicine 04/01/21 documented as of this encounter
--- OUTSIDE RECORDS SUMMARY | 2025-10-10 11:01 | XMS_ITS | Encounter Summary ---
Author Organization [facility] Prior to 08/12/[address] [place] [address] Care Team Providers Care Washcloth Folder Name Role Phone Frances Sung DO Primary Care Pro vider Unavailable Rosalva Stephen MD Primary Care Provider [phone] Frances Sung DO Primary Care Pro vider Unavailable Rosalva Stephen MD Primary Care Provider [phone] Encounter Details Date Type Department Care Team Description 05/01/2020 [facility] Medical Records [address] [place] [address] Abstract, Provider Social History Tobacco Use Types [...] on filedocumented in this encounter Care Teams Washcloth Folder Relationship Specialty Start Date End Date Frances Sung DO PCP - General Internal Medicine 08/05/19 03/05/21 Rosalva Stephen MD [address] [place] [address] [phone] PCP - General Internal Medicine 03/06/21 03/11/21 Frances Sung DO PCP - General Internal Medicine 03/12/21 03/31/21 Rosalva Stephen MD [address] [place] [address] PCP - General Internal Medicine 04/01/21 documented as of this encounter
--- OUTSIDE RECORDS SUMMARY | 2025-10-10 11:01 | XMS_ITS | Encounter Summary ---
Author Organization [facility] Prior to 08/12/[address] [place] [address] Care Team Providers Care Production Internship Name Role Phone Frances Sung DO Primary Care Pro vider Unavailable Rosalva Stephen MD Primary Care Provider [phone] Reason for Visit * Reason Onset Date Comments Medication 03/20/2021 Encounter Details Date Type Department Care Team Description 03/20/2021 Telephone Physiatry - [address] [address] Na Reardon MD [address] [place] [address] Dr [place] [id number] Medication Social History Tobacco Use Types Packs/Day [...] Patient had hand surgery on 03/19/21 at [facility]. She was prescribed Oxcodone 1-2 pillsevery 6 hours. Pharmacy will not fill the prescription from [place] because she just picked up a prescription on 03/07/21. documented in this encounter Plan of Treatment Not on file documented as of this encounter Visit Diagnoses Not on filedocumented in this encounter Care Teams Production Internship Relationship Specialty Start Date End Date Frances Sung DO PCP - General Internal Medicine 03/12/21 03/31/21 Rosalva Stephen MD [address] [place] [id number] PCP - General Internal Medicine 04/01/21 documented as of this encounter
--- OUTSIDE RECORDS SUMMARY | 2025-10-10 11:01 | XMS_ITS | Encounter Summary ---
Author Organization [facility] Prior to 08/12/[address] [place] [address] Care Team Providers Care Handhole Machine Operator Name Role Phone Frances Sung DO Primary Care Pro vider Unavailable Rosalva Stephen MD Primary Care Provider [phone] Frances Sung DO Primary Care Pro vider Unavailable Rosalva Stephen MD Primary Care Provider [phone] Reason for Visit * Reason Onset Date Comments Faxed Refill 04/27/2020 norethindrone-et hinyl estradiol (NECON) 0.5-35 MG-MCG per tablet Encounter Details Date Type Department Care Team Description 04/27/2020 Refill OBGYN - [place] [address] [place] [address] Rizwana Carter MD [address] [place] [address] Faxed Refill (norethindrone-ethinyl estradiol (NECON) 0.5-35 MG-MCG [...] EDT WHEN WAS THE PATIENTS LAST ANNUAL CERTIFIED PROSTHETIST VICE PRESIDENT EXAM? 03/22/20 Does patient have an upcoming [...] the end of the day? NO Payor: [employer] FFS / Plan: [employer] / Product Type: MEDICAID RISK documented in this encounter Plan of Treatment Not on file documented as of this encounter Visit Diagnoses Not on filedocumented in this encounter Care Teams Handhole Machine Operator Relationship Specialty Start Date End Date Frances Sung DO PCP - General Internal Medicine 08/05/19 03/05/21 Rosalva Stephen MD [address] [place] [address] 94856 PCP - General Internal Medicine 03/06/21 03/11/21 Frances Sung DO PCP - General Internal Medicine 03/12/21 03/31/21 Rosalva Stephen MD [address] [place] [address] [phone] PCP - General Internal Medicine 04/01/21 documented as of this encounter
--- OUTSIDE RECORDS SUMMARY | 2025-10-10 11:01 | XMS_ITS | Encounter Summary ---
Author Organization [facility] Prior to 08/12/[address] [place] [address]60 Care Team Providers Care Mobility Developer Name Role Phone Krakowiak Colasacco, Frances DO [...] Unavailable Rosalva Stephen MD Primary Care Provider [phone] Krakowiak Colasacco, Frances DO Primary Care Pro vider Unavailable Rosalva Stephen MD Primary Care Provider [phone] Encounter Details Date Type Department Care Team Description 01/24/2018 Pt. Non Urgent Medic al Question Adult Medicine [address] [address] Krakowiak ColtwylaoAnupla DO Social History Tobacco Use [...] Juan-Danlos Syndrome My clinical nurse specialist at [facility] went over my medical history and asked if I've ever been testedfor Juan-Danlos Syndrome. I have not. 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 I have mild scoliosis and have always had easy bruising. I was told a blood test could diagnose this. Can we schedule an appt or just have me come in for lab work please? documented in this encounter Plan of Treatment Not on file documented as of this encounter Visit Diagnoses Not on filedocumented in this encounter Care Teams Mobility Developer Relationship Specialty Start Date End Date [...] 03/05/21 Rosalva Stephen MD [address] [place] [address] [phone] PCP - General Internal Medicine 03/06/21 03/11/21 Frances Sung DO PCP - General Internal Medicine 03/12/21 03/31/21 Rosalva Stephen MD [address] [place] [address] [phone] PCP - General Internal Medicine 04/01/21 documented as of this encounter
--- OUTSIDE RECORDS SUMMARY | 2025-10-10 11:01 | XMS_ITS | Encounter Summary ---
Author Organization [facility] Prior to 08/12/[address] [place] [address] Care Team Providers Care Terminal Block Assembler Name Role Phone Frances Sung DO Primary Care Pro vider Unavailable Rosalva Stephen MD Primary Care Provider [phone] Frances Sung DO Primary Care Pro vider Unavailable Rosalva Stephen MD Primary Care Provider [phone] Encounter Details Date Type Department Care Team Description 03/20/2020 Pt. Non Urgent Medical Question Rheumatology - [address] [address] Loyd Langston PA Social History Tobacco Use [...] on filedocumented in this encounter Care Teams Terminal Block Assembler Relationship Specialty Start Date End Date Frances Sung DO PCP - General Internal Medicine 08/05/19 03/05/21 Rosalva Stephen MD [address] [place] [address] [phone] PCP - General Internal Medicine 03/06/21 03/11/21 Frances Sung DO PCP - General Internal Medicine 03/12/21 03/31/21 Rosalva Stephen MD [address] [place] [address] [id number] PCP - General Internal Medicine 04/01/21 documented as of this encounter
--- OUTSIDE RECORDS SUMMARY | 2025-10-10 11:01 | XMS_ITS | Encounter Summary ---
Author Organization [facility] Prior to 08/12/[address] [place] [address] 95442 Care Team Providers Care Telephone Operator Chief Name Role Phone Denicekojob Coltwylao, Frances DO Primary Care Pro vider Unavailable Doug Cosby MD Primary Care Provider Unavail able Krakowiak Colasacco, Frances DO Primary Care Pro vider Unavailable Milton Hummel Primary Care Provider Unav ailable Rj Lino MD Primary Care Provider Unava ilable Milton Hummel Primary Care Provider Unav ailable [place] Colasacco, Frances DO Primary Care Pro vider Unavailable Rosalva Stephen MD Primary Care Provider [phone] Krakowiak Colasacco, Frances DO Primary Care Pro vider Unavailable Rosalva Stephen MD Primary Care Provider [phone] Reason for Visit * Reason Onset Date Comments Housekeeping Room Inspector Feedback 12/18/2017 Abe Lemos Encounter Details Date Type Department Care Team Description 12/18/2017 Telephone Adult [address] [address] Frances Sung DO Cro Feedback (Abe Lemos) Social History Tobacco Use Types Packs/Day Years [...] encounter Miscellaneous Notes * Telephone Encounter - Nidhi No - 12/18/2017 1:00 PM EST No insurance referral required per patient's insurance. * Telephone Encounter - Vera Short - 12/18/2017 11:53 AM EST What insurance does the patient have today? [employer] Effective 07/12/09: BCBS will not retro referral requests over 90 days. If request is for this please instruct patient to call the 800# on their insurance card to appeal. Do not submit a request. Referrals cannot be processed if the insurance is not accurate. If the insurance listed above in red is NO BILLING INFORMATION FOUND FOR THIS ENCOUTNER The patients correct insurance must be obtained and registered in [facility] or their referral can not be processed. Is this a retro request? NO. If yes for what date of service do you need the retro referral? N/A Who is calling to request this referral? The patient If the caller is not the patient, what is their name? N/A Ask the patient WHO referred them to this specialty: Patient self referred FIRST and LAST NAME of SPECIALIST PATIENT is seeing: Abe Lemos What specialty is this? Orthopedic DIAGNOSIS Patient is being seen for (Not a body part or a procedure): bone spur, left shoulder arthritis Have you seen this SPECIALIST for this PROBLEM/DX before?YES If YES, when:01/19/2017 Have you checked REVIEW or the APPT DESK to see if this referral has already been done or has visits left? YES Is this visit:Follow Up Address of Specialist: [address] [place] [address], [address], [place] [address] Phone # of Specialist:[phone] Fax #: (if applicable): Does patient have an appointment scheduled?: YES Date of appointment- (including a retro-request): 01/22/18 Is this appointment related to: N/A documented in this encounter Plan of Treatment Not on file documented as of this encounter Visit Diagnoses Not on filedocumented in this encounter Care Teams Telephone Operator Chief Relationship Specialty Start Date End Date [...] Medicine 08/05/19 03/05/21 Rosalva Stephen MD [address] [place] [address]21 PCP - General Internal Medicine 03/06/21 03/11/21 Frances Sung DO PCP - General Internal Medicine 03/12/21 03/31/21 Rosalva Stephen MD [address] [place] [address] 15516 PCP - General Internal Medicine 04/01/21 documented as of this encounter
--- OUTSIDE RECORDS SUMMARY | 2025-10-10 11:01 | XMS_ITS | Encounter Summary ---
Author Organization [facility] Prior to 08/12/[address] [place] [address] Care Team Providers Care Career Education Teacher Name Role Phone Krakowiak Colasacco, Frances DO [...] Unavailable Rosalva Stephen MD Primary Care Provider [phone] Krakowiak Colasacco, Frances DO Primary Care Pro vider Unavailable Rosalva Stephen MD Primary Care Provider [phone] Encounter Details Date Type Department Care Team Description 01/28/2018 Pt. Non Urgent Medic al Question Adult Medicine [address] [address] Krakowiak ColtwylaoFrances DO Social History Tobacco Use [...] filedocumented in this encounter Care Teams Career Education Teacher Relationship Specialty Start Date End Date Frances [...] Medicine 08/05/19 03/05/21 Rosalva Stephen MD [address] [place] [address]57 PCP - General Internal Medicine 03/06/21 03/11/21 Frances Sung DO PCP - General Internal Medicine 03/12/21 03/31/21 Rosalva Stephen MD [address] [place] [address] PCP - General Internal Medicine 04/01/21 documented as of this encounter
--- OUTSIDE RECORDS SUMMARY | 2025-10-10 11:01 | XMS_ITS | Encounter Summary ---
Author Organization [facility] Prior to 08/12/[address] [place] [address]95 Care Team Providers Care Structural Fitter Name Role Phone Hector Morris MD Primary Care Provider Unavail able [facility], Pcp Primary Care Provider Unavailabl e [...] Unavailable Rosalva Stephen MD Primary Care Provider [phone] Krakowiak Colasacco, Frances DO Primary Care Pro vider Unavailable Rosalva Stephen MD Primary Care Provider [phone] Encounter Details Date Type Department Care Team Description 11/02/2014 Hand Assembler For Puller Over Report Medical Records [address] [place] [address] Luis Pickens MD Social History Tobacco Use [...] on filedocumented in this encounter Care Teams Structural Fitter Relationship Specialty Start Date End Date Hector Morris MD PCP - General Internal Medicine 10/18/13 01/31/16 [facility], [facility] PCP - General Internal [...] Medicine 08/05/19 03/05/21 Rosalva Stephen MD [address] [place] [address] PCP - General Internal Medicine 03/06/21 03/11/21 Frances Sung, PCP - General Internal Medicine 03/12/21 03/31/21 Rosalva Stephen MD [address] [place] [address] PCP - General Internal Medicine 04/01/21 documented as of this encounter
--- OUTSIDE RECORDS SUMMARY | 2025-10-10 11:01 | XMS_ITS | Encounter Summary ---
Author Organization [facility] Prior to 08/12/[address] [place] [address] Care Team Providers Care Boring Mill Set Up Operator Name Role Phone Frances Sung DO Primary Care Pro vider Unavailable Milton Hummel Primary Care Provider Unav ailable Rj Lino MD Primary Care Provider Unava ilable Milton Hummel Primary Care Provider Unav ailable Frances Sung DO Primary Care Pro vider Unavailable Rosalva Stephen MD Primary Care Provider [phone] Frances Sung DO Primary Care Pro vider Unavailable Rosalva Stephen MD Primary Care Provider [phone] Encounter Details Date Type Department Care Team Description 02/01/2019 Medical Marijuana Card Medical Records [address] [place] [address] Abstract, Provider Social History Tobacco Use Types [...] on filedocumented in this encounter Care Teams Boring Mill Set Up Operator Relationship Specialty Start Date End Date Frances Sung DO PCP - General Internal Medicine 07/12/18 02/24/19 Milton Hummel PCP - General Internal Medicine 02/25/19 06/26/19 Rj Lino MD PCP - General Internal Medicine 06/27/19 07/05/19 Milton Hummel PCP - General Internal Medicine 07/06/19 08/04/19 Frances Sung DO PCP - General Internal Medicine 08/05/19 03/05/21 Rosalva Stephen MD [address] [place] [id number] PCP - General Internal Medicine 03/06/21 03/11/21 Frances Sung DO PCP - General Internal Medicine 03/12/21 03/31/21 Rosalva Stephen MD [address] [place] [address]792 PCP - General Internal Medicine 04/01/21 documented as of this encounter
--- OUTSIDE RECORDS SUMMARY | 2025-10-10 11:01 | XMS_ITS | Encounter Summary ---
Author Organization [facility] Prior to 08/12/[address] [place] [address] Care Team Providers Care Collect On Delivery Clerk Name Role Phone Frances Sung DO Primary Care Pro vider Unavailable Rosalva Stephen MD Primary Care Provider [phone] Frances Sung DO Primary Care Pro vider Unavailable Rosalva Stephen MD Primary Care Provider [phone] Encounter Details Date Type Department Care Team Description 04/25/2020 Refill Physiatry - [address] [address] Na Reardon MD [address] [place] [address] [place] [id number] Social History Tobacco Use Types Packs/Day Years [...] knee documented in this encounter Care Teams Collect On Delivery Clerk Relationship Specialty Start Date End Date Frances Sung DO PCP - General Internal Medicine 08/05/19 03/05/21 Rosalva Stephen MD [address] [place] [address] PCP - General Internal Medicine 03/06/21 03/11/21 Frances Sung DO PCP - General Internal Medicine 03/12/21 03/31/21 Rosalva Stephen MD [address] [place] [id number] PCP - General Internal Medicine 04/01/21 documented as of this encounter
--- OUTSIDE RECORDS SUMMARY | 2025-10-10 11:01 | XMS_ITS | Encounter Summary ---
Author Organization [facility] Prior to 08/12/[address] [place] [address] Care Team Providers Care Medical Biller Coder Name Role Phone Rosalva Stephen MD Primary Care Provider [phone] Reason for Visit * Reason Onset Date Comments Faxed Order 05/22/2022 [facility] 022-07/09/2022 Encounter Details Date Type Department Care Team Description 05/22/2022 Telephone Adult Medicine [address] [address] Rosalva Stephen MD [address] [place] [address] Faxed Order ([facility] 05/11/2022-07/09/2022) Social History Tobacco [...] on filedocumented in this encounter Care Teams Medical Biller Coder Relationship Specialty Start Date End Date Rosalva Stephen MD [address] [place] [address] PCP - General Internal Medicine 04/01/21 documented as of this encounter
--- OUTSIDE RECORDS SUMMARY | 2025-10-10 11:01 | XMS_ITS | Encounter Summary ---
Author Organization [facility] Prior to 08/12/[address] [place] [address] Care Team Providers Care Group Counselor Name Role Phone Frances Sung DO Primary Care Pro vider Unavailable Milton Hummel Primary Care Provider Unav ailable Rj Lino MD Primary Care Provider Unava ilable Milton Hummel Primary Care Provider Unav ailable Frances Sung DO Primary Care Pro vider Unavailable Rosalva Stephen MD Primary Care Provider [phone] Frances Sung DO Primary Care Pro vider Unavailable Rosalva Stephen MD Primary Care Provider [phone] Encounter Details Date Type Department Care Team Description 02/22/2019 [facility] Medical Records [address] [place] [address] Abstract, Provider Social History Tobacco Use Types [...] on filedocumented in this encounter Care Teams Group Counselor Relationship Specialty Start Date End Date Frances Sung DO PCP - General Internal Medicine 07/12/18 02/24/19 Milton Hummel PCP - General Internal Medicine 02/25/19 06/26/19 Rj Lino MD PCP - General Internal Medicine 06/27/19 07/05/19 Milton Hummel PCP - General Internal Medicine 07/06/19 08/04/19 Frances Snug DO PCP - General Internal Medicine 08/05/19 03/05/21 Rosalva Stepehn MD [address] [place] [address] PCP - General Internal Medicine 03/06/21 03/11/21 Frances Sung DO PCP - General Internal Medicine 03/12/21 03/31/21 Rosalva Stephen MD [address] [place] [address] PCP - General Internal Medicine 04/01/21 documented as of this encounter
--- OUTSIDE RECORDS SUMMARY | 2025-10-10 11:01 | XMS_ITS | Encounter Summary ---
Author Organization [facility] Prior to 08/12/[address] [place] [address] Care Team Providers Care Shoe Treer Name Role Phone Krakowiak Colasacco, Frances DO [...] Unavailable Rosalva Stephen MD Primary Care Provider [phone] Krakowiak Colasacco, Frances DO Primary Care Pro vider Unavailable Rosalva Stephen MD Primary Care Provider [phone] Reason for Visit * Reason Comments E-prescribe Rx Request Encounter Details Date Type Department Care Team Description 01/26/2018 Refill Physiatry - [address] [address] Na Reardon MD [address] [place] [address] [place] [address] E-prescribe Rx Request [...] on filedocumented in this encounter Care Teams Shoe Treer Relationship Specialty Start Date End Date Frances [...] Medicine 08/05/19 03/05/21 Rosalva Stephen MD [address] [place] [address] PCP - General Internal Medicine 03/06/21 03/11/21 Frances Sung DO PCP - General Internal Medicine 03/12/21 03/31/21 Rosalva Stephen MD [address] [place] [address] PCP - General Internal Medicine 04/01/21 documented as of this encounter
--- OUTSIDE RECORDS SUMMARY | 2025-10-10 11:01 | XMS_ITS | Encounter Summary ---
Author Organization [facility] Prior to 08/12/[address] [place] [address] Care Team Providers Care Box Closing Machine Operator Name Role Phone Frances Sung DO Primary Care Pro vider Unavailable Rosalva Stephen MD Primary Care Provider [phone] Frances Sung DO Primary Care Pro vider Unavailable Rosalva Stephen MD Primary Care Provider [phone] Encounter Details Date Type Department Care Team Description 03/26/2020 Refill Physiatry - [address] [address] Na Reardon MD [address] [place] [address] Dr [place] [id number] Social History Tobacco Use Types Packs/Day Years [...] for Deb Malcolm * Telephone Encounter - [employer] - 03/27/2020 8:12 AM EDT Contracted Last [...] knee documented in this encounter Care Teams Box Closing Machine Operator Relationship Specialty Start Date End Date Frances Sung DO PCP - General Internal Medicine 08/05/19 03/05/21 Rosalva Stephen MD [address] [place] [address] PCP - General Internal Medicine 03/06/21 03/11/21 Frances Sung DO PCP - General Internal Medicine 03/12/21 03/31/21 Rosalva Stephen MD [address] [place] [address] PCP - General Internal Medicine 04/01/21 documented as of this encounter
--- OUTSIDE RECORDS SUMMARY | 2025-10-10 11:01 | XMS_ITS | Encounter Summary ---
Author Organization [facility] Prior to 08/12/[address] [place] [address] Care Team Providers Care Agricultural Equipment Sales Engineer Name Role Phone Krakowiak Colasacco, Frances [...] Unavailable Rosalva Stephen MD Primary Care Provider [phone] Krakowiak Colasacco, Frances DO Primary Care Pro vider Unavailable Rosalva Stephen MD Primary Care Provider [phone] Encounter Details Date Type Department Care Team Description 02/10/2018 Trolley Coach Driver Report Medical Records [address] [place] [address] Juan Cintron PA-C Social History Tobacco Use Types Packs/Day [...] on filedocumented in this encounter Care Teams Agricultural Equipment Sales Engineer Relationship Specialty Start Date End Date [...] Medicine 08/05/19 03/05/21 Rosalva Stephen MD [address] [place] [address] [id number] PCP - General Internal Medicine 03/06/21 03/11/21 Frances Sung DO PCP - General Internal Medicine 03/12/21 03/31/21 Rosalva Stephen MD [address] [place] [address] [id number] PCP - General Internal Medicine 04/01/21 documented as of this encounter
--- OUTSIDE RECORDS SUMMARY | 2025-10-10 11:01 | XMS_ITS | Encounter Summary ---
Author Organization [facility] Prior to 08/12/[address] [place] [address] Care Team Providers Care Family Manager Name Role Phone Frances Sung DO Primary Care Pro vider Unavailable Rosalva Stephen MD Primary Care Provider [phone] Encounter Details Date Type Department Care Team Description 03/22/2021 Pt. Non Urgent Medic al Question Adult Medicine [address] [address] Frances Sung DO Social History Tobacco Use [...] MD PCP: No Specialty: Surgery - [facility] More about this provider Add to List [address] [place] [address] documented in this encounter Plan of Treatment Not on file documented as of this encounter Visit Diagnoses Not on filedocumented in this encounter Care Teams Family Manager Relationship Specialty Start Date End Date Frances Sung DO PCP - General Internal Medicine 03/12/21 03/31/21 Rosalva Stephen MD [address] [place] [address] PCP - General Internal Medicine 04/01/21 documented as of this encounter
--- OUTSIDE RECORDS SUMMARY | 2025-10-10 11:01 | XMS_ITS | Encounter Summary ---
Author Organization [facility] Prior to 08/12/[address] [place] [address] Care Team Providers Care System Controller Name Role Phone Krakowiak Colasacco, Frances DO [...] Unavailable Rosalva Stephen MD Primary Care Provider [phone] Krakowiak Colasacco, Frances DO Primary Care Pro vider Unavailable Rosalva Stephen MD Primary Care Provider [phone] Encounter Details Date Type Department Care Team Description 12/28/2017 Pt. Non Urgent Medical Question Physiatry - [place] [address] [place] [address] Na Reardon MD [address] [place] [address] Dr [place], [place] [id number] Social History Tobacco Use Types Packs/Day Years [...] on filedocumented in this encounter Care Teams System Controller Relationship Specialty Start Date End Date Frances [...] Medicine 08/05/19 03/05/21 Rosalva Stephen MD [address] [place] [address] PCP - General Internal Medicine 03/06/21 03/11/21 Frances Sung DO PCP - General Internal Medicine 03/12/21 03/31/21 Rosalva Stephen MD [address] [place] [address] PCP - General Internal Medicine 04/01/21 documented as of this encounter
--- OUTSIDE RECORDS SUMMARY | 2025-10-10 11:01 | XMS_ITS | Encounter Summary ---
Author Organization [facility] Prior to 08/12/[address] [place] [address] Care Team Providers Care Physician'S Aide Name Role Phone Krakowiak Colasacco, Frances DO Primary Care Pro vider Unavailable Doug Cosby MD Primary Care Provider Unavail able Krakowiak Colasacco, Frances DO Primary Care Pro vider Unavailable Milton Hummel Primary Care Provider Unav ailable Rj Lino MD Primary Care Provider Unava ilable Miltno Hummel Primary Care Provider Unav ailable Krakowiak Colasacco, Frances DO Primary Care Pro vider Unavailable Rosalva Stephen MD Primary Care Provider [phone] Krakowiak Colasacco, Frances DO Primary Care Pro vider Unavailable Rosalva Stephen MD Primary Care Provider [phone] Encounter Details Date Type Department Care Team Description 02/18/2018 [facility]p Clinical Research Report Medical Records [address] [place] [address] Kunal Villegas Social History Tobacco Use Types [...] on filedocumented in this encounter Care Teams Physician'S Aide Relationship Specialty Start Date End Date [...] Medicine 08/05/19 03/05/21 Rosalva Stephen MD [address] [place] [address] [id number] PCP - General Internal Medicine 03/06/21 03/11/21 Frances Sung DO PCP - General Internal Medicine 03/12/21 03/31/21 Rosalva Stephen MD [address] [place] [address] [phone] PCP - General Internal Medicine 04/01/21 documented as of this encounter
--- OUTSIDE RECORDS SUMMARY | 2025-10-10 11:01 | XMS_ITS | Encounter Summary ---
Author Organization [facility] Prior to 08/12/[address] [place] [address] Care Team Providers Care Principal Data Architect Name Role Phone Krakowiak Colasacco, Frances [...] Unavailable Rosalva Stephen MD Primary Care Provider [phone] Krakowiak Colasacco, Frances DO Primary Care Pro vider Unavailable Rosalva Stephen MD Primary Care Provider [phone] Encounter Details Date Type Department Care Team Description 04/29/2016 Controlled Substance Contract with [facility] Medical Records [address] [place] [address] Abstract, Provider Social History Tobacco Use Types [...] filedocumented in this encounter Care Teams Principal Data Architect Relationship Specialty Start Date End Date [...] Medicine 08/05/19 03/05/21 Rosalva Stephen MD [address] [place] [address] [id number] PCP - General Internal Medicine 03/06/21 03/11/21 Frances Sung DO PCP - General Internal Medicine 03/12/21 03/31/21 Rosalva Stephen MD [address] [place] [address] [id number] PCP - General Internal Medicine 04/01/21 documented as of this encounter
--- OUTSIDE RECORDS SUMMARY | 2025-10-10 11:01 | XMS_ITS | Encounter Summary ---
Author Organization [facility] Prior to 08/12/[address] [place] [address] Care Team Providers Care Geotechnical Laboratory Technician Name Role Phone Frances Sung DO Primary Care Pro vider Unavailable Rosalva Stephen MD Primary Care Provider [phone] Encounter Details Date Type Department Care Team Description 03/19/2021 Hospital Medical Records [address] [place] [address] Nereida Vazquez MD Social History Tobacco Use Types Packs/Day [...] on filedocumented in this encounter Care Teams Geotechnical Laboratory Technician Relationship Specialty Start Date End Date Frances Sung DO PCP - General Internal Medicine 03/12/21 03/31/21 Rosalva Stephen MD [address] [place] [address] PCP - General Internal Medicine 04/01/21 documented as of this encounter
--- OUTSIDE RECORDS SUMMARY | 2025-10-10 11:02 | XMS_ITS | Encounter Summary ---
Author Organization [facility] Prior to 08/12/[address] [place] [address] Care Team Providers Care International Student Advisor Name Role Phone Frances Sung DO Primary Care Pro vider Unavailable Milton Hummel Primary Care Provider Unav ailable Rj Lino MD Primary Care Provider Unava ilable Milton Hummel Primary Care Provider Unav ailable Frances Sung DO Primary Care Pro vider Unavailable Rosalva Stephen MD Primary Care Provider [phone] Frances Sung DO Primary Care Pro vider Unavailable Rosalva Stephen MD Primary Care Provider [phone] Encounter Details Date Type Department Care Team Description 11/09/2018 [facility] Controlled Substance Contract Medical Records [address] [place] [address] Abstract, Provider Social History Tobacco Use Types [...] on filedocumented in this encounter Care Teams International Student Advisor Relationship Specialty Start Date End Date Frances Sung DO PCP - General Internal Medicine 07/12/18 02/24/19 Milton Hummel PCP - General Internal Medicine 02/25/19 06/26/19 Rj Lino MD PCP - General Internal Medicine 06/27/19 07/05/19 Milton Hummel PCP - General Internal Medicine 07/06/19 08/04/19 Frances Sung, PCP - General Internal Medicine 08/05/19 03/05/21 Rosalva Stephen MD [address] [place] [address] PCP - General Internal Medicine 03/06/21 03/11/21 Frances Sung, PCP - General Internal Medicine 03/12/21 03/31/21 Rosalva Stephen MD [address] [place] [address] PCP - General Internal Medicine 04/01/21 documented as of this encounter
--- OUTSIDE RECORDS SUMMARY | 2025-10-10 11:02 | XMS_ITS | Encounter Summary ---
Author Organization [facility] Prior to 08/12/[address] [place] [address] Care Team Providers Care Online Marketing Analyst Name Role Phone Rosalva Stephen MD Primary Care Provider [phone] Encounter Details Date Type Department Care Team Description 01/14/2024 Reject Opener Report Medical Records [address] [place] [address] Sixto Olmedo DO Social History Tobacco Use [...] on filedocumented in this encounter Care Teams Online Marketing Analyst Relationship Specialty Start Date End Date Rosalva Stephen MD [address] [place], [place] [phone] PCP - General Internal Medicine 04/01/21 documented as of this encounter
--- OUTSIDE RECORDS SUMMARY | 2025-10-10 11:02 | XMS_ITS | Encounter Summary ---
Author Organization [facility] Prior to 08/12/[address] [place] [address] Care Team Providers Care Tower Erector Helper Name Role Phone Sharla Gaytan, Frances DO Primary Care Pro vider Unavailable Milton Hummel Primary Care Provider Unav ailable Rj Lino MD Primary Care Provider Unava ilable Milton Hummel Primary Care Provider Unav ailable Sharla Westo, Frances DO Primary Care Pro vider Unavailable Rosalva Stephen MD Primary Care Provider [phone] Krakojob Coltwylao, Frances DO Primary Care Pro vider Unavailable Rosalva Stephen MD Primary Care Provider [phone] Encounter Details Date Type Department Care Team Description 11/23/2018 Pt. Non Urgent Medical Question Physiatry - [address] [address] Na Reardon MD [address] [place] [address] Dr [place]I [place] [id number] Social History Tobacco Use Types Packs/Day Years [...] same Dr. Agarwal or Dr. Domingo at [facility]? documented in this encounter Plan of Treatment Not on file documented as of this encounter Visit Diagnoses Not on filedocumented in this encounter Care Teams Tower Erector Helper Relationship Specialty Start Date End Date Frances Sung DO PCP - General Internal Medicine 07/12/18 02/24/19 Milton Hummel PCP - General Internal Medicine 02/25/19 06/26/19 jR Lino MD PCP - General Internal Medicine 06/27/19 07/05/19 Milton Hummel PCP - General Internal Medicine 07/06/19 08/04/19 Frances Sung DO PCP - General Internal Medicine 08/05/19 03/05/21 Rosalva Stephen MD [address] [place] [address] PCP - General Internal Medicine 03/06/21 03/11/21 Frances Sung, PCP - General Internal Medicine 03/12/21 03/31/21 Rosalva Stephen MD [address] [place] [address] PCP - General Internal Medicine 04/01/21 documented as of this encounter
--- OUTSIDE RECORDS SUMMARY | 2025-10-10 11:02 | XMS_ITS | Encounter Summary ---
Author Organization [facility] Prior to 08/12/[address] [place] [address] Care Team Providers Care Electrical & Instrumentation Supervisor Name Role Phone Krakowiak Colasacco, Frances [...] Unavailable Rosalva Stephen MD Primary Care Provider [phone] Krakowiak Colasacco, Frances DO Primary Care Pro vider Unavailable Rosalva Stephen MD Primary Care Provider [phone] Encounter Details Date Type Department Care Team Description 12/03/2016 [facility] Medical Records [address] [place] [address] Abstract, Provider Social History Tobacco Use Types [...] filedocumented in this encounter Care Teams Electrical & Instrumentation Supervisor Relationship Specialty Start Date End Date [...] Medicine 08/05/19 03/05/21 Rosalva Stephen MD [address] [place] [address] [id number] PCP - General Internal Medicine 03/06/21 03/11/21 Frances Sung, PCP - General Internal Medicine 03/12/21 03/31/21 Rosalva Stephen MD [address] [place] [address] [phone] PCP - General Internal Medicine 04/01/21 documented as of this encounter
--- OUTSIDE RECORDS SUMMARY | 2025-10-10 11:02 | XMS_ITS | Encounter Summary ---
Author Organization [facility] Prior to 08/12/[address] [place] [address] Care Team Providers Care Prune Washer Name Role Phone Krakowiak Colasacco, Frances DO [...] Unavailable Rosalva Stephen MD Primary Care Provider [phone] Krakowiak Colasacco, Frances DO Primary Care Pro vider Unavailable Rosalva Stephen MD Primary Care Provider [phone] Encounter Details Date Type Department Care Team Description 03/03/2018 Transfer Records Medical Records [address] [place] [address] Abstract, Provider Social History Tobacco Use Types [...] on filedocumented in this encounter Care Teams Prune Washer Relationship Specialty Start Date End Date Frances [...] Medicine 08/05/19 03/05/21 Rosalva Stephen MD [address] [place] [address] [phone] PCP - General Internal Medicine 03/06/21 03/11/21 Frances Sung DO PCP - General Internal Medicine 03/12/21 03/31/21 Rosalva Stephen MD [address] [place] [address] [phone] PCP - General Internal Medicine 04/01/21 documented as of this encounter
--- OUTSIDE RECORDS SUMMARY | 2025-10-10 11:02 | XMS_ITS | Encounter Summary ---
Author Organization [facility] Prior to 08/12/[address] [place] [address] Care Team Providers Care Specimen Accessioner Name Role Phone Krakowiak Colasacco, Frances DO [...] Unavailable Rosalva Stephen MD Primary Care Provider [phone] Krakowiak Colasacco, Frances DO Primary Care Pro vider Unavailable Rosalva Stephen MD Primary Care Provider [phone] Encounter Details Date Type Department Care Team Description 10/21/2016 Pt. Non Urgent Medical Question Physiatry - [place] [address] [place] [address] Na Reardon MD [address] [place] [address] Dr [place], [place] [phone] Social History Tobacco Use Types Packs/Day Years [...] of this encounter Progress Notes * Elizabeth Prosper Hernandez - 10/21/2016 8:06 AM ESTFrom: Deb Malcolm To: Na Reardon MD Sent: 10/21/2016 7:45 AM EST Subject: shoulder pain, scapular pain, PT So I've had 3 sessions with PT and have been experiencing a significant increase in pain afterwards. My shoulder pain is not worse than when we started but I've been having increased scapular pain inmy back. I've had the scapular pain on and off for about 6 yrs and it has always previously been attributed to my cervical spinal issues. That pain went away completely for a year and a half after my2nd spinal fusion. It came back when I started to have the neck/shoulder stiffness/pain. I don't feel any of the nerve issues I felt before the fusion. There is no radiating pain down my arm/hand. I don't have neck pain either, just some tightness occasionally. Going to PT, the physical therapist initially attributed my scapular pain to the way i was guarding my shoulder and stated both of my scapulas appeared winged so my shoulders were rotated forward and i needed to work on correcting my posture. She gave me some exercises for this but after doing them, my pain in that area has intensified greatly to the point where I am not sleeping well and am needing pain meds way more often than i'd like to take them (almost twice daily since starting PT). My thoracic region feels like I've been in a minor car accident, banged up, sore, achy and it's leading to a lot of sleepless/restless nights. My thoracic area has never had an MRI despite my complaints of pain in my scapular region for so many years (because it was previously attributed as radiating pain from my cervical disks). My left scapula either tendon or muscle connected to my spine feels extremely tight. I have a sharp constantpain underneath the scapula close to my spine as well. This is on top of the constant achy/sorenessi feel across my mid back horizontally. 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 I was also told my vertebrae were irregularly shaped (due to my disk degenerative disease). PT needs an official order to work on my thoracic area since that's causing me a lot of pain and she is suggesting I see an orthopedist. She also suggested I get more detailed imaging of my thoracic area because she's doing very minimal, slow exercises with me and it's causing me a significant increase in pain. She said she will be sending you a note regarding all of this. I'm willing to push myself in PT but she doesn't want me to and would rather we figure out what we're actually dealing with. documented in this encounter Plan of Treatment Not on file documented as of this encounter Visit Diagnoses Not on filedocumented in this encounter Care Teams Specimen Accessioner Relationship Specialty Start Date End Date Frances [...] Medicine 08/05/19 03/05/21 Rosalva Stephen MD [address] [place] [address] [id number] PCP - General Internal Medicine 03/06/21 03/11/21 Frances Sung DO PCP - General Internal Medicine 03/12/21 03/31/21 Rosalva Stephen MD [address] [place] [address] [id number] PCP - General Internal Medicine 04/01/21 documented as of this encounter
--- OUTSIDE RECORDS SUMMARY | 2025-10-10 11:02 | XMS_ITS | Patient Health Record ---
Author Organization [facility] [address] Address [address] [place] [address] Care Team Providers Care Ocular Care Technician Name Role Phone Betito Rico Primary Care Provider Unavailab Jacquie Card Unavailable [phone] LAURI LEIVA Unavailable [phone] Allergies Allergen (clinical drug ingredient) Drug/Non Drug [...] Obstructive sleep ap aida (G47.33) Referral Organization [facility] Referring Provider First Name Jacquie Referring Provider Last Name Ted Referring Provider Speciality Internal M edicine Referred Provider Specialty Pulmonology General Notes Shweta Kirkland 08/2025 08:34:17 AM > referral form faxed to [phone] and pt given phone [phone] Clinical Notes Sparkle Reynolds 02:49:32 PM > [...] Status W/U Status Risk Notes Problem Overweight (144659866) Overweight (E66.3) Active confirmed Problem Obstructive sleep apnea (93910793) Obstructive sleep apnea (G47.33) Active confirmed Problem Obese class I (679569193432825 ) BMI 33.0-33.9,adult (Z68.33) Active confirmed Problem Body mass index 30.00 to 34.99 (633053547292017 ) BMI 31.0-31.9,adult (Z68.31) Active confirmed Problem Depression (041251647) Depression (F32.9) Active confirmed Problem Obesity (530469917) Moderate obesity (E66.9) Active confirmed Vital Signs Heart Rate 55 /min 08/14/2025 Oximetry 95 % 08/14/2025 Blood pressure diastolic 60 mm Hg 08/14/2025 Height 63 in 08/14/2025 Blood pressure systolic 100 mm Hg 08/14/2025 Weight 155.1 lbs 08/14/2025 BMI 27.47 kg/m2 08/14/2025 Encounters Encounter Location Date Provider Diagnosis [facility] [address] [address] 03/17/2025 Jacquie Normoyle Moderate obesity E66 .9 ; BMI 31.0-31.9,adult Z68.31 ; Obstructive sleep apnea G47.33 ; Depression F32.9 and Encounter for examination of blood pressure without abnormal findings Z01.30 [place] [address] 04/17/2025 Jacquie Normoyle BMI 33.0-33.9,adult Z68.33 ; Moderate obesity E66.9 ; Obstructive sleep apnea G47.33 ; Depression F32.9 and Encounter for examination of blood pressure without abnormal findings Z01.30 [facility] [address] [address] 05/22/2025 Jacquie Normoyle BMI 29.0-29.9,adult Z68.29 ; Obstructive sleep apnea G47.33 ; Moderate obesity E66.9 ; Depression F32.9 and Encounter for examination of blood pressure without abnormal findings Z01.30 [place] [address] [address] 06/19/2025 Jacquie Normoyle BMI 28.0-28.9,adult Z68.28 ; Obstructive sleep apnea G47.33 ; Depression F32.9 ; Moderate obesity E66.9 and Encounter for examination of blood pressure without abnormal findings Z01.30 [place] [address] [address] 07/17/2025 Jacquie Normoyle BMI 28.0-28.9,adult Z68.28 ; Obstructive sleep apnea G47.33 ; Depression F32.9 ; Moderate obesity E66.9 and Encounter for examination of blood pressure without abnormal findings Z01.30 [facility] [address] [place], [place] 08/14/2025 Jacquie Normoyle Overweight E66.3 ; B SC 26.0-26.9,adult Z68.26 ; Obstructive sleep apnea G47.33 ; Depression F32.9 and Encounter for examination of blood pressure without abnormal findings Z01.30 [facility] [address] [place], [place] 03/17/2025 Jacquie Normoyle [facility] [address] [place], [place] 03/22/2025 Jacquie Normoyle [facility] [address] [place] [address] 04/19/2025 Jacquie Normoyle [facility] [address] 04/19/2025 Jacquie Normoyle Moderate obesity E66 .[address] [facility] [address] [place] [address] 04/19/2025 Jacquie Normoyle Moderate obesity E66 .9 [facility] [address] [place], [place] 04/19/2025 LAURI CORTEST Moderate obesity E66 .9 [facility] [address] [place], [place] 05/02/2025 Jacquie Normoyle [facility] [address] [place], [place] 05/02/2025 Jacquie Normoyle [facility] [address] [place] [address] 06/19/2025 Jacquie Normoyle Obstructive sleep apnea G47.33 [facility] [address] [place], [place] 08/14/2025 Jacquie Normoyle [facility] [address] [place], [place] 04/19/2025 Jacquie Normoyle [facility] [address] [place], [place] 05/05/2025 Jacquie Normoyle [facility] [address] [address] 06/15/2025 Jacquie Normoyle [facility] [address] [address] 06/23/2025 Jacquie Normoyle [facility] [address] [address] 06/23/2025 Jacquie Normoyle Moderate obesity E66 .9 [facility] [address] [address] 06/29/2025 Jacquie Normoyle [facility] [address] [address] 06/29/2025 Jacquie Normoyle [facility] [address] [address] 08/08/2025 Jacquie Normoyle Assessments Encounter Date Diagnosis [...] Patient follows with sleep study service in [facility], and is requesting referral to nearby sleep medicine services. She does have a CPAP at home. Continue nocturnal CPAP. Start Zepbound 2.5 mg weekly injections to help with GEORGES. Cortisol social work case manager started today. Referral to sleep medicine [...] Consider using apps like 7 minute excercise, [employer]pal, lose it, stick as needed for self-monitoring and weight management. Consider group exercises. Consider hiring a personal care worker. Regular exercise is castro to sustainable health [...] counseling and psychiatry and Dr Chambers at [facility]. We would like to cover regular topics [...] Dictation was accomplished with the use of [employer] voice recognition software, prone to medical misidentifications [...] Patient follows with sleep study service in [facility], and is requesting referral to nearby sleep medicine services. She does have a CPAP at home. Continue nocturnal CPAP. Start Zepbound 2.5 mg weekly injections to help with GEORGES. Cortisol social work case manager started today. Referral to sleep medicine [...] Consider using apps like 7 minute excercise, [employer], lose it, stick as needed for self-monitoring and weight management. Consider group exercises. Consider hiring a personal care worker. Regular exercise is castro to sustainable health [...] counseling and psychiatry and Dr Chambers at [facility]. We would like to cover regular topics [...] Dictation was accomplished with the use of [employer] voice recognition software, prone to medical misidentifications [...] Consider using apps like 7 minute excercise, [employer], lose it, stick as needed for self-monitoring and weight management. Consider group exercises. Consider hiring a personal care worker. Regular exercise is castro to sustainable health [...] counseling and psychiatry and Dr Chambers at [facility]. We would like to cover regular topics [...] Dictation was accomplished with the use of [employer] voice recognition software, prone to medical misidentifications [...] Consider using apps like 7 minute excercise, [employer], lose it, stick as needed for self-monitoring and weight management. Consider group exercises. Consider hiring a personal care worker. Regular exercise is castro to sustainable health [...] counseling and psychiatry and Dr Chambers at [facility]. We would like to cover regular topics [...] Dictation was accomplished with the use of [employer] voice recognition software, prone to medical misidentifications [...] Consider using apps like 7 minute excercise, [employer], lose it, stick as needed for self-monitoring and weight management. Consider group exercises. Consider hiring a personal care worker. Regular exercise is castro to sustainable health [...] counseling and psychiatry and Dr Chambers at [facility]. We would like to cover regular topics [...] Dictation was accomplished with the use of [employer] voice recognition software, prone to medical misidentifications [...] Consider group exercises. Consider hiring a personal care worker. Regular exercise is castro to sustainable health [...] counseling and psychiatry and Dr Chambers at [facility]. We would like to cover regular topics [...] Dictation was accomplished with the use of [employer] voice recognition software, prone to medical misidentifications [...] Dictation was accomplished with the use of [employer] voice recognition software, prone to medical misidentifications [...] Dictation was accomplished with the use of [employer] voice recognition software, prone to medical misidentifications [...] Consider using apps like 7 minute excercise, [employer]pal, lose it, stick as needed for self-monitoring and weight management. Consider group exercises. Consider hiring a personal care worker. Regular exercise is csatro to sustainable health and prevents as a [...] counseling and psychiatry and Dr Chambers at [facility]. We would like to cover regular topics [...] Dictation was accomplished with the use of [employer] voice recognition software, prone to medical misidentifications [...] Consider group exercises. Consider hiring a personal care worker. Regular exercise is castro to sustainable health [...] counseling and psychiatry and Dr Chambers at [facility]. We would like to cover regular topics [...] Dictation was accomplished with the use of [employer] voice recognition software, prone to medical misidentifications [...] Consider group exercises. Consider hiring a personal care worker. Regular exercise is castro to sustainable health [...] counseling and psychiatry and Dr Chambers at [facility]. We would like to cover regular topics [...] Dictation was accomplished with the use of [employer] voice recognition software, prone to medical misidentifications [...] Consider using apps like 7 minute excercise, [employer], lose it, stick as needed for self-monitoring and weight management. Consider group exercises. Consider hiring a personal care worker. Regular exercise is castro to sustainable health [...] counseling and psychiatry and Dr Chambers at [facility]. We would like to cover regular topics [...] Dictation was accomplished with the use of [employer] voice recognition software, prone to medical misidentifications [...] Consider using apps like 7 minute excercise, [employer], lose it, stick as needed for self-monitoring and weight management. Consider group exercises. Consider hiring a personal care worker. Regular exercise is castro to sustainable health [...] counseling and psychiatry and Dr Chambers at [facility]. We would like to cover regular topics [...] Dictation was accomplished with the use of [employer] voice recognition software, prone to medical misidentifications [...] Patient follows with sleep study service in [facility], and is requesting referral to nearby sleep medicine services. She does have a CPAP at home. Continue nocturnal CPAP. Start Zepbound 2.5 mg weekly injections to help with GEORGES. Cortisol social work case manager started today. Referral to sleep medicine [...] Consider group exercises. Consider hiring a personal care worker. Regular exercise is castro to sustainable health [...] counseling and psychiatry and Dr Chambers at [facility]. We would like to cover regular topics [...] Dictation was accomplished with the use of [employer] voice recognition software, prone to medical misidentifications [...] Dictation was accomplished with the use of [employer] voice recognition software, prone to medical misidentifications [...] Patient follows with sleep study service in [facility], and is requesting referral to nearby sleep medicine services. She does have a CPAP at home. Continue nocturnal CPAP. Start Zepbound 2.5 mg weekly injections to help with GEORGES. Cortisol social work case manager started today. Referral to sleep medicine [...] Consider using apps like 7 minute excercise, [employer], lose it, stick as needed for self-monitoring and weight management. Consider group exercises. Consider hiring a personal care worker. Regular exercise is castro to sustainable health [...] counseling and psychiatry and Dr Chambers at [facility]. We would like to cover regular topics [...] Dictation was accomplished with the use of [employer] voice recognition software, prone to medical misidentifications [...] Consider group exercises. Consider hiring a personal care worker. Regular exercise is castro to sustainable health [...] counseling and psychiatry and Dr Chambers at [facility]. We would like to cover regular topics [...] Dictation was accomplished with the use of [employer] voice recognition software, prone to medical misidentifications [...] Consider using apps like 7 minute excercise, [employer], lose it, stick as needed for self-monitoring and weight management. Consider group exercises. Consider hiring a personal care worker. Regular exercise is castro to sustainable health [...] counseling and psychiatry and Dr Chambers at [facility]. We would like to cover regular topics [...] Dictation was accomplished with the use of [employer] voice recognition software, prone to medical misidentifications [...] Consider using apps like 7 minute excercise, [employer], lose it, stick as needed for self-monitoring and weight management. Consider group exercises. Consider hiring a personal care worker. Regular exercise is castro to sustainable health [...] counseling and psychiatry and Dr Chambers at [facility]. We would like to cover regular topics [...] Dictation was accomplished with the use of [employer] voice recognition software, prone to medical misidentifications [...] Consider using apps like 7 minute excercise, [employer], lose it, stick as needed for self-monitoring and weight management. Consider group exercises. Consider hiring a personal care worker. Regular exercise is castro to sustainable health [...] counseling and psychiatry and Dr Chambers at [facility]. We would like to cover regular topics [...] Dictation was accomplished with the use of [employer] voice recognition software, prone to medical misidentifications [...] Consider using apps like 7 minute excercise, [employer], lose it, stick as needed for self-monitoring and weight management. Consider group exercises. Consider hiring a personal care worker. Regular exercise is castro to sustainable health [...] counseling and psychiatry and Dr Chambers at [facility]. We would like to cover regular topics [...] Dictation was accomplished with the use of [employer] voice recognition software, prone to medical misidentifications [...] Dictation was accomplished with the use of [employer] voice recognition software, prone to medical misidentifications [...] Dictation was accomplished with the use of [employer] voice recognition software, prone to medical misidentifications [...] Consider using apps like 7 minute excercise, [employer], lose it, stick as needed for self-monitoring and weight management. Consider group exercises. Consider hiring a personal care worker. Regular exercise is castro to sustainable health [...] counseling and psychiatry and Dr Chambers at [facility]. We would like to cover regular topics [...] Dictation was accomplished with the use of [employer] voice recognition software, prone to medical misidentifications [...] Consider group exercises. Consider hiring a personal care worker. Regular exercise is castro to sustainable health [...] counseling and psychiatry and Dr Chambers at [facility]. We would like to cover regular topics [...] Dictation was accomplished with the use of [employer] voice recognition software, prone to medical misidentifications [...] Consider using apps like 7 minute excercise, [employer], lose it, stick as needed for self-monitoring and weight management. Consider group exercises. Consider hiring a personal care worker. Regular exercise is castro to sustainable health [...] counseling and psychiatry and Dr Chambers at [facility]. We would like to cover regular topics [...] Dictation was accomplished with the use of [employer] voice recognition software, prone to medical misidentifications [...] Consider group exercises. Consider hiring a personal care worker. Regular exercise is castro to sustainable health [...] counseling and psychiatry and Dr Chambers at [facility]. We would like to cover regular topics [...] Dictation was accomplished with the use of [employer] voice recognition software, prone to medical misidentifications [...] Consider using apps like 7 minute excercise, [employer], lose it, stick as needed for self-monitoring and weight management. Consider group exercises. Consider hiring a personal care worker. Regular exercise is castro to sustainable health [...] counseling and psychiatry and Dr Chambers at [facility]. We would like to cover regular topics [...] Dictation was accomplished with the use of [employer] voice recognition software, prone to medical misidentifications [...] Patient follows with sleep study service in [facility], and is requesting referral to nearby sleep medicine services. She does have a CPAP at home. Continue nocturnal CPAP. Start Zepbound 2.5 mg weekly injections to help with GEORGES. Cortisol social work case manager started today. Referral to sleep medicine [...] Consider using apps like 7 minute excercise, [employer], lose it, stick as needed for self-monitoring and weight management. Consider group exercises. Consider hiring a personal care worker. Regular exercise is castro to sustainable health [...] counseling and psychiatry and Dr Chambers at [facility]. We would like to cover regular topics [...] Dictation was accomplished with the use of [employer] voice recognition software, prone to medical misidentifications [...] Consider using apps like 7 minute excercise, [employer], lose it, stick as needed for self-monitoring and weight management. Consider group exercises. Consider hiring a personal care worker. Regular exercise is castro to sustainable health [...] counseling and psychiatry and Dr Chambers at [facility]. We would like to cover regular topics [...] Dictation was accomplished with the use of [employer] 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
--- OUTSIDE RECORDS SUMMARY | 2025-10-10 11:02 | XMS_ITS | Encounter Summary ---
Author Organization [facility] Prior to 08/12/[address] [place] [address] Care Team Providers Care Chess Instructor Name Role Phone Rosalva Stephen MD Primary Care Provider [phone] Encounter Details Date Type Department Care Team Description 03/16/2024 [facility] Report Medical Records [address] [place] [address] Sixto Olmedo DO Social History Tobacco Use [...] on filedocumented in this encounter Care Teams Chess Instructor Relationship Specialty Start Date End Date Rosalva Stephen MD [address] [place], [place] [id number] PCP - General Internal Medicine 04/01/21 documented as of this encounter
--- OUTSIDE RECORDS SUMMARY | 2025-10-10 11:02 | XMS_ITS | Encounter Summary ---
Author Organization [facility] Prior to 08/12/[address] [place] [address] Care Team Providers Care Fleece Tier Name Role Phone [place] Colasacco, Frances DO Primary Care Pro vider Unavailable Duog Cosby MD Primary Care Provider Unavail able [place] Colasacco, Frances DO Primary Care Pro vider Unavailable Milton Hummel Primary Care Provider Unav ailable Rj Lino MD Primary Care Provider Unava ilable Milton Hummel Primary Care Provider Unav ailable [place] Colasacco, Frances DO Primary Care Pro vider Unavailable Rosalva Stephen MD Primary Care Provider [phone] [place] Colasacco, Frances DO Primary Care Pro vider Unavailable Rosalva Stephen MD Primary Care Provider [phone] Encounter Details Date Type Department Care Team Description 11/10/2016 [facility] Medical Records [address] [place] [address] Abstract, Provider Social History Tobacco Use Types [...] on filedocumented in this encounter Care Teams Fleece Tier Relationship Specialty Start Date End Date Frances [...] Medicine 08/05/19 03/05/21 Rosalva Stephen MD [address] [place] [address] [id number] PCP - General Internal Medicine 03/06/21 03/11/21 Frances Sung, PCP - General Internal Medicine 03/12/21 03/31/21 Rosalva Stephen MD [address] [place] [address] [id number] PCP - General Internal Medicine 04/01/21 documented as of this encounter
--- OUTSIDE RECORDS SUMMARY | 2025-10-10 11:02 | XMS_ITS | Encounter Summary ---
Author Organization [facility] Prior to 08/12/[address] [place] [address] Care Team Providers Care Harness And Bag Inspector Name Role Phone Frances Sung DO Primary Care Pro vider Unavailable Rosalva Stephen MD Primary Care Provider [phone] Frances Sung DO Primary Care Pro vider Unavailable Rosalva Stephen MD Primary Care Provider [phone] Encounter Details Date Type Department Care Team Description 12/07/2019 Refill Physiatry - [address] [address] Na Reardon MD [address] [place] [address] Dr [place]I [place] [id number] Social History Tobacco Use Types Packs/Day Years [...] knee documented in this encounter Care Teams Harness And Bag Inspector Relationship Specialty Start Date End Date Frances Sung DO PCP - General Internal Medicine 08/05/19 03/05/21 Rosalva Stephen MD [address] [place] [id number] PCP - General Internal Medicine 03/06/21 03/11/21 Frances Sung DO PCP - General Internal Medicine 03/12/21 03/31/21 Rosalva Stephen MD [address] [place] [id number] PCP - General Internal Medicine 04/01/21 documented as of this encounter
--- OUTSIDE RECORDS SUMMARY | 2025-10-10 11:02 | XMS_ITS | Encounter Summary ---
Author Organization [facility] Prior to 08/12/[address] [place] [address] Care Team Providers Care Cinder Worker Name Role Phone Frances Sung DO Primary Care Pro vider Unavailable Rosalva Stephen MD Primary Care Provider [phone] Frances Sung DO Primary Care Pro vider Unavailable Rosalva Stephen MD Primary Care Provider [phone] Encounter Details Date Type Department Care Team Description 11/30/2019 Release of Information Medical Records [address] [place] [id number] Abstract, Provider Social History Tobacco Use Types [...] on filedocumented in this encounter Care Teams Cinder Worker Relationship Specialty Start Date End Date Frances Sung DO PCP - General Internal Medicine 08/05/19 03/05/21 Rosalva Stephen MD [address] [place] [address] [phone] PCP - General Internal Medicine 03/06/21 03/11/21 Frances Sung DO PCP - General Internal Medicine 03/12/21 03/31/21 Rosalva Stephen MD [address] [place] [phone] PCP - General Internal Medicine 04/01/21 documented as of this encounter
--- OUTSIDE RECORDS SUMMARY | 2025-10-10 11:02 | XMS_ITS | Encounter Summary ---
Author Organization [facility] Prior to 08/12/[address] [place] [address] 23106 Care Team Providers Care Dosier Operator Name Role Phone Krakowiak Colasacco, Frances [...] Unavailable Rosalva Stephen MD Primary Care Provider [phone] Krakowiak Colasacco, Frances DO Primary Care Pro vider Unavailable Rosalva Stephen MD Primary Care Provider [phone] Encounter Details Date Type Department Care Team Description 11/10/2016 Release of Information Medical Records [address] [place] [address] 34378 Abstract, Provider Social History Tobacco Use Types [...] on filedocumented in this encounter Care Teams Dosier Operator Relationship Specialty Start Date End Date [...] Medicine 08/05/19 03/05/21 Rosalva Stephen MD [address] [place] [address] [phone] PCP - General Internal Medicine 03/06/21 03/11/21 Frances Sung, PCP - General Internal Medicine 03/12/21 03/31/21 Rosalva Stephen MD [address] [place] [address] [id number] PCP - General Internal Medicine 04/01/21 documented as of this encounter
--- OUTSIDE RECORDS SUMMARY | 2025-10-10 11:02 | XMS_ITS | Encounter Summary ---
Author Organization [facility] Prior to 08/12/[address] [place] [address] 95975 Care Team Providers Care Machine Tool Dresser Name Role Phone Rosalva Stephen MD Primary Care Provider [phone] Encounter Details Date Type Department Care Team Description 03/26/2023 Hydraulic Oil Tool Operator Report Medical Records [address] [place] [address] Sixto Olmedo DO Social History Tobacco Use [...] filedocumented in this encounter Care Teams Machine Tool Dresser Relationship Specialty Start Date End Date Rosalva Stephen MD [address] [place], [place] [phone] PCP - General Internal Medicine 04/01/21 documented as of this encounter
--- OUTSIDE RECORDS SUMMARY | 2025-10-10 11:02 | XMS_ITS | Encounter Summary ---
Author Organization [facility] Prior to 08/12/[address] [place] [address] 72849 Care Team Providers Care Ironer Or Presser Name Role Phone Krakowiak Colasacco, Frances DO [...] Unavailable Rosalva Stephen MD Primary Care Provider [phone] Krakowiak Colasacco, Frances DO Primary Care Pro vider Unavailable Rosalva Stephen MD Primary Care Provider [phone] Encounter Details Date Type Department Care Team Description 02/22/2018 Maintenance And Operations Supervisor Report Medical Records [address] [place] [address] 98257 Kunal Villegas Social History Tobacco Use Types [...] on filedocumented in this encounter Care Teams Ironer Or Presser Relationship Specialty Start Date End Date [...] Medicine 08/05/19 03/05/21 Rosalva Stephen MD [address] [place] [address] [id number] PCP - General Internal Medicine 03/06/21 03/11/21 Frances Sung DO PCP - General Internal Medicine 03/12/21 03/31/21 Rosalva Stephen MD [address] [place] [address] [id number] PCP - General Internal Medicine 04/01/21 documented as of this encounter
--- OUTSIDE RECORDS SUMMARY | 2025-10-10 11:02 | XMS_ITS | Encounter Summary ---
Author Organization [facility] Prior to 08/12/[address] [place] [address] 0[address]59 Care Team Providers Care Environmental Research Project Manager Name Role Phone Sharla Gaytan, Frances DO Primary Care Pro vider Unavailable Milton Hummel Primary Care Provider Unav ailable Rj Lino MD Primary Care Provider Unava ilable Milton Hummel Primary Care Provider Unav ailable Sharla Westo, Frances DO Primary Care Pro vider Unavailable Rosalva Stephen MD Primary Care Provider [phone] Krakojob Coltwylao, Frances DO Primary Care Pro vider Unavailable Rosalva Stephen MD Primary Care Provider [phone] Encounter Details Date Type Department Care Team Description 11/18/2018 Pt. Non Urgent Medical Question Physiatry - [address] [address] Na Reardon MD [address] [place] [address] Dr ARTI [place] [id number] Social History Tobacco Use Types Packs/Day Years [...] filedocumented in this encounter Care Teams Environmental Research Project Manager Relationship Specialty Start Date End Date Frances Sung DO PCP - General Internal Medicine 07/12/18 02/24/19 Milton Hummel PCP - General Internal Medicine 02/25/19 06/26/19 Rj Lino MD PCP - General Internal Medicine 06/27/19 07/05/19 Milton Hummel PCP - General Internal Medicine 07/06/19 08/04/19 Frances Sung DO PCP - General Internal Medicine 08/05/19 03/05/21 Rosalva Stephen MD [address] [place] [address] PCP - General Internal Medicine 03/06/21 03/11/21 Frances Sung DO PCP - General Internal Medicine 03/12/21 03/31/21 Rosalva Stephen MD [address] [place] [address] 68693 PCP - General Internal Medicine 04/01/21 documented as of this encounter
--- OUTSIDE RECORDS SUMMARY | 2025-10-10 11:02 | XMS_ITS | Encounter Summary ---
Author Organization [facility] Prior to 08/12/[address] [place] [address]137 Care Team Providers Care Metal Cut Off Saw Operator Name Role Phone Krakowiak Colasacco, Frances [...] Unavailable Rosalva Stephen MD Primary Care Provider [phone] Krakowiak Colasacco, Frances DO Primary Care Pro vider Unavailable Rosalva Stephen MD Primary Care Provider [phone] Encounter Details Date Type Department Care Team Description 02/09/2017 [facility] Medical Records [address] [place] [address] 24853 Abstract, Provider Social History Tobacco Use Types [...] filedocumented in this encounter Care Teams Metal Cut Off Saw Operator Relationship Specialty Start Date End [...] Medicine 08/05/19 03/05/21 Rosalva Stephen MD [address] [place] [address] [id number] PCP - General Internal Medicine 03/06/21 03/11/21 Frances Sung, PCP - General Internal Medicine 03/12/21 03/31/21 Rosalva Stephen MD [address] [place] [address] [id number] PCP - General Internal Medicine 04/01/21 documented as of this encounter
--- OUTSIDE RECORDS SUMMARY | 2025-10-10 11:02 | XMS_ITS | Encounter Summary ---
Author Organization [facility] Prior to 08/12/[address] [place] [address] 21838 Care Team Providers Care Polisher Balance Screwhead Name Role Phone Krakowiak Colasacco, Frances DO [...] Unavailable Rosalva Stephen MD Primary Care Provider [phone] Krakowiak Colasacco, Frances DO Primary Care Pro vider Unavailable Rosalva Stephen MD Primary Care Provider [phone] Encounter Details Date Type Department Care Team Description 02/19/2018 [facility] Medical Records [address] [place] [address] 19330 Abstract, Provider Social History Tobacco Use Types [...] Screwhead Relationship Specialty Start Date End Date Frances [...] Medicine 08/05/19 03/05/21 Rosalva Stephen MD [address] [place] [address] [phone] PCP - General Internal Medicine 03/06/21 03/11/21 Frances Sung, PCP - General Internal Medicine 03/12/21 03/31/21 Rosalva Stephen MD [address] [place] [address] [id number] PCP - General Internal Medicine 04/01/21 documented as of this encounter
--- OUTSIDE RECORDS SUMMARY | 2025-10-10 11:02 | XMS_ITS | Encounter Summary ---
Author Organization [facility] Prior to 08/12/[address] [place] [address] 59812 Care Team Providers Care Life Skills Coach Name Role Phone Krakowiak Colasacco, Frances DO [...] Unavailable Rosalva Stephen MD Primary Care Provider [phone] Krakowiak Colasacco, Frances DO Primary Care Pro vider Unavailable Rosalva Stephen MD Primary Care Provider [phone] Encounter Details Date Type Department Care Team Description 03/01/2018 Keno Clerk Report Medical Records [address] [place] [address] Joseluis Henson MD Social History Tobacco Use [...] on filedocumented in this encounter Care Teams Life Skills Coach Relationship Specialty Start Date End Date [...] Medicine 08/05/19 03/05/21 Rosalva Stephen MD [address] [place] [address] [phone] PCP - General Internal Medicine 03/06/21 03/11/21 Frances Sung DO PCP - General Internal Medicine 03/12/21 03/31/21 Rosalva Stephen MD [address] [place] [address] [id number] PCP - General Internal Medicine 04/01/21 documented as of this encounter
--- OUTSIDE RECORDS SUMMARY | 2025-10-10 11:02 | XMS_ITS | Encounter Summary ---
Author Organization [facility] Prior to 08/12/[address] [place] [address] 29978 Care Team Providers Care Station Baggage Agent Name Role Phone Krakowiak Colasacco, Frances DO [...] Unavailable Rosalva Stephen MD Primary Care Provider [phone] Krakowiak Colasacco, Frances DO Primary Care Pro vider Unavailable Rosalva Stephen MD Primary Care Provider [phone] Reason for Visit * Reason [place] Date Comments Urine Drug Screen 02/05/2017 [facility] Pill Count 02/19/2017 Encounter Details Date Type Department Care Team Description 02/05/2017 Telephone Physiatry - [address] [id number] Na Reardon MD [address] [place] [address] [place] [address] Urine Drug Screen; [...] a message to call me back at [phone] When patient calls please DO NOT take a message, transfer her to the physiatry dept, my ext is [phone] * Telephone Encounter - [place] Cheng M.A. - 02/18/2017 9:35 AM EDT Called patient at listed phone number, No answer, left a message to call Dept back at [phone] * Telephone Encounter - Alyssa Lyon L.P.NWild [...] of other medications Expected: 02/18/2017, Expires: 02/18/2018 [facility] DRUG SCREENING OPIATES 1 OR MORE Lab Routine Encounter for long-term (current) use of other medications Expected: 02/18/2017, Expires: 02/18/2018 [facility] DRUG SCREENING OXYCODONE Lab Routine Encounter for long-term (current) use of other medications Expected: 02/18/2017, Expires: 02/18/2018 [facility] DRUG SCREEN QUANT AMPHETAMINES 3 OR 4 Lab Routine Encounter for long-term (current) use of other medications Expected: 02/18/2017, Expires: 02/18/2018 [facility] DRUG/SUBSTANCE DEFINITIVE QUAL/QUANT NOS 1-3 Lab Routine Encounter for long-term (current) use of other medications Expected: 02/18/2017, Expires: 02/18/2018 [facility] DRUG SCREENING BENZODIAZEPINES 1-12 Lab Routine [...] Negative . ng/mL 02/25 8:38 AM EDT [facility] HYDROMORPHONE UR GCMS Negative . ng/mL 02/25/2017 8:38 AM EDT [facility] [employer] Comment: This test was developed and its performance characteristics determined by [facility]. It has not been cleared or approved by the Food and Drug Administration. Performed at: [facility] [address] [id number] Welt Butter Hand: Hector Mckenna MD, Phone: [phone] 02/19/2017 11:5 1 AM EDT 02/19/2017 11:51 AM EDT Na [facility]ardon MD [facility] * (ABNORMAL) OXYCODONE, URINE (02/19/2017 11:51 AM EDT) URINE OXYCODONE LEVEL POSITIVE( A) NEGATIVE 02/19/2017 7:04 PM EDT [facility] Comment: Semi-quantitative urine assay for screening purposes only. Unconfirmed screening results should not be used for non-medical purposes. ALTERNATE METHOD CONFIRMATION DONE UPON REQUEST ONLY 02/19/2017 11:5 1 AM EDT 02/19/2017 11:51 AM EDT Na Reardon MD LAB Performing Organization Address [facility] Co de Phone Number [address] * (ABNORMAL) DRUG OF ABUSE SCREEN (02/19/2017 11:51 AM EDT) AMPHETAMINE, URINE NEGATIVE NEGATIVE 02/19/2017 5:28 PM EDT [facility] BARBITURATES, URINE NEGATIVE NEGATIVE 02/19/2017 5:28 PM T [facility] BENZODIAZEPINE, URINE POSITIVE(A) NEGATIVE 02/19/2017 7:04 PM [facility] Comment: RECHECKED Semi-quantitative urine assay for screening purposes only. Unconfirmed screening results should not be used for non-medical purposes. ALTERNATE METHOD CONFIRMATION DONE UPON REQUEST ONLY COCAINE, URINE NEGATIVE NEGATIVE 02/19/2017 5:28 PM EDT [facility] OPIATES, URINE NEGATIVE NEGATIVE 02/19/2017 5:28 PM T [facility] MARIJUANA(THC), URINE NEGATIVE NEGATIVE 02/19/2017 5:28 PM [facility] 02/19/2017 11:5 1 AM EDT 02/19/2017 11:51 AM EDT Na Reardon MD LAB Performing Organization Address [facility] Co de Phone Number [address] documented in this encounter Visit Diagnoses Diagnosis Encounter for long-term (current) use of other medications- Primary Medication monitoring encounter Encounter for therapeutic drug monitoring documented in this encounter Care Teams Station Baggage Agent Relationship Specialty Start Date End Date [...] Medicine 08/05/19 03/05/21 Rosalva Stephen MD [address] [place] [address] 72028 PCP - General Internal Medicine 03/06/21 03/11/21 Frances Sung, PCP - General Internal Medicine 03/12/21 03/31/21 Rosalva Stephen MD [address] [place] [address] 16547 PCP - General Internal Medicine 04/01/21 documented as of this encounter
--- OUTSIDE RECORDS SUMMARY | 2025-10-10 11:02 | XMS_ITS | Encounter Summary ---
Author Organization [facility] Prior to 08/12/[address] [place] [address] 83627 Care Team Providers Care Hearing Impaired Teacher Name Role Phone Krakowiak Colasacco, Frances [...] Unavailable Rosalva Stephen MD Primary Care Provider [phone] Krakowiak Colasacco, Frances DO Primary Care Pro vider Unavailable Rosalva Stephen MD Primary Care Provider [phone] Encounter Details Date Type Department Care Team Description 11/06/2016 Controlled Substance Plan Medical Records [address] [place] [address] 90290 Abstract, Provider Social History Tobacco Use Types [...] on filedocumented in this encounter Care Teams Hearing Impaired Teacher Relationship Specialty Start Date End Date [...] Medicine 08/05/19 03/05/21 Rosalva Stephen MD [address] [place] [address] [phone] PCP - General Internal Medicine 03/06/21 03/11/21 Frances Sung, PCP - General Internal Medicine 03/12/21 03/31/21 Rosalva Stephen MD [address] [place] [address] [phone] PCP - General Internal Medicine 04/01/21 documented as of this encounter
--- OUTSIDE RECORDS SUMMARY | 2025-10-10 11:02 | XMS_ITS | Encounter Summary ---
Author Organization [facility] Prior to 08/12/[address] [place] [address] 18933 Care Team Providers Care Conservation Educator Name Role Phone Krakowiak Colasacco, Frances DO [...] Unavailable Rosalva Stephen MD Primary Care Provider [phone] Krakowiak Colasacco, Frances DO Primary Care Pro vider Unavailable Rosalva Stephen MD Primary Care Provider [phone] Encounter Details Date Type Department Care Team Description 10/08/2016 Plodder Operator Report Medical Records [address] [place] [address] 6[address]36 Rehab., Can Social History Tobacco Use Types [...] on filedocumented in this encounter Care Teams Conservation Educator Relationship Specialty Start Date End Date Frances [...] Medicine 08/05/19 03/05/21 Rosalva Stephen MD [address] [place] [address] [phone] PCP - General Internal Medicine 03/06/21 03/11/21 Frances Sung DO PCP - General Internal Medicine 03/12/21 03/31/21 Rosalva Stephen MD [address] [place] [address] [phone] PCP - General Internal Medicine 04/01/21 documented as of this encounter
--- OUTSIDE RECORDS SUMMARY | 2025-10-10 11:02 | XMS_ITS | Encounter Summary ---
Author Organization [facility] Prior to 08/12/[address] [place] [address] 08808 Care Team Providers Care Chemical Production Technician Name Role Phone Rosalva Stephen MD Primary Care Provider [phone] Encounter Details Date Type Department Care Team Description 05/17/2024 Foam Gun Operator Report Medical Records [address] [place] [address] Sixto Olmedo DO Social History Tobacco Use [...] filedocumented in this encounter Care Teams Chemical Production Technician Relationship Specialty Start Date End Date Rosalva Stephen MD [address] [place], [place] [phone] PCP - General Internal Medicine 04/01/21 documented as of this encounter
--- OUTSIDE RECORDS SUMMARY | 2025-10-10 11:02 | XMS_ITS | Encounter Summary ---
Author Organization [facility] Prior to 08/12/[address] [place] [address] 83897 Care Team Providers Care Paraffin Plant Operator Name Role Phone Rosalva Stephen MD Primary Care Provider [phone] Encounter Details Date Type Department Care Team Description 04/29/2023 Electronics Scale Tester Report Medical Records [address] [place] [address] Sixto Olmedo DO Social History Tobacco Use [...] on filedocumented in this encounter Care Teams Paraffin Plant Operator Relationship Specialty Start Date End Date Rosalva Stephen MD [address] [place], [place] [phone] PCP - General Internal Medicine 04/01/21 documented as of this encounter
--- OUTSIDE RECORDS SUMMARY | 2025-10-10 11:02 | XMS_ITS | Encounter Summary ---
Author Organization [facility] Prior to 08/12/[address] [place] [address] 46301 Care Team Providers Care Ostomy Nurse Name Role Phone Krakowiak Colasacco, Frances DO [...] Unavailable Rosalva Stephen MD Primary Care Provider [phone] Krakowiak Colasacco, Frances DO Primary Care Pro vider Unavailable Rosalva Stephen MD Primary Care Provider [phone] Encounter Details Date Type Department Care Team Description 11/17/2016 Network Support Specialist Report Medical Records [address] [place] [address] Rehab., Can Social History Tobacco Use Types [...] on filedocumented in this encounter Care Teams Ostomy Nurse Relationship Specialty Start Date End Date Frances [...] Medicine 08/05/19 03/05/21 Rosalva Stephen MD [address] [place] [address] [phone] PCP - General Internal Medicine 03/06/21 03/11/21 Frances Sung DO PCP - General Internal Medicine 03/12/21 03/31/21 Rosalva Stephen MD [address] [place] [address] [phone] PCP - General Internal Medicine 04/01/21 documented as of this encounter
--- OUTSIDE RECORDS SUMMARY | 2025-10-10 11:02 | XMS_ITS | Encounter Summary ---
Author Organization [facility] Prior to 08/12/[address] [place] [address] 40128 Care Team Providers Care Insurance Healthcare Consultant Name Role Phone Krakowiak Colpriyankacco, Frances DO [...] Unavailable Rosalva Stephen MD Primary Care Provider [phone] Krakowiak Colasacco, Frances DO Primary Care Pro vider Unavailable Rosalva Stephen MD Primary Care Provider [phone] Reason for Visit * Reason Onset Date Comments Medication Review 02/05/2017 Encounter Details Date Type Department Care Team Description 02/05/2017 Telephone Adult [address] [address] Sharla ColtwylaoFrances DO Medication Review Social History [...] TUNG SELF FUNDED / Plan: EPO $20 [place] SELF / Product Type: EPO documented in this encounter Plan of Treatment Not on file documented as of this encounter Visit Diagnoses Not on filedocumented in this encounter Care Teams Insurance Healthcare Consultant Relationship Specialty Start Date End Date [...] Medicine 08/05/19 03/05/21 Rosalva Stephen MD [address] [place] [address] 48835 PCP - General Internal Medicine 03/06/21 03/11/21 Frances Sung DO PCP - General Internal Medicine 03/12/21 03/31/21 Rosalva Stephen MD [address] [place] [address] 06350 PCP - General Internal Medicine 04/01/21 documented as of this encounter
--- OUTSIDE RECORDS SUMMARY | 2025-10-10 11:02 | XMS_ITS | Encounter Summary ---
Author Organization [facility] Prior to 08/12/[address] [place] [address] 95277 Care Team Providers Care Supervisor Pigment Making Name Role Phone Krakowiak Colasacco, Frances DO [...] Unavailable Rosalva Stephen MD Primary Care Provider [phone] Krakowiak Colasacco, Frances DO Primary Care Pro vider Unavailable Rosalva Stephen MD Primary Care Provider [phone] Encounter Details Date Type Department Care Team Description 12/19/2016 Hospital Medical Records [address] [place] [address]64 Henry Lemos MD Social History Tobacco Use [...] filedocumented in this encounter Care Teams Supervisor Pigment Making Relationship Specialty Start Date End Date [...] Medicine 08/05/19 03/05/21 Rosalva Stephen MD [address] [place] [address] 37647 PCP - General Internal Medicine 03/06/21 03/11/21 Frances Sung DO PCP - General Internal Medicine 03/12/21 03/31/21 Rosalva Stephen MD [address] [place] [address] 97772 PCP - General Internal Medicine 04/01/21 documented as of this encounter
--- OUTSIDE RECORDS SUMMARY | 2025-10-10 11:03 | XMS_ITS | Encounter Summary ---
Author Organization [facility] Prior to 08/12/[address] [place] [address] 59180 Care Team Providers Care Stem Lead Former Name Role Phone Frances Sung DO Primary Care Pro vider Unavailable Milton Hummel Primary Care Provider Unav ailable Rj Lino MD Primary Care Provider Unava ilable Milton Hummel Primary Care Provider Unav ailable Frances Sung DO Primary Care Pro vider Unavailable Rosalva Stephen MD Primary Care Provider [phone] Frances Sung DO Primary Care Pro vider Unavailable Rosalva Stephen MD Primary Care Provider [phone] Encounter Details Date Type Department Care Team Description 01/19/2019 [facility] Medical Records [address] [place] [address] 54899 Abstract, Provider Social History Tobacco Use Types [...] on filedocumented in this encounter Care Teams Stem Lead Former Relationship Specialty Start Date End Date Frances Sung DO PCP - General Internal Medicine 07/12/18 02/24/19 Milton Hummel PCP - General Internal Medicine 02/25/19 06/26/19 Rj Lino MD PCP - General Internal Medicine 06/27/19 07/05/19 Milton Hummel PCP - General Internal Medicine 07/06/19 08/04/19 Frances Sung DO PCP - General Internal Medicine 08/05/19 03/05/21 Rosalva Stephen MD [address] [place] [address] 36186 PCP - General Internal Medicine 03/06/21 03/11/21 Frances Sung DO PCP - General Internal Medicine 03/12/21 03/31/21 Rosalva Stephen MD [address] [place] [address] 12392 PCP - General Internal Medicine 04/01/21 documented as of this encounter
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
--- OUTSIDE RECORDS SUMMARY | 2025-10-10 11:03 | XMS_ITS | Encounter Summary ---
Author Organization [facility] Prior to 08/12/2024 Address [address] [place] [address] Care Team Providers Care Consulting Psychiatrist Name Role Phone Hector Morris MD Primary Care Provider Unavail able [facility], [facility] Primary Care Provider Unavailabl e Krakowiak [...] Unavailable Rosalva Stephen MD Primary Care Provider [phone] Krakowiak Colasacco, Frances DO Primary Care Pro vider Unavailable Rosalva Stephen MD Primary Care Provider [phone] Encounter Details Date Type Department Care Team Description 10/04/2014 Hospital Medical Records [address] [place] [address] Jorge Collazo PA-C [address] [place] [address] [address] [place] [address] Social History Tobacco Use Types Packs/Day Years [...] on filedocumented in this encounter Care Teams Consulting Psychiatrist Relationship Specialty Start Date End Date Hector Morris MD PCP - General Internal Medicine 10/18/13 01/31/16 [facility], Pcp PCP - General Internal Medicine 02/01/16 [...] Medicine 08/05/19 03/05/21 Rosalva Stephen MD [address] [place] [address] PCP - General Internal Medicine 03/06/21 03/11/21 Frances Sung, DO PCP - General Internal Medicine 03/12/21 03/31/21 Rosalva Stephen MD [address] [place] [address] [id number] PCP - General Internal Medicine 04/01/21 documented as of this encounter
--- OUTSIDE RECORDS SUMMARY | 2025-10-10 11:03 | XMS_ITS | Encounter Summary ---
Author Organization [facility] Prior to 08/12/[address] [place] [address] Care Team Providers Care Family Educator Name Role Phone Sharla Gaytan, Frances DO Primary Care Pro vider Unavailable Milton Hummel Primary Care Provider Unav ailable Rj Lino MD Primary Care Provider Unava ilable Milton Hummel Primary Care Provider Unav ailable Sharla Westo, Frances DO Primary Care Pro vider Unavailable Rosalva Stephen MD Primary Care Provider [phone] Sharla Westo, Frances DO Primary Care Pro vider Unavailable Rosalva Stephen MD Primary Care Provider [phone] Encounter Details Date Type Department Care Team Description 01/28/2019 Orders Only Physiatry - [address] [address] Na Reardon MD [address] [place] [address] Dr [place] [id number] Chronic left shoulder pain; History of cervical [...] knee documented in this encounter Care Teams Family Educator Relationship Specialty Start Date End Date Frances Sung DO PCP - General Internal Medicine 07/12/18 02/24/19 Milton Hummel PCP - General Internal Medicine 02/25/19 06/26/19 Rj Lino MD PCP - General Internal Medicine 06/27/19 07/05/19 Milton Hummel PCP - General Internal Medicine 07/06/19 08/04/19 Frances Sung DO PCP - General Internal Medicine 08/05/19 03/05/21 Rosalva Stephen MD [address] [place] [address] [id number] PCP - General Internal Medicine 03/06/21 03/11/21 Frances Sung DO PCP - General Internal Medicine 03/12/21 03/31/21 Rosalva Stephen MD [address] [place] [address] [id number] PCP - General Internal Medicine 04/01/21 documented as of this encounter
--- OUTSIDE RECORDS SUMMARY | 2025-10-10 11:03 | XMS_ITS | Encounter Summary ---
Author Organization [facility] Prior to 08/12/[address] [place] [address] Care Team Providers Care Tellers Supervisor Name Role Phone Frances Sung DO Primary Care Pro vider Unavailable Milton Hummel Primary Care Provider Unav ailable Rj Lino MD Primary Care Provider Unava ilable Milton Hummel Primary Care Provider Unav ailable Frances Sung DO Primary Care Pro vider Unavailable Rosalva Stephen MD Primary Care Provider [phone] rFances Sung DO Primary Care Pro vider Unavailable Rosalva Stephen MD Primary Care Provider [phone] Encounter Details Date Type Department Care Team Description 12/16/2018 [facility] Medical Records [address] [place] [address] Abstract, Provider Social History Tobacco Use Types [...] on filedocumented in this encounter Care Teams Tellers Supervisor Relationship Specialty Start Date End Date Frances Sung DO PCP - General Internal Medicine 07/12/18 02/24/19 Milton Hummel PCP - General Internal Medicine 02/25/19 06/26/19 Rj Lino MD PCP - General Internal Medicine 06/27/19 07/05/19 Milton Hummel PCP - General Internal Medicine 07/06/19 08/04/19 Frances Sung DO PCP - General Internal Medicine 08/05/19 03/05/21 Rosalva Stephen MD [address] [place] [address] PCP - General Internal Medicine 03/06/21 03/11/21 Frances Sung DO PCP - General Internal Medicine 03/12/21 03/31/21 Rosalva Stephen MD [address] [place] [address] PCP - General Internal Medicine 04/01/21 documented as of this encounter
--- OUTSIDE RECORDS SUMMARY | 2025-10-10 11:03 | XMS_ITS | Encounter Summary ---
Author Organization [facility] Prior to 08/12/[address] [place] [address] Care Team Providers Care Manager Community Relations Name Role Phone Krakowiak Colasacco, Frances DO [...] Unavailable Rosalva Stephen MD Primary Care Provider [phone] Krakowiak Colasacco, Frances DO Primary Care Pro vider Unavailable Rosalva Stephen MD Primary Care Provider [phone] Encounter Details Date Type Department Care Team Description 10/07/2017 [facility] Medical Records [address] [place] [address] Abstract, Provider Social History Tobacco Use Types [...] filedocumented in this encounter Care Teams Manager Community Relations Relationship Specialty Start Date End Date Frances [...] Medicine 08/05/19 03/05/21 Rosalva Stephen MD [address] [place] [address] [id number] PCP - General Internal Medicine 03/06/21 03/11/21 Frances Sung, PCP - General Internal Medicine 03/12/21 03/31/21 Rosalva Stephen MD [address] [place] [address] [id number] PCP - General Internal Medicine 04/01/21 documented as of this encounter
--- OUTSIDE RECORDS SUMMARY | 2025-10-10 11:03 | XMS_ITS | Encounter Summary ---
Author Organization [facility] Prior to 08/12/[address] [place] [address] Care Team Providers Care Drafting Layout Man Name Role Phone Hector Morris MD Primary Care Provider Unavail able [facility], Pcp Primary Care Provider Unavailabl e [...] Unavailable Rosalva Stephen MD Primary Care Provider [phone] Krakowiak Colasacco, Frances DO Primary Care Pro vider Unavailable Rosalva Stephen MD Primary Care Provider [phone] Encounter Details Date Type Department Care Team Description 08/31/2014 Manager Of Learning Report Medical Records [address] [place] [address] Luis Pickens MD Social History Tobacco Use [...] on filedocumented in this encounter Care Teams Drafting Layout Man Relationship Specialty Start Date End Date Hector Morris MD PCP - General Internal Medicine 10/18/13 01/31/16 [facility], [facility] PCP - General [...] Medicine 08/05/19 03/05/21 Rosalva Stephen MD [address] [place] [address] PCP - General Internal Medicine 03/06/21 03/11/21 Frances Sung, PCP - General Internal Medicine 03/12/21 03/31/21 Rosalva Stephen MD [address] [place] [address] PCP - General Internal Medicine 04/01/21 documented as of this encounter
--- OUTSIDE RECORDS SUMMARY | 2025-10-10 11:03 | XMS_ITS | Encounter Summary ---
Author Organization [facility] Prior to 08/12/[address] [place] [address]65 Care Team Providers Care Stab Setter And Driller Name Role Phone Krakowiak Colasacco, Frances DO [...] Unavailable Rosalva Stephen MD Primary Care Provider [phone] Krakowiak Colasacco, Frances DO Primary Care Pro vider Unavailable Rosalva Stephen MD Primary Care Provider [phone] Encounter Details Date Type Department Care Team Description 06/03/2017 [facility] Medical Records [address] [place] [address] Abstract, Provider Social History Tobacco Use Types [...] on filedocumented in this encounter Care Teams Stab Setter And Driller Relationship Specialty Start Date End Date Frances [...] Medicine 08/05/19 03/05/21 Rosalva Stephen MD [address] [place] [address] [id number] PCP - General Internal Medicine 03/06/21 03/11/21 Frances Sung, PCP - General Internal Medicine 03/12/21 03/31/21 Rosalva Stephen MD [address] [place] [address] [id number] PCP - General Internal Medicine 04/01/21 documented as of this encounter
--- OUTSIDE RECORDS SUMMARY | 2025-10-10 11:03 | XMS_ITS | Encounter Summary ---
Author Organization [facility] Prior to 08/12/[address] [place] [address] Care Team Providers Care Varitype Operator Name Role Phone Krakowiak Colasacco, Frances [...] Unavailable Rosalva Stephen MD Primary Care Provider [phone] Krakowiak Colasacco, Frances DO Primary Care Pro vider Unavailable Rosalva Stephen MD Primary Care Provider [phone] Encounter Details Date Type Department Care Team Description 10/22/2017 Pt. Non Urgent Medical Question Physiatry - [place] [address] [place] [address] Na Reardon MD [address] [place] [address] Dr [place], [place] [id number] Social History Tobacco Use Types Packs/Day Years [...] of this encounter Progress Notes * Elizabeth Cheng M.A. 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 We're not allowed to switch assignments and the operating room floor is very hard on the back and knees. We have quite a few co-workers withback and knee issues that have had these intermittent KATY forms filled out because there is no light duty at work unfortunately. documented in this encounter Plan of Treatment Not on file documented as of this encounter Visit Diagnoses Not on filedocumented in this encounter Care Teams Varitype Operator Relationship Specialty Start Date End Date [...] Medicine 08/05/19 03/05/21 Rosalva Stephen MD [address] [place] [address] PCP - General Internal Medicine 03/06/21 03/11/21 Frances Sung, DO PCP - General Internal Medicine 03/12/21 03/31/21 Rosalva Stephen MD [address] [place] [address] PCP - General Internal Medicine 04/01/21 documented as of this encounter
--- OUTSIDE RECORDS SUMMARY | 2025-10-10 11:03 | XMS_ITS | Encounter Summary ---
Author Organization [facility] Prior to 08/12/[address] [place] [address] Care Team Providers Care Electric Repair Supervisor Name Role Phone Hector Morris MD Primary Care Provider Unavail able [facility], [facility] Primary Care Provider Unavailabl e Krakowiak [...] Unavailable Rosalva Stephen MD Primary Care Provider [phone] Krakowiak Colasacco, Frances DO Primary Care Pro vider Unavailable Rosalva Stephen MD Primary Care Provider [phone] Encounter Details Date Type Department Care Team Description 07/19/2014 Hospital Medical Records [address] [place] [address] Zane Dennis MD Social History Tobacco Use [...] filedocumented in this encounter Care Teams Electric Repair Supervisor Relationship Specialty Start Date End Date [...] PCP - General Internal Medicine 06/27/19 07/05/19 Milotn Hummel PCP - General Internal Medicine 07/06/19 08/04/19 Frances Sung, PCP - General Internal Medicine 08/05/19 03/05/21 Rosalva Stephen MD [address] [place] [address] PCP - General Internal Medicine 03/06/21 03/11/21 Frances Sung, PCP - General Internal Medicine 03/12/21 03/31/21 Rosalva Stephen MD [address] [place] [address] PCP - General Internal Medicine 04/01/21 documented as of this encounter
--- OUTSIDE RECORDS SUMMARY | 2025-10-10 11:03 | XMS_ITS | Encounter Summary ---
Author Organization [facility] Prior to 08/12/[address] [place] [address] Care Team Providers Care Fifth Hand Name Role Phone Sharla Gaytan, Frances DO Primary Care Pro vider Unavailable Milton Hummel Primary Care Provider Unav ailable Rj Lino MD Primary Care Provider Unava ilable Milton Hummel Primary Care Provider Unav ailable Sharla Westo, Frances DO Primary Care Pro vider Unavailable Rosalva Stephen MD Primary Care Provider [phone] Krakojob Coltwylao, Frances DO Primary Care Pro vider Unavailable Rosalva Stephen MD Primary Care Provider [phone] Encounter Details Date Type Department Care Team Description 01/14/2019 Pt. Non Urgent Medical Question Physiatry - [address] [address] Na Reardon MD [address] [place] [address] Dr [place] [id number] Social History Tobacco Use Types Packs/Day Years [...] appointment but should I also let the crane hooker know as well? Orall of these notes [...] on filedocumented in this encounter Care Teams Fifth Hand Relationship Specialty Start Date End Date Frances Sung DO PCP - General Internal Medicine 07/12/18 02/24/19 Milton Hummel PCP - General Internal Medicine 02/25/19 06/26/19 Rj Lino MD PCP - General Internal Medicine 06/27/19 07/05/19 Milton Hummel PCP - General Internal Medicine 07/06/19 08/04/19 Frances Sung DO PCP - General Internal Medicine 08/05/19 03/05/21 Rosalva Stephen MD [address] [place] [address] [id number] PCP - General Internal Medicine 03/06/21 03/11/21 Frances Sung DO PCP - General Internal Medicine 03/12/21 03/31/21 Rosalva Stephen MD [address] [place] [address] [id number] PCP - General Internal Medicine 04/01/21 documented as of this encounter
--- OUTSIDE RECORDS SUMMARY | 2025-10-10 11:03 | XMS_ITS | Encounter Summary ---
Author Organization [facility] Prior to 08/12/[address] [place] [address] Care Team Providers Care Survey Data Technician Name Role Phone Krakowiak Colasacco, Frances [...] Unavailable Rosalva Stephen MD Primary Care Provider [phone] Krakowiak Colasacco, Frances DO Primary Care Pro vider Unavailable Rosalva Stephen MD Primary Care Provider [phone] Encounter Details Date Type Department Care Team Description 11/03/2017 Transfer Records Medical Records [address] [place] [address] Abstract, Provider Social History Tobacco Use Types [...] 11/03/2017 4:32 PM EST Transfer Records from [facility] sent to Cristy Aggarwal R.N. Lumber Inspector. documented in this encounter Plan of Treatment Not on file documented as of this encounter Visit Diagnoses Not on filedocumented in this encounter Care Teams Survey Data Technician Relationship Specialty Start Date End Date [...] Medicine 08/05/19 03/05/21 Rosalva Stephen MD [address] [place] [address] PCP - General Internal Medicine 03/06/21 03/11/21 Frances Sung, PCP - General Internal Medicine 03/12/21 03/31/21 Rosalva Stephen MD [address] [place] [address] PCP - General Internal Medicine 04/01/21 documented as of this encounter
--- OUTSIDE RECORDS SUMMARY | 2025-10-10 11:03 | XMS_ITS | Encounter Summary ---
Author Organization [facility] Prior to 08/12/[address] [place] [address]95 Care Team Providers Care Joint Cleaning Machine Operator Name Role Phone Frances Sung DO Primary Care Pro vider Unavailable Milton Hummel Primary Care Provider Unav ailable Rj Lino MD Primary Care Provider Unava ilable Milton Hummel Primary Care Provider Unav ailable Frances Sung DO Primary Care Pro vider Unavailable Rosalva Stephen MD Primary Care Provider [phone] Frances Sung DO Primary Care Pro vider Unavailable Rosalva Stephen MD Primary Care Provider [phone] Encounter Details Date Type Department Care Team Description 12/09/2018 Medical Marijuana Card Medical Records [address] [place] [address] Abstract, Provider Social History Tobacco Use Types [...] on filedocumented in this encounter Care Teams Joint Cleaning Machine Operator Relationship Specialty Start Date End Date Frances Sung DO PCP - General Internal Medicine 07/12/18 02/24/19 Milton Hummel PCP - General Internal Medicine 02/25/19 06/26/19 Rj Lino MD PCP - General Internal Medicine 06/27/19 07/05/19 Milton Hummel PCP - General Internal Medicine 07/06/19 08/04/19 Frances Sung DO PCP - General Internal Medicine 08/05/19 03/05/21 Rosalva Stephen MD [address] [place] [address] PCP - General Internal Medicine 03/06/21 03/11/21 Frances Sung DO PCP - General Internal Medicine 03/12/21 03/31/21 Rosalva Stephen MD [address] [place] [address] PCP - General Internal Medicine 04/01/21 documented as of this encounter
--- OUTSIDE RECORDS SUMMARY | 2025-10-10 11:03 | XMS_ITS | Encounter Summary ---
Author Organization [facility] Prior to 08/12/[address] [place] [address] Care Team Providers Care Billing Machine Operator Name Role Phone Krakowiak Colasacco, Frances [...] Unavailable Rosalva Stephen MD Primary Care Provider [phone] Krakowiak Colasacco, Frances DO Primary Care Pro vider Unavailable Rosalva Stephen MD Primary Care Provider [phone] Encounter Details Date Type Department Care Team Description 11/01/2017 Pt. Non Urgent Medical Question Physiatry - [place] [address] [place] [address] Na Reardon MD [address] [place] [address] Dr [place], [place] [phone] Social History Tobacco Use Types Packs/Day Years [...] on filedocumented in this encounter Care Teams Billing Machine Operator Relationship Specialty Start Date End [...] Medicine 08/05/19 03/05/21 Rosalva Stephen MD [address] [place] [address] PCP - General Internal Medicine 03/06/21 03/11/21 Frances Sung, DO PCP - General Internal Medicine 03/12/21 03/31/21 Rosalva Stephen MD [address] [place] [address] PCP - General Internal Medicine 04/01/21 documented as of this encounter
--- OUTSIDE RECORDS SUMMARY | 2025-10-10 11:03 | XMS_ITS | Encounter Summary ---
Author Organization [facility] Prior to 08/12/[address] [place] [address] Care Team Providers Care Backup Administrative Coordinator Name Role Phone Frances Sung DO Primary Care Pro vider Unavailable Milton Hummel Primary Care Provider Unav ailable Rj Lino MD Primary Care Provider Unava ilable Milton Hummel Primary Care Provider Unav ailable Frances Sung DO Primary Care Pro vider Unavailable Rosalva Stephen MD Primary Care Provider [phone] Frances Sung DO Primary Care Pro vider Unavailable Rosalva Stephen MD Primary Care Provider [phone] Encounter Details Date Type Department Care Team Description 12/28/2018 Release of Information Medical Records [address] [place] [address] Abstract, Provider Social History Tobacco Use Types [...] on filedocumented in this encounter Care Teams Backup Administrative Coordinator Relationship Specialty Start Date End Date Frances Sung DO PCP - General Internal Medicine 07/12/18 02/24/19 Milton Hummel PCP - General Internal Medicine 02/25/19 06/26/19 Rj Lino MD PCP - General Internal Medicine 06/27/19 07/05/19 Milton Hummel PCP - General Internal Medicine 07/06/19 08/04/19 Frances Sung DO PCP - General Internal Medicine 08/05/19 03/05/21 Rosalva Stephen MD [address] [place] [address] PCP - General Internal Medicine 03/06/21 03/11/21 Frances Sung DO PCP - General Internal Medicine 03/12/21 03/31/21 Rosalva Stephen MD [address] [place] [address] PCP - General Internal Medicine 04/01/21 documented as of this encounter
--- OUTSIDE RECORDS SUMMARY | 2025-10-10 11:03 | XMS_ITS | Encounter Summary ---
Author Organization [facility] Prior to 08/12/[address] [place] [id number] Care Team Providers Care Solid Waste Truck Driver Name Role Phone Sharla Gaytan, Frances DO Primary Care Pro vider Unavailable Milton Hummel Primary Care Provider Unav ailRj Pyle MD Primary Care Provider Unava ilable Milton Hummel Primary Care Provider Unav ailable Sharla Westo, Frances DO Primary Care Pro vider Unavailable Rosalva Stephen MD Primary Care Provider [phone] Sharla Coltwylao, Frances DO Primary Care Pro vider Unavailable Rosalva Stephen MD Primary Care Provider [phone] Reason for Visit * Reason Onset Date Comments Medical Records 12/03/2018 RE: medical seda cl Encounter Details Date Type Department Care Team Description [facility]/03/[facility] [address] [id number] Na Reardon MD [address] [place] [id number] Dr [facility] [place] [id number] Medical Records (RE: medical marijuana) Social History [...] the Medicaluse of Marijuana Program. Registration number [id number] Expiration 01/11/2019 PSI entered Copy of card to Dr Avila for review documented in this encounter Plan of Treatment Not on file documented as of this encounter Visit Diagnoses Not on filedocumented in this encounter Care Teams Solid Waste Truck Driver Relationship Specialty Start Date End Date Frances Sung DO PCP - General Internal Medicine 07/12/18 02/24/19 Milton Hummel PCP - General Internal Medicine 02/25/19 06/26/19 Rj Lino MD PCP - General Internal Medicine 06/27/19 07/05/19 Milton Hummel PCP - General Internal Medicine 07/06/19 08/04/19 Frances Sung DO PCP - General Internal Medicine 08/05/19 03/05/21 Rosalva Stephen MD [address] [place] [id number] PCP - General Internal Medicine 03/06/21 03/11/21 Frances Sung DO PCP - General Internal Medicine 03/12/21 03/31/21 Rosalva Stephen MD [address] [place] [id number] PCP - General Internal Medicine 04/01/21 documented as of this encounter
== END 2025-10-10 09:28 | disposition home or self-care (01) ==
PROVIDERS: PCP Physician Assistant; Visit Provider Physician Assistant
DX: Z00.00 Encounter for general adult medical examination without abnormal findings (principal); F33.1 Major depressive disorder, recurrent, moderate; E78.9 Disorder of lipoprotein metabolism, unspecified; R14.0 Abdominal distension (gaseous); Z13.1 Encounter for screening for diabetes mellitus

== ENCOUNTER 2025-10-10 08:55 | Outpatient (REF) | payer OTHER, SELFPAY ==
[2025-10-10 11:56] LABS: Alanine Aminotransferase 21 U/L (0-31); Albumin Level 4.1 g/dL (3.5-5.0); Alkaline Phosphatase 73 U/L (39-117); Anion Gap 9 (12-20); Aspartate Amino Transferase 22 U/L (5-31); Blood Urea Nitrogen 11 mg/dL (9-16); Calcium 8.6 mg/dL (8.4-10.2); Carbon Dioxide 30 mmol/L (22-29); Chloride 107 mmol/L (96-108); Estimated Glomerular Filt Rate > 60; Potassium 4.2 mmol/L (3.3-5.1); Sodium 142 mmol/L (135-145); Total Protein 7.0 g/dL (6.5-8.0)
== END 2025-10-10 08:56 | disposition home or self-care (01) ==
LOC: HO.LAB 08:55
PROVIDERS: PCP Physician Assistant; Visit Provider Physician Assistant
DX: Z00.00 Encounter for general adult medical examination without abnormal findings (principal); M25.512 Pain in left shoulder; M54.2 Cervicalgia; M25.812 Other specified joint disorders, left shoulder; M62.838 Other muscle spasm; F33.1 Major depressive disorder, recurrent, moderate; E78.9 Disorder of lipoprotein metabolism, unspecified; R14.0 Abdominal distension (gaseous); Z13.1 Encounter for screening for diabetes mellitus; Z79.899 Other long term (current) drug therapy
CPT/HCPCS: 20610; 36415; 80053; J2003; J3301

== ENCOUNTER 2025-10-10 15:21 | Outpatient (AMB) | payer OTHER, SELFPAY ==
--- NOTE | 2025-10-10 15:28 | A.PHYSOV_ITS ---
Vital Signs 10/10/25 15:30 Height 5 ft 3 in Weight 155 lb BMI 27.5 Intake Visit Reasons: left shoulder pain Intake Note: Patient is a 50 year old female here today for left shoulder pain. Patient has had previous surgery on Left shoulder approximately 7 years ago. Patient has had pain in shoulder for a long time but it has been radiating down into arm for 6-8 weeks. 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 She reports that for the past six to eight weeks, she has experienced pain radiating from her neck down her arm, sometimes reaching her lower arm. She does not report associated numbness or tingling. The pain is exacerbated by both neck and shoulder movements. Her medical history is significant for Juan-Danlos syndrome, two prior spinal fusions, and a known bulging disc in an area that was not fused. She has also had shoulder surgery for removal of a bone spur. She reports that this current pain is similar to what she experienced prior to her previous surgeries involving both her neck and shoulder. Regarding medications, she has previously taken Lyrica but stopped it. She notes that lidocaine has never been effective for her, which she attributes to her Juan-Danlos syndrome. She has had steroid injections in the past with good effect. She is requesting a prescription for a muscle relaxer, specifically Tizanidine. Pain Description - Onset: The patient reports the onset of pain radiating down her arm was six to eight weeks ago. - Location: The pain originates in the neck. - Radiation: Pain radiates down her arm, sometimes to the lower arm. - Quality: The patient describes the sensation as pain. - Associated Symptoms: The patient denies numbness or tingling. - Exacerbating Factors: Pain is worsened by both neck and shoulder movement. Results - Prior Imaging: Patient reports a history of a bulging disc found on a prior study in a non-fused spinal segment. [facility] Medical History Blood in stool Alternating constipation and diarrhea Epigastric abdominal pain Feeling suicidal Depression Osteoarthritis Depression GERD (gastroesophageal reflux disease) Atypical chest pain GEORGES (obstructive sleep apnea) On anticoagulant therapy Menorrhagia Pulmonary embolism Syncope and collapse Subchondral sclerosis EDS (Juan-Danlos syndrome) Surgical History Hx of colonoscopy Hx of hand surgery History of endometrial ablation H/O bilateral breast reduction surgery Hx of section History of back surgery H/O knee surgery H/O shoulder surgery (~02/2019) Family History Paternal Aunt Breast cancer Father Diabetes High cholesterol HTN (hypertension) Maternal Uncle Stroke Maternal Grandfather Emphysema lung Lung cancer Maternal Grandmother Asthma Son Asthma Social History Household Members: Children Housing: Apartment Do you presently have visiting nurse or other home services: No Alcohol intake: never Comment: stated was minimal Patient Tobacco Use Status: Never used Tobacco Tobacco use type: Cigarette e-Cigarette/Vaping Use: Never Used Second Hand Smoke Exposure: No Substance Use Type: Marijuana Advance Directives Date on File: 08/31/20 service: No Current occupational status: employed 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 - Neurological: Reports pain radiating down the arm but denies numbness or tingling. - Endocrine: Denies diabetes. Physical Exam Exam Exam: Physical Exam - Neck: Limited active flexion. - Rotation and extension are performed. - Spurling's maneuver on the left reproduces localized pain. - Shoulder: Forward flexion of the arm is non-painful. Positive Mandujano impingement test - Pain is elicited with resisted internal and external rotation. - Significant pain is elicited with passive movement by the examiner. - Neurological: Sensation to light touch is symmetric in both arms. Vital Signs: BMI result Body Mass Index 27.5 Office Procedures AMB Shoulder Injection AMB Shoulder Injection Procedure Details: Left Subacromial injection Procedure: The patient was educated about risks, complications and benefits including but not limited to increased serum glucose, infection, nerve damage, bleeding, tendon/ligament damage and pain. We agree with a subacromial injection is the next best step in the treatment plan. V erbal consent was obtained. Using aseptic technique, the skin was cleansed with Betadine. Ethyl chloride was used to desensitize the skin. Using a posterior approach, 40 mg of Kenalog and 3 mL 2% lidocaine were injected using a 25-gauge inch and a half needle into the subacromial space. The patient tolerated the procedure well without immediate complication. Postinjection instructions were given. Shoulder Injection - : Left All charges added?: Procedure code (CPT) selection complete Office Meds Kenalog 40 mg/mL suspension for injection Performing Provider: RODERICK Pizarro [facility] Administered by: RODERICK Pizarro on 10/10/25 16:14 Dose Route Admin Location Dispensed Lot Number Expiration Date [facility] Chicken Vaccinator 40 mg intrabursal 1 mL [id number] [employer] Total Dispensed Waste 1 mL 0 % lidocaine (PF) 20 mg/mL (2 %) injection solution Performing Provider: RODERICK Pizarro [facility] Administered by: RODERICK Pizarro on 10/10/25 16:14 Dose Route Admin Location Dispensed Lot Number Expiration Date [facility] Chicken Vaccinator 60 mg intrabursal 5 mL [id number] [employer] Total Dispensed Waste 5 mL 40 % Assessment & Plan Assessment & Plan (1) Impingement of left shoulder: Code(s): M25.812 - Other specified joint disorders, left shoulder Category: Medical Plan Pain Management - Analgesia: The patient has previously stopped taking Lyrica. - She has had successful pain relief from steroid injections in the past. - She has requested a prescription for the muscle relaxer Tizanidine. - Adverse Effects/Medication Intolerance: The patient reports that lidocaine has never been effective for her. Plan Patient was informed and verbally consented to the use of an ambient scribe for clinic note documentation during this visit. 1. Left Shoulder Pain The etiology of the patient's radiating neck and arm pain is unclear and could be originating from either the cervical spine or the shoulder, given her complex history. Physical examination reveals significant pain with movement of the left shoulder. Due to it being a safer procedure, a diagnostic and therapeutic corticosteroid injection into the left shoulder will be performed. If the injection provides relief of her arm and neck pain, it will suggest a shoulder etiology; if not, further evaluation of the cervical spine will be pursued. Informed consent was obtained after discussing risks including infection, bleeding, and nerve damage. 2. Muscle Spasm The patient requested a muscle relaxer for tightness. A prescription for Tizanidine will be provided, as Lyrica was previously used and stopped. Discussion Notes I discussed with the patient that her symptoms of neck and arm pain could be due to a problem in her neck or her shoulder. I explained that based on the physical exam, where moving her shoulder caused significant pain, and the fact that a shoulder injection is much safer than a neck injection, I recommended we start with a cortisone shot in her left shoulder. I explained that this would serve as a diagnostic tool; if the shoulder injection resolves her arm and neck pain, we will know the problem is in her shoulder. If it does not help, then we can confirm the issue is likely her neck and proceed with more invasive options for the neck. I reviewed the risks of the procedure, including infection, bleeding, and nerve damage, and obtained her informed consent. We also discussed her request for a muscle relaxer, and I agreed to prescribe Tizanidine. Patient Instructions - You will receive a steroid injection in your left shoulder today to help determine the source of your pain and to provide relief. - Watch the injection site for any signs of infection, such as increasing redness, swelling, warmth, or drainage, and contact us if this occurs. - A new prescription for a muscle relaxer, Tizanidine, will be sent to your pharmacy. - If the injection does not help your pain, we will need to discuss other options for your neck at a follow-up visit. Orders: Orders AMB Shoulder Injection Today M25.812 - Other specified joint disorders, left shoulder Medications: New tizanidine 4 mg PO Q8H PRN 90 tabs 6RF muscle spasticity 30 days M79.10 - Myalgia, unspecified site Coding Level of Care Code Est Pt Level 4 (67931) Diagnoses Impingement of left shoulder M25.812 CPT Codes AMB Shoulder Injection - Hip/Bursa Injection - 00266: Left ([id number])
[2025-10-10 15:30] VITALS: BMI 27.5
== END 2025-10-10 16:02 | disposition home or self-care (01) ==
LOC: HO.HPHYS 15:22
PROVIDERS: PCP Physician Assistant; Visit Provider Physician Assistant
DX: M25.812 Other specified joint disorders, left shoulder (principal)
CPT/HCPCS: 20610; 99214